=== PATIENT | female | born 1960 | race Caucasian/White ===

== ENCOUNTER 2023-05-04 10:09 | Outpatient (CLI) | payer OTHER, SELFPAY | END 2023-05-04 10:10 | disposition home or self-care (01) | LOC: NFLDREF 10:15 | PROVIDERS: PCP Internal Medicine; Visit Provider Internal Medicine | DX: I10 Essential (primary) hypertension (principal) | CPT/HCPCS: 80048 ==

== ENCOUNTER 2023-05-19 15:44 | Outpatient (CLI) | payer OTHER, SELFPAY ==
--- NOTE | 2023-05-19 16:00 | US_ITS ---
Patient: SHREE MAYORGA Facility:?[facility] R[facility] Patient ID:?[id number] Site Patient ID:?[id number]. Site :?[id number] Study:?US-Abdomen AORTA-05/19/2023 4:36:42 PM Ordering Physician:RUBI ORDAZ Final Report: CLINICAL HISTORY: Abdominal aortic aneurysm. COMPARISON: 02/07/2020, 04/13/2018, 09/10/2016. TECHNIQUE: The abdominal aorta and iliac arteries were examined with basilio-scale ultrasound, color flow and Doppler spectral analysis. Bypass grafts and stents may be evaluated per exam specific protocol. Vessel size, peak systolic velocity (PSV) and velocity ratios if applicable, were obtained and documented at sites per exam specific protocol. FINDINGS: An infrarenal abdominal aortic aneurysm is present measuring 3.5 x 3 cm in transverse and AP dimensions, increased in size from 2.7 x 2.7 cm on prior examination. AP cm Width Cm Proximal AO 2.1 cm. 2.4 cm. Mid AO 1.9 cm. 2.1 cm. Distal AO 3.0 cm. 3.5 cm. Right LUCAS 0.7 cm. 0.9 cm, Left LUCAS 0.7 cm. 1.1 cm. IMPRESSION: Infrarenal abdominal aortic aneurysm measuring up to 3.5 cm, increased in size from 2.7 cm on prior examination. Marcos Oneill M.D. [email or web address] VANESSA/radha / DW/Dictated by: Marcos Oneill MD @ 05/21/2023 12:10:00 PM Signed by:Josefina Oneill MD @05/21/2023 1:04:22 PM (Electronic Signature)
== END 2023-05-19 15:45 | disposition home or self-care (01) ==
LOC: US 15:45
PROVIDERS: PCP Internal Medicine; Visit Provider Internal Medicine
DX: I71.40 Abdominal aortic aneurysm, without rupture, unspecified (principal)
CPT/HCPCS: 76775

== ENCOUNTER 2023-06-26 08:15 | Outpatient (CLI) | payer OTHER, SELFPAY ==
--- OUTSIDE RECORDS SUMMARY | 2023-06-29 11:37 | XMS_ITS | Referral Summary ---
Author Name Unknown Organization [facility] Address [address] [place] [address] Care Team Providers Care First Beater Name Role Phone Elsewhere, Pcp Primary Care Provider Unavailabl e Source Comments Patient records contain information from all sites at [facility]. For routine questions regarding patient records, call [phone] during business hours, M-F 8:00 AM - 5:00 PM Central Time. Record requests for emergency care only can be directed to [phone] at any time.[facility] Encounters Date Type Department Care Team Description 06/19/2023 11:30 AM CDT Virtual Visit Department of Nicotine Dependence, [facility], in [place], [place] [address] [place] [address] Dino Castillo M.A. Nicotine Dependence Cigarettes With Withdrawal (Primary Dx) 06/09/2023 Clinical Communication Department of Vascular Medicine in [place], [place] [address] [place] [address] Isaiah Manrique M.D. Appt Request 06/01/2023 Clinical Communication Division of Pulmonary Medicine in [place], [place] [address] [place] [phone] Trav Brice M.D. 05/31/2023 Clinical Communication Division of Pulmonary Medicine in [place], [place] [address] [place] [phone] Anum Jacobson APRN, C.N.P., D.N.P. Forms (Oxygen concentrator forms) 05/26/2023 Orders Only Department of Vascular Medicine in [place], [place] [address] [place] [phone] Dilcia Ingram D.O. Abdominal Aortic Aneurysm Without Rupture Unspecified (HCC) (Primary Dx) 05/24/2023 8:15 AM CDT Comprehensive Visit Department of Cardiovascular Medicine in [place], [place] [address] [place] [phone] Chuck Townsend M.D., Ph.D. Angina Pectoris Tobacco User 05/23/[address] [address] Rupali Tate M.D. Abdominal Aortic Aneurysm Without Rupture Unspecified (HCC) (Primary Dx) 05/23/2023 2:53 PM CDT - 05/23/2023 11:59 PM CDT Hospital Encounter Department of Cardiovascular Diseases in [address] [phone] Krupa Bates M.D. Angina Pectoris Tobacco User Discharge Disposition: Home or Self Care 05/23/2023 8:30 AM CDT Diagnostic Division of Pulmonary Medicine in [address] [phone] Krupa Bates M.D. Chronic Obstructive Pulmonary Disease (HCC) 05/23/2023 1:30 PM CDT Comprehensive Visit Division of Pulmonary Medicine in [address] [phone] Anum Jacobson APRN, C.NJustinP., D.N.P. Chronic Obstructive Pulmonary Disease (HCC) (Primary Dx); Shortness Of Breath; Snoring 05/22/2023 2:00 PM CDT Diagnostic Division of Pulmonary Medicine in [address] [phone] Krupa Bates M.D. Chronic Obstructive Pulmonary Disease (HCC) 05/22/2023 2:45 PM CDT - 05/22/2023 11:59 PM CDT Hospital Encounter Department of Radiology, [facility], in [place], [place] [address] [place] [address] Perla Lorenz M.D. Shortness Of Breath Discharge Disposition: Home or Self Care 05/09/2023 8:30 AM STUDENT SUCCESS COACH Virtual Visit Department of Nicotine Dependence, [facility] in [place], [place] [address] [place] [phone] Dino Castillo M.A. Nicotine Dependence Cigarettes With Withdrawal (Primary Dx) 05/04/2023 Clinical Communication [facility], Third Floor [address] [place] [phone] Radha Davidson R.R.T., L.R.T. Cardiomyopathy (Hospital COPD RT ten day post discharge call) 04/28/2023 Clinical Communication [facility], Third Floor [address] [place] [phone] Radha Davidson R.R.T., L.R.T. Post Hospital Follow-up (Hospital Copd RT 24-48Hr post discharge call) 04/26/2023 Clinical Communication Division of Community Internal Medicine, [facility] in [place], [place] [address] [place] [phone] Krupa Bates M.D. 04/26/2023 Clinical Communication Department of Pulmonary Rehabilitation in [place], [place] [address] [place] [phone] Krupa Bates M.D. 04/24/2023 1:49 AM STUDENT SUCCESS COACH - 04/26/2023 1:30 PM STUDENT SUCCESS COACH Emergency [facility], Third Floor [address] [place] [phone] Silvia Harris M.D., M.S. Zach Erickson M.D. Dulohery Scrodin, Rola M, M.D. Pneumonia (Primary Dx); Shortness Of Breath; Chronic Obstructive Pulmonary Disease Exacerbation (HCC); Nicotine Dependence Cigarettes With Withdrawal; Chronic Obstructive Pulmonary Disease (HCC); Stroke (HCC) Discharge Disposition: Home or Self Care 04/25/2023 Clinical Communication Department of Cardiovascular Medicine in [place], [place] [address] [place] [address] Non Destructive Evaluation SpecialistZachary M.D. Triage (Rafael Lopez, # [id number]) 04/25/2023 Clinical Communication [facility] [address] [place] [phone] Sanford Villatoro M.D. Post Hospital Follow-up 04/24/2023 Orders Only Division of Pulmonary Medicine in [place], [place] [address] [place] [phone] Dawn Rios M.D. 04/24/2023 Clinical Communication [facility] [address] [place] [phone] Perla Lorenz M.D. Post Hospital Follow-up 04/24/2023 Clinical Communication Department of Nicotine Dependence, [facility] in [place], [place] [address] [place] [address] Dino Castillo M.A. Follow-up Orders; New Med Request from Last 3 Months Allergies Active Allergy Reactions Criticality Noted Date Comments Penicillins Edema (Reselect Reaction) 06/12/2010 Penicillin injectables ONLY Sulfa (Sulfonamide Antibiotics) Hives (Reselect Reaction) 06/12/2010 Medications Medication Sig Dispensed Refills Start Date End Date Status aspirin, buffered, 325 mg tablet Take 1 tablet (325 mg total) by mouth daily. 360 tablet 04/06/2019 Active acetaminophen (TYLENOL) 500 mg tablet Take 1,000 mg by mouth as needed for pain. Active ibuprofen (ADVIL,MOTRIN) 200 mg tablet Take 400 mg by mouth as needed for pain. Active tiotropium-olodate roL (Stiolto Respimat) 2.5-2.5 mcg/actuation inhaler Inhale 2 puffs daily. 4 g 11 04/25/2023 Active amLODIPine (NORVASC) 5 mg tablet Take 1 tablet (5 mg total) by mouth daily. 90 tablet 3 04/25/2023 Active valsartan (DIOVAN) 80 mg tablet Take 1 tablet (80 mg total) by mouth at bedtime. 30 tablet 11 04/25/2023 Active atorvastatin (LIPITOR) 80 mg tabletIndications: Stroke (HCC) Take 1 tablet (80 mg total) by mouth at bedtime. 90 tablet 3 04/26/2023 Active nitroglycerin (NITROSTAT) 0.[address] 1 tablet (0.4 mg total) under the tongue every 5 (five) minutes as needed for chest pain. 30 tablet 04/26/2023 Active formoterol (PERFOROMIST) 20 mcg/2 mL nebulizer solutionIndication s:Shortness Of Breath,Chronic Obstructive Pulmonary Disease (HCC) Inhale 2 mL (20 mcg total) by nebulization 2 (two) times a day. 120 mL 11 05/23/2023 05/22/2024 Active revefenacin (YUPELRI) 175 mcg/3 mL solution for nebulization nebulizer solutionIndication s:Shortness Of Breath,Chronic Obstructive Pulmonary Disease (HCC) Inhale 3 mL (0.175 mg total) by nebulization daily. 90 mL 11 05/23/2023 05/22/2024 Active albuterol 90 mcg/actuation inhalerIndications :Shortness Of Breath,Chronic Obstructive Pulmonary Disease (HCC) Inhale 2 puffs every 4 (four) hours as needed for wheezing or shortness of breath. 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 Resolved Problems Problem Noted Date Diagnosed Date Resolved Date Pain Chest 04/26/2023 04/26/2023 Hypertensive Urgency 04/26/2023 024 Immunizations Name Administration Dates Next Due H1N1 All Forms 12/31/2008 Influenza, Unspecified 12/09/2009 Social History Tobacco Use Types Packs/Day Years Used Date Smoking Tobacco: Former Cigarettes 1 49.1 0 03/14/1974 - 04/24/2023 Smokeless Tobacco: Never Tobacco Cessation:Counseling Given: Not Answered Alcohol Use Standard Drinks/Week Comments Yes 0 (1 standard drink = 0.6 oz pur e alcohol) Very very rarely [facility] Utilities Answer Date Recorded In the past 12 months has e [employer], gas, oil, or water [employer] threatened to shut off services in your home? No 05/17/2023 Humiliation, Afraid, Rape, and Kick questionnair e Answer Date Recorded Within the last year, have y ou been afraid of your partner or ex-partner? No 04/24/2023 Within the last year, have y ou been humiliated or emotionally abused in other ways by your partner or ex-partner? No Within the last year, have y ou been kicked, hit, slapped, or otherwise physically hurt by your partner or ex-partner? No 04/24/2023 Within the last year, have y ou been raped or forced to have any kind of sexual activity by your partner or ex-partner? No 04/24/2023 Social Connection and Isolation Panel [NHANES] A nswer Date Recorded Frequency of Communication with Friends and Fami ly Not on file 07/20/2019 How often do you get together with friends or re latives? Never 07/20/2019 How often do you attend denominational or cheondoism serv ices? Never 07/20/2019 Active Member of Clubs or Organizations Not on f ile 07/20/2019 How often do you attend meet ings of the clubs or organizations you belong to? Never 07/20/2019 Marital Status Not on file 07/20/2019 AUDIT-C Answer Date Recorded Frequency of Alcohol Consumption Monthly or less 02/12/2019 Average Number of Drinks 1 or 2 019 Frequency of Binge Drinking Never 02/03 Overall Financial Resource Strain (CARDIA) Answe r Date Recorded How hard is it for you to pa y for the very basics like food, housing, medical care, and heating? Somewhat hard 07/20/2019 PHQ-2 Answer Date Recorded PHQ-2 Score 2 04/29/2019 [facility] [place] of Occupat ional Health - Occupational Stress Questionnaire Answer Date Recorded Feeling of Stress Only a little 02/12/2019 Exercise Vital Sign Answer Date Recorde d On average, how many days pe r week do you engage in moderate to strenuous exercise (like a brisk walk)? 3 days 05/07/2023 On average, how many minutes do you engage in exercise at this level? 30 min 05/07/2023 Hunger Vital Sign Answer Date Recorded Within the past 12 months, y ou worried that your food would run out before you got the money to buy more. Never true 05/17/19 Within the past 12 months, t he food you bought just didn't last and you didn't have money to get more. Never true 05/17/2023 PRAPARE - Transportation Answer Date Re corded In the past 12 months, has l ack of transportation kept you from medical appointments or from getting medications? No 05/04 In the past 12 months, has l ack of transportation kept you from meetings, work, or from getting things needed for daily living? No 05/17/2023 Depression Answer Date Recor ded PHQ-9 Total Score (max 27) 6 04/29 Nutrition Answer Date Recorded Nutrition: EVOO Fat Source Unknown 05/06 On average, how many serving s of fruits and vegetables do you eat per day (serving size is equal to 1 cup or approximately the size of a tennis ball)? 3-5 05/07/2023 Dental Answer Date Recorded Dental: Regular Dentist Yes 05/07/19 Employment Answer Date Recorded Employment status Employed and actively working without restrictions 05/07/2023 Housing Stability Answer Date Recorded What is your living situation today? I have a [facility] place to live 05/17/2023 Education Answer Date Recorded What is the highest level of school you have completed or the highest degree you have received? Associate degree: academic program 02/12/2019 Sex and Gender Information Value Date Recorded Sex Assigned at Female 05/07/2023 12:13 PM STUDENT SUCCESS COACH Gender Identity Female 07/20/2019 7:51 PM CDT Sexual Orientation Straight 07/20/2019 7: 51 PM CDT Last Filed Vital Signs Vital Sign Reading Time Taken Comments Blood Pressure 172/79 04/26/2023 12:20 PM STUDENT SUCCESS COACH Pulse 83 04/26/2023 12:20 PM STUDENT SUCCESS COACH Temperature 36.6 ??C (97.9 ??F) 04/26/2023 12:[address] Respiratory Rate 16 04/26/2023 12:20 PM STUDENT SUCCESS COACH Oxygen Saturation 93% 05/23/2023 1:21 PM CDT Inhaled Oxygen Concentration - - Weight 78 kg (171 lb 15.3 oz) 04/24/2023 9:30 AM STUDENT SUCCESS COACH Height 153.4 cm (5' 0.39) 04/24/2023 4:35 AM CS T Body Mass Index 33.15 04/24/2023 4:35 AM STUDENT SUCCESS COACH Plan of Treatment Upcoming Encounters Date Type Department Care Team (Late st Contact Info) Description 07/05/2023 9:30 AM CDT Appointment Department of Laboratory Medicine and Pathology, [facility] in [place], [place] [address] [place] [phone] Dilcia Ingram D.O. [address] [place] [phone] 07/05/2023 10:30 AM CDT Hospital Encounter Department of Radiology, [facility] in [place], [place] [address] [place] [address] Dilcia Ingram D.O. [address] [place] [phone] 07/05/2023 1:00 PM CDT Comprehensive Visit Department of Vascular Medicine in [place], [place] [address] [place] [phone] Isaiah Manrique M.D. [address] [place] [phone] Procedures Procedure Name Priority Date/Time Associated Diagnosis Comments ECHO STRESS 2D WITH COLOR AND LIMITED DOPPLER Routine 05/23/2023 4:15 PM CDT Angina Pectoris Tobacco User PULMONARY FUNCTION TESTS Routine 05/23/2023 8:40 AM CDT Shortness Of Breath OXYGEN TITRATION Routine 05/23/2023 8:36 AM CDT Chronic Obstructive Pulmonary Disease (HCC) CT CHEST WITHOUT IV CONTRAST RAD - Routine (most inpatients and all outpatients) 05/22/2023 3:02 PM CDT Shortness Of Breath PUL HOME OVERNIGHT OXIMETRY Routine 05/22/2023 Chronic Obstructive Pulmonary Disease (HCC) OUTSIDE US BODY Routine 05/19/2023 3:55 PM CDT BASIC METABOLIC PANEL, S/P Routine 04/26/2023 10:43 AM STUDENT SUCCESS COACH CBC WITH DIFFERENTIAL, B Routine 04/26/2023 10:43 AM STUDENT SUCCESS COACH NOCTURNAL OXYGEN STUDY - RT Routine 04/25/2023 4:18 PM STUDENT SUCCESS COACH LIPID PANEL, S STAT 04/25/2023 2:27 PM STUDENT SUCCESS COACH TROPONIN T, 5TH GEN, P STAT 04/25/2023 2:27 PM STUDENT SUCCESS COACH ECG Routine 04/25/2023 9:57 AM STUDENT SUCCESS COACH TROPONIN T, 2H/6H, 5TH GEN, P Timed 04/25/2023 9:50 AM STUDENT SUCCESS COACH MRSA/STAPHYLOCOCCU S AUREUS, NASAL, BY PCR Routine 04/25/2023 8:32 AM STUDENT SUCCESS COACH REMOTE OXIMETRY MONITORING CONT. Routine 04/25/2023 8:02 AM STUDENT SUCCESS COACH TROPONIN T, BASELINE, 5TH GEN, P STAT 04/25/2023 7:11 AM STUDENT SUCCESS COACH BASIC METABOLIC PANEL, S/P Routine 04/25/2023 7:11 AM STUDENT SUCCESS COACH CBC WITH DIFFERENTIAL, B Routine 04/25/2023 7:11 AM STUDENT SUCCESS COACH ECG STAT 04/25/2023 6:44 AM STUDENT SUCCESS COACH REMOTE OXIMETRY MONITORING CONT. Routine 04/24/2023 8:00 PM STUDENT SUCCESS COACH REMOTE OXIMETRY MONITORING CONT. Routine 04/24/2023 8:02 AM STUDENT SUCCESS COACH BACTERIA / HALI CULTURE, BLOOD Routine 04/24/2023 7:50 AM STUDENT SUCCESS COACH BACTERIA / HALI CULTURE, BLOOD Routine 04/24/2023 7:36 AM STUDENT SUCCESS COACH REMOTE OXIMETRY MONITORING CONT. Routine 04/24/2023 6:16 AM STUDENT SUCCESS COACH REMOTE OXIMETRY MONITORING CONT. Routine 04/24/2023 6:16 AM STUDENT SUCCESS COACH REMOTE OXIMETRY MONITORING CONT. Routine 04/24/2023 6:16 AM STUDENT SUCCESS COACH TROPONIN T, 2H/6H, 5TH GEN, P Timed 04/24/2023 4:12 AM STUDENT SUCCESS COACH IFLU A, B, SARS COV-2, PCR, RAPID,V STAT 04/24/2023 2:36 AM STUDENT SUCCESS COACH DX CHEST AP OR PA AND LATERAL 2 VIEWS RAD - Semiurgent (Fast; most ED patients; some inpatients) 04/24/2023 2:19 AM STUDENT SUCCESS COACH D-DIMER, P STAT 04/24/2023 2:10 AM STUDENT SUCCESS COACH NT-PRO B-TYPE NATRIURETIC PEPTIDE (BNP), S STAT 04/24/2023 2:09 AM STUDENT SUCCESS COACH TROPONIN T, BASELINE, 5TH GEN, P STAT 04/24/2023 2:09 AM STUDENT SUCCESS COACH BASIC METABOLIC PANEL, S/P STAT 04/24/2023 2:09 AM STUDENT SUCCESS COACH CBC WITH DIFFERENTIAL, B STAT 04/24/2023 2:09 AM STUDENT SUCCESS COACH ECG STAT 04/24/2023 1:59 AM STUDENT SUCCESS COACH from Last 3 Months Results * ECHO STRESS 2D WITH COLOR AND LIMITED DOPPLER (05/23/2023 4:15 PM CDT) Ejection Fraction 64 MC CV EIMS Mid-Ascending Aorta 35 MC CV EIMS LV Mass Index 93 MC CV EIMS LV End-Diastolic Diameter 49 MC CV EIMS LV End-Systolic Diameter 31 MC CV EIMS MV E Velocity 0.8 MC CV EIMS MV e' Velocity Medial 0.06 MC CV EIMS MV E/e' Medial 13.3 MC CV EIMS LV Interventricular Septal Wall Thickness 10 MC CV EIMS LV Posterior Wall Thickness 9 MC CV EIMS LV Relative Wall Thickness 37 MC CV EIMS RA Pressure 5 MC CV EIMS LA Volume Index 26 MC CV EIMS WMSI At Rest 1 MC CV EIMS WMSI At Peak Stress 1 MC CV EIMS Anatomical Region Laterality Modality Echocardiography 05/23/2023 3:03 PM CDT Impressions 05/23/2023 5:22 PM CDT STRESS TEST:Dobutamine was infused from 5 mcg/kg/min to 40.0 mcg/kg/min. A dose of 0.25 mg of atropine was administered. A peak heart rate of 137 BPM was achieved (87% age-predicted maximal HR). The test was terminated due to target heart rate achievement. The patient developed chest discomfort with left arm pain, dyspnea, nausea, and palpitations. The baseline ECG demonstrated sinus rhythm. At baseline there was T-wave inversion in leads aVL, V1, and V2. With stress, there were no S-T changes. APC's and VPC's present at stress including some ventricular quadrigeminy. The stress ECG was negative for ischemia. Please see Nursing Notes for additional information. REST IMAGES: LEFT VENTRICLE:Normal left ventricular chamber size. Normal left ventricular geometry. Calculated 2-D linear left ventricular ejection fraction 64%. No regional wall motion abnormalities. Grade 1/3 left ventricular diastolic dysfunction, consistent with low to normal left ventricular filling pressure at rest. RIGHT VENTRICLE:Normal right ventricular chamber size by visual estimate. Normal right ventricular systolic function. Unable to detect peak tricuspid regurgitation velocity for pulmonary artery systolic pressure calculation. ATRIA:Normal left atrial size. Left atrial volume index 26 ml/m2. Strain imaging examination performed to assess left atrial function. Global averaged left atrial four chamber longitudinal peak systolic strain is normal at 36.5% (normal is greater than 35%). Normal right atrial size by visual estimate. CARDIAC VALVES:Trileaflet aortic valve. Sclerotic aortic valve. No aortic valve regurgitation. Normal mitral valve. Trivial mitral valve regurgitation. Normal pulmonary valve. Trivial pulmonary valve regurgitation. Normal tricuspid valve. Trivial tricuspid valve regurgitation. OTHER ECHO FINDINGS:Normal inferior vena cava size with normal inspiratory collapse (>50%). Normal mid ascending aorta diameter of 35 mm. No intracardiac mass or thrombus identified. No ??pericardial effusion. STRESS IMAGES:Dobutamine stress echocardiogram negative for myocardial ischemia. Ejection fraction response from 64% at rest to 70% at peak stress. Left ventricular end-systolic volume decreased with stress. No regional wall motion abnormalities with stress. For the complete report, see the Order-Level Documents. Narrative 05/23/2023 5:22 PM CDT For the complete report, see the Order-Level Documents. Hemodynamics Heart Rate: 78 BPM Blood Pressure: 117 / 55 mmHg ECG: Normal sinus rhythm, T-wave inversion Final Impressions 1. Dobutamine stress echocardiogram negative for myocardial ischemia. Note somewhat difficult lateral wall endocardial definition (no contrast), which made the assessment for ischemia in that territory more challenging. 2. A peak heart rate of 137 BPM was achieved (87% age-predicted maximal HR). 3. Ejection fraction response from 64% at rest to 70% at peak stress, left ventricular end-systolic volume decreased with stress. 4. No regional wall motion abnormalities with stress. 5. The stress ECG was negative for ischemia. Procedure Note Jerome Gallo M.D. - 05/23/2023 For the complete report, see the Order-Level Documents. Hemodynamics Heart Rate: 78 BPM Blood Pressure: 117 / 55 mmHg ECG: Normal sinus rhythm, T-wave inversion Final Impressions 1. Dobutamine stress echocardiogram negative for myocardial ischemia. Notesomewhat difficult lateral wall endocardial definition (no contrast),which made the assessment for ischemia in that territory morechallenging. 2. A peak heart rate of 137 BPM was achieved (87% age-predicted maximalHR). 3. Ejection fraction response from 64% at rest to 70% at peak stress, leftventricular end-systolic volume decreased with stress. 4. No regional wall motion abnormalities with stress. 5. The stress ECG was negative for ischemia. Findings STRESS TEST:Dobutamine was infused from 5 mcg/kg/min to 40.0 mcg/kg/min. Adose of 0.25 mg of atropine was administered. A peak heart rate of 137 BPMwas achieved (87% age-predicted maximal HR). The test was terminated dueto target heart rate achievement. The patient developed chest discomfortwith left arm pain, dyspnea, nausea, and palpitations. The baseline ECGdemonstrated sinus rhythm. At baseline there was T-wave inversion in leadsaVL, V1, and V2. With stress, there were no S-T changes. APC's and VPC'spresent at stress including some ventricular quadrigeminy. The stress ECGwas negative for ischemia. Please see Nursing Notes for additionalinformation. REST IMAGES: LEFT VENTRICLE:Normal left ventricular chamber size. Normal leftventricular geometry. Calculated 2-D linear left ventricular ejectionfraction 64%. No regional wall motion abnormalities. Grade 1/3 leftventricular diastolic dysfunction, consistent with low to normal leftventricular filling pressure at rest. RIGHT VENTRICLE:Normal right ventricular chamber size by visual estimate.Normal right ventricular systolic function. Unable to detect peaktricuspid regurgitation velocity for pulmonary artery systolic pressurecalculation. ATRIA:Normal left atrial size. Left atrial volume index 26 ml/m2. Strainimaging examination performed to assess left atrial function. Globalaveraged left atrial four chamber longitudinal peak systolic strain isnormal at 36.5% (normal is greater than 35%). Normal right atrial size byvisual estimate. CARDIAC VALVES:Trileaflet aortic valve. Sclerotic aortic valve. No aorticvalve regurgitation. Normal mitral valve. Trivial mitral valveregurgitation. Normal pulmonary valve. Trivial pulmonary valveregurgitation. Normal tricuspid valve. Trivial tricuspid valveregurgitation. OTHER ECHO FINDINGS:Normal inferior vena cava size with normal inspiratorycollapse (>50%). Normal mid ascending aorta diameter of 35 mm. Nointracardiac mass or thrombus identified. No pericardial effusion. STRESS IMAGES:Dobutamine stress echocardiogram negative for myocardialischemia. Ejection fraction response from 64% at rest to 70% at peakstress. Left ventricular end-systolic volume decreased with stress. Noregional wall motion abnormalities with stress. For the complete report, see the Order-Level Documents. Krupa Bates M.D. CV ECHO PROCEDU RES * Pulmonary Function Tests (05/23/2023 8:40 AM CDT) PostFVC 2.40 L 05/23/2023 6:13 PM CDT [facility] PostFEV1 1.09 L 05/23/2023 6:13 PM CDT [facility] SUITE FEV1/FVC POST 45.39 % 05/23/2023 6:13 PM CDT [facility] FEF 25-75 % POST 0.29 L/s 05/23/2023 6:13 PM CDT [facility] PEF POST 3.26 L/s 05/23/2023 6:13 PM CDT [facility] PIF POST 3.04 L/s 05/23/2023 6:13 PM CDT [facility] SUITE FEF 50 % FIF 50 POST 11.51 % 05/23/2023 6:13 PM CDT [facility] FET POST 14.52 sec 05/23/2023 6:13 PM CDT [facility] SUITE DLCO 10.05 ml/(min*mm Hg) 05/23/2023 6:13 PM CDT [facility] SUITE DLCOc 9.96 ml/(min*mm Hg) 05/23/2023 6:13 PM CDT [facility] HB 13.70 g(Hb)/dL 05/23/2023 6:13 PM CDT [facility] VA 4.24 L 05/23/2023 6:13 PM CDT [facility] SUITE TLC 5.06 L 05/23/2023 6:13 PM CDT [facility] FRCPLETH PROVBASE 3.39 L 05/23/2023 6:13 PM CDT [facility] RV 2.58 L 05/23/2023 6:13 PM CDT [facility] RV % TLC PRE 50.88 % 05/23/2023 6:13 PM CDT [facility] SU[facility] FVC 1.95 L 05/23/2023 6:13 PM CDT [facility] SUITE FEV1 0.89 L 05/23/2023 6:13 PM CDT [facility] FEV1/FVC 45.73 % 05/23/2023 6:13 PM CDT [facility] SU[facility] MKY20-60% 0.24 L/s 05/23/2023 6:13 PM CDT [facility] PEF PRE 3.13 L/s 05/23/2023 6:13 PM CDT [facility] PIF PRE 2.36 L/s 05/23/2023 6:13 PM CDT [facility] FEF 50 % FIF 50 PRE 13.31 % 05/23/2023 6:13 PM CDT [facility] FET PRE 12.10 sec 05/23/2023 6:13 PM CDT [facility] SUBSTANCE POST Albuterol 05/23/2023 6:13 PM CDT [facility] 05/23/2023 8:40 AM CDT Impressions [facility] - 05/23/2023 6:13 PM CDT Abnormal. Moderate obstruction with air trapping and a large improvement in flows after bronchodilator administration using FVC criteria. Diffusing capacity (adjusted for hemoglobin) is moderately reduced, consistent with a pulmonary parenchymal or vascular process. Narrative Procedure Note Paddy London M.D. - 05/23/2023 IMPRESSION: Abnormal. Moderate obstruction with air trapping and a large improvementin flows after bronchodilator administration using FVC criteria. Diffusingcapacity (adjusted for hemoglobin) is moderately reduced, consistent witha pulmonary parenchymal or vascular process. Perla Lorenz M.D. PFT ORDERABLES [facility] NA * Oxygen Titration (05/23/2023 8:36 AM CDT) [1] Inspired Gas (L/min) Room air MMODAL [1] Interface NA MMODAL [1] Speed (mph) Rest MMODAL [1] Grade (%) NA MMODAL [1] Time (min) 5.0 MMODAL [1] SpO2 (%) 96 MMODAL [1] Heart Rate 85 MMODAL [1] Ratings of Perceived Exertion (6-20) 6 MMODAL [2] Inspired Gas (L/min) Room air MMODAL [2] Interface NA MMODAL [2] Speed (mph) 1.2 MMODAL [2] Grade (%) 0 MMODAL [2] Time (min) 2.0 MMODAL [2] SpO2 (%) 92 MMODAL [2] Heart Rate 99 MMODAL [2] Ratings of Perceived Exertion (6-20) 8 MMODAL [3] Inspired Gas (L/min) Room air MMODAL [3] Interface NA MMODAL [3] Speed (mph) 1.5 MMODAL [3] Grade (%) 3 MMODAL [3] Time (min) 2.0 MMODAL [3] SpO2 (%) 93 MMODAL [3] Heart Rate 104 MMODAL [3] Ratings of Perceived Exertion (6-20) 11 MMODAL Comment Total exercise time 4.0 minutes. MMODAL Krupa Bates M.D. PFT ORDERABLES [facility]AL NA * CT Chest without IV Contrast (05/22/2023 3:02 PM CDT) Anatomical Region Laterality Modality Chest, Thoracic RST LOS, Tho racic ARZ LOS, Thoracic FLA LOS N/A Computed Tomography, Compute d Tomography Impressions 05/22/2023 5:44 PM CDT 1. ??Severe upper lung predominant centrilobular seen in the. 2. ??Severe coronary artery calcification. Narrative 05/22/2023 5:44 PM CDT EXAM: CT CHEST WITHOUT IV CONTRAST COMPARISON: 11/25/[address] FINDINGS: Airways, lungs, pleura: Severe upper lung predominant centrilobular emphysema. Mild diffuse bronchial wall thickening with scattered endobronchial plugging. Mild atelectasis or scarring is present in both lower lungs. There are no indeterminant lung nodules. Calcified lung nodules are compatible with sequelae of prior granulomatous disease. Cardiovascular: ??Severe coronary artery calcifications and moderate aorta and proximal arch vessel calcifications. Stable mild dilation of the distal descending thoracic aorta. Lymph nodes: No lymphadenopathy. Bones: Bones are diffusely demineralized. There is mild vertebral body compression deformity at several levels in the middle thoracic spine. Procedure Note Flo Amezquita M.D. - 05/22/2023 EXAM: CT CHEST WITHOUT IV CONTRAST COMPARISON: 11/25/[address] FINDINGS: Airways, lungs, pleura: Severe upper lung predominant centrilobularemphysema. Mild diffuse bronchial wall thickening with scatteredendobronchial plugging. Mild atelectasis or scarring is present in bothlower lungs. There are no indeterminant lung nodules. Calcified lung nodules are compatible with sequelae of priorgranulomatous disease. Cardiovascular: Severe coronary artery calcifications and moderate aortaand proximal arch vessel calcifications. Stable mild dilation of thedistal descending thoracic aorta. Lymph nodes: No lymphadenopathy. Bones: Bones are diffusely demineralized. There is mild vertebral bodycompression deformity at several levels in the middle thoracic spine. IMPRESSION: 1. Severe upper lung predominant centrilobular seen in the. 2. Severe coronary artery calcification. Perla Lorenz M.D. [place] CT PROCEDURES * Home Overnight Oximetry (05/22/2023) 05/22/2023 Impressions [facility] - 05/24/2023 7:14 AM CDT Overnight oximetry test was performed on room air. ??The patient denied any alcohol or sedative medication on the night of the study and indicated sleep quality was same as usual. ??Kent Sleepiness Scale was 5. ??Baseline oxygen saturation of 94% with mean overnight saturation ranging between 88 and 94%. ??Variation in mean oxygen saturation may suggest a positional gas exchange abnormality. ??Superimposed oscillatory desaturations have an appearance most suggestive of artifact. ??Please note that oxygen saturation was less than 89% for 177.1 minutes overnight. Impression: ??Abnormal. ??Mild positional gas exchange abnormality. Dictated by: Srini Martins M.B., Ch.B., M.P.H. Physician: Paddy London M.D. [id number] Narrative Procedure Note Paddy London M.D. - 05/24/2023 IMPRESSION: Overnight oximetry test was performed on room air. The patient denied anyalcohol or sedative medication on the night of the study and indicatedsleep quality was same as usual. [place] Sleepiness Scale was 5.Baseline oxygen saturation of 94% with mean overnight saturation ranging between 88 and 94%. Variation in meanoxygen saturation may suggest a positional gas exchange abnormality.Superimposed oscillatory desaturations have an appearance most suggestiveof artifact. Please note that oxygen saturation was less than 89% for 177.1 minutes overnight. Impression: Abnormal. Mild positional gas exchange abnormality. Dictated by: Srini Martins M.B., ChRadha, M.P.H. Physician: Paddy London M.D. [id number] Krupa Bates M.D. PFT ORDERABLES [place] [facility] * US AORTA-Outside US Body (05/19/2023 3:55 PM CDT) Narrative IIUT - 05/23/2023 4:17 PM CDT This order has been created and auto-finalized to support the import of outside images. If available, original interpretation can be found on the Media Tab in Chart Review, in Document Viewer, or as an image in QREADS. If a re-interpretation or overread is required please follow defined workflow. ?? Provider Not In System IMG US PROCEDURES Performing Organization Address [facility] Co de Phone Number [facility] NA * (ABNORMAL) CBC with Differential, Blood (04/26/2023 10:43 AM STUDENT SUCCESS COACH) Only the most recent of3 resultswithin the time period is included. Hemoglobin 13.7 11.6 - 15.0 g/dL 04/26/2023 11:33 AM STUDENT SUCCESS COACH DTL Hematocrit 42.1 35.5 - 44.9 % 04/26/2023 11:33 AM STUDENT SUCCESS COACH DTL Erythrocytes 4.38 3.92 - 5.13 x10(12)/L 04/26/2023 11:33 AM STUDENT SUCCESS COACH DTL MCV 96.1 78.2 - 97.9 fL 04/26/2023 11:33 AM STUDENT SUCCESS COACH DTL RBC Distrib Width 13.4 12.2 - 16.1 % 04/26/2023 11:33 AM STUDENT SUCCESS COACH DTL Platelet Count 327 157 - 371 x10(9)/L 04/26/2023 11:33 AM STUDENT SUCCESS COACH DTL Leukocytes 13.4(H) 3.4 - 9.6 x10(9)/L 04/26/2023 11:33 AM STUDENT SUCCESS COACH DTL Neutrophils 10.36(H) 1.56 - 6.45 x10(9)/L 04/26/2023 11:33 AM STUDENT SUCCESS COACH PM Lymphocytes 2.08 0.95 - 3.07 x10(9)/L 04/26/2023 11:33 AM STUDENT SUCCESS COACH DTL Monocytes 0.77 0.26 - 0.81 x10(9)/L 04/26/2023 11:33 AM STUDENT SUCCESS COACH DTL Eosinophils 0.15 0.03 - 0.48 x10(9)/L 04/26/2023 11:33 AM STUDENT SUCCESS COACH DTL Basophils 0.06 0.01 - 0.08 x10(9)/L 04/26/2023 11:33 AM STUDENT SUCCESS COACH DTL Blood (Blood, Venous) 04/26/2023 10:43 AM STUDENT SUCCESS COACH 04/26/2023 11:15 AM STUDENT SUCCESS COACH Krupa Bates M.D. LAB BLOOD ADD-O N [facility] [address] [place] [address], [facility] [address] [place] [address] * Basic Metabolic Panel (04/26/2023 10:43 AM STUDENT SUCCESS COACH) Only the most recent of3 resultswithin the time period is included. [facility] Potassium, S 4.9 3.6 - 5.2 mmol/L 04/26/2023 12:05 PM STUDENT SUCCESS COACH DTL Sodium, S 137 135 - 145 mmol/L 04/26/2023 12:05 PM STUDENT SUCCESS COACH DTL Chloride, S 99 98 - 107 mmol/L 04/26/2023 12:05 PM STUDENT SUCCESS COACH DTL Bicarbonate, S 28 22 - 29 mmol/L 04/26/2023 12:05 PM STUDENT SUCCESS COACH DTL Anion Gap 10 7 - 15 04/26/2023 12:05 PM STUDENT SUCCESS COACH DTL BUN (Blood Urea Nitrogen), S 19 6 - 21 mg/dL 04/26/2023 12:05 PM STUDENT SUCCESS COACH DTL Creatinine 0.63 0.59 - 1.04 mg/dL 04/26/2023 12:05 PM STUDENT SUCCESS COACH DTL Estimated GFR (eGFR) >90 >=60 mL/min/BSA 04/26/2023 12:05 PM STUDENT SUCCESS COACH DTL Comment: Estimated GFR calculated using the 2020 CKD_EPI creatinine equation. Calcium, Total, S 9.3 8.8 - 10.2 mg/dL 04/26/2023 12:05 PM STUDENT SUCCESS COACH DTL Glucose, S 95 70 - 140 mg/dL 04/26/2023 12:05 PM STUDENT SUCCESS COACH DTL Blood (Blood, Venous) 04/26/2023 10:43 AM STUDENT SUCCESS COACH 04/26/2023 11:31 AM STUDENT SUCCESS COACH Krupa Bates M.D. LAB BLOOD ADD-O N [facility] [address] [place] [address], [facility] [address] [place] [address] * Lipid Panel (04/25/2023 2:27 PM STUDENT SUCCESS COACH) Triglycerides 81 mg/dL 04/25/2023 3:29 PM STUDENT SUCCESS COACH DTL Comment: ----REFERENCE VALUE---- Normal: <150 mg/dL Borderline High: 150-199 mg/dL High: 200-499 mg/dL Very High: > or =500 mg/dL Cholesterol, Total 153 mg/dL 2023 3:29 PM STUDENT SUCCESS COACH DTL Comment: ----REFERENCE VALUE---- Desirable: < 200 mg/dL Borderline High: 200 - 239 mg/dL High: > or = 240 mg/dL Cholesterol, LDL, Calculated 70 mg/dL 04/25/2023 3:29 PM STUDENT SUCCESS COACH DTL Comment: ----REFERENCE VALUE---- Desirable: <100 mg/dL Above Desirable: 100-129 mg/dL Borderline High: 130-159 mg/dL High: 160-189 mg/dL Very High: >=190 mg/dL ----ADDITIONAL INFORMATION---- LDL cholesterol calculated using the Cee/NIH equation. Cholesterol, HDL, S 68 >=50 mg/dL 04/25/2023 3:29 PM STUDENT SUCCESS COACH DTL Cholesterol, Non-HDL, Calculated 85 mg/dL 04/25/2023 3:29 PM STUDENT SUCCESS COACH DTL Comment: ----REFERENCE VALUE---- Desirable: <130 mg/dL Above Desirable: 130-159 mg/dL Borderline High: 160-189 mg/dL High: 190-219 mg/dL Very High: > or =220 mg/dL Fasting (8 HR or more) No 04/25/2023 3:08 PM STUDENT SUCCESS COACH DTL Blood (Blood, Venous) 04/25/2023 2:27 PM STUDENT SUCCESS COACH 04/25/2023 3:08 PM STUDENT SUCCESS COACH Krupa Bates M.D. LAB BLOOD ADD-O N Performing Organization Address [facility]/ZIP Co de Phone Number [address] [place] [address] * Troponin T, 5th Generation (04/25/2023 2:27 PM STUDENT SUCCESS COACH) Pathologist [facility] Troponin T, 5th gen 7 <=10 ng/L 04/25/2023 2:50 PM STUDENT SUCCESS COACH [facility] Blood (Blood, Venous) 04/25/2023 2:27 PM STUDENT SUCCESS COACH 04/25/2023 2:34 PM STUDENT SUCCESS COACH Krupa Bates M.D. LAB BLOOD ADD-O N Performing Organization Address [facility] [place] [address] * ECG 12 Lead (04/25/2023 9:57 AM STUDENT SUCCESS COACH) Only the most recent of3 resultswithin the time period is included. Ventricular Rate ECG/Min 90 BPM MUSE MS Interval 136 ms MUSE QRSD Interval 84 ms MUSE QT Interval 346 ms MUSE QTC Interval 423 ms MUSE P [place] 69 degrees MUSE R [place] 70 degrees MUSE T Wave [place] 58 degrees MUSE 04/25/2023 9:57 AM STUDENT SUCCESS COACH 04/25/2023 10:00 AM STUDENT SUCCESS COACH Impressions MUSE - 04/25/2023 10:00 AM STUDENT SUCCESS COACH Sinus rhythm Premature ventricular complexes Otherwise normal ECG When compared with ECG of 25-APR-2023 06:44, Premature ventricular complexes are now present Reviewed by GAVIN Chatterjee Narrative Procedure Note Ranjeet Gasca Jr., M.D. - 04/25/2023 IMPRESSION: Sinus rhythm Premature ventricular complexes Otherwise normal ECG When compared with ECG of 25-APR-2023 06:44, Premature ventricular complexes are now present Reviewed by GAVIN Chatterjee Krupa Bates M.D. ECG ORDERABLES MUSE NA * Troponin T, 2h/6h, 5th Gen (04/25/2023 9:50 AM STUDENT SUCCESS COACH) Only the most recent of2 resultswithin the time period is included. Troponin T, 2 hr, 5th gen 8 <=10 ng/L 04/25/2023 11:03 AM STUDENT SUCCESS COACH DTL 2H Delta 1 ng/L 04/25/2023 11:03 AM STUDENT SUCCESS COACH DTL 2H Delta Interp Not Changing 04/25/2023 11:03 AM STUDENT SUCCESS COACH DTL Troponin T, 6 hr, 5th gen CANCELED ng/L 04/25/2023 11:03 AM STUDENT SUCCESS COACH DTL Comment:Result canceled by t he ancillary. 6H Delta CANCELED ng/L 04/25/2023 11:03 AM STUDENT SUCCESS COACH [facility] Comment:Result canceled by t he ancillary. Blood (Blood, Venous) 04/25/2023 9:50 AM STUDENT SUCCESS COACH 04/25/2023 10:09 AM STUDENT SUCCESS COACH Narrative [facility] - 04/25/2023 11:03 AM STUDENT SUCCESS COACH Specimen Information: Specimen ID: [id number] Specimen Type: Blood Specimen Collection Start Date: 04/25/2023 ??9:50 AM Specimen Received Date: 04/25/2023 10:09 AM Specimen ID: [id number] Specimen Type: Blood Elgin Sherwood M.D., Ph.D. LAB BLO OD TROPONIN Performing Organization Address City/[facility] Co de Phone Number [facility] [address] [place] [address] STMA [facility] [address] [place] [address] * Staph aureus / MRSA, Nasal, PCR (04/25/2023 8:32 AM STUDENT SUCCESS COACH) Staphylococcus aureus, PCR Negative Negative 04/25/2023 11:59 AM STUDENT SUCCESS COACH DTL MRSA, PCR Negative Negative 04/25/2023 11:59 AM STUDENT SUCCESS COACH DTL Swab (Nares) 04/25/2023 8:32 AM STUDENT SUCCESS COACH 04/25/2023 10:33 AM STUDENT SUCCESS COACH Krupa Bates M.D. LAB MICROBIOLOG Y - GENERAL ORDERABLES Performing Organization Address [facility] de Phone Number [facility] [address] [place] [address] * Troponin T, Baseline, 5th gen (04/25/2023 7:11 AM STUDENT SUCCESS COACH) Only the most recent of2 resultswithin the time period is included. Troponin T, Baseline, 5th gen 7 <=10 ng/L 04/25/2023 7:37 AM STUDENT SUCCESS COACH [facility] Blood (Blood, Venous) 04/25/2023 7:11 AM STUDENT SUCCESS COACH 04/25/2023 7:19 AM STUDENT SUCCESS COACH Elgin Sherwood M.D., Ph.D. LAB BLO OD TROPONIN Performing Organization Address City/[facility] Co de Phone Number [facility] [address] [facility] [address] [place] [address] * Bacteria / Hali Culture, Blood #2 (04/24/2023 7:50 AM STUDENT SUCCESS COACH) Only the most recent of2 resultswithin the time period is included. Bacteria/Deborah da Culture, Blood No growth after 5 days of incubation. 04/29/2023 10:02 AM STUDENT SUCCESS COACH DTL Blood (Blood, Peripheral Draw) 04/24/2023 7:50 AM STUDENT SUCCESS COACH 04/24/2023 9:13 AM STUDENT SUCCESS COACH Comment:Specimen Source Site : Blood Aurea García M.D. LAB ALEJANDRO ROBIOLOGY - GENERAL ORDERABLES [address] [place] [address] * Influenza A/B, SARS CoV-2, PCR, Rapid Symptomatic (04/24/2023 2:36 AM STUDENT SUCCESS COACH) Pathologist [facility] Influenza A, PCR, Rapid, V Negative Negative 04/24/2023 3:06 AM STUDENT SUCCESS COACH [facility] Influenza B, PCR, Rapid, V Negative Negative 04/24/2023 3:06 AM STUDENT SUCCESS COACH [facility] SARS CoV-2, PCR, Rapid, V Undetected Undetected 04/24/2023 3:06 AM STUDENT SUCCESS COACH [facility] Comment: ----ADDITIONAL INFORMATION---- This RT-PCR test was performed using the [employer] SARS-CoV-2 and Influenza A/B Reagent assay from [employer], which has received Emergency Use Authorization(EUA) by the U.S. Food and Drug Administration. Fact sheets for this Emergency Use Authorization (EUA) assay can be found at the following links: For Healthcare Providers: https://www.fda.gov/media/703546/download For Patients: https://www.fda.gov/media/087258/download Infl A/B, SARS CoV-2, PCR, Source Swab, Nasopharynx 04/24/2023 2:41 AM STUDENT SUCCESS COACH [facility] Swab (Nasopharynx) 04/24/2023 2:36 AM STUDENT SUCCESS COACH 04/24/2023 2:41 AM STUDENT SUCCESS COACH Silvia Harris M.D., MJustinS. LAB MICROBIO LOGY - GENERAL ORDERABLES [facility] [address] [place] [address], [facility] [address] [place] [address] * DX Chest AP or PA and Lateral 2 Views (04/24/2023 2:19 AM STUDENT SUCCESS COACH) Anatomical Region Laterality Modality Chest, Thoracic RST LOS, Tho racic ARZ LOS, Thoracic FLA LOS N/A Digital Radiography Impressions 04/24/2023 2:39 AM STUDENT SUCCESS COACH Since 12/24/2018, new hazy ill-defined opacities throughout the bilateral lung bases which could be seen in the setting of developing infectious/inflammatory process. Remainder is not significantly changed. Vascular calcifications. Chest is otherwise negative. Narrative 04/24/2023 2:39 AM STUDENT SUCCESS COACH EXAM: ??DX CHEST AP OR PA AND LATERAL 2 VIEWS Procedure Note Suzi Anderson M.D. - 04/24/2023 EXAM: DX CHEST AP OR PA AND LATERAL 2 VIEWS IMPRESSION: Since 12/24/2018, new hazy ill-defined opacities throughout the bilaterallung bases which could be seen in the setting of developinginfectious/inflammatory process. Remainder is not significantly changed.Vascular calcifications. Chest is otherwise negative. Silvia Harris M.D., M.S. IMG DIAGNOST IC IMAGING PROCEDURES * D-Dimer (04/24/2023 2:10 AM STUDENT SUCCESS COACH) D-Dimer, P 323 <=500 ng/mL FEU 04/24/2023 2:22 AM STUDENT SUCCESS COACH [facility] Comment: ----ADDITIONAL INFORMATION---- D-dimer values less than or equal to 500 ng/mL fibrinogen equivalent units (FEU) may be used in conjunction with clinical pre-test probability to exclude deep vein thrombosis (DVT) and/or pulmonary embolism (PE). Blood (Blood, Venous) 04/24/2023 2:10 AM STUDENT SUCCESS COACH 04/24/2023 2:14 AM STUDENT SUCCESS COACH Silvia Harris M.D., M.S. LAB BLOOD AD D-ON Performing Organization Address City/[facility]/ZIP Co de Phone Number [facility] [address] [place] [address], [facility] [address] [place] [address] * NT-Pro B-Type Natriuretic Peptide (BNP) (04/24/2023 2:09 AM STUDENT SUCCESS COACH) NT-Pro BNP 94 <=226 pg/mL 04/24/2023 2:50 AM STUDENT SUCCESS COACH [facility] Comment: NT-proBNP values less than 300 pg/mL have a 99% negative predictive value for excluding acute congestive heart failure. A cutoff of 1200 pg/mL for patients with an eGFR<60 yields a diagnostic sensitivity and specificity of 89% and 72% for acute congestive heart failure. A diagnostic NT-proBNP cutoff of 900 pg/mL has been suggested in adults 50-75 years of age in the absence of renal failure. Blood (Blood, Venous) 04/24/2023 2:09 AM STUDENT SUCCESS COACH 04/24/2023 2:14 AM STUDENT SUCCESS COACH Silvia Harris M.D., M.S. LAB BLOOD AD D-ON [facility] [address] [place] [address], [facility] [address] [place] [address] from Last 3 Months Advance Directives For more information, please contact: [phone] * Full Code (Latest Code Status on File) Date Activated Date Inactivated Comments 04/24/2023 5:03 AM 04/26/2023 3:35 PM Question Answer Comments Full Code: Discussed * Full Code Date Activated Date Inactivated Comments 01/04/2019 11:20 PM 01/05/2019 7:41 PM Question Answer Comments Full Code: Discussed Care Teams First [employer] Relationship Specialty Start Date End Date Elsewhere, Pcp PCP - General Internal Medicine 04/24/23
--- OUTSIDE RECORDS SUMMARY | 2023-06-29 11:37 | XMS_ITS | Encounter Summary ---
Author Name Unknown Organization [facility] Address [address] [place] [address] Care Team Providers Care Shade Matcher Name Role Phone Elsewhere, Pcp Primary Care Provider Unavailabl e Reason for Visit * Outpatient (Routine) - Closed Specialty Diagnoses / Procedures Referred By Carey escobar Referred To Contact Nicotine Dependence Dino Castillo M.A. [facility] Referral ID Status Reason Start Date Expiration Date Visits Re quested Visits Authorized [id number] Closed 05/12/2023 11/10/2024 1 1 Encounter Details Date Type Department Care Team (Late st Contact Info) Description 06/19/2023 11:30 AM CDT Virtual Visit Department of Nicotine Dependence, [facility], in [place], [place] [address] [place] [phone] Dino Castillo M.A. Nicotine Dependence Cigarettes With Withdrawal (Primary Dx) Social History Tobacco Use Types Packs/Day Years Used Date Smoking Tobacco: Former Cigarettes 1 49.1 0 03/14/1974 - 04/24/2023 Smokeless Tobacco: Never Alcohol Use Standard Drinks/Week Comments Yes 0 (1 standard drink = 0.6 oz pur e alcohol) Very very rarely [facility] Utilities Answer Date Recorded In the past 12 months has [employer] electric, gas, oil, or water company threatened to shut off services in your [...] Never 07/20/2019 How often do you attend orthodoxy or mosque serv ices? Never 07/20/2019 Active Member of [...] Answer Date Recorded PHQ-2 Score 2 04/29/2019 [facility] - Occupational Stress [...] money to buy more. Never true 05/17/19 24 Within the past 12 months, t he [...] your living situation today? I have a [facility] to live 05/17/2023 Education Answer Date Recorded What is the highest level of school you have completed or the highest degree you have received? Associate degree: academic program 02/12/2019 Sex and Gender Information Value Date Recorded Sex Assigned at Female 05/07/2023 12:13 PM DIRECTOR OF MAINTENANCE Gender Identity Female 07/20/2019 7:51 PM CDT Sexual Orientation Straight 07/20/2019 7: 51 PM CDT documented as of this encounter Consult Notes * Dino Castillo M.A. - 06/19/2023 11:30 AM CDT OBJECTIVE Genevieve Allison attended a phone follow-up appointment regarding her tobacco use. Medications Patient reports that she is currently using Nicotine patch: 14 mg. ASSESSMENT Patient reports she has been tobacco free for the past two months and has been tapering down using the patch. She expressed frustration regarding gaining 20 lbs and feels that she doesn't eat any more than she previously used to. When asked about what continues to motivated her to be tobacco free she stated the weight gain itself is making me thinking about going back to smoking because the weight is also bad for health. I quit because I was having difficulties with my health. Counselor provided patient with affirmations to confirm progress and encouraged patient to discuss her weight gain with her primary care provider to create a plan for success. Patient has an upcomingappointment to meet with her PCP and will discuss this during that time. PLAN Patient will continue on the 14 mg patch the next few weeks before tapering down to 7 mg nicotine patch. The patient was encouraged to contact the nicotine dependence center for questions or concerns. #1 Tobacco Use Disorder 10 minutes was spent on tobacco counseling. documented in this encounter Plan of Treatment Upcoming Encounters Date Type Department Care Team (Late st Contact Info) Description 07/05/2023 9:30 AM CDT Appointment Department of Laboratory Medicine and Pathology, [facility] in [place], [place] [address] [place] [phone] Dilcia Ingram D.O. [address] [place] [phone] 07/05/2023 10:30 AM CDT Hospital Encounter Department of Radiology, [place], [place] [address] [place] [phone] Dilcia Ingram D.O. [address] [place] [phone] 07/05/2023 1:00 PM CDT Comprehensive Visit Department of Vascular Medicine in [place], [place] [address] [place] [phone] Isaiah Manrique M.D. [address] [place] [phone] documented as of this encounter Visit Diagnoses Diagnosis Nicotine Dependence Cigarettes With Withdrawal- Primary documented in this encounter Additional Health Concerns Assessment Noted Time PHQ-9 Depression Total Score: 6 04/29/19 20 12:40 PM DIRECTOR OF MAINTENANCE documented as of this encounter Care Teams Shade Matcher Relationship Specialty Start Date End Date Elsewhere, Pcp PCP - General Internal Medicine 04/24/23 documented as of this encounter
--- OUTSIDE RECORDS SUMMARY | 2023-06-29 11:37 | XMS_ITS ---
Author Name Unknown Organization [facility] Address [address] [place] [address] Care Team Providers Care Diamond Wheel Edger Name Role Phone Unavailable Unavailable Unavailable Surgery Details Not on file Complications Check Surgery Details section. Procedure Estimated Blood Loss Check Surgery Details section. Procedure Findings Check Surgery Details section. Procedure Specimens Taken Check Surgery Details section.
--- OUTSIDE RECORDS SUMMARY | 2023-06-29 11:37 | XMS_ITS | Clinical Summary ---
Author Name Unknown Organization [facility] Address [address] [place] [address] Care Team Providers Care Maintenance And Engineering Manager Name Role Phone Elsewhere, Pcp Primary Care Provider Unavailabl e Source Comments Patient records contain information from all sites at [facility]. For routine questions regarding patient records, call [phone] during business hours, M-F 8:00 AM - 5:00 PM Central Time. 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 Nicotine Dependence Cigarettes With Withdrawal (Primary Dx) 06/09/2023 Clinical Communication Department of Vascular Medicine in [address] [phone] Isaiah Manrique M.D. Appt Request 06/01/2023 Clinical Communication Division of Pulmonary Medicine in [place], [place] [address] [place] [phone] Trav Brice M.D. 05/31/2023 Clinical Communication Division of Pulmonary Medicine in [place], [place] [address] [place] [phone] Anum Jacobson, AMEENA, C.N.P., D.N.P. Forms (Oxygen concentrator forms) 05/26/2023 Orders Only Department of Vascular Medicine in [address] [phone] Dilcia Ingram D.O. Abdominal Aortic Aneurysm Without Rupture Unspecified (HCC) (Primary Dx) 05/24/2023 8:15 AM CDT Comprehensive Visit Department of Cardiovascular Medicine in [address] [phone] Chuck Townsend M.D., Ph.D. Angina Pectoris Tobacco User 05/23/2023 2:53 PM CDT - 05/23/2023 11:59 PM CDT Hospital Encounter Department of Cardiovascular Diseases in [place], [place] [address] [place] [phone] Krupa Bates M.D. Angina Pectoris Tobacco User Discharge Disposition: Home or Self Care 05/23/2023 1:30 PM CDT Comprehensive Visit Division of Pulmonary Medicine in [address] [phone] Anum Jacobson, AMEENA, C.N.P., D.N.P. Chronic Obstructive Pulmonary Disease (HCC) (Primary Dx); Shortness Of Breath; Snoring 05/23/2023 8:30 AM CDT Diagnostic Division of Pulmonary Medicine in [place], [place] [address] [place] [phone] Krupa Bates M.D. Chronic Obstructive Pulmonary Disease (HCC) 05/23/2023 [facility] [address] [place] [address] Rupali Tate M.D. Abdominal Aortic Aneurysm Without Rupture Unspecified (HCC) (Primary Dx) 05/22/2023 2:45 PM CDT - 05/22/2023 11:59 PM CDT Hospital Encounter Department of Radiology, [facility], in [place], [place] [address] [place] [phone] Perla Lorenz M.D. Shortness Of Breath Discharge Disposition: Home or Self Care 05/22/2023 2:00 PM CDT Diagnostic Division of Pulmonary Medicine in [place], [place] [address] [place] [phone] Krupa Bates M.D. Chronic Obstructive Pulmonary Disease (HCC) 05/09/2023 8:30 AM HAND DRY CLEANER Virtual Visit Department of Nicotine Dependence, [facility], in [place], [place] [address] [place] [phone] Dino Castillo M.A. Nicotine Dependence Cigarettes With Withdrawal (Primary Dx) 05/04/2023 Clinical Communication [facility], Third Floor [address] [place] [phone] Radha Davidson, R.R.T., L.R.T. Cardiomyopathy (Hospital COPD RT ten day post discharge call) 04/28/2023 Clinical Communication [facility], [facility], Third Floor [address] [place] [phone] Radha Davidson, R.R.T., L.R.T. Post Hospital Follow-up (Hospital Copd RT 24-48Hr post discharge call) 04/26/2023 Clinical Communication Division of Community Internal Medicine, [facility] in [place], [place] [address] [place] [phone] Krupa Bates M.D. 04/26/2023 Clinical Communication Department of Pulmonary Rehabilitation in [place], [place] [address] [place] [phone] Krupa Bates M.D. 04/25/2023 Clinical Communication Department of Cardiovascular Medicine in [place], [place] [address] [place] [phone] Medical Technologist GeneralistZachary M.D. Triage (Rafael Lopez, # [phone]) 04/25/2023 Clinical Communication [facility] [address] [phone] Sanford Villatoro M.D. Post Hospital Follow-up 04/24/2023 1:49 AM HAND DRY CLEANER - 04/26/2023 1:30 PM HAND DRY CLEANER Emergency [facility], [facility], Third Floor [address] [place] [phone] Silvia Harris M.D., M.S. Zach Erickson M.D. Rola Cartwright M.D. Pneumonia (Primary Dx); Shortness Of Breath; Chronic Obstructive Pulmonary Disease Exacerbation (HCC); Nicotine Dependence Cigarettes With Withdrawal; Chronic Obstructive Pulmonary Disease (HCC); Stroke (HCC) Discharge Disposition: Home or Self Care 04/24/2023 Orders Only Division of Pulmonary Medicine in [address] [phone] Dawn Rios M.D. 04/24/2023 Clinical Communication [facility] [address] [place] [phone] Perla Lorenz M.D. Post Hospital Follow-up 04/24/2023 Clinical Communication Department of Nicotine Dependence, [facility] in [place], [place] [address] [place] [phone] Dino Castillo M.A. Follow-up Orders; New Med Request from Last 3 Months Immunizations Name Administration Dates Next Due H1N1 All Forms 12/31/2008 Influenza, Unspecified 12/09/2009 Family History Medical History Relation Name Comments Dementia Brother Mckinley Carrillo Early onset Alzheimer? s Alcohol abuse Father Francisco Lazoakira Suicide Attempts Father Francisco Macariorae Coronary artery disease Maternal Grandfather Gallo Dodd dwin Hyperlipidemia Maternal Grandfather Gallo Banks Skin cancer Maternal Grandfather Gallo Banks Arthritis Mother Tiffanie Cordon Dementia Mother Tiffanie Cordon Diabetes Mother Tiffanie Cordon Hyperlipidemia Mother Tiffanie Cordon Alcohol abuse Paternal Grandfather Francisco macarioroyal Sr Alcohol abuse Paternal Grandmother Marge Carrillo ADD Son 1 Tyrell Keegan Drug abuse Son 1 Tyrell Keegan Psychiatric Son 1 Tyrell Keegan ADD Son 2 Raymundo Keegan Relation Name Status Comments Brother Mckinley Carrillo Father Francisco Carrillo Jr Maternal Grandfather Gallo Banks Mother Tiffanie Cordon Paternal Grandfather Francisco macariomattiakira Sr Paternal Grandmother Marge Carrillo Son 1 Tyrell Keegan Son 2 Raymundo Allison Social History Tobacco Use Types Packs/Day Years Used Date Smoking Tobacco: Former Cigarettes 1 49.1 0 03/14/1974 - 04/24/2023 Smokeless Tobacco: Never Tobacco Cessation:Counseling Given: Not Answered Alcohol Use Standard Drinks/Week Comments Yes 0 (1 standard drink = 0.6 oz pur e alcohol) Very very rarely [facility] Utilities Answer Date Recorded In the past 12 months has e Hand[employer], gas, oil, or water [employer] threatened to shut off services in your [...] Never 07/20/2019 How often do you attend mosque or gnosticism serv ices? Never 07/20/2019 Active Member of [...] Answer Date Recorded PHQ-2 Score 2 04/29/2019 [facility] of Occupat ional [facility] - Occupational Stress Questionnaire Answer Date Recorded [...] your living situation today? I have a [place] place to live 05/17/2023 Education Answer Date Recorded What is the highest level of school you have completed or the highest degree you have received? Associate degree: academic program 02/12/2019 Sex and Gender Information Value Date Recorded Sex Assigned at Female 05/07/2023 12:13 PM HAND DRY CLEANER Gender Identity Female 07/20/2019 7:51 PM CDT Sexual Orientation Straight 07/20/2019 7: 51 PM CDT Last Filed Vital Signs Vital Sign Reading Time Taken Comments Blood Pressure 172/79 04/26/2023 12:20 PM HAND DRY CLEANER Pulse 83 04/26/2023 12:20 PM HAND DRY CLEANER Temperature 36.6 ??C (97.9 ??F) 04/26/2023 12:[address] Respiratory Rate 16 04/26/2023 12:20 PM HAND DRY CLEANER Oxygen Saturation 93% 05/23/2023 1:21 PM CDT Inhaled Oxygen Concentration - - Weight 78 kg (171 lb 15.3 oz) 04/24/2023 9:30 AM HAND DRY CLEANER Height 153.4 cm (5' 0.39) 04/24/2023 4:35 AM CS T Body Mass Index 33.15 04/24/2023 4:35 AM HAND DRY CLEANER Plan of Treatment Upcoming Encounters Date Type Department Care Team (Late st Contact Info) Description 07/05/2023 9:30 AM CDT Appointment Department of Laboratory Medicine and Pathology, [place], [place] [address] [place] [address] Dilcia Ingram D.O. [address] [place] [phone] 07/05/2023 10:30 AM CDT Hospital Encounter Department of Radiology, [facility] in [place], [place] [address] [place] [phone] Dilcia Ingram D.O. [address] [place] [phone] 07/05/2023 1:00 PM CDT Comprehensive Visit Department of Vascular Medicine in [place], [place] [address] [place] [phone] Isaiah Manrique M.D. [address] [place] [phone] Health Maintenance Due Date Last Done Comments CT Colonography 1960 Cologuard 1960 Colonoscopy 1960 Colorectal Cancer Surveillance 1960 HIV Screening 1960 Hepatitis C Screening 1960 Mammogram 1960 Office Visit for Blood Press ure Check / Re-check 1960 Cervical Cancer Screening 06/21/2019 06/20/2016 Zoster Vaccines (2 of 2) 03/31/2020 02/04/2020 COVID-19 Vaccine (4 - 2022-2 4 season) 2022 04/27/2021, 03/24/2020, 02/26/2020 Depression Screening (Annual PHQ-2) 03/06/2023 Creatinine Level (Kidney Fun ction Test) 04/26/2024 04/26/2023, 04/25/2023, 04/24/2023, Additional history exists Potassium Level 04/26/2024 04/26/2023, 04/07, 04/24/2023, Additional history exists Sodium Level 04/26/2024 04/26/2023, 04/07, 04/24/2023, Additional history exists Lung Cancer Screening 05/21/2024 05/22/2023 Fasting Glucose for Diabetes Screening 04/26/2026 04/26/2023, 04/25/2023, 04/24/2023, Additional history exists Lipid (Cholesterol) Screening 04/25/2028, 02/12/2019, 01/05/2019 DTaP,Tdap,and Td Vaccines (3 - Td or Tdap) 02/03/2030 02/04/2020, 09/01/2009 Pneumococcal vaccine (0-64 years) Completed 023 Influenza Vaccine Completed 12/22/2022, , 12/12/2020, Additional history exists Procedures Procedure Name Priority Date/Time Associated Diagnosis [...] METABOLIC PANEL, S/P Routine 04/26/2023 10:43 AM HAND DRY CLEANER CBC WITH DIFFERENTIAL, B Routine 04/26/2023 10:43 AM HAND DRY CLEANER NOCTURNAL OXYGEN STUDY - RT Routine 04/25/2023 4:18 PM HAND DRY CLEANER LIPID PANEL, S STAT 04/25/2023 2:27 PM HAND DRY CLEANER TROPONIN T, 5TH GEN, P STAT 04/25/2023 2:27 PM HAND DRY CLEANER ECG Routine 04/25/2023 9:57 AM HAND DRY CLEANER TROPONIN T, 2H/6H, 5TH GEN, P Timed 04/25/2023 9:50 AM HAND DRY CLEANER MRSA/STAPHYLOCOCCU S AUREUS, NASAL, BY PCR Routine 04/25/2023 8:32 AM HAND DRY CLEANER REMOTE OXIMETRY MONITORING CONT. Routine 04/25/2023 8:02 AM HAND DRY CLEANER TROPONIN T, BASELINE, 5TH GEN, P STAT 04/25/2023 7:11 AM HAND DRY CLEANER BASIC METABOLIC PANEL, S/P Routine 04/25/2023 7:11 AM HAND DRY CLEANER CBC WITH DIFFERENTIAL, B Routine 04/25/2023 7:11 AM HAND DRY CLEANER ECG STAT 04/25/2023 6:44 AM HAND DRY CLEANER REMOTE OXIMETRY MONITORING CONT. Routine 04/24/2023 8:00 PM HAND DRY CLEANER REMOTE OXIMETRY MONITORING CONT. Routine 04/24/2023 8:02 AM HAND DRY CLEANER BACTERIA / HALI CULTURE, BLOOD Routine 04/24/2023 7:50 AM HAND DRY CLEANER BACTERIA / HALI CULTURE, BLOOD Routine 04/24/2023 7:36 AM HAND DRY CLEANER REMOTE OXIMETRY MONITORING CONT. Routine 04/24/2023 6:16 AM HAND DRY CLEANER REMOTE OXIMETRY MONITORING CONT. Routine 04/24/2023 6:16 AM HAND DRY CLEANER REMOTE OXIMETRY MONITORING CONT. Routine 04/24/2023 6:16 AM HAND DRY CLEANER TROPONIN T, 2H/6H, 5TH GEN, P Timed 04/24/2023 4:12 AM HAND DRY CLEANER IFLU A, B, SARS COV-2, PCR, RAPID,V STAT 04/24/2023 2:36 AM HAND DRY CLEANER DX CHEST AP OR PA AND LATERAL 2 VIEWS RAD - Semiurgent (Fast; most ED patients; some inpatients) 04/24/2023 2:19 AM HAND DRY CLEANER D-DIMER, P STAT 04/24/2023 2:10 AM HAND DRY CLEANER NT-PRO B-TYPE NATRIURETIC PEPTIDE (BNP), S STAT 04/24/2023 2:09 AM HAND DRY CLEANER TROPONIN T, BASELINE, 5TH GEN, P STAT 04/24/2023 2:09 AM HAND DRY CLEANER BASIC METABOLIC PANEL, S/P STAT 04/24/2023 2:09 AM HAND DRY CLEANER CBC WITH DIFFERENTIAL, B STAT 04/24/2023 2:09 AM HAND DRY CLEANER ECG STAT 04/24/2023 1:59 AM HAND DRY CLEANER from Last 3 Months Results * ECHO STRESS 2D WITH COLOR AND LIMITED DOPPLER (05/23/2023 4:15 PM CDT) [facility] Ejection Fraction 64 MC CV EIMS Mid-Ascending [...] PostFVC 2.40 L 05/23/2023 6:13 PM CDT [facility] PostFEV1 1.09 L 05/23/2023 6:13 PM CDT [facility] FEV1/FVC POST 45.39 % 05/23/2023 6:13 PM CDT [facility] FEF 25-75 % POST 0.29 L/s 05/23/2023 6:13 PM CDT [facility] PEF POST 3.26 L/s 05/23/2023 6:13 PM CDT [facility] PIF POST 3.04 L/s 05/23/2023 6:13 PM CDT [facility] FEF 50 % FIF 50 POST 11.51 % 05/23/2023 6:13 PM CDT [facility] FET POST 14.52 sec 05/23/2023 6:13 PM CDT [facility] DLCO 10.05 ml/(min*mm Hg) 05/23/2023 6:13 PM CDT [facility] DLCOc 9.96 ml/(min*mm Hg) 05/23/2023 6:13 PM CDT [facility] HB 13.70 g(Hb)/dL 05/23/2023 6:13 PM CDT [facility] VA 4.24 L 05/23/2023 6:13 PM CDT [facility] TLC 5.06 L 05/23/2023 6:13 PM CDT [facility] FRCPLETH PROVBASE 3.39 L 05/23/2023 6:13 PM CDT [facility] RV 2.58 L 05/23/2023 6:13 PM CDT [facility] RV % TLC PRE 50.88 % 05/23/2023 6:13 PM CDT [facility] FVC 1.95 L 05/23/2023 6:13 PM CDT [facility] FEV1 0.89 L 05/23/2023 6:13 PM CDT [facility] FEV1/FVC 45.73 % 05/23/2023 6:13 PM CDT [facility] LLA28-93% 0.24 L/s 05/23/2023 6:13 PM CDT [facility] PEF PRE 3.13 L/s 05/23/2023 6:13 PM CDT [facility] PIF PRE 2.36 L/s 05/23/2023 6:13 PM CDT [facility] FEF 50 % FIF 50 PRE 13.31 % 05/23/2023 6:13 PM CDT [facility] FET PRE 12.10 sec 05/23/2023 6:13 PM CDT [facility] SUBSTANCE POST Albuterol 05/23/2023 6:13 PM CDT [facility] 05/23/2023 8:40 AM CDT Impressions [facility] - 05/23/2023 6:13 PM CDT Abnormal. Moderate [...] vascular process. Perla Lorenz M.D. PFT ORDERABLES [facility] NA * Oxygen Titration (05/23/2023 8:36 AM [...] * Home Overnight Oximetry (05/22/2023) 05/22/2023 Impressions [facility] - 05/24/2023 7:14 AM CDT Overnight oximetry test was performed on room air. ??The patient denied any alcohol or sedative medication on the night of the study and indicated sleep quality was same as usual. ??[place] Sleepiness Scale was 5. ??Baseline oxygen saturation [...] exchange abnormality. Dictated by: Srini Martins M.B., Shen, M.P.H. Physician: Paddy London M.D. [id number] Narrative Procedure Note Paddy London M.D. - 05/24/2023 IMPRESSION: Overnight oximetry test was performed on room air. The patient denied anyalcohol or sedative medication on the night of the study and indicatedsleep quality was same as usual. [place] Sleepiness Scale was 5.Baseline oxygen saturation of [...] M.B., ChRadha, M.P.H. Physician: Paddy London M.D. [id number] Krupa Bates M.D. PFT ORDERABLES [facility] EAP * US AORTA-Outside US Body (05/19/2023 3:55 PM CDT) Narrative [facility] - 05/23/2023 4:17 PM CDT This order has been created and auto-finalized to support the import of outside images. If available, original interpretation can be found on the Media Tab in Chart Review, in Document Viewer, or as an image in QREADS. If a re-interpretation or overread is required please follow defined workflow. ?? Provider Not In System IMG US PROCEDURES [facility] NA * (ABNORMAL) CBC with Differential, Blood (04/26/2023 10:43 AM HAND DRY CLEANER) Only the most recent of3 resultswithin the time period is included. Hemoglobin 13.7 11.6 - 15.0 g/dL 04/26/2023 11:33 AM HAND DRY CLEANER DTL Hematocrit 42.1 35.5 - 44.9 % 04/26/2023 11:33 AM HAND DRY CLEANER DTL Erythrocytes 4.38 3.92 - 5.13 x10(12)/L 04/26/2023 11:33 AM HAND DRY CLEANER DTL MCV 96.1 78.2 - 97.9 fL 04/26/2023 11:33 AM HAND DRY CLEANER DTL RBC Distrib Width 13.4 12.2 - 16.1 % 04/26/2023 11:33 AM HAND DRY CLEANER DTL Platelet Count 327 157 - 371 x10(9)/L 04/26/2023 11:33 AM HAND DRY CLEANER DTL Leukocytes 13.4(H) 3.4 - 9.6 x10(9)/L 04/26/2023 11:33 AM HAND DRY CLEANER DTL Neutrophils 10.36(H) 1.56 - 6.45 x10(9)/L 04/26/2023 11:33 AM HAND DRY CLEANER DHPM Lymphocytes 2.08 0.95 - 3.07 x10(9)/L 04/26/2023 11:33 AM HAND DRY CLEANER DTL Monocytes 0.77 0.26 - 0.81 x10(9)/L 04/26/2023 11:33 AM HAND DRY CLEANER DTL Eosinophils 0.15 0.03 - 0.48 x10(9)/L 04/26/2023 11:33 AM HAND DRY CLEANER DTL Basophils 0.06 0.01 - 0.08 x10(9)/L 04/26/2023 11:33 AM HAND DRY CLEANER DTL Blood (Blood, Venous) 04/26/2023 10:43 AM HAND DRY CLEANER 04/26/2023 11:15 AM HAND DRY CLEANER Krupa Bates M.D. LAB BLOOD ADD-O N [facility] [address] [place] [address], [facility] DTL [facility] [address] [place] [address] [facility] [address] [place] [address] * Basic Metabolic Panel (04/26/2023 10:43 AM HAND DRY CLEANER) Only the most recent of3 resultswithin the time period is included. Pathologist [facility] Potassium, S 4.9 3.6 - 5.2 mmol/L 04/26/2023 12:05 PM HAND DRY CLEANER DTL Sodium, S 137 135 - 145 mmol/L 04/26/2023 12:05 PM HAND DRY CLEANER DTL Chloride, S 99 98 - 107 mmol/L 04/26/2023 12:05 PM HAND DRY CLEANER DTL Bicarbonate, S 28 22 - 29 mmol/L 04/26/2023 12:05 PM HAND DRY CLEANER DTL Anion Gap 10 7 - 15 04/26/2023 12:05 PM HAND DRY CLEANER DTL BUN (Blood Urea Nitrogen), S 19 6 - 21 mg/dL 04/26/2023 12:05 PM HAND DRY CLEANER DTL Creatinine 0.63 0.59 - 1.04 mg/dL 04/26/2023 12:05 PM HAND DRY CLEANER DTL Estimated GFR (eGFR) >90 >=60 mL/min/BSA 04/26/2023 12:05 PM HAND DRY CLEANER DTL Comment: Estimated GFR calculated using the 2020 CKD_EPI creatinine equation. Calcium, Total, S 9.3 8.8 - 10.2 mg/dL 04/26/2023 12:05 PM HAND DRY CLEANER DTL Glucose, S 95 70 - 140 mg/dL 04/26/2023 12:05 PM HAND DRY CLEANER DTL Blood (Blood, Venous) 04/26/2023 10:43 AM HAND DRY CLEANER 04/26/2023 11:31 AM HAND DRY CLEANER Krupa Bates M.D. LAB BLOOD ADD-O N [facility] [address] [place] [address], [facility] [address] [place] [address] * Lipid Panel (04/25/2023 2:27 PM HAND DRY CLEANER) Pathologist [facility] Triglycerides 81 mg/dL 04/25/2023 3:29 PM HAND DRY CLEANER DTL Comment: ----REFERENCE VALUE---- Normal: <150 mg/dL Borderline High: 150-199 mg/dL High: 200-499 mg/dL Very High: > or =500 mg/dL Cholesterol, Total 153 mg/dL 2023 3:29 PM HAND DRY CLEANER DTL Comment: ----REFERENCE VALUE---- Desirable: < 200 mg/dL Borderline High: 200 - 239 mg/dL High: > or = 240 mg/dL Cholesterol, LDL, Calculated 70 mg/dL 04/25/2023 3:29 PM HAND DRY CLEANER DTL Comment: ----REFERENCE VALUE---- Desirable: <100 mg/dL Above Desirable: 100-129 mg/dL Borderline High: 130-159 mg/dL High: 160-189 mg/dL Very High: >=190 mg/dL ----ADDITIONAL INFORMATION---- LDL cholesterol calculated using the Cee/NIH equation. Cholesterol, HDL, S 68 >=50 mg/dL 04/25/2023 3:29 PM HAND DRY CLEANER DTL Cholesterol, Non-HDL, Calculated 85 mg/dL 04/25/2023 3:29 PM HAND DRY CLEANER DTL Comment: ----REFERENCE VALUE---- Desirable: <130 mg/dL Above Desirable: 130-159 mg/dL Borderline High: 160-189 mg/dL High: 190-219 mg/dL Very High: > or =220 mg/dL Fasting (8 HR or more) No 04/25/2023 3:08 PM HAND DRY CLEANER DTL Blood (Blood, Venous) 04/25/2023 2:27 PM HAND DRY CLEANER 04/25/2023 3:08 PM HAND DRY CLEANER Krupa Bates M.D. LAB BLOOD ADD-O N Performing Organization Address [facility] Co de Phone Number [facility] [address] [place] [address], [facility] [address] [place] [address] * Troponin T, 5th Generation (04/25/2023 2:27 PM HAND DRY CLEANER) Troponin T, 5th gen 7 <=10 ng/L 04/25/2023 2:50 PM HAND DRY CLEANER STMA Blood (Blood, Venous) 04/25/2023 2:27 PM HAND DRY CLEANER 04/25/2023 2:34 PM HAND DRY CLEANER Krupa Bates M.D. LAB BLOOD ADD-O N Performing Organization Address City/[facility] de Phone Number [facility] [address] [place] [address], [facility] STMA [facility] [address] [place] [address] * ECG 12 Lead (04/25/2023 9:57 AM HAND DRY CLEANER) Only the most recent of3 resultswithin the time period is included. Ventricular Rate ECG/Min 90 BPM MUSE [place] Interval 136 ms MUSE QRSD Interval 84 ms MUSE QT Interval 346 ms MUSE QTC Interval 423 ms MUSE P [place] 69 degrees MUSE R [place] 70 degrees MUSE T Wave [place] 58 degrees MUSE 04/25/2023 9:57 AM HAND DRY CLEANER 04/25/2023 10:00 AM HAND DRY CLEANER Impressions MUSE - 04/25/2023 10:00 AM HAND DRY CLEANER Sinus rhythm Premature ventricular complexes Otherwise normal [...] GAVIN Chatterjee Krupa Bates M.D. ECG ORDERABLES Performing Organization Address [facility] Co de Phone Number MUSE NA * Troponin T, 2h/6h, 5th Gen (04/25/2023 9:50 AM HAND DRY CLEANER) Only the most recent of2 resultswithin the time period is included. Troponin T, 2 hr, 5th gen 8 <=10 ng/L 04/25/2023 11:03 AM HAND DRY CLEANER DTL 2H Delta 1 ng/L 04/25/2023 11:03 AM HAND DRY CLEANER DTL 2H Delta Interp Not Changing 04/25/2023 11:03 AM HAND DRY CLEANER DTL Troponin T, 6 hr, 5th gen CANCELED ng/L 04/25/2023 11:03 AM HAND DRY CLEANER DTL Comment:Result canceled by t he ancillary. 6H Delta CANCELED ng/L 04/25/2023 11:03 AM HAND DRY CLEANER STMA Comment:Result canceled by t angie ancillary. Blood (Blood, Venous) 04/25/2023 9:50 AM HAND DRY CLEANER 04/25/2023 10:09 AM HAND DRY CLEANER Narrative [facility] - 04/25/2023 11:03 AM HAND DRY CLEANER Specimen Information: Specimen ID: [id number] Specimen Type: Blood Specimen Collection Start Date: 04/25/2023 ??9:50 AM Specimen Received Date: 04/25/2023 10:09 AM Specimen ID: [id number] Specimen Type: Blood Elgin Sherwood M.D., Ph.D. LAB BLO OD TROPONIN Performing Organization Address City/[facility] Co de Phone Number [facility] [address] [place] [address] STMA [facility] [address] [place] [address] * Staph aureus / MRSA, Nasal, PCR (04/25/2023 8:32 AM HAND DRY CLEANER) Pathologist [facility] Staphylococcus aureus, PCR Negative Negative 04/25/2023 11:59 AM HAND DRY CLEANER DTL MRSA, PCR Negative Negative 04/25/2023 11:59 AM HAND DRY CLEANER DTL Swab (Nares) 04/25/2023 8:32 AM HAND DRY CLEANER 04/25/2023 10:33 AM HAND DRY CLEANER Krupa Bates M.D. LAB MICROBIOLOG Y - GENERAL ORDERABLES Performing Organization Address [facility]/ZIP Co [place] [address] * Troponin T, Baseline, 5th gen (04/25/2023 7:11 AM HAND DRY CLEANER) Only the most recent of2 resultswithin the time period is included. Pathologist [facility] Troponin T, Baseline, 5th gen 7 <=10 ng/L 04/25/2023 7:37 AM HAND DRY CLEANER STMA Blood (Blood, Venous) 04/25/2023 7:11 AM HAND DRY CLEANER 04/25/2023 7:19 AM HAND DRY CLEANER Elgin Sherwood M.D., Ph.D. LAB BLO OD TROPONIN Performing Organization Address City/[facility]/ZIP Co de Phone Number [facility] [address] [place] [address] * Bacteria / Hali Culture, Blood #2 (04/24/2023 7:50 AM HAND DRY CLEANER) Only the most recent of2 resultswithin the time period is included. [facility] Bacteria/Deborah da Culture, Blood No growth after 5 days of incubation. 04/29/2023 10:02 AM HAND DRY CLEANER DTL Blood (Blood, Peripheral Draw) 04/24/2023 7:50 AM HAND DRY CLEANER 04/24/2023 9:13 AM HAND DRY CLEANER Comment:Specimen Source Site : Blood Aurea García M.D. LAB ALEJANDRO ROBIOLOGY - GENERAL ORDERABLES Performing Organization Address City/[facility] Co de Phone Number [facility] [address] [place] [address], [facility] DTL [facility] [address] [place] [address] * Influenza A/B, SARS CoV-2, PCR, Rapid Symptomatic (04/24/2023 2:36 AM HAND DRY CLEANER) [facility] Influenza A, PCR, Rapid, V Negative Negative 04/24/2023 3:06 AM HAND DRY CLEANER [facility] Influenza B, PCR, Rapid, V Negative Negative 04/24/2023 3:06 AM HAND DRY CLEANER [facility] SARS CoV-2, PCR, Rapid, V Undetected Undetected 04/24/2023 3:06 AM HAND DRY CLEANER [facility] Comment: ----ADDITIONAL INFORMATION---- This RT-PCR test was performed using the [employer] SARS-CoV-2 and Influenza A/B Reagent assay from [employer], which has received Emergency Use Authorization(EUA) by the U.S. Food and Drug Administration. Fact sheets for this Emergency Use Authorization (EUA) assay can be found at the following links: For Healthcare Providers: https://www.Mplife.com.gov/media/104471/download For Patients: https://www.fda.gov/media/307382/download Infl A/B, SARS CoV-2, PCR, Source Swab, Nasopharynx 04/24/2023 2:41 AM HAND DRY CLEANER [facility] Swab (Nasopharynx) 04/24/2023 2:36 AM HAND DRY CLEANER 04/24/2023 2:41 AM HAND DRY CLEANER Silvia Harris M.D., M.S. LAB MICROBIO LOGY - GENERAL ORDERABLES [facility] [address] [place] [address], [facility] [address] [place] [address] * DX Chest AP or PA and Lateral 2 Views (04/24/2023 2:19 AM HAND DRY CLEANER) Anatomical Region Laterality Modality Chest, Thoracic RST LOS, Tho racic ARZ LOS, Thoracic FLA LOS N/A Digital Radiography Impressions 04/24/2023 2:39 AM HAND DRY CLEANER Since 12/24/2018, new hazy ill-defined opacities throughout the bilateral lung bases which could be seen in the setting of developing infectious/inflammatory process. Remainder is not significantly changed. Vascular calcifications. Chest is otherwise negative. Narrative 04/24/2023 2:39 AM HAND DRY CLEANER EXAM: ??DX CHEST AP OR PA AND LATERAL 2 VIEWS Procedure Note Suzi Anderson M.D. - 04/24/2023 EXAM: DX CHEST AP OR PA AND LATERAL 2 VIEWS IMPRESSION: Since 12/24/2018, new hazy ill-defined opacities throughout the bilaterallung bases which could be seen in the setting of developinginfectious/inflammatory process. Remainder is not significantly changed.Vascular calcifications. Chest is otherwise negative. Silvia Harris M.D. MJustinS. IMG DIAGNOST IC IMAGING PROCEDURES * D-Dimer (04/24/2023 2:10 AM HAND DRY CLEANER) D-Dimer, P 323 <=500 ng/mL FEU 04/24/2023 2:22 AM HAND DRY CLEANER [facility] Comment: ----ADDITIONAL INFORMATION---- D-dimer values less than or equal to 500 ng/mL fibrinogen equivalent units (FEU) may be used in conjunction with clinical pre-test probability to exclude deep vein thrombosis (DVT) and/or pulmonary embolism (PE). Blood (Blood, Venous) 04/24/2023 2:10 AM HAND DRY CLEANER 04/24/2023 2:14 AM HAND DRY CLEANER Silvia Harris M.D., MJustinSJustin LAB BLOOD AD D-ON Performing Organization Address [facility] [place] [address] * NT-Pro B-Type Natriuretic Peptide (BNP) (04/24/2023 2:09 AM HAND DRY CLEANER) Pathologist [facility] NT-Pro BNP 94 <=226 pg/mL 04/24/2023 2:50 AM HAND DRY CLEANER [facility] Comment: NT-proBNP values less than 300 [...] failure. Blood (Blood, Venous) 04/24/2023 2:09 AM HAND DRY CLEANER 04/24/2023 2:14 AM HAND DRY CLEANER Silvia Harris M.D. MJustinSJustin LAB BLOOD AD D-ON Performing Organization Address City/[facility] Co de Phone Number [facility] [address] [place] [address], [place] STMA [facility] [address] [place] [address] from Last 3 Months Advance Directives For more information, please contact: [phone] * Full Code (Latest Code Status on File) Date Activated Date Inactivated Comments 04/24/2023 5:03 AM 04/26/2023 3:35 PM Question Answer Comments Full Code: Discussed * Full Code Date Activated Date Inactivated Comments 01/04/2019 11:20 PM 01/05/2019 7:41 PM Question Answer Comments Full Code: Discussed Care Teams Maintenance And Engineering Manager Relationship Specialty Start Date End Date Elsewhere, Pcp PCP - General Internal Medicine 04/24/23
--- OUTSIDE RECORDS SUMMARY | 2023-06-29 11:38 | XMS_ITS | Encounter Summary ---
Author Name Unknown Organization [facility] Address [address] [place] [address] Care Team Providers Care Cigarette Catcher Name Role Phone Elsewhere, Pcp Primary Care Provider Unavailabl e Reason for Visit * Reason Onset Date Comments Appt Request 06/09/2023 Encounter Details Date Type Department Care Team (Late st Contact Info) Description 06/09/2023 Clinical Communication Department of Vascular Medicine in [place], [place] [address] [place] [address] Isaiah Manrique M.D. [address] [place] [phone] Appt Request Social History Tobacco Use Types Packs/Day Years Used Date Smoking Tobacco: Former Cigarettes 1 49.1 0 03/14/1974 - 04/24/2023 Smokeless Tobacco: Never Alcohol Use Standard Drinks/Week Comments Yes 0 (1 standard drink = 0.6 oz pur e alcohol) Very very rarely [facility] Utilities Answer Date Recorded In the past 12 months has e electric, gas, oil, or water company threatened [...] How often do you attend denominational or taoism serv ices? Never 07/20/2019 Active Member of [...] Answer Date Recorded PHQ-2 Score 2 04/29/2019 [facility] of Occupat ional Health - [...] your living situation today? I have a [facility] place to live 05/17/2023 Education Answer Date Recorded What is the highest level of school you have completed or the highest degree you have received? Associate degree: academic program 02/12/2019 Sex and Gender Information Value Date Recorded Sex Assigned at Female 05/07/2023 12:13 PM TRANSMISSION SUPERVISOR Gender Identity Female 07/20/2019 7:51 PM CDT Sexual Orientation Straight 07/20/2019 7: 51 PM CDT documented as of this encounter Plan of Treatment Upcoming Encounters Date Type Department Care Team (Late st Contact Info) Description 07/05/2023 9:30 AM CDT Appointment Department of Laboratory Medicine and Pathology, [facility] in [place], [place] [address] [place] [address] Dilcia Ingram D.O. [address] [place] [phone] 07/05/2023 10:30 AM CDT Hospital Encounter Department of Radiology, [facility], in [place], [place] [address] [place] [address] Dilcia Ingram D.O. [address] [place] [phone] 07/05/2023 1:00 PM CDT Comprehensive Visit Department of Vascular Medicine in [place], [place] [address] [place] [address] Isaiah Manrique M.D. [address] [place] [address] documented as of this encounter Visit Diagnoses Not on filedocumented in this encounter Additional Health Concerns Assessment Noted Time PHQ-9 Depression Total Score: 6 04/29/19 20 12:40 PM TRANSMISSION SUPERVISOR documented as of this encounter Care Teams Cigarette Catcher Relationship Specialty Start Date End Date Elsewhere, Pcp PCP - General Internal Medicine 04/24/23 documented as of this encounter
--- OUTSIDE RECORDS SUMMARY | 2023-06-29 11:38 | XMS_ITS | Encounter Summary ---
Author Name Unknown Organization [facility] Address [address] [place] [address] Care Team Providers Care Library Media Technician Name Role Phone Elsewhere, Pcp Primary Care Provider Unavailabl e Reason for Referral * Outpatient (Routine) - Closed Specialty Diagnoses / Procedures Referred By Carey escobar Referred To Contact Nicotine Dependence Dino Castillo M.A. [facility] Referral ID Status Reason Start Date Expiration Date Visits Re quested Visits Authorized [id number] Closed 05/12/2023 11/10/2024 1 1 Scheduling Instructions Any date and time for one month follow up please. Thank you! NG OVEN TENDER Reason for Visit * Reason Comments Nicotine Dependence * Outpatient (Routine) - Closed Specialty Diagnoses / Procedures Referred By Carey escobar Referred To Contact Nicotine Dependence Dino Castillo M.A. [facility] Referral ID Status Reason Start Date Expiration Date Visits Re quested Visits Authorized [id number] Closed 04/24/2023 10/23/2024 1 1 Encounter Details Date Type Department Care Team (Late st Contact Info) Description 05/09/2023 8:30 AM CURING OVEN TENDER Virtual Visit Department of Nicotine Dependence, [facility], in [place], [place] [address] [place] [address] Dino Castillo M.A. Nicotine Dependence Cigarettes With Withdrawal (Primary Dx) Social History Tobacco Use Types Packs/Day Years Used Date Smoking Tobacco: Every Day Cigarettes 1 55 Started: 03/06/1975 Smokeless Tobacco: Never Alcohol Use Standard Drinks/Week Comments Yes 0 (1 standard drink = 0.6 oz pur e alcohol) [facility] Utilities Answer Date Recorded In the [...] Never 07/20/2019 How often do you attend christianity or restorationism serv ices? Never 07/20/2019 Active Member of [...] Answer Date Recorded PHQ-2 Score 2 04/29/2019 [facility] of Occupat ional Health - Occupational Stress [...] your living situation today? I have a [facility] to live 05/17/2023 Education Answer Date Recorded What is the highest level of school you have completed or the highest degree you have received? Associate degree: academic program 02/12/2019 Sex and Gender Information Value Date Recorded Sex Assigned at Female 05/07/2023 12:13 PM CURING OVEN TENDER Gender Identity Female 07/20/2019 7:51 PM CDT Sexual Orientation Straight 07/20/2019 7: 51 PM CDT documented as of this encounter Progress Notes * Dino Castillo M.A. - 05/09/2023 8:30 AM CST OBJECTIVE Genevieve Allison attended a phone follow-up appointment regarding her tobacco use. Medications Patient reports that she is currently using Nicotine patch: 21 mg no tobacco cessation medications at this time. ASSESSMENT Patient has been tobacco free since being admitted to the hospital on 04/24. She continues to be motivated to be tobacco free. We dicussed cognitive and behavioral strategies to cope with cravings andwithdrawal symptoms.to help reduce tobacco use and to cope with cravings and withdrawal symptoms. Counselor provided patient with affirmations to confirm progress. PLAN Follow up in a month The patient was encouraged to contact the nicotine dependence center for questions or concerns. #1 Tobacco Use Disorder 8 minutes was spent on tobacco counseling. documented in this encounter Plan of Treatment Upcoming Encounters Date Type Department Care Team (Late st Contact Info) Description 07/05/2023 9:30 AM CDT Appointment Department of Laboratory Medicine and Pathology, [facility] in [place], [place] [address] [place] [phone] Dilcia Ingram D.O. [address] [place] [phone] 07/05/2023 10:30 AM CDT Hospital Encounter Department of Radiology, [place], [place] [address] [place] [address] Dilcia Ingram D.O. [address] [place] [phone] 07/05/2023 1:00 PM CDT Comprehensive Visit Department of Vascular Medicine in [place], [place] [address] [place] [phone] Isaiah Manrique M.D. [address] [place] [phone] Scheduled Referrals Name Type Priority Associated Diagnoses Order Schedule Nicotine Dependence office visit (clinic) Outpatient Referral Routine Expected: 06/12/2023 (Approximate), Expires: 08/11/2024 documented as of this encounter Visit Diagnoses Diagnosis Nicotine Dependence Cigarettes With Withdrawal- Primary documented in this encounter Additional Health Concerns Assessment Noted Time PHQ-9 Depression Total Score: 6 04/29/19 20 12:40 PM CURING OVEN TENDER documented as of this encounter Care Teams Library Media Technician Relationship Specialty Start Date End Date Elsewhere, Pcp PCP - General Internal Medicine 04/24/23 documented as of this encounter
--- OUTSIDE RECORDS SUMMARY | 2023-06-29 11:38 | XMS_ITS | Encounter Summary ---
Author Name Unknown Organization [facility] Address [address] [place] [address] Care Team Providers Care Picking Tech Name Role Phone Elsewhere, Pcp Primary Care Provider Unavailabl e Reason for Visit * Outpatient (Routine) - Closed Specialty Diagnoses / Procedures Referred By Contact Referred To Contact Cardiovascular Diseases / Cardiovascular Disease Diagnoses Angina Pectoris Tobacco User Krupa Btaes M.D. [address] [place] [phone] [facility] Referral ID Status Reason Start Date Expiration Date Visits Re quested Visits Authorized [id number] Closed 04/25/2023 10/24/2024 1 1 Encounter Details Date Type Department Care Team (Latest Contact Info) Description 05/24/2023 8:15 AM CDT Comprehensive Visit Department of Cardiovascular Medicine in [place], [place] [address] [place] [phone] Chuck Townsend M.D., Ph.D. [address] [place] [phone] Angina Pectoris Tobacco User Social History Tobacco Use Types Packs/Day Years Used Date Smoking Tobacco: Former Cigarettes 1 49.1 0 03/14/1974 - 04/24/2023 Smokeless Tobacco: Never Tobacco Cessation:Counseling Given: Not Answered Alcohol Use Standard Drinks/Week Comments Yes 0 (1 standard drink = 0.6 oz pur e alcohol) Very very rarely [facility] Utilities Answer Date Recorded In the past 12 months has th e electric, gas, oil, or water company [...] Never 07/20/2019 How often do you attend yarsanism or temple serv ices? Never 07/20/2019 Active Member of [...] Answer Date Recorded PHQ-2 Score 2 04/29/2019 [facility] of Occupat ional Health - Occupational Stress [...] your living situation today? I have a [facility] place to live 05/17/2023 Education Answer Date Recorded What is the highest level of school you have completed or the highest degree you have received? Associate degree: academic program 02/12/2019 Sex and Gender Information Value Date Recorded Sex Assigned at Female 05/07/2023 12:13 PM PASSENGER TRAIN BRAKER Gender Identity Female 07/20/2019 7:51 PM CDT Sexual Orientation Straight 07/20/2019 7: 51 PM CDT documented as of this encounter H&P Notes * Chuck Townsend M.D., Ph.D. - 05/24/2023 8:15 AM CDT CARDIOLOGY CLINIC NOTE HISTORY OF PRESENT ILLNESS Ms. Allison is a 62 y.o. female who presents to outpatient Cardiology Clinic today for evaluation and management of chest pain concerning for angina. Relevant comorbid medical conditions include COPD, dense coronary calcifications on imaging, possible hypertension, and roughly 50 pack year smokinghistory with smoking cessation about one month ago. The patient has been referred by Dr. Krupa Bates. Symptom onset initially occurred several years ago, when she had an episode of chest pain while at work. She had a subsequent abnormal stress test but was never able to complete a coronary CTA due toCOVID logistical complications; see cardiovascular history for more details. She was then mostly symptom-free until she had an episode while hospitalized in April 2023, although she does report maybe 2 episodes over the past 2 years of mild chest pain that responded to nitroglycerin. While hospitalized last month with a COPD exacerbation, she developed sudden onset left chest heaviness with radiation to the left arm after eating breakfast. She had not just used any inhalers or nebulizers. She reports she had similar symptoms yesterday during her dobutamine stress echo. In terms of exercise/physical activity, she does not have a formal exercise routine. 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 She gets short of breath when ascending 1-2 flights of stairs (but can withoutstopping); she does not have any chest pain with this level of exertion. She quit smoking about a month ago; she has gained 15 pounds since she quit but otherwise reports quitting has gone well. She is using patches for nicotine replacement. BP has been labile, but was 117/55 at rest before her stress echo yesterday. Workup prior to appointment today has been notable for a negative dobutamine echocardiogram stress test and significant coronary calcification on CT imaging. A full summary of pre-visit testing is available below. CARDIOVASCULAR HISTORY Chest pain concerning for angina Abnormal stress test in 2021; the report and images are not available to me but a note from that time does note A small area of mild reversibility in the mid and apical inferior wall with a normal ejection fraction; the note states that patient elected to pursue coronary CTA after this but I cannot see those results. OTHER PAST MEDICAL HISTORY COPD Tobacco use, roughly 50 pack year history, quit one month ago REVIEW OF SYSTEMS Otherwise negative except as per HPI. OUTPATIENT MEDICATIONS Current Outpatient Medications Medication Instructions acetaminophen (TYLENOL) 1,000 mg, oral, As needed albuterol 90 mcg/actuation inhaler 2 puffs, inhalation, Every 4 hours PRN amLODIPine (NORVASC) 5 mg, oral, Daily aspirin, buffered, 325 mg tablet 325 mg, oral, Daily atorvastatin (LIPITOR) 80 mg, oral, Daily at bedtime formoterol (PERFOROMIST) 20 mcg, nebulization, 2 times daily ibuprofen (ADVIL,MOTRIN) 400 mg, oral, As needed nitroglycerin (NITROSTAT) 0.4 mg, sublingual, Every 5 min PRN revefenacin (YUPELRI) 0.175 mg, nebulization, Daily tiotropium-olodateroL (Stiolto Respimat) 2.5-2.5 mcg/actuation inhaler 2 puffs, inhalation, Daily valsartan (DIOVAN) 80 mg, oral, Daily at bedtime SOCIAL HISTORY Roughly 50 pack-year smoker, quit 1 month ago FAMILY HISTORY Negative for premature coronary disease in parents and siblings. Maternal grandfather had CABG x4 and had recurrent Vtach Multiple first-degree relatives on cholesterol-lowering medications ALLERGIES Allergies Allergen Reactions Penicillins Edema (Reselect Reaction) Penicillin injectables ONLY Sulfa (Sulfonamide Antibiotics) Hives (Reselect Reaction) PHYSICAL EXAMINATION There were no vitals taken for this visit. Wt Readings from Last 1 Encounters: 04/24/23 78 kg There is no height or weight on file to calculate BMI. Gen: In no acute distress. HEENT: Pupils equal and round. No conjunctival injection or icterus. No corneal arcus or xanthelasma. Vision grossly intact. Good oral hygiene without visible lesions. Neck supple, non-tender withoutlymphadenopathy, no masses or thyromegaly. Heart: Regular rate, regular rhythm. No murmur. No rub or gallop. Nondisplaced apical impulse. No carotid bruits. JVP normal without significant elevation. Lungs: breathing on room air. Breath sounds clear and symmetric with good air entry over all lung martinez. No crackles, no wheezing, no rhonchi. Abdomen: Soft and nontender. Extremities: No significant pitting edema of bilateral lower extremities. Peripheral pulses symmetric and readily palpable. Extremities are warm and well perfused. No noted varicosities. Neurological: Alert and fully oriented. No obvious focal deficits. Skin: Skin normal color, texture and turgor with no lesions or eruptions. DIAGNOSTICS 12-lead ECG Last performed: 04/25/23 Results: Sinus rhythm with PVCs but otherwise normal; notably I do not see any observable T-wave inversions Cardiac Stress Test Last performed: 05/23/23 Modality: Dobutamine stress echocardiogram Results: Negative for ischemia on both ECG and echo although lateral wall endocardial definition onechocardiogram was somewhat limited. Report does note T-wave inversions in aVL, V1, and V2 at rest. CT Chest Last performed: 05/22/2023 Contrast: no Result: Lungs show severe emphysema, and severe coronary artery calcification is also apparent Lab Results Component Value Date CHOL 153 04/25/2023 TRIG 81 04/25/2023 HDL 68 04/25/2023 LDLCALC 70 04/25/2023 ASSESSMENT / PLAN ASSESSMENT / PLAN Ms. Allison is a 62 y.o. female with a PMH of COPD, hypertension, and coronary artery disease without history of ischemic event who presented for follow-up of chest pain episode concerning for angina. #1 Angina Pectoris Tobacco User At this time, despite negative stress test, I do think her chest pain may represent angina given association with stress/exertion and typical character, as well as her dense coronary calcifications on CT imaging. For additional testing, the primary thing I would consider is an anatomic survey of her coronary arteries to rule out a flow-limiting blockage. Given negative stress test, however, my suspicion for a hemodynamically significant lesion is low enough that I think this would be low-yield,and even if notable stenosis is seen it is not clear this would merit intervention. This could potentially change in the future, however, if she develops increased symptoms concerningfor angina. She is planning to undertake pulmonary rehabilitation in the setting of significant COPD/emphysema; if this is successful and she has improvement in her exertional dyspnea that is presumed secondary to her lung disease, she may reach a point where her exertion is limited primarily by angina, in which case we would have to consider angiography and possible intervention. As far as management, the primary thing is complete smoking cessation, which she has reportedly achieved. In terms of risk factor management, LDL was at 70 during recent hospitalization before increase in statin dose; I would continue this with a target of less than 70. BP also appears well managedafter initiation of antihypertensive therapy during her recent hospitalization. Finally, her stress echo report notes resting T-wave inversions that were not present on her ECGs in the hospital last month. I do not believe she had a anderson ischemic event between now and then, butI would like to obtain a formal 12 lead ECG to confirm if these are present. This would not change my thinking at this time, but if they are present now I would like to record them so their chronicity is known if they are seen at a future evaluation. 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 Phoenix, who agrees with the assessment and plan as detailed above. I spent a total of 50 minutes reviewing the patient's medical records and diagnostic tests, seeing the patient, speaking with the nursing team, placing the orders noted above, coordinating care, and/or documenting in the record. documented in this encounter Consult Notes * Yamilka Phoenix M.D. - 05/24/2023 8:15 AM CDT CHIEF COMPLAINT / REASON FOR VISIT Coronary artery disease HISTORY OF PRESENT ILLNESS I visited with the patient and have discussed management plans with Dr. Townsend. Please refer to their note for complete details on the HPI, PMH, ROS, social history, family history and current medications. I concur with the objective and subjective findings as documented in their note except as noted below. In addition, we discussed the impression/report/plan as is documented in both of our notes. Briefly, Ms. Genevieve Allison is a 62 y.o. woman with known coronary artery disease, a heavy smoking history and prior stroke and positive stress test. Her symptoms are certainly consistent with angina but there are no high-risk features in terms of either her symptoms or her recent stress test. She is planning on initiating a pulmonary rehabilitation program. DIAGNOSTIC REVIEW: I have reviewed the patient's current laboratory, imaging, and other diagnostic studies. ASSESSMENT / PLAN #1 Stable coronary artery disease with angina At this point, would aggressively manage risks (she has stopped smoking) and manage her symptoms medically. Should she develop limiting angina during her pulmonary rehabilitation, it would be quite reasonable to proceed with coronary angiography to define anatomy and consider intervention. For now we will continue medical therapy as outlined by Dr. Townsend. Yamilka Phoenix M.D. 05/24/2023 documented in this encounter Plan of Treatment Upcoming Encounters Date Type Department Care Team (Late st Contact Info) Description 07/05/2023 9:30 AM CDT Appointment Department of Laboratory Medicine and Pathology, [facility] in [place], [place] [address] [place] [phone] Dilcia Ingram D.O. [address] [place] [phone] 07/05/2023 10:30 AM CDT Hospital Encounter Department of Radiology, [facility] in [place], [place] [address] [place] [phone] Dilcia Ingram D.O. [address] [place] [phone] 07/05/2023 1:00 PM CDT Comprehensive Visit Department of Vascular Medicine in [place], [place] [address] [place] [phone] Isaiah Manrique M.D. [address] [place] [phone] documented as of this encounter Visit Diagnoses Diagnosis Angina Pectoris Tobacco User documented in this encounter Additional Health Concerns Assessment Noted Time PHQ-9 Depression Total Score: 6 04/29/19 20 12:40 PM PASSENGER TRAIN BRAKER documented as of this encounter Care Teams Picking Tech Relationship Specialty Start Date End Date Elsewhere, Pcp PCP - General Internal Medicine 04/24/23 documented as of this encounter
--- OUTSIDE RECORDS SUMMARY | 2023-06-29 11:38 | XMS_ITS | Encounter Summary ---
Author Name Unknown Organization [facility] Address [address] [place] [address] Care Team Providers Care Transportation Inspector Name Role Phone Elsewhere, Pcp Primary Care Provider Unavailabl e Encounter Details Date Type Department Care Team (Late st Contact Info) Description 05/22/2023 2:00 PM CDT Diagnostic Division of Pulmonary Medicine in [place], [place] [address] [place] [phone] Krupa Bates M.D. [address] [place] [phone] Chronic Obstructive Pulmonary Disease (HCC) Social History Tobacco Use Types Packs/Day Years Used Date Smoking Tobacco: Every Day Cigarettes 1 55 Started: [birth year]1975 Smokeless Tobacco: Never Alcohol Use Standard Drinks/Week Comments Yes 0 (1 standard drink = 0.6 oz pur e alcohol) [facility] Utilities Answer Date Recorded In the past [...] Never 07/20/2019 How often do you attend tenriism or anabaptist serv ices? Never 07/20/2019 Active Member of [...] Answer Date Recorded PHQ-2 Score 2 04/29/2019 [facility] of Occupat ional Health - Occupational Stress [...] your living situation today? I have a [facility] place to live 05/17/2023 Education Answer Date Recorded What is the highest level of school you have completed or the highest degree you have received? 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 [address] [place] [phone] 07/05/2023 10:30 AM CDT Hospital Encounter Department of Radiology, [facility], in [place], [place] [address] [place] [phone] Dilcia Ingram D.O. [address] [place] [phone] 07/05/2023 1:00 PM CDT Comprehensive Visit Department of Vascular Medicine in [place], [place] [address] [place] [phone] Isaiah Manrique M.D. [address] [place] [phone] documented as of this encounter Procedures Procedure Name Priority Date/Time Associated Diagnosis Comments PUL HOME OVERNIGHT OXIMETRY Routine 05/22/2023 Chronic Obstructive Pulmonary Disease (HCC) documented in this encounter Results * Home Overnight Oximetry (05/22/2023) 05/22/2023 [facility]ressions [facility] - 05/24/2023 7:14 AM CDT Overnight oximetry test was performed on room air. ??The patient denied any alcohol or sedative medication on the night of the study and indicated sleep quality was same as usual. ??[place] Sleepiness Scale was 5. ??Baseline oxygen saturation [...] M.B., Ch.B., M.P.H. Physician: Paddy London M.D. [id number] Narrative Procedure Note Paddy London M.D. - 05/24/2023 IMPRESSION: Overnight oximetry test was performed on room air. The patient denied anyalcohol or sedative medication on the night of the study and indicatedsleep quality was same as usual. [place] Sleepiness Scale was 5.Baseline oxygen saturation of [...] M.B., Ch.B., M.P.H. Physician: Paddy London M.D. [id number] Krupa Bates M.D. PFT ORDERABLES NAOMI DOUGLAS EAP documented in this encounter Visit Diagnoses Diagnosis Chronic Obstructive Pulmonary Disease (HCC) documented in this encounter Additional Health Concerns Assessment Noted Time PHQ-9 Depression Total Score: 6 04/29/19 20 12:40 PM MANUFACTURING PROJECT ENGINEER documented as of this encounter Care Teams Transportation Inspector Relationship Specialty Start Date End Date Elsewhere, Pcp PCP - General Internal Medicine 04/24/23 documented as of this encounter
--- OUTSIDE RECORDS SUMMARY | 2023-06-29 11:38 | XMS_ITS | Encounter Summary ---
Author Name Unknown Organization [facility] Address [address] [place] [address] Care Team Providers Care Marine Resource Economist Name Role Phone Elsewhere, Pcp Primary Care Provider Unavailabl e Reason for Referral * Outpatient (Routine) - Authorized Specialty Diagnoses / Procedures Referred By Contac t Referred To Contact Pulmonary Medicine Anum Jacobson APRN, C.N.P., D.N.P. [address] [place] [address] [facility] Referral ID Status Reason Start Date Expiration Date V isits Requested Visits Authorized [id number] Authorized 05/23/2023 11/21/2024 1 1 * Outpatient (Routine) - Authorized Specialty Diagnoses / Procedures Referred By Contac t Referred To Contact Sleep Medicine Diagnoses Chronic Obstructive Pulmonary Disease (HCC) Snoring Anum Jacobson APRN, C.N.P., D.N.P. [address] [place] [phone] [facility] Referral ID Status Reason Start Date Expiration Date Visits Requested Visits Authorized [id number] Authorized Specialty Services Required 05/23/2023 11/21/2024 1 1 Reason for Visit * Outpatient (Routine) - Closed Specialty Diagnoses / Procedures Referred By Carey escobar Referred To Contact Pulmonary Medicine Diagnoses Shortness Of Breath Perla Lorenz M.D. [address] [place] [address] [facility] Referral ID Status Reason Start Date Expiration Date Visits Re quested Visits Authorized [id number] Closed 04/24/2023 10/23/2024 1 1 Encounter Details Date Type Department Care Team (Latest Contact Info) Description 05/23/2023 1:30 PM CDT Comprehensive Visit Division of Pulmonary Medicine in [place], [place] [address] [place] [phone] Anum Jacobson, Deejay LINDQUIST, D.N.P. [address] [place] [phone] Chronic Obstructive Pulmonary Disease (HCC) (Primary Dx); Shortness Of Breath; Snoring Social History Tobacco Use Types Packs/Day Years Used Date Smoking Tobacco: Every Day Cigarettes 1 55 Started: 03/06/1975 Smokeless Tobacco: Never Alcohol Use Standard Drinks/Week Comments Yes 0 (1 standard drink = 0.6 oz pur e alcohol) [facility] Utilities Answer Date Recorded In the past [address] [facility] [employer], gas, oil, or water [employer] threatened to shut off services in your [...] Never 07/20/2019 How often do you attend temple or restoration serv ices? Never 07/20/2019 Active Member of [...] Answer Date Recorded PHQ-2 Score 2 04/29/2019 [facility] Occupat ional Health - Occupational Stress [...] your living situation today? I have a [facility] place to live 05/17/2023 Education Answer Date Recorded What is the highest level of school you have completed or the highest degree you have received? 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 - 05/23/2023 1:30 PM CDT SUBJECTIVE REASON FOR CONSULT Chronic Obstructive Pulmonary Disease Referred by: Perla Lorenz M.D. [address] [place] [phone] HISTORY OF PRESENT ILLNESS Genevieve Allison is a 62 y.o. female who presents for evaluation and treatment of COPD. Mrs. Allison recently quit smoking 1 month ago, she has a 47 pack year smoking history. 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 She has had a diagnosis of COPD for many years due to her smoking history and was provided an albuterol inhaler to be used as needed. She has never had pulmonary function tests completed. Mrs. Allison was hospitalized from 04/24/2023 to 04/26/2023 for acute hypoxemic respiratory failure in the setting of a presumed COPD exacerbation (no prior PFTs documented) and community-acquired pneumonia. She was treated with antibiotics and steroids. Prior to her hospitalization, the patient states she was in her usual health. She was discharged on 1 L nasal cannula with activity and 2 L nasalcannula while sleeping. While she was hospitalized, she did experience chest pressure that radiateddown her left arm. Her troponins and ECG were unremarkable. She has a history of a mildly positive nuclear medicine stress test in 2021. She also experienced persistent hypertension while hospitalized and discharged on amlodipine and valsartan. She is going to follow up with cardiology outpatient. She states her blood pressures at home have still been elevated despite her blood pressure medications. She was seen by nicotine dependence while in the hospital and continues to follow with them as an outpatient. She denies any exacerbations requiring antibiotics or steroids prior to her hospitalization. She did test positive for COVID-19 the beginning of March 2023 with symptoms including fever and body aches, she denies any respiratory symptoms at that time. Since being discharged from the hospital, she feels like her breathing is at her baseline. 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 She has not been using her oxygen at home, she states she was checking her oxygen saturations at home and they were in the mid 90s on roomair. She has not started on the Stiolto Respimat that was ordered at discharge due to the cost. Shedenies use of her albuterol inhaler since discharge. Since she quit smoking, she has noticed a 15 pound weight gain. She denies any fatigue, increasing shortness of breath, and swelling in her legs. S he denies any change in her diet and activity level. 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 She denies having a routine exercise program. She is up-to-date on age appropriate vaccinations. She has not been enrolled in pulmonary rehab or lung cancer screening. She denies fever, chills, post-nasal drip, and GERD-like symptoms. Current dyspnea level: mMRC 2 The following portions of the patient's history were reviewed and updated as appropriate: allergies, current medications, family history, medical history, social history, surgical history, and problem list. REVIEW OF SYSTEMS Pertinent items are noted in HPI; all other review of systems was negative. OBJECTIVE SpO2 93% PHYSICAL EXAM General appearance: Alert, cooperative, no acute distress, and unaccompanied. Lungs: Clear to auscultation bilaterally. Oxygenating on room air at 93% Heart: Regular rate and rhythm, S1, S2 normal. No murmur Abdomen: Obese; abdomen soft, nontender. Bowel sounds active. Extremities: Nonpitting lower extremity edema DIAGNOSTIC REVIEW I have reviewed the patient's current laboratory, imaging, and other diagnostic studies. Clinicallysignificant abnormal findings are as follows: CT Chest without IV Contrast 05/22/2023 IMPRESSION: 1. Severe upper lung predominant centrilobular seen in the. 2. Severe coronary artery calcification. Oxygen Titration 05/23/2023 Room air at rest and with activity. Oxygen saturation was 96% at rest and after 4 minutes of exercise, oxygen saturation was 93%. Pulmonary Function Tests 05/23/2023 TLC 112%; RV 162%; FEV1/FVC 45.4; FEV1 post-bronchodilator 50% predicted; DLCOcSB 55% Home Overnight Oximetry Adjusted Index SpO2 4.6; Time spent with oxygen saturation less than 89% is 177.1 minutes ASSESSMENT / PLAN ASSESSMENT #1 Chronic Obstructive Pulmonary Disease, Gold 2 Stage E #2 Snoring #3 Prior cigarette use, quit 1 month ago #4 Hypertension PLAN Start Yupelri nebulizer daily and Perforomist nebulizer twice a day for COPD management. The challenge with treatment for Mrs. Allison is finding a treatment regimen that is cost effective. She initially tried Stiolto Respimat, however did not warp picker from the pharmacy as the cost was over $500. GoodRx was used to look at the cost of the other inhalers within the LABA/LAMA class and unfortunately they all were over $500. Continue to use the albuterol inhaler as needed for wheezing or shortnessof breath. An updated prescription was sent to the pharmacy. I congratulated the patient on smoking cessation. She verbalizes that she will continue with the smoking cessation. She is interested in participating in pulmonary rehab. Due to her work schedule and living out of town, she would be interested in participating in the home going pulmonary rehab program. I have reached out to our home going pulmonary rehab colleagues and they will call the patient with details. She does qualify for lung cancer screening and is interested in participating in this in [place].She would be due for a CT chest in May 2024. With her recent home overnight oximetry and stating she does snore, a referral to sleep medicine was made. They will contact patient for an appointment Patient is agreeable with the plan outlined above, all questions were answered. She will follow up in clinic in 6 months with repeat PFTs. I encouraged the patient to reach out sooner if needs arise. This case was discussed with and staffed by my physician colleague, Dr. Brice. I spent 60 minutes face to face and non-face to face caring for the patient today. Anum Jacobson APRN, C.N.P., D.N.P. Associated attestation - Trav Brice M.D. - 05/23/2023 3:46 PM CDT I was the supervising physician in the delivery of the service. Ms Allison suffers from radiographic emphysema and moderate obstruction with reduction in DLCO in PFTs. Never tested before; however, recent hospitalization with exacerbation triggered this visit. Unfortunately could not start inhaler therapy given excessive cost. Not an uncommon problem. Today, she seems stable. Back to previous functionality but symptomatic. Fortunately she quit smoking and has not return to smoking since her hospital admission. Agree with LABA/LAMA combination is ideal for her right now. NO indication for inhaled corticosteroid. Normal eosinophil level. I have recommended pulmonary rehabilitation and general measures to decrease potential for exacerbations. Sleep medicine consultation. Return to clinic in six months from now. Trav Brice M.D. documented in this encounter Plan of Treatment Upcoming Encounters Date Type Department Care Team (Late st Contact Info) Description 07/05/2023 9:30 AM CDT Appointment Department of Laboratory Medicine and Pathology, [facility], in [place], [place] [address] [place] [phone] Dilcia Ingram D.O. [address] [place] [address] 07/05/2023 10:30 AM CDT Hospital Encounter Department of Radiology, [facility], in [place], [place] [address] [place] [address] Dilcia Ingram D.O. [address] [place] [address] 07/05/2023 1:00 PM CDT Comprehensive Visit Department of Vascular Medicine in [place], [place] [address] [place] [address] Isaiah Manrique M.D. [address] [place] [address] Scheduled Orders Name Type Priority Associated Diagnoses Orde r Schedule Pulmonary Function Tests PFT Routine Shortness Of Breath Chronic Obstructive Pulmonary Disease (HCC) Expected: 11/23/2023, Expires: 08/22/2024 Scheduled Referrals Name Type Priority Associated Diagnoses Orde r Schedule Sleep Medicine - General consult (clinic) Outpatient Referral Routine Chronic Obstructive Pulmonary Disease (HCC) Snoring Expected: 05/23/2023 (Approximate), Expires: 08/22/2024 Pulmonary Medicine office visit (clinic) Outpatient Referral Routine Expected: 11/23/2023 (Approximate), Expires: 08/22/2024 documented as of this encounter Visit Diagnoses Diagnosis Chronic Obstructive Pulmonary Disease (HCC)- Primary Shortness Of Breath Snoring documented in this encounter Additional Health Concerns Assessment Noted Time PHQ-9 Depression Total Score: 6 04/29/19 20 12:40 PM CISTERN ROOM WORKING SUPERVISOR documented as of this encounter Care Teams Marine Resource Economist Relationship Specialty Start Date End Date Elsewhere, Pcp PCP - General Internal Medicine 04/24/23 documented as of this encounter
--- OUTSIDE RECORDS SUMMARY | 2023-06-29 11:38 | XMS_ITS | Encounter Summary ---
Author Name Unknown Organization [facility] Address [address] [place] [address] Care Team Providers Care Acting Teacher Name Role Phone Elsewhere, Pcp Primary Care Provider Unavailabl e Reason for Referral * Outpatient (Routine) - Closed Specialty Diagnoses / Procedures Referred By Carey escobar Referred To Contact Diagnoses Angina Pectoris Tobacco User Procedures Echo Stress Krupa Bates M.D. [address] [place] [address] [facility] Referral ID Status Reason Start Date Expiration Date Visits Re quested Visits Authorized [id number] Closed 04/25/2023 04/24/2024 1 1 Reason for Visit * Outpatient (Routine) - Closed Specialty Diagnoses / Procedures Referred By Carey escobar Referred To Contact Diagnoses Angina Pectoris Tobacco User Procedures Echo Stress Krupa Bates M.D. [address] [place] [phone] [facility] Referral ID Status Reason Start Date Expiration Date Visits Re quested Visits Authorized [id number] Closed 04/25/2023 04/24/2024 1 1 Encounter Details Date Type Department Care Team (Latest Contact Info) Description 05/23/2023 2:53 PM CDT - 05/23/2023 11:59 PM CDT Hospital Encounter Department of Cardiovascular Diseases in [place], [place] [address] [place] [address] Krupa Bates M.D. [address] [place] [address] Angina Pectoris Tobacco User Discharge Disposition: Home or Self Care Social History Tobacco Use Types Packs/Day Years Used Date Smoking Tobacco: Every Day Cigarettes 1 55 Started: 03/06/1975 Smokeless Tobacco: Never Alcohol Use Standard Drinks/Week Comments Yes 0 (1 standard drink = 0.6 oz pur e alcohol) [facility] Utilities Answer Date Recorded In the [...] Never 07/20/2019 How often do you attend sabianism or mandaeism serv ices? Never 07/20/2019 Active Member of [...] Answer Date Recorded PHQ-2 Score 2 04/29/2019 [facility] of Occupat ional Health - Occupational Stress [...] your living situation today? I have a [facility] place to live 05/17/2023 Education Answer Date Recorded What is the highest level of school you have completed or the highest degree you have received? Associate degree: academic program 02/12/2019 Sex and Gender Information Value Date Recorded Sex Assigned at Female 05/07/2023 12:13 PM SYSTEMS ENG Gender Identity Female 07/20/2019 7:51 PM CDT Sexual Orientation Straight 07/20/2019 7: 51 PM CDT documented as of this encounter Medications at Time of Discharge Medication Sig Dispensed Refills Start Date End Date acetaminophen (TYLENOL) 500 mg tablet Take 1,000 mg by mouth as needed for pain. albuterol 90 mcg/actuation inhalerIndications:Sh ortness Of Breath,Chronic Obstructive Pulmonary Disease (HCC) Inhale 2 puffs every 4 (four) hours as needed for wheezing or shortness of breath. 1 g 05/23/2023 amLODIPine (NORVASC) 5 mg tablet Take 1 tablet (5 mg total) by mouth daily. 90 tablet 3 04/25/2023 aspirin, buffered, 325 mg tablet Take 1 tablet (325 mg total) by mouth daily. 360 tablet 04/06/2019 atorvastatin (LIPITOR) 80 mg tabletIndications:Str amanda (HCC) Take 1 tablet (80 mg total) by mouth at bedtime. 90 tablet 04/26/2023 formoterol (PERFOROMIST) 20 mcg/2 mL nebulizer solutionIndications:S hortness Of Breath,Chronic Obstructive Pulmonary Disease (HCC) Inhale 2 mL (20 mcg total) by nebulization 2 (two) times a day. 120 mL 05/23/2023 05/22/2024 ibuprofen (ADVIL,MOTRIN) 200 mg tablet Take 400 mg by mouth as needed for pain. nitroglycerin (NITROSTAT) 0.[address] 1 tablet (0.4 mg total) under the tongue every 5 (five) minutes as needed for chest pain. 30 tablet 04/26/2023 revefenacin (YUPELRI) 175 mcg/3 mL solution for nebulization nebulizer solutionIndications:S hortness Of Breath,Chronic Obstructive Pulmonary Disease (HCC) Inhale 3 mL (0.175 mg total) by nebulization daily. 90 mL 05/23/2023 05/22/2024 tiotropium-olodateroL (Stiolto Respimat) 2.5-2.5 mcg/actuation inhaler Inhale 2 puffs daily. 4 g 04/25/2023 valsartan (DIOVAN) 80 mg tablet Take 1 tablet (80 mg total) by mouth at bedtime. 30 tablet 04/25/2023 documented as of this encounter Plan of Treatment Upcoming Encounters Date Type Department Care Team (Late st Contact Info) Description 07/05/2023 9:30 AM CDT Appointment Department of Laboratory Medicine and Pathology, [facility] in [place], [place] [address] [place] [address] Dilcia Ingram D.O. [address] [place] [phone] 07/05/2023 10:30 AM CDT Hospital Encounter Department of Radiology, [facility] in [place], [place] [address] [place] [address] Dilcia Ingram D.O. [address] [place] [phone] 07/05/2023 1:00 PM CDT Comprehensive Visit Department of Vascular Medicine in [place], [place] [address] [place] [address] Isaiah Manrique M.D. [address] [place] [address] documented as of this encounter Procedures Procedure Name Priority Date/Time Associated Diagnosis Comments ECHO STRESS 2D WITH COLOR AND LIMITED DOPPLER Routine 05/23/2023 4:15 PM CDT Angina Pectoris Tobacco User documented in this encounter Results * ECHO STRESS 2D WITH COLOR [...] [facility] CV EIMS [facility] At Rest 1 [facility] E[facility]S [facility] At Peak Stress 1 [facility] EIMS Anatomical Region Laterality Modality Echocardiography 05/23/2023 [...] Krupa Bates M.D. CV ECHO PROCEDU RES documented in this encounter Visit Diagnoses Diagnosis Angina Pectoris Tobacco User documented in this encounter Administered Medications Inactive Administered Medications - up to 3 most recent administrations Medication Order MAR Action Action Date Dose Rate Site atropine injection 0.25 mg 0.25 mg, intravenous, Once, On Mon05/23/23 at 1700, For 1 dose, Intraprocedure - Diagnostic Given 05/23/2023 3:51 PM CDT 0.25 mg DOBUTamine 1,000 mcg/mL in D5W 250 mL infusion 18.1 mg (DOBUTREX) 18.1 mg, intravenous, Once, On Mon05/23/23 at 1700, For 1 dose, Intraprocedure - Diagnostic, Infusion rate: 5-40 mcg/kg/min - see protocol. 250 mg in 250 mL New Bag 05/23/2023 3:40 PM CDT 18.1 mg metoprolol injection 2.5 mg (LOPRESSOR) 2.5 mg, intravenous, Once, On Mon05/23/23 at 1700, For 1 dose, Intraprocedure - Diagnostic Given 05/23/2023 3:57 PM CDT 2.5 mg sodium chloride 0.9 % injection 10 mL 10 mL, intravenous, As needed, line care, Starting on Mon05/23/23 at 1638, Prior to and following infusion and between multiple consecutive infusions: sodium chloride 0.9 % injection Given 05/23/2023 3:00 PM CDT 10 mL documented in this encounter Additional Health Concerns Assessment Noted Time PHQ-9 Depression Total Score: 6 04/29/19 20 12:40 PM SYSTEMS ENG documented as of this encounter Care Teams Acting Teacher Relationship Specialty Start Date End Date Elsewhere, Pcp PCP - General Internal Medicine 04/24/23 documented as of this encounter
--- OUTSIDE RECORDS SUMMARY | 2023-06-29 11:38 | XMS_ITS | Encounter Summary ---
Author Name Unknown Organization [facility] Address [address] [place] [address] Care Team Providers Care Transportation Logistics Internship Name Role Phone Elsewhere, Pcp Primary Care Provider Unavailabl e Encounter Details Date Type Department Care Team (Late st Contact Info) Description 05/23/2023 8:30 AM CDT Diagnostic Division of Pulmonary Medicine in [place], [place] [address] [place] [address] Krupa Baets M.D. [address] [place] [phone] Chronic Obstructive Pulmonary Disease (HCC) Social History Tobacco Use Types Packs/Day Years Used Date Smoking Tobacco: Every Day Cigarettes 1 55 Started: [birth year]/06/1975 Smokeless Tobacco: Never Alcohol Use Standard Drinks/Week Comments Yes 0 (1 standard drink = 0.6 oz pur e alcohol) [facility] Utilities Answer Date Recorded In the [...] Never 07/20/2019 How often do you attend nondenominational or mu-ism serv ices? Never 07/20/2019 Active Member of [...] Answer Date Recorded PHQ-2 Score 2 04/29/2019 [facility] of Occupat ional Health - Occupational [...] your living situation today? I have a [facility] place to live 05/17/2023 Education Answer Date Recorded What is the highest level of school you have completed or the highest degree you have received? Associate degree: academic program 02/12/2019 Sex and Gender Information Value Date Recorded Sex Assigned at Female 05/07/2023 12:13 PM TICKET WRITER Gender Identity Female 07/20/2019 7:51 PM CDT Sexual Orientation Straight 07/20/2019 7: 51 PM CDT documented as of this encounter Plan of Treatment Upcoming Encounters Date Type Department Care Team (Late st Contact Info) Description 07/05/2023 9:30 AM CDT Appointment Department of Laboratory Medicine and Pathology, [facility] in [place], [place] [address] [place] [address] Dilcia Ingram D.O. [address] [place] [phone] 07/05/2023 10:30 AM CDT Hospital Encounter Department of Radiology, [facility], in [place], [place] [address] [place] [address] Dilcia Ingram D.O. [address] [place] [phone] 07/05/2023 1:00 PM CDT Comprehensive Visit Department of Vascular Medicine in [place], [place] [address] [place] [address] Isaiah Manrique M.D. [address] [place] [address] documented as of this encounter Procedures Procedure Name Priority Date/Time Associated Diagnosis Comments OXYGEN TITRATION Routine 05/23/2023 8:36 AM CDT Chronic Obstructive Pulmonary Disease (HCC) documented in this encounter Results * Oxygen Titration (05/23/2023 8:36 AM CDT) [...] Krupa Bates M.D. PFT ORDERABLES MMODAL NA documented in this encounter Visit Diagnoses Diagnosis Chronic Obstructive Pulmonary Disease (HCC) documented in this encounter Additional Health Concerns Assessment Noted Time PHQ-9 Depression Total Score: 6 04/29/19 20 12:40 PM TICKET WRITER documented as of this encounter Care Teams Transportation Logistics Internship Relationship Specialty Start Date End Date Elsewhere, Pcp PCP - General Internal Medicine 04/24/23 documented as of this encounter
--- OUTSIDE RECORDS SUMMARY | 2023-06-29 11:38 | XMS_ITS | Encounter Summary ---
Author Name Unknown Organization [facility] Address [address] [place] [address] Care Team Providers Care Campus Ambassador Name Role Phone Elsewhere, Pcp Primary Care Provider Unavailabl e Reason for Visit * Reason Onset Date Comments Forms 05/31/2023 Oxygen concentra tor forms Encounter Details Date Type Department Care Team (Latest Contact Info) Description 05/31/2023 Clinical Communication Division of Pulmonary Medicine in [place], [place] [address] [place] [address] Anum Jacobson, AMEENA, C.N.P., D.N.P. [address] [place] [address] Forms (Oxygen concentrator forms) Social History Tobacco Use Types Packs/Day Years Used Date Smoking Tobacco: Former Cigarettes 1 49.1 0 03/14/1974 - 04/24/2023 Smokeless Tobacco: Never Alcohol Use Standard Drinks/Week Comments Yes 0 (1 standard drink = 0.6 oz pur e alcohol) Very very rarely [facility] Utilities Answer Date Recorded In the [...] Never 07/20/2019 How often do you attend buddhist or jehovah's witness serv ices? Never 07/20/2019 Active Member of [...] Date Recorded PHQ-2 Score 2 04/29/2019 [facility] - Occupational Stress Questionnaire Answer [...] your living situation today? I have a [facility] place to live 05/17/2023 Education Answer Date Recorded What is the highest level of school you have completed or the highest degree you have received? Associate degree: academic program 02/12/2019 Sex and Gender Information Value Date Recorded Sex Assigned at Female 05/07/2023 12:13 PM VICE PRESIDENT OF BUSINESS DEVELOPMENT Gender Identity Female 07/20/2019 7:51 PM CDT Sexual Orientation Straight 07/20/2019 7: 51 PM CDT documented as of this encounter Miscellaneous Notes * Telephone Encounter - Lyudmila Diallo R.RVazquez - 06/01/2023 1:11 PM CDT We are unable to sign the requested Letter of Medical Necessity from [facility]. Mrs. Allison did not require oxygen at rest or exercise in her recent oxygen assessment done 05/23/2023. Mrs. Allison did, however, show desaturation with sleep in her 05/22/2023 overnight oximetry. An order for 2 L/min Oxygen with sleep was proxied for Dr. Brice to sign. [facility] to [facility]. [facility] to let [facility] know this. Negrita Diallo, END LATHE OPERATOR documented in this encounter Plan of Treatment Upcoming Encounters Date Type Department Care Team (Late st Contact Info) Description 07/05/2023 9:30 AM CDT Appointment Department of Laboratory Medicine and Pathology, [facility], in [place], [place] [address] [place] [address] Dilcia Ingram D.O. [address] [place] [phone] 07/05/2023 10:30 AM CDT Hospital Encounter Department of Radiology, [facility] in [place], [place] [address] [place] [address] Dilcia Ingram D.O. [address] [place] [phone] 07/05/2023 1:00 PM CDT Comprehensive Visit Department of Vascular Medicine in [place], [place] [address] [place] [address] Isaiah Manrique M.D. [address] [place] [phone] documented as of this encounter Visit Diagnoses Not on filedocumented in this encounter Additional Health Concerns Assessment Noted Time PHQ-9 Depression Total Score: 6 04/29/19 20 12:40 PM VICE PRESIDENT OF BUSINESS DEVELOPMENT documented as of this encounter Care Teams Campus Ambassador Relationship Specialty Start Date End Date Elsewhere, Pcp PCP - General Internal Medicine 04/24/23 documented as of this encounter
--- OUTSIDE RECORDS SUMMARY | 2023-06-29 11:38 | XMS_ITS | Encounter Summary ---
Author Name Unknown Organization [facility] Address [address] [place] [address] Care Team Providers Care Cash Register Mechanic Name Role Phone Elsewhere, Pcp Primary Care Provider Unavailabl e Reason for Visit * Reason Onset Date Comments Cardiomyopathy 05/04/2023 Hospital COPD RT ten day post discharge call Encounter Details Date Type Department Care Team (Latest Contact Info) Description 05/04/2023 Clinical Communication [facility], Third Floor [address] [place] [address] Radha Davidson, R.R.T., L.R.T. Cardiomyopathy (Hospital COPD RT ten day post discharge call) Social History Tobacco Use Types Packs/Day Years Used Date Smoking Tobacco: Every Day Cigarettes 1 55 Started: 03/06/1975 Smokeless Tobacco: Never Alcohol Use Standard Drinks/Week Comments Yes 0 (1 standard drink = 0.6 oz pur e alcohol) [facility] Utilities Answer Date Recorded In the past 12 months has e electric, gas, oil, or water company threatened to shut off services in your home? No 04/24/2023 Humiliation, Afraid, Rape, and Kick questionnair e [...] How often do you attend sabianism or adventism serv ices? Never 07/20/2019 Active Member of [...] Answer Date Recorded PHQ-2 Score 2 04/29/2019 [facility] - Occupational Stress Questionnaire Answer Date Recorded Feeling of Stress Only a little 02/12/2019 Exercise Vital Sign Answer Date Recorde d Days of Exercise per Week Not on file 2019 On average, how many minutes do you engage in exercise at this level? 0 min 07/20/2019 Hunger Vital Sign Answer Date Recorded Within the past 12 months, y ou worried that your food would run out before you got the money to buy more. Never true 04/24/19 24 Within the past 12 months, t he food you bought just didn't last and you didn't have money to get more. Never true 04/24/2023 PRAPARE - Transportation Answer Date Re corded In the past 12 months, has l ack of transportation kept you from medical appointments or from getting medications? No 04/06 In the past 12 months, has l ack of transportation kept you from meetings, work, or from getting things needed for daily living? No 04/24/2023 Depression Answer Date Recor ded PHQ-9 Total Score (max 27) 6 04/29 Nutrition Answer Date Recorded Nutrition: EVOO Fat Source Unknown 07/23 Nutrition: Servings of Fruits/Vegetables per Day Not on file 07/23/2022 Dental Answer Date Recorded Dental: Regular Dentist Unknown 07/24/19 23 Housing Stability Answer Date Recorded What is your living situation today? I have a [employer] place to live 04/24/2023 Education Answer Date Recorded What is the highest level of school you have completed or the highest degree you have received? Associate degree: academic program 02/12/2019 Sex and Gender Information Value Date Recorded Sex Assigned at Female 05/07/2023 12:13 PM STENCIL CUTTER Gender Identity Female 07/20/2019 7:51 PM CDT Sexual Orientation Straight 07/20/2019 7: 51 PM CDT documented as of this encounter Miscellaneous Notes * Telephone Encounter - Radha Davidson R.R.T., L.R.T. - 05/04/2023 3:02 PM STENCIL CUTTER Hospital COPD Respiratory Therapist Phone Call Follow-up: 10-14 days Other Call Current COPD Inhaled Medications: Not taken as prescribed. Albuterol: HFA as needed LAMA/LABA: Stiolto Respimat prescribed 2 puffs once a day not obtained yet from pharmacy.Waiting oninsurance coverage Bronchial Hygiene: minimally productive cough Oxygen: worn with activity Noninvasive Positive Airway Pressure:none COPD Exacerbation Symptom Identification Reviewed: Change in Dyspnea Appointment Reminders: PFTS , Oxygen titration study , Pulmonary COPD Clinic - May 21 and CIL CUTTER documented in this encounter Plan of Treatment Upcoming Encounters Date Type Department Care Team (Late st Contact Info) Description 07/05/2023 9:30 AM CDT Appointment Department of Laboratory Medicine and Pathology, [facility] in [place], [place] [address] [place] [address] Dilcia Ingram D.O. [address] [place] [address] 07/05/2023 10:30 AM CDT Hospital Encounter Department of Radiology, [facility], in [place], [place] [address] [place] [address] Dilcia Ingram D.O. [address] [place] [phone] 07/05/2023 1:00 PM CDT Comprehensive Visit Department of Vascular Medicine in [place], [place] [address] [place] [address] Isaiah Manrique M.D. [address] [place] [phone] documented as of this encounter Visit Diagnoses Not on filedocumented in this encounter Additional Health Concerns Assessment Noted Time PHQ-9 Depression Total Score: 6 04/29/19 20 12:40 PM STENCIL CUTTER documented as of this encounter Care Teams Cash Register Mechanic Relationship Specialty Start Date End Date Elsewhere, Pcp PCP - General Internal Medicine 04/24/23 documented as of this encounter
--- OUTSIDE RECORDS SUMMARY | 2023-06-29 11:38 | XMS_ITS | Encounter Summary ---
Author Name Unknown Organization [facility] Address [address] [place] [address] Care Team Providers Care Supervisor Slitting And Shipping Name Role Phone Elsewhere, Pcp Primary Care Provider Unavailabl e Encounter Details Date Type Department Care Team (Late st Contact Info) Description 04/26/2023 Clinical Communication Division of Community Internal Medicine, [facility] in [place], [place] [address] [place] [phone] Krupa Bates M.D. [address] [place] [phone] Social History Tobacco Use Types Packs/Day Years Used Date Smoking Tobacco: Every Day Cigarettes 1 55 Started: 03/06/1975 Smokeless Tobacco: Never Alcohol Use Standard Drinks/Week Comments Yes 0 (1 standard drink = 0.6 oz pur e alcohol) [facility] Utilities Answer Date Recorded In the [...] Never 07/20/2019 How often do you attend adventism or bahai serv ices? Never 07/20/2019 Active Member of [...] Answer Date Recorded PHQ-2 Score 2 04/29/2019 [facility] of Occupat ional Health - Occupational Stress [...] your living situation today? I have a [facility] place to live 04/24/2023 Education Answer Date Recorded What is the highest level of school you have completed or the highest degree you have received? Associate degree: academic program 02/12/2019 Sex and Gender Information Value Date Recorded Sex Assigned at Female 05/07/2023 12:13 PM WHITEWATER RAFTING GUIDE Gender Identity Female 07/20/2019 7:51 PM CDT Sexual Orientation Straight 07/20/2019 7: 51 PM CDT documented as of this encounter Plan of Treatment Upcoming Encounters Date Type Department Care Team (Late st Contact Info) Description 07/05/2023 9:30 AM CDT Appointment Department of Laboratory Medicine and Pathology, [facility] in [place], [place] [address] [place] [address] Dilcia Ingram D.OJustin [address] [place] [phone] 07/05/2023 10:30 AM CDT Hospital Encounter Department of Radiology, [facility] in [place], [place] [address] [place] [address] Dilcia Ingram D.OJustin [address] [place] [phone] 07/05/2023 1:00 PM CDT Comprehensive Visit Department of Vascular Medicine in [place], [place] [address] [place] [address] Isaiah Manrique M.D. [address] [place] [phone] documented as of this encounter Visit Diagnoses Not on filedocumented in this encounter Additional Health Concerns Assessment Noted Time PHQ-9 Depression Total Score: 6 04/29/19 20 12:40 PM WHITEWATER RAFTING GUIDE documented as of this encounter Care Teams Supervisor Slitting And Shipping Relationship Specialty Start Date End Date Elsewhere, Pcp PCP - General Internal Medicine 04/24/23 documented as of this encounter
--- OUTSIDE RECORDS SUMMARY | 2023-06-29 11:38 | XMS_ITS | Encounter Summary ---
Author Name Unknown Organization [facility] Address [address] [place] [address] Care Team Providers Care Materials Management Clerk Name Role Phone Elsewhere, Pcp Primary Care Provider Unavailabl e Reason for Referral * Outpatient (Routine) - Authorized Specialty Diagnoses / Procedures Referred By Carey escobar Referred To Contact Vascular Medicine Diagnoses Aneurysm Abdominal Aortic Personal History Rupali Tate M.D. [address] [place] [address] [facility] Referral ID Status Reason Start Date Expiration Date V isits Requested Visits Authorized [id number] Authorized 05/23/2023 11/21/2024 1 1 Encounter Details Date Type Department Care Team (Late st Contact Info) Description 05/23/2023 [facility] [address] [place] [address] Rupali Tate M.D. [address] [place] [address] Abdominal Aortic Aneurysm Without Rupture Unspecified (HCC) (Primary Dx) Social History Tobacco Use Types Packs/Day Years Used Date Smoking Tobacco: Every Day Cigarettes 1 55 Started: 03/06/1975 Smokeless Tobacco: Never Alcohol Use Standard Drinks/Week Comments Yes 0 (1 standard drink = 0.6 oz pur e alcohol) [facility] Utilities Answer Date Recorded In the [...] Never 07/20/2019 How often do you attend roman catholic or anglican serv ices? Never 07/20/2019 Active Member of [...] Answer Date Recorded PHQ-2 Score 2 04/29/2019 [facility] of Occupat ional Health - Occupational Stress [...] your living situation today? I have a [facility] place to live 05/17/2023 Education Answer Date Recorded What is the highest level of school you have completed or the highest degree you have received? Associate degree: academic program 02/12/2019 Sex and Gender Information Value Date Recorded Sex Assigned at Female 05/07/2023 12:13 PM SHEET CUTTING OPERATOR Gender Identity Female 07/20/2019 7:51 PM CDT Sexual Orientation Straight 07/20/2019 7: 51 PM CDT documented as of this encounter Plan of Treatment Upcoming Encounters Date Type Department Care Team (Late st Contact Info) Description 07/05/2023 9:30 AM CDT Appointment Department of Laboratory Medicine and Pathology, [facility], in [place], [place] [address] [place] [address] Dilcia Ingram D.O. [address] [place] [address] 07/05/2023 10:30 AM CDT Hospital Encounter Department of Radiology, [facility], in [place], [place] [address] [place] [address] Dilcia Ingram D.O. [address] [place] [phone] 07/05/2023 1:00 PM CDT Comprehensive Visit Department of Vascular Medicine in [place], [place] [address] [place] [address] Isaiah Manrique M.D. [address] [place] [address] Scheduled Referrals Name Type Priority Associated Diagnoses Orde r Schedule Vascular Surgery Referral Outpatient Referral Routine Abdominal Aortic Aneurysm Without Rupture Unspecified (HCC) Expected: 05/23/2023 (Approximate), Expires: 08/22/2024 documented as of this encounter Visit Diagnoses Diagnosis Abdominal Aortic Aneurysm Without Rupture Unspecified (HCC)- Primary documented in this encounter Additional Health Concerns Assessment Noted Time PHQ-9 Depression Total Score: 6 04/29/19 20 12:40 PM SHEET CUTTING OPERATOR documented as of this encounter Care Teams Materials Management Clerk Relationship Specialty Start Date End Date Elsewhere, Pcp PCP - General Internal Medicine 04/24/23 documented as of this encounter
--- OUTSIDE RECORDS SUMMARY | 2023-06-29 11:38 | XMS_ITS | Encounter Summary ---
Author Name Unknown Organization [facility] Address [address] [place] [address] Care Team Providers Care Window Caser Name Role Phone Elsewhere, Pcp Primary Care Provider Unavailabl e Reason for Referral * MRI/CAT/PET Scan (Routine) - Closed Specialty Diagnoses / Procedures Referred By Carey escobar Referred To Contact Radiology Diagnoses Shortness Of Breath Procedures CT Chest without IV Contrast Perla Lorenz M.D. [address] [place] [address] [facility] Referral ID Status Reason Start Date Expiration Date Visits Re quested Visits Authorized [id number] Closed 04/24/2023 04/23/2024 1 1 Reason for Visit * MRI/CAT/PET Scan (Routine) - Closed Specialty Diagnoses / Procedures Referred By Carey escobar Referred To Contact Radiology Diagnoses Shortness Of Breath Procedures CT Chest without IV Contrast Perla Lorenz M.D. [address] [place] [address] [facility] Referral ID Status Reason Start Date Expiration Date Visits Re quested Visits Authorized [id number] Closed 04/24/2023 04/23/2024 1 1 Encounter Details Date Type Department Care Team (Latest Contact Info) Description 05/22/2023 2:45 PM CDT - 05/22/2023 11:59 PM CDT Hospital Encounter Department of Radiology, [facility], in [place], [place] [address] [place] [address] Perla Lorenz M.D. [address] [place] [address] Shortness Of Breath Discharge Disposition: Home or Self Care Social History Tobacco Use Types Packs/Day Years Used Date Smoking Tobacco: Every Day Cigarettes 1 55 Started: 03/06/1975 Smokeless Tobacco: Never Alcohol Use Standard Drinks/Week Comments Yes 0 (1 standard drink = 0.6 oz pur e alcohol) [facility] Utilities Answer Date Recorded In the [...] Never 07/20/2019 How often do you attend bahai or latter-day serv ices? Never 07/20/2019 Active Member of [...] Answer Date Recorded PHQ-2 Score 2 04/29/2019 [facility] of Occupat ional Health - Occupational Stress [...] your living situation today? I have a [facility] place to live 05/17/2023 Education Answer Date Recorded What is the highest level of school you have completed or the highest degree you have received? Associate degree: academic program 02/12/2019 Sex and Gender Information Value Date Recorded Sex Assigned at Female 05/07/2023 12:13 PM VISUAL SUPERVISOR Gender Identity Female 07/20/2019 7:51 PM CDT Sexual Orientation Straight 07/20/2019 7: 51 PM CDT documented as of this encounter Medications at Time of Discharge Medication Sig Dispensed Refills Start Date End Date acetaminophen (TYLENOL) 500 mg tablet Take 1,000 mg by mouth as needed for pain. amLODIPine (NORVASC) 5 mg tablet Take 1 tablet (5 mg total) by mouth daily. 90 tablet 3 04/25/2023 aspirin, buffered, 325 mg tablet Take 1 tablet (325 mg total) by mouth daily. 360 tablet 04/06/2019 atorvastatin (LIPITOR) 80 mg tabletIndications:Str amanda (HCC) Take 1 tablet (80 mg total) by mouth at bedtime. 90 tablet 3 04/26/2023 ibuprofen (ADVIL,MOTRIN) 200 mg tablet Take 400 mg by mouth as needed for pain. nitroglycerin (NITROSTAT) 0.[address] 1 tablet (0.4 mg total) under the tongue every 5 (five) minutes as needed for chest pain. 30 tablet 04/26/2023 tiotropium-olodateroL (Stiolto Respimat) 2.5-2.5 mcg/actuation inhaler Inhale 2 puffs daily. 4 g 11 04/25/2023 valsartan (DIOVAN) 80 mg tablet Take 1 tablet (80 mg total) by mouth at bedtime. 30 tablet 11 04/25/2023 albuterol (PROVENTIL HFA,VENTOLIN HFA) 90 mcg/actuation inhaler Inhale 2 puffs every 4 (four) hours as needed for wheezing or shortness of breath. 05/23/2023 nicotine (NICOTROL NS) 10 mg/mL nasal spray 1-2 sprays every 1-2 hrs. as needed for cravings 40 mL 3 04/24/2023 05/23/2023 nicotine (NICOTROL NS) 10 mg/mL nasal spray Use 1 spray in each nostril every 1 to 2 hours or as needed for tobacco withdrawal symptoms. Not to exceed 40 doses (80 sprays) per day 10 mL 3 04/25/2023 05/23/2023 documented as of this encounter Plan of Treatment Upcoming Encounters Date Type Department Care Team (Late st Contact Info) Description 07/05/2023 9:30 AM CDT Appointment Department of Laboratory Medicine and Pathology, [facility], in [place], [place] [address] [place] [address] Dilcia Ingram D.O. [address] [place] [phone] 07/05/2023 10:30 AM CDT Hospital Encounter Department of Radiology, [facility] in [place], [place] [address] [place] [address] Dilcia Ingram D.O. [address] [place] [phone] 07/05/2023 1:00 PM CDT Comprehensive Visit Department of Vascular Medicine in [place], [place] [address] [place] [address] Isaiah Manrique M.D. [address] [place] [phone] documented as of this encounter Procedures Procedure Name Priority Date/Time Associated Diagnosis Comments CT CHEST WITHOUT IV CONTRAST RAD - Routine (most inpatients and all outpatients) 05/22/2023 3:02 PM CDT Shortness Of Breath documented in this encounter Results * CT Chest without IV Contrast (05/22/2023 [...] the. 2. Severe coronary artery calcification. Perla HUNTER CT PROCEDURES documented in this encounter Visit Diagnoses Diagnosis Shortness Of Breath documented in this encounter Additional Health Concerns Assessment Noted Time PHQ-9 Depression Total Score: 6 04/29/19 20 12:40 PM VISUAL SUPERVISOR documented as of this encounter Care Teams Window Caser Relationship Specialty Start Date End Date Elsewhere, Pcp PCP - General Internal Medicine 04/24/23 documented as of this encounter
--- OUTSIDE RECORDS SUMMARY | 2023-06-29 11:38 | XMS_ITS | Encounter Summary ---
Author Name Unknown Organization [facility] Address [address] [place] [address] Care Team Providers Care Manager Risk Name Role Phone Elsewhere, Pcp Primary Care Provider Unavailabl e Encounter Details Date Type Department Care Team (Late st Contact Info) Description 06/01/2023 Clinical Communication Division of Pulmonary Medicine in [place], [place] [address] [place] [address] Trav Brice M.D. [address] [place] [phone] Social History Tobacco Use Types Packs/Day Years Used Date Smoking Tobacco: Former Cigarettes 1 49.1 0 03/14/1974 - 04/24/2023 Smokeless Tobacco: Never Alcohol Use Standard Drinks/Week Comments Yes 0 (1 standard drink = 0.6 oz pur e alcohol) Very very rarely [facility] Utilities Answer Date Recorded In the [...] Never 07/20/2019 How often do you attend sabianist or uatsdin serv ices? Never 07/20/2019 Active Member of [...] Answer Date Recorded PHQ-2 Score 2 04/29/2019 [facility] of Occupat ional Health [...] medical appointments or from getting medications? No 03/1 05/2023 In the past 12 months, has l [...] your living situation today? I have a [facility] place to live 05/17/2023 Education Answer Date Recorded What is the highest level of school you have completed or the highest degree you have received? Associate degree: academic program 02/12/2019 Sex and Gender Information Value Date Recorded Sex Assigned at Female 05/07/2023 12:13 PM MIDDLEWARE DEVELOPER Gender Identity Female 07/20/2019 7:51 PM CDT Sexual Orientation Straight 07/20/2019 7: 51 PM CDT documented as of this encounter Plan of Treatment Upcoming Encounters Date Type Department Care Team (Late st Contact Info) Description 07/05/2023 9:30 AM CDT Appointment Department of Laboratory Medicine and Pathology, [facility] in [place], [place] [address] [place] [address] Dilcia Ingram D.O. [address] [place] [phone] 07/05/2023 10:30 AM CDT Hospital Encounter Department of Radiology, [facility], in [place], [place] [address] [place] [address] Dilcia Ingram D.O. [address] [place] [phone] 07/05/2023 1:00 PM CDT Comprehensive Visit Department of Vascular Medicine in [place], [place] [address] [place] [address] Isaiah Manrique M.D. [address] [place] [address] documented as of this encounter Visit Diagnoses Diagnosis Chronic Obstructive Pulmonary Disease (HCC)- Primary documented in this encounter Additional Health Concerns Assessment Noted Time PHQ-9 Depression Total Score: 6 04/29/19 20 12:40 PM MIDDLEWARE DEVELOPER documented as of this encounter Care Teams Manager Risk Relationship Specialty Start Date End Date Elsewhere, Pcp PCP - General Internal Medicine 04/24/23 documented as of this encounter
--- OUTSIDE RECORDS SUMMARY | 2023-06-29 11:38 | XMS_ITS | Encounter Summary ---
Author Name Unknown Organization [facility] Address [address] [place] [address] Care Team Providers Care Systems Operator Name Role Phone Elsewhere, Pcp Primary Care Provider Unavailabl e Reason for Referral * Outpatient (Routine) - Authorized Specialty Diagnoses / Procedures Referred By Carey escobar Referred To Contact Diagnoses Abdominal Aortic Aneurysm Without Rupture Unspecified (HCC) Procedures US Aorta US Aorta Iliac Arteries Bilateral with Doppler Dilcia Ingram D.O. [address] [place] [address] [facility] Referral ID Status Reason Start Date Expiration Date V isits Requested Visits Authorized [id number] Authorized 05/26/2023 05/25/2024 1 1 Encounter Details Date Type Department Care Team (Late st Contact Info) Description 05/26/2023 Orders Only Department of Vascular Medicine in [place], [place] [address] [place] [phone] Dilcia Ingram D.O. [address] [place] [phone] Abdominal Aortic Aneurysm Without Rupture Unspecified (HCC) (Primary Dx) Social History Tobacco Use Types Packs/Day Years Used Date Smoking Tobacco: Former Cigarettes 1 49.1 0 03/14/1974 - 04/24/2023 Smokeless Tobacco: Never Alcohol Use Standard Drinks/Week Comments Yes 0 (1 standard drink = 0.6 oz pur e alcohol) Very very rarely [facility] Utilities Answer Date Recorded In the past [...] Never 07/20/2019 How often do you attend gnosticist or gnosticist serv ices? Never 07/20/2019 Active Member of [...] Answer Date Recorded PHQ-2 Score 2 04/29/2019 [facility] of Occupat ional Health - Occupational Stress [...] your living situation today? I have a [facility] place to live 05/17/2023 Education Answer Date Recorded What is the highest level of school you have completed or the highest degree you have received? Associate degree: academic program 02/12/2019 Sex and Gender Information Value Date Recorded Sex Assigned at Female 05/07/2023 12:13 PM POWER ELECTRONICS ENGINEER Gender Identity Female 07/20/2019 7:51 PM CDT Sexual Orientation Straight 07/20/2019 7: 51 PM CDT documented as of this encounter Plan of Treatment Upcoming Encounters Date Type Department Care Team (Late st Contact Info) Description 07/05/2023 9:30 AM CDT Appointment Department of Laboratory Medicine and Pathology, [facility], in [place], [place] [address] [place] [address] Dilcia Ingram D.O. [address] [place] [phone] 07/05/2023 10:30 AM CDT Hospital Encounter Department of Radiology, [facility], in [place], [place] [address] [place] [address] Dilcia Ingram D.O. [address] [place] [address] 07/05/2023 1:00 PM CDT Comprehensive Visit Department of Vascular Medicine in [place], [place] [address] [place] [address] Isaiah Manrique M.D. [address] [place] [address] Scheduled Orders Name Type Priority Associated Diagnoses Orde r Schedule Lipid Panel Lab Routine Abdominal Aortic Aneurysm Without Rupture Unspecified (HCC) 1 Occurrences starting 05/26/2023 until 08/25/2024 US Aorta Imaging RAD - Routine (m ost inpatients and all outpatients) Abdominal Aortic Aneurysm Without Rupture Unspecified (HCC) 1 Occurrences starting 05/26/2023 until 08/25/2024 documented as of this encounter Visit Diagnoses Diagnosis Abdominal Aortic Aneurysm Without Rupture Unspecified (HCC)- Primary documented in this encounter Additional Health Concerns Assessment Noted Time PHQ-9 Depression Total Score: 6 04/29/19 20 12:40 PM POWER ELECTRONICS ENGINEER documented as of this encounter Care Teams Systems Operator Relationship Specialty Start Date End Date Elsewhere, Pcp PCP - General Internal Medicine 04/24/23 documented as of this encounter
--- OUTSIDE RECORDS SUMMARY | 2023-06-29 11:38 | XMS_ITS | Encounter Summary ---
Author Name Unknown Organization [facility] Address [address] [place] [address] Care Team Providers Care Senior Product Marketing Manager Name Role Phone Elsewhere, Pcp Primary Care Provider Unavailabl e Reason for Visit * Reason Onset Date Comments Post Hospital Follow-up 04/28/2023 Hospital Copd RT 24-48Hr post discharge call Encounter Details Date Type Department Care Team (Latest Contact Info) Description 04/28/2023 Clinical Communication [facility], [facility], [facility], Third Floor [address] [place] [phone] Radha Davidson, R.R.T., L.R.T. Post Hospital Follow-up (Hospital Copd RT 24-48Hr post discharge call) Social History Tobacco Use Types Packs/Day Years Used Date Smoking Tobacco: Every Day Cigarettes 1 55 Started: 03/06/1975 Smokeless Tobacco: Never Alcohol Use Standard Drinks/Week Comments Yes 0 (1 standard drink = 0.6 oz pur e alcohol) [facility] Utilities Answer Date Recorded In [...] Never 07/20/2019 How often do you attend presybeterian or orthodox serv ices? Never 07/20/2019 Active Member of [...] Answer Date Recorded PHQ-2 Score 2 04/29/2019 [facility] of Occupat ional Health - Occupational [...] Date Recorded Dental: Regular Dentist Unknown 07/24/19 Housing Stability Answer Date Recorded What is your living situation today? I have a [facility] place to live 04/24/2023 Education Answer Date Recorded What is the highest level of school you have completed or the highest degree you have received? Associate degree: academic program 02/12/2019 Sex and Gender Information Value Date Recorded Sex Assigned at Female 05/07/2023 12:13 PM TEST OPERATOR Gender Identity Female 07/20/2019 7:51 PM CDT Sexual Orientation Straight 07/20/2019 7: 51 PM CDT documented as of this encounter Miscellaneous Notes * Telephone Encounter - Radha Davidson R.R.T., L.R.T. - 04/28/2023 1:00 PM TEST OPERATOR Hospital COPD Respiratory Therapist Phone Call Follow-up: 24-72 hours Prednisone/Antibiotics for Exacerbation Management: Obtained and taken as prescribed. Current COPD Inhaled Medications: Taken as prescribed. Albuterol: HFA as needed LAMA/LABA: Stiolto Respimat prescribed 2 puffs once a day not obtained yet from pharmacy. May be ready sometime today Bronchial Hygiene: minimally productive cough Oxygen: worn with activity Noninvasive Positive Airway Pressure:none Smoking Cessation: per patient no cigarette smoked since being discharged COPD Exacerbation Symptom Identification Reviewed: Change in Dyspnea Change in Cough Change in Secretions Self-Care Plan (Trifold) Appointment Reminders: Primary Care Provider - next week. PFTS, and Oxygen titration study with follow-up COPD Clinic- May 22 OPERATOR documented in this encounter Plan of Treatment Upcoming Encounters Date Type Department Care Team (Late st Contact Info) Description 07/05/2023 9:30 AM CDT Appointment Department of Laboratory Medicine and Pathology, [facility], in [place], [place] [address] [place] [address] Dilcia Ingram D.O. [address] [place] [phone] 07/05/2023 10:30 AM CDT Hospital Encounter Department of Radiology, [facility], in [place], [place] [address] [place] [address] Dilcia Ingram D.O. [address] [place] [phone] 07/05/2023 1:00 PM CDT Comprehensive Visit Department of Vascular Medicine in [place], [place] [address] [place] [address] Isaiah Manrique M.D. [address] [place] [phone] documented as of this encounter Visit Diagnoses Not on filedocumented in this encounter Additional Health Concerns Assessment Noted Time PHQ-9 Depression Total Score: 6 04/29/19 20 12:40 PM TEST OPERATOR documented as of this encounter Care Teams Senior Product Marketing Manager Relationship Specialty Start Date End Date Elsewhere, Pcp PCP - General Internal Medicine 04/24/23 documented as of this encounter
--- OUTSIDE RECORDS SUMMARY | 2023-06-29 11:39 | XMS_ITS | Encounter Summary ---
Author Name Unknown Organization [facility] Address [address] [place] [address] Care Team Providers Care Barge Loader Name Role Phone Elsewhere, Pcp Primary Care Provider Unavailabl e Reason for Referral * Outpatient (Routine) - Closed Specialty Diagnoses / Procedures Referred By Carey escobar Referred To Contact Nicotine Dependence Dino Castillo M.A. [facility] Referral ID Status Reason Start Date Expiration Date Visits Re quested Visits Authorized [id number] Closed 04/24/2023 10/23/2024 1 1 Scheduling Instructions Would like a phone follow up first week of may any day and preferable food mobile driver appointments. Thank you! F TOXICOLOGIST Reason for Visit * Reason Onset Date Comments Follow-up Orders 04/24/2023 New Med Request 04/24/2023 Encounter Details Date Type Department Care Team (Latest Contact Info) Description 04/24/2023 Clinical Communication Department of Nicotine Dependence, [facility], in [place], [place] [address] [place] [address] Dino Castillo M.A. Follow-up Orders; New Med Request Social History Tobacco Use Types Packs/Day Years Used Date Smoking Tobacco: Every Day Cigarettes 1 55 Started: 03/06/1975 Smokeless Tobacco: Never Alcohol Use Standard Drinks/Week Comments Yes 0 (1 standard drink = 0.6 oz pur e alcohol) [facility] Utilities Answer Date Recorded In the [...] Never 07/20/2019 How often do you attend druze or synagogue serv ices? Never 07/20/2019 Active Member of [...] Answer Date Recorded PHQ-2 Score 2 04/29/2019 [facility] of Occupat ional Health - Occupational Stress [...] a [facility] place to live 04/24/2023 Education Answer Date Recorded What is the highest level of school you have completed or the highest degree you have received? Associate degree: academic program 02/12/2019 Sex and Gender Information Value Date Recorded Sex Assigned at Female 05/07/2023 12:13 PM STAFF TOXICOLOGIST Gender Identity Female 07/20/2019 7:51 PM CDT Sexual Orientation Straight 07/20/2019 7: 51 PM CDT documented as of this encounter Miscellaneous Notes * Telephone Encounter - Dino Castillo M.A. - 04/24/2023 11:15 AM STAFF TOXICOLOGIST Nicotrol nasal spray with refills [place], [place] F TOXICOLOGIST documented in this encounter Plan of Treatment Upcoming Encounters Date Type Department Care Team (Late st Contact Info) Description 07/05/2023 9:30 AM CDT Appointment Department of Laboratory Medicine and Pathology, [facility], in [place], [place] [address] [place] [address] Dilcia Ingram D.O. [address] [place] [address] 07/05/2023 10:30 AM CDT Hospital Encounter Department of Radiology, [facility], in [place], [place] [address] [place] [address] Dilcia Ingram D.O. [address] [place] [phone] 07/05/2023 1:00 PM CDT Comprehensive Visit Department of Vascular Medicine in [place], [place] [address] [place] [address] Isaiah Manrique M.D. [address] [place] [phone] Scheduled Referrals Name Type Priority Associated Diagnoses Order Schedule Nicotine Dependence office visit (clinic) Outpatient Referral Routine Expected: 05/15/2023 (Approximate), Expires: 07/22/2024 documented as of this encounter Visit Diagnoses Not on filedocumented in this encounter Additional Health Concerns Infection Onset Date Last Indicated Resolved Time COVID19 Pending 04/24/2023 04/24/2023 04/24/2023 3 :06 AM STAFF TOXICOLOGIST Assessment Noted Time PHQ-9 Depression Total Score: 6 04/29/19 20 12:40 PM STAFF TOXICOLOGIST documented as of this encounter Care Teams Barge Loader Relationship Specialty Start Date End Date Elsewhere, Pcp PCP - General Internal Medicine 04/24/23 documented as of this encounter
--- OUTSIDE RECORDS SUMMARY | 2023-06-29 11:39 | XMS_ITS | Encounter Summary ---
Author Name Unknown Organization [facility] Address [address] [place] [address] Care Team Providers Care Sheet Rock Installer Name Role Phone Elsewhere, Pcp Primary Care Provider Unavailabl e Encounter Details Date Type Department Care Team (Latest Contact Info) Description 04/26/2023 Clinical Communication Department of Pulmonary Rehabilitation in [place], [place] [address] [place] [address] Krupa Bates M.D. [address] [place] [phone] Social History Tobacco Use Types Packs/Day Years Used Date Smoking Tobacco: Every Day Cigarettes 1 55 Started: 03/06/1975 Smokeless Tobacco: Never Alcohol Use Standard Drinks/Week Comments Yes 0 (1 standard drink = 0.6 oz pur e alcohol) [facility] Utilities Answer Date Recorded In the past 12 months has [facility] [employer], gas, oil, or water [employer] threatened to shut off services in your [...] Never 07/20/2019 How often do you attend voodoo or pentecostalism serv ices? Never 07/20/2019 Active Member of [...] Answer Date Recorded PHQ-2 Score 2 04/29/2019 [facility] [place] of Occupat ional Health - Occupational Stress [...] your [facility] situation today? [facility] 04/24/2023 Education Answer Date Recorded What is the highest level of school you have completed or the highest degree you have received? Associate degree: academic program 02/12/2019 Sex and Gender Information Value Date Recorded Sex Assigned at Female 05/07/2023 12:13 PM ONLINE MERCHANDISING MANAGER Gender Identity Female 07/20/2019 7:51 PM CDT Sexual Orientation Straight 07/20/2019 7: 51 PM CDT documented as of this encounter Plan of Treatment Upcoming Encounters Date Type Department Care Team (Late st Contact Info) Description 07/05/2023 9:30 AM CDT Appointment Department of Laboratory Medicine and Pathology, [facility] in [place], [place] [address] [place] [address] Dilcia Ingram D.OJustin [address] [place] [phone] 07/05/2023 10:30 AM CDT Hospital Encounter Department of Radiology, [facility] in [place], [place] [address] [place] [address] Dilcia Ingram D.OJustin [address] [place] [phone] 07/05/2023 1:00 PM CDT Comprehensive Visit Department of Vascular Medicine in [place], [place] [address] [place] [address] Isaiah Manrique M.D. [address] [place] [phone] documented as of this encounter Visit Diagnoses Not on filedocumented in this encounter Additional Health Concerns Assessment Noted Time PHQ-9 Depression Total Score: 6 04/29/19 20 12:40 PM ONLINE MERCHANDISING MANAGER documented as of this encounter Care Teams Sheet Rock Installer Relationship Specialty Start Date End Date Elsewhere, Pcp PCP - General Internal Medicine 04/24/23 documented as of this encounter
--- OUTSIDE RECORDS SUMMARY | 2023-06-29 11:39 | XMS_ITS | Encounter Summary ---
Author Name Unknown Organization [facility] Address [address] [place] [address] Care Team Providers Care Subcontract Administrator Name Role Phone Elsewhere, Pcp Primary Care Provider Unavailabl e Reason for Visit * Reason Onset Date Comments Triage 04/25/2023 Rafael Lopez, # [phone] Encounter Details Date Type Department Care Team (Latest Contact Info) Description 04/25/2023 Clinical Communication Department of Cardiovascular Medicine in [place], [place] [address] [place] [address] River GuideZachary M.D. Triage (Rafael Lopez, # [phone]) Social History Tobacco Use Types Packs/Day Years Used Date Smoking Tobacco: Every Day Cigarettes 1 55 Started: 03/06/1975 Smokeless Tobacco: Never Alcohol Use Standard Drinks/Week Comments Yes 0 (1 standard drink = 0.6 oz pur e alcohol) [facility] Utilities Answer Date Recorded In the past 12 months has [employer], gas, oil, or water [employer] threatened to shut off services in your [...] Never 07/20/2019 How often do you attend confucianism or cheondoism serv ices? Never 07/20/2019 Active [...] Answer Date Recorded PHQ-2 Score 2 04/29/2019 [facility] of Occupat ional Health - Occupational [...] your living situation today? I have a [facility] place to live 05/17/2023 Education Answer Date Recorded What is the highest level of school you have completed or the highest degree you have received? Associate degree: academic program 02/12/2019 Sex and Gender Information Value Date Recorded Sex Assigned at Female 05/07/2023 12:13 PM COMPOSITE BOAT BUILDER Gender Identity Female 07/20/2019 7:51 PM CDT Sexual Orientation Straight 07/20/2019 7: 51 PM CDT documented as of this encounter Progress Notes * Lorri Chavarria R.N. - 04/27/2023 8:02 AM CST Cardiology Triage Record Review The following information has been collected from the medical record. It is not a comprehensive summary, and has not been verified with the patient. The Appointment Triage Team does not establish a relationship with the patient, nor manage the patient's care outside of an initial review for the purposes of an appointment triage. For any questions, please contact the patient's primary provider. Referring Department: Pulm Clinical Question: Order: Previous [place] stress test positive for ischemia in mid and apical inferior wall (2021), never followed up. Now having symptoms of angina. Inpatient Cardiology consult service recommended outpatient follow-up. Cardiac History: Pertinent Medical/Surgical History: HTN HLD CVA Tobacco Testing/Consultations: Overnight ox CT Chest Pulm O2 titration PFTs Pulm Cons Stress echo Dismissal Summary: 04/26/23 ...On 04/25, Ms. Allison developed chest pressure radiating down left arm. There were no associated EKG changes, and 0-hr, 2-hr, and 6-hr troponins remained within normal limits. Ms. Allison had a mildly positive nuclear medicine stress test in 2021 which showed mid- and apical inferior wall ische sheron. Unfortunately, there was no further follow up after this nuclear medicine stress test. We discussed her symptoms and prior positive stress test with Cardiology Consult Service. They recommended outpatient dobutamine stress test and Cardiology follow-up within one month. We will arrange for these appointments to occur at [facility]. EC04/25/23 Sinus rhythm Premature ventricular complexes Otherwise normal ECG When compared with ECG of 25-APR-2023 06:44, Premature ventricular complexes are now present CXR: 04/24/23 Since 12/24/2018, new hazy ill-defined opacities throughout the bilateral lung bases which could beseen in the setting of developing infectious/inflammatory process. Remainder is not significantly changed. Vascular calcifications. Chest is otherwise negative. Labs: Lab Results Component Value Date WBC 13.4 (H) 04/26/2023 HGB 13.7 04/26/2023 HCT 42.1 04/26/2023 MCV 96.1 04/26/2023 PLT 327 04/26/2023 Lab Results Component Value Date NA 137 04/26/2023 KSERUM 4.9 04/26/2023 KPLASMA 3.9 04/24/2023 CL 99 04/26/2023 BICARB 28 04/26/2023 CREATININE 0.63 04/26/2023 EGFRBLKAA >90 02/12/2019 EGFRNONBLKAA >90 02/12/2019 EGFR >90 04/26/2023 BUN 19 04/26/2023 ANIONGAP 10 04/26/2023 GLUCOSE 95 04/26/2023 CALCIUM 9.3 04/26/2023 Lab Results Component Value Date CHOL 153 04/25/2023 Lab Results Component Value Date HDL 68 04/25/2023 Lab Results Component Value Date LDLCALC 70 04/25/2023 Lab Results Component Value Date TRIG 81 04/25/2023 OSMR: Care Everywhere OSITE BOAT BUILDER documented in this encounter Plan of Treatment Upcoming Encounters Date Type Department Care Team (Late st Contact Info) Description 07/05/2023 9:30 AM CDT Appointment Department of Laboratory Medicine and Pathology, [facility], in [place], [place] [address] [place] [address] Dilcia Ingram D.O. [address] [place] [phone] 07/05/2023 10:30 AM CDT Hospital Encounter Department of Radiology, [facility], in [place], [place] [address] [place] [address] Dilcia Ingram D.O. [address] [place] [phone] 07/05/2023 1:00 PM CDT Comprehensive Visit Department of Vascular Medicine in [place], [place] [address] [place] [address] Isaiah Manrique M.D. [address] [place] [phone] documented as of this encounter Visit Diagnoses Not on filedocumented in this encounter Additional Health Concerns Assessment Noted Time PHQ-9 Depression Total Score: 6 04/29/19 20 12:40 PM COMPOSITE BOAT BUILDER documented as of this encounter Care Teams Subcontract Administrator Relationship Specialty Start Date End Date Elsewhere, Pcp PCP - General Internal Medicine 04/24/23 documented as of this encounter
--- OUTSIDE RECORDS SUMMARY | 2023-06-29 11:39 | XMS_ITS | Encounter Summary ---
Author Name Unknown Organization [facility] Address [address] [place] [id number] Care Team Providers Care Chemical Blender Name Role Phone Elsewhere, Pcp Primary Care Provider Unavailabl e Encounter Details Date Type Department Care Team (Late st Contact Info) Description 04/24/2023 Orders Only Division of Pulmonary Medicine in [place], [place] [address] [place] [phone] Dawn Rios M.D. [address] [place] [phone] Social History Tobacco Use Types Packs/Day Years Used Date Smoking Tobacco: Every Day Cigarettes 1 55 Started: 03/06/1975 Smokeless Tobacco: Never Alcohol Use Standard Drinks/Week Comments Yes 0 (1 standard drink = 0.6 oz pur e alcohol) [facility] Utilities Answer Date Recorded In the past 12 months has [facility] [employer], gas, oil, or water [employer] threatened to shut off services in your home? No 05/07/2023 Humiliation, Afraid, Rape, and Kick questionnair e [...] Never 07/20/2019 How often do you attend caodaism or pentecostal serv ices? Never 07/20/2019 Active Member of [...] Answer Date Recorded PHQ-2 Score 2 04/29/2019 [facility] [place] [facility] Occupat ional Health - Occupational Stress [...] the money to buy more. Never true 05/07/19 24 Within the past 12 months, t he food you bought just didn't last and you didn't have money to get more. Never true 05/07/2023 PRAPARE - Transportation Answer Date Re corded In the past 12 months, has l ack of transportation kept you from medical appointments or from getting medications? No 05/2023 In the past 12 months, has l ack of transportation kept you from meetings, work, or from getting things needed for daily living? No 05/07/2023 Depression Answer Date Recor ded PHQ-9 Total [...] your living situation today? I have a [facility] place to live 05/07/2023 Education Answer Date Recorded What is the highest level of school you have completed or the highest degree you have received? 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 [address] [place] [phone] 07/05/2023 10:30 AM CDT Hospital Encounter Department of Radiology, [facility] in [place], [place] [address] [place] [phone] Dilcia Ingram D.O. [address] [place] [phone] 07/05/2023 1:00 PM CDT Comprehensive Visit Department of Vascular Medicine in [place], [place] [address] [place] [phone] Isaiah Manrique M.D. 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
--- OUTSIDE RECORDS SUMMARY | 2023-06-29 11:39 | XMS_ITS | Encounter Summary ---
Author Name Unknown Organization [facility] Address [address] [place] [address] Care Team Providers Care Merchandising Manager Name Role Phone Elsewhere, Pcp Primary Care Provider Unavailabl e Reason for Visit * Reason Comments Shortness of Breath * Auth/Cert (Routine) Specialty Diagnoses / Procedures Referred By Carey t Referred To Contact Diagnoses Pneumonia Chronic Obstructive Pulmonary Disease Exacerbation (HCC) Shortness Of Breath Procedures ADMIT TO INPATIENT Referral ID Status Reason Start Date Expiration Date Visits Re quested Visits Authorized [id number] 1 1 Encounter Details Date Type Department Care Team (Late st Contact Info) Description 04/24/2023 1:49 AM ESCALATOR INSTALLER - 04/26/2023 1:30 PM ESCALATOR INSTALLER Emergency [facility], [facility], Third Floor [address] [place] [phone] Silvia Harris M.D., M.S. [address] [place] [address] [phone] Zach Erickson M.D. [address] [place] [address] [phone] Rola Cartwright M.D. [address] [place] [address] [phone] Pneumonia (Primary Dx); Shortness Of Breath; Chronic Obstructive Pulmonary Disease Exacerbation (HCC); Nicotine Dependence Cigarettes With Withdrawal; Chronic Obstructive Pulmonary Disease (HCC); Stroke (HCC) Discharge Disposition: Home or Self Care Social History Tobacco Use Types Packs/Day Years Used Date Smoking Tobacco: Every Day Cigarettes 1 55 Started: 03/06/1975 Smokeless Tobacco: Never Tobacco Cessation:Ready to Q uit: Not Asked; Counseling Given: Not Answered Alcohol Use Standard Drinks/Week Comments Yes 0 (1 standard drink = 0.6 oz pur e alcohol) [facility] Utilities Answer Date Recorded In the past 12 months has e [email or web address], gas, oil, or water [employer] threatened to shut off services in your [...] Never 07/20/2019 How often do you attend protestant or moravian serv ices? Never 07/20/2019 Active Member of [...] Answer Date Recorded PHQ-2 Score 2 04/29/2019 [facility] [place] of Occupat ional Health - Occupational Stress [...] your living situation today? I have a [facility] place to live 04/24/2023 Education Answer Date Recorded What is the highest level of school you have completed or the highest degree you have received? Associate degree: academic program 02/12/2019 Sex and Gender Information Value Date Recorded Sex Assigned at Female 05/07/2023 12:13 PM ESCALATOR INSTALLER Gender Identity Female 07/20/2019 7:51 PM CDT Sexual Orientation Straight 07/20/2019 7: 51 PM CDT documented as of this encounter Last Filed Vital Signs Vital Sign Reading Time Taken Comments Blood Pressure 172/79 04/26/2023 12:20 PM ESCALATOR INSTALLER Pulse 83 04/26/2023 12:20 PM ESCALATOR INSTALLER Temperature 36.6 ??C (97.9 ??F) 04/26/2023 12:[address] Respiratory Rate 16 04/26/2023 12:20 PM ESCALATOR INSTALLER Oxygen Saturation 91% 04/26/2023 12:20 PM ESCALATOR INSTALLER Inhaled Oxygen Concentration - - Weight 78 kg (171 lb 15.3 oz) 04/24/2023 9:30 AM ESCALATOR INSTALLER Height 153.4 cm (5' 0.39) 04/24/2023 4:35 AM CS T Body Mass Index 33.15 04/24/2023 4:35 AM ESCALATOR INSTALLER documented in this encounter Discharge Summaries * Krupa Bates M.D. - 04/26/2023 12:11 PM CST DISCHARGE SUMMARY BRIEF OVERVIEW Hospital: [facility] Discharge Provider: Rola Cartwright M.D. Primary Team: [facility] Pulmonary Medicine Hospital Primary Care Provider: Rupali Tate M.D. ([facility]) Primary Care Provider Primary Care Provider Admission Date: 04/24/2023 Discharge Date: 04/26/2023 PRINCIPAL DIAGNOSIS Pneumonia SECONDARY DIAGNOSES Principal Problem: Pneumonia Active Problems: Hypoxia Abuse Tobacco Smoking Counseling Smoking Cessation Atherosclerotic Heart Disease [place] Coronary Artery With Other Forms Angina Pectoris (Stable Angina/Angina Of Exertion) (HCC) Hypertension Essential Primary Resolved Problems: Pain Chest Hypertensive Urgency DISCHARGE DISPOSITION Home ACTIVE ISSUES REQUIRING FOLLOW UP Recommendations for Outpatient Provider: - We suspect patient has underlying essential hypertension as she was consistently hypertensive while hospitalized. We started amlodipine 5 mg daily and valsartan 80 mg daily. Please continue to up-titrate anti-hypertensives in the outpatient setting. Please obtain BMP at follow-up appointment to ensure stability of renal function and electrolytes. - Ensure patient is scheduled for follow-up with [facility]. She had a positive Inpatient teamhas ordered an outpatient Cardiology office visit with dobutamine stress test. (These appointments were in triage at the time of dismissal.) - Patient was prescribed 1 L oxygen with activity and 1 L oxygen with sleep. Anticipate that this will be a short-term oxygen need. We will repeat testing at her Pulmonology follow up in May to determine if she still needs supplemental oxygen. - Please repeat lipid panel in 1-3 months. We would favor targeting LDL goal < 55 given her high-risk for atherosclerotic cardiovascular disease. Outpatient Follow-Up: - Primary Care Provider: Dr. Tate (May 02 at 2:30 PM, [facility]) - [facility] Counselor for smoking cessation. - [facility] for diagnostic clarification as to whether patient has underlying COPD (May 22). Will have PFT's, oxygen titration, and overnight oximetry performed at this visit. - [facility] for further work-up of positive stress test, symptoms suggestive of stable angina. This appointment was in triage at time of dismissal; patient will be contacted to schedule. OUTPATIENT FOLLOW UP Scheduled Appointments 05/09/2023 8:00 AM BETZY COUNSELOR 02 [facility] 18 Nicotine Dependence 05/22/2023 2:00 PM OXIMETRY LAB 01 [facility] 18E PUL Pulmonary Medicine 05/22/2023 3:[address] [facility] 846 Radiology 05/23/2023 8:30 AM O2 LAB 01 [facility] 18[address] PUL Pulmonary Medicine 05/23/2023 10:30 AM PFT LAB 01 [facility] 18[address] PUL Pulmonary Medicine 05/23/2023 1:30 PM Anum Jacobson, AMEENA, C.N.P., D.N.P. Pulmonary Medicine For appointment details refer to your Patient Appointment Guide. 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 The patient reported acute onset of dyspnea with worsening on exertion, prompting call to EMS. On arrival to the [facility] ED, the patient was afebrile, mildly hypertensive and oxygenating in the 80s, requiring supplemental oxygen via nasal cannula. The patient was noted to have a leukocytosis of 17.2 and new hazy ill-defined opacities throughout the bilateral lung bases. Given concern for COPD exacerbation and pneumonia, the patient was admitted to the pulmonology service on 04/24. On arrival to the floor, the patient was hemodynamically stable. She was continued on pulmonary hygiene, steroids and IV antibiotics. With time, her oxygen needs decreased since she was saturating adequately on room air while at rest. She did desaturate to the mid- to upper-80s with activity and with sleep, so she was prescribed 1 L oxygen to use with activity and 1 L for sleep. She was transitioned to oral cefdinir and doxycycline for treatment of her community acquired pneumonia. She was dismissed on a Stiolto LAMA/LABA inhaler for management of presumed COPD. She will follow-up with Pulmonology in the outpatient setting for PFTs and further evaluation. Through hospital stay, patient met with a COPD educator in addition to nicotine dependence counseling. She has trialed Chantix and Wellbutrin in the past without improvement in her symptoms. She was not interested in being prescribed either Chantix or Wellbutrin on dismissal but did request nicotine nasal spray, which was provided. On 04/25, Ms. Allison developed chest pressure radiating down left arm. There were no associated EKG changes, and 0-hr, 2-hr, and 6-hr troponins remained within normal limits. Ms. Allison had a mildly positive nuclear medicine stress test in 2021 which showed mid- and apical inferior wall ischemia. Unfortunately, there was no further follow up after this nuclear medicine stress test. We discussed her symptoms and prior positive stress test with Cardiology Consult Service. They recommended outpatient dobutamine stress test and Cardiology follow-up within one month. We will arrange for these appointments to occur at [facility]. The appointment request was in triage at time of discharge,and patient will be contacted to schedule these appointments. The patient also experienced persistent hypertension in the 180s throughout her hospitalization and was started on valsartan 80 mg daily and amlodipine 5 daily. We repeated lipid panel while inpatient, and LDL was not at goal < 55. Her atorvastatin was increased to 80 mg daily. Ms. Allison was discharged to home in stable condition on 04/26. She will take oral cefdinir and doxycycline twice daily for 5-day course (end date: 04/28). CONSULTS ORDERED DURING THIS ADMISSION IP CONSULT TO INTERNAL MEDICINE NICOTINE DEPENDENCE IP CONSULT TO CARE MANAGEMENT CONDITION AT DISCHARGE stable Discharge instructions were provided to the patient and caregiver(s). Total time spent in discharge services today: 30 minutes. Krupa Bates M.D. PGY-2, Internal Medicine Personal Pager: [phone] LATOR INSTALLER Associated attestation - Rola Cartwright M.D. - 04/26/2023 12:18 PM ESCALATOR INSTALLER I saw the patient on the day of discharge and agree with the discharge plans and disposition. documented in this encounter Discharge Instructions * Discharge Instructions* Krupa Bates M.D. - 04/25/2023 12:47 PM ESCALATOR INSTALLER You were discharged from the [facility] Pulmonary Medicine Hospital Service. Please identify this service name if you call with questions after hospitalization. Patient Instructions: - use Stiolto inhaler daily - please continue to work on tobacco cessation - please take valsartan 80 mg and amlodipine 5 mg daily - take oral prednisone 40 mg, cefdinir 300 mg, doxycycline 100 mg twice daily until 04/28/2023 - if you have chest pain please call 911 and take your nitroglycerin LATOR INSTALLER * Attachments The following attachments cannot be sent through Care Everywhere. * Amlodipine (By mouth) ([place]ese) * Cefdinir (By mouth) ([place]) * Doxycycline (By mouth) ([place]) * Nicotine (Into the nose) ([place]) * Nitroglycerin (By mouth) ([place]) * Prednisone (By mouth) ([place]) * Tiotropium/Olodaterol (By breathing) ([place]) * Valsartan (By mouth) ([place]) documented in this encounter Medications at Time of Discharge [...] mouth at bedtime. 30 tablet 11 04/25/2023 cefdinir (OMNICEF) 300 mg capsuleIndications:Re spiratory tract infection, community acquired Take 1 capsule (300 mg total) by mouth 2 (two) times a day before breakfast and dinner for 3 days Indications: Respiratory tract infection, community acquired. 6 capsule 04/26/2023 04/29/2023 doxycycline monohydrate (MONODOX) 100 mg capsuleIndications:Re spiratory tract infection, healthcare associated Take 1 capsule (100 mg total) by mouth 2 (two) times a day before breakfast and dinner for 3 days Indications: Respiratory tract infection, healthcare associated. 6 capsule 04/26/2023 04/29/2023 predniSONE (DELTASONE) 20 mg tablet Take 2 tablets (40 mg total) by mouth daily for 3 doses. 6 tablet 04/26/2023 04/29/2023 albuterol (PROVENTIL HFA,VENTOLIN HFA) 90 mcg/actuation inhaler Inhale 2 puffs every 4 (four) hours as needed for wheezing or shortness of breath. 05/23/2023 nicotine (NICOTROL NS) 10 mg/mL nasal spray 1-2 sprays every 1-2 hrs. as needed for cravings 40 mL 04/24/2023 05/23/2023 nicotine (NICOTROL NS) 10 mg/mL nasal spray Use 1 spray in each nostril every 1 to 2 hours or as needed for tobacco withdrawal symptoms. Not to exceed 40 doses (80 sprays) per day 10 mL 3 04/25/2023 05/23/2023 documented as of this encounter Progress Notes * Lyric Mendoza R.R.T., MarceloRNorma. - 04/26/2023 7:13 AM CST 04/26/23 0712 Nocturnal Oxygen Assessment Asleep Room Air SpO2 87 Percent Oxygen Flow Rate 1 L/min (via Nasal Cannula) Nocturnal oxygen assessment completed. Patient's SpO2 was at or below 88% for 5 minutes or greater.Any desaturations on trend lower than patient SpO2 is considered artifact. Electronically signed by: Lyric Mendoza R.R.T., L.R.T. 04/26/23 7:13 AM ESCALATOR INSTALLER LATOR INSTALLER * Chuck Dickson - 04/25/2023 11:11 AM CST CHEST PROGRESS NOTE SUBJECTIVE Ms. Allison is a 62-year-old woman admitted with presumed COPD exacerbation (no PFTs for formal diagnosis) and possible community-acquired pneumonia. 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 Interval Events: This morning after getting her DuoNeb she experienced acute onset left chest heaviness and pain in her left shoulder and arm rated a 6/10 pain. Not affected by breathing, coughing, shoulder movement,or position. She had a tension type headache (bilateral frontal and left , constant pressure). No nausea, vomiting, diaphoresis, lightheadedness, vision changes. 2 ECGs and troponins were negative and unchanging at 2 hours. Chest pain decreased from 6 to 4 to 2 with 2 x nitrates and was resolved by morning rounds. Of note she had some left sided chest pressure in 2021 with negative troponins and she subsequentlyunderwent a nuclear stress test, which reported a small area of mild reversibility within the mid and apical inferior wall compatible with ischemia with a normal ejection fraction of 70% per Dr Sampson Shankar's note on 04/02/2021. This was not followed up despite recommendations due to COVID and supply chain issues. OBJECTIVE VITAL SIGNS Temperature: [36.3 ??C-36.8 ??C] 36.8 ??C Resp Rate: [18-20] 18 Blood Pressure: (118-186)/(56-84) 138/69 SpO2: [89 %-97 %] 95 % Flow Rate (L/min): [0 L/min] 0 L/min Pulse Rate: [86-107] 86 PHYSICAL EXAM General: Woman, sitting up in bed, no acute distress HEENT: Head normocephalic and atraumatic. Pupils equal. Cardiovascular: S1 and S2, no murmurs or rubs, trace bilateral ankle edema. Skin warm and well perfused to touch. Pulmonary: Normal work of breathing on room air. No wheezes appreciated. Neuro: Alert and oriented. Answers questions appropriately. Moves extremities spontaneously. DIAGNOSTICS Tn baseline= 7 Tn 2 hour= 8 2 ECGs during and with resolution of chest pain showed no signs of ST changes or T inversions Hb= 12.8 WBC= 15 (down from 17.2) Plt= 319 Normal BNP Cr= 0.53 ASSESSMENT / PLAN Ms. Allison is a 62-year-old woman admitted with presumed COPD exacerbation (no PFTs for formal diagnosis) and possible community-acquired pneumonia. 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 Patient presented with acute hypoxemic respiratory failure thought to be in the setting of possibleCOPD (no formal PFT diagnosis). Patient does have a history of about 50 pack years of tobacco use and has previously been given a diagnosis of COPD. CXR showed hazy opacities in the bilateral lung bases. She is being treated for both COPD exacerbation and CAP. Respiratory status quickly improved and she was weaned to room air at rest. RT showed that she saturated 87% with exercise. We discussed that this would qualify her for home going oxygen with activity in this acute phase. We will plan to dismiss patient on a Stiolto inhaler until she can have pulmonology follow-up with formal PFT testing, Chest CT, overnight oximetry, and oxygen titration. Concerning her chest pain, clinically, we have a high suspicion for cardiac etiology especially in the context of her previous stress test suspicious for ischemia in 2021. We are reassured by her normal troponins and ECGs. Plan to follow up outpatient with cardiology. # Acute hypoxic respiratory failure - resolved # Possible Community-acquired pneumonia # Possible COPD Exacerbation # Tobacco use disorder, current - Oxygen therapy as needed for goal oxygenation 88-92% - DuoNebs 4 x daily - Prednisone 40 mg PO daily (end date 04/28) - Blood cultures - Sputum cultures - Antibiotics - oral cefdinir 300 mg twice daily (end date 04/28, 5 day course) - doxycycline 100 mg b.i.d. 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 Rola Patrick. [place] [phone] with any questions or concerns. LATOR INSTALLER Associated attestation - Rola Cartwright M.D. - 04/25/2023 5:00 PM ESCALATOR INSTALLER I saw the patient with the medical student. I was present for or re-performed the History of Present Illness. I saw and evaluated the patient, participating in the cooley portions of the service and didmedical decision making. I have reviewed the above documentation and agree or amended. The patient is improving from pneumonia and COPD exacerbation. We will plan for home oxygen and initiation of Stiolto. She will still need confirmation of her COPD diagnosis with PFTs in the clinic. The patient did have chest pain that is concerning for angina in the setting of active tobacco use and prior positive stress test. ECG shows no acute change. Troponin is normal. We will review with cardiology with a likely plan to be evaluated in the outpatient setting. We are unable to arrange or home oxygen today so will plan for dismissal tomorrow. * Radha Davidson R.R.T., L.R.T. - 04/25/2023 9:49 AM CST COPD RT subsequent visit. Education and demonstration provided on putting together Respimat inhaler, priming. positioning andadministering each puff from the inhaler. Patient able to teach and demonstrate back. Electronically signed by: Radha Davidson R.R.T., L.R.T. 04/25/23 9:51 AM ESCALATOR INSTALLER LATOR INSTALLER * Perla Lorenz M.D. - 04/24/2023 4:41 PM CST [facility] Pulmonary Medicine Hospital PROGRESS NOTE SUBJECTIVE Ms. Allison is a 62-year-old woman admitted with presumed COPD exacerbation (no PFTs for formal diagnosis) and possible community-acquired pneumonia. 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 Interval Events: - on room air this morning - met with tobacco cessation counselor Patient was feeling well this morning. She is currently on room air. In the past, patient has trialed Chantix and Wellbutrin for tobacco cessation. She did not like either of these medications. Patient requested nicotine nasal spray on dismissal. We will dismiss to home tomorrow if stable. I have reviewed the current medication list. OBJECTIVE VITAL SIGNS Temperature: [36.3 ??C-37.1 ??C] 36.6 ??C Heart Rate: [85-88] 88 Resp Rate: [14-22] 18 Blood Pressure: (131-173)/(44-79) 143/66 SpO2: [92 %-100 %] 93 % Flow Rate (L/min): [0 L/min-2 L/min] 0 L/min Height: [153.4 cm] 153.4 cm Weight: [78 kg] 78 kg BMI (Calculated): [33.1 kg/m??] 33.1 kg/m?? Pulse Rate: [82-101] 98 PHYSICAL EXAM General: Woman, sitting up in bed, no acute distress HEENT: Head normocephalic and atraumatic. Pupils equal. Cardiovascular: S1 and S2, no murmurs or rubs, trace bilateral ankle edema. Skin warm and well perfused to touch. Pulmonary: Normal work of breathing on room air. No wheezes appreciated. Neuro: Alert and oriented. Answers questions appropriately. Moves extremities spontaneously. DIAGNOSTICS I have personally reviewed the laboratory data and imaging since admission, and in/outs for past 72hours. ASSESSMENT / PLAN Ms. Allison is a 62-year-old woman admitted with presumed COPD exacerbation (no PFTs for formal diagnosis) and possible community-acquired pneumonia. 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 Patient presented with acute hypoxemic respiratory failure thought to be in the setting of possibleCOPD (no formal PFT diagnosis). Patient does have a history of about 50 pack years of tobacco use and has previously been given a diagnosis of COPD. With duo nebs and steroids, patient's respiratory status quickly improved and she was now saturating on room air. We will plan to dismiss patient on aLABA/LAMA inhaler until she can have pulmonology follow-up with formal PFT testing. In the meantime, we are also treating patient for possible community- acquired pneumonia given bibasilar opacities on CXR and leukocytosis. Transitioning to oral cefdinir and doxycycline this evening. # Acute hypoxic respiratory failure # Query COPD Exacerbation # Tobacco use disorder, current # Community-acquired pneumonia - Oxygen therapy as needed for goal oxygenation 88-92% - Duonebs 4x daily - RT oxygen assessment prior to dismissal to ensure no desaturation with walking - Systemic corticosteroids - S/p dexamethasone 10 mg in ED 04/24 - Prednisone 40 mg PO daily (end date 04/28) - Blood cultures - Sputum cultures - Antibiotics - s/p Ceftriaxone 2 g daily(04/24) --> oral cefdinir 300 mg twice daily (end date 04/28, 5 day course) - doxycycline 100 mg b.i.d. 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 Rola Patrick. [place] [phone] with any questions or concerns. Marleen Lorenz MD PGY-2, Internal Medicine LATOR INSTALLER * Queenie Arceo R.R.T., MarceloR.T. - 04/24/2023 4:11 PM CST 04/24/23 1610 Home Oxygen Assessment Rest/Awake Room Air SpO2 92 Percent Exercise/Activity Room Air SpO2 87 Percent Exercise/Activity with Oxygen SpO2 90 Percent (with 1L O2) Home DME O2 assessment performed (as pt is planned for d/c tmr). Patient did not require O2 at restbut needed 1L O2 via nasal cannula during activity. Contact RT if further assistance is required. Electronically signed by: Boris Arceo R.R.T., MarceloR.TJustin 04/24/23 4:12 PM ESCALATOR INSTALLER LATOR INSTALLER * Radha Davidson R.R.T., L.R.T. - 04/24/2023 2:23 PM CST [facility] Chronic Pulmonary Disease Clinical Specialist (RT) Initial Visit: COPD Admission for Acute hypoxic respiratory failure and COPD Exacerbation mMRC:2 ED/Hospitalization:0 Outpatient Exacerbation Frequency:0 PFT:none COPD Assessment Tool (CAT): 10 Current Home Inhaled Medications Prescribed: Albuterol: HFA used as needed Other: patient hasher granddaughter's nebulizer machine but no medication to use with it. Takes as Prescribed: yes Appropriate for COPD GOLD Classification: no Appropriate Technique(s): yes, fair. 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 Recommendations to Hospital Treatment Team:Nicotine Dependence Consult Hospital Inhaled Medications: DuoNebs four times a day . Albuterol nebulizer q 4 hrs as needed. Recommendations for Discharge: Pulmonary Function Test In 4-6 weeks after exacerbation resolution. Pulmonary COPD Clinic Inhaled Medications: Per Chest service's recommendations: Stiolto Respimat 2 puffs once a day .Albuterol HFA 2 puffs every 4 hrs as needed. Patient requesting prn albuterol or DuoNebs medication script for use with her nebulizers during future exacerbations. LATOR INSTALLER * Tammie Dewitt, Pharm.D., R.Ph. - 04/24/2023 8:24 AM CST Pharmacist Progress Note Reason for admission: COPD exacerbation and suspected pneumonia PMH: Stroke 2019, HLD, AAA, atherosclerotic aortic disease OBJECTIVE Renal Status: Serum creatinine: 0.54 mg/dL Estimated creatinine clearance: unable to calculate (no current weight) VTE Prophylaxis: enoxaparin Medication Reconciliation: Med history per RN - New: ceftriaxone, doxycycline, Duoneb - Changed: varenicline increased ASSESSMENT / PLAN COPD exacerbation, PNA- Day 1 ceftriaxone/doxycycline and steroids. Stop date 04/28. Duoneb QID. Smoking cessation - Nicotine replacement prn and home varenicline. History of stroke, HLD - Continues aspirin (high dose per Neuro 08/29/19) and statin. Marleen Dewitt, PharmManny., R.Ph. [phone] LATOR INSTALLER documented in this encounter H&P Notes * Aurea García M.D. - 04/24/2023 6:11 AM CST RST Pulmonary Medicine Hospital Admission Note SUBJECTIVE CHIEF COMPLAINT Dyspnea HISTORY OF PRESENT ILLNESS Ms. Genevieve Allison is a 62 y.o. female who presents with acute hypoxic respiratory failure inthe setting of presumed COPD exacerbation (no documented PFT) and suspected hospital-acquired pneumonia. Past Medical History: 1. 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 Hyperlipidemia 3. Abdominal aortic aneurysm (less than 3 cm) 3. Atherosclerotic aortic disease ED Course: Vitals: Afebrile, hypertensive (142/67), heart rate 80s, oxygenating 90s on 2L O2 via nasal cannula Labs: Leukocytosis 17.2 (neutrophil predominant), hemoglobin 13.6, platelet 267. Cr 0.54 and glucose 141. Troponin nL. NT proBNP 94. D-dimer 323. COVID/influenza neg. Imaging: ECG normal sinus rhythm. CXR: New hazy ill-defined opacities throughout the bilateral lungbases which could be seen in the setting of developing infectious/inflammatory process. Interventions: Given concern for COPD exacerbation, duo nebs x2 and Dexamethasone 10 mg was given. Given concern for community-acquired pneumonia, ceftriaxone and doxycycline were given. The patient was titrated off oxygen at rest however when ambulating, patient desaturated to mid-80s and was placed back on oxygen via nasal cannula. The patient reports being in her usual state of health until approximately 9:00PM on 04/23/2022 when she developed acute onset of dyspnea while laying in bed. She reports attempting to ambulate around her room to the restroom and experiencing worsening dyspnea. She attempted to take her rescue albuterol inhaler however this did not provide relief of her symptoms. Due to worsening dyspnea, she called EMS. EN route to the ED, the patient received 1 DuoNeb with mild improvement. The patient was also noted to have a blood pressure of 200/100 in EMS and received 1 dose of nitroglycerin which patient reports also improved her symptoms. Of note, patient denied any chest pain, worsening cough or inc reased sputum production. She denied any paroxysmal nocturnal dyspnea, orthopnea or lower extremityedema. She denies any recent fevers, chills or night sweats. She denies any recent weight loss. Shedenies being around any sick contacts and reports feeling overall well until symptom onset at approximately 9:00 p.m. 04/23. The patient reports receiving a diagnosis of COPD approximately 4 years ago however has never completed pulmonary function testing. She states she uses a rescue albuterol inhaler at home for symptomswheezing and dyspnea. She reports using her inhaler approximately 2-3 weeks ago when she felt she was wheezing. Her inhaler typically relieves her symptoms. She reports this is the first hospitalization for symptoms of dyspnea. She reports a chronic cough and clear sputum production at baseline without worsening of either symptoms have this time. The patient reports a 50+ pack/year history of smoking and current tobacco use with approximately 10 cigarettes per week. She reports she started smoking at the age of [age] years old and has smoked cigarettes on and off since then. 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 She denies any alcohol use. 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 Active Home Medications Medication Sig Taking acetaminophen (TYLENOL) 500 mg tablet Take 1,000 mg by mouth as needed for pain. Yes albuterol (PROVENTIL HFA,VENTOLIN HFA) 90 mcg/actuation inhaler Inhale 2 puffs every 4 (four) hoursas needed for wheezing or shortness of breath. Yes aspirin, buffered, 325 mg tablet Take 1 tablet (325 mg total) by mouth daily. Yes atorvastatin (LIPITOR) 40 mg tablet Take 1 tablet (40 mg total) by mouth at bedtime. Yes ibuprofen (ADVIL,MOTRIN) 200 mg tablet Take 400 mg by mouth as needed for pain. OBJECTIVE VITAL SIGNS Temperature: [37.1 ??C] 37.1 ??C Heart Rate: [85-88] 88 Resp Rate: [14-22] 16 Blood Pressure: (131-158)/(44-67) 158/59 SpO2: [92 %-100 %] 99 % Flow Rate (L/min): [2 L/min] 2 L/min Height: [153.4 cm] 153.4 cm Pulse Rate: [82-91] 83 PHYSICAL EXAM Vitals: BP 158/59 (BP Location: Right arm;Upper, Patient Position: Sitting) Pulse 83 Temp 37.1 ??C (Oral) Resp 16 Ht 153.4 cm SpO2 99% BMI 31.02 kg/m?? Gen: Well appearing female. In no acute distress. HEENT: Without icterus or injection. Moist mucus membranes. Nasal cannula in nostrils. Pulm: Bibasilar crackles at lung bases bilaterally. Good chest wall excursion. No accessory muscle usage. CV: Regular rate and rhythm. Abd: Non-tender, non-distended. No palpable masses. Integ: No visible rashes. No bruises or skin lesions on exposed skin. MSK: No joint contractures or deformities. Normal flexion and extension of neck. PV: Warm, well-perfused. Without edema. Neuro: A&Ox3, No weakness of extremities. Moves all extremities spontaneously. Psych: Mood and affect congruent. Well-groomed. Appropriate and cooperative. DIAGNOSTICS I have reviewed the diagnostics from admission. ECG 04/24/2023: IMPRESSION: Poor data quality. Normal sinus rhythm. Normal ECG When compared with ECG of 12-FEB-2019 08:53, No significant change was found. Chest x-ray 04/24/2023: IMPRESSION: Since 12/24/2018, new hazy ill-defined opacities throughout the bilateral lung bases which could beseen in the setting of developing infectious/inflammatory process. Remainder is not significantly changed. Vascular calcifications. Chest is otherwise negative. 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 The patient presents with acute onset dyspnea and hypoxia with new oxygen requirement of 2 L oxygenvia nasal cannula. She reports chronic cough and clear sputum production however denies any recent worsening of either. She has not completed pulmonary function testing prior however endorses a 50+ pack/year history with current tobacco use. She states she previously was given a diagnosis of COPD and uses a rescue albuterol inhaler at home for wheezing and dyspnea. Given patient's acute change inbaseline dyspnea with new oxygen requirement, I suspect she has an presumed COPD exacerbation. She received dexamethasone and duo nebs in the ED with mild improvement. We will continue pulmonary hygiene, duoneb treatments and steroids. Given new hazy ill-defined opacities throughout bibasilar lung bases and leukocytosis of 17.2, there is concern for possible pneumonia. At this time, we will continue antibiotic treatment. # Acute hypoxic respiratory failure # COPD Exacerbation # Tobacco use disorder, current # Community-acquired pneumonia - Oxygen therapy as needed for goal oxygenation 88-92% - Duonebs 4x daily - Aerobika - Systemic corticosteroids - S/p dexamethasone 10 mg in ED 04/24 - Prednisone 40 mg PO daily (end date 04/28) - Blood cultures - Sputum cultures - Antibiotics - Ceftriaxone 2 g daily(end date 04/28 for 5-day therapy) - S/p doxycycline 100 mg in ED, will continue for 3-day therapy - Home Chantix 1 mg daily - Nicotine patch, gum, lozenges prn - Recommend smoking cessation - Recommend PFTs in outpatient setting - Covid/Influenza neg # 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 Please direct any questions to pulmonology service pager. LATOR INSTALLER Associated attestation - Rola Cartwright M.D. - 04/24/2023 4:54 PM ESCALATOR INSTALLER I saw and evaluated the patient, participating in the cooley portions of the service. I reviewed the resident/fellow???s note. I agree with the resident/fellow???s findings and plan. The patient is admitted with acute dyspnea in the setting of probable COPD. She has a significant leukocytosis which raises concern for COPD exacerbation with pneumonia. She is clinically improved this morning after starting antibiotics and steroids. We anticipate possible dismissal tomorrow. We will plan for outpatient pulmonary evaluation to confirm her COPD diagnosis. We will start LABA/LAMA inhaler to decrease the risk of exacerbation after she completes her prednisone and antibiotics. documented in this encounter Consult Notes * Casper Ramirez R.N. - 04/25/2023 10:32 AM CSTAssociated Order(s): IP CONSULT TO CARE MANAGEMENT Discharge Planning Assessment SUBJECTIVE Assessment Information Referral Source: vp clinical research Referral Name: Krupa Bates M.D. 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 Services Used: No Person(s) present during interview: Person(s) Present During Interview: patient History of Present Illness #1 Pneumonia Genevieve Allison is hospitalized in [id number] Finance/Insurance Primary insurance: [facility] [employer] Secondary insurance: N/A benefits: No Advance Directives Legal Decision Maker: Self Advance Directives: Power of It Security Administrator for finance, On file Advance Directives Status: Not Activated OBJECTIVE Baseline Functional Status Baseline Activities of Daily Living Mobility: Independent Dressing: Independent Feeding: Independent Bathing: Independent Grooming: Independent Toileting: Independent Behavior: Appropriate, Pleasant, Calm, Cooperative, Oriented Communication: Can write, Talks, Understands speaking, Understands [place]ese Shopping: Independent Medication Management: Independent Housekeeping: Independent Meal Prep: Independent Assistive Devices: Cellphone, Eyeglasses, Dentures Services/Resources: Snow removal Transportation: Independent to drive Managing Finances: Independent Baseline Services/Resources Primary care clinic and provider: Rupali Tate MD [address], [place] Services/Resources: Snow removal Additional Resources: none at this time Anticipated Needs Functional Status: None Assistive Devices: None Services/Resources: Snow removal Anticipated Modifications to the Patient's Home: None Transportation Needs: Independent to drive Does the patient need discharge transport arranged?: No Anticipated Discharge Destination[place] [facility] [place]AN Assessment: The vp clinical research met with Genevieve Allison to discuss her current hospitalization and home going needs. The patient was unaccompanied. The patient was a reliable historian. The role of RN CaseManager was reviewed. The patient, patient's , and patient's children reviewed her prior level of care and support system. The patient receives support from her and children. The patient described her living environment as a single level home with level entry. Housekeeping,grocery shopping, meal prep, and other household responsibilities have previously been completed bypatient. vp clinical research discussed the patient's potential needs at dismissal based on their home se tting, previous needs and responsibilities, homebound status, and relevant assessments with the patient and patient's . The patient will be safe and supported to return home with spouse when medically ready. Support will be provided by family. The patient demonstrated understanding when discussing her home going plans and anticipated needs. Nurse case liner met the patient to discuss dismissal planning. Genevieve was alert, oriented, and sitting up in bed. RN CM explained their role and purpose for their visit. The patient was agreeable todiscussion and actively participated in discharge planning. 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 At this time, the care team anticipates the patient will potentially require the following new service(s) to be set up: oxygen. After reviewing the patient's chart and meeting with the patient, the vp clinical research deemed the LACE+/readmission questions were not necessary. The patient reports understanding that she will dismiss from the hospital when medically stable. Pending hospital course and medical readiness, no barriers to dismissal have been identified at this time. Plan: The patient agrees with the following plan. Patient's anticipated discharge disposition is: Home to Self Care with DME Accepted and selected: Home oxygen will be provided by: Durable Medical Equipment - Admitted Since 04/24/2023 Service Provider elected Services Address Phone Fax Patient Preferred [facility] Services Durable Medical Equipment [phone] [phone] -- Contact: intake Portable tanks is not needed for transport to be delivered to the patient???s room prior to dismissal. Concentrator to be delivered and set up at patient???s home. NURSING: - Fax prescription to oxygen provider. - Fax any necessary clinical documentation supporting oxygen need including After Visit Summary andDME justification. - Arrange initial oxygen delivery to home. PRIMARY SERVICE: - Review and sign oxygen prescription and supporting documentation including After Visit Summary and DME justification prior to patient???s dismissal. CASE MANAGEMENT: - Will continue to follow. Transportation upon dismissal will be provided by family-- . vp clinical research recommended reaching out to family, friends, and neighbors for assistance. vp clinical research provided information regarding the dismissal process. vp clinical research placed or requested the following hospital-based consult orders and/or referrals: None. vp clinical research will continue to assess for homegoing needs with the interdisciplinary team. vp clinical research encouraged the patient to reach out with any questions/concerns. Signed by: Casper Ramirez R.N. 04/25/2023 LATOR INSTALLER * Dino Castillo M.A. - 04/24/2023 11:08 AM CSTAssociated Order(s): Nicotine Dependence consult (hospital) SUBJECTIVE Nicotine Dependence consult (hospital) Referring Provider: Aurea Gacría M.D. REASON FOR CONSULT Admitting Service: Pulmonary Medicine Reason for Consult: Tobacco Use Disorder HISTORY OF PRESENT ILLNESS Genevieve Allison is a 62 y.o. female who was seen at [place] and is being evaluated for tobacco use disorder. Patient has been a lifetime smoker with a pack history of 55 years. She used to smoke on average a pack a day and has in recent months cut down to 10 cigarettes weekly. 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 We discussed cognitive and behavioral strategies to cope with cravings and withdrawals and as well as replacement behaviors. Tobacco use history: Patient averages 1-2 cigarettes per day, and usually smokes within 60 minutes of waking. Genevieve started using tobacco at the age of 15. She has made several quit attempts with her longest period of abstinence being couple of years. Genevieve has tried stopping using various methods such as cold turkey , nicotine patches, nicotine gum, Buproprion, and Chantix . Patient did not find Chantix or Wellbutrin to be helpful in quitting smoking in the past. She reported the adverse side effect of nightmares on Chantix. The patient has experienced the following withdrawal symptoms: craving and desire to smoke. Motivation: Genevieve shares that she is somewhat motivated to stop using tobacco at this time. Her reasons to quit are to be able to live longer, to be around for family, to breathe better, to improve health, to avoid the bad smell of cigarettes, diagnosis of COPD, and no longer enjoys smoking. Perceived Barriers to quitting: Implementation of behavioral changes to sustain cessation. OBJECTIVE Patient states no contraindications to nicotine replacement. ASSESSMENT / PLAN 1. Tobacco use disorder Ms. Allison is not yet ready to make a plan for stopping. The patient is currently using no NRT which should be continued as per the patients request. Medication Plan: Discharge medications will be [facility] by a [facility] hospital medications to be provided by the primary service team The following discharge medications are recommended for the patient: Patient has used Chantix in the past and reported the adverse side effects of night cesar and vividdreams. She reported she stopped taking it and did not find it helpful. She also reported trying Wellbutrin in the past but reported continuing to smoke and did not find it very helpful. Patient currently uses nicotine patches intermittently and is not open to discussing a treatment plan of wearing nicotine patch continuously and tapering down . Nicotine nasal spray: 1-2 times per hour (up to 5 times per hour or 40 times per day) as needed to control cravings and withdrawal symptoms. Adverse effects may inlcude sneezing, cough, throat irritation, watery eyes, running nose (which tend to lessen afer several days of use). I advised the patient that if she experiences any adverse effects from the medication, that she should stop taking and contact their health care provider. This medication plan is within approved guidelines and patient was screened for contraindications, provided education on medications and reviewed side effects. All questions were answered to the bestof my ability. Behavioral Plan: Cognitive and behavorial techniques for coping with urges to smoke were reviewed as well as planning for triggers, changing routines and getting support. Strategies such as avoid places, people or activities that seem to trigger urges to use tobacco, change routines, distraction , use NRT, take up a hobby, self- talk, and alternative substitutes were discussed to help manage urges and cravings. The patient did accept the booklet entitled My Smoke-Free Future. Follow-Up: I encouraged Genevieve Allison to contact me with any questions or concerns. The patient was provided with the following education materials: My Smoke Free Future (QN0076) and Medications to Help You Stop Using Tobacco (ZE9464) as well as the [facility] contact information. We have scheduled a follow-up appointment for the first week of may.. Patient is ready to learn, no apparant barriers to learning were identified. Patient understands and agrees with plan. 40 minutes of our visit was spent on tobacco use disorder counseling. Dino Castillo M.A. 04/24/2023 11:08 AM ESCALATOR INSTALLER LATOR INSTALLER documented in this encounter Nursing Notes * Praveen Gasca R.N. - 04/26/2023 1:30 PM CST Patient discharged from [facility] via escort. PIV removed and AVS reviewed with patient. LATOR INSTALLER * Elli Banda R.N. - 04/26/2023 5:39 AM CST Problem: PAIN - ADULT Goal: PT VERBALIZES/DEMONSTRATES ADEQUATE COMFORT LEVEL OR BASELINE Outcome: Progressing Problem: KNOWLEDGE DEFICIT Goal: Patient/family/caregiver demonstrates understanding of disease process, treatment plan, medications, and discharge instructions Outcome: Progressing Problem: INFECTION - ADULT Goal: Absence of infection during hospitalization Outcome: Progressing Problem: SKIN/TISSUE INTEGRITY Goal: Skin/Tissue integrity maintained or improved Outcome: Progressing Goal: Oral and Nasal mucous membranes remain intact Outcome: Progressing Problem: SAFETY ADULT Goal: Maintain a safe environment Outcome: Progressing Problem: DISCHARGE PLANNING Goal: Patient discharge needs identified Outcome: Progressing Shift Goals: End of Shift Summary: Patient up independently in room. She had nocturnal study done overnight, didqualify to be put on 1L around 3 AM. Blood pressures continue to fluctuate, SBP anywhere from 140's-180's. She denies any headache or chest pain. Plan is to discharge home today with home O2 set-up. LATOR INSTALLER * Elli Banda R.N. - 04/25/2023 4:59 AM CST Problem: PAIN - ADULT Goal: PT VERBALIZES/DEMONSTRATES ADEQUATE COMFORT LEVEL OR BASELINE Outcome: Progressing Problem: KNOWLEDGE DEFICIT Goal: Patient/family/caregiver demonstrates understanding of disease process, treatment plan, medications, and discharge instructions Outcome: Progressing Problem: INFECTION - ADULT Goal: Absence of infection during hospitalization Outcome: Progressing Problem: SKIN/TISSUE INTEGRITY Goal: Skin/Tissue integrity maintained or improved Outcome: Progressing Goal: Oral and Nasal mucous membranes remain intact Outcome: Progressing Problem: SAFETY ADULT Goal: Maintain a safe environment Outcome: Progressing Problem: DISCHARGE PLANNING Goal: Patient discharge needs identified Outcome: Progressing Shift Goals: End of Shift Summary: Patient slept well throughout the night. Remained on room air overnight. Planis for discharge to home on oral antibiotics today. LATOR INSTALLER documented in this encounter ED Notes * Silvia Harris M.D., M.S. - 04/24/2023 3:00 AM CST I have personally seen and examined this patient. I have fully participated in the care of this patient. I have reviewed all clinical information including history, physical exam, orders, and plan. Iagree with the note of the resident. 62 year old female with history of hyperlipidemia, CAD, COPD presents to the ED for evaluation of difficulty breathing. Patient shares she went to bed this evening and felt ???restless. She states over the next few hours, she developed shortness of breath that progressively worsened. She attemptedusing her home albuterol inhaler, but shares symptoms persisted. She contacted 911 was subsequentlybrought to the ED for evaluation. Patient noted to be hypoxic on EMS arrival.En route, she was noted to be hypertensive. She was given a nebulized breathing treatment as well as one sublingual nitro.She feels like her breathing has improved some with that treatment. She denies any chest pain associated with the shortness of breath. No recent fevers, chills. No lower extremity swelling, pain. Shestates she felt otherwise well today. On exam, patient appears well. Hemodynamically stable, afebrile. RRR. Mildly tachypneic. Poor air movement throughout. No wheezing. Abdomen soft, nontender. No guarding or rebound. Full range of motion of extremities without difficulty. Trace edema bilateral lower extremities. Nocalf tenderness. Nonfocal neuro exam. IRP: Dyspnea 62 year old female with history of hyperlipidemia, COPD presents to the ED for evaluation of difficulty breathing. On exam, she was hemodynamically stable, afebrile, but is mildly tachypneic and hypoxic on room air. Poor air movement on auscultation, but I am unable to appreciate any wheezing, rhonchi, or rales. No significant lower extremity edema. No calf tenderness. Broad differential for symptoms. This certainly could be a COPD exacerbation; pneumonia on the differential as well, although no fevers or cough. ACS is on the differential. Less likely PE. No signs or symptoms suggest heart failure as the cause. Will start with basic labs, including cardiac enzymes, chest x-ray, and try additional duo nebs to help with her respiratory status. Reassess for disposition. ED Course as of 04/24/231643 Mon Apr 24, 2023 0332 Patient feels better after nebs, however, on room air her sats are 91% and she does share thather breathing feels labored. Will place in hospital observation for further monitoring. Final Diagnoses: as of 04/24/231643 Shortness Of Breath Chronic Obstructive Pulmonary Disease Exacerbation (HCC) Pneumonia Silvia Harris M.D., M.S. 04/24/231643 LATOR INSTALLER * Jackelin Sahu M.D. - 04/24/2023 2:04 AM CST SUBJECTIVE CHIEF COMPLAINT/REASON FOR VISIT Shortness of Breath HISTORY OF PRESENT ILLNESS Genevieve Allison is a 62 y.o. female with a history of COPD, AAA, stroke on aspirin, who presents to the ED today via EMS for shortness of breath that began around 9:00 p.m. last night. She states she initially felt restless, and then was unable to lie down to sleep without feeling short of breath. Her dyspnea was improved with standing and tripoding. She tried her home rescue inhaler without reliefand called for an ambulance. En route to the ED, patient received 1 DuoNeb with some relief. Blood pressure en route was 200/100, and so patient received 1 dose of nitro, which she states also helped. While patient has a history of COPD, she has never experienced an exacerbation before. She denies recent illnesses, fever, URI symptoms, denies sick contacts, denies orthopnea, paroxysmal nocturnal dyspnea, lower extremity edema. She denies cardiac history, however, chart lists coronary artery disease as part of her history. Patient had MARIA G in January of 2019. Ejection fraction was 65%. Other than moderate to severe atherosclerosis of the aortic arch and descending thoracic aorta, echo was grossly normal. REVIEW OF SYSTEMS Review of systems as noted in HPI. OBJECTIVE Initial Vitals Temp Pulse Heart Rate Resp BP SpO2 Pain Score PHYSICAL EXAMINATION Constitutional: Nursing note and vitals reviewed. She appears distressed (mildly). HENT: Head: Normocephalic and atraumatic. Eyes: Conjunctivae and EOM are normal. Cardiovascular: Normal rate, regular rhythm and normal heart sounds. Pulses are palpable. No murmur heard.Capillary refill: takes less than 3 secondsEdema: no edema noted Pulmonary/Chest: Breath sounds normal. No stridor. Tachypnea noted. She is in respiratory distress (mild). Decreased air movement is present. She has no wheezes. She has no rhonchi. She has no rales.She exhibits no retraction. Abdominal: Soft. Bowel sounds are normal. exhibits no distension. There is no abdominal tenderness. Musculoskeletal: General: No tenderness or edema. Normal range of motion. Cervical back: Normal range of motion. Neurological: Alert and oriented to person, place, and time. Skin: Skin is warm and dry. Psychiatric: She has a normal mood and affect. Behavior is normal. ASSESSMENT/PLAN Genevieve Allison is a 62-year-old female with a history of COPD, AAA, stroke on aspirin, who presents to the ED today via EMS for dyspnea since 9:00 p.m. last night that did not respond to her home rescue inhaler. Upon arrival, patient is well-appearing on 3 liters/minute of supplemental oxygenvia nasal cannula. Blood pressure upon arrival 142/67. In the short amount of time it took to switch patient from EMS nasal cannula to ours, patient began to appear more dyspneic, and began speaking in shorter sentences. Physical exam is notable for mildly decreased air movement throughout but no adventitious sounds, no wheezing, rales, rhonchi, stridor. No lower extremity edema. Differential for this patient includes COPD exacerbation, viral illness, pneumonia, pulmonary embolism, cardiac etiology such as atypical presentation of ACS versus new onset heart failure. We will swab this patient for COVID, flu, and RSV, and acquire basic labs including D-dimer, BNP, serial troponins. We will obtain a chest x- ray and EKG. We will administer two further duo nebs stacked for this patient's ongoing dyspnea and re-evaluate. Disposition is ultimately pending workup. ED Course as of 04/24/23 07MonApr 24, 2023 0210 ECG 12 Lead EKG shows normal sinus at 87 with normal axis and without signs of ischemia. 0220 Leukocytes(!): 17.2 Leukocytosis with neutrophilia suggestive of infection 0220 DX Chest AP or PA and Lateral 2 Views Per my own interpretation, normal sized cardiac silhouette, increased hilar opacities, possible left lower lobe consolidation vs atelectasis. No comparison X-ray in chart. In setting of patient's leukocytosis with neutrophilia, concerning for pneumonia. 0224 D-Dimer, P: 323 D-dimer negative, reassuring for no PE. 0225 DX Chest AP or PA and Lateral 2 Views IMPRESSION: Since 12/24/2018, new hazy ill-defined opacities throughout the bilateral lung bases which could beseen in the setting of developing infectious/inflammatory process. Remainder is not significantly changed. Vascular calcifications. Chest is otherwise negative. Suggestive of bilateral lower lobe pneumonia. 0251 Patient is feeling somewhat improved following two duonebs. We will trial the patient off oxygen. If she maintains her oxygen saturation and does not increase her work of breathing significantly, we will discharge the patient to home with antibiotics. Otherwise, we will admit her with new oxygen requirement. 0317 Patient doing well at rest off oxygen. We will do a trial of ambulation while monitoring her oxygen saturation, as well, and reassess for disposition 0401 On ambulatory test, patient experienced desaturation to 88% and felt increasingly dyspneic. Wewill admit her for her bilateral pneumonia with new oxygen requirement. Final Diagnoses: as of 04/24/23 07 Shortness Of Breath Chronic Obstructive Pulmonary Disease Exacerbation (HCC) Pneumonia Plan for admission discussed with patient, who agrees with plan. All patient questions answered to the best of my ability. Jackelin Sahu M.D. Resident 04/24/23721 LATOR INSTALLER * Netta Fortune R.N. - 04/24/2023 1:57 AM CST Pt presents to the ED via EMS for SOB. Per EMS report pt has COPD history but has never had an exacerbation. Pt utilized home neb without much relief. EMS also reports pt was 200s systolic BP, 1 nitro and 1 neb given in route. Pt currently on 2L NC, baseline RA. Netta Fortune R.N. 04/24/23 0159 LATOR INSTALLER documented in this encounter Miscellaneous Notes * Hospital Course - Krupa Bates M.D. 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 The patient reported acute onset of dyspnea with worsening on exertion, prompting call to EMS. On arrival to the [facility] ED, the patient was afebrile, mildly hypertensive and oxygenating in the 80s, requiring supplemental oxygen via nasal cannula. The patient was noted to have a leukocytosis of 17.2 and new hazy ill-defined opacities throughout the bilateral lung bases. Given concern for COPD exacerbation and pneumonia, the patient was admitted to the pulmonology service on 04/24. On arrival to the floor, the patient was hemodynamically stable. She was continued on pulmonary hygiene, steroids and IV antibiotics. With time, her oxygen needs decreased since she was saturating adequately on room air while at rest. She did desaturate to the mid- to upper-80s with activity and with sleep, so she was prescribed 1 L oxygen to use with activity and 1 L for sleep. She was transitioned to oral cefdinir and doxycycline for treatment of her community aquired pneumonia. She was dismissed on a Stiolto LAMA/LABA inhaler for management of presumed COPD. She will follow-up with Pulmonology in the outpatient setting for PFTs and further evaluation. Through hospital stay, patient met with a COPD educator in addition to nicotine dependence counseling. She has trialed Chantix and Wellbutrin in the past without improvement in her symptoms. She was not interested in being prescribed either Chantix or Wellbutrin on dismissal but did request nicotine nasal spray, which was provided. On 04/25, Ms. Allison developed chest pressure radiating down left arm. There were no associated EKG changes, and 0-hr, 2-hr, and 6-hr troponins remained within normal limits. Ms. Allison had a mildly positive nuclear medicine stress test in 2021 which showed mid- and apical inferior wall ischemia. Unfortunately, there was no further follow up after this nuclear medicine stress test. We discussed her symptoms and prior positive stress test with Cardiology Consult Service. They recommended outpatient dobutamine stress test and Cardiology follow-up within one month. We will arrange for these appointments to occur at [facility]. The appointment request was in triage at time of discharge,and patient will be contacted to schedule these appointments. The patient also experienced persistent hypertension in the 180s throughout her hospitalization and was started on valsartan 80 mg daily and amlodipine 5 daily. We repeated lipid panel while inpatient, and LDL was not at goal < 55. Her atorvastatin was increased to 80 mg daily. Ms. Allison was discharged to home in stable condition on 04/26. She will take oral cefdinir and doxycycline twice daily for 5-day course (end date: 04/28). Patient Recommendations: - please follow up with your primary care provider - use Stiolto inhaler daily - please continue to work on tobacco cessation - take oral prednisone 40 mg, cefdinir 300 mg, doxycycline 100 mg twice daily until 04/28/2023 - please take valsartan 80 mg and amlodipine 5 mg daily - please follow up with Anum Jacobson in pulmonology with lung function testing, chest CT, and assessment of oxygen need on 05/23/2023 - please follow up with cardiology for stress echocardiogram for chest pain within 1 month of discharge (to be triaged and scheduled after discharge) Outpatient PCP Recommendations: - patient was treated for presumed COPD exacerbation dismissed on a Stiolto (LABA/LAMA) inhaler - she will follow-up with pulmonology with PFT testing on 05/23/2023 - patient was dismissed on oral cefdinir 300 mg b.i.d. and doxycycline 100 mg b.i.d. until 04/28/2023 for treatment of community acquired pneumonia - patient had angina on 04/25 with normal ECG and troponins, will follow up with cardiology - follow up on hypertension LATOR INSTALLER documented in this encounter Plan of Treatment Upcoming Encounters Date Type Department Care Team (Late st Contact Info) Description 07/05/2023 9:30 AM CDT Appointment Department of Laboratory Medicine and Pathology, [facility] in [place], [place] [address] [place] [phone] Dilcia Ingram D.O. [address] [place] [id number] 07/05/2023 10:30 AM CDT Hospital Encounter Department of Radiology, [place], [place] [address] [place] [phone] Dilcia Ingram D.O. [address] [place] [phone] 07/05/2023 1:00 PM CDT Comprehensive Visit Department of Vascular Medicine in [place], [place] [address] [place] [phone] Isaiah Manrique M.D. [address] [place] [phone] documented as of this encounter Procedures Procedure Name Priority Date/Time Associated Diagnosis Comments CBC WITH DIFFERENTIAL, B Routine 04/26/2023 10:43 AM ESCALATOR INSTALLER BASIC METABOLIC PANEL, S/P Routine 04/26/2023 10:43 AM ESCALATOR INSTALLER NOCTURNAL OXYGEN STUDY - RT Routine 04/25/2023 4:18 PM ESCALATOR INSTALLER LIPID PANEL, S STAT 04/25/2023 2:27 PM ESCALATOR INSTALLER TROPONIN T, 5TH GEN, P STAT 04/25/2023 2:27 PM ESCALATOR INSTALLER ECG Routine 04/25/2023 9:57 AM ESCALATOR INSTALLER TROPONIN T, 2H/6H, 5TH GEN, P Timed 04/25/2023 9:50 AM ESCALATOR INSTALLER MRSA/STAPHYLOCOCCU S AUREUS, NASAL, BY PCR Routine 04/25/2023 8:32 AM ESCALATOR INSTALLER REMOTE OXIMETRY MONITORING CONT. Routine 04/25/2023 8:02 AM ESCALATOR INSTALLER TROPONIN T, BASELINE, 5TH GEN, P STAT 04/25/2023 7:11 AM ESCALATOR INSTALLER CBC WITH DIFFERENTIAL, B Routine 04/25/2023 7:11 AM ESCALATOR INSTALLER BASIC METABOLIC PANEL, S/P Routine 04/25/2023 7:11 AM ESCALATOR INSTALLER ECG STAT 04/25/2023 6:44 AM ESCALATOR INSTALLER REMOTE OXIMETRY MONITORING CONT. Routine 04/24/2023 8:00 PM ESCALATOR INSTALLER REMOTE OXIMETRY MONITORING CONT. Routine 04/24/2023 8:02 AM ESCALATOR INSTALLER BACTERIA / HALI CULTURE, BLOOD Routine 04/24/2023 7:50 AM ESCALATOR INSTALLER BACTERIA / HALI CULTURE, BLOOD Routine 04/24/2023 7:36 AM ESCALATOR INSTALLER REMOTE OXIMETRY MONITORING CONT. Routine 04/24/2023 6:16 AM ESCALATOR INSTALLER REMOTE OXIMETRY MONITORING CONT. Routine 04/24/2023 6:16 AM ESCALATOR INSTALLER REMOTE OXIMETRY MONITORING CONT. Routine 04/24/2023 6:16 AM ESCALATOR INSTALLER TROPONIN T, 2H/6H, 5TH GEN, P Timed 04/24/2023 4:12 AM ESCALATOR INSTALLER IFLU A, B, SARS COV-2, PCR, RAPID,V STAT 04/24/2023 2:36 AM ESCALATOR INSTALLER DX CHEST AP OR PA AND LATERAL 2 VIEWS RAD - Semiurgent (Fast; most ED patients; some inpatients) 04/24/2023 2:19 AM ESCALATOR INSTALLER D-DIMER, P STAT 04/24/2023 2:10 AM ESCALATOR INSTALLER TROPONIN T, BASELINE, 5TH GEN, P STAT 04/24/2023 2:09 AM ESCALATOR INSTALLER NT-PRO B-TYPE NATRIURETIC PEPTIDE (BNP), S STAT 04/24/2023 2:09 AM ESCALATOR INSTALLER CBC WITH DIFFERENTIAL, B STAT 04/24/2023 2:09 AM ESCALATOR INSTALLER BASIC METABOLIC PANEL, S/P STAT 04/24/2023 2:09 AM ESCALATOR INSTALLER ECG STAT 04/24/2023 1:59 AM ESCALATOR INSTALLER documented in this encounter Results * Basic Metabolic Panel (04/26/2023 10:43 AM ESCALATOR INSTALLER) Potassium, S 4.9 3.6 - 5.2 mmol/L 04/26/2023 12:05 PM ESCALATOR INSTALLER DTL Sodium, S 137 135 - 145 mmol/L 04/26/2023 12:05 PM ESCALATOR INSTALLER DTL Chloride, S 99 98 - 107 mmol/L 04/26/2023 12:05 PM ESCALATOR INSTALLER DTL Bicarbonate, S 28 22 - 29 mmol/L 04/26/2023 12:05 PM ESCALATOR INSTALLER DTL Anion Gap 10 7 - 15 04/26/2023 12:05 PM ESCALATOR INSTALLER DTL BUN (Blood Urea Nitrogen), S 19 6 - 21 mg/dL 04/26/2023 12:05 PM ESCALATOR INSTALLER DTL Creatinine 0.63 0.59 - 1.04 mg/dL 04/26/2023 12:05 PM ESCALATOR INSTALLER DTL Estimated GFR (eGFR) >90 >=60 mL/min/BSA 04/26/2023 12:05 PM ESCALATOR INSTALLER DTL Comment: Estimated GFR calculated using the 2020 CKD_EPI creatinine equation. Calcium, Total, S 9.3 8.8 - 10.2 mg/dL 04/26/2023 12:05 PM ESCALATOR INSTALLER DTL Glucose, S 95 70 - 140 mg/dL 04/26/2023 12:05 PM ESCALATOR INSTALLER DTL Blood (Blood, Venous) 04/26/2023 10:43 AM ESCALATOR INSTALLER 04/26/2023 11:31 AM ESCALATOR INSTALLER Krupa Bates M.D. LAB BLOOD ADD-O N [facility] [address] [place] [address], [facility] DTL [facility] [address] [place] [address] * (ABNORMAL) CBC with Differential, Blood (04/26/2023 10:43 AM ESCALATOR INSTALLER) Hemoglobin 13.7 11.6 - 15.0 g/dL 04/26/2023 11:33 AM ESCALATOR INSTALLER DTL Hematocrit 42.1 35.5 - 44.9 % 04/26/2023 11:33 AM ESCALATOR INSTALLER DTL Erythrocytes 4.38 3.92 - 5.13 x10(12)/L 04/26/2023 11:33 AM ESCALATOR INSTALLER DTL MCV 96.1 78.2 - 97.9 fL 04/26/2023 11:33 AM ESCALATOR INSTALLER DTL RBC Distrib Width 13.4 12.2 - 16.1 % 04/26/2023 11:33 AM ESCALATOR INSTALLER DTL Platelet Count 327 157 - 371 x10(9)/L 04/26/2023 11:33 AM ESCALATOR INSTALLER DTL Leukocytes 13.4(H) 3.4 - 9.6 x10(9)/L 04/26/2023 11:33 AM ESCALATOR INSTALLER DTL Neutrophils 10.36(H) 1.56 - 6.45 x10(9)/L 04/26/2023 11:33 AM ESCALATOR INSTALLER DHPM Lymphocytes 2.08 0.95 - 3.07 x10(9)/L 04/26/2023 11:33 AM ESCALATOR INSTALLER DTL Monocytes 0.77 0.26 - 0.81 x10(9)/L 04/26/2023 11:33 AM ESCALATOR INSTALLER DTL Eosinophils 0.15 0.03 - 0.48 x10(9)/L 04/26/2023 11:33 AM ESCALATOR INSTALLER DTL Basophils 0.06 0.01 - 0.08 x10(9)/L 04/26/2023 11:33 AM ESCALATOR INSTALLER DTL Blood (Blood, Venous) 04/26/2023 10:43 AM ESCALATOR INSTALLER 04/26/2023 11:15 AM ESCALATOR INSTALLER Krupa Bates M.D. LAB BLOOD ADD-O N [facility] [address] [place] [address], [facility] DTL [facility] [address] [place] [address] [facility] [address] [place] [address] * Lipid Panel (04/25/2023 2:27 PM ESCALATOR INSTALLER) Triglycerides 81 mg/dL 04/25/2023 3:29 PM ESCALATOR INSTALLER DTL Comment: ----REFERENCE VALUE---- Normal: <150 mg/dL Borderline High: 150-199 mg/dL High: 200-499 mg/dL Very High: > or =500 mg/dL Cholesterol, Total 153 mg/dL 2023 3:29 PM ESCALATOR INSTALLER DTL Comment: ----REFERENCE VALUE---- Desirable: < 200 mg/dL Borderline High: 200 - 239 mg/dL High: > or = 240 mg/dL Cholesterol, LDL, Calculated 70 mg/dL 04/25/2023 3:29 PM ESCALATOR INSTALLER DTL Comment: ----REFERENCE VALUE---- Desirable: <100 mg/dL Above Desirable: 100-129 mg/dL Borderline High: 130-159 mg/dL High: 160-189 mg/dL Very High: >=190 mg/dL ----ADDITIONAL INFORMATION---- LDL cholesterol calculated using the Cee/NIH equation. Cholesterol, HDL, S 68 >=50 mg/dL 04/25/2023 3:29 PM ESCALATOR INSTALLER DTL Cholesterol, Non-HDL, Calculated 85 mg/dL 04/25/2023 3:29 PM ESCALATOR INSTALLER DTL Comment: ----REFERENCE VALUE---- Desirable: <130 mg/dL Above Desirable: 130-159 mg/dL Borderline High: 160-189 mg/dL High: 190-219 mg/dL Very High: > or =220 mg/dL Fasting (8 HR or more) No 04/25/2023 3:08 PM ESCALATOR INSTALLER DTL Blood (Blood, Venous) 04/25/2023 2:27 PM ESCALATOR INSTALLER 04/25/2023 3:08 PM ESCALATOR INSTALLER Krupa Bates M.D. LAB BLOOD ADD-O N Performing Organization Address [facility] Co de Phone Number [facility] [address] [place] [address], [facility] DTL [facility] [address] [place] [address] * Troponin T, 5th Generation (04/25/2023 2:27 PM ESCALATOR INSTALLER) Troponin T, 5th gen 7 <=10 ng/L 04/25/2023 2:50 PM ESCALATOR INSTALLER [facility] Blood (Blood, Venous) 04/25/2023 2:27 PM ESCALATOR INSTALLER 04/25/2023 2:34 PM ESCALATOR INSTALLER Krupa Bates M.D. LAB BLOOD ADD-O N Performing Organization Address [facility] Co de Phone Number [facility] [address] [place] [address], [facility] [address] [place] [address] * ECG 12 Lead (04/25/2023 9:57 AM ESCALATOR INSTALLER) Ventricular Rate ECG/Min 90 BPM MUSE OR Interval 136 ms MUSE QRSD Interval 84 ms MUSE QT Interval 346 ms MUSE QTC Interval 423 ms MUSE P [place] 69 degrees MUSE R [place] 70 degrees MUSE T Wave [place] 58 degrees MUSE 04/25/2023 9:57 AM ESCALATOR INSTALLER 04/25/2023 10:00 AM ESCALATOR INSTALLER Impressions MUSE - 04/25/2023 10:00 AM ESCALATOR INSTALLER Sinus rhythm Premature ventricular complexes Otherwise normal [...] Bates M.D. ECG ORDERABLES Performing Organization Address City/[facility]/ZIP Co de Phone Number MUSE NA * Troponin T, 2h/6h, 5th Gen (04/25/2023 9:50 AM ESCALATOR INSTALLER) Troponin T, 2 hr, 5th gen 8 <=10 ng/L 04/25/2023 11:03 AM ESCALATOR INSTALLER DTL 2H Delta 1 ng/L 04/25/2023 11:03 AM ESCALATOR INSTALLER DTL 2H Delta Interp Not Changing 04/25/2023 11:03 AM ESCALATOR INSTALLER DTL Troponin T, 6 hr, 5th gen CANCELED ng/L 04/25/2023 11:03 AM ESCALATOR INSTALLER DTL Comment:Result canceled by t he ancillary. 6H Delta CANCELED ng/L 04/25/2023 11:03 AM ESCALATOR INSTALLER STMA Comment:Result canceled by t he ancillary. Blood (Blood, Venous) 04/25/2023 9:50 AM ESCALATOR INSTALLER 04/25/2023 10:09 AM ESCALATOR INSTALLER Narrative [facility] - 04/25/2023 11:03 AM ESCALATOR INSTALLER Specimen Information: Specimen ID: [id number] Specimen Type: Blood Specimen Collection Start Date: 04/25/2023 ??9:50 AM Specimen Received Date: 04/25/2023 10:09 AM Specimen ID: [id number] Specimen Type: Blood Elgin Sherwood M.D., Ph.D. LAB BLO OD TROPONIN Performing Organization Address City/[facility]/ZIP Co de Phone Number [facility] [address] [place] [address], [place] DTL [facility] [address] [place] [address] [facility] [address] [place] [address] * Staph aureus / MRSA, Nasal, PCR (04/25/2023 8:32 AM ESCALATOR INSTALLER) Pathologist [facility] Staphylococcus aureus, PCR Negative Negative 04/25/2023 11:59 AM ESCALATOR INSTALLER DTL MRSA, PCR Negative Negative 04/25/2023 11:59 AM ESCALATOR INSTALLER DTL Swab (Nares) 04/25/2023 8:32 AM ESCALATOR INSTALLER 04/25/2023 10:33 AM ESCALATOR INSTALLER Krupa Bates M.D. LAB MICROBIOLOG Y - GENERAL ORDERABLES [facility] [address] [facility] [address] [place] [address] * Troponin T, Baseline, 5th gen (04/25/2023 7:11 AM ESCALATOR INSTALLER) Pathologist [facility] Troponin T, Baseline, 5th gen 7 <=10 ng/L 04/25/2023 7:37 AM ESCALATOR INSTALLER STMA Blood (Blood, Venous) 04/25/2023 7:11 AM ESCALATOR INSTALLER 04/25/2023 7:19 AM ESCALATOR INSTALLER Elgin Sherwood M.D., Ph.D. LAB BLO OD TROPONIN Performing Organization Address City/[facility] Co de Phone Number [facility] [address] [place] [address], [facility] STMA [facility] [address] [place] [address] * (ABNORMAL) Basic Metabolic Panel (04/25/2023 7:11 AM ESCALATOR INSTALLER) Pathologist [facility] Potassium, S 4.4 3.6 - 5.2 mmol/L 04/25/2023 8:18 AM ESCALATOR INSTALLER DTL Sodium, S 140 135 - 145 mmol/L 04/25/2023 8:18 AM ESCALATOR INSTALLER DTL Chloride, S 103 98 - 107 mmol/L 04/25/2023 8:18 AM ESCALATOR INSTALLER DTL Bicarbonate, S 26 22 - 29 mmol/L 04/25/2023 8:18 AM ESCALATOR INSTALLER DTL Anion Gap 11 7 - 15 04/25/2023 8:18 AM ESCALATOR INSTALLER DTL BUN (Blood Urea Nitrogen), S 16 6 - 21 mg/dL 04/25/2023 8:18 AM ESCALATOR INSTALLER DTL Creatinine 0.53(L) 0.59 - 1.04 mg/dL 04/25/2023 8:18 AM ESCALATOR INSTALLER DTL Estimated GFR (eGFR) >90 >=60 mL/min/BSA 04/25/2023 8:18 AM ESCALATOR INSTALLER DTL Comment: Estimated GFR calculated using the 2020 CKD_EPI creatinine equation. Calcium, Total, S 9.7 8.8 - 10.2 mg/dL 04/25/2023 8:18 AM ESCALATOR INSTALLER DTL Glucose, S 149(H) 70 - 140 mg/dL 04/25/2023 8:18 AM ESCALATOR INSTALLER DTL Blood (Blood, Venous) 04/25/2023 7:11 AM ESCALATOR INSTALLER 04/25/2023 7:53 AM ESCALATOR INSTALLER Perla Lorenz M.D. LAB BLOOD ADD-ON [facility] [address] [address], [facility] [place] [address] * (ABNORMAL) CBC with Differential, Blood (04/25/2023 7:11 AM ESCALATOR INSTALLER) Hemoglobin 12.8 11.6 - 15.0 g/dL 04/25/2023 7:46 AM ESCALATOR INSTALLER DTL Hematocrit 38.9 35.5 - 44.9 % 04/25/2023 7:46 AM ESCALATOR INSTALLER DTL Erythrocytes 4.06 3.92 - 5.13 x10(12)/L 04/25/2023 7:46 AM ESCALATOR INSTALLER DTL MCV 95.8 78.2 - 97.9 fL 04/25/2023 7:46 AM ESCALATOR INSTALLER DTL RBC Distrib Width 13.0 12.2 - 16.1 % 04/25/2023 7:46 AM ESCALATOR INSTALLER DTL Platelet Count 319 157 - 371 x10(9)/L 04/25/2023 7:46 AM ESCALATOR INSTALLER DTL Leukocytes 15.0(H) 3.4 - 9.6 x10(9)/L 04/25/2023 7:46 AM ESCALATOR INSTALLER DTL Neutrophils 12.14(H) 1.56 - 6.45 x10(9)/L 04/25/2023 7:46 AM ESCALATOR INSTALLER DHPM Lymphocytes 1.89 0.95 - 3.07 x10(9)/L 04/25/2023 7:46 AM ESCALATOR INSTALLER DTL Monocytes 0.97(H) 0.26 - 0.81 x10(9)/L 04/25/2023 7:46 AM ESCALATOR INSTALLER DTL Eosinophils <0.03 0.03 - 0.48 x10(9)/L 04/25/2023 7:46 AM ESCALATOR INSTALLER DTL Basophils 0.03 0.01 - 0.08 x10(9)/L 04/25/2023 7:46 AM ESCALATOR INSTALLER DTL Blood (Blood, Venous) 04/25/2023 7:11 AM ESCALATOR INSTALLER 04/25/2023 7:34 AM ESCALATOR INSTALLER Aurea García M.D. LAB BLO OD ADD-ON [facility] [address] [place] [address], [facility] DTL [facility] [address] [place] [address] [facility] [address] [place] [address] * ECG 12 Lead (04/25/2023 6:44 AM ESCALATOR INSTALLER) Ventricular Rate ECG/Min 96 BPM MUSE OR Interval 148 ms MUSE QRSD Interval 88 ms MUSE QT Interval 342 ms MUSE QTC Interval 432 ms MUSE P [place] 69 degrees MUSE R [place] 72 degrees MUSE T Wave [place] 60 degrees MUSE 04/25/2023 6:44 AM ESCALATOR INSTALLER 04/25/2023 6:53 AM ESCALATOR INSTALLER Impressions MUSE - 04/25/2023 6:53 AM ESCALATOR INSTALLER Normal sinus rhythm Normal ECG When compared with ECG of 24-APR-2023 01:59, No significant change was found Reviewed by GAVIN Chatterjee Narrative Procedure Note Narinder Duncan M.D. - 04/25/2023 IMPRESSION: Normal sinus rhythm Normal ECG When compared with ECG of 24-APR-2023 01:59, No significant change was found Reviewed by GAVIN Chatterjee Elgin Sherwood M.D., Ph.D. ECG ORD ERABLES Performing Organization Address [facility] Co de Phone Number MUSE NA * Bacteria / Hali Culture, Blood #2 (04/24/2023 7:50 AM ESCALATOR INSTALLER) Bacteria/Deborah da Culture, Blood No growth after 5 days of incubation. 04/29/2023 10:02 AM ESCALATOR INSTALLER DTL Blood (Blood, Peripheral Draw) 04/24/2023 7:50 AM ESCALATOR INSTALLER 04/24/2023 9:13 AM ESCALATOR INSTALLER Comment:Specimen Source Site : Blood Aurea García M.D. LAB [facility] ROBIOLOGY - GENERAL ORDERABLES Performing Organization Address [facility] de Phone Number [facility] [address] [place] [address] * Bacteria / Hali Culture, Blood #1 (04/24/2023 7:36 AM ESCALATOR INSTALLER) Bacteria/Deborah da Culture, Blood No growth after 5 days of incubation. 04/29/2023 10:02 AM ESCALATOR INSTALLER DTL Blood (Blood, Peripheral Draw) 04/24/2023 7:36 AM ESCALATOR INSTALLER 04/24/2023 9:12 AM ESCALATOR INSTALLER Comment:Specimen Source Site : Blood Aurea García M.D. LAB [facility] ROBIOLOGY - GENERAL ORDERABLES Performing Organization Address [facility] Co de Phone Number [facility] [address] [place] [address], [facility] [address] [place] [address] * Troponin T, 2h/6h, 5th Gen (04/24/2023 4:12 AM ESCALATOR INSTALLER) Pathologist [facility] Troponin T, 2 hr, 5th gen <6 <=10 ng/L 04/24/2023 4:36 AM ESCALATOR INSTALLER [facility] 2H Delta 0 ng/L 04/24/2023 4:36 AM ESCALATOR INSTALLER ST[facility] 2H Delta Interp Not Changing 04/24/2023 4:36 AM ESCALATOR INSTALLER [facility] Troponin T, 6 hr, 5th gen CANCELED ng/L 04/24/2023 4:36 AM ESCALATOR INSTALLER ST[facility] Comment:Result canceled by t he ancillary. 6H Delta CANCELED ng/L 04/24/2023 4:32 AM ESCALATOR INSTALLER STMA Comment:Result canceled by t he ancillary. 6H Delta % CANCELED % 04/24/2023 4:32 AM ESCALATOR INSTALLER STMA Comment:Result canceled by t he ancillary. Blood (Blood, Venous) 04/24/2023 4:12 AM ESCALATOR INSTALLER 04/24/2023 4:16 AM ESCALATOR INSTALLER Narrative [facility] - 04/24/2023 4:36 AM ESCALATOR INSTALLER Specimen Information: Specimen ID: [id number] Specimen Type: Blood Specimen Collection Start Date: 04/24/2023 ??4:12 AM Specimen Received Date: 04/24/2023 ??4:16 AM Specimen ID: [id number] Specimen Type: Blood Specimen Collection Start Date: 04/24/2023 ??4:36 AM Specimen Received Date: 04/24/2023 ??4:36 AM Silvia Harris M.D., M.S. LAB BLOOD TR OPONIN [facility] [address] [place] [address], [facility] [address] [place] [address] * Influenza A/B, SARS CoV-2, PCR, Rapid Symptomatic (04/24/2023 2:36 AM ESCALATOR INSTALLER) [facility] Influenza A, PCR, Rapid, V Negative Negative 04/24/2023 3:06 AM ESCALATOR INSTALLER ST[facility] Influenza B, PCR, Rapid, V Negative Negative 04/24/2023 3:06 AM ESCALATOR INSTALLER ST[facility] SARS CoV-2, PCR, Rapid, V Undetected Undetected 04/24/2023 3:06 AM ESCALATOR INSTALLER ST[facility] Comment: ----ADDITIONAL INFORMATION---- This RT-PCR test was performed using the [employer] SARS-CoV-2 and Influenza A/B Reagent assay from [employer], which has received Emergency Use Authorization(EUA) by the U.S. Food and Drug Administration. Fact sheets for this Emergency Use Authorization (EUA) assay can be found at the following links: For Healthcare Providers: https://www.[employer].gov/media/746587/download For Patients: https://www.fda.gov/media/177466/download Infl A/B, SARS CoV-2, PCR, Source Swab, Nasopharynx 04/24/2023 2:41 AM ESCALATOR INSTALLER [facility] Swab (Nasopharynx) 04/24/2023 2:36 AM ESCALATOR INSTALLER 04/24/2023 2:41 AM ESCALATOR INSTALLER Silvia Harris M.D., M.S. LAB MICROBIO LOGY - GENERAL ORDERABLES [facility] [address] [place] [address], [facility] [address] [place] [address] * DX Chest AP or PA and Lateral 2 Views (04/24/2023 2:19 AM ESCALATOR INSTALLER) Anatomical Region Laterality Modality Chest, Thoracic RST LOS, Tho racic ARZ LOS, Thoracic FLA LOS N/A Digital Radiography Impressions 04/24/2023 2:39 AM ESCALATOR INSTALLER Since 12/24/2018, new hazy ill-defined opacities throughout the bilateral lung bases which could be seen in the setting of developing infectious/inflammatory process. Remainder is not significantly changed. Vascular calcifications. Chest is otherwise negative. Narrative 04/24/2023 2:39 AM ESCALATOR INSTALLER EXAM: ??DX CHEST AP OR PA AND [...] IMAGING PROCEDURES * D-Dimer (04/24/2023 2:10 AM ESCALATOR INSTALLER) Pathologist [facility] D-Dimer, P 323 <=500 ng/mL FEU 04/24/2023 2:22 AM ESCALATOR INSTALLER [facility] Comment: ----ADDITIONAL INFORMATION---- D-dimer values less than or equal to 500 ng/mL fibrinogen equivalent units (FEU) may be used in conjunction with clinical pre-test probability to exclude deep vein thrombosis (DVT) and/or pulmonary embolism (PE). Blood (Blood, Venous) 04/24/2023 2:10 AM ESCALATOR INSTALLER 04/24/2023 2:14 AM ESCALATOR INSTALLER Silvia Harris M.D., M.S. LAB BLOOD AD D-ON [place] [address] [place] [address], [facility] [address] [place] [address] * NT-Pro B-Type Natriuretic Peptide (BNP) (04/24/2023 2:09 AM ESCALATOR INSTALLER) Pathologist [facility] NT-Pro BNP 94 <=226 pg/mL 04/24/2023 2:50 AM ESCALATOR INSTALLER [facility] Comment: NT-proBNP values less than [...] failure. Blood (Blood, Venous) 04/24/2023 2:09 AM ESCALATOR INSTALLER 04/24/2023 2:14 AM ESCALATOR INSTALLER Silvia Harris M.D., MJustinSJustin LAB BLOOD AD D-ON Performing Organization Address [facility] Co de Phone Number [facility] [address] [place] [address], [facility] STMA [facility] [address] [place] [address] * Troponin T, Baseline, 5th gen (04/24/2023 2:09 AM ESCALATOR INSTALLER) Troponin T, Baseline, 5th gen <6 <=10 ng/L 04/24/2023 2:42 AM ESCALATOR INSTALLER [facility] Blood (Blood, Venous) 04/24/2023 2:09 AM ESCALATOR INSTALLER 04/24/2023 2:14 AM ESCALATOR INSTALLER Silvia Harris M.D., MJustinSJustin LAB BLOOD TR OPONIN Performing Organization Address [facility] Co de Phone Number [facility] [address] [place] [address], [facility] [address] [place] [address] * (ABNORMAL) Basic Metabolic Panel (04/24/2023 2:09 AM ESCALATOR INSTALLER) Potassium, P 3.9 3.6 - 5.2 mmol/L 04/24/2023 2:30 AM ESCALATOR INSTALLER ST[facility] Sodium, P 140 135 - 145 mmol/L 04/24/2023 2:30 AM ESCALATOR INSTALLER [facility] Chloride, P 102 98 - 107 mmol/L 04/24/2023 2:30 AM ESCALATOR INSTALLER [facility] Bicarbonate, P 26 22 - 29 mmol/L 04/24/2023 2:30 AM ESCALATOR INSTALLER [facility] Anion Gap, P 12 7 - 15 04/24/2023 2:30 AM ESCALATOR INSTALLER [facility] BUN (Blood Urea Nitrogen), P 17 6 - 21 mg/dL 04/24/2023 2:30 AM ESCALATOR INSTALLER [facility] Creatinine 0.54(L) 0.59 - 1.04 mg/dL 04/24/2023 2:30 AM ESCALATOR INSTALLER [facility] Estimated GFR (eGFR) >90 >=60 mL/min/BSA 04/24/2023 2:30 AM ESCALATOR INSTALLER [facility] Comment: Estimated GFR calculated using the 2020 CKD_EPI creatinine equation. Calcium, Total, P 9.3 8.8 - 10.2 mg/dL 04/24/2023 2:30 AM ESCALATOR INSTALLER STMA Glucose, P 141(H) 70 - 140 mg/dL 04/24/2023 2:30 AM ESCALATOR INSTALLER [facility] Blood (Blood, Venous) 04/24/2023 2:09 AM ESCALATOR INSTALLER 04/24/2023 2:14 AM ESCALATOR INSTALLER Silvia Harris M.D., M.S. LAB BLOOD AD D-ON [facility] [address] [place] [address], [facility] [address] [address] * (ABNORMAL) CBC with Differential, Blood (04/24/2023 2:09 AM ESCALATOR INSTALLER) Hemoglobin 13.6 11.6 - 15.0 g/dL 04/24/2023 2:16 AM ESCALATOR INSTALLER STMA Hematocrit 41.1 35.5 - 44.9 % 04/24/2023 2:16 AM ESCALATOR INSTALLER [facility] Erythrocytes 4.31 3.92 - 5.13 x10(12)/L 04/24/2023 2:16 AM ESCALATOR INSTALLER [facility] MCV 95.4 78.2 - 97.9 fL 04/24/2023 2:16 AM ESCALATOR INSTALLER [facility] RBC Distrib Width 13.0 12.2 - 16.1 % 04/24/2023 2:16 AM ESCALATOR INSTALLER ST[facility] Platelet Count 267 157 - 371 x10(9)/L 04/24/2023 2:16 AM ESCALATOR INSTALLER [facility] Leukocytes 17.2(H) 3.4 - 9.6 x10(9)/L 04/24/2023 2:16 AM ESCALATOR INSTALLER ST[facility] Neutrophils 14.10(H) 1.56 - 6.45 x10(9)/L 04/24/2023 2:16 AM ESCALATOR INSTALLER DHPM Lymphocytes 1.97 0.95 - 3.07 x10(9)/L 04/24/2023 2:16 AM ESCALATOR INSTALLER ST[facility] Monocytes 0.89(H) 0.26 - 0.81 x10(9)/L 04/24/2023 2:16 AM ESCALATOR INSTALLER ST[facility] Eosinophils 0.14 0.03 - 0.48 x10(9)/L 04/24/2023 2:16 AM ESCALATOR INSTALLER [facility] Basophils 0.12(H) 0.01 - 0.08 x10(9)/L 04/24/2023 2:16 AM ESCALATOR INSTALLER ST[facility] Blood (Blood, Venous) 04/24/2023 2:09 AM ESCALATOR INSTALLER 04/24/2023 2:14 AM ESCALATOR INSTALLER Silvia Harris M.D., M.S. LAB BLOOD AD D-ON [facility] [address] [place] [address], [facility] STMA [facility] [address] [place] [address] [facility] [address] [place] [address] * ECG 12 Lead (04/24/2023 1:59 AM ESCALATOR INSTALLER) Ventricular Rate ECG/Min 87 BPM MUSE OR Interval 140 ms MUSE QRSD Interval 80 ms MUSE QT Interval 370 ms MUSE QTC Interval 445 ms MUSE P [place] 71 degrees MUSE R [place] 80 degrees MUSE T Wave [place] 79 degrees MUSE 04/24/2023 1:59 AM ESCALATOR INSTALLER 04/24/2023 2:10 AM ESCALATOR INSTALLER Impressions MUSE - 04/24/2023 2:10 AM ESCALATOR INSTALLER Poor data quality Normal sinus rhythm Normal ECG When compared with ECG of 12-FEB-2019 08:53, No significant change was found Reviewed by GAVIN Martines Narrative Procedure Note Ranjeet Gasca Jr., M.D. - 04/24/2023 IMPRESSION: Poor data quality Normal sinus rhythm Normal ECG When compared with ECG of 12-FEB-2019 08:53, No significant change was found Reviewed by GAVIN Martines Silvia Harris M.D., M.S. ECG ORDERABL ES MUSE NA documented in this encounter Visit Diagnoses Diagnosis Pneumonia- Primary Shortness Of Breath Chronic Obstructive Pulmonary Disease Exacerbation (HCC) Pneumonia Nicotine Dependence Cigarettes With Withdrawal Chronic Obstructive Pulmonary Disease (HCC) Stroke (HCC) Hypoxia Abuse Tobacco Smoking Counseling Smoking Cessation Pain Chest Atherosclerotic Heart Disease [place] Coronary Artery With Other Forms Angina Pectoris (Stable Angina/Angina Of Exertion) (HCC) Hypertensive Urgency Hypertension Essential Primary documented in this encounter Admitting Diagnoses Diagnosis Pneumonia documented in this encounter Administered Medications Inactive Administered Medications - up to 3 most recent administrations Medication Order MAR Action Action Date Dose Rate Site acetaminophen tablet 1,000 mg (TYLENOL) 1,000 mg, oral, Every 6 hours PRN, mild pain or score 1-3 of 10, moderate pain or score 4-6 of 10, severe pain or score 7-10 of 10, headaches, Starting on Mon04/25/23 at 1815 acetaminophen tablet 650 mg (TYLENOL) 650 mg, oral, Every 6 hours PRN, mild pain or score 1-3 of 10, Starting on Mon04/24/23 at 0616 Given 04/25/2023 12:14 PM ESCALATOR INSTALLER 650 mg Given 04/25/2023 5:48 AM ESCALATOR INSTALLER 650 mg Given 04/24/2023 9:48 PM ESCALATOR INSTALLER 650 mg amLODIPine tablet 5 mg (NORVASC) 5 mg, oral, Daily, First dose on Mon04/26/23 at 0900 Given 04/26/2023 8:08 AM ESCALATOR INSTALLER 5 mg aspirin (buffered) tablet 325 mg 325 mg, oral, Daily, First dose on Mon04/24/23 at 0900 Given 04/26/2023 8:08 AM ESCALATOR INSTALLER 325 mg Given 04/25/2023 8:36 AM ESCALATOR INSTALLER 325 mg Given 04/24/2023 9:13 AM ESCALATOR INSTALLER 325 mg atorvastatin tablet 40 mg (LIPITOR) 40 mg, oral, Daily at bedtime, First dose on Mon04/24/23 at 2100 Given 04/25/2023 9:13 PM ESCALATOR INSTALLER 40 mg Given 04/24/2023 9:42 PM ESCALATOR INSTALLER 40 mg atorvastatin tablet 80 mg (LIPITOR) 80 mg, oral, Daily at bedtime, First dose (after last modification) on Mon04/26/23 at 2100 cefdinir capsule 300 mg (OMNICEF) 300 mg, oral, 2 times daily before breakfast and dinner, First dose on Mon04/24/23 at 1600, Administer 2 hours before or 6 hours after taking magnesium, aluminum (antacids, laxatives) or calcium and iron supplements (multivitamins); may be taken with calcium or iron if given with food., Drug Monitoring Program: Pharmacist to adjust medication dosing based on indication and drug clearance factors., Indications: Respiratory tract infection, community acquired Given 04/26/2023 5:09 AM ESCALATOR INSTALLER 300 mg Given 04/25/2023 5:28 PM ESCALATOR INSTALLER 300 mg Given 04/25/2023 5:43 AM ESCALATOR INSTALLER 300 mg cefTRIAXone injection 2 g (ROCEPHIN) 2 g, intravenous, Once, On Mon04/24/23 at 0337, For 1 dose, Adminster IV push over 3 minutes., Drug Monitoring Program: Pharmacist to adjust medication dosing based on indication and drug clearance factors., Indications: Respiratory tract infection, community acquired Given 04/24/2023 3:48 AM ESCALATOR INSTALLER 2 g dexAMETHasone tablet 10 mg (DECADRON) 10 mg, oral, Once, On Mon04/24/23 at 0307, For 1 dose Given 04/24/2023 3:48 AM ESCALATOR INSTALLER 10 mg doxycycline monohydrate capsule 100 mg (MONODOX) 100 mg, oral, Once, On Mon04/24/23 at 0337, For 1 dose, Administer 2 hours before or 6 hours after taking magnesium, aluminum (antacids, laxatives) or calcium and iron supplements (multivitamins). Ensure patient remains upright for 30 minutes post-dose., Indications: Respiratory tract infection, community acquired Given 04/24/2023 3:48 AM ESCALATOR INSTALLER 100 mg doxycycline monohydrate capsule 100 mg (MONODOX) 100 mg, oral, 2 times daily before breakfast and dinner, First dose on Mon04/24/23 at 1400, Administer 2 hours before or 6 hours after taking magnesium, aluminum (antacids, laxatives) or calcium and iron supplements (multivitamins). Ensure patient remains upright for 30 minutes post-dose., Indications: Respiratory tract infection, healthcare associated Given 04/26/2023 5:09 AM ESCALATOR INSTALLER 100 mg Given 04/25/2023 5:28 PM ESCALATOR INSTALLER 100 mg Given 04/25/2023 5:43 AM ESCALATOR INSTALLER 100 mg ibuprofen tablet 400 mg (MOTRIN) 400 mg, oral, Every 6 hours PRN, moderate pain or score 4-6 of 10, Starting on Mon04/25/23 at 1221, Take with food or milk if GI disturbances occur with use. Given 04/25/2023 9:23 PM ESCALATOR INSTALLER 400 mg ipratropium-albuteroL 0.5-2.5 mg/3 mL nebulizer solution 3 mL (DUONEB) 3 mL, nebulization, Once, On Mon04/24/23 at 0205, For 1 dose Given 04/24/2023 2:21 AM ESCALATOR INSTALLER 3 mL ipratropium-albuteroL 0.5-2.5 mg/3 mL nebulizer solution 3 mL (DUONEB) 3 mL, nebulization, Once, On Mon04/24/23 at 0205, For 1 dose Given 04/24/2023 2:21 AM ESCALATOR INSTALLER 3 mL ipratropium-albuteroL 0.5-2.5 mg/3 mL nebulizer solution 3 mL (DUONEB) 3 mL, nebulization, 4 times daily (RT), First dose on Mon04/24/23 at 0700 Given 04/25/2023 9:13 PM ESCALATOR INSTALLER 3 mL Given 04/25/2023 12:09 PM ESCALATOR INSTALLER 3 mL Given 04/25/2023 5:43 AM ESCALATOR INSTALLER 3 mL nicotine 21 mg/24 hr 1 patch (NICODERM CQ) 1 patch, transdermal, Administer over 24 Hours, Daily PRN, For tobacco cravings, Starting on Mon04/24/23 at 0530 Medication Applied 04/26/2023 8:13 AM ESCALATOR INSTALLER 1 patch Right Shoulder Medication Applied 04/25/2023 8:40 AM ESCALATOR INSTALLER 1 patch Left Shoulder nicotine polacrilex gum 2 mg (NICORETTE) 2 mg, buccal, Every 2 hour PRN, smoking cessation, Starting on Mon04/24/23 at 0530, Chew gum slowly until it tingles, then park it between your cheek and gum; when tingle disappears, Repeat process until most of the tingle is gone (about 30 min). nicotine polacrilex lozenge 2 mg (NICORETTE) 2 mg, buccal, Every 2 hour PRN, smoking cessation, Starting on Mon04/24/23 at 0530, Dissolve slowly in mouth over 20 to 30 min; occasionally move lozenge from one side of the mouth to the other until completely dissolved. nitroglycerin SL tablet 0.4 mg (NITROSTAT) 0.4 mg, sublingual, Every 5 min PRN, chest pain, Starting on Mon04/25/23 at 0649, For 2 doses, nitroglycerin 0.4 mg sublingual was interchanged for nitroglycerin Dissolve under the tongue. Do NOT crush, chew, split or swallow tablet. Given 04/25/2023 7:02 AM ESCALATOR INSTALLER 0.4 mg Given 04/25/2023 6:51 AM ESCALATOR INSTALLER 0.4 mg predniSONE tablet 40 mg (DELTASONE) 40 mg, oral, Daily, First dose on Mon04/25/23 at 0900, For 4 days Given 04/26/2023 8:08 AM ESCALATOR INSTALLER 40 mg Given 04/25/2023 8:37 AM ESCALATOR INSTALLER 40 mg valsartan tablet 80 mg (DIOVAN) 80 mg, oral, Daily at bedtime, First dose on Mon04/25/23 at 1645 Given 04/25/2023 5:28 PM ESCALATOR INSTALLER 80 mg varenicline tablet 1 mg (CHANTIX) 1 mg, oral, Daily, First dose on Mon04/24/23 at 0900, Drug Monitoring Program: Pharmacist to adjust medication dosing based on indication and drug clearance factors. Given 04/26/2023 8:08 AM ESCALATOR INSTALLER 1 mg Given 04/25/2023 8:37 AM ESCALATOR INSTALLER 1 mg documented in this encounter Active and Recently Administered Medications Times are shown in ESCALATOR INSTALLER. Scheduled Medication Order 04/24/2023 04/25/2023 04/26/2023 amLODIPine tablet 5 mg (NORVASC) 5 mg, oral, Daily, First dose on Mon04/26/23 at 0900 0808 (Given - Provider: Doug Goins) aspirin (buffered) tablet 325 mg 325 mg, oral, Daily, First dose on Mon04/24/23 at 0900 0436 (Held by provider - Provider: Aurea García M.D. - Comment: Full dose aspirin. Awaiting pharmacy check.)0524 (Unheld by provider - Provider: Aurea García M.D.)0913 (Given - Provider: Geovanny F Gowlland, R.N.) 0836 (Given - Provider: Praveen Gasca R.N.) 0808 (Given - Provider: Doug Goins) atorvastatin tablet 40 mg (LIPITOR) (CANCELED) 40 mg, oral, Daily at bedtime, First dose on Mon04/24/23 at 2100 2142 (Given - Provider: Sharon Condon R.N.) 2113 (Given - Provider: Sharon Condon R.N.) atorvastatin tablet 80 mg (LIPITOR) 80 mg, oral, Daily at bedtime, First dose (after last modification) on Mon04/26/23 at 2100 cefdinir capsule 300 mg (OMNICEF) 300 mg, oral, 2 times daily before breakfast and dinner, First dose on Mon04/24/23 at 1600, Administer 2 hours before or 6 hours after taking magnesium, aluminum (antacids, laxatives) or calcium and iron supplements (multivitamins); may be taken with calcium or iron if given with food., Drug Monitoring Program: Pharmacist to adjust medication dosing based on indication and drug clearance factors., Indications: Respiratory tract infection, community acquired 1632 (Given - Provider: Sharon Condon R.N.) 0543 (Given - Provider: Elli Banda R.N.)1728 (Given - Provider: Sharon Condon R.N.) 0509 (Given - Provider: Elli Banda R.N.) cefTRIAXone injection 2 g (ROCEPHIN) (COMPLETED) 2 g, intravenous, Once, On Mon04/24/23 at 0337, For 1 dose, [place] IV push over 3 minutes., Drug Monitoring Program: Pharmacist to adjust medication dosing based on indication and drug clearance factors., Indications: Respiratory tract infection, community acquired 0348 (Given - Provider: Rosina Kumar RJustinNJustin) dexAMETHasone tablet 10 mg (DECADRON) (COMPLETED) 10 mg, oral, Once, On Mon04/24/23 at 0307, For 1 dose 0348 (Given - Provider: Rosina Kumar RJustinN.) doxycycline monohydrate capsule 100 mg (MONODOX) (COMPLETED) 100 mg, oral, Once, On Mon04/24/23 at 0337, For 1 dose, Administer 2 hours before or 6 hours after taking magnesium, aluminum (antacids, laxatives) or calcium and iron supplements (multivitamins). Ensure patient remains upright for 30 minutes post-dose., Indications: Respiratory tract infection, community acquired 0348 (Given - Provider: Rosina Kumar R.N.) doxycycline monohydrate capsule 100 mg (MONODOX) 100 mg, oral, 2 times daily before breakfast and dinner, First dose on Mon04/24/23 at 1400, Administer 2 hours before or 6 hours after taking magnesium, aluminum (antacids, laxatives) or calcium and iron supplements (multivitamins). Ensure patient remains upright for 30 minutes post-dose., Indications: Respiratory tract infection, healthcare associated 1423 (Given - Provider: Geovanny Womack R.N.) 0543 (Given - Provider: Elli Banda R.N.)1728 (Given - Provider: Sharon Condon R.N.) 0509 (Given - Provider: Elli Banda R.N.) enoxaparin injection 40 mg (LOVENOX) 40 mg, subcutaneous, Every 24 hours scheduled, First dose on Mon04/24/23 at 0500 0521 (Not Given - Provider: Tika Hart R.N. - Reason: Patient/family refused) 0837 (Not Given - Provider: Praveen Gasca R.N. - Reason: Patient/family refused) 0810 (Not Given - Provider: Doug Goins - Reason: Patient/family refused) ipratropium-albuteroL 0.5-2.5 mg/3 mL nebulizer solution 3 mL (DUONEB) (COMPLETED) 3 mL, nebulization, Once, On Mon04/24/23 at 0205, For 1 dose 0221 (Given - Provider: Hanna Farah, R.R.T., L.R.T.) ipratropium-albuteroL 0.5-2.5 mg/3 mL nebulizer solution 3 mL (DUONEB) (COMPLETED) 3 mL, nebulization, Once, On Mon04/24/23 at 0205, For 1 dose 0221 (Given - Provider: Hanna Farah, R.R.T., L.R.T.) ipratropium-albuteroL 0.5-2.5 mg/3 mL nebulizer solution 3 mL (DUONEB) 3 mL, nebulization, 4 times daily (RT), First dose on Mon04/24/23 at 0700 0913 (Given - Provider: Geovanny Womack R.N.)1142 (Given - Provider: Geovanny Womack R.N.)1423 (Not Given - Provider: Geovanny Womack R.N. - Reason: Patient/family refused)214 (Given - Provider: Sharon Condon R.N.) 0543 (Given - Provider: Elli Banda R.N.)1209 (Given - Provider: Praveen Gasca R.N.)1545 (Not Given - Provider: Sharon Condon R.N. - Reason: Patient/family refused)2113 (Given - Provider: Sharon Condon R.N.) 0509 (Not Given - Provider: Elli Banda R.N. - Reason: Patient/family refused)1108 (Not Given - Provider: Doug Goins - Reason: Patient/family refused) predniSONE tablet 40 mg (DELTASONE) 40 mg, oral, Daily, First dose on Mon04/25/23 at 0900, For 4 days 0837 (Given - Provider: Praveen Gasca R.N.) 0808 (Given - Provider: Doug Goins) sennosides-docusate sodium 8.6-50 mg per tablet 1 tablet (SENOKOT-S) 1 tablet, oral, 2 times daily, First dose on Mon04/24/23 at 0900, Do not give if patient has diarrhea. 0912 (Not Given - Provider: Geovanny Womack R.N. - Reason: Patient/family refused)2141 (Not Given - Provider: Sharon Condon R.N. - Reason: Patient/family refused) 0837 (Not Given - Provider: Praveen Gasca R.N. - Reason: Patient/family refused)2123 (Not Given - Provider: Sharon Condon R.N. - Reason: Patient/family refused) 0810 (Not Given - Provider: Doug Goins - Reason: Patient/family refused) valsartan tablet 80 mg (DIOVAN) 80 mg, oral, Daily at bedtime, First dose on Mon04/25/23 at 1645 1728 (Given - Provider: Sharon Condon R.N.) varenicline tablet 1 mg (CHANTIX) 1 mg, oral, Daily, First dose on Mon04/24/23 at 0900, Drug Monitoring Program: Pharmacist to adjust medication dosing based on indication and drug clearance factors. 0912 (Not Given - Provider: Geovanny Womack R.N. - Reason: Patient/family refused) 0837 (Given - Provider: Praveen Gasca R.N.) 0808 (Given - Provider: Doug Goins) PRN Medication Order 04/24/2023 04/25/2023 04/26/2023 acetaminophen tablet 1,000 mg (TYLENOL) 1,000 mg, oral, Every 6 hours PRN, mild pain or score 1-3 of 10, moderate pain or score 4-6 of 10, severe pain or score 7-10 of 10, headaches, Starting on Mon04/25/23 at 1815 acetaminophen tablet 650 mg (TYLENOL) (CANCELED) 650 mg, oral, Every 6 hours PRN, mild pain or score 1-3 of 10, Starting on Mon04/24/23 at 0616 1347 (Given - Provider: Geovanny Womack R.N.)2148 (Given - Provider: Sharon Condon R.N.) 0548 (Given - Provider: Elli Banda R.N.)1214 (Given - Provider: Praveen Gasca R.N.) ibuprofen tablet 400 mg (MOTRIN) 400 mg, oral, Every 6 hours PRN, moderate pain or score 4-6 of 10, Starting on Mon04/25/23 at 1221, Take with food or milk if GI disturbances occur with use. 3 (Given - Provider: Sharon Condon R.N.) nicotine 21 mg/24 hr 1 patch (NICODERM CQ) 1 patch, transdermal, Administer over 24 Hours, Daily PRN, For tobacco cravings, Starting on Mon04/24/23 at 0530 0840 (Medication Applied - Provider: Praveen Gasca R.N.) 0811 (Medication Removed - Provider: Doug Goins)0813 (Medication Applied - Provider: Doug Goins)1330 (Due: Medication Removed - Provider: Discharge Provider, Automatic - Comment: Time automatically adjusted from order being discontinued) nicotine polacrilex gum 2 mg (NICORETTE) 2 mg, buccal, Every 2 hour PRN, smoking cessation, Starting on Mon04/24/23 at 0530, Chew gum slowly until it tingles, then park it between your cheek and gum; when tingle disappears, Repeat process until most of the tingle is gone (about 30 min). nicotine polacrilex lozenge 2 mg (NICORETTE) 2 mg, buccal, Every 2 hour PRN, smoking cessation, Starting on Mon04/24/23 at 0530, Dissolve slowly in mouth over 20 to 30 min; occasionally move lozenge from one side of the mouth to the other until completely dissolved. nitroglycerin SL tablet 0.4 mg (NITROSTAT) (COMPLETED) 0.4 mg, sublingual, Every 5 min PRN, chest pain, Starting on Mon04/25/23 at 0649, For 2 doses, nitroglycerin 0.4 mg sublingual was interchanged for nitroglycerin Dissolve under the tongue. Do NOT crush, chew, split or swallow tablet. 0651 (Given - Provider: Elli Banda R.N.)0702 (Given - Provider: Elli Banda R.N.) polyethylene glycol powder packet 17 g (MIRALAX) 17 g, oral, Daily PRN, constipation, Starting on Mon04/24/23 at 0435, Ordered sequence of administration: polyethylene glycol, then bisacodyl until BM achieved. Avoid mixing with starch-based thickened liquids. documented in this encounter Additional Health Concerns Infection Onset Date Last Indicated Resolved Time COVID19 Pending 04/24/2023 04/24/2023 04/24/2023 3 :06 AM ESCALATOR INSTALLER Assessment Noted Time PHQ-9 Depression Total Score: 6 04/29/19 20 12:40 PM ESCALATOR INSTALLER documented as of this encounter Care Teams Merchandising Manager Relationship Specialty Start Date End Date Elsewhere, Pcp PCP - General Internal Medicine 04/24/23 documented as of this encounter
--- OUTSIDE RECORDS SUMMARY | 2023-06-29 11:39 | XMS_ITS | Encounter Summary ---
Author Name Unknown Organization [facility] Address [address] [place] [address] Care Team Providers Care General Operator Name Role Phone Elsewhere, Pcp Primary Care Provider Unavailabl e Reason for Referral * MRI/CAT/PET Scan (Routine) - Closed Specialty Diagnoses / Procedures Referred By Carey escobar Referred To Contact Radiology Diagnoses Shortness Of Breath Procedures CT Chest without IV Contrast Perla Lorenz M.D. [address] [place] [address] [facility] Referral ID Status Reason Start Date Expiration Date Visits Re quested Visits Authorized [id number] Closed 04/24/2023 04/23/2024 1 1 TING CARD EDITOR * Outpatient (Routine) - Closed Specialty Diagnoses / Procedures Referred By Carey escobar Referred To Contact Pulmonary Medicine Diagnoses Shortness Of Breath Perla Lorenz M.D. [address] [place] [address] [facility] Referral ID Status Reason Start Date Expiration Date Visits Re quested Visits Authorized [id number] Closed 04/24/2023 10/23/2024 1 1 TING CARD EDITOR Reason for Visit * Reason Onset Date Comments Post Hospital Follow-up 04/24/2023 Encounter Details Date Type Department Care Team (Latest Contact Info) Description 04/24/2023 Clinical Communication [facility] [address] [place] [address] Perla Lorenz M.D. [address] [place] [address] Post Hospital Follow-up Social History Tobacco Use Types Packs/Day Years Used Date Smoking Tobacco: Every Day Cigarettes 1 55 Started: 03/06/1975 Smokeless Tobacco: Never Alcohol Use Standard Drinks/Week Comments Yes 0 (1 standard drink = 0.6 oz pur e alcohol) [facility] Utilities Answer Date Recorded In the [...] Never 07/20/2019 How often do you attend judaism or congregational serv ices? Never 07/20/2019 Active Member of [...] Answer Date Recorded PHQ-2 Score 2 04/29/2019 [facility] - [...] your living situation today? I have a [facility] place to live 04/24/2023 Education Answer Date Recorded What is the highest level of school you have completed or the highest degree you have received? Associate degree: academic program 02/12/2019 Sex and Gender Information Value Date Recorded Sex Assigned at Female 05/07/2023 12:13 PM GREETING CARD EDITOR Gender Identity Female 07/20/2019 7:51 PM CDT Sexual Orientation Straight 07/20/2019 7: 51 PM CDT documented as of this encounter Plan of Treatment Upcoming Encounters Date Type Department Care Team (Late st Contact Info) Description 07/05/2023 9:30 AM CDT Appointment Department of Laboratory Medicine and Pathology, [facility], in [place], [place] [address] [place] [address] Dilcia Ingram D.O. [address] [place] [phone] 07/05/2023 10:30 AM CDT Hospital Encounter Department of Radiology, [facility], in [place], [place] [address] [place] [address] Dilcia Ingram D.O. [address] [place] [phone] 07/05/2023 1:00 PM CDT Comprehensive Visit Department of Vascular Medicine in [place], [place] [address] [place] [address] Isaiah Manrique M.D. [address] [place] [phone] Scheduled Referrals Name Type Priority Associated Diagnoses Order Schedule Pulmonary Medicine - Chronic obstructive pulmonary disease (COPD) consult (clinic) Outpatient Referral Routine Shortness Of Breath Expected: 05/23/2023 (Approximate), Expires: 07/22/2024 documented as of this encounter Results * Pulmonary Function Tests (05/23/2023 8:40 AM CDT) PostFVC 2.40 L 05/23/2023 6:13 PM CDT [facility] PostFEV1 1.09 L 05/23/2023 6:13 PM CDT [facility] FEV1/FVC POST 45.39 % 05/23/2023 6:13 PM CDT [facility] FEF 25-75 % POST 0.29 L/s 05/23/2023 6:13 PM CDT [facility] PEF POST 3.26 L/s 05/23/2023 6:13 PM CDT [facility] PIF POST 3.04 L/s 05/23/2023 6:13 PM CDT [facility] FEF 50 % FIF 50 POST 11.51 % 05/23/2023 6:13 PM CDT [facility] FET POST 14.52 sec 05/23/2023 6:13 PM CDT [facility] DLCO 10.05 ml/(min*mm Hg) 05/23/2023 6:13 PM CDT [facility] DLCOc 9.96 ml/(min*mm Hg) 05/23/2023 6:13 PM CDT [facility] HB 13.70 g(Hb)/dL 05/23/2023 6:13 PM CDT [facility] VA 4.24 L 05/23/2023 6:13 PM CDT [facility] TLC 5.06 L 05/23/2023 6:13 PM CDT [facility] FRCPLETH PROVBASE 3.39 L 05/23/2023 6:13 PM CDT [facility] RV 2.58 L 05/23/2023 6:13 PM CDT [facility] RV % TLC PRE 50.88 % 05/23/2023 6:13 PM CDT [facility] FVC 1.95 L 05/23/2023 6:13 PM CDT [facility] FEV1 0.89 L 05/23/2023 6:13 PM CDT [facility] FEV1/FVC 45.73 % 05/23/2023 6:13 PM CDT [facility] LSS15-49% 0.24 L/s 05/23/2023 6:13 PM CDT [facility] PEF PRE 3.13 L/s 05/23/2023 6:13 PM CDT [facility] PIF PRE 2.36 L/s 05/23/2023 6:13 PM CDT [facility] FEF 50 % FIF 50 PRE 13.31 % 05/23/2023 6:13 PM CDT [facility] FET PRE 12.10 sec 05/23/2023 6:13 PM CDT [facility] SUBSTANCE POST Albuterol 05/23/2023 6:13 PM CDT [facility] 05/23/2023 8:40 AM CDT Impressions [facility] - 05/23/2023 6:13 PM CDT Abnormal. Moderate [...] vascular process. Perla Lorenz M.D. PFT ORDERABLES [facility] [address] * CT Chest without IV Contrast [...] this encounter Visit Diagnoses Diagnosis Shortness Of Breath- Primary Shortness Of Breath documented in this encounter Additional Health Concerns Infection Onset Date Last Indicated Resolved Time COVID19 Pending 04/24/2023 04/24/2023 04/24/2023 3 :06 AM GREETING CARD EDITOR Assessment Noted Time PHQ-9 Depression Total Score: 6 04/29/19 20 12:40 PM GREETING CARD EDITOR documented as of this encounter Care Teams General Operator Relationship Specialty Start Date End Date Elsewhere, Pcp PCP - General Internal Medicine 04/24/23 documented as of this encounter
--- OUTSIDE RECORDS SUMMARY | 2023-06-29 11:39 | XMS_ITS | Encounter Summary ---
Author Name Unknown Organization [facility] Address [address] [place] [address] Care Team Providers Care Hotel Houseman Name Role Phone Elsewhere, Pcp Primary Care Provider Unavailabl e Reason for Referral * Outpatient (Routine) - Closed Specialty Diagnoses / Procedures Referred By Contac t Referred To Contact Diagnoses Angina Pectoris Tobacco User Procedures Echo Stress Krupa Bates M.D. [address] [place] [address] [facility] Referral ID Status Reason Start Date Expiration Date Visits Re quested Visits Authorized [id number] Closed 04/25/2023 04/24/2024 1 1 . MEDIA MANAGER * Outpatient (Routine) - Closed Specialty Diagnoses / Procedures Referred By Contact Referred To Contact Cardiovascular Diseases / Cardiovascular Disease Diagnoses Angina Pectoris Tobacco User Krupa Bates M.D. [address] [place] [address] [facility] Referral ID Status Reason Start Date Expiration Date Visits Re quested Visits Authorized [id number] Closed 04/25/2023 10/24/2024 1 1 . MEDIA MANAGER Reason for Visit * Reason Onset Date Comments Post Hospital Follow-up 04/25/2023 Encounter Details Date Type Department Care Team (Latest Contact Info) Description 04/25/2023 Clinical Communication [facility] [address] [place] [address] Sanford Villatoro M.D. [address] [place] [address] Post Hospital Follow-up Social History Tobacco Use Types Packs/Day Years Used Date Smoking Tobacco: Every Day Cigarettes 1 55 Started: 03/06/1975 Smokeless Tobacco: Never Alcohol Use Standard Drinks/Week Comments Yes 0 (1 standard drink = 0.6 oz pur e alcohol) [facility] Utilities Answer Date Recorded In the past [...] Never 07/20/2019 How often do you attend scientology or latter-day serv ices? Never 07/20/2019 Active [...] Answer Date Recorded PHQ-2 Score 2 04/29/2019 [facility] - Occupational [...] your living situation today? I have a [facility] place to live 04/24/2023 Education Answer Date Recorded What is the highest level of school you have completed or the highest degree you have received? Associate degree: academic program 02/12/2019 Sex and Gender Information Value Date Recorded Sex Assigned at Female 05/07/2023 12:13 PM SR. MEDIA MANAGER Gender Identity Female 07/20/2019 7:51 PM CDT Sexual Orientation Straight 07/20/2019 7: 51 PM CDT documented as of this encounter Plan of Treatment Upcoming Encounters Date Type Department Care Team (Late st Contact Info) Description 07/05/2023 9:30 AM CDT Appointment Department of Laboratory Medicine and Pathology, [facility] in [place], [place] [address] [place] [address] Dilcia Ingram D.O. [address] [place] [phone] 07/05/2023 10:30 AM CDT Hospital Encounter Department of Radiology, [facility], in [place], [place] [address] [place] [address] Dilcia Ingram D.O. [address] [place] [phone] 07/05/2023 1:00 PM CDT Comprehensive Visit Department of Vascular Medicine in [place], [place] [address] [place] [address] Isaiah Manrique M.D. [address] [place] [phone] Scheduled Referrals Name Type Priority Associated Diagnoses Order Schedule Cardiovascular Disease - General cardiology consult (clinic) Outpatient Referral Routine Angina Pectoris Tobacco User Expected: 04/25/2023 (Approximate), Expires: 07/23/2024 documented as of this encounter Results * ECHO STRESS 2D [...] Bates M.D. CV ECHO PROCEDU RES * Oxygen Titration (05/23/2023 8:36 AM CDT) [...] Bates M.D. PFT ORDERABLES MMODAL NA * Home Overnight Oximetry (05/22/2023) 05/22/2023 Impressions [facility] - 05/24/2023 7:14 AM CDT Overnight oximetry test was performed on room air. ??The patient denied any alcohol or sedative medication on the night of the study and indicated sleep quality was same as usual. ??[place] Sleepiness Scale was 5. ??Baseline oxygen saturation [...] M.B., Ch.B., M.P.H. Physician: Paddy London M.D. [id number] Narrative Procedure Note Paddy London M.D. - 05/24/2023 IMPRESSION: Overnight oximetry test was performed on room air. The patient denied anyalcohol or sedative medication on the night of the study and indicatedsleep quality was same as usual. [place]ight[place] Sleepiness Scale was 5.Baseline oxygen saturation of [...] M.B., ChRadha, M.P.H. Physician: Paddy London M.D. [id number] Krupa Bates M.D. PFT ORDERABLES [facility] documented in this encounter Visit Diagnoses Diagnosis Chronic Obstructive Pulmonary Disease Exacerbation (HCC)- Primary Chronic Obstructive Pulmonary Disease (HCC) Angina Pectoris Tobacco User Chronic Obstructive Pulmonary Disease (HCC) Angina Pectoris Tobacco User documented in this encounter Additional Health Concerns Assessment Noted Time PHQ-9 Depression Total Score: 6 04/29/19 20 12:40 PM SR. MEDIA MANAGER documented as of this encounter Care Teams Hotel Houseman Relationship Specialty Start Date End Date Elsewhere, Pcp PCP - General Internal Medicine 04/24/23 documented as of this encounter
== END 2023-06-26 08:16 | disposition home or self-care (01) ==
LOC: NFLDREF 06-29 11:34
PROVIDERS: PCP Internal Medicine; Referring Provider Internal Medicine; Visit Provider Internal Medicine
DX: E78.5 Hyperlipidemia, unspecified (principal)
CPT/HCPCS: 80061

== ENCOUNTER 2023-09-19 14:58 | Outpatient (CLI) | payer OTHER, SELFPAY ==
--- NOTE | 2023-09-19 15:00 | CRLHL7_ITS ---
For Patients: As a result of the Century Cures Act, medical imaging exams and procedure reports are released immediately into your electronic medical record. You may view this report before your referring provider. If you have questions, please contact your health care provider. BILATERAL SCREENING MAMMOGRAM WITH COMPUTER-AIDED DETECTION AND TOMOSYNTHESIS TECHNIQUE: CC and MLO views were obtained. These mammographic images have been obtained using full-field digital technique. These mammographic images were interpreted with the benefit of computer-aided detection. Breast Tomosynthesis was used in this interpretation. COMPARISON FILM: 02/07/20, 04/13/18, 07/01/16. FINDINGS: There are scattered areas of fibroglandular density. IMPRESSION: There is no radiographic evidence for malignancy. ASSESSMENT: BI-RADS Category 1: Negative RECOMMENDATION: Routine screening mammogram in 1 year. A lay language report of this examination will be provided to the patient. Brad Lal M.D. Diagnostic Radiologist [email or web address] SP/Dictated by: Brad Lal MD @ 09/20/2023 9:34:00 AM (Electronically Signed)
--- OUTSIDE RECORDS SUMMARY | 2023-09-19 15:00 | XMS_ITS ---
Author Organization [facility] Address [address] [place] [address] Care Team Providers Care Adoption Worker Name Role Phone Unavailable Unavailable Unavailable Surgery Details Not on file Complications Check Surgery Details section. Procedure Estimated Blood Loss Check Surgery Details section. Procedure Findings Check Surgery Details section. Procedure Specimens Taken Check Surgery Details section.
--- OUTSIDE RECORDS SUMMARY | 2023-09-19 15:00 | XMS_ITS | Referral Summary ---
Author Organization [facility] Address [address] [place] [address] Care Team Providers Care Tractor Crane Engineer Name Role Phone Elsewhere, Pcp Primary Care Provider Unavailabl e Source Comments Patient records contain information from all sites at [facility]. For routine questions regarding patient records, call [phone] during business hours, M-F 8:00 AM - 5:00 PM Central Time. Record requests for emergency care only can be directed to [phone] at any time.[facility] Encounters Date Type Department Care Team Description 07/05/2023 Orders Only Division of Pulmonary Medicine in [place], [place] [address] [place] [address] Anum Jacobson, AMEENA, C.N.P., D.N.P. Chronic Obstructive Pulmonary Disease (HCC) (Primary Dx) 07/05/2023 9:30 AM CDT - 07/05/2023 10:06 AM CDT Hospital Encounter Department of Laboratory Medicine and Pathology, [facility], in [place], [place] [address] [place] [address] Dilcia Ingram D.O. Abdominal Aortic Aneurysm Without Rupture Unspecified (HCC) Discharge Disposition: Home or Self Care 07/05/2023 1:00 PM CDT Comprehensive Visit Department of Vascular Medicine in [place], [place] [address] [place] [address] Isaiah Manrique M.D. Abdominal Aortic Aneurysm Without Rupture Unspecified (HCC) 07/05/2023 10:07 AM CDT - 07/05/2023 11:59 PM CDT Hospital Encounter Department of Radiology, [facility], in [place], [place] [address] [place] [address] Dilcia Ingram D.O. Abdominal Aortic Aneurysm Without Rupture Unspecified (HCC) Discharge Disposition: Home or Self Care from Last 3 Months Allergies Active Allergy [...] by mouth as needed for pain. Active amLODIPine (NORVASC) 5 mg tablet Take 1 tablet (5 mg total) by mouth daily. 90 tablet 3 04/25/2023 Active valsartan (DIOVAN) 80 mg tablet Take 1 tablet (80 mg total) by mouth at bedtime. 30 tablet 04/25/2023 Active atorvastatin (LIPITOR) 80 mg tabletIndications:St roke (HCC) Take 1 tablet (80 mg total) by mouth at bedtime. 90 tablet 3 04/26/2023 Active nitroglycerin (NITROSTAT) 0.[address] 1 tablet (0.4 mg total) under the tongue every 5 (five) minutes as needed for chest pain. 30 tablet 04/26/2023 Active albuterol 90 mcg/actuation inhalerIndications:S hortness Of Breath,Chronic Obstructive Pulmonary Disease ([facility]) Inhale 2 puffs every 4 (four) hours as needed for wheezing or shortness of breath. 1 g 11 05/23/2023 Active umeclidinium-vilante roL (ANORO ELLIPTA) 62.5-25 mcg/actuation inhalerIndications:C hronic Obstructive Pulmonary Disease ([facility]) Inhale 1 puff daily. 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 Utilities Answer Date Recorded In the past 12 months has e [employer], gas, oil, or water [email or web address] threatened to shut off services in your [...] How often do you attend denominational or buddhist serv ices? Never 07/20/2019 Active Member of [...] Answer Date Recorded PHQ-2 Score 2 04/29/2019 [facility] of Occupat ional Health - Occupational Stress [...] Sex Assigned at Female 05/07/2023 12:13 PM HEEL ATTACHER WOOD Gender Identity Female 07/20/2019 7:51 PM CDT Sexual Orientation Straight 07/20/2019 7: 51 PM CDT Last Filed Vital Signs Vital Sign [place] Time Taken Comments Blood Pressure 142/70 07/05/2023 12:38 PM CDT Pulse 85 07/05/2023 12:38 PM CDT Temperature 36.6 ??C (97.9 ??F) 04/26/2023 12:[address] Respiratory Rate 16 04/26/2023 12:20 PM HEEL ATTACHER WOOD Oxygen Saturation 93% 05/23/2023 1:21 PM CDT Inhaled Oxygen Concentration - - Weight 86.8 kg (191 lb 5.8 oz) 07/05/2023 12:38 PM CDT Height 155.7 cm (5' 1.3) 07/05/2023 12:36 PM CD T Body Mass Index 35.81 07/05/2023 12:36 PM CDT Plan of Treatment Upcoming Encounters Date Type Department Care Team (Late st Contact Info) Description 10/17/2023 2:30 PM CDT Comprehensive Visit [facility] in [place], [place] [address] [place] [phone] Netta Valdez P.A.-C. [address] [place] [phone] 11/24/2023 1:30 PM CDT Clinical Communication Virtual Review in [place], [place] [address] [place] [address] 11/27/2023 9:00 AM CDT Diagnostic Division of Pulmonary Medicine in [place], [place] [address] [place] [phone] Anum Jacobson APRN, C.N.P., D.N.P. [address] [place] [address] 11/27/2023 10:00 AM CDT Office Visit Division of Pulmonary Medicine in [place], [place] [address] [place] [address] Anum Jacobson APRN, C.N.P., D.N.P. [address] [place] [address] Procedures Procedure Name Priority Date/Time Associated Diagnosis Comments US AORTA RAD - Routine (most inpatients and all outpatients) 07/05/2023 11:09 AM CDT Abdominal Aortic Aneurysm Without Rupture Unspecified (HCC) LIPID PANEL, S Routine 07/05/2023 9:54 AM CDT Abdominal Aortic Aneurysm Without Rupture Unspecified (HCC) CT CHEST WITHOUT IV CONTRAST RAD - Routine (most inpatients and all outpatients) 05/22/2023 3:02 PM CDT Shortness Of Breath BASIC METABOLIC PANEL, S/P Routine 04/26/2023 10:43 AM HEEL ATTACHER WOOD from Last 3 Months or Most Recently Relevant to Health Maintenance Results * US Aorta (07/05/2023 11:09 AM CDT) Anatomical Region Laterality Modality Abdomen, Pelvis, Ultrasound RST LOS, Ultrasound ARZ LOS, Ultrasound FLA LOS, Procedural, Vascular Interventional NWWI LOS N/A Ultrasound Impressions 07/05/2023 11:16 AM CDT 1. Small 3.0 x 3.0 cm distal abdominal aortic aneurysm. 2. Normal caliber bilateral common iliac arteries. Narrative 07/05/2023 11:16 AM CDT EXAM: US AORTA COMPARISON: Outside ultrasound dated 05/19/2023; outside CT dated 11/25/2018. FINDINGS: Ultrasound examination of the abdominal aorta and bilateral common iliac arteries. Small 3.0 x 3.0 cm distal abdominal aortic aneurysm, which contains mild atheromatous plaque and/or mural thrombus. The bilateral common iliac arteries are normal in caliber. Aorta: AP - 3.0 cm Aorta: Trans - 3.0 cm Right LUCAS: AP - 0.7 cm Right LUCAS: Trans - 0.7 cm Left LUCAS: AP - 0.8 cm Left LUCAS: Trans - 0.8 cm Procedure Note Mikayla Jimenez M.D. - 07/05/2023 EXAM: US AORTA COMPARISON: Outside ultrasound dated 05/19/2023; outside CT dated11/25/2018. FINDINGS: Ultrasound examination of the abdominal aorta and bilateral common iliacarteries. Small 3.0 x 3.0 cm distal abdominal aortic aneurysm, whichcontains mild atheromatous plaque and/or mural thrombus. The bilateralcommon iliac arteries are normal in caliber. Aorta: AP - 3.0 cm Aorta: Trans - 3.0 cm Right LUCAS: AP - 0.7 cm Right LUCAS: Trans - 0.7 cm Left LUCAS: AP - 0.8 cm Left LUCAS: Trans - 0.8 cm IMPRESSION: 1. Small 3.0 x 3.0 cm distal abdominal aortic aneurysm. 2. Normal caliber bilateral common iliac arteries. Dilcia HUNTER US PROCEDURES * Lipid Panel (07/05/2023 9:54 AM CDT) [facility] Triglycerides 68 mg/dL 07/05/2023 10:52 AM CDT DTL Comment: ----REFERENCE VALUE---- Normal: <150 mg/dL Borderline High: 150-199 mg/dL High: 200-499 mg/dL Very High: > or =500 mg/dL Cholesterol, Total 146 mg/dL 2023 10:52 AM CDT DTL Comment: ----REFERENCE VALUE---- Desirable: < 200 mg/dL Borderline High: 200 - 239 mg/dL High: > or = 240 mg/dL Cholesterol, LDL, Calculated 62 mg/dL 07/05/2023 10:52 AM CDT DTL Comment: ----REFERENCE VALUE---- Desirable: <100 mg/dL Above Desirable: 100-129 mg/dL Borderline High: 130-159 mg/dL High: 160-189 mg/dL Very High: >=190 mg/dL ----ADDITIONAL INFORMATION---- LDL cholesterol calculated using the Cee/NIH equation. Cholesterol, HDL, S 70 >=50 mg/dL 07/05/2023 10:52 AM CDT DTL Cholesterol, Non-HDL, Calculated 76 mg/dL 07/05/2023 10:52 AM CDT DTL Comment: ----REFERENCE VALUE---- Desirable: <130 mg/dL Above Desirable: 130-159 mg/dL Borderline High: 160-189 mg/dL High: 190-219 mg/dL Very High: > or =220 mg/dL Fasting (8 HR or more) No 07/05/2023 10:35 AM CDT DTL Blood (Blood, Venous) 07/05/2023 9:54 AM CDT 07/05/2023 10:35 AM CDT Dilcia Ingram D.O. LAB BLOOD ADD-ON [facility] 200 [place] [address], [facility] 200 [place] [address] * CT Chest without IV Contrast (05/22/2023 [...] Severe coronary artery calcification. Perla Lorenz M.D. aSvana CT PROCEDURES * Basic Metabolic Panel (04/26/2023 10:43 AM HEEL ATTACHER WOOD) Potassium, S 4.9 3.6 - 5.2 mmol/L 04/26/2023 12:05 PM HEEL ATTACHER WOOD DTL Sodium, S 137 135 - 145 mmol/L 04/26/2023 12:05 PM HEEL ATTACHER WOOD DTL Chloride, S 99 98 - 107 mmol/L 04/26/2023 12:05 PM HEEL ATTACHER WOOD DTL Bicarbonate, S 28 22 - 29 mmol/L 04/26/2023 12:05 PM HEEL ATTACHER WOOD DTL Anion Gap 10 7 - 15 04/26/2023 12:05 PM HEEL ATTACHER WOOD DTL BUN (Blood Urea Nitrogen), S 19 6 - 21 mg/dL 04/26/2023 12:05 PM HEEL ATTACHER WOOD DTL Creatinine 0.63 0.59 - 1.04 mg/dL 04/26/2023 12:05 PM HEEL ATTACHER WOOD DTL Estimated GFR (eGFR) >90 >=60 mL/min/BSA 04/26/2023 12:05 PM HEEL ATTACHER WOOD DTL Comment: Estimated GFR calculated using the 2020 CKD_EPI creatinine equation. Calcium, Total, S 9.3 8.8 - 10.2 mg/dL 04/26/2023 12:05 PM HEEL ATTACHER WOOD DTL Glucose, S 95 70 - 140 mg/dL 04/26/2023 12:05 PM HEEL ATTACHER WOOD DTL Blood (Blood, Venous) 04/26/2023 10:43 AM HEEL ATTACHER WOOD 04/26/2023 11:31 AM HEEL ATTACHER WOOD Krupa Bates M.D. LAB BLOOD ADD-O N [facility] [address] [place] [address], [facility] [address] [place] [address] from Last 3 Months or Most Recently Relevant to Health Maintenance Advance Directives For more information, please contact: [phone] * Full Code (Latest Code Status on File) Date Activated Date Inactivated Comments 04/24/2023 5:03 AM 04/26/2023 3:35 PM Question Answer Comments Full Code: Discussed * Full Code Date Activated Date Inactivated Comments 01/04/2019 11:20 PM 01/05/2019 7:41 PM Question Answer Comments Full Code: Discussed Care Teams Tractor Crane Engineer Relationship Specialty Start Date End Date Elsewhere, Pcp PCP - General Internal Medicine 04/24/23
--- OUTSIDE RECORDS SUMMARY | 2023-09-19 15:00 | XMS_ITS | Clinical Summary ---
Author Organization [facility] Address [address] [place] [address] Care Team Providers Care Offset Proof Press Operator Name Role Phone Elsewhere, Pcp Primary Care Provider Unavailabl e Source Comments Patient records contain information from all sites at [facility]. For routine questions regarding patient records, call [phone] during business hours, M-F 8:00 AM - 5:00 PM Central Time. Record requests for emergency care only can be directed to [phone] at any time.[facility] Allergies Active Allergy Reactions Criticality Noted Date [...] 11 04/25/2023 Active atorvastatin (LIPITOR) 80 mg tabletIndications:St roke (HCC) Take 1 tablet (80 mg total) by mouth at bedtime. 90 tablet 3 04/26/2023 Active nitroglycerin (NITROSTAT) 0.[address] 1 tablet (0.4 mg total) under the tongue every 5 (five) minutes as needed for chest pain. 30 tablet 04/26/2023 Active albuterol 90 mcg/actuation inhalerIndications:S hortness Of Breath,Chronic Obstructive Pulmonary Disease (HCC) Inhale 2 puffs every 4 (four) hours as needed for wheezing or shortness of breath. 1 g 11 05/23/2023 Active umeclidinium-vilante roL (ANORO ELLIPTA) 62.5-25 mcg/actuation inhalerIndications:C hronic Obstructive Pulmonary Disease (HCC) Inhale 1 puff daily. 60 each 11 07/05/2023 Active Active Problems Problem Noted Date Diagnosed Date Hypoxia 04/26/2023 Abuse Tobacco Smoking 04/26/2023 Counseling Smoking Cessation 04/26/2023 Atherosclerotic Heart Diseas e [place] Coronary Artery With Other Forms Angina Pectoris [...] Date Type Department Care Team Description 07/05/2023 1:00 PM CDT Comprehensive Visit Department of Vascular Medicine in [place], [place] [address] [place] [address] Isaiah Manrique M.D. Abdominal Aortic Aneurysm Without Rupture Unspecified (HCC) 07/05/2023 10:07 AM CDT - 07/05/2023 11:59 PM CDT Hospital Encounter Department of Radiology, [facility], in [place], [place] [address] [place] [address] Brunton, Dilcia E, D.O. Abdominal Aortic Aneurysm Without Rupture Unspecified (HCC) Discharge Disposition: Home or Self Care 07/05/2023 9:30 AM CDT - 07/05/2023 10:06 AM CDT Hospital Encounter Department of Laboratory Medicine and Pathology, [facility], in [place], [place] [address] [place] [address] Dilcia Ingram D.O. Abdominal Aortic Aneurysm Without Rupture Unspecified (HCC) Discharge Disposition: Home or Self Care 07/05/2023 Orders Only Division of Pulmonary Medicine in [place], [place] [address] [place] [address] Anum Jacobson, AMEENA, C.N.P., D.N.P. Chronic Obstructive Pulmonary Disease (HCC) (Primary Dx) from Last 3 Months Immunizations Name Administration Dates Next Due H1N1 All Forms 12/31/2008 Influenza, Unspecified 12/09/2009 Family History Medical History Relation Name Comments Dementia Brother Mckinley Lorena Early onset Alzheimer? s Alcohol abuse Father Francisco Carrillo Jr Suicide Attempts Father Francisco Carrillo Jr Coronary artery disease Maternal Grandfather Gallo Go dwin Hyperlipidemia Maternal Grandfather Gallo Banks Skin cancer Maternal Grandfather Gallo Banks Arthritis Mother Tiffanie Bravo Dementia Mother Tiffanie Bravo Diabetes Mother Tiffanie Bravo Hyperlipidemia Mother Tiffanie Bravo Alcohol abuse Paternal Grandfather Francisco alvarado Sr Alcohol abuse Paternal Grandmother Marge [place] ADD Son 1 Tyrell Allison Drug abuse Son 1 Tyrell Keegan Psychiatric Son 1 Tyrell Keegan ADD Son 2 Raymundo Keegan Relation Name Status Comments Brother Mckinley Corrigancaroline Father Francisco Carrillo Jr Maternal Grandfather Gallo Newcomb Mother Tiffanie Bravo Paternal Grandfather Francisco alvarado Sr Paternal Grandmother Marge [place] Son 1 Tyrell Keegan Son 2 Raymundo Allison Social History Tobacco Use Types Packs/Day Years Used Date Smoking Tobacco: Former Cigarettes 1 49.1 0 03/14/1974 - 04/24/2023 Smokeless Tobacco: Never Tobacco Cessation:Counseling Given: Not Answered Alcohol Use Standard Drinks/Week Comments Yes 0 (1 standard drink = 0.6 oz pur e alcohol) Very very rarely [facility] Utilities Answer Date Recorded In the past 12 months has [employer], gas, oil, or water [employer] threatened to shut off services in your [...] Never 07/20/2019 How often do you attend adventist or baptism serv ices? Never 07/20/2019 Active Member of [...] Answer Date Recorded PHQ-2 Score 2 04/29/2019 [facility] [place] of Occupat ional Health - Occupational Stress [...] your living situation today? [facility] 05/17/2023 Education Answer Date Recorded What is the highest level of school you have completed or the highest degree you have received? Associate degree: academic program 02/12/2019 Sex and Gender Information Value Date Recorded Sex Assigned at Female 05/07/2023 12:13 PM REVENUE STAMP CLERK Gender Identity Female 07/20/2019 7:51 PM CDT Sexual Orientation Straight 07/20/2019 7: 51 PM CDT Last Filed Vital Signs Vital Sign [place] Time Taken Comments Blood Pressure 142/70 07/05/2023 12:38 PM CDT Pulse 85 07/05/2023 12:38 PM CDT Temperature 36.6 ??C (97.9 ??F) 04/26/2023 12:[address] Respiratory Rate 16 04/26/2023 12:20 PM REVENUE STAMP CLERK Oxygen Saturation 93% 05/23/2023 1:21 PM CDT [...] Comprehensive Visit [facility] in [place], [place] [address] [place] [phone] Netta Valdez P.A.-C. [address] [place] [phone] 11/24/2023 1:30 PM CDT Clinical Communication Virtual Review in [address] [phone] 11/27/2023 9:00 AM CDT Diagnostic Division of Pulmonary Medicine in [address] [phone] Anum Jacobson, AMEENA, C.N.P., D.N.P. [address] [place] [phone] 11/27/2023 10:00 AM CDT Office Visit Division of Pulmonary Medicine in [address] [phone] Anum Jacobson APRN, C.N.P., D.N.P. [address] [place] [phone] Health Maintenance Due Date Last Done Comments CT Colonography 1960 Cologuard 1960 Colonoscopy 1960 Colorectal Cancer Surveillance 1960 HIV Screening 1960 Hepatitis C Screening 1960 Mammogram 1960 Cervical Cancer Screening 06/21/2019 06/20/2016 Zoster Vaccines (2 of 2) 03/31/2020 02/04/2020 COVID-19 Vaccine (2022-2 4 season) 2022 04/27/2021, 03/24/2020, 02/26/2020 Depression Screening (Annual PHQ-2) 03/06/2023 Office Visit for Blood Press ure Check / Re-check 10/05/2023 07/05/2023 Influenza Vaccine (#1) 2023 3, 01/07/2022, 12/12/2020, Additional history exists Creatinine Level (Kidney Fun ction Test) 04/26/2024 04/26/2023, 04/25/2023, 04/24/2023, Additional history exists Potassium Level 04/26/2024 04/26/2023, 04/07, 04/24/2023, Additional history exists Sodium Level 04/26/2024 04/26/2023, 04/07, 04/24/2023, Additional history exists Lung Cancer Screening 05/21/2024 05/22/2023 Fasting Glucose for Diabetes Screening 04/26/2026 04/26/2023, 04/25/2023, 04/24/2023, Additional history exists Lipid (Cholesterol) Screening 07/04/2028, 04/25/2023, 02/12/2019, Additional history exists DTaP,Tdap,and Td Vaccines (3 - Td or Tdap) 02/03/2030 02/04/2020, 09/01/2009 Pneumococcal vaccine (0-64 years) Completed 023 Procedures Procedure Name Priority Date/Time Associated Diagnosis [...] METABOLIC PANEL, S/P Routine 04/26/2023 10:43 AM REVENUE STAMP CLERK from Last 3 Months or Most Recently [...] * Lipid Panel (07/05/2023 9:54 AM CDT) Triglycerides 68 mg/dL 07/05/2023 10:52 AM CDT [...] CDT Dilcia Ingram D.O. LAB BLOOD ADD-ON [facility] [address] [place] [address], [facility] [address] [place] [address] * CT Chest without IV Contrast (05/22/2023 [...] coronary artery calcification. Perla HUNTER CT PROCEDURES * Basic Metabolic Panel (04/26/2023 10:43 AM REVENUE STAMP CLERK) Potassium, S 4.9 3.6 - 5.2 mmol/L 04/26/2023 12:05 PM REVENUE STAMP CLERK DTL Sodium, S 137 135 - 145 mmol/L 04/26/2023 12:05 PM REVENUE STAMP CLERK DTL Chloride, S 99 98 - 107 mmol/L 04/26/2023 12:05 PM REVENUE STAMP CLERK DTL Bicarbonate, S 28 22 - 29 mmol/L 04/26/2023 12:05 PM REVENUE STAMP CLERK DTL Anion Gap 10 7 - 15 04/26/2023 12:05 PM REVENUE STAMP CLERK DTL BUN (Blood Urea Nitrogen), S 19 6 - 21 mg/dL 04/26/2023 12:05 PM REVENUE STAMP CLERK DTL Creatinine 0.63 0.59 - 1.04 mg/dL 04/26/2023 12:05 PM REVENUE STAMP CLERK DTL Estimated GFR (eGFR) >90 >=60 mL/min/BSA 04/26/2023 12:05 PM REVENUE STAMP CLERK DTL Comment: Estimated GFR calculated using the 2020 CKD_EPI creatinine equation. Calcium, Total, S 9.3 8.8 - 10.2 mg/dL 04/26/2023 12:05 PM REVENUE STAMP CLERK DTL Glucose, S 95 70 - 140 mg/dL 04/26/2023 12:05 PM REVENUE STAMP CLERK DTL Blood (Blood, Venous) 04/26/2023 10:43 AM REVENUE STAMP CLERK 04/26/2023 11:31 AM REVENUE STAMP CLERK Krupa Bates M.D. LAB BLOOD ADD-O N [facility] [address] [place] [address], [facility] [address] [place] [address] from Last 3 Months or Most Recently Relevant to Health Maintenance Advance Directives For more information, please contact: [phone] * Full Code (Latest Code Status on File) Date Activated Date Inactivated Comments 04/24/2023 5:03 AM 04/26/2023 3:35 PM Question Answer Comments Full Code: Discussed * Full Code Date Activated Date Inactivated Comments 01/04/2019 11:20 PM 01/05/2019 7:41 PM Question Answer Comments Full Code: Discussed Care Teams Offset Proof Press Operator Relationship Specialty Start Date End Date Elsewhere, Pcp PCP - General Internal Medicine 04/24/23
--- OUTSIDE RECORDS SUMMARY | 2023-09-19 15:01 | XMS_ITS | Encounter Summary ---
Author Organization [facility] Address [address] [place] [address] Care Team Providers Care Sales Account Director Name Role Phone Elsewhere, Pcp Primary Care Provider Unavailabl e Encounter Details Date Type Department Care Team (Late st Contact Info) Description 06/01/2023 Clinical Communication Division of Pulmonary Medicine in [place], [place] [address] [place] [address] Trav Brice M.D. [address] [place] [phone] Social History Tobacco Use Types Packs/Day Years [...] Never 07/20/2019 How often do you attend methodist or voodoo serv ices? Never 07/20/2019 Active Member of [...] Answer Date Recorded PHQ-2 Score 2 04/29/2019 [facility] [place] of Occupat ional Health - Occupational Stress [...] your living situation today? [facility] 05/17/2023 Education Answer Date Recorded What is the highest level of school you have completed or the highest degree you have received? Associate degree: academic program 02/12/2019 Sex and Gender Information Value Date Recorded Sex Assigned at Female 05/07/2023 12:13 PM COMPUTER OPERATIONS TECHNICIAN Gender Identity Female 07/20/2019 7:51 PM CDT Sexual Orientation Straight 07/20/2019 7: 51 PM CDT documented as of this encounter Miscellaneous Notes * Telephone Encounter - Gabriel Bates - 09/11/2023 3:28 PM CDT This was signed and faxed on 09/11/23 Sent to Luis fax: [phone] documented in this encounter Plan of Treatment Upcoming Encounters Date Type Department Care Team (Late st Contact Info) Description 10/17/2023 2:30 PM CDT Comprehensive Visit [facility] in [place], [place] [address] [place] [phone] Netta Valdez P.A.-C. [address] [place] [phone] 11/24/2023 1:30 PM CDT Clinical Communication Virtual Review in [place], [place] [address] [place] [phone] 11/27/2023 9:00 AM CDT Diagnostic Division of Pulmonary Medicine in [place], [place] [address] [place] [phone] Anum Jacobson APRN, C.N.P., D.N.P. [address] [place] [phone] 11/27/2023 10:00 AM CDT Office Visit Division of Pulmonary Medicine in [place], [place] [address] [place] [phone] Anum Jacobson APRN, C.N.P., D.N.P. [address] [place] [phone] documented as of this encounter Visit Diagnoses Diagnosis Chronic Obstructive Pulmonary Disease (HCC)- Primary documented in this encounter Additional Health Concerns Assessment Noted Time PHQ-9 Depression Total Score: 6 04/29/19 20 12:40 PM COMPUTER OPERATIONS TECHNICIAN documented as of this encounter Care Teams Sales Account Director Relationship Specialty Start Date End Date Elsewhere, Pcp PCP - General Internal Medicine 04/24/23 documented as of this encounter
--- OUTSIDE RECORDS SUMMARY | 2023-09-19 15:01 | XMS_ITS | Encounter Summary ---
Author Organization [facility] Address [address] [place] [address] Care Team Providers Care Validation Specialist Name Role Phone Elsewhere, Pcp Primary Care Provider Unavailabl e Reason for Visit * Outpatient (Routine) - Closed Specialty Diagnoses / Procedures Referred By Carey escobar Referred To Contact Vascular Medicine Diagnoses Aneurysm Abdominal Aortic Personal History Rupali Tate M.D. [address] [place] [address] [facility] Referral ID Status Reason Start Date Expiration Date Visits Re quested Visits Authorized [id number] Closed 05/23/2023 11/21/2024 1 1 Encounter Details Date Type Department Care Team (Latest Contact Info) Description 07/05/2023 1:00 PM CDT Comprehensive Visit Department of Vascular Medicine in [place], [place] [address] [place] [phone] Isaiah Manrique M.D. [address] [place] [phone] Abdominal Aortic Aneurysm Without Rupture Unspecified (HCC) Social History Tobacco Use Types Packs/Day Years Used Date Smoking Tobacco: Former Cigarettes 1 49.1 0 03/14/1974 - 04/24/2023 Smokeless Tobacco: Never Alcohol Use Standard Drinks/Week Comments Yes 0 (1 standard drink = 0.6 oz pur e alcohol) Very very rarely [facility] Utilities Answer Date Recorded In the past [...] Never 07/20/2019 How often do you attend worship or confucianism serv ices? Never 07/20/2019 Active Member of [...] Date Recorded PHQ-2 Score 2 04/29/2019 [facility] of Occupat ional Health - Occupational Stress [...] your living situation today? I have a [facility] place to live 05/17/2023 Education Answer Date Recorded What is the highest level of school you have completed or the highest degree you have received? Associate degree: academic program 02/12/2019 Sex and Gender Information Value Date Recorded Sex Assigned at Female 05/07/2023 12:13 PM WHIRLEY OPERATOR Gender Identity Female 07/20/2019 7:51 PM CDT Sexual Orientation Straight 07/20/2019 7: 51 PM CDT documented as of this encounter Last Filed Vital Signs Vital Sign Reading Time Taken Comments Blood Pressure 142/70 07/05/2023 12:38 PM CDT Pulse 85 07/05/2023 12:38 PM CDT Temperature - - Respiratory Rate - - Oxygen Saturation - - Inhaled Oxygen Concentration - - Weight 86.8 kg (191 lb 5.8 oz) 07/05/2023 12:38 PM CDT Height 155.7 cm (5' 1.3) 07/05/2023 12:36 PM CD T Body Mass Index 35.81 07/05/2023 12:36 PM CDT documented in this encounter Consult Notes * Isaiah Manrique M.D. - 07/05/2023 1:00 PM CDT REFERRAL SOURCE Rupali Tate M.D. [address] [place] [phone] SUBJECTIVE CHIEF COMPLAINT / REASON FOR VISIT Abdominal aortic aneurysm HISTORY OF PRESENT ILLNESS Ms. Allison is a 62 y.o. female that I am seeing today for a longstanding asymptomatic abdominal aortic aneurysm. She says this was an incidental finding on an imaging study for reasons she can not recall. Family history is negative. Her primary risk factor is a greater than 40 year history of smoking. She quit 3 months ago. She has coronary disease (heavy calcification seen on CT but negative recent dobutamine stress echocardiogram with normal EF) and COPD. She is not diabetic. Hypertension was diagnosed in April of this year when she was ill with a COPD exacerbation/pneumonia. Her bloodpressure is under active management. She is on high-intensity statin therapy. No clear history of cl audication. She says walking is limited by dyspnea. Current ultrasound shows her abdominal aorta at3.0 x 3.0 cm. Common iliac arteries are normal in size. Ultrasound of 2019 describes the abdominal aorta as having a greatest diameter of 2.7 cm. OBJECTIVE VITALS BP 142/70 (BP Location: Left arm, Patient Position: Sitting) Pulse 85 Ht 155.7 cm Wt 86.8 kg BMI 35.81 kg/m?? PHYSICAL EXAMINATION Body mass index is 35.81 kg/m??. General: Alert oriented x3. No acute distress. Psychiatric: Normal mood and affect. Pleasant and cooperative. Gait: Stable Lungs: Clear with good air entry bilaterally. Heart: Regular rate and rhythm. Normal S1 and S2. No gallops murmurs or rubs. No jugular venous distention. Normal carotid upstroke. Abdomen: Soft and nontender without appreciable masses organomegaly or bruits. Region of her abdominal aortic aneurysm is nontender. Extremities: No cyanosis, clubbing, or edema. The feet are pink and warm and appear adequately perfused. ASSESSMENT / PLAN #1 Abdominal Aortic Aneurysm Without Rupture Unspecified (HCC) She has a small asymptomatic abdominal aortic aneurysm with a maximum diameter of 3 cm. The aneurysm is quite stable, having grown only 3 mm over the last 5 years. This is less than the expected rateof growth which may be on the order of a couple of mm a year. The aneurysm is very low risk, with an annual rupture risk less than 1%. Most importantly, she recently stopped smoking. I congratulated her in this regard. Smoking increases the rate of growth and the risk of rupture. Blood pressure is under active management. I cautioned her against heavy lifting or straining but she should otherwisekeep active. Suggest that her aneurysm could be reimaged in another year or two. Criteria for electi ve repair of asymptomatic abdominal aortic aneurysms in women include a maximum diameter of 5 cm orgreater or rapid growth such as 1 cm in 1 year. We discussed screening of first-degree relatives. Her brother is in his 60s but has dementia and she does not think screening would be appropriate. Suggested that her children be screened in their 60s. I have not scheduled any follow-up with me but I would be happy to see her back in the future should the need arise. Questions answered. No apparent barriers to learning identified. She is in agreement with the above approach. Isaiah Manrique M.D. documented in this encounter Plan of Treatment Upcoming Encounters Date Type Department Care Team (Late st Contact Info) Description 10/17/2023 2:30 PM CDT Comprehensive Visit [facility] in [place], [place] [address] [place] [phone] Netta Valdez P.A.-C. [address] [place] [phone] 11/24/2023 1:30 PM CDT Clinical Communication Virtual Review in [place], [place] 200 [place] [phone] 11/27/2023 9:00 AM CDT Diagnostic Division of Pulmonary Medicine in [place], [place] [address] [place] [phone] Anum Jacobson, AMEENA, C.N.P., D.N.P. [address] [place] [phone] 11/27/2023 10:00 AM CDT Office Visit Division of Pulmonary Medicine in [place], [place] [address] [place] [phone] Anum Jacobson, AMEENA, C.N.P., D.N.P. [address] [place] [phone] documented as of this encounter Visit Diagnoses Diagnosis Abdominal Aortic Aneurysm Without Rupture Unspecified (HCC) documented in this encounter Additional Health Concerns Assessment Noted Time PHQ-9 Depression Total Score: 6 04/29/19 20 12:40 PM WHIRLEY OPERATOR documented as of this encounter Care Teams Validation Specialist Relationship Specialty Start Date End Date Elsewhere, Pcp PCP - General Internal Medicine 04/24/23 documented as of this encounter
--- OUTSIDE RECORDS SUMMARY | 2023-09-19 15:01 | XMS_ITS | Encounter Summary ---
Author Organization [facility] Address [address] [place] [address] Care Team Providers Care Finish Inspector Name Role Phone Elsewhere, Pcp Primary Care Provider Unavailabl e Reason for Visit * Outpatient (Routine) - Closed Specialty Diagnoses / Procedures Referred By Carey escobar Referred To Contact Nicotine Dependence Dnio Castillo M.A. [facility] Referral ID Status Reason Start Date Expiration Date Visits Re quested Visits Authorized [id number] Closed 05/12/2023 11/10/2024 1 1 Encounter Details Date Type Department Care Team (Late st Contact Info) Description 06/19/2023 11:30 AM CDT Virtual Visit Department of Nicotine Dependence, [facility], in [place], [place] [address] [place] [phone] Dino Castillo M.A. Nicotine Dependence Cigarettes With Withdrawal (Primary Dx) Social History Tobacco Use Types Packs/Day Years Used Date Smoking Tobacco: Former Cigarettes 1 49.1 0 03/14/1974 - 04/24/2023 Smokeless Tobacco: Never Alcohol Use Standard Drinks/Week Comments Yes 0 (1 standard drink = 0.6 oz pur e alcohol) Very very rarely [facility] Utilities Answer Date Recorded In the past 12 months has [employer] electric, gas, oil, or water company threatened [...] Never 07/20/2019 How often do you attend hindu or cheondoism serv ices? Never 07/20/2019 Active [...] Answer Date Recorded PHQ-2 Score 2 04/29/2019 [facility] of Occupat ional Health - Occupational Stress [...] your living situation today? I have a [facility] place to live 05/17/2023 Education Answer Date Recorded What is the highest level of school you have completed or the highest degree you have received? Associate degree: academic program 02/12/2019 Sex and Gender Information Value Date Recorded Sex Assigned at Female 05/07/2023 12:13 PM TUBE PULLER Gender Identity Female 07/20/2019 7:51 PM CDT [...] Comprehensive Visit [facility] in [address] [phone] Netta Valdez P.A.-C. [address] [place] [phone] 11/24/2023 1:30 PM CDT Clinical Communication Virtual Review in [address] [phone] 11/27/2023 9:00 AM CDT Diagnostic Division of Pulmonary Medicine in [address] [phone] Anum Jacobson APRN, C.N.P., D.N.P. [address] [place] [phone] 11/27/2023 10:00 AM CDT Office Visit Division of Pulmonary Medicine in [address] [phone] Anum Jacobson APRN, C.N.P., D.N.P. [address] [place] [phone] documented as of this encounter Visit Diagnoses Diagnosis Nicotine Dependence Cigarettes With Withdrawal- Primary documented in this encounter Additional Health Concerns Assessment Noted Time PHQ-9 Depression Total Score: 6 04/29/19 20 12:40 PM TUBE PULLER documented as of this encounter Care Teams Finish Inspector Relationship Specialty Start Date End Date Elsewhere, Pcp PCP - General Internal Medicine 04/24/23 documented as of this encounter
--- OUTSIDE RECORDS SUMMARY | 2023-09-19 15:01 | XMS_ITS | Clinical Summary ---
Author Organization [facility] [facility] Address [place], [place] [address] Care Team Providers Care Forensic Medical Examiner Name Role Phone Rupali Tate MD Primary Care Provider [phone] Allergies Active Allergy Reactions Criticality Noted Date Comments Penicillins Edema 02/18/2016 Penicillin injectables ONLY Sulfa (Sulfonamide Antibiotics) Hives 02/18/2016 Medications Medication Sig Dispensed Refills Start Date End Date Status VENTOLIN HFA 90 mcg/actuation inhaler 3 11/20/2018 Act harriet predniSONE (DELTASONE) 20 mg tablet Take 20 mg by mouth once daily. 0 12/20/2018 Active venlafaxine (EFFEXOR XR) 150 mg Extended-Release capsule Take 150 mg by mouth once daily in the afternoon. 3 03/12/2018 Active methylPREDNISolone (MEDROL DOSEPAK) 4 mg tablet Take 4 mg by mouth once daily with evening meal. 0 09/14/2018 Active atorvastatin (LIPITOR) 20 mg tabletIndications:Athe rosclerosis of coronary artery, angina presence unspecified, unspecified vessel or lesion type, unspecified whether yuhaaviatam or transplanted heart Take 1 tablet by mouth once daily. 90 tablet 3 01/02/2019 Active Active Problems No known active problems Social History Tobacco Use Types Packs/Day Years Used Date Smoking Tobacco: Every Day Cigarettes 0.5 47.7 Started: 01/03/1976 Smokeless Tobacco: Never Tobacco Cessation:Ready to Q uit: No; Counseling Given: Yes Comments:some current tobacco use Alcohol Use Standard Drinks/Week Comments Yes 0 (1 standard drink = 0.6 oz pur e alcohol) Seldom Social Connections Answer Date Recorded Frequency of Communication with Friends and Fami ly Not on file 05/04/2021 Financial Resource Strain Answer Date R ecorded Difficulty of Paying Living Expenses Not on file 05/04/2021 Difficulty of Paying Living Expenses Not on file 05/04/2021 Sex and Gender Information Value Date Recorded Sex Assigned at Not on file Gender Identity Not on file Sexual Orientation Not on file Obstetrics History Last Filed Vital Signs Vital Sign Reading Time Taken Comments Blood Pressure 126/68 01/02/2019 12:51 PM CDT Pulse 102 01/02/2019 12:51 PM CDT Temperature 36.8 ??C (98.3 ??F) 02/18/2016 10:[address] Respiratory Rate - - Oxygen Saturation 95% 01/02/2019 12:51 PM CDT Inhaled Oxygen Concentration - - Weight 78.3 kg (172 lb 9.6 oz) 01/02/2019 12:51 PM CDT Height 154.9 cm (5' 1) 01/02/2019 12:51 PM CDT Body Mass Index 32.61 01/02/2019 12:51 PM CDT Plan of Treatment Health Maintenance Due Date Last Done Comments Tdap 12/06/1971 Depression screening for age 12+ 1972 HIV for age 15-65 12/06/1975 Hepatitis C screening for ag e 18-79 1978 Tetanus booster 1980 Colonoscopy through age 75 2005 Lipids for age 45-75 2005 Mammogram for age 45-75 2005 Zoster (shingles) series for age 50+ (1 of 2) 2010 Pap test for age 21-65 06/21/2019 7, 06/20/2016 BMI (ht and wt on same day) for age 18+ 01/03/2020 01/02/2019, 02/18/2016 COVID-19 vaccine series (2022-24 season) 2022 Influenza for age 50-64 11/05/2023 Pneumococcal series for age 6-64 Aged Out No longer eligible b ased on patient's age to complete this topic Procedures Procedure Name Priority Date/Time Associated Diagnosis Comments CLINICAL INFORMATICS PHYSICIAN THIN PREP PAP SCREEN IMAGED Routine 06/20/2016 5:30 PM CDT from Last 3 Months or Most Recently Relevant to Health Maintenance Results * CLINICAL INFORMATICS PHYSICIAN THIN PREP PAP SCREEN IMAGED (06/20/2016 5:30 PM CDT) Case Report Gynecologic Cytology Report ? Case: [id number] ? Authorizing Provider: ??Unknown, Doctor ?Collected: ? 06/20/2016 1730 ? First Screen: ?Perlita Mann ?Received: ?06/22/2016 1226 ? Specimen: ?CLINICAL INFORMATICS PHYSICIAN ThinPrep Vial Screening, Cervical/Vaginal ? 06/30/2016 11:31 AM CDT [facility] INTERPRETATION/ RESULT NEGATIVE FOR INTRAEPITHELIAL LESION OR MALIGNANCY (NIL) (none) 06/30/2016 11:31 AM CDT [facility] [employer] [facility] ENTRAL LABORATORY IMEN ADEQUACY Satisfactory for evaluation Endocervical component present 06/30/2016 11:31 AM CDT [facility] [employer] LABORATORY ENTRAL LABORATORY HPV REQUEST HPV and PAP 06/30/2016 11:31 AM CDT [facility] LABORATORY-C ENTRAL LABORATORY Last Pap Date 02/20/2012 06/30/2016 11:31 AM CDT [facility] [employer] LABORATORY-C ENTRAL LABORATORY Last Pap Result NIL 7 11:31 AM CDT [facility] [employer] LABORATORY-C ENTRAL LABORATORY Menstrual Status 06/30/2016 11:31 AM CDT [facility] [employer] [facility] ENTRAL LABORATORY Comment:N/A Automated Review Successful 06/30/2016 11:31 AM CDT [facility] LABORATORY-C ENTRAL LABORATORY Comment:Specimen processed s uccessfully by automated conformal pad former device, ThinPrep Imaging System, [employer] ANCILLARY TESTING CLINICAL INFORMATICS PHYSICIAN HPV Ordered, Please see separate report 06/30/2016 11:31 AM CDT [facility] LABORATORY-C [facility] LABORATORY Note The pap test is a screening technique, not a diagnostic procedure. ??It is used primarily to screen for squamous cancers and precursor lesions. ??Published studies have shown that it is subject to both false negative and false positive results. ??The pap test should not be used as the sole means to diagnose or exclude pre-malignant and malignant lesions. Interpreted at [facility] (Central Lab, [facility], [facility], [facility], [facility], [facility], [facility]) 06/30/2016 11:31 AM CDT [facility]- ENTRDE LABORATORY Other (Cervical/Vagina l) 06/20/2016 5:30 PM CDT 06/22/2016 12:26 PM CDT Doctor Unknown PATHOLOGY/CYTOLOGY [facility]-CENTRAL LABORATORY [address] [place] [address], [place] from Last 3 Months or Most Recently Relevant to Health Maintenance Care Teams Forensic Medical Examiner Relationship Specialty Start Date End Date Rupali Tate MD [address] [place] [address] PCP - General Internal Medicine 02/22/10
--- OUTSIDE RECORDS SUMMARY | 2023-09-19 15:01 | XMS_ITS | Encounter Summary ---
Author Organization [facility] Address [address] [place] [address] Care Team Providers Care Pancake Professional Name Role Phone Elsewhere, Pcp Primary Care Provider Unavailabl e Encounter Details Date Type Department Care Team (Late st Contact Info) Description 07/05/2023 Orders Only Division of Pulmonary Medicine in [place], [place] [address] [place] [phone] Anum Jacobson, AMEENA, C.N.P., D.N.P. [address] [place] [phone] Chronic Obstructive Pulmonary Disease (HCC) (Primary Dx) Social History Tobacco Use Types Packs/Day Years Used Date Smoking Tobacco: Former Cigarettes 1 49.1 0 03/14/1974 - 04/24/2023 Smokeless Tobacco: Never Alcohol Use Standard Drinks/Week Comments Yes 0 (1 standard drink = 0.6 oz pur e alcohol) Very very rarely [facility] Utilities Answer Date [...] How often do you attend methodist or methodist serv ices? Never 07/20/2019 Active Member of [...] Answer Date Recorded PHQ-2 Score 2 04/29/2019 [facility] of Occupat ional Health - Occupational [...] your living situation today? I have a [facility] place to live 05/17/2023 Education Answer Date Recorded What is the highest level of school you have completed or the highest degree you have received? Associate degree: academic program 02/12/2019 Sex and Gender Information Value Date Recorded Sex Assigned at Female 05/07/2023 12:13 PM FISH FLIPPER Gender Identity Female 07/20/2019 7:51 PM CDT Sexual Orientation Straight 07/20/2019 7: 51 PM CDT documented as of this encounter Plan of Treatment Upcoming Encounters Date Type Department Care Team (Late st Contact Info) Description 10/17/2023 2:30 PM CDT Comprehensive Visit [facility] in [place], [place] [address] [place] [phone] Netta Valdez, PJustinA.-C. [address] [place] [phone] 11/24/2023 1:30 PM CDT Clinical Communication Virtual Review in [place], [place] [address] [place] [phone] 11/27/2023 9:00 AM CDT Diagnostic Division of Pulmonary Medicine in [place], [place] [address] [place] [phone] Anum Jacobson, AMEENA, C.N.P., D.N.P. [address] [place] [phone] 11/27/2023 10:00 AM CDT Office Visit Division of Pulmonary Medicine in [place], [place] [address] [place] [address] Anum Jacobson, AMEENA, C.N.P., D.N.P. [address] [place] [phone] documented as of this encounter Visit Diagnoses Diagnosis Chronic Obstructive Pulmonary Disease (HCC)- Primary documented in this encounter Additional Health Concerns Assessment Noted Time PHQ-9 Depression Total Score: 6 04/29/19 20 12:40 PM FISH FLIPPER documented as of this encounter Care Teams Pancake Professional Relationship Specialty Start Date End Date Elsewhere, Pcp PCP - General Internal Medicine 04/24/23 documented as of this encounter
--- OUTSIDE RECORDS SUMMARY | 2023-09-19 15:01 | XMS_ITS | Encounter Summary ---
Author Organization [facility] Address [address] [place] [address] Care Team Providers Care Social Services Technician Name Role Phone Elsewhere, Pcp Primary Care Provider Unavailabl e Reason for Referral * Outpatient (Routine) - Closed Specialty Diagnoses / Procedures Referred By Carey escobar Referred To Contact Nicotine Dependence Dino Castillo M.A. [facility] Referral ID Status Reason Start Date Expiration Date Visits Re quested Visits Authorized [id number] Closed 05/12/2023 11/10/2024 1 1 Scheduling Instructions Any date and time for one month follow up please. Thank you! ZING ROOM WORKER Reason for Visit * Reason Comments Nicotine Dependence * Outpatient (Routine) - Closed Specialty Diagnoses / Procedures Referred By Carey escobar Referred To Contact Nicotine Dependence Dino Castillo M.A. [facility] Referral ID Status Reason Start Date Expiration Date Visits Re quested Visits Authorized [id number] Closed 04/24/2023 10/23/2024 1 1 Encounter Details Date Type Department Care Team (Late st Contact Info) Description 05/09/2023 8:30 AM FREEZING ROOM WORKER Virtual Visit Department of Nicotine Dependence, [facility], in [place], [place] [address] [place] [phone] Dino Castillo M.A. Nicotine Dependence Cigarettes With Withdrawal (Primary Dx) Social History Tobacco Use Types Packs/Day Years Used Date Smoking Tobacco: Every Day Cigarettes 1 55 Started: 03/06/1975 Smokeless Tobacco: Never Alcohol Use Standard Drinks/Week Comments Yes 0 (1 standard drink = 0.6 oz pur e alcohol) [facility] Utilities Answer Date Recorded In the past 12 months has e [employer], gas, oil, or water company threatened to [...] How often do you attend scientology or sabianism serv ices? Never 07/20/2019 Active Member of [...] Answer Date Recorded PHQ-2 Score 2 04/29/2019 [facility] of Occupat ional Health - Occupational Stress [...] living situation today? I have a [facility] place to live 05/17/2023 Education Answer Date Recorded What is the highest level of school you have completed or the highest degree you have received? Associate degree: academic program 02/12/2019 Sex and Gender Information Value Date Recorded Sex Assigned at Female 05/07/2023 12:13 PM FREEZING ROOM WORKER Gender Identity Female 07/20/2019 7:51 PM CDT [...] Comprehensive Visit [facility] in [address] [phone] Netta Valdez P.A.-C. [address] [place] [phone] 11/24/2023 1:30 PM CDT Clinical Communication Virtual Review in [address] [phone] 11/27/2023 9:00 AM CDT Diagnostic Division of Pulmonary Medicine in [address] [phone] Anum Jacobson APRN, C.N.P., D.N.P. [address] [place] [phone] 11/27/2023 10:00 AM CDT Office Visit Division of Pulmonary Medicine in [address] [phone] Anum Jacobson APRN, C.N.P., D.N.P. [address] [place] [phone] Scheduled Referrals Name Type Priority Associated Diagnoses Order Schedule Nicotine Dependence office visit (clinic) Outpatient Referral Routine Expected: 06/12/2023 (Approximate), Expires: 08/11/2024 documented as of this encounter Visit Diagnoses Diagnosis Nicotine Dependence Cigarettes With Withdrawal- Primary documented in this encounter Additional Health Concerns Assessment Noted Time PHQ-9 Depression Total Score: 6 04/29/19 20 12:40 PM FREEZING ROOM WORKER documented as of this encounter Care Teams Social Services Technician Relationship Specialty Start Date End Date Elsewhere, Pcp PCP - General Internal Medicine 04/24/23 documented as of this encounter
--- OUTSIDE RECORDS SUMMARY | 2023-09-19 15:01 | XMS_ITS | Encounter Summary ---
Author Organization [facility] Address [address] [place] [address] Care Team Providers Care Shoe Polisher Name Role Phone Elsewhere, Pcp Primary Care Provider Unavailabl e Reason for Referral * Outpatient (Routine) - Closed Specialty Diagnoses / Procedures Referred By Contac t Referred To Contact Diagnoses Abdominal Aortic Aneurysm Without Rupture Unspecified (HCC) Procedures US Aorta US Aorta Iliac Arteries Bilateral with Doppler Dilcia Ingram D.O. [address] [place] [address] [employer] Referral ID Status Reason Start Date Expiration Date Visits Re quested Visits Authorized [id number] Closed 05/26/2023 05/25/2024 1 1 Reason for Visit * Outpatient (Routine) - Closed Specialty Diagnoses / Procedures Referred By Contac t Referred To Contact Diagnoses Abdominal Aortic Aneurysm Without Rupture Unspecified (HCC) Procedures US Aorta US Aorta Iliac Arteries Bilateral with Doppler Dilcia Ingram D.O. [address] [place] [address] [employer] Referral ID Status Reason Start Date Expiration Date Visits Re quested Visits Authorized [id number] Closed 05/26/2023 05/25/2024 1 1 Encounter Details Date Type Department Care Team (Latest Contact Info) Description 07/05/2023 10:07 AM CDT - 07/05/2023 11:59 PM CDT Hospital Encounter Department of Radiology, [facility], in [place], [place] [address] [place] [address] Dilcia Ingram D.O. [address] [place] [address] Abdominal Aortic Aneurysm Without Rupture Unspecified (HCC) Discharge Disposition: Home or Self Care Social History Tobacco Use Types Packs/Day Years Used Date Smoking Tobacco: Former Cigarettes 1 49.1 0 03/14/1974 - 04/24/2023 Smokeless Tobacco: Never Alcohol Use Standard Drinks/Week Comments Yes 0 (1 standard drink = 0.6 oz pur e alcohol) Very very rarely [facility] Utilities Answer Date Recorded In [...] Never 07/20/2019 How often do you attend mu-ism or spiritism serv ices? Never 07/20/2019 Active Member of [...] Answer Date Recorded PHQ-2 Score 2 04/29/2019 [facility] - Occupational Stress Questionnaire Answer Date [...] Sex Assigned at Female 05/07/2023 12:13 PM ASSISTANT KITCHEN MANAGER Gender Identity Female 07/20/2019 7:51 PM CDT Sexual Orientation Straight 07/20/2019 7: 51 PM CDT documented as of this encounter Medications at Time of Discharge Medication Sig Dispensed Refills Start Date End Date acetaminophen (TYLENOL) 500 mg tablet Take 1,000 mg by mouth as needed for pain. albuterol 90 mcg/actuation inhalerIndications:Shor tness Of Breath,Chronic Obstructive Pulmonary Disease (HCC) Inhale 2 puffs every 4 (four) hours as needed for wheezing or shortness of breath. 1 g 11 05/23/2023 amLODIPine (NORVASC) 5 mg tablet Take 1 tablet (5 mg total) by mouth daily. 90 tablet 3 04/25/2023 aspirin, buffered, 325 mg tablet Take 1 tablet (325 mg total) by mouth daily. 360 tablet 04/06/2019 atorvastatin (LIPITOR) 80 mg tabletIndications:Strok e (HCC) Take 1 tablet (80 mg total) by mouth at bedtime. 90 tablet 3 04/26/2023 ibuprofen (ADVIL,MOTRIN) 200 mg tablet Take 400 mg by mouth as needed for pain. nitroglycerin (NITROSTAT) 0.[address] 1 tablet (0.4 mg total) under the tongue every 5 (five) minutes as needed for chest pain. 30 tablet 04/26/2023 umeclidinium-vilanteroL (ANORO ELLIPTA) 62.5-25 mcg/actuation inhalerIndications:Straight Knife Cutter Machine dillon Obstructive Pulmonary Disease (HCC) Inhale 1 puff daily. 60 each 11 07/05/2023 valsartan (DIOVAN) 80 mg tablet Take 1 tablet (80 mg total) by mouth at bedtime. 30 tablet 11 04/25/2023 documented as of this encounter Plan of Treatment Upcoming Encounters Date Type Department Care Team (Late st Contact Info) Description 10/17/2023 2:30 PM CDT Comprehensive Visit [facility] in [place], [place] [address] [place] [address] Netta Valdez P.A.-C. [address] [place] [address] 11/24/2023 1:30 PM CDT Clinical Communication Virtual Review in [place], [place] 200 [place] [address] 11/27/2023 9:00 AM CDT Diagnostic Division of Pulmonary Medicine in [place], [place] [address] [place] [phone] Anum Jacobson APRN, C.N.P., D.N.P. [address] [place] [phone] 11/27/2023 10:00 AM CDT Office Visit Division of Pulmonary Medicine in [place], [place] [address] [place] [phone] Anum Jacobson APRN, C.N.P., D.N.P. [address] [place] [phone] documented as of this encounter Procedures Procedure Name Priority Date/Time Associated Diagnosis Comments US AORTA RAD - Routine (most inpatients and all outpatients) 07/05/2023 11:09 AM CDT Abdominal Aortic Aneurysm Without Rupture Unspecified (HCC) documented in this encounter Results * US Aorta (07/05/2023 11:09 AM [...] common iliac arteries. Dilcia HUNTER US PROCEDURES documented in this encounter Visit Diagnoses Diagnosis Abdominal Aortic Aneurysm Without Rupture Unspecified (HCC) documented in this encounter Additional Health Concerns Assessment Noted Time PHQ-9 Depression Total Score: 6 04/29/19 20 12:40 PM ASSISTANT KITCHEN MANAGER documented as of this encounter Care Teams Shoe Polisher Relationship Specialty Start Date End Date Elsewhere, Pcp PCP - General Internal Medicine 04/24/23 documented as of this encounter
--- OUTSIDE RECORDS SUMMARY | 2023-09-19 15:01 | XMS_ITS | Encounter Summary ---
Author Organization [facility] Address [address] [place] [address] Care Team Providers Care Drilling Machine Runner Name Role Phone Elsewhere, Pcp Primary Care Provider Unavailabl e Encounter Details Date Type Department Care Team (Latest Contact Info) Description 07/05/2023 9:30 AM CDT - 07/05/2023 10:06 AM CDT Hospital Encounter Department of Laboratory Medicine and Pathology, [facility], in [place], [place] [address] [place] [address] Dilcia Ingram D.O. [address] [place] [address] Abdominal Aortic Aneurysm Without Rupture Unspecified (HCC) Discharge Disposition: Home or Self Care Social History Tobacco Use Types Packs/Day Years Used Date Smoking Tobacco: Former Cigarettes 1 49.1 0 03/14/1974 - 04/24/2023 Smokeless Tobacco: Never Alcohol Use Standard Drinks/Week Comments Yes 0 (1 standard drink = 0.6 oz pur e alcohol) Very very rarely [facility] Utilities Answer Date Recorded In the [...] Never 07/20/2019 How often do you attend latter-day or yazdanism serv ices? Never 07/20/2019 Active Member of [...] Answer Date Recorded PHQ-2 Score 2 04/29/2019 [facility] - Occupational Stress Questionnaire [...] your living situation today? I have a [facility] place to live 05/17/2023 Education Answer Date Recorded What is the highest level of school you have completed or the highest degree you have received? Associate degree: academic program 02/12/2019 Sex and Gender Information Value Date Recorded Sex Assigned at Female 05/07/2023 12:13 PM BEHAVIORAL THERAPY COORDINATOR Gender Identity Female 07/20/2019 7:51 PM CDT [...] needed for chest pain. 30 tablet 04/26/2023 valsartan (DIOVAN) 80 mg tablet Take 1 tablet (80 mg total) by mouth at bedtime. 30 tablet 11 04/25/2023 documented as of this encounter Plan of Treatment Upcoming Encounters Date Type Department Care Team (Late st Contact Info) Description 10/17/2023 2:30 PM CDT Comprehensive Visit [facility] in [place], [place] [address] [place] [phone] Netta Valdez P.A.-C. [address] [place] [phone] 11/24/2023 1:30 PM CDT Clinical Communication Virtual Review in [place], [place] [address] [place] [address] 11/27/2023 9:00 AM CDT Diagnostic Division of Pulmonary Medicine in [address] [phone] Anum Jacobson APRN, C.N.P., D.N.P. [address] [place] [phone] 11/27/2023 10:00 AM CDT Office Visit Division of Pulmonary Medicine in [address] [phone] Anum Jacobson APRN, C.N.P., D.N.P. [address] [place] [phone] documented as of this encounter Procedures Procedure Name Priority Date/Time Associated Diagnosis Comments LIPID PANEL, S Routine 07/05/2023 9:54 AM CDT Abdominal Aortic Aneurysm Without Rupture Unspecified (HCC) documented in this encounter Results * Lipid Panel (07/05/2023 9:54 AM CDT) [...] CDT Dilcia Ingram D.O. LAB BLOOD ADD-ON [facility] [address] [place] [address], [facility] [address] [place] [address] documented in this encounter Visit Diagnoses Diagnosis Abdominal Aortic Aneurysm Without Rupture Unspecified (HCC) documented in this encounter Additional Health Concerns Assessment Noted Time PHQ-9 Depression Total Score: 6 04/29/19 20 12:40 PM BEHAVIORAL THERAPY COORDINATOR documented as of this encounter Care Teams Drilling Machine Runner Relationship Specialty Start Date End Date Elsewhere, Pcp PCP - General Internal Medicine 04/24/23 documented as of this encounter
== END 2023-09-19 14:59 | disposition home or self-care (01) ==
LOC: MAMMO 14:58
PROVIDERS: PCP Internal Medicine; Visit Provider Internal Medicine
DX: Z12.31 Encounter for screening mammogram for malignant neoplasm of breast (principal)
CPT/HCPCS: 77063; 77067

== ENCOUNTER 2023-10-24 10:01 | Outpatient (CLI) | payer OTHER, SELFPAY ==
--- OUTSIDE RECORDS SUMMARY | 2023-10-24 10:03 | XMS_ITS | Encounter Summary ---
Author Organization [facility] Address [address] [place] [address] Care Team Providers Care Trailhead Construction Worker Name Role Phone Elsewhere, Pcp Primary Care Provider Unavailabl e Encounter Details Date Type Department Care Team (Late st Contact Info) Description 09/27/2023 Orders Only Division of Pulmonary Medicine in [place], [place] [address] [place] [phone] Anum Jacobson, AMEENA, C.N.P., D.N.P. [address] [place] [phone] Chronic Obstructive Pulmonary Disease Exacerbation (HCC) (Primary Dx) Social History Tobacco Use Types Packs/Day Years Used Date Smoking Tobacco: Former Cigarettes 1 49.1 0 03/14/1974 - 04/24/2023 Smokeless Tobacco: Never Alcohol Use Standard Drinks/Week Comments Yes 0 (1 standard drink = 0.6 oz pur e alcohol) Very very rarely [facility] Utilities Answer Date Recorded In the [...] How often do you attend buddhist or congregation serv ices? Never 07/20/2019 Active Member of [...] Answer Date Recorded PHQ-2 Score 2 04/29/2019 [facility] - Occupational [...] your living situation today? I have a [facility] place to live 05/17/2023 Education Answer Date Recorded What is the highest level of school you have completed or the highest degree you have received? Associate degree: academic program 02/12/2019 Sex and Gender Information Value Date Recorded Sex Assigned at Female 05/07/2023 12:13 PM DOCUMENT PREPARER MICROFILMING Gender Identity Female 07/20/2019 7:51 PM CDT Sexual Orientation Straight 07/20/2019 7: 51 PM CDT documented as of this encounter Plan of Treatment Upcoming Encounters Date Type Department Care Team (Late st Contact Info) Description 10/24/2023 1:30 PM CDT Telemedicine [facility] in [place], [place] [address] [place] [phone] Edward Valladares, AMEENA, C.N.P., M.S.N. [address] [place] [phone] 11/24/2023 1:30 PM CDT Clinical Communication Virtual Review in [place], [place] 200 [place] [address] 11/27/2023 8:00 AM CDT Diagnostic Division of Pulmonary Medicine in [place], [place] [address] [place] [phone] Anum Jacobson, AMEENA, C.N.P., D.N.P. [address] [place] [phone] 11/27/2023 9:00 AM CDT Diagnostic Division of Pulmonary Medicine in [place], [place] [address] [place] [address] Anum Jacobson APRN C.N.P., D.N.P. [address] [place] [phone] 11/27/2023 10:00 AM CDT Office Visit Division of Pulmonary Medicine in [place], [place] [address] [place] [address] Anum Jacobson APRN, C.N.P., D.N.P. [address] [place] [phone] Scheduled Orders Name Type Priority Associated Diagnoses Orde r Schedule PUL Exhaled Nitric Oxide PFT Routine Chronic Obstructive Pulmonary Disease Exacerbation (HCC) Expected: 11/27/2023, Expires: 12/27/2024 documented as of this encounter Visit Diagnoses Diagnosis Chronic Obstructive Pulmonary Disease Exacerbation (HCC)- Primary documented in this encounter Additional Health Concerns Assessment Noted Time PHQ-9 Depression Total Score: 6 04/29/19 20 12:40 PM DOCUMENT PREPARER MICROFILMING documented as of this encounter Care Teams Trailhead Construction Worker Relationship Specialty Start Date End Date Elsewhere, Pcp PCP - General Internal Medicine 04/24/23 documented as of this encounter
--- OUTSIDE RECORDS SUMMARY | 2023-10-24 10:03 | XMS_ITS | Clinical Summary ---
Author Organization [facility] Address [address] [place] [address] Care Team Providers Care Typing Element Machine Operator Name Role Phone Elsewhere, Pcp Primary Care Provider Unavailabl e Source Comments Patient records contain information from all sites at [facility]. For routine questions regarding patient records, call [phone] during business hours, M-F 8:00 AM - 5:00 PM Central Time. Record requests for emergency care only can be directed to [phone] at any time.[facility] Allergies Active Allergy Reactions Criticality Noted Date [...] 11 04/25/2023 Active atorvastatin (LIPITOR) 80 mg tabletIndications:S troke (HCC) Take 1 tablet (80 mg total) by mouth at bedtime. 90 tablet 3 04/26/2023 Active nitroglycerin (NITROSTAT) 0.[address] 1 tablet (0.4 mg total) under the tongue every 5 (five) minutes as needed for chest pain. 30 tablet 04/26/2023 Active albuterol 90 mcg/actuation inhalerIndications: Shortness Of Breath,Chronic Obstructive Pulmonary Disease (HCC) Inhale 2 puffs every 4 (four) hours as needed for wheezing or shortness of breath. 1 g 11 05/23/2023 Active umeclidinium-vilant Abram (ANORO ELLIPTA) 62.5-25 mcg/actuation inhalerIndications: Chronic Obstructive Pulmonary Disease (HCC) Inhale 1 puff daily. 60 each 11 07/05/2023 Active predniSONE (Deltasone) 20 mg tabletIndications:C hronic Obstructive Pulmonary Disease Exacerbation (HCC) Take 2 tablets (40 mg total) by mouth daily. 10 tablet 09/27/2023 Active ipratropium-albuter oL (DuoNeb) 0.5-2.5 mg/3 mL nebulizer solutionIndications :Chronic Obstructive Pulmonary Disease (HCC) Inhale 3 mL by nebulization 4 (four) times a day as needed for wheezing or shortness of breath. 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 Chronic Obstructive Pulmonary Disease (HCC) (Primary Dx) 09/27/2023 Documentation Division of Pulmonary Medicine in [place], [place] [address] [place] [address] Anum Jacobson APRN, C.N.PJustin, D.N.P. 09/27/2023 Orders Only Division of Pulmonary Medicine in [place], [place] [address] [place] [address] Anum Jacobson APRN C.N.P., D.N.P. Chronic Obstructive Pulmonary Disease Exacerbation (HCC) (Primary Dx) from Last 3 Months [...] 1 Tyrell Keegan ADD Son 2 Raymundo Allison Relation Name Status Comments Brother Mckinley Corrigancaroline Father Francisco Carrillo Jr Maternal Grandfather Gallo Pettywin Mother Tiffanie Bravo Paternal Grandfather Francisco alvarado [...] oz pur e alcohol) Very very rarely [facility] Utilities Answer Date Recorded In the past 12 months has [place], gas, oil, or water [place] threatened to shut off services in your [...] Never 07/20/2019 How often do you attend congregation or buddhist serv ices? Never 07/20/2019 Active [...] Answer Date Recorded PHQ-2 Score 2 04/29/2019 [employer] [facility] - Occupational Stress [...] your living situation today? I have a [facility] place to live 05/17/2023 Education Answer Date Recorded What is the highest level of school you have completed or the highest degree you have received? Associate degree: academic program 02/12/2019 Sex and Gender Information Value Date Recorded Sex Assigned at Female 05/07/2023 12:13 PM TOOL MACHINE SET UP OPERATOR Gender Identity Female 07/20/2019 7:51 PM CDT Sexual Orientation Straight 07/20/2019 7: 51 PM CDT Last Filed Vital Signs Vital Sign Reading Time Taken Comments Blood Pressure 142/70 07/05/2023 12:38 PM CDT Pulse 85 07/05/2023 12:38 PM CDT Temperature 36.6 ??C (97.9 ??F) 04/26/2023 12:[address] Respiratory Rate 16 04/26/2023 12:20 PM TOOL MACHINE SET UP OPERATOR Oxygen Saturation 93% 05/23/2023 1:21 PM CDT [...] CDT Telemedicine [facility] in [place], [place] [address] [place] [phone] Edward Valladares APRN, C.N.P., M.S.N. [address] [place] [phone] 11/24/2023 1:30 PM CDT Clinical Communication Virtual Review in [place], [place] 200 [place] [address] 11/27/2023 8:00 AM CDT Diagnostic Division of Pulmonary Medicine in [place], [place] [address] [place] [phone] Anum Jacobson APRN, C.N.P., D.N.P. [address] [place] [phone] 11/27/2023 9:00 AM CDT Diagnostic Division of Pulmonary Medicine in [place], [place] [address] [place] [phone] Anum Jacobson APRN, C.N.P., D.N.P. [address] [place] [phone] 11/27/2023 10:00 AM CDT Office Visit Division of Pulmonary Medicine in [place], [place] [address] [place] [phone] Anum Jacobson APRN, C.N.P., D.N.P. [address] [place] [phone] Health Maintenance Due Date Last Done Comments [...] Re-check 10/05/2023 07/05/2023 Influenza Vaccine (#1) 2023 , 01/07/2022, 12/12/2020, Additional history exists Creatinine Level [...] METABOLIC PANEL, S/P Routine 04/26/2023 10:43 AM TOOL MACHINE SET UP OPERATOR from Last 3 Months or Most Recently Relevant to Health Maintenance Results * Lipid Panel (07/05/2023 9:54 AM [...] CDT Dilcia Ingram D.O. LAB BLOOD ADD-ON [facility] [address] [place] [address], [place] DTL [facility] [address] [place] [address] * CT Chest without IV Contrast (05/22/2023 [...] Severe coronary artery calcification. Perla Lorenz M.D. IMG CT PROCEDURES * Basic Metabolic Panel (04/26/2023 10:43 AM TOOL MACHINE SET UP OPERATOR) Potassium, S 4.9 3.6 - 5.2 mmol/L 04/26/2023 12:05 PM TOOL MACHINE SET UP OPERATOR DTL Sodium, S 137 135 - 145 mmol/L 04/26/2023 12:05 PM TOOL MACHINE SET UP OPERATOR DTL Chloride, S 99 98 - 107 mmol/L 04/26/2023 12:05 PM TOOL MACHINE SET UP OPERATOR DTL Bicarbonate, S 28 22 - 29 mmol/L 04/26/2023 12:05 PM TOOL MACHINE SET UP OPERATOR DTL Anion Gap 10 7 - 15 04/26/2023 12:05 PM TOOL MACHINE SET UP OPERATOR DTL BUN (Blood Urea Nitrogen), S 19 6 - 21 mg/dL 04/26/2023 12:05 PM TOOL MACHINE SET UP OPERATOR DTL Creatinine 0.63 0.59 - 1.04 mg/dL 04/26/2023 12:05 PM TOOL MACHINE SET UP OPERATOR DTL Estimated GFR (eGFR) >90 >=60 mL/min/BSA 04/26/2023 12:05 PM TOOL MACHINE SET UP OPERATOR DTL Comment: Estimated GFR calculated using the 2020 CKD_EPI creatinine equation. Calcium, Total, S 9.3 8.8 - 10.2 mg/dL 04/26/2023 12:05 PM TOOL MACHINE SET UP OPERATOR DTL Glucose, S 95 70 - 140 mg/dL 04/26/2023 12:05 PM TOOL MACHINE SET UP OPERATOR DTL Blood (Blood, Venous) 04/26/2023 10:43 AM TOOL MACHINE SET UP OPERATOR 04/26/2023 11:31 AM TOOL MACHINE SET UP OPERATOR Krupa Bates M.D. LAB BLOOD ADD-O N [facility] [address] [place] [address], [facility] DTL [facility] [address] [place] [address] from Last 3 Months or Most Recently Relevant to Health Maintenance Advance Directives For more information, please contact: [phone] * Full Code (Latest Code Status on File) Date Activated Date Inactivated Comments 04/24/2023 5:03 AM 04/26/2023 3:35 PM Question Answer Comments Full Code: Discussed * Full Code Date Activated Date Inactivated Comments 01/04/2019 11:20 PM 01/05/2019 7:41 PM Question Answer Comments Full Code: Discussed Care Teams Typing Element Machine Operator Relationship Specialty Start Date End Date Elsewhere, Pcp PCP - General Internal Medicine 04/24/23
--- OUTSIDE RECORDS SUMMARY | 2023-10-24 10:03 | XMS_ITS | Encounter Summary ---
Author Organization [facility] Address [address] [place] [address] Care Team Providers Care Protection Officer Name Role Phone Elsewhere, Pcp Primary Care Provider Unavailabl e Encounter Details Date Type Department Care Team (Late st Contact Info) Description 10/10/2023 Orders Only Division of Pulmonary Medicine in [place], [place] [address] [place] [phone] Anum Jacobson, AMEENA, C.N.P., D.N.P. [address] [place] [phone] Chronic Obstructive Pulmonary Disease (HCC) (Primary Dx) Social History Tobacco Use Types Packs/Day Years Used Date Smoking Tobacco: Former Cigarettes 1 49.1 0 03/14/1974 - 04/24/2023 Smokeless Tobacco: Never Alcohol Use Standard Drinks/Week Comments Yes 0 (1 standard drink = 0.6 oz pur e alcohol) Very very rarely [facility] Utilities Answer Date Recorded In the past [...] Never 07/20/2019 How often do you attend hinduism or orthodox serv ices? Never 07/20/2019 Active [...] Answer Date Recorded PHQ-2 Score 2 04/29/2019 [facility] - [...] your living situation today? I have a [facility] place to live 05/17/2023 Education Answer Date Recorded What is the highest level of school you have completed or the highest degree you have received? Associate degree: academic program 02/12/2019 Sex and Gender Information Value Date Recorded Sex Assigned at Female 05/07/2023 12:13 PM MUTUAL FUND ANALYST Gender Identity Female 07/20/2019 7:51 PM CDT Sexual Orientation Straight 07/20/2019 7: 51 PM CDT documented as of this encounter Plan of Treatment Upcoming Encounters Date Type Department Care Team (Late st Contact Info) Description 10/24/2023 1:30 PM CDT Telemedicine [facility] in [place], [place] [address] [place] [phone] Edward Valladares, AMEENA, C.N.P., M.S.N. [address] [place] [phone] 11/24/2023 1:30 PM CDT Clinical Communication Virtual Review in [place], [place] 200 [place] [address] 11/27/2023 8:00 AM CDT Diagnostic Division of Pulmonary Medicine in [place], [place] [address] [place] [phone] Anum Jacobson, AMEENA, C.N.P., D.N.P. [address] [place] [phone] 11/27/2023 9:00 AM CDT Diagnostic Division of Pulmonary Medicine in [place], [place] [address] [place] [phone] Anum Jacobson APRN, C.N.P., D.N.P. [address] [place] [phone] 11/27/2023 10:00 AM CDT Office Visit Division of Pulmonary Medicine in [place], [place] [address] [place] [address] Anum Jacobson APRN C.N.P., D.N.P. [address] [place] [phone] documented as of this encounter Visit Diagnoses Diagnosis Chronic Obstructive Pulmonary Disease (HCC)- Primary documented in this encounter Additional Health Concerns Assessment Noted Time PHQ-9 Depression Total Score: 6 04/29/19 20 12:40 PM MUTUAL FUND ANALYST documented as of this encounter Care Teams Protection Officer Relationship Specialty Start Date End Date Elsewhere, Pcp PCP - General Internal Medicine 04/24/23 documented as of this encounter
--- OUTSIDE RECORDS SUMMARY | 2023-10-24 10:03 | XMS_ITS ---
Author Organization [facility] Address [address] [place] [address] Care Team Providers Care Telehealth Nurse Educator Name Role Phone Unavailable Unavailable Unavailable Surgery Details Not on file Complications Check Surgery Details section. Procedure Estimated Blood Loss Check Surgery Details section. Procedure Findings Check Surgery Details section. Procedure Specimens Taken Check Surgery Details section.
--- OUTSIDE RECORDS SUMMARY | 2023-10-24 10:03 | XMS_ITS | Encounter Summary ---
Author Organization [facility] Address [address] [place] [phone] Care Team Providers Care Business Machine Mechanic Name Role Phone Elsewhere, Pcp Primary Care Provider Unavailabl e Encounter Details Date Type Department Care Team (Late st Contact Info) Description 06/01/2023 Clinical Communication Division of Pulmonary Medicine in [place], [place] [address] [place] [address] Trav Brice M.D. [address] [place] [phone] Social History Tobacco Use Types Packs/Day Years Used Date Smoking Tobacco: Former Cigarettes 1 49.1 0 03/14/1974 - 04/24/2023 Smokeless Tobacco: Never Alcohol Use Standard Drinks/Week Comments Yes 0 (1 standard drink = 0.6 oz pur e alcohol) Very very rarely [facility] Utilities Answer Date Recorded In the [...] How often do you attend bahai or church serv ices? Never 07/20/2019 Active Member of [...] at Female 05/07/2023 12:13 PM DIRECTOR OF DANCE Gender Identity Female 07/20/2019 7:51 PM CDT Sexual Orientation Straight 07/20/2019 7: 51 PM CDT documented as of this encounter Miscellaneous Notes * Telephone Encounter - Gabriel Bates - 09/11/2023 3:28 PM CDT This was signed and faxed on 09/11/23 Sent to Luis fax: [phone] documented in this encounter Plan of Treatment Upcoming Encounters Date Type Department Care Team (Late st Contact Info) Description 10/24/2023 1:30 PM CDT Telemedicine Center for Sleep Medicine in [place], [place] [address] [place] [phone] Edward Valladares, AMEENA, C.N.P., M.S.N. [address] [place] [phone] 11/24/2023 1:30 PM CDT Clinical Communication Virtual Review in [place], [place] [address] [place] [address] 11/27/2023 8:00 AM CDT Diagnostic Division of Pulmonary Medicine in [place], [place] [address] [place] [phone] Anum Jacobson APRN C.N.P., D.N.P. [address] [place] [phone] 11/27/2023 9:00 AM CDT Diagnostic Division of Pulmonary Medicine in [place], [place] [address] [place] [phone] Anum Jacobson APRN C.N.P., D.N.P. [address] [place] [phone] 11/27/2023 10:00 AM CDT Office Visit Division of Pulmonary Medicine in [place], [place] [address] [place] [phone] Anum Jacobson APRN C.N.P., D.N.P. [address] [place] [phone] documented as of this encounter Visit Diagnoses Diagnosis Chronic Obstructive Pulmonary Disease (HCC)- Primary documented in this encounter Additional Health Concerns Assessment Noted Time PHQ-9 Depression Total Score: 6 04/29/19 20 12:40 PM DIRECTOR OF DANCE documented as of this encounter Care Teams Business Machine Mechanic Relationship Specialty Start Date End Date Elsewhere, Pcp PCP - General Internal Medicine 04/24/23 documented as of this encounter
--- OUTSIDE RECORDS SUMMARY | 2023-10-24 10:03 | XMS_ITS | Encounter Summary ---
Author Organization [facility] Address [address] [place] [phone] Care Team Providers Care Dyer Assistant Name Role Phone Elsewhere, Pcp Primary Care Provider Unavailabl e Encounter Details Date Type Department Care Team (Late st Contact Info) Description 09/27/2023 Documentation Division of Pulmonary Medicine in [place], [place] [address] [place] [phone] Anum Jacobson, AMEENA, C.N.P., D.N.P. [address] [place] [phone] Social History Tobacco Use Types Packs/Day Years Used Date Smoking Tobacco: Former Cigarettes 1 49.1 0 03/14/1974 - 04/24/2023 Smokeless Tobacco: Never Alcohol Use Standard Drinks/Week Comments Yes 0 (1 standard drink = 0.6 oz pur e alcohol) Very very rarely [facility] Utilities Answer Date Recorded In the [...] Never 07/20/2019 How often do you attend jehovah's witness or sikhism serv ices? Never 07/20/2019 Active Member of [...] Answer Date Recorded PHQ-2 Score 2 04/29/2019 [facility] - Occupational [...] your living situation today? I have a [facility] to live 05/17/2023 Education Answer Date Recorded What is the highest level of school you have completed or the highest degree you have received? Associate degree: academic program 02/12/2019 Sex and Gender Information Value Date Recorded Sex Assigned at Female 05/07/2023 12:13 PM WOODS MANAGER Gender Identity Female 07/20/2019 7:51 PM CDT Sexual Orientation Straight 07/20/2019 7: 51 PM CDT documented as of this encounter Progress Notes * Anum Jacobson, AMEENA, C.N.P., D.N.P. - 09/27/2023 12:29 PM CDT Chart Update I received a portal message from Mrs. Allison stating she has been experiencing an increase in shortness of breathing and tightness in her chest with activity for the last couple of weeks. She denies a productive cough, fever, chills, and night sweats. Her oxygen saturations have remained above 90%. She had left over prednisone available at home that she took for 5 to 7 days. She reports she was taking 5 mg daily. She noted some improvement in her symptoms. She has been using Anoro Ellipta daily as well as her albuterol. Since her symptoms started, she has been using her albuterol more frequently, about 2 to 3 times a day. Prior to this, she was using her albuterol inhaler 1 to 2 times a week. At this time she does not have any complaints of infectious like symptoms, I think it would be reasonable to hold off on antibiotic therapy, however for the chest tightness and shortness of breath, I think it would be reasonable for her to take prednisone 40 mg for 5 days. When reviewing her previous PFT, she did have a large improvement in FVC following bronchodilator administration. I have added an exhaled nitric oxide test to be completed prior to our follow up in November. I have askedthat the patient call or portal message me following the use of the prednisone providing me with anupdate on her symptoms. Patient is agreeable with the plan outlined above. Anum Jacobson APRN, C.NTraci., Suzanne.N.P. documented in this encounter Plan of Treatment Upcoming Encounters Date Type Department Care Team (Late st Contact Info) Description 10/24/2023 1:30 PM CDT Telemedicine Center for Sleep Medicine in [address] [phone] Edward Valladares APRN, C.N.P., M.S.N. [address] [place] [phone] 11/24/2023 1:30 PM CDT Clinical Communication Virtual Review in [address] [phone] 11/27/2023 8:00 AM CDT Diagnostic Division of Pulmonary Medicine in [address] [phone] Anum Jacobson APRN, C.N.P., D.N.P. [address] [place] [phone] 11/27/2023 9:00 AM CDT Diagnostic Division of Pulmonary Medicine in [address] [phone] Anum Jacobson APRN, C.N.P., D.N.P. [address] [place] [phone] 11/27/2023 10:00 AM CDT Office Visit Division of Pulmonary Medicine in [place], [place] [address] [place] [phone] Anum Jacobson, Martha LINDQUISTNTraci., D.N.P. [address] [place] [phone] documented as of this encounter Visit Diagnoses Not on filedocumented in this encounter Additional Health Concerns Assessment Noted Time PHQ-9 Depression Total Score: 6 04/29/19 20 12:40 PM WOODS MANAGER documented as of this encounter Care Teams Dyer Assistant Relationship Specialty Start Date End Date Elsewhere, Pcp PCP - General Internal Medicine 04/24/23 documented as of this encounter
--- OUTSIDE RECORDS SUMMARY | 2023-10-24 10:03 | XMS_ITS | Referral Summary ---
Author Organization [facility] Address [address] [place] [address] Care Team Providers Care Search Marketing Coordinator Name Role Phone Elsewhere, Pcp Primary Care Provider Unavailabl e Source Comments Patient records contain information from all sites at [facility]. For routine questions regarding patient records, call [phone] during business hours, M-F 8:00 AM - 5:00 PM Central Time. Record requests for emergency care only can be directed to [phone] at any time.[facility] Encounters Date Type Department Care Team Description 10/10/2023 Orders Only Division of Pulmonary Medicine in [place], [place] [address] [place] [phone] Anum Jacobson APRN, C.N.P., D.N.P. Chronic Obstructive Pulmonary Disease (HCC) (Primary Dx) 09/27/2023 Documentation Division of Pulmonary Medicine in [place], [place] [address] [place] [phone] Anum Jacobson APRN, C.N.P., D.N.P. 09/27/2023 Orders Only Division of Pulmonary Medicine in [place], [place] [address] [place] [phone] Anum Jacobson APRN C.N.P., D.N.P. Chronic Obstructive Pulmonary Disease Exacerbation (HCC) (Primary Dx) from Last 3 Months Allergies Active Allergy [...] Smoking Cessation 04/26/2023 Atherosclerotic Heart Diseas e Jena Coronary Artery With Other Forms Angina Pectoris [...] oz pur e alcohol) Very very rarely [facility] Utilities Answer Date Recorded In the past 12 months has e [employer], gas, oil, or water [employer] threatened to shut off services in your [...] Never 07/20/2019 How often do you attend moravian or scientology serv ices? Never 07/20/2019 Active Member of [...] Answer Date Recorded PHQ-2 Score 2 04/29/2019 [facility] Occupat ional Health - Occupational Stress [...] Sex Assigned at Female 05/07/2023 12:13 PM DRY MILL OPERATOR Gender Identity Female 07/20/2019 7:51 PM CDT Sexual Orientation Straight 07/20/2019 7: 51 PM CDT Last Filed Vital Signs Vital Sign Reading Time Taken Comments Blood Pressure 142/70 07/05/2023 12:38 PM CDT Pulse 85 07/05/2023 12:38 PM CDT Temperature 36.6 ??C (97.9 ??F) 04/26/2023 12:[address] Respiratory Rate 16 04/26/2023 12:20 PM DRY MILL OPERATOR Oxygen Saturation 93% 05/23/2023 1:21 PM [...] CDT Telemedicine Center for Sleep Medicine in [place], [place] [address] [place] [phone] Edward Valladares, AMEENA, C.N.P., M.S.N. [address] [place] [phone] 11/24/2023 1:30 PM CDT Clinical Communication Virtual Review in [place], [place] [address] [place] [phone] 11/27/2023 8:00 AM CDT Diagnostic Division of Pulmonary Medicine in [place], [place] [address] [place] [address] Anum Jacobson APRN, C.N.P., D.N.P. [address] [place] [phone] 11/27/2023 9:00 AM CDT Diagnostic Division of Pulmonary Medicine in [place], [place] [address] [place] [phone] Anum Jacobson APRN, C.N.P., D.N.P. [address] [place] [phone] 11/27/2023 10:00 AM CDT Office Visit Division of Pulmonary Medicine in [place], [place] [address] [place] [address] Anum Jacobson APRN, C.N.P., D.N.P. [address] [place] [phone] Procedures Procedure Name Priority Date/Time Associated Diagnosis Comments LIPID PANEL, S Routine 07/05/2023 9:54 AM CDT Abdominal Aortic Aneurysm Without Rupture Unspecified (HCC) CT CHEST WITHOUT IV CONTRAST RAD - Routine (most inpatients and all outpatients) 05/22/2023 3:02 PM CDT Shortness Of Breath BASIC METABOLIC PANEL, S/P Routine 04/26/2023 10:43 AM DRY MILL OPERATOR from Last 3 Months or Most Recently Relevant to Health Maintenance Results * Lipid Panel (07/05/2023 9:54 AM CDT) Pathologist [facility] Triglycerides 68 mg/dL 07/05/2023 10:52 AM CDT [...] CDT Dilcia Ingram D.O. LAB BLOOD ADD-ON [facility] [address] [place] [address], [facility] [address] [place] [address] * CT Chest without IV Contrast (05/22/2023 [...] Severe coronary artery calcification. Perla Lorenz M.D. [facility] CT PROCEDURES * Basic Metabolic Panel (04/26/2023 10:43 AM DRY MILL OPERATOR) Potassium, S 4.9 3.6 - 5.2 mmol/L 04/26/2023 12:05 PM DRY MILL OPERATOR DTL Sodium, S 137 135 - 145 mmol/L 04/26/2023 12:05 PM DRY MILL OPERATOR DTL Chloride, S 99 98 - 107 mmol/L 04/26/2023 12:05 PM DRY MILL OPERATOR DTL Bicarbonate, S 28 22 - 29 mmol/L 04/26/2023 12:05 PM DRY MILL OPERATOR DTL Anion Gap 10 7 - 15 04/26/2023 12:05 PM DRY MILL OPERATOR DTL BUN (Blood Urea Nitrogen), S 19 6 - 21 mg/dL 04/26/2023 12:05 PM DRY MILL OPERATOR DTL Creatinine 0.63 0.59 - 1.04 mg/dL 04/26/2023 12:05 PM DRY MILL OPERATOR DTL Estimated GFR (eGFR) >90 >=60 mL/min/BSA 04/26/2023 12:05 PM DRY MILL OPERATOR DTL Comment: Estimated GFR calculated using the 2020 CKD_EPI creatinine equation. Calcium, Total, S 9.3 8.8 - 10.2 mg/dL 04/26/2023 12:05 PM DRY MILL OPERATOR DTL Glucose, S 95 70 - 140 mg/dL 04/26/2023 12:05 PM DRY MILL OPERATOR DTL Blood (Blood, Venous) 04/26/2023 10:43 AM DRY MILL OPERATOR 04/26/2023 11:31 AM DRY MILL OPERATOR Krupa Bates M.D. LAB BLOOD ADD-O N [facility] [address] [place] [address], [facility] [address] [place] [address] from Last 3 Months or Most Recently Relevant to Health Maintenance Advance Directives For more information, please contact: [phone] * Full Code (Latest Code Status on File) Date Activated Date Inactivated Comments 04/24/2023 5:03 AM 04/26/2023 3:35 PM Question Answer Comments Full Code: Discussed * Full Code Date Activated Date Inactivated Comments 01/04/2019 11:20 PM 01/05/2019 7:41 PM Question Answer Comments Full Code: Discussed Care Teams Search Marketing Coordinator Relationship Specialty Start Date End Date Elsewhere, Pcp PCP - General Internal Medicine 04/24/23
--- OUTSIDE RECORDS SUMMARY | 2023-10-24 10:04 | XMS_ITS | Clinical Summary ---
Author Organization [facility] Address [place], [place] [address] Care Team Providers Care Ordinary Seaman Name Role Phone Rupali Tate MD Primary Care Provider [phone] Allergies Active Allergy Reactions Criticality Noted Date [...] unspecified vessel or lesion type, unspecified whether [place] or transplanted heart Take 1 tablet by mouth once daily. 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 Case: [id number] ? Authorizing Provider: ??Unknown, Doctor ?Collected: ? 06/20/2016 1730 ? First Screen: ?Perlita Mann ?Received: ?06/22/2016 1226 ? Specimen: ?CARTRIDGE ASSEMBLING MACHINE ADJUSTER ThinPrep Vial Screening, Cervical/Vaginal ? 06/30/2016 11:31 AM CDT [facility] INTERPRETATION/ RESULT NEGATIVE FOR INTRAEPITHELIAL LESION OR MALIGNANCY (NIL) (none) 06/30/2016 11:31 AM CDT [facility] ENTRAL LAB[facility] IMEN ADEQUACY Satisfactory for evaluation Endocervical component present 06/30/2016 11:31 AM CDT [facility] ENTRAL LABORATORY HPV REQUEST HPV and PAP 06/30/2016 11:31 AM CDT [facility] ENTRAL LABORATORY Last Pap Date 02/20/2012 06/30/2016 11:31 AM CDT [facility]-C ENTRAL LABORATORY Last Pap Result NIL 7 11:31 AM CDT [facility] EN[facility]AL LAB[facility]ATORY Menstrual Status 06/30/2016 11:31 AM CDT [facility] ENTRAL LAB[facility] Comment:N/A Automated Review Successful 06/30/2016 11:31 AM CDT [facility] ENTRAL LABORATORY Comment:Specimen processed s uccessfully by automated cable television technician device, ThinPrep Imaging System, [employer] ANCILLARY TESTING CARTRIDGE ASSEMBLING MACHINE ADJUSTER HPV Ordered, Please see separate report 06/30/2016 11:31 AM CDT [facility] Note The pap test is a screening technique, not a diagnostic procedure. ??It is used primarily to screen for squamous cancers and precursor lesions. ??Published studies have shown that it is subject to both false negative and false positive results. ??The pap test should not be used as the sole means to diagnose or exclude pre-malignant and malignant lesions. Interpreted at [facility] ([facility], [facility], [facility], [facility], [facility], [facility], [facility]) 06/30/2016 11:31 AM CDT [facility] Other (Cervical/Vagina l) 06/20/2016 5:30 PM CDT 06/22/2016 12:26 PM CDT Doctor Unknown PATHOLOGY/CYTOLOGY [facility] [address] [place] [address], [place] from Last 3 Months or Most Recently Relevant to Health Maintenance Care Teams Ordinary Seaman Relationship Specialty Start Date End Date Rupali Tate MD [address] [place] [address] PCP - General Internal Medicine 02/22/10
== END 2023-10-24 10:02 | disposition home or self-care (01) ==
PROVIDERS: PCP Internal Medicine; Visit Provider Family Medicine
DX: R06.02 Shortness of breath (principal); R60.9 Edema, unspecified; R25.2 Cramp and spasm
CPT/HCPCS: 80048; 83735; 83880

== ENCOUNTER 2024-01-30 09:28 | Inpatient (IN) | payer OTHER, SELFPAY ==
[2024-01-30] VITALS (37 sets, daily range): BP systolic 166–212; BP diastolic 76–103; PULSE 75–96; RESP 20–30; TEMP 35.9–37.8; O2SAT 89–100; BMI 40.6
--- NOTE | 2024-01-30 09:55 | ED.GENADULT ---
HPI - General Adult General Date Seen: 01/30/24 Chief complaint: Shortness of Breath/Dyspnea Stated complaint: Shortness of breath, high bp Time Seen by Provider: 01/30/24 09:55 History of Present Illness HPI narrative: 63 yo F referred to ER from clinic for evaluation of shortness of breath, thought to be due to his COPD exacerbation. Also elevated blood pressure with a blood pressure of 220/100. She has a past medical history notable for COPD. She apparently had COPD and bilateral pneumonia last winter requiring hospitalization at [facility]. She was fairly sick and sent home with home oxygen. She was set up with pulmonology through [facility]. She has had a checkup with them. She has inhalers that she uses p.r.n.. She did get 1 course of steroids over the summer for what was thought to be a COPD flare. She is not on chronic oxygen and does not routinely use her nebulizer. She also reports that she has had trouble with chronic bilateral lower extremity edema in her legs and ankles for the past several months. She has tried Karsten hose and compression wraps without any improvement. Her primary care provider, Dr. Ray again, put her on a short course of Lasix about 2 weeks ago which did not make any substantial difference. She says maybe her legs were ?hard? than normal but she did notice any change in her urination and no overall decrease in her D via. She says she has been checked a couple of times for CHF and apparently has had a normal BNP level at a recheck. She has been checked for coronary disease in apparently had a normal stress test last spring. She does have nitro that she can use p.r.n. if she gets symptoms that she thinks are angina. She really needs to use it. She has had a couple of episodes of chest pain over the past couple of days but has not used her nitro. She is having some chest discomfort that started after she was in the clinic this morning. She has had trouble with chronic hypertension. She typically runs in the 150 systolic range. Her doctors have been adjusting her medicines since last spring. She is currently on valsartan 160 mg daily. She takes aspirin 325 every day. She has been sick lately. It is difficult for her determine exactly how long she has been sick at least 5 days, perhaps a bit longer. She has just been having a little bit more shortness of breath and a bit of a cough since last Monday, 5 days ago. Symptoms may have been going on longer than that. She has not noticed any increasing edema over that time. No fever. She has had a cough that is nonproductive. No sore throat. No sinus drainage. No known sick exposures. She has a home oximeter. She typically runs in the mid 90s. For the past couple of days she has noted oxygen sats in the high 80s with exertion but in the 90s at rest. She just was not feeling very well. So she came to the primary care clinic this morning. Her records from Dr. Moore from today she had presented with edema in her legs and feet, ongoing for the past 3 days. Also shortness of breath for 3 days. Chest pain off and on. Oxygen levels 88-89% for the past 2 days. Acute on chronic shortness of breath. Likely COPD exacerbation. Cannot rule out pneumonia although nothing is suggested on exam. Chest x-ray ordered. Will treat with prednisone 40 mg daily for 5 days and consider antibiotics if the chest x-ray is suggestive of pneumonia. Chest x-ray: Hyperinflation but no acute changes. No focal opacities. Discussed with patient. Discussed pros and cons of antibiotics and we decided to do the azithromycin. Prescription sent in. Also decided to check for influenza, COVID, RSV as it may change treatment strategy. As we discuss this she tells me she has developed headaches 09/12 which is unusual for her. We recheck blood pressure which was really no better making this fit the definition of a hypertensive emergency. Recommend that she be evaluated in the emergency department and she is agreeable to this. Chest x-ray done in clinic this morning. By my review the x-ray looks normal. No infiltrates. Per Radiology... FINDINGS: Lung volumes are similar. Stable mediastinal contours. Mild scarring in the lingula. No infiltrate or edema. No fracture. IMPRESSION: No acute findings. Here in the ER she still feeling short of breath. Mild chest discomfort. She has a mild headache that started this morning in clinic. No blurry vision. No focal numbness or weakness. She does have some chronic bilateral lower extremity a med that is not worse than normal. No fever. No nasal congestion. Related Data Home Medications ?Medication ?Instructions ?Recorded ?Confirmed aspirin 325 mg tablet,delayed 325 mg PO DAILY 02/10/22 01/30/24 release atorvastatin 80 mg tablet 80 mg PO HS 05/04/23 01/30/24 nitroglycerin 0.4 mg sublingual 0.4 mg sublingual Q5M PRN angina 09/18/23 01/30/24 tablet ipratropium 0.5 mg-albuterol 3 mg 3 ml inhalation Q6H PRN 10/24/23 01/30/24 (2.5 mg base)/3 mL nebulization soln valsartan 160 mg tablet 160 mg PO DAILY 01/30/24 01/30/24 Previous Rx's ?Medication ?Instructions ?Recorded albuterol sulfate 90 mcg/actuation 2 puff inhalation Q6H PRN 09/12/23 aerosol inhaler shortness of breath or wheezing #8.5 grams Allergies Allergy/AdvReac Type Severity Reaction Status Date / Time Penicillins Allergy Severe swollen Verified 01/30/24 08:10 legs Sulfa (Sulfonamide Allergy Severe Hives Verified 01/30/24 08:10 Antibiotics) [facility] Medical History (Updated 01/30/24 @ 13:41 by Theodore Madden MD) History of syncope ?Z87.898 - Personal history of other specified conditions (ICD-10) Surgical History (Updated 04/19/22 @ 11:48 by Rupali Tate MD) History of laparoscopy ?Z98.890 - Other specified postprocedural states (ICD-10) History of tubal ligation ?Z98.51 - Tubal ligation status (ICD-10) Family History (Updated 07/03/23 @ 11:15 by Isabela Goodrich) Maternal Grandfather Coronary artery disease Hx of CABG Other High cholesterol Social History (Updated 06/29/23 @ 09:37 by Maria Dolores Figueroa ~ [facility]) What is your current living situation?: I presently have a place to live Problems where you live: no known problems In the past 12 months, utilities in danger of being shut off: no In the past 12 mos, have been you worried that your food would run out before you had money to buy more?: never true In the past 12 mos, the food you bought just didn't last and you didn't have money to buy more?: never true Smoking Status: Current some day smoker How often does anyone, including family, friends and others, physically hurt you: never How often does anyone, including family, friends and others, insult or talk down to you: never How often does anyone, including family, friends and others, threaten you with harm: never How often does anyone, including family, friends and others, scream or curse at you: never Exam Narrative: Exam Narrative: Constitutional: Appears well-developed and well-nourished. Respirations are mildly labored but she is able to speak full sentences. Alert. Conversant. Non toxic. HENT: Head: Atraumatic. Nose: Nose normal. Mouth/Throat: Oral mucosa is clear and moist. no trismus. Pharynx normal. Tonsils symmetric. No tonsillar enlargement, erythema, or exudate. Eyes: Conjunctivae normal. EOM normal. Pupils equal, round, and reactive to light. No scleral icterus. Neck: Normal range of motion. Neck supple. No tracheal deviation present. Cardiovascular: Normal rate, regular rhythm. No gallop. No friction rub. No murmur heard. Symmetric radial artery pulses Pulmonary/Chest: Mildly increased work of breathing but no tripoding or accessory muscle use. Lung sounds are generally clear. No stridor. No respiratory distress. No wheezes. No focal rales. No rhonchi . No tenderness. Abdominal: Soft. No distension. No mass. No tenderness. No rebound. No guarding. Musculoskeletal: RUE: Normal range of motion. No tenderness. No deformity LUE: Normal range of motion. No tenderness. No deformity RLE: Normal range of motion. 2+ nonpitting edema. No tenderness. No deformity LLE: Normal range of motion. 2+ nonpitting edema. No tenderness. No deformity Neurological: Alert and oriented to person, place, and time. Normal strength. CN II-VII intact. No sensory deficit. GCS eye subscore is 4. GCS verbal subscore is 5. GCS motor subscore is 6. Normal coordination Skin: Skin is warm and dry. No rash noted. No pallor. Normal capillary refill. Psychiatric: Normal mood. Normal affect. Very polite. Const: Vital Signs, click to edit/add: Vital Signs - 24 hr 01/30/24 09:45 01/30/24 11:02 01/30/24 11:15 Temperature 100.1 F H Pulse Rate 86 87 Pulse Rate [Pulse Oximeter] 96 Respiratory Rate 26 H Blood Pressure Blood Pressure [Le ft Upper Arm] 212/103 H Pulse Oximetry 95 96 95 Oxygen Delivery Me thod Room Air Oxygen Flow Rate Fraction of Inspir ed Oxygen 01/30/24 11:19 01/30/24 11:20 01/30/24 11:30 Temperature Pulse Rate 82 85 84 Pulse Rate [Pulse Oximeter] Respiratory Rate Blood Pressure 182/85 H Blood Pressure [Le ft Upper Arm] Pulse Oximetry 95 95 100 Oxygen Delivery Me thod Oxygen Flow Rate Fraction of Inspir ed Oxygen 01/30/24 11:39 01/30/24 11:45 01/30/24 11:47 Temperature 99.7 F H Pulse Rate 87 Pulse Rate [Pulse Oximeter] Respiratory Rate Blood Pressure Blood Pressure [Le ft Upper Arm] Pulse Oximetry 98 100 Oxygen Delivery Me thod Nasal Cannula Oxygen Flow Rate 2 Fraction of Inspir ed Oxygen 01/30/24 12:00 01/30/24 12:15 01/30/24 12:44 Temperature Pulse Rate 94 89 Pulse Rate [Pulse Oximeter] Respiratory Rate 30 H Blood Pressure 186/90 H Blood Pressure [Le ft Upper Arm] Pulse Oximetry 99 100 Oxygen Delivery Me thod Oxygen Flow Rate Fraction of Inspir ed Oxygen 01/30/24 13:06 01/30/24 13:15 01/30/24 13:30 Temperature Pulse Rate 91 87 88 Pulse Rate [Pulse Oximeter] Respiratory Rate 26 H Blood Pressure Blood Pressure [Le ft Upper Arm] Pulse Oximetry 98 98 97 Oxygen Delivery Me thod Oxygen Flow Rate Fraction of Inspir ed Oxygen 01/30/24 13:45 01/30/24 14:00 01/30/24 14:15 Temperature Pulse Rate 84 78 86 Pulse Rate [Pulse Oximeter] Respiratory Rate Blood Pressure Blood Pressure [Le ft Upper Arm] Pulse Oximetry 97 89 94 Oxygen Delivery Me thod Oxygen Flow Rate Fraction of Inspir ed Oxygen 01/30/24 14:30 01/30/24 14:45 01/30/24 14:47 Temperature Pulse Rate 84 77 Pulse Rate [Pulse Oximeter] Respiratory Rate Blood Pressure Blood Pressure [Le ft Upper Arm] Pulse Oximetry 95 92 Oxygen Delivery Me thod Oxygen Flow Rate 20 Fraction of Inspir ed Oxygen 30 01/30/24 15:02 Temperature Pulse Rate Pulse Rate [Pulse Oximeter] Respiratory Rate Blood Pressure Blood Pressure [Le ft Upper Arm] 172/76 H Pulse Oximetry Oxygen Delivery Me thod Oxygen Flow Rate Fraction of Inspir ed Oxygen Course Vital Signs Vital signs: Initial Vital Signs Temperature 100.1 F H 01/30/24 09:45 Temperature Source Temporal Artery Scan 01/30/24 09:45 Pulse Rate 96 01/30/24 09:45 Respiratory Rate 26 H 01/30/24 09:45 Blood Pressure 212/103 H 01/30/24 09:45 Blood Pressure Mean 139 H 01/30/24 09:45 Pulse Oximetry 95 01/30/24 09:45 Oxygen Delivery Method Room Air 01/30/24 09:45 Vital Signs Temperature 100.1 F H 01/30/24 09:45 Pulse Rate 96 01/30/24 09:45 Respiratory Rate 26 H 01/30/24 09:45 Blood Pressure 212/103 H 01/30/24 09:45 Pulse Oximetry 95 01/30/24 09:45 Oxygen Delivery Method Room Air 01/30/24 09:45 Temperature 99.7 F H 01/30/24 11:39 Pulse Rate 77 01/30/24 14:45 Respiratory Rate 26 H 01/30/24 13:06 Blood Pressure 172/76 H 01/30/24 15:02 Pulse Oximetry 92 01/30/24 14:45 Oxygen Delivery Method Nasal Cannula 01/30/24 11:47 Oxygen Flow Rate 20 01/30/24 14:47 Fraction of Inspired Oxygen 30 01/30/24 14:47 Medications Administered Medications: Generic Name Dose Route Start Last Admin Trade Name Freq PRN Reason Stop Dose Admin Hydromorphone HCl 0.5 mg 01/30/24 14:49 01/30/24 15:01 Hydromorphone 0.5 Mg/0.5 Ml Inj IVP 0.5 mg Q1H PRN Administration Pain Discontinued Medications Generic Name Dose Route Start Last Admin Trade Name Freq PRN Reason Stop Dose Admin Acetaminophen 1,000 mg 01/30/24 12:27 01/30/24 12:39 Acetaminophen 500 Mg Tablet PO 01/30/24 12:28 1,000 mg ONCE ONE Administration Albuterol/Ipratropium 1 neb 01/30/24 10:39 01/30/24 11:11 Iprat-Albut 0.5-2.5 Mg/3 Ml Neb IH 01/30/24 10:40 1 neb ONCE ONE Administration Aspirin 162 mg 01/30/24 10:39 01/30/24 11:11 Aspirin 81 Mg Tab.Chew PO 01/30/24 10:40 162 mg ONCE ONE Administration Ketorolac Tromethamine 15 mg 01/30/24 11:04 01/30/24 11:10 Ketorolac 15 Mg/Ml Inj IVP 01/30/24 11:05 15 mg ONCE ONE Administration Methylprednisolone Sodium Succinate 125 mg 01/30/24 10:39 01/30/24 11:11 Methylprednisolone Sod Succ 62.5 Mg/Ml (125) IVP 01/30/24 10:40 125 mg ONCE ONE Administration Ondansetron HCl 4 mg 01/30/24 14:49 01/30/24 14:57 Ondansetron 2 Mg/Ml Inj IVP 01/30/24 14:50 4 mg ONCE ONE Administration Medical Decision Making MDM Narrative Medical decision making narrative: Very pleasant 63-year-old female with a complex presentation. 1. Respiratory. She presents with shortness of breath and a bit of a cough. She has a history of COPD. Her primary care provider suspect she may be having a COPD exacerbation. She had used a nebulizer this morning without any significant improvement. On my exam lung sounds are generally clear without any definite wheezing but overall poor aeration. Solu-Medrol administered. After DuoNeb no definite change. Still some labored breathing but still no wheezing. Is moving air bilaterally.. VBG shows normal pH and pCO2 of 45. Chest x-ray done in clinic this morning shows no evidence for any focal pneumonia. No evidence for pulmonary edema to suggest CHF. Her nasal swab is positive for coronavirus by PCR. This would be her 4th confirmed episode of COVID. She has had 3 vaccines but did not get the booster this fall. She does not know where she contracted it. In terms of COVID treatment, she is not sure how long she has been sick but she has been short of breath for at least 5 days. Therefore she would be outside the window for Paxlovid. In terms of disposition, consider hospitalization with COVID, increased work of breathing. she is currently norm ox sick but reports borderline hypoxia with exertion at home. She does have some increased work of breathing at presentation here to the ER. With clear lungs and shortness of breath consider possible PE. D-dimer is normal at 0.45. However, with her marked elevated work of breathing without an obvious infiltrate on her chest x-ray, will obtain chest CT. Shows findings consistent with viral pneumonia but no PE and no other focal consolidation. No evidence for pulmonary edema, pleural effusion, pneumothorax. 2. cardiac. Has no previous history of CHF. No previous history of confirm coronary disease or stents. Does have elevated blood pressure readings today. She reports heard baseline home blood pressures typically in the 150s systolic. With her shortness of breath and headache, consider hypertensive emergency, however in this case I suspect that shortness of breath and headache are likely related to coronavirus rather than hypertension. EKG, creatinine, troponin, BNP show no evidence for end-organ damage. With her associated chest discomfort, consider possible ACS. Aspirin it is heard. 3. Patient also has a headache this morning. Suspect headache related to COVID. Head CT shows no acute findings. Discussed with our hospitalist, Dr. Gutierres. At this point we agreed the patient requires admission because of her shortness of breath and work of breathing although she is not actively hypoxic. She will require monitoring for potential pulmonary deterioration in the setting of coronavirus. At this point she is not a candidate for Paxlovid since we believe she has been sick for at least 5 days or longer. She received steroids here in the ER (as empiric therapy for COPD which also may give some benefit for COVID). Hospitalist will consider remdesivir or other COVID specific treatments. Lab Data Labs: Lab Results 01/30/24 01/30/24 01/30/24 Range/Units 10:41 10:55 13:38 WBC 7.13 (4.50-11.00) K/uL RBC 3.82 L (4.00-5.20) m/uL Hgb 11.8 L (12.0-16.0) gm/dL Hct 36.5 (33.0-51.0) % MCV 96 (80-100) fL MCH 31 (26-34) pg MCHC 32 (32-36) gm/dL RDW Coeff of Amelia 12.3 (11.5-15.5) % Plt Count 276 (140-440) K/uL Neut % (Auto) 79.6 H (42.0-72.0) % Lymph % (Auto) 5.3 L (20-44) % [place] % (Auto) 11.4 H (0.0-11.0) % Eos % (Auto) 2.5 (0.0-7.0) % Baso % (Auto) 0.6 (0.0-3.0) % Neut # (Auto) 5.70 (1.7-7.0) K/uL Lymph # (Auto) 0.40 L (0.90-2.90) K/uL [place] # (Auto) 0.80 (0.00-0.90) K/UL Eos # (Auto) 0.18 (0.00-0.50) K/uL Baso # (Auto) 0.04 (0.00-0.30) K/uL Abs Immat Gran (auto) 0.04 (0.00-0.30) K/uL Imm/Tot Granulo (auto) 0.6 % INR 0.92 (0.91-1.10) D-Dimer Quant (PE/DVT) 0.45 (0.00-0.50) ug/ml VBG pH 7.394 (7.32-7.43) VBG pCO2 45 (40-50) mmHG VBG pO2 31.9 (25-47) mmHG VBG HCO3 27 (21-28) mmol/L Sodium 135 (135-149) mmol/L Potassium 4.1 (3.6-5.1) mmol/L Chloride 102 (96-114) mmol/L Carbon Dioxide 27 (20-32) mmol/L Anion Gap 6 L (7-15) mEq/L BUN 9 (7-30) mg/dL Creatinine 0.4 L (0.5-1.5) mg/dL Estimated Creat Clear 41.36 Estimated GFR 111 ml/min Glucose 96 (60-115) mg/dL Lactate 0.9 (0.5-1.9) mmol/L Calcium 9.1 (8.4-10.6) mg/dL NT-Pro-B Natriuret Pep 166 pg/mL POC Troponin I 0.00 L 0.00 L (0.01-0.04) ng/ml Imaging Data CT scan - chest: Attestation: I have reviewed the pertinent imaging results. Radiologist's impression: IMPRESSION: No pulmonary embolism. Peribronchial thickening consistent with viral pneumonia. No focal consolidations. Pulmonary emphysema. CT scan - head: Attestation: I have reviewed the pertinent imaging results. Radiologist's impression: IMPRESSION: Chronic right occipital lobe infarct. No acute infarct, intracranial hemorrhage, mass, mass effect or hydrocephalus. ECG Data Attestation: I personally reviewed and interpreted this ECG as follows: Interpretation: Normal sinus rhythm Rate: 83 MA: 150 QRS axis: Normal axis. No pathologic Q-waves. ST segment/T wave: No ST segment elevation or depression. QTc: 404 Discharge Plan Discharge Clinical Impression: COVID-19, Acute dyspnea, Headache, Hypertension Patient Disposition: Admitted As Observation
--- OUTSIDE RECORDS SUMMARY | 2024-01-30 10:52 | XMS_ITS | Encounter Summary ---
Author Organization [facility] Address [address] [place] [address] Care Team Providers Care Color Printer Operator Name Role Phone Elsewhere, Pcp Primary Care Provider Unavailabl e Reason for Referral * Outpatient (Routine) - Closed Specialty Diagnoses / Procedures Referred By Carey escobar Referred To Contact Diagnoses Sleep Disorder Sleep Related Hypoxemia Procedures Polysomnography (PSG): Split Night; CPAP, Bilevel S Mode, Bilevel S-T Mode Baylee Pike M.D. [address] [place] [address] Phone: tel: fax: [facility] [place] Referral ID Status Reason Start Date Expiration Date Visits Re quested Visits Authorized [id number] Closed 10/31/2023 10/30/2024 1 1 R SUPPLY TECHNICIAN Reason for Visit * Outpatient (Routine) - Closed Specialty Diagnoses / Procedures Referred By Carey escobar Referred To Contact Diagnoses Sleep Disorder Sleep Related Hypoxemia Procedures Polysomnography (PSG): Split Night; CPAP, Bilevel S Mode, Bilevel S-T Mode Baylee Pike M.D. [address] [place] [address] Phone: tel: fax: [facility] [place] Referral ID Status Reason Start Date Expiration Date Visits Re quested Visits Authorized [id number] Closed 10/31/2023 10/30/2024 1 1 Encounter Details Date Type Department Care Team (Latest Contact Info) Description 01/16/2024 6:06 PM WATER SUPPLY TECHNICIAN - 01/19/2024 11:59 PM WATER SUPPLY TECHNICIAN [facility] [place], [place] [address] [place] [address] Baylee Pike M.D. [address] [place] [address] Sleep Disorder; Sleep Related Hypoxemia Discharge Disposition: Home or Self Care Social History Tobacco Use Types Packs/Day Years Used Date Smoking Tobacco: Former Cigarettes 1 49.1 0 03/14/1974 - 04/24/2023 Smokeless Tobacco: Never Alcohol Use Standard Drinks/Week Comments Yes 0 (1 standard drink = 0.6 oz pur e alcohol) Very very rarely [facility] Utilities Answer Date Recorded In the past 12 months has [employer], gas, oil, or water [employer] threatened to shut off services in your [...] How often do you attend hindu or lutheran serv ices? Never 07/20/2019 Active Member of [...] 27) 6 04/29 Nutrition Answer Date Recorded On average, how many serving s of [...] living situation today? I have a [facility] to live 05/17/2023 Education Answer Date Recorded What is the highest level of school you have completed or the highest degree you have received? Associate degree: academic program 02/12/2019 Comments No Sex and Gender Information Value Date Recorded Sex Assigned at Female 05/07/2023 12:13 PM WATER SUPPLY TECHNICIAN Legal Sex Female 3:09 AM WATER SUPPLY TECHNICIAN Gender Identity Female 07/20/2019 7:51 PM CDT Sexual Orientation Straight 07/20/2019 7: 51 PM CDT documented as of this encounter Medications at Time of Discharge acetaminophen (TYLENOL) 500 mg tablet Take 1,000 mg by mouth as needed for pain. albuterol 90 mcg/actuation inhalerIndication s:Shortness Of Breath,Chronic Obstructive Pulmonary Disease (HCC) Inhale 2 puffs every 4 (four) hours as needed for wheezing or shortness of breath. 1 g 11 05/23/2023 aspirin, buffered, 325 mg tablet Take 1 tablet (325 mg total) by mouth daily. 360 tablet 04/06/2019 atorvastatin (LIPITOR) 80 mg tabletIndications :Stroke (HCC) Take 1 tablet (80 mg total) by mouth at bedtime. 90 tablet 3 04/26/2023 benzonatate (Tessalon Perles) 100 mg capsule Take 100 mg by mouth every 4 (four) hours as needed. 02/24/2022 glycopyrrolate-fo rmoteroL (Bevespi Aerosphere) 9-4.8 mcg HFA aerosol inhaler inhalerIndication s:Chronic Obstructive Pulmonary Disease (HCC) Inhale 2 puffs 2 (two) times a day. 10.7 g 11 11/27/2023 ibuprofen (ADVIL,MOTRIN) 200 mg tablet Take 400 mg by mouth as needed for pain. ipratropium-albut Abram (DuoNeb) 0.5-2.5 mg/3 mL nebulizer solutionIndicatio ns:Chronic Obstructive Pulmonary Disease (HCC) Inhale 3 mL by nebulization 4 (four) times a day as needed for wheezing or shortness of breath. 90 mL 11 10/10/2023 nitroglycerin (NITROSTAT) 0.[address] 1 tablet (0.4 mg total) under the tongue every 5 (five) minutes as needed for chest pain. 30 tablet 04/26/2023 valsartan (Diovan) 160 mg tablet Take 1 tablet by mouth daily. 09/18/2023 documented as of this encounter Plan of Treatment Upcoming Encounters Date Type Department Care Team (Late st Contact Info) Description 02/19/2024 2:30 PM WATER SUPPLY TECHNICIAN Clinical Communication Virtual Review in [place], [place] [address] [place] [address] 02/20/2024 9:00 AM WATER SUPPLY TECHNICIAN Comprehensive Visit Division of Endocrinology in [place], [place] [address] [place] [phone] Robin Valenzuela M.D., M.P.H. [address] [place] [phone] 02/20/2024 10:00 AM WATER SUPPLY TECHNICIAN Clinical Support Department of Nutrition and Diabetes Education in [address] [phone] Anum Jacobson, AMEENA, C.N.P., D.N.P. [address] [place] [phone] Flo Joyner M.SJustin, RDN, LD [address] [place] [phone] 02/29/2024 11:30 AM WATER SUPPLY TECHNICIAN [facility] [place], [place] [address] [place] [phone] Baylee Pike M.D. [address] [place] [phone] Pending Results Name Type Priority Associated Diagnoses Date /Time Polysomnography (PSG): Split Night; CPAP, Bilevel S Mode, Bilevel S-T Mode Sleep Center Routine Sleep Disorder Sleep Related Hypoxemia 01/17/2024 3:31 AM WATER SUPPLY TECHNICIAN Scheduled Orders Name Type Priority Associated Diagnoses Order Schedule Polysomnography (PSG): Split Night; CPAP, Bilevel S Mode, Bilevel S-T Mode Sleep Center Routine Sleep Disorder Sleep Related Hypoxemia Once for 1 Occurrences starting 01/16/2024 until 01/16/2024 documented as of this encounter Visit Diagnoses Diagnosis Sleep Disorder Sleep Related Hypoxemia documented in this encounter Additional Health Concerns Assessment Noted Time PHQ-9 Depression Total Score: 6 04/29/19 20 12:40 PM WATER SUPPLY TECHNICIAN documented as of this encounter Care Teams Color Printer Operator Relationship Specialty Start Date End Date Elsewhere, Pcp PCP - General Internal Medicine 04/24/23 documented as of this encounter
--- OUTSIDE RECORDS SUMMARY | 2024-01-30 10:52 | XMS_ITS | Clinical Summary ---
[facility] Organization [facility] Address [address] [place] [address] Care Team Providers Care Tours Captain Name Role Phone Elsewhere, Pcp Primary Care Provider Unavailabl e Source Comments Patient records contain information from all sites at [facility]. For routine questions regarding patient records, call [phone] during business hours, M-F 8:00 AM - 5:00 PM Central Time. Record requests for emergency care only can be directed to [phone] at any time.[facility] Allergies Active Allergy Reactions Criticality Noted Date Comments Penicillins Edema (Reselect Reaction),Other (see comments) High 06/12/2010 Penicillin injectables ONLY Sulfa (Sulfonamide Antibiotics) Hives (Reselect Reaction),Hives only, no other systemic symptoms High 06/12/2010 Medications * This document contains information received from the source organization and may not represent a complete record from that organization. aspirin, buffered, 325 mg tablet Take 1 tablet (325 mg total) by mouth daily. 360 tablet 04/06/19 20 Active acetaminophen (TYLENOL) 500 mg tablet Take 1,000 mg by mouth as needed for pain. Active ibuprofen (ADVIL,MOTRIN) 200 mg tablet Take 400 mg by mouth as needed for pain. Active atorvastatin (LIPITOR) 80 mg tabletIndication s:Stroke (HCC) Take 1 tablet (80 mg total) by mouth at bedtime. 90 tablet 3 04/26/19 24 Active nitroglycerin (NITROSTAT) 0.[address] 1 tablet (0.4 mg total) under the tongue every 5 (five) minutes as needed for chest pain. 30 tablet 04/26/19 24 Active albuterol 90 mcg/actuation inhalerIndicatio ns:Shortness Of Breath,Chronic Obstructive Pulmonary Disease (HCC) Inhale 2 puffs every 4 (four) hours as needed for wheezing or shortness of breath. 1 g 11 05/23/19 24 Active ipratropium-albu teroL (DuoNeb) 0.5-2.5 mg/3 mL nebulizer solutionIndicati ons:Chronic Obstructive Pulmonary Disease (HCC) Inhale 3 mL by nebulization 4 (four) times a day as needed for wheezing or shortness of breath. 90 mL 11 10/10/19 24 Active valsartan (Diovan) 160 mg tablet Take 1 tablet by mouth daily. 09/18/19 24 Active benzonatate (Tessalon Perles) 100 mg capsule Take 100 mg by mouth every 4 (four) hours as needed. 02/25/20 22 Active glycopyrrolate-f ormoteroL (Bevespi Aerosphere) 9-4.8 mcg HFA aerosol inhaler inhalerIndicatio ns:Chronic Obstructive Pulmonary Disease (HCC) Inhale 2 puffs 2 (two) times a day. 10.7 g 11 11/27/19 24 025 Active predniSONE (Deltasone) 20 mg tabletIndication s:Chronic Obstructive Pulmonary Disease Exacerbation (HCC) Take 2 tablets (40 mg total) by mouth daily for 5 days. 10 tablet 12/26/19 24 024 doxycycline hyclate (LymePak) 100 mg tabletIndication s:Chronic Obstructive Pulmonary Disease Exacerbation (HCC) Take 1 tablet (100 mg total) by mouth 2 (two) times a day for 5 days. 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 Sleep Disorder; Sleep Related Hypoxemia Discharge Disposition: Home or Self Care 12/26/2023 Orders Only Division of Pulmonary Medicine in [place], [place] [address] [place] [phone] Anum Jacobson APRN, C.N.P., D.N.P. Chronic Obstructive Pulmonary Disease Exacerbation (HCC) (Primary Dx) 11/27/2023 11:02 AM CDT - 11/27/2023 11:59 PM CDT Hospital Encounter Department of Laboratory Medicine and Pathology, [facility] in [place], [place] [address] [place] [phone] Anum Jacobson APRN, C.N.P., D.N.P. Shortness Of Breath; Edema Lower Extremity; Obesity Body Mass Index 30-39.9 Adult; Fatigue Discharge Disposition: Home or Self Care 11/27/2023 10:00 AM CDT Office Visit Division of Pulmonary Medicine in [place], [place] [address] [place] [phone] Anum Jacobson APRN, C.N.P., D.N.P. Chronic Obstructive Pulmonary Disease (HCC) (Primary Dx); Obesity Body Mass Index 30-39.9 Adult; Smoking Tobacco Use Personal History; Shortness Of Breath; Edema Lower Extremity; Fatigue 11/27/2023 8:00 AM CDT Diagnostic Division of Pulmonary Medicine in [place], [place] [address] [place] [phone] Anum Jacobson, AMEENA, C.N.P., D.N.P. Chronic Obstructive Pulmonary Disease Exacerbation (HCC) 11/24/2023 1:30 PM CDT Clinical Communication Virtual Review in [place], [place] 200 [place] [phone] Pre-visit Intake 11/02/2023 Clinical Communication Department of Nicotine Dependence, [facility], in [place], [place] [address] [place] [phone] Dino Castillo M.A. Nicotine Dependence 10/31/2023 2:30 PM CDT Comprehensive Visit [facility] [place], [place] [address] [place] [phone] Baylee Pike M.D. Sleep Disorder (Primary Dx); Chronic Obstructive Pulmonary Disease (HCC); Snoring; Sleep Related Hypoxemia from Last 3 Months Immunizations Name Administration Dates Next Due H1N1 All Forms 12/31/2008 Influenza, Unspecified 12/09/2009 Family History Medical History Relation Name Comments Dementia Brother Mckinley Carrillo Early onset Al zheimer s Alcohol abuse Father Francisco Carrillo Jr Suicide Attempts Father Francisco Carrillo Jr Coronary artery disease Maternal Grandfather Gallo Go dwin Hyperlipidemia Maternal Grandfather Gallo Banks Skin cancer Maternal Grandfather Gallo Banks Arthritis Mother Tiffanie Bravo Dementia Mother Tiffanie Bravo Diabetes Mother Tiffanie Bravo Hyperlipidemia Mother Tiffanie Bravo Alcohol abuse Paternal Grandfather Francisco alvarado Sr Alcohol abuse Paternal Grandmother Marge Carrillo ADD Son 1 Tyrell Keegan Drug abuse Son 1 Tyrell Keegan Psychiatric Son 1 Tyrell Keegan ADD Son 2 Raymundo Allison Relation Name Status Comments Brother Mckinley Lorena Father Francisco Carrillo Jr Maternal Grandfather Gallo Darren Mother Tiffanie Bravo Paternal Grandfather Francisco alvarado Sr Paternal Grandmother Marge Carrillo Son 1 Tyrell Keegan Son 2 Raymundo Allison Social History Tobacco Use Types Packs/Day Years Used Date Smoking Tobacco: Former Cigarettes 1 49.1 0 03/14/1974 - 04/24/2023 Smokeless Tobacco: Never Tobacco Cessation:Counseling Given: Not Answered Alcohol Use Standard Drinks/Week Comments Yes 0 (1 standard drink = 0.6 oz pur e alcohol) Very very rarely [facility] Utilities Answer Date Recorded In the past [...] Never 07/20/2019 How often do you attend restorationism or yarsani serv ices? Never 07/20/2019 Active Member of [...] Answer Date Recorded PHQ-2 Score 2 04/29/2019 [facility] [place] of Occupat ional Health - Occupational Stress [...] your living situation today? I have a [facility] place to live 05/17/2023 Education Answer Date Recorded What is the highest level of school you have completed or the highest degree you have received? Associate degree: academic program 02/12/2019 Comments No Sex and Gender Information Value Date Recorded Sex Assigned at Female 05/07/2023 12:13 PM CHARGE POSTER Legal Sex Female 3:09 AM CHARGE POSTER Gender Identity Female 07/20/2019 7:51 PM CDT Sexual Orientation Straight 07/20/2019 7: 51 PM CDT Last Filed Vital Signs Vital Sign Reading Time Taken Comments Blood Pressure 137/75 10/31/2023 2:20 PM CDT Pulse 98 10/31/2023 2:20 PM CDT Temperature 36.6 C (97.9 F) 04/26/2023 12:20 PM CHARGE POSTER Respiratory Rate 16 04/26/2023 12:20 PM CHARGE POSTER Oxygen Saturation 93% 11/27/2023 9:49 AM CDT Inhaled Oxygen Concentration - - Weight 91 kg (200 lb 9.9 oz) 10/31/2023 2:20 PM CDT Height 155 cm (5' 1.02) 10/31/2023 2:20 PM CDT Body Mass Index 37.88 10/31/2023 2:20 PM CDT Plan of Treatment Upcoming Encounters Date Type Department Care Team (Late st Contact Info) Description 02/19/2024 2:30 PM CHARGE POSTER Clinical Communication Virtual Review in [place], [place] [address] [place] [phone] 02/20/2024 9:00 AM CHARGE POSTER Comprehensive Visit Division of Endocrinology in [place], [place] [address] [place] [phone] Robin Valenzuela M.D., M.P.H. [address] [place] [phone] 02/20/2024 10:00 AM CHARGE POSTER Clinical Support Department of Nutrition and Diabetes Education in [place], [place] [address] [place] [phone] Anum Jacobson, STUDENT AMBASSADOR, C.N.P., D.N.P. [address] [place] [phone] Flo Joyner M.SJustin, RDN, LD [address] [place] [phone] 02/29/2024 11:30 AM CHARGE POSTER [facility] [place], [place] [address] [place] [phone] Baylee Pike M.D. [address] [place] [phone] Health Maintenance Due Date Last Done Comments CT Colonography 1960 Cologuard 1960 Colonoscopy 1960 Colorectal Cancer Surveillance 1960 HIV Screening 1960 Hepatitis C Screening 1960 Mammogram 1960 Cervical/Vaginal Cancer Screening 06/21/2019 06/20/2016 Zoster Vaccines (2 of 2) 03/31/2020 02/04/2020 RSV vaccine - (32-36 weeks) or 60+ years (1 - Risk 60-74 years 1-dose series) 2020 Depression Screening (Annual PHQ-2) 03/06/2023 COVID-19 Vaccine ( season) 2023 04/27/2021, 03/24/2020, 02/26/2020 Influenza Vaccine (#1) 2023 , 01/07/2022, 12/12/2020, Additional history exists Creatinine Level (Kidney Function Test) 04/26/2024 04/26/2023, 04/25/2023, 04/24/2023, Additional history exists Potassium Level 04/26/2024 04/26/2023, 02/2 , 04/24/2023, Additional history exists Sodium Level 04/26/2024 04/26/2023, 02/2 , 04/24/2023, Additional history exists Lung Cancer Screening 05/21/2024 05/22/2023 Office Visit for Blood Pressure Check / Re-check 10/30/2024 10/31/2023 Fasting Glucose for Diabetes Screening 04/26/2026 04/26/2023, 04/25/2023, 04/24/2023, Additional history exists Lipid (Cholesterol) Screening 07/04/2028 07/05/2023, 04/25/2023, 02/12/2019, Additional history exists DTaP,Tdap,and Td Vaccines (3 - Td or Tdap) 02/03/2030 02/04/2020, 09/01/2009 Pneumococcal vaccine (0-64 years) Completed 07/21/2022 IPV Vaccines Aged Out No longer eligi ble based on patient's age to complete this topic Procedures Procedure Name Priority Date/Time Associated Diagnosis Comments THYROID FUNCTION CASCADE, S Routine 11/27/2023 11:12 AM CDT Shortness Of Breath Obesity Body Mass Index 30-39.9 Adult Fatigue D-DIMER, P Routine 11/27/2023 11:11 AM CDT Shortness Of Breath Edema Lower Extremity PULMONARY FUNCTION TESTS Routine 11/27/2023 7:56 AM CDT Shortness Of Breath Chronic Obstructive Pulmonary Disease (HCC) EXHALED NITRIC OXIDE Routine 11/27/2023 7:43 AM CDT Chronic Obstructive Pulmonary Disease Exacerbation (HCC) LIPID PANEL, S Routine 07/05/2023 9:54 AM CDT Abdominal Aortic Aneurysm Without Rupture Unspecified (HCC) CT CHEST WITHOUT IV CONTRAST RAD - Routine (most inpatients and all outpatients) 05/22/2023 3:02 PM CDT Shortness Of Breath BASIC METABOLIC PANEL, S/P Routine 04/26/2023 10:43 AM CHARGE POSTER from Last 3 Months or Most Recently Relevant to Health Maintenance Results * Thyroid Function Mineral (11/27/2023 11:12 AM CDT) TSH, Sensitive 1.8 0.3 - 4.2 mIU/L 11/27/2023 12:14 PM CDT DTL Blood (Blood, Venous) 11/27/2023 11:12 AM CDT 11/27/2023 11:49 AM CDT Anum Jacobson APRN, C.N.P., D.N.P. LAB BLOOD ADD-ON Final Result [facility] [address] [place] [address], [facility] DTL [facility] [address] [place] [address] * D-Dimer (11/27/2023 11:11 AM CDT) D-Dimer, P 383 <=500 ng/mL FEU 11/27/2023 11:52 AM CDT DTL Comment: ----ADDITIONAL INFORMATION---- D-dimer values less than or equal to 500 ng/mL fibrinogen equivalent units (FEU) may be used in conjunction with clinical pre-test probability to exclude deep vein thrombosis (DVT) and/or pulmonary embolism (PE). Blood (Blood, Venous) 11/27/2023 11:11 AM CDT 11/27/2023 11:33 AM CDT Anum Jacobson APRN, C.N.P., D.N.P. LAB BLOOD ADD-ON Final Result [facility] [address] [place] [address], [facility] [address] [place] [address] * Pulmonary Function Tests (11/27/2023 7:56 AM CDT) FVC 2.30 L 11/27/2023 9:07 AM CDT [facility] FEV1 0.93 L 11/27/2023 9:07 AM CDT [facility] FEV1/FVC 40.41 % 11/27/2023 9:07 AM CDT [facility] STV77-95% 0.24 L/s 11/27/2023 9:07 AM CDT [facility] PEF PRE 3.25 L/s 11/27/2023 9:07 AM CDT [facility] PIF PRE 3.41 L/s 11/27/2023 9:07 AM CDT [facility] FEF 50 % FIF 50 PRE 9.41 % 11/27/2023 9:07 AM CDT [facility] FET PRE 15.28 sec 11/27/2023 9:07 AM CDT [facility] DLCO 8.51 ml/(min*mm Hg) 11/27/2023 9:07 AM CDT [facility] VA 3.49 L 11/27/2023 9:07 AM CDT [facility] PulseRest 77.00 1/min 11/27/2023 9:07 AM CDT [facility] Y1WpeNmdu 94.00 % 11/27/2023 9:07 AM CDT [facility] PulseExer 104.00 1/min 11/27/2023 9:07 AM CDT [facility] EXER TIME 1.00 min 11/27/2023 9:07 AM CDT [facility] STEP HEIGHT PRE 9.00 Inch 11/27/2023 9:07 AM CDT [facility] TLC 4.98 L 11/27/2023 9:07 AM CDT [facility] FRCPLETH PROVBASE 3.41 L 11/27/2023 9:07 AM CDT [facility] RV 2.53 L 11/27/2023 9:07 AM CDT [facility] RV % TLC PRE 50.74 % 11/27/2023 9:07 AM CDT [facility] 11/27/2023 7:56 AM CDT Impressions [facility] - 11/27/2023 9:07 AM CDT Abnormal. Moderate obstruction with air trapping. DLCO, not adjusted for hemoglobin, is also severely reduced consistent with a pulmonary parenchymal or vascular process. Oximetry is normal at rest. bronchodilator not given as per protocol as patient had taken her own just prior to testing. Compared to 05/23/2023, FVC has increased, and DLCO appears to have mildly declined. Narrative Procedure Note Penelope Schroeder M.D. - 11/27/2023 IMPRESSION: Abnormal. Moderate obstruction with air trapping. DLCO, not adjusted forhemoglobin, is also severely reduced consistent with a pulmonaryparenchymal or vascular process. Oximetry is normal at rest.bronchodilator not given as per protocol as patient had taken her own just prior to testing. Compared to 05/23/2023, FVC hasincreased, and DLCO appears to have mildly declined. Anum Jacobson APRN, C.N.P., D.N.P. PFT ORDER KEYLA Final Result [facility] NA * PUL Exhaled Nitric Oxide (11/27/2023 7:43 AM CDT) Exhaled NO Oral 9 ONBASE Parts per billion (ULN) 39 ONBASE ENOComment Patient uses Albuterol ONBASE Anum B Indira LINDQUIST C.N.P., D.N.P. PFT ORDER KEYLA Final Result ONBASE NA * Lipid Panel (07/05/2023 9:54 AM CDT) [...] 9:54 AM CDT 07/05/2023 10:35 AM CDT us Dilcia Ingram D.O. LAB BLOOD ADD-ON Final Re sult [facility] [address] [place] [address], [place] DTL [facility] [address] [place] [address] * CT Chest without IV Contrast (05/22/2023 3:02 PM CDT) Anatomical Region Laterality Modality Chest, Thoracic RST LOS, Tho racic ARZ LOS, Thoracic FLA LOS N/A Computed Tomography, Compute d Tomography Impressions 05/22/2023 5:44 PM CDT 1. Severe upper lung predominant centrilobular seen in the. 2. Severe coronary artery calcification. Narrative 05/22/2023 5:44 PM [...] with sequelae of prior granulomatous disease. Cardiovascular: Severe coronary artery calcifications and moderate aorta and [...] in the. 2. Severe coronary artery calcification. us Perla Lorenz M.D. IMG CT PROCEDURES Final Re sult * Basic Metabolic Panel (04/26/2023 10:43 AM CHARGE POSTER) Pathologist [facility] Potassium, S 4.9 3.6 - 5.2 mmol/L 04/26/2023 12:05 PM CHARGE POSTER DTL Sodium, S 137 135 - 145 mmol/L 04/26/2023 12:05 PM CHARGE POSTER DTL Chloride, S 99 98 - 107 mmol/L 04/26/2023 12:05 PM CHARGE POSTER DTL Bicarbonate, S 28 22 - 29 mmol/L 04/26/2023 12:05 PM CHARGE POSTER DTL Anion Gap 10 7 - 15 04/26/2023 12:05 PM CHARGE POSTER DTL BUN (Blood Urea Nitrogen), S 19 6 - 21 mg/dL 04/26/2023 12:05 PM CHARGE POSTER DTL Creatinine 0.63 0.59 - 1.04 mg/dL 04/26/2023 12:05 PM CHARGE POSTER DTL Estimated GFR (eGFR) >90 >=60 mL/min/BSA 04/26/2023 12:05 PM CHARGE POSTER DTL Comment: Estimated GFR calculated using the 2020 CKD_EPI creatinine equation. Calcium, Total, S 9.3 8.8 - 10.2 mg/dL 04/26/2023 12:05 PM CHARGE POSTER DTL Glucose, S 95 70 - 140 mg/dL 04/26/2023 12:05 PM CHARGE POSTER DTL Blood (Blood, Venous) 04/26/2023 10:43 AM CHARGE POSTER 04/26/2023 11:31 AM CHARGE POSTER us Krupa Bates M.D. LAB BLOOD ADD-ON Final Result [facility] [address] [place] [address], [place] DTL [facility] [address] [place] [address] from Last 3 Months or Most Recently Relevant to Health Maintenance Insurance [facility] [place] [address] Advance Directives For more information, please contact: [phone] * Full Code (Latest Code Status on File) Date Activated Date Inactivated Comments 04/24/2023 5:03 AM 04/26/2023 3:35 PM Question Answer Comments Full Code: Discussed * Full Code Date Activated Date Inactivated Comments 01/04/2019 11:20 PM 01/05/2019 7:41 PM Question Answer Comments Full Code: Discussed Care Teams Tours Captain Relationship Specialty Start Date End Date Elsewhere, Pcp PCP - General Internal Medicine 04/24/23
--- OUTSIDE RECORDS SUMMARY | 2024-01-30 10:52 | XMS_ITS | Referral Summary ---
Author Organization [facility] Address [address] [place] [address] Care Team Providers Care Instrumentation Technician Name Role Phone Elsewhere, Pcp Primary Care Provider Unavailabl e Source Comments Patient records contain information from all sites at [facility]. For routine questions regarding patient records, call [phone] during business hours, M-F 8:00 AM - 5:00 PM Central Time. Record requests for emergency care only can be directed to [phone] at any time.[facility] Encounters Date Type Department Care Team Description 01/16/2024 6:06 PM CUSTOM DRESSMAKER - 01/19/2024 11:59 PM CUSTOM DRESSMAKER Hospital Encounter [facility] in [place], [place] [address] [place] [phone] Baylee Pike M.D. Sleep Disorder; Sleep Related Hypoxemia Discharge Disposition: Home or Self Care 12/26/2023 Orders Only Division of Pulmonary Medicine in [place], [place] [address] [place] [phone] Anum Jacobson, AMEENA, C.N.P., D.N.P. Chronic Obstructive Pulmonary Disease Exacerbation (HCC) (Primary Dx) 11/27/2023 11:02 AM CDT - 11/27/2023 11:59 PM CDT Hospital Encounter Department of Laboratory Medicine and Pathology, [facility], in [place], [place] [address] [place] [address] Anum Jacobson APRN C.N.PJustin, D.N.P. Shortness Of Breath; Edema Lower Extremity; Obesity Body Mass Index 30-39.9 Adult; Fatigue Discharge Disposition: Home or Self Care 11/27/2023 8:00 AM CDT Diagnostic Division of Pulmonary Medicine in [address] [phone] Anum Jacobson APRN, C.N.PJustin, D.N.P. Chronic Obstructive Pulmonary Disease Exacerbation (HCC) 11/27/2023 10:00 AM CDT Office Visit Division of Pulmonary Medicine in [address] [phone] Anum Jacobson APRN C.N.P., D.N.P. Chronic Obstructive Pulmonary Disease (HCC) (Primary Dx); Obesity Body Mass Index 30-39.9 Adult; Smoking Tobacco Use Personal History; Shortness Of Breath; Edema Lower Extremity; Fatigue 11/24/2023 1:30 PM CDT Clinical Communication Virtual Review in [address] [phone] Pre-visit Intake 11/02/2023 Clinical Communication Department of Nicotine Dependence, [facility], in [address] [phone] Dino Castillo M.A. Nicotine Dependence 10/31/2023 2:30 PM CDT Comprehensive Visit [facility] in [address] [phone] Baylee Pike M.D. Sleep Disorder (Primary Dx); Chronic Obstructive Pulmonary Disease (HCC); Snoring; Sleep Related Hypoxemia from Last 3 Months Allergies Active Allergy [...] Smoking Cessation 04/26/2023 Atherosclerotic Heart Diseas e [place] Coronary Artery With Other Forms Angina Pectoris [...] oz pur e alcohol) Very very rarely [facility] Utilities Answer Date Recorded In the past 12 months has [facility] [employer], gas, oil, or water [employer] threatened to shut off services in your [...] Never 07/20/2019 How often do you attend yazdanism or faith serv ices? Never 07/20/2019 Active Member of [...] Answer Date Recorded PHQ-2 Score 2 04/29/2019 [facility] Occupat ional Health - Occupational [...] your living situation today? I have a [facility] place to live 05/17/2023 Education Answer Date Recorded What is the highest level of school you have completed or the highest degree you have received? Associate degree: academic program 02/12/2019 Comments No Sex and Gender Information Value Date Recorded Sex Assigned at Female 05/07/2023 12:13 PM CUSTOM DRESSMAKER Legal Sex Female 3:09 AM CUSTOM DRESSMAKER Gender Identity Female 07/20/2019 7:51 PM CDT Sexual Orientation Straight 07/20/2019 7: 51 PM CDT Last Filed Vital Signs Vital Sign Reading Time Taken Comments Blood Pressure 137/75 10/31/2023 2:20 PM CDT Pulse 98 10/31/2023 2:20 PM CDT Temperature 36.6 C (97.9 F) 04/26/2023 12:20 PM CUSTOM DRESSMAKER Respiratory Rate 16 04/26/2023 12:20 PM CUSTOM DRESSMAKER Oxygen Saturation 93% 11/27/2023 9:49 AM CDT Inhaled Oxygen Concentration - - Weight 91 kg (200 lb 9.9 oz) 10/31/2023 2:20 PM CDT Height 155 cm (5' 1.02) 10/31/2023 2:20 PM CDT Body Mass Index 37.88 10/31/2023 2:20 PM CDT Plan of Treatment Upcoming Encounters Date Type Department Care Team (Late st Contact Info) Description 02/19/2024 2:30 PM CUSTOM DRESSMAKER Clinical Communication Virtual Review in [place], [place] [address] [place] [address] 02/20/2024 9:00 AM CUSTOM DRESSMAKER Comprehensive Visit Division of Endocrinology in [place], [place] [address] [place] [phone] Robin Valenzuela M.D., M.P.H. [address] [place] [phone] 02/20/2024 10:00 AM CUSTOM DRESSMAKER Clinical Support Department of Nutrition and Diabetes Education in [place], [place] [address] [place] [phone] Anum Jacobson, AMEENA, C.N.P., D.N.P. [address] [place] [phone] Flo Joyner M.S., RDN, LD [address] [place] [phone] 02/29/2024 11:30 AM CUSTOM DRESSMAKER Office Visit [facility] in [place], [place] [address] [place] [phone] Baylee Pike M.D. [address] [place] [phone] Procedures Procedure Name Priority Date/Time Associated Diagnosis [...] METABOLIC PANEL, S/P Routine 04/26/2023 10:43 AM CUSTOM DRESSMAKER from Last 3 Months or Most Recently Relevant to Health Maintenance Results * Thyroid Function [place] (11/27/2023 11:12 AM CDT) TSH, Sensitive 1.8 0.3 - 4.2 mIU/L 11/27/2023 12:14 PM CDT DTL Blood (Blood, Venous) 11/27/2023 11:12 AM CDT 11/27/2023 11:49 AM CDT Anum Jacobson APRN, Kannan.N.P., D.N.P. LAB BLOOD ADD-ON Final Result Performing Organization Address [facility] de Phone Number [address] [place] [address] * D-Dimer (11/27/2023 11:11 AM CDT) Pathologist [facility] D-Dimer, P 383 <=500 ng/mL FEU 11/27/2023 [...] C.N.P., D.N.P. LAB BLOOD ADD-ON Final Result Performing Organization Address [facility] Co de Phone Number [facility] [address] [place] [address] * Pulmonary Function Tests (11/27/2023 7:56 AM CDT) FVC 2.30 L 11/27/2023 9:07 AM CDT [facility] FEV1 0.93 L 11/27/2023 9:07 AM CDT [facility] FEV1/FVC 40.41 % 11/27/2023 9:07 AM CDT [facility] KAS67-45% 0.24 L/s 11/27/2023 9:07 AM CDT [facility] PEF PRE 3.25 L/s 11/27/2023 9:07 AM CDT [facility] PIF PRE 3.41 L/s 11/27/2023 9:07 AM CDT [facility] FEF 50 % FIF 50 PRE 9.41 % 11/27/2023 9:07 AM CDT [facility] FET PRE 15.28 sec 11/27/2023 9:07 AM CDT [facility] DLCO 8.51 ml/(min*mm Hg) 11/27/2023 9:07 AM CDT [facility] VA 3.49 L 11/27/2023 9:07 AM CDT [facility] PulseRest 77.00 1/min 11/27/2023 9:07 AM CDT [facility] C8KhfZdqp 94.00 % 11/27/2023 9:07 AM CDT [facility] PulseExer 104.00 1/min 11/27/2023 9:07 AM CDT [facility] EXER TIME 1.00 min 11/27/2023 9:07 AM CDT [facility] STEP HEIGHT PRE 9.00 Inch 11/27/2023 9:07 AM CDT [facility] TLC 4.98 L 11/27/2023 9:07 AM CDT [facility] FRCPLETH PROVBASE 3.41 L 11/27/2023 9:07 AM CDT [facility] RV 2.53 L 11/27/2023 9:07 AM CDT [facility] RV % TLC PRE 50.74 % 11/27/2023 9:07 AM CDT [facility] 11/27/2023 7:56 AM CDT Impressions [facility] - 11/27/2023 9:07 AM CDT Abnormal. Moderate [...] PFT ORDER KEYLA Final Result [facility] NA * PUL Exhaled Nitric Oxide (11/27/2023 7:43 AM CDT) Exhaled NO Oral 9 ONBASE Parts per billion (ULN) 39 ONBASE ENOComment Patient uses Albuterol ONBASE Anum Jacobson APRN, C.N.P., D.N.P. PFT ORDER [...] CDT Dilcia Ingram D.O. LAB BLOOD ADD-ON Final Re sult [facility] [address] [place] [address], [facility] DTL [facility] [address] [place] [address] * CT Chest without IV Contrast (05/22/2023 [...] calcification. Perla Lorenz M.D. [place] [facility] PROCEDURES Final Re sult * Basic Metabolic Panel (04/26/2023 10:43 AM CUSTOM DRESSMAKER) Potassium, S 4.9 3.6 - 5.2 mmol/L 04/26/2023 12:05 PM CUSTOM DRESSMAKER DTL Sodium, S 137 135 - 145 mmol/L 04/26/2023 12:05 PM CUSTOM DRESSMAKER DTL Chloride, S 99 98 - 107 mmol/L 04/26/2023 12:05 PM CUSTOM DRESSMAKER DTL Bicarbonate, S 28 22 - 29 mmol/L 04/26/2023 12:05 PM CUSTOM DRESSMAKER DTL Anion Gap 10 7 - 15 04/26/2023 12:05 PM CUSTOM DRESSMAKER DTL BUN (Blood Urea Nitrogen), S 19 6 - 21 mg/dL 04/26/2023 12:05 PM CUSTOM DRESSMAKER DTL Creatinine 0.63 0.59 - 1.04 mg/dL 04/26/2023 12:05 PM CUSTOM DRESSMAKER DTL Estimated GFR (eGFR) >90 >=60 mL/min/BSA 04/26/2023 12:05 PM CUSTOM DRESSMAKER DTL Comment: Estimated GFR calculated using the 2020 CKD_EPI creatinine equation. Calcium, Total, S 9.3 8.8 - 10.2 mg/dL 04/26/2023 12:05 PM CUSTOM DRESSMAKER DTL Glucose, S 95 70 - 140 mg/dL 04/26/2023 12:05 PM CUSTOM DRESSMAKER DTL Blood (Blood, Venous) 04/26/2023 10:43 AM CUSTOM DRESSMAKER 04/26/2023 11:31 AM CUSTOM DRESSMAKER Krupa Bates M.D. LAB BLOOD ADD-ON Final Result [facility] [address] [place] [address], [place] [facility] [address] [place] [address] from Last 3 Months or Most Recently Relevant to Health Maintenance Insurance [employer] Advance Directives For more information, please contact: [phone] * Full Code (Latest Code Status on File) Date Activated Date Inactivated Comments 04/24/2023 5:03 AM 04/26/2023 3:35 PM Question Answer Comments Full Code: Discussed * Full Code Date Activated Date Inactivated Comments 01/04/2019 11:20 PM 01/05/2019 7:41 PM Question Answer Comments Full Code: Discussed Care Teams Instrumentation Technician Relationship Specialty Start Date End Date Elsewhere, Pcp PCP - General Internal Medicine 04/24/23
--- OUTSIDE RECORDS SUMMARY | 2024-01-30 10:52 | XMS_ITS | Encounter Summary ---
Author Organization [facility] Address [address] [place] [address] Care Team Providers Care Medical Representative Name Role Phone Elsewhere, Pcp Primary Care Provider Unavailabl e Encounter Details Date Type Department Care Team (Latest Contact Info) Description 11/27/2023 11:02 AM CDT - 11/27/2023 11:59 PM CDT Hospital Encounter Department of Laboratory Medicine and Pathology, [facility], in [place], [place] [address] [place] [address] Anum Jacobson, AMEENA, C.N.P., D.N.P. [address] [place] [phone] Shortness Of Breath; Edema Lower Extremity; Obesity Body Mass Index 30-39.9 Adult; Fatigue Discharge Disposition: Home or Self Care Social History Tobacco Use Types Packs/Day Years Used Date Smoking Tobacco: Former Cigarettes 1 49.1 0 03/14/1974 - 04/24/2023 Smokeless Tobacco: Never Alcohol Use Standard Drinks/Week Comments Yes 0 (1 standard drink = 0.6 oz pur e alcohol) Very very rarely [facility] Utilities Answer Date Recorded In [...] How often do you attend buddhist or anabaptist serv ices? Never 07/20/2019 Active [...] Recorded PHQ-2 Score 2 04/29/2019 [facility] of Occupat ional Health - Occupational Stress [...] your living situation today? I have a [facility] place to live 05/17/2023 Education Answer Date Recorded What is the highest level of school you have completed or the highest degree you have received? Associate degree: academic program 02/12/2019 Comments No Sex and Gender Information Value Date Recorded Sex Assigned at Female 05/07/2023 12:13 PM FLOOR WORKER TRANSFER BAY Legal Sex Female 3:09 AM FLOOR WORKER TRANSFER BAY Gender Identity Female 07/20/2019 7:51 PM CDT [...] st Contact Info) Description 02/19/2024 2:30 PM FLOOR WORKER TRANSFER BAY Clinical Communication Virtual Review in [place], [place] [address] [place] [address] 02/20/2024 9:00 AM FLOOR WORKER TRANSFER BAY Comprehensive Visit Division of Endocrinology in [place], [place] [address] [place] [phone] Robin Valenzuela M.D., M.P.H. [address] [place] [phone] 02/20/2024 10:00 AM FLOOR WORKER TRANSFER BAY Clinical Support Department of Nutrition and Diabetes Education in [place], [place] [address] [place] [phone] Anum Jacobson, AMEENA, C.N.P., D.N.P. [address] [place] [phone] Flo Joyner M.S., RDN, LD [address] [place] [phone] 02/29/2024 11:30 AM FLOOR WORKER TRANSFER BAY Office Visit [facility] in [place], [place] [address] [place] [phone] Baylee Pike M.D. [address] [place] [phone] documented as of this encounter Procedures Procedure Name Priority Date/Time Associated Diagnosis Comments THYROID FUNCTION CASCADE, S Routine 11/27/2023 11:12 AM CDT Shortness Of Breath Obesity Body Mass Index 30-39.9 Adult Fatigue D-DIMER, P Routine 11/27/2023 11:11 AM CDT Shortness Of Breath Edema Lower Extremity documented in this encounter Results * Thyroid Function [place] (11/27/2023 11:12 AM CDT) TSH, Sensitive 1.8 0.3 - 4.2 mIU/L 11/27/2023 12:14 PM CDT DTL Blood (Blood, Venous) 11/27/2023 11:12 AM CDT 11/27/2023 11:49 AM CDT Anum Jacobson APRN, C.N.P., D.N.P. LAB BLOOD ADD-ON Final Result [facility] [address] [place] [address], [facility] [address] [place] [address] * D-Dimer (11/27/2023 11:11 AM CDT) D-Dimer, [...] C.N.P., D.N.P. LAB BLOOD ADD-ON Final Result [facility] [address] [place] [address], [facility] [address] [place] [address] documented in this encounter Visit Diagnoses Diagnosis Shortness Of Breath Edema Lower Extremity Obesity Body Mass Index 30-39.9 Adult Fatigue documented in this encounter Additional Health Concerns Assessment Noted Time PHQ-9 Depression Total Score: 6 04/29/19 20 12:40 PM FLOOR WORKER TRANSFER BAY documented as of this encounter Care Teams Medical Representative Relationship Specialty Start Date End Date Elsewhere, Pcp PCP - General Internal Medicine 04/24/23 documented as of this encounter
--- OUTSIDE RECORDS SUMMARY | 2024-01-30 10:52 | XMS_ITS | Encounter Summary ---
Author Organization [facility] Address [address] [place] [address] Care Team Providers Care Director Of Communications Name Role Phone Elsewhere, Pcp Primary Care Provider Unavailabl e Encounter Details Date Type Department Care Team (Late st Contact Info) Description 12/26/2023 Orders Only Division of Pulmonary Medicine in [place], [place] [address] [place] [phone] Anum Jacobson, BULK TANK DRIVER, C.N.P., D.N.P. [address] [place] [phone] Chronic Obstructive Pulmonary Disease Exacerbation (HCC) (Primary Dx) Social History Tobacco Use Types Packs/Day Years Used Date Smoking Tobacco: Former Cigarettes 1 49.1 0 03/14/1974 - 04/24/2023 Smokeless Tobacco: Never Alcohol Use Standard Drinks/Week Comments Yes 0 (1 standard drink = 0.6 oz pur e alcohol) Very very rarely [facility] Utilities Answer Date Recorded In the [...] Never 07/20/2019 How often do you attend oriental orthodox or hoahaoism serv ices? Never 07/20/2019 Active Member of [...] Answer Date Recorded PHQ-2 Score 2 04/29/2019 [facility] of Occupat ional Health - Occupational [...] your living situation today? I have a [facility] place to live 05/17/2023 Education Answer Date Recorded What is the highest level of school you have completed or the highest degree you have received? Associate degree: academic program 02/12/2019 Comments No Sex and Gender Information Value Date Recorded Sex Assigned at Female 05/07/2023 12:13 PM CONFIGURATION MANAGEMENT ANALYST Legal Sex Female 3:09 AM CONFIGURATION MANAGEMENT ANALYST Gender Identity Female 07/20/2019 7:51 PM CDT Sexual Orientation Straight 07/20/2019 7: 51 PM CDT documented as of this encounter Plan of Treatment Upcoming Encounters Date Type Department Care Team (Late st Contact Info) Description 02/19/2024 2:30 PM CONFIGURATION MANAGEMENT ANALYST Clinical Communication Virtual Review in [place], [place] [address] [place] [phone] 02/20/2024 9:00 AM CONFIGURATION MANAGEMENT ANALYST Comprehensive Visit Division of Endocrinology in [place], [place] [address] [place] [phone] Robin Valenzuela M.D., M.P.H. [address] [place] [phone] 02/20/2024 10:00 AM CONFIGURATION MANAGEMENT ANALYST Clinical Support Department of Nutrition and Diabetes Education in [place], [place] [address] [place] [phone] Anum Jacobson, AMEENA, C.N.P., D.N.P. [address] [place] [phone] Flo Joyner M.S., RDN, LD [address] [place] [phone] 02/29/2024 11:30 AM CONFIGURATION MANAGEMENT ANALYST Office Visit [facility] in [place], [place] [address] [place] [phone] Baylee Pike M.D. [address] [place] [phone] documented as of this encounter Visit Diagnoses Diagnosis Chronic Obstructive Pulmonary Disease Exacerbation (HCC)- Primary documented in this encounter Additional Health Concerns Assessment Noted Time PHQ-9 Depression Total Score: 6 04/29/19 20 12:40 PM CONFIGURATION MANAGEMENT ANALYST documented as of this encounter Care Teams Director Of Communications Relationship Specialty Start Date End Date Elsewhere, Pcp PCP - General Internal Medicine 04/24/23 documented as of this encounter
--- OUTSIDE RECORDS SUMMARY | 2024-01-30 10:52 | XMS_ITS ---
Author Organization [facility] Address [address] [place] [address] Care Team Providers Care Doughnut Fryer Name Role Phone Unavailable Unavailable Unavailable Surgery Details Not on file Complications Check Surgery Details section. Procedure Estimated Blood Loss Check Surgery Details section. Procedure Findings Check Surgery Details section. Procedure Specimens Taken Check Surgery Details section.
--- OUTSIDE RECORDS SUMMARY | 2024-01-30 10:53 | XMS_ITS | Clinical Summary ---
Author Organization [employer] [facility] Address [place], [place] [address] Care Team Providers Care Firer Electric Locomotive Name Role Phone Rupali Tate MD Primary Care Provider [phone] Allergies Active Allergy Reactions Criticality Noted Date [...] unspecified vessel or lesion type, unspecified whether chefornak or transplanted heart Take 1 tablet by mouth once daily. 90 tablet 3 01/02/2019 Active Active Problems No known active problems Social History Tobacco Use Types Packs/Day Years Used Date Smoking Tobacco: Every Day Cigarettes 0.5 48.1 Started: 01/03/1976 Smokeless Tobacco: Never Tobacco Cessation:Ready [...] 102 01/02/2019 12:51 PM CDT Temperature 36.8 C (98.3 F) 02/18/2016 10:05 AM CELL TECHNICIAN Respiratory Rate - - Oxygen Saturation 95% [...] 18+ 01/03/2020 01/02/2019, 02/18/2016 COVID-19 vaccine series (2023- season) 2023 Influenza for age 50-64 11/05/2023 Pneumococcal series for age 6-64 Aged Out No longer eligible b ased on patient's age to complete this topic Procedures Procedure Name Priority Date/Time Associated Diagnosis Comments FOREIGN BROADCAST SPECIALIST THIN PREP PAP SCREEN IMAGED Routine 06/20/2016 5:30 PM CDT from Last 3 Months or Most Recently Relevant to Health Maintenance Results * FOREIGN BROADCAST SPECIALIST THIN PREP PAP SCREEN IMAGED (06/20/2016 5:30 PM CDT) Case Report Gynecologic Cytology Report Case: [id number] Authorizing Provider: José Luis, Doctor Collected: 06/20/2016 1730 First Screen: Perlita Mann Received: 06/22/2016 1226 Specimen: FOREIGN BROADCAST SPECIALIST ThinPrep Vial Screening, Cervical/Vaginal 06/30/2016 11:31 AM CDT [facility] INTERPRETATION/ RESULT NEGATIVE FOR INTRAEPITHELIAL LESION OR MALIGNANCY (NIL) (none) 06/30/2016 11:31 AM CDT [facility] IMEN ADEQUACY Satisfactory for evaluation Endocervical component present 06/30/2016 11:31 AM CDT [facility] HPV REQUEST HPV and PAP 06/30/2016 11:31 AM CDT [facility] Last Pap Date 02/20/2012 06/30/2016 11:31 AM CDT [facility] Last Pap Result NIL 7 11:31 AM CDT [facility] Menstrual Status 06/30/2016 11:31 AM CDT [facility] Comment:N/A Automated Review Successful 06/30/2016 11:31 AM CDT [facility] Comment:Specimen processed s uccessfully by automated station installer and repairer device, ThinPrep Imaging System, [employer] ANCILLARY TESTING FOREIGN BROADCAST SPECIALIST HPV Ordered, Please see separate report 06/30/2016 11:31 AM T [facility] Note The pap test is a screening technique, not a diagnostic procedure. It is used primarily to screen for squamous cancers and precursor lesions. Published studies have shown that it is subject to both false negative and false positive results. The pap test should not be used as the sole means to diagnose or exclude pre-malignant and malignant lesions. Interpreted at [facility] ([facility], [facility], [facility], [facility], [facility], [facility], [facility]) 06/30/2016 11:31 AM CDT [facility] Other (Cervical/Vagina l) 06/20/2016 5:30 PM CDT 06/22/2016 12:26 PM CDT Doctor Unknown PATHOLOGY/CYTOLOGY [facility] [address] [place] [address], from Last 3 Months or Most Recently Relevant to Health Maintenance Care Teams Firer Electric Locomotive Relationship Specialty Start Date End Date Rupali Tate MD [address] [place] [phone] PCP - General Internal Medicine 02/22/10
--- OUTSIDE RECORDS SUMMARY | 2024-01-30 10:53 | XMS_ITS | Encounter Summary ---
Author Organization [facility] Address [address] [place] [address] Care Team Providers Care Florist'S Decorator Name Role Phone Elsewhere, Pcp Primary Care Provider Unavailabl e Reason for Visit * Reason Onset Date Comments Nicotine Dependence 11/02/2023 Encounter Details Date Type Department Care Team (Latest Contact Info) Description 11/02/2023 Clinical Communication Department of Nicotine Dependence, [facility], in [place], [place] [address] [place] [address] Dino Castillo M.A. Nicotine Dependence Social History Tobacco Use Types Packs/Day Years Used Date Smoking Tobacco: Former Cigarettes 1 49.1 0 03/14/1974 - 04/24/2023 Smokeless Tobacco: Never Alcohol Use Standard Drinks/Week Comments Yes 0 (1 standard drink = 0.6 oz pur e alcohol) Very very rarely [facility] Utilities Answer Date Recorded [...] Never 07/20/2019 How often do you attend sikh or mosque serv ices? Never 07/20/2019 Active [...] Answer Date Recorded PHQ-2 Score 2 04/29/2019 [facility] of Occupat ional Health - Occupational [...] your living situation today? I have a [facility] place to live 05/17/2023 Education Answer Date Recorded What is the highest level of school you have completed or the highest degree you have received? Associate degree: academic program 02/12/2019 Comments No Sex and Gender Information Value Date Recorded Sex Assigned at Female 05/07/2023 12:13 PM MANAGEMENT SERVICES TECHNICIAN Legal Sex Female 3:09 AM MANAGEMENT SERVICES TECHNICIAN Gender Identity Female 07/20/2019 7:51 PM CDT Sexual Orientation Straight 07/20/2019 7: 51 PM CDT documented as of this encounter Plan of Treatment Upcoming Encounters Date Type Department Care Team (Late st Contact Info) Description 02/19/2024 2:30 PM MANAGEMENT SERVICES TECHNICIAN Clinical Communication Virtual Review in [place], [place] [address] [place] [address] 02/20/2024 9:00 AM MANAGEMENT SERVICES TECHNICIAN Comprehensive Visit Division of Endocrinology in [place], [place] [address] [place] [phone] Robin Valenzuela M.D., M.P.H. [address] [place] [phone] 02/20/2024 10:00 AM MANAGEMENT SERVICES TECHNICIAN Clinical Support Department of Nutrition and Diabetes Education in [place], [place] [address] [place] [phone] Anum Jacobson APRN, C.N.P., D.N.P. [address] [place] [phone] Flo Joyner M.S., RDN, LD [address] [place] [phone] 02/29/2024 11:30 AM MANAGEMENT SERVICES TECHNICIAN Office Visit [facility] in [place], [place] [address] [place] [phone] Baylee Pike M.D. [address] [place] [address] documented as of this encounter Visit Diagnoses Not on filedocumented in this encounter Additional Health Concerns Assessment Noted Time PHQ-9 Depression Total Score: 6 04/29/19 20 12:40 PM MANAGEMENT SERVICES TECHNICIAN documented as of this encounter Care Teams Florist'S Decorator Relationship Specialty Start Date End Date Elsewhere, Pcp PCP - General Internal Medicine 04/24/23 documented as of this encounter
--- OUTSIDE RECORDS SUMMARY | 2024-01-30 10:53 | XMS_ITS | Encounter Summary ---
Author Organization [facility] Address [address] [place] [address] Care Team Providers Care Occupational Health And Safety Officer Name Role Phone Elsewhere, Pcp Primary Care Provider Unavailabl e Reason for Referral * Outpatient (Routine) - Authorized Specialty Diagnoses / Procedures Referred By Carey escobar Referred To Contact Sleep Medicine Baylee Pike M.D. 200 [place] [address] Phone: tel: fax: [facility] Referral ID Status Reason Start Date Expiration Date V isits Requested Visits Authorized [id number] Authorized 10/31/2023 05/01/2025 1 1 Scheduling Instructions Psg results * Outpatient (Routine) - Closed Specialty Diagnoses / Procedures Referred By Carey escobar Referred To Contact Diagnoses Sleep Disorder Sleep Related Hypoxemia Procedures Polysomnography (PSG): Split Night; CPAP, Bilevel S Mode, Bilevel S-T Mode Baylee Pike M.D. 200 [place] [address] Phone: tel: fax: [facility] Referral ID Status Reason Start Date Expiration Date Visits Re quested Visits Authorized [id number] Closed 10/31/2023 10/30/2024 1 1 Reason for Visit * Outpatient (Routine) - Closed Specialty Diagnoses / Procedures Referred By Carey escobar Referred To Contact Sleep Medicine Diagnoses Chronic Obstructive Pulmonary Disease (HCC) Snoring Anum Jacobson, AMEENA C.N.P., D.N.P. [address] [place] [phone] Phone: tel: fax: [facility] Referral ID Status Reason Start Date Expiration Date V isits Requested Visits Authorized [id number] Closed Specialty Services Required 05/23/2023 11/21/2024 1 1 Encounter Details Date Type Department Care Team (Latest Contact Info) Description 10/31/2023 2:30 PM CDT Comprehensive Visit [facility] in [place], [place] [address] [place] [phone] Baylee Pike M.D. [address] [place] [address] Sleep Disorder (Primary Dx); Chronic Obstructive Pulmonary Disease (HCC); Snoring; Sleep Related Hypoxemia Social History Tobacco Use Types Packs/Day Years Used Date Smoking Tobacco: Former Cigarettes 1 49.1 0 03/14/1974 - 04/24/2023 Smokeless Tobacco: Never Alcohol Use Standard Drinks/Week Comments Yes 0 (1 standard drink = 0.6 oz pur e alcohol) Very very rarely [facility] Utilities Answer Date Recorded In the past 12 months has [employer], gas, oil, or water [employer] threatened to shut off services in your [...] Never 07/20/2019 How often do you attend pentecostal or christian serv ices? Never 07/20/2019 Active Member of [...] Answer Date Recorded PHQ-2 Score 2 04/29/2019 [facility] of Occupat ional Health - Occupational Stress [...] your living situation today? I have a [facility] place to live 05/17/2023 Education Answer Date Recorded What is the highest level of school you have completed or the highest degree you have received? Associate degree: academic program 02/12/2019 Comments No Sex and Gender Information Value Date Recorded Sex Assigned at Female 05/07/2023 12:13 PM FORESTRY FIRE AID Legal Sex Female 3:09 AM FORESTRY FIRE AID Gender Identity Female 07/20/2019 7:51 PM CDT Sexual Orientation Straight 07/20/2019 7: 51 PM CDT documented as of this encounter Last Filed Vital Signs Vital Sign Reading Time Taken Comments Blood Pressure 137/75 10/31/2023 2:20 PM CDT Pulse 98 10/31/2023 2:20 PM CDT Temperature - - Respiratory Rate - - Oxygen Saturation - - Inhaled Oxygen Concentration - - Weight 91 kg (200 lb 9.9 oz) 10/31/2023 2:20 PM CDT Height 155 cm (5' 1.02) 10/31/2023 2:20 PM CDT Body Mass Index 37.88 10/31/2023 2:20 PM CDT documented in this encounter Consult Notes * Baylee Pike M.D. - 10/31/2023 2:30 PM CDT SUBJECTIVE REASON FOR CONSULT Abnormal overnight oximetry, COPD, snoring HISTORY OF PRESENT ILLNESS Ms. Allison is a pleasant 62 y.o. female with a past medical history significant for COPD gold to stage E, hypertension, coronary artery disease, right CHECK TOTALER stroke in 2019, and prior tobacco use (quit earlier this year) who is seen by request of Anum B Banzon, ADVERTISING AGENT, C.N.P., D.N.P. for abnormal o vernight oximetry in the setting of snoring and COPD. The history was obtained from the patient. 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 She works 3 days per week. Her primary problem is excessive daytime sleepiness, which has been going on for 5 years but she isn't sure if this is because of her schedule or if there is something else going on. Overall the sleepiness is rather mild and it isn't significantly impacting her well-being She goes to bed at 10 or 11 a.m. and wakes up at 4:00 p.m.. On non workdays she goes to bed at 10:00 p.m. and wakes up at 8:00 a.m.. She typically doesn't have any difficulty falling asleep but it's sometimes hard to stay asleep. Sheflips back to days when she is off because she takes care of her mom with dementia who lives with her. She is sometimes drowsy while driving particularly at the end of a stretch of shifts. She is notsure about witnessed apneas but her significant other has told her that she snores. She denies morning headache, restless legs symptoms, and parasomnia. The insomnia severity index is 9 with mild problems falling asleep staying asleep and waking up too early. The Amalia Sleepiness scale score is 5. I personally reviewed her overnight oximetry tracing dated May 22, 2023. It shows a mildly reduced baseline oxygen saturation of 89% with mild superimposed oscillatory waveform variability potentially suggesting the additional presence of mild sleep disordered breathing. The overnight oximetry was performed approximately 2 weeks after she was hospitalized for pneumonia. She was discharged on supplemental oxygen but she did have an oxygen titration the day after the overnight oximetry that suggested supplemental oxygen was not necessary so it is unknown whether she was fully recovered by that time or not. Caffeine: 2 16 oz bottles of pepsi throughout the day Smokin pack year history, quit earlier this year Alcohol: Rare Drugs: None Family history of sleep disorders: Mom has sleep apnea OBJECTIVE PHYSICAL EXAMINATION Blood Pressure: 137/75 (10/31/2023 2:20 PM) Pulse Rate: 98 (10/31/2023 2:20 PM) BMI (Calculated): 37.9 kg/m?? (10/31/2023 2:20 PM) Height: 155 cm (10/31/2023 2:20 PM) Weight: 91 kg (10/31/2023 2:20 PM) General Multi-System Examination (GME) Constitutional: General appearance no acute distress. Eyes: Conjunctivae and lids normal. Pupils and irises normal. Ears, Nose Mouth and Throat: Oropharynx demonstrates general AP and lateral crowding. Jaw position is Montez 3. External inspection of ears and nose normal. Lips, teeth, and gums normal. Heart: Auscultation of heart normal. No ankle edema. No carotid artery bruits. Lungs: Respiratory effort normal. Auscultation of lungs normal. Musculoskeletal: Gait normal. Digits and nails normal. Mental: Judgement and insight normal. Orientation normal. Memory normal. Mood normal. ASSESSMENT / PLAN #1 Sleep related hypoxemia vs hypoventilation #2 Possible mild RACH I recommended doing an in-lab polysomnogram due to her history of COPD and stroke. I discussed thisprocedure with her in detail. We will plan on doing a split night study with transcutaneous CO2 monitoring with the option to switch to BiPAP S for hypoxemia or hypercapnia and BiPAP ST for centrals.I will meet with her after the sleep study to discuss results. Baylee Pike MD [facility] Pulmonary/Sleep Medicine #[id number] 45 minutes were spent in the care and coordination of this patient visit. documented in this encounter Plan of Treatment Upcoming Encounters Date Type Department Care Team (Late st Contact Info) Description 02/19/2024 2:30 PM FORESTRY FIRE AID Clinical Communication Virtual Review in [place], [place] 200 [place] [address] 02/20/2024 9:00 AM FORESTRY FIRE AID Comprehensive Visit Division of Endocrinology in [address] [phone] Robin Valenzuela M.D., M.P.H. [address] [place] [phone] 02/20/2024 10:00 AM FORESTRY FIRE AID Clinical Support Department of Nutrition and Diabetes Education in [place], [place] [address] [place] [address] Anum Jacobson, AMEENA, C.N.P., D.N.P. [address] [place] [phone] Flo Joyner M.S., RDN, LD [address] [place] [phone] 02/29/2024 11:30 AM FORESTRY FIRE AID Office Visit [facility] in [place], [place] [address] [place] [phone] Baylee Pike M.D. [address] [place] [phone] Pending Results Name Type Priority Associated Diagnoses Date /Time Polysomnography (PSG): Split Night; CPAP, Bilevel S Mode, Bilevel S-T Mode Sleep Center Routine Sleep Disorder Sleep Related Hypoxemia 01/17/2024 3:31 AM FORESTRY FIRE AID Scheduled Orders Name Type Priority Associated Diagnoses Orde r Schedule Polysomnography (PSG): Split Night; CPAP, Bilevel S Mode, Bilevel S-T Mode Sleep Center Routine Sleep Disorder Sleep Related Hypoxemia Expected: 10/31/2023, Expires: 01/30/2025 Scheduled Referrals Name Type Priority Associated Diagnoses Orde r Schedule Sleep Medicine office visit (clinic) Outpatient Referral Routine Expected: 10/31/2023, Expires: 01/30/2025 documented as of this encounter Visit Diagnoses Diagnosis Sleep Disorder- Primary Chronic Obstructive Pulmonary Disease (HCC) Snoring Sleep Related Hypoxemia documented in this encounter Additional Health Concerns Assessment Noted Time PHQ-9 Depression Total Score: 6 04/29/19 20 12:40 PM FORESTRY FIRE AID documented as of this encounter Care Teams Occupational Health And Safety Officer Relationship Specialty Start Date End Date Elsewhere, Pcp PCP - General Internal Medicine 04/24/23 documented as of this encounter
--- OUTSIDE RECORDS SUMMARY | 2024-01-30 10:53 | XMS_ITS | Encounter Summary ---
Author Organization [facility] Address [address] [place] [phone] Care Team Providers Care Chucking And Sawing Machine Operator Name Role Phone Elsewhere, Pcp Primary Care Provider Unavailabl e Reason for Visit * Reason Onset Date Comments Pre-visit Intake 11/24/2023 * Appointment Request (Routine) - Authorized Specialty Diagnoses / Procedures Referred By Carey t Referred To Contact Pulmonary Medicine Anum Jacobson, AMEENA, C.N.P., D.N.P. [address] [place] [phone] Phone: tel: fax: Referral ID Status Reason Start Date Expiration Date V isits Requested Visits Authorized [id number] Authorized 08/31/2023 08/30/2024 1 1 Encounter Details Date Type Department Care Team (Latest Contact Info) Description 11/24/2023 1:30 PM CDT Clinical Communication Virtual Review in [place], [place] 200 [place] [address] Pre-visit Intake Social History Tobacco Use Types Packs/Day Years Used Date Smoking Tobacco: Former Cigarettes 1 49.1 0 03/14/1974 - 04/24/2023 Smokeless Tobacco: Never Tobacco Cessation:Counseling Given: Not Answered Alcohol Use Standard Drinks/Week Comments Yes 0 (1 standard drink = 0.6 oz pur e alcohol) Very very rarely [facility] Utilities Answer Date Recorded In the past 12 months has th e electric, gas, oil, or water [employer] threatened to shut off services in your [...] Never 07/20/2019 How often do you attend jewish or adventism serv ices? Never 07/20/2019 Active [...] Answer Date Recorded PHQ-2 Score 2 04/29/2019 [facility] of Occupat ional Health - Occupational Stress [...] Sex Assigned at Female 05/07/2023 12:13 PM FARM LOAN INSPECTOR Legal Sex Female 3:09 AM FARM LOAN INSPECTOR Gender Identity Female 07/20/2019 7:51 PM CDT Sexual Orientation Straight 07/20/2019 7: 51 PM CDT documented as of this encounter Plan of Treatment Upcoming Encounters Date Type Department Care Team (Late st Contact Info) Description 02/19/2024 2:30 PM FARM LOAN INSPECTOR Clinical Communication Virtual Review in [place], [place] [address] [place] [address] 02/20/2024 9:00 AM FARM LOAN INSPECTOR Comprehensive Visit Division of Endocrinology in [place], [place] [address] [place] [phone] Robin Valenzuela M.D., M.P.H. [address] [place] [phone] 02/20/2024 10:00 AM FARM LOAN INSPECTOR Clinical Support Department of Nutrition and Diabetes Education in [place], [place] [address] [place] [phone] Anum Jacobson APRN, C.N.P., D.N.P. [address] [place] [phone] Flo Joyner M.S., RDN, LD [address] [place] [phone] 02/29/2024 11:30 AM FARM LOAN INSPECTOR Office Visit [facility] in [place], [place] [address] [place] [address] Baylee Pike M.D. [address] [place] [phone] documented as of this encounter Visit Diagnoses Not on filedocumented in this encounter Additional Health Concerns Assessment Noted Time PHQ-9 Depression Total Score: 6 04/29/19 20 12:40 PM FARM LOAN INSPECTOR documented as of this encounter Care Teams Chucking And Sawing Machine Operator Relationship Specialty Start Date End Date Elsewhere, Pcp PCP - General Internal Medicine 04/24/23 documented as of this encounter
--- OUTSIDE RECORDS SUMMARY | 2024-01-30 10:53 | XMS_ITS | Encounter Summary ---
Author Organization [facility] Address [address] [place] [address] Care Team Providers Care Press Operator Name Role Phone Elsewhere, Pcp Primary Care Provider Unavailabl e Reason for Referral * Outpatient (Routine) - Authorized Specialty Diagnoses / Procedures Referred By Contac t Referred To Contact Pulmonary Medicine Diagnoses Chronic Obstructive Pulmonary Disease (HCC) Anum Jacobson APRN, C.N.P., D.N.P. [address] [place] [address] Phone: tel: fax: [facility] Referral ID Status Reason Start Date Expiration Date V isits Requested Visits Authorized [id number] Authorized 11/27/2023 05/28/2025 1 1 * Outpatient (Routine) - Authorized Specialty Diagnoses / Procedures Referred By Contac t Referred To Contact Pulmonary Medicine Diagnoses Smoking Tobacco Use Personal History Anum Jacobson APRN, C.N.P., D.N.P. [address] [place] [address] Phone: tel: fax: [facility] Referral ID Status Reason Start Date Expiration Date V isits Requested Visits Authorized [id number] Authorized 11/27/2023 05/28/2025 1 1 * Outpatient (Routine) - Authorized Specialty Diagnoses / Procedures Referred By Contac t Referred To Contact Endocrinology Diagnoses Obesity Body Mass Index 30-39.9 Adult Anum Jacobson APRN C.N.P., D.N.P. [address] [place] [phone] Phone: tel: fax: [facility] Referral ID Status Reason Start Date Expiration Date V isits Requested Visits Authorized [id number] Authorized 11/27/2023 05/28/2025 1 1 * Outpatient (Routine) - Authorized Specialty Diagnoses / Procedures Referred By Contac t Referred To Contact Nutrition Diagnoses Obesity Body Mass Index 30-39.9 Adult Anum Jacobson APRN C.N.P., D.N.P. [address] [place] [phone] Phone: tel: fax: [facility] Referral ID Status Reason Start Date Expiration Date V isits Requested Visits Authorized [id number] Authorized 11/27/2023 05/28/2025 1 1 Reason for Visit * Outpatient (Routine) - Closed Specialty Diagnoses / Procedures Referred By Contac t Referred To Contact Pulmonary Medicine Anum Jacobson APRN, C.N.P., D.N.P. [address] [place] [phone] Phone: tel: fax: [facility] Referral ID Status Reason Start Date Expiration Date Visits Re quested Visits Authorized [id number] Closed 05/23/2023 11/21/2024 1 1 Encounter Details Date Type Department Care Team (Late st Contact Info) Description 11/27/2023 10:00 AM CDT Office Visit Division of Pulmonary Medicine in [place], [place] [address] [place] [address] Anum Jacobson APRN, C.N.P., D.N.P. [address] [place] [address] Chronic Obstructive Pulmonary Disease (HCC) (Primary Dx); Obesity Body Mass Index 30-39.9 Adult; Smoking Tobacco Use Personal History; Shortness Of Breath; Edema Lower Extremity; Fatigue Social History Tobacco Use Types Packs/Day Years Used Date Smoking Tobacco: Former Cigarettes 1 49.1 0 03/14/1974 - 04/24/2023 Smokeless Tobacco: Never Alcohol Use Standard Drinks/Week Comments Yes 0 (1 standard drink = 0.6 oz pur e alcohol) Very very rarely [facility] Utilities Answer Date Recorded In the past 12 months has e electric, gas, oil, or water [employer] threatened to shut off services in your [...] Never 07/20/2019 How often do you attend scientologist or yazidism serv ices? Never 07/20/2019 Active Member of [...] Date Recorded PHQ-2 Score 2 04/29/2019 [facility] of Occupat ional Health - Occupational Stress [...] Sex Assigned at Female 05/07/2023 12:13 PM TWISTING MACHINE OPERATOR Legal Sex Female 3:09 AM TWISTING MACHINE OPERATOR Gender Identity Female 07/20/2019 7:51 PM CDT Sexual Orientation Straight 07/20/2019 7: 51 PM CDT documented as of this encounter Last Filed Vital Signs Vital Sign Reading Time Taken Comments Blood Pressure - - Pulse - - Temperature - - Respiratory Rate - - Oxygen Saturation 93% 11/27/2023 9:49 AM CDT Inhaled Oxygen Concentration - - Weight - - Height - - Body Mass Index - - documented in this encounter Patient Instructions * Patient Instructions* Anum Jacobson APRN C.N.P., D.N.P. - 11/27/2023 10:00 AM CDT - Continue to use your albuterol inhaler as needed. I will send a prescription for Bevespi 2 puffs twice a day. If this medication is too expensive check to see if you would be a candidate for [place] Patient Assistance Program ([email or web address]). - Lets check your thyroid and d-dimer lab values. - Referral to the weight management clinic. - Low dose CT chest yearly as part of the lung cancer screening program - Follow up in 6 months documented in this encounter Progress Notes * Anum Jacobson APRN, C.N.P., HeNTraci. - 11/27/2023 10:00 AM CDT SUBJECTIVE CHIEF COMPLAINT / REASON FOR VISIT COPD REFERRAL SOURCE: Anum Jacobson APRN, C.N.P., Leila HISTORY OF PRESENT ILLNESS Genevieve Allison is a 62 y.o. female who presents for follow up of COPD. She is a former smokerwho quit earlier this year. She has a 47 pack-year smoking history. 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 She was last seen in the Pulmonary Department in May of 2023 following a hospitalization for acute hypoxemic respiratory failure in the setting of a presumed COPD exacerbation and community-acquired pneumonia. She was treated with antibiotics and steroids and discharged home on 1 L of oxygen withactivity and 2 L with sleep. She was discharged on Stiolto Respimat, unfortunately due to the cost of the inhaler, she was unable to pickle cutter the medication. She underwent pulmonary function testing prior to our visit that showed moderate obstruction with air trapping and a large improvement in flows after bronchodilator administration using the FVC criteria. Her diffusing capacity was moderately reduced. Due to the cost of the inhaler, we provided her with a prescription for formoterol and you Pulmonary, unfortunately those medications were too expensive. She was also provided a prescription for Anoro Ellipta, in which she reports she was able to afford 1 month, however when she went to renew the medication the yoo had increased. She was treated for a presumed COPD exacerbation with a 5day course of prednisone as an outpatient. At that time, she reported worsening shortness of breathand chest tightness. She denied a productive cough and fever, chills, night sweats. She would checkher oxygen saturation and it would remain above 90%. She had also met with our colleagues in sleep Medicine for further evaluation of sleep disordered breathing, she is undergoing testing in December with a sleep study. Today, she denies any shortness of breath at rest. 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 She reports using her albuterol inhaler twice while working, otherwise denies regular use. She does report the albuterol helps with chest tightness. She denies a cough. She does intermittently experience some chest pain/tightness in which she has had to use nitro. She reports she has not used this in over 6 weeks. She does note some wheezing with activity. She denies any fever, chills, night sweats, GERD like symptoms, seasonal allergies, and postnasal drip. She has noticedan increase in swelling in her lower extremities. She was seen by her primary care provider and shehad stopped taking her amlodipine as she felt this could be contributing to it. During her evaluation by her primary care provider, a BNP was ordered and was within normal. She does experience some pain in her thighs and calves when walking, otherwise denies any warmth. Denies any recent travel. She has noticed since she quit smoking in increase in her weight. She reports a 45 to 50 lb weight gain. She tries to stay active at work, denies a regular exercise program. She currently is using DuoNebs intermittently, with little improvement in her symptoms. CURRENT DYSPNEA LEVEL: mMRC Breathlessness Scale: Grade 3: stopping for breath after walking about 100 meters or after a few minutes on level ground The following portions of the patient's history were reviewed and updated as appropriate: current medications, medical history, social history, and problem list. OBJECTIVE PHYSICAL EXAMINATION General appearance: alert, cooperative, no distress, and unaccompanied Mouth: lips, mucosa, and tongue normal; teeth and gums normal Lungs: clear to auscultation bilaterally and oxygenating on room air at 93% Heart: regular rate and rhythm, S1, S2 normal, no murmur Abdomen: soft, non-tender; rounded, bowel sounds normal; no masses, Extremities: bilateral lower extremity +1 pitting edema. DIAGNOSTICS Test results are as follows: Pulmonary Function Test 11/27/2023 TLC 4.98 L (111%); RV 2.53 L (159%); FEV1/FVC 40.4; FEV1 46%; DLCO 48% Resting oxygen saturation 96%; exercise oxygen saturation 94% Moderate obstruction with air trapping. DLCO is severely reduced. Bronchodilator not given as per protocol as patient had taken her own just prior to testing. Exhaled Nitric Oxide 11/27/2023 9 TSH 11/27/2023 1.8 D-dimer 11/27/2023 383 ASSESSMENT / PLAN Mrs. Allison is a pleasant 62-year-old female presents for follow up of COPD. She was last seen inthe Pulmonary Department in 05/24/2023 following hospitalization for acute hypoxemic respiratory failure in the setting of presumed COPD exacerbation and community-acquired pneumonia. Unfortunately, due to the cost of inhalers, we have not been able to find 1 that is affordable for the patient. The daily nebulizers were not covered by insurance and she was able to receive a 1 month supply of the Anoro Ellipta, however once she went to refill the medication the yoo had increased. She currently is using albuterol as needed and her DuoNebs as needed. She does not know much improvement in her symptoms. She continues to experience shortness of breath with activity and wheezing with activity. She will intermittently experience chest pain/tightness. I do think her shortness of breath is multifactorial in the setting of weight gain as well as not being on daily inhaler therapy for her COPD. She underwent an exhaled nitric oxide prior to our visit that was within normal at 9. She also underwent pulmonary function testing that showed moderate obstruction with air trapping and a severely reduced DLCO. I do think she would benefit from daily inhaler therapy. I have placed a prescription forBevespi 2 puffs twice a day, if this is not covered by insurance, she will notify me. I have also provided her with a resource for a cost saving program to see if she would be eligible for this. She has noticed since she quit smoking, she is up 45 to 50 lb. She reports that she is active with her job, denies any regular exercise program. She has been monitoring her diet. She is interested in meeting with our weight management clinic to further discuss weight loss. I did check a TSH to ensure her thyroid is not causing her fatigue and weight gain, which was within normal. She has also noticed an increase in her lower extremity swelling. She has been evaluated by her primary care provider. Labs are not available for review, however per the patient her pro BNP was within normal. She has since stopped taking her amlodipine to see if this would help with the swelling. I would like to check aD-dimer with her history of a stroke. This returned within normal. I also placed an order for referral to our lung cancer screening program with a CT chest in May of 2024. She can follow up in the clinic in 6 months. She should continue to follow with the sleep medicine for further evaluation of sleep disordered breathing. ASSESSMENT #1 Chronic Obstructive Pulmonary Disease (HCC) #2 Obesity Body Mass Index 30-39.9 Adult #3 Smoking Tobacco Use Personal History #4 Shortness Of Breath #5 Edema Lower Extremity #6 Fatigue Ms. Genevieve Allison does have COPD Gold 2: Moderate Group E. PLAN - Start Bevespi 2 puffs twice a day. Continue to use your albuterol inhaler as needed. - Check your thyroid and d-dimer lab values. - Referral to the weight management clinic. - Low dose CT chest yearly as part of the lung cancer screening program - Work towards increasing your physical activity. - Stay up to date on age appropriate immunizations. - Follow up in 6 months Patient is agreeable with the plan outlined above, all questions were answered. I spent 50 minutes face to face and non-face to face caring for the patient today. Anum Jacobson APRN, C.N.P., D.N.P. documented in this encounter Plan of Treatment Upcoming Encounters Date Type Department Care Team (Late st Contact Info) Description 02/19/2024 2:30 PM TWISTING MACHINE OPERATOR Clinical Communication Virtual Review in [address] [phone] 02/20/2024 9:00 AM TWISTING MACHINE OPERATOR Comprehensive Visit Division of Endocrinology in [address] [phone] Robin Valenzuela M.D., M.P.H. [address] [place] [phone] 02/20/2024 10:00 AM TWISTING MACHINE OPERATOR Clinical Support Department of Nutrition and Diabetes Education in [address] [phone] Anum Jacobson APRN, C.N.P., D.N.P. [address] [place] [phone] Flo Joyner M.S., RDN, LD [address] [place] [phone] 02/29/2024 11:30 AM TWISTING MACHINE OPERATOR Office Visit [facility] in [place], [place] [address] [place] [phone] Baylee Pike M.D. [address] [place] [phone] Scheduled Referrals Name Type Priority Associated Diagnoses Order Schedule Nutrition - Weight management medical nutrition therapy overweight/obesity consult (clinic) Outpatient Referral Routine Obesity Body Mass Index 30-39.9 Adult Expected: 11/27/2023, Expires: 02/25/2025 Endocrinology - Weight management consult (clinic) Outpatient Referral Routine Obesity Body Mass Index 30-39.9 Adult Expected: 11/27/2023, Expires: 02/25/2025 PUL Lung Cancer screening program referral - initial and annual Outpatient Referral Routine Smoking Tobacco Use Personal History Expected: 05/06/2024 (Approximate), Expires: 02/25/2025 Pulmonary Medicine office visit (clinic) Outpatient Referral Routine Chronic Obstructive Pulmonary Disease (HCC) Expected: 05/26/2024, Expires: 02/25/2025 documented as of this encounter Results * Thyroid Function [place] (11/27/2023 11:12 AM CDT) TSH, Sensitive 1.8 0.3 - 4.2 mIU/L 11/27/2023 12:14 PM CDT DTL Blood (Blood, Venous) 11/27/2023 11:12 AM CDT 11/27/2023 11:49 AM CDT us Anum Jacobson APRN, C.N.P., D.N.P. LAB BLOOD ADD-ON Final Result Performing Organization Address City/[facility] Co de Phone Number [facility] [place] [address] [place] [address], [facility] [address] [address] * D-Dimer (11/27/2023 11:11 AM CDT) D-Dimer, P 383 <=500 ng/mL FEU 11/27/2023 11:52 AM CDT DT Comment: ----ADDITIONAL INFORMATION---- D-dimer values less than or equal to 500 ng/mL fibrinogen equivalent units (FEU) may be used in conjunction with clinical pre-test probability to exclude deep vein thrombosis (DVT) and/or pulmonary embolism (PE). Blood (Blood, Venous) 11/27/2023 11:11 AM CDT 11/27/2023 11:33 AM CDT Anum Jacobson APRN, C.N.P., D.N.P. LAB BLOOD ADD-ON Final Result Performing Organization Address City/[facility] Co de Phone Number [facility] [place] [address] [place] [address], [facility] [address] [address] documented in this encounter Visit Diagnoses Diagnosis Chronic Obstructive Pulmonary Disease (HCC)- Primary Obesity Body Mass Index 30-39.9 Adult Smoking Tobacco Use Personal History Shortness Of Breath Edema Lower Extremity Fatigue documented in this encounter Additional Health Concerns Assessment Noted Time PHQ-9 Depression Total Score: 6 04/29/19 20 12:40 PM TWISTING MACHINE OPERATOR documented as of this encounter Care Teams Press Operator Relationship Specialty Start Date End Date Elsewhere, Pcp PCP - General Internal Medicine 04/24/23 documented as of this encounter
--- OUTSIDE RECORDS SUMMARY | 2024-01-30 10:53 | XMS_ITS | Encounter Summary ---
Author Organization [facility] Address [address] [place] [address] Care Team Providers Care Service Order Clerk Name Role Phone Elsewhere, Pcp Primary Care Provider Unavailabl e Encounter Details Date Type Department Care Team (Late st Contact Info) Description 11/27/2023 8:00 AM CDT Diagnostic Division of Pulmonary Medicine in [place], [place] [address] [place] [address] Anum Jacobson, AMEENA, C.N.P., D.N.P. [address] [place] [address] Chronic Obstructive Pulmonary Disease Exacerbation (HCC) Social History Tobacco Use Types Packs/Day Years Used Date Smoking Tobacco: Former Cigarettes 1 49.1 0 03/14/1974 - 04/24/2023 Smokeless Tobacco: Never Alcohol Use Standard Drinks/Week Comments Yes 0 (1 standard drink = 0.6 oz pur e alcohol) Very very rarely [facility] Utilities Answer Date Recorded In the [...] Never 07/20/2019 How often do you attend lutheran or protestant serv ices? Never 07/20/2019 Active Member of [...] Answer Date Recorded PHQ-2 Score 2 04/29/2019 [facility] of Occupat ional Health - Occupational [...] your living situation today? [facility] 05/17/2023 Education Answer Date Recorded What is the highest level of school you have completed or the highest degree you have received? Associate degree: academic program 02/12/2019 Comments No Sex and Gender Information Value Date Recorded Sex Assigned at Female 05/07/2023 12:13 PM LINUX UNIX SYSTEM ADMINISTRATOR Legal Sex Female 3:09 AM LINUX UNIX SYSTEM ADMINISTRATOR Gender Identity Female 07/20/2019 7:51 PM CDT Sexual Orientation Straight 07/20/2019 7: 51 PM CDT documented as of this encounter Plan of Treatment Upcoming Encounters Date Type Department Care Team (Late st Contact Info) Description 02/19/2024 2:30 PM LINUX UNIX SYSTEM ADMINISTRATOR Clinical Communication Virtual Review in [place], [place] [address] [place] [phone] 02/20/2024 9:00 AM LINUX UNIX SYSTEM ADMINISTRATOR Comprehensive Visit Division of Endocrinology in [place], [place] [address] [place] [phone] Robin Valenzuela M.D., M.P.H. [address] [place] [phone] 02/20/2024 10:00 AM LINUX UNIX SYSTEM ADMINISTRATOR Clinical Support Department of Nutrition and Diabetes Education in [place], [place] [address] [place] [phone] Anum Jacobson, AMEENA, C.N.P., D.N.P. [address] [place] [phone] Flo Joyner M.S., RDN, LD [address] [place] [phone] 02/29/2024 11:30 AM LINUX UNIX SYSTEM ADMINISTRATOR Office Visit [facility] in [place], [place] [address] [place] [phone] Baylee Pike M.D. [address] [place] [phone] documented as of this encounter Procedures Procedure Name Priority Date/Time Associated Diagnosis Comments EXHALED NITRIC OXIDE Routine 11/27/2023 7:43 AM CDT Chronic Obstructive Pulmonary Disease Exacerbation (HCC) documented in this encounter Results * PUL Exhaled Nitric Oxide (11/27/2023 7:43 AM CDT) Exhaled NO Oral 9 ONBASE Parts per billion (ULN) 39 ONBASE ENOComment Patient uses Albuterol ONBASE us Anum Jacobson APRN C.N.P., D.N.P. PFT ORDER KEYLA Final Result ONBASE NA documented in this encounter Visit Diagnoses Diagnosis Chronic Obstructive Pulmonary Disease Exacerbation (HCC) documented in this encounter Additional Health Concerns Assessment Noted Time PHQ-9 Depression Total Score: 6 04/29/19 20 12:40 PM LINUX UNIX SYSTEM ADMINISTRATOR documented as of this encounter Care Teams Service Order Clerk Relationship Specialty Start Date End Date Elsewhere, Pcp PCP - General Internal Medicine 04/24/23 documented as of this encounter
[2024-01-30 11:06] LABS: HCO3 VBG 27 mmol/L (21-28); PCO2 VBG 45 mmHG (40-50); PO2 VBG 31.9 mmHG (25-47); pH VBG 7.394 (7.32-7.43)
[2024-01-30 11:07] LABS: Basophils Absolute Auto 0.04 K/uL (0.00-0.30); Basophils Percent Auto 0.6 % (0.0-3.0); Eosinophils Absolute Auto 0.18 K/uL (0.00-0.50); Eosinophils Percent Auto 2.5 % (0.0-7.0); Hematocrit 36.5 % (33.0-51.0); Hemoglobin* 11.8 gm/dL (12.0-16.0); Immature Granulocytes Abs Auto 0.04 K/uL (0.00-0.30); Immature Granulocytes Pct Auto 0.6 %; Lactate* 0.9 mmol/L (0.5-1.9); Lymphocytes Percent Auto 5.3 % (20-44); Mean Corpuscular HGB Conc 32 gm/dL (32-36); Mean Corpuscular Hemoglobin 31 pg (26-34); Mean Corpuscular Volume 96 fL (80-100); Monocytes Percent Auto 11.4 % (0.0-11.0); Neutrophils Percent Auto 79.6 % (42.0-72.0); Platelet Count* 276 K/uL (140-440); RDW Coefficient of Variation % 12.3 % (11.5-15.5); Red Blood Count 3.82 m/uL (4.00-5.20); White Blood Count* 7.13 K/uL (4.50-11.00)
[2024-01-30] MEDS: KETOROLAC 15 MG/ML inj IVP (11:10)
[2024-01-30] MEDS: IPRAT-ALBUT 0.5-2.5 MG/3 ML NEB 1 NEB IH ×2 (11:11→22:30)
[2024-01-30] MEDS: METHYLPREDNISOLONE SOD SUCC 62.5 MG/ML (125) 125 MG IVP (11:11)
[2024-01-30] MEDS: ASPIRIN 81 MG TAB.CHEW 162 MG PO (11:11)
[2024-01-30 11:13] LABS: Slide Review Reflex No
[2024-01-30 11:19] LABS: Chloride* 102 mmol/L (96-114)
[2024-01-30 11:20] LABS: Potassium* 4.1 mmol/L (3.6-5.1); Sodium* 135 mmol/L (135-149)
[2024-01-30 11:22] LABS: Creatinine* 0.4 mg/dL (0.5-1.5); Est. Creatinine Clearance* 41.36; Estimated Glomerular Filt Rate 111 ml/min; INR 0.92 (0.91-1.10); Prothrombin Time 12.9 Seconds
[2024-01-30 11:23] LABS: Anion Gap 6 mEq/L (7-15); Blood Urea Nitrogen* 9 mg/dL (7-30); Calcium* 9.1 mg/dL (8.4-10.6); Carbon Dioxide* 27 mmol/L (20-32); Glucose* 96 mg/dL (60-115)
[2024-01-30 11:25] LABS: D Dimer Quantitative* 0.45 ug/ml (0.00-0.50)
[2024-01-30 11:33] LABS: NT Pro B Type NatriureticPept* 166 pg/mL
--- NOTE | 2024-01-30 12:27 | CRLHL7_ITS ---
For Patients: As a result of the Century Cures Act, medical imaging exams and procedure reports are released immediately into your electronic medical record. You may view this report before your referring provider. If you have questions, please contact your health care provider. INDICATION: Headache. Hypertension. Positive COVID test. COMPARISON: 12/24/2018 TECHNIQUE: CT of the head without intravenous contrast. Please note that all CT scans at this facility use dose modulation, iterative reconstruction, and/or weight-based dosing when appropriate to reduce radiation dose to as low as reasonably achievable. FINDINGS: Chronic encephalomalacia involving the right occipital lobe, centered on the calcarine sulcus involving both the cuneus and lingual gyrus. Mild associated ex vacuo dilatation of the occipital horn of the right lateral ventricle. No acute infarct. No intracranial mass or mass effect. No intracranial hemorrhage. No hydrocephalus. Intact skull base and cranial vault. Visualized orbits are without significant incidental findings. Visualized paranasal sinuses and mastoid air cells are clear. Unremarkable soft tissues. IMPRESSION: Chronic right occipital lobe infarct. No acute infarct, intracranial hemorrhage, mass, mass effect or hydrocephalus. Please note that all CT scans at this facility use dose modulation, iterative reconstruction, and/or weight-based dosing when appropriate to reduce radiation dose to as low as reasonably achievable. Dictated by Luiz Lorenzana MD @ 01/30/2024 1:12:29 PM (Electronically Signed)
--- NOTE | 2024-01-30 12:38 | CRLHL7_ITS ---
For Patients: As a result of the Century Cures Act, medical imaging exams and procedure reports are released immediately into your electronic medical record. You may view this report before your referring provider. If you have questions, please contact your health care provider. INDICATION: Dyspnea, positive COVID. TECHNIQUE: CT chest PE was acquired with 95 cc Isovue 370 IV contrast. COMPARISON: None. FINDINGS: Heart and vasculature: Contrast opacification of the pulmonary arterial tree is adequate. No sign of pulmonary embolism. Heart size is normal. Coronary artery calcifications. Thoracic aorta and pulmonary artery are normal in caliber. Lungs and pleura: Pulmonary emphysema. Peribronchial thickening. No suspicious nodules or infiltrates. Scattered atelectasis. No pleural effusions, pleural thickening, or pneumothorax. Lymph nodes/mediastinum: No mediastinal, hilar, or axillary adenopathy. Chest wall: No masses. Upper abdomen: No acute or significant findings. Bones: Unremarkable for age. IMPRESSION: No pulmonary embolism. Peribronchial thickening consistent with viral pneumonia. No focal consolidations. Pulmonary emphysema. Please note that all CT scans at this facility use dose modulation, iterative reconstruction, and/or weight-based dosing when appropriate to reduce radiation dose to as low as reasonably achievable. Dictated by Francisco Bronson MD @ 01/30/2024 1:15:15 PM (Electronically Signed)
[2024-01-30] MEDS: ACETAMINOPHEN 500 MG TABLET 1000 MG PO (12:39)
[2024-01-30] MEDS: ONDANSETRON 2 MG/ML inj 4 MG IVP (14:57)
[2024-01-30] MEDS: HYDROmorphone 0.5 mg/0.5 ml inj IVP (15:01)
--- NOTE | 2024-01-30 16:00 | P.IMHP_ITS ---
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 She has had a long history of shortness of breath for which she has been following with a applications systems analyst at [facility] and has had PFTs twice in the past year. She has COPD and had a hospital stay at [facility] for pneumonia in April of this year. She has no history of congestive heart failure. She has had stable mild lower extremity edema for the past 2-4 months. She had been on hydrochlorothiazide and possibly also a short course of furosemide without improvement. She is no longer taking either of these medications. In the last 3-5 days she has developed worsening shortness of breath and cough. She was worried that she might be coming down with pneumonia again. She saw clinic provider this morning and was prescribed prednisone and azithromycin. Her blood pressure was markedly elevated at the appointment and she had a headache, for which she was sent to the ER for concern of hypertensive emergency. Once in the emergency department she continued to feel more short of breath and felt like she was getting worse. She was placed on high-flow oxygen with some improvement in dyspnea. Review of Systems Status of ROS: Reports: 10 or more systems reviewed and unremarkable except as noted in History and below [facility] Medical History (Updated 01/31/24 @ 00:50 by Vianney Gutierres MD) Abdominal aortic aneurysm ?I71.40 - Abdominal aortic aneurysm, without rupture, unspecified (ICD-10) Major depressive disorder ?F32.9 - Major depressive disorder, single episode, unspecified (ICD-10) Carotid stenosis ?I65.29 - Occlusion and stenosis of unspecified carotid artery (ICD-10) History of arterial ischemic stroke ?Z86.73 - Personal history of transient ischemic attack (TIA), and cerebral infarction without residual deficits (ICD-10) Hyperlipidemia ?E78.5 - Hyperlipidemia, unspecified (ICD-10) Irritable bowel syndrome ?K58.9 - Irritable bowel syndrome without diarrhea (ICD-10) Essential hypertension ?I10 - Essential (primary) hypertension (ICD-10) Postmenopause atrophic vaginitis ?N95.2 - Postmenopausal atrophic vaginitis (ICD-10) COVID-19 vaccination declined ?Z28.21 - Immunization not carried out because of patient refusal (ICD-10) Coronary artery disease ?I25.10 - Atherosclerotic heart disease of [place] coronary artery without angina pectoris (ICD-10) COPD (chronic obstructive pulmonary disease) ?J44.9 - Chronic obstructive pulmonary disease, unspecified (ICD-10) Pneumonia, bacterial (04/24/23) ?J15.9 - Unspecified bacterial pneumonia (ICD-10) Visual field defect (01/05/19) ?H53.40 - Unspecified visual field defects (ICD-10) Tobacco abuse (01/05/19) ?Z72.0 - Tobacco use (ICD-10) History of syncope ?Z87.898 - Personal history of other specified conditions (ICD-10) Surgical History History of laparoscopy ?Z98.890 - Other specified postprocedural states (ICD-10) History of tubal ligation ?Z98.51 - Tubal ligation status (ICD-10) Family History Maternal Grandfather Coronary artery disease Hx of CABG Other High cholesterol Social History (Updated 01/30/24 @ 21:41 by Vianney Gutierres MD) Narrative: 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 Former smoker, quit 04/2023. Denies EtOH or recreational drug use. DNR/DNI. What is your current living situation?: I presently have a place to live Problems where you live: no known problems Problems where you live details: n/a In the past 12 months, utilities in danger of being shut off: no In the past 12 mos, have been you worried that your food would run out before you had money to buy more?: never true In the past 12 mos, the food you bought just didn't last and you didn't have money to buy more?: never true Highest level of school completed/degree received: Associate degree: academic program Smoking Status: Former smoker Do you use any of these nicotine containing products: None Second hand tobacco smoke exposure: No How often do you have a drink containing alcohol: monthly or less How many standard drinks containing alcohol do you have on a typical day: 1 or 2 How often do you have six or more drinks on one occasion: Never AUDIT-C Alcohol total score: 1 Non-prescribed substance use: denies use Caffeine: Yes (diet pepsi daily) How often does anyone, including family, friends and others, physically hurt you : never How often does anyone, including family, friends and others, insult or talk down to you: never How often does anyone, including family, friends and others, threaten you with harm: never How often does anyone, including family, friends and others, scream or curse at you: never service: No Meds Home Medications and Allergies Home Medications ?Medication ?Instructions ?Recorded ?Confirmed ?Type aspirin 325 mg tablet,delayed 325 mg PO HS 02/10/22 01/30/24 History release atorvastatin 80 mg tablet 80 mg PO HS 05/04/23 01/30/24 History nitroglycerin 0.4 mg sublingual 0.4 mg sublingual Q5M PRN angina 09/18/23 01/30/24 History tablet ipratropium 0.5 mg-albuterol 3 mg 3 ml inhalation Q6H PRN 10/24/23 01/30/24 History (2.5 mg base)/3 mL nebulization soln valsartan 160 mg tablet 160 mg PO HS 01/30/24 01/30/24 History Allergies Allergy/AdvReac Type Severity Reaction Status Date / Time Penicillins Allergy Severe swollen Verified 01/30/24 08:10 legs Sulfa (Sulfonamide Allergy Severe Hives Verified 01/30/24 08:10 Antibiotics) Exam Narrative: Exam Narrative: General: Mild respiratory distress. Able to talk in complete sentences. Awake alert oriented x3. She was on a continuous pulse oximeter that red 94% while she was on high-flow nasal cannula. She took off the oxygen and within 3-5 minutes her sats trended down to 86% and were still dropping when I asked her to put the high-flow back on, which she did, and her oxygen came back up to 93 %. HEENT: Normocephalic atraumatic, pupils equally round and reactive to light and accommodation. Oropharynx clear. Mucous membranes are moist. No cervical lymphadenopathy, thyromegaly or carotid bruits. No JVD. Cardiovascular: Regular rate and rhythm. No murmurs, gallops, or rubs. Chest: Mildly increased work of breathing. She laying back in the bed with the head of bed at a 45 degree angle. No tripoding or use of accessory muscles. A little tight, but there is air movement and there is no wheezing. Clear to auscultation bilaterally. No crackles. Abdomen: Bowel sounds present. Soft, nondistended, nontender. No hepatosplenomegaly or masses. Extremities: Trace bilateral pretibial edema, no cyanosis or clubbing. Skin: No jaundice, no pallor, no rashes on visible skin. Const: Vital Signs, click to edit/add: Vital Signs - 24 hr 01/30/24 09:45 01/30/24 11:02 01/30/24 11:15 Temperature 100.1 F H Pulse Rate 86 87 Pulse Rate [Pulse Oximeter] 96 Respiratory Rate 26 H Blood Pressure Blood Pressure [Le ft Upper Arm] 212/103 H Pulse Oximetry 95 96 95 Oxygen Delivery Me thod Room Air Oxygen Flow Rate Fraction of Inspir ed Oxygen 01/30/24 11:19 01/30/24 11:20 01/30/24 11:30 Temperature Pulse Rate 82 85 84 Pulse Rate [Pulse Oximeter] Respiratory Rate Blood Pressure 182/85 H Blood Pressure [Le ft Upper Arm] Pulse Oximetry 95 95 100 Oxygen Delivery Me thod Oxygen Flow Rate Fraction of Inspir ed Oxygen 01/30/24 11:39 01/30/24 11:45 01/30/24 11:47 Temperature 99.7 F H Pulse Rate 87 Pulse Rate [Pulse Oximeter] Respiratory Rate Blood Pressure Blood Pressure [Le ft Upper Arm] Pulse Oximetry 98 100 Oxygen Delivery Me thod Nasal Cannula Oxygen Flow Rate 2 Fraction of Inspir ed Oxygen 01/30/24 12:00 01/30/24 12:15 01/30/24 12:44 Temperature Pulse Rate 94 89 Pulse Rate [Pulse Oximeter] Respiratory Rate 30 H Blood Pressure 186/90 H Blood Pressure [Le ft Upper Arm] Pulse Oximetry 99 100 Oxygen Delivery Me thod Oxygen Flow Rate Fraction of Inspir ed Oxygen 01/30/24 13:06 01/30/24 13:15 01/30/24 13:30 Temperature Pulse Rate 91 87 88 Pulse Rate [Pulse Oximeter] Respiratory Rate 26 H Blood Pressure Blood Pressure [Le ft Upper Arm] Pulse Oximetry 98 98 97 Oxygen Delivery Me thod Oxygen Flow Rate Fraction of Inspir ed Oxygen 01/30/24 13:45 01/30/24 14:00 01/30/24 14:15 Temperature Pulse Rate 84 78 86 Pulse Rate [Pulse Oximeter] Respiratory Rate Blood Pressure Blood Pressure [Le ft Upper Arm] Pulse Oximetry 97 89 94 Oxygen Delivery Me thod Oxygen Flow Rate Fraction of Inspir ed Oxygen 01/30/24 14:30 01/30/24 14:45 01/30/24 14:47 Temperature Pulse Rate 84 77 Pulse Rate [Pulse Oximeter] Respiratory Rate Blood Pressure Blood Pressure [Le ft Upper Arm] Pulse Oximetry 95 92 Oxygen Delivery Me thod Oxygen Flow Rate 20 Fraction of Inspir ed Oxygen 30 01/30/24 15:00 01/30/24 15:02 Temperature 97.6 F Pulse Rate Pulse Rate [Pulse Oximeter] Respiratory Rate Blood Pressure Blood Pressure [Le ft Upper Arm] 172/76 H Pulse Oximetry Oxygen Delivery Me thod Oxygen Flow Rate Fraction of Inspir ed Oxygen Hospitalist - H&P: Result Labs Labs: Short CBC 01/30/24 Range/Units 10:55 WBC 7.13 (4.50-11.00) K/uL Hgb 11.8 L (12.0-16.0) gm/dL Hct 36.5 (33.0-51.0) % Plt Count 276 (140-440) K/uL BMP 01/30/24 10:55 Sodium 135 Potassium 4.1 Chloride 102 Carbon Dioxide 27 BUN 9 Creatinine 0.4 L Glucose 96 Calcium 9.1 01/30/2024 EKG: Normal sinus rhythm, 83 beats per minute, normal EKG. Ordering Physician: Maksim Menard M.D. Date of Service: 01/30/24 Procedure(s): XR chest 2V Accession Number(s): [id number] cc: Maksim Menard M.D.; Rupali Tate M.D.~ For Patients: As a result of the Cures Act, medical imaging exams and procedure reports are released immediately into your electronic medical record. You may view this report before your referring provider. If you have questions, please contact your health care provider. INDICATION: Cough, shortness of breath TECHNIQUE: Chest 2 views COMPARISON: 10/24/2023 FINDINGS: Lung volumes are similar. Stable mediastinal contours. Mild scarring in the lingula. No infiltrate or edema. No fracture. IMPRESSION: No acute findings. Dictated by Brad Lal MD @ 01/30/2024 10:17:38 AM (Electronically Signed) Ordering Physician: Theodore Madden M.D. Date of Service: 01/30/24 Procedure(s): CT head/brain wo con Accession Number(s): [id number] cc: Rupali Tate M.D.; Theodore Madden M.D.~ For Patients: As a result of the Century Cures Act, medical imaging exams and procedure reports are released immediately into your electronic medical record. You may view this report before your referring provider. If you have questions, please contact your health care provider. INDICATION: Headache. Hypertension. Positive COVID test. COMPARISON: 12/24/2018 TECHNIQUE: CT of the head without intravenous contrast. Please note that all CT scans at this facility use dose modulation, iterative reconstruction, and/or weight-based dosing when appropriate to reduce radiation dose to as low as reasonably achievable. FINDINGS: Chronic encephalomalacia involving the right occipital lobe, centered on the calcarine sulcus involving both the cuneus and lingual gyrus. Mild associated ex vacuo dilatation of the occipital horn of the right lateral ventricle. No acute infarct. No intracranial mass or mass effect. No intracranial hemorrhage. No hydrocephalus. Intact skull base and cranial vault. Visualized orbits are without significant incidental findings. Visualized paranasal sinuses and mastoid air cells are clear. Unremarkable soft tissues. IMPRESSION: Chronic right occipital lobe infarct. No acute infarct, intracranial hemorrhage, mass, mass effect or hydrocephalus. Please note that all CT scans at this facility use dose modulation, iterative reconstruction, and/or weight-based dosing when appropriate to reduce radiation dose to as low as reasonably achievable. Dictated by Luiz Lorenzana MD @ 01/30/2024 1:12:29 PM (Electronically Signed) Ordering Physician: Theodore Madden M.D. Date of Service: 01/30/24 Procedure(s): CT angio chest PE protocol Accession Number(s): [id number] cc: Rupali Tate M.D.; Theodore Madden M.D.~ For Patients: As a result of the Century Cures Act, medical imaging exams and procedure reports are released immediately into your electronic medical record. You may view this report before your referring provider. If you have questions, please contact your health care provider. INDICATION: Dyspnea, positive COVID. TECHNIQUE: CT chest PE was acquired with 95 cc Isovue 370 IV contrast. COMPARISON: None. FINDINGS: Heart and vasculature: Contrast opacification of the pulmonary arterial tree is adequate. No sign of pulmonary embolism. Heart size is normal. Coronary artery calcifications. Thoracic aorta and pulmonary artery are normal in caliber. Lungs and pleura: Pulmonary emphysema. Peribronchial thickening. No suspicious nodules or infiltrates. Scattered atelectasis. No pleural effusions, pleural thickening, or pneumothorax. Lymph nodes/mediastinum: No mediastinal, hilar, or axillary adenopathy. Chest wall: No masses. Upper abdomen: No acute or significant findings. Bones: Unremarkable for age. IMPRESSION: No pulmonary embolism. Peribronchial thickening consistent with viral pneumonia. No focal consolidations. Pulmonary emphysema. Please note that all CT scans at this facility use dose modulation, iterative reconstruction, and/or weight-based dosing when appropriate to reduce radiation dose to as low as reasonably achievable. Dictated by Francisco Bronson MD @ 01/30/2024 1:15:15 PM (Electronically Signed) Assessment and Plan Assessment and plan (1) Acute hypoxemic respiratory failure due to COVID-19: Problem comment: - continue high-flow nasal cannula - monitor for somnolence which may be an indicator of hypercapnia with history of COPD. - due to hypoxia with COVID-19, start dexamethasone. Patient had been given Solu-Medrol earlier in the emergency department, but it has been 6 hours since that was given. - since her COVID symptoms have been going on for 3-5 days, she is not a candidate for Paxil of it or Remdesivir. I do not think they would be helpful at this time. - dyspnea and respiratory status is improving with high-flow nasal cannula, so I will not order baricitinib at this time, but this should be considered if her respiratory status worsens further. Status: Acute (2) Pneumonia due to COVID-19 virus: Problem comment: - as above Status: Acute (3) COVID-19: Problem comment: - as above Status: Acute (4) Headache: Problem comment: - possibly secondary to hypertension or COVID - was given Dilaudid in the emergency department with good improvement. I have ordered p.r.n. oxycodone. Status: Acute (5) Essential hypertension: Problem comment: - Diagnosed 10/24, medication (valsartan-HCTZ) started 10/24, stopped 11/24 due to hypotension/nausea, [facility] started amlodipine and valsartan 04/29 when hospitalized for pneumonia, valsartan changed to valsartan-HCTZ 06/27, but brought back to valsartan alone (due to leg cramps) 09/26 - markedly elevated blood pressure today. This is now improving without intervention. Continue valsartan. Monitor. Status: Chronic (6) Hyperlipidemia: Problem comment: - LDL 180 05/2008, simvastatin started 08/20, she stopped it herself 02/19, statin restarted 03/24, [facility] changed her simvastatin to atorvastatin 01/22 for occipital ischemic stroke, [facility] upped atorvastatin for LDL 77 04/29 - continue atorvastatin Status: Chronic (7) COPD (chronic obstructive pulmonary disease): Problem comment: - I do not think she has an active COPD exacerbation. I have ordered de xamethasone for hypoxemia in the setting of COVID. Monitor for symptoms of COPD exacerbation. Status: Chronic (8) Chest discomfort: Problem comment: - Patient has a history of coronary artery disease with angina and is now COVID positive. Chest CTA was negative for PE. EKG is reviewed. Serial troponin x2 is negative so far. Will check another 1 this evening. Monitor on telemetry. Status: Acute (9) Coronary artery disease: Problem comment: Her [facility], Dr. [place], 05/24/2023, she has known CAD, presumably on the basis of dense coronary artery calcifications on CT chest, advised to manage stable coronary artery disease with angina with medication, and recommended by Cardiology to consider coronary angiography if symptoms of angina worsen/continue Status: Chronic Plan - VTE prophylaxis: Low-dose nightly enoxaparin and SCDs.
[2024-01-30] MEDS: ACETAMINOPHEN 325 MG TABLET 975 MG PO (17:27)
[2024-01-30] MEDS: dexAMETHasone 2 MG TABLET 6 MG PO (17:28)
[2024-01-30] MEDS: ASPIRIN EC 325 MG TABLET PO (22:29)
[2024-01-30] MEDS: ATORVASTATIN CALCIUM 40 MG TABLET 80 MG PO (22:29)
[2024-01-30] MEDS: VALSARTAN 80 MG TABLET 160 MG PO (22:30)
[2024-01-30] MEDS: SODIUM CHLORIDE 0.9 % (FLUSH) 10 ML SYRINGE 5 ML IVF (22:30)
[2024-01-30 23:09] LABS: Troponin I* < 0.01 ng/mL (0.01-0.04)
[2024-01-31] VITALS (25 sets, daily range): BP systolic 126–203; BP diastolic 59–98; PULSE 68–94; RESP 20–190; TEMP 36.4–37.1; O2SAT 91–98
[2024-01-31] MEDS: IPRAT-ALBUT 0.5-2.5 MG/3 ML NEB 1 NEB IH ×3 (04:54→23:05)
[2024-01-31] MEDS: ACETAMINOPHEN 325 MG TABLET 975 MG PO ×2 (05:05→20:47)
--- NOTE | 2024-01-31 06:09 | PC.NURSE ---
[id number]: Patient pleasant and cooperative. Tylenol administered for 4/10 headache. HFNC with settings 10/40 to 20/40 depending on patient needs. SOB w/activity. PRN nebs administered x2. Intermittent dry cough. Denies chest pain/N/V. Independent in room. Eating and voiding. BP remains elevated, MD aware. Afebrile.
[2024-01-31 06:32] LABS: Basophils Absolute Auto 0.01 K/uL (0.00-0.30); Basophils Percent Auto 0.1 % (0.0-3.0); Eosinophils Absolute Auto 0.01 K/uL (0.00-0.50); Eosinophils Percent Auto 0.1 % (0.0-7.0); Hematocrit 35.2 % (33.0-51.0); Hemoglobin* 11.4 gm/dL (12.0-16.0); Immature Granulocytes Pct Auto 1.3 %; Lymphocytes Percent Auto 9.6 % (20-44); Mean Corpuscular HGB Conc 32 gm/dL (32-36); Mean Corpuscular Hemoglobin 31 pg (26-34); Mean Corpuscular Volume 96 fL (80-100); Neutrophils Percent Auto 83.9 % (42.0-72.0); Platelet Count* 303 K/uL (140-440); RDW Coefficient of Variation % 12.3 % (11.5-15.5); Red Blood Count 3.68 m/uL (4.00-5.20)
[2024-01-31 06:33] LABS: Slide Review Reflex No
[2024-01-31 06:41] LABS: Chloride* 102 mmol/L (96-114); Potassium* 3.9 mmol/L (3.6-5.1); Sodium* 136 mmol/L (135-149)
[2024-01-31 06:43] LABS: Creatinine* 0.5 mg/dL (0.5-1.5); Est. Creatinine Clearance* 41.36; Estimated Glomerular Filt Rate 105 ml/min
[2024-01-31 06:44] LABS: Anion Gap 7 mEq/L (7-15); Blood Urea Nitrogen* 17 mg/dL (7-30); Calcium* 9.1 mg/dL (8.4-10.6); Carbon Dioxide* 27 mmol/L (20-32); Glucose* 176 mg/dL (60-115)
[2024-01-31] MEDS: ONDANSETRON 2 MG/ML inj 4 MG IVP ×2 (08:11→17:11)
--- NOTE | 2024-01-31 08:44 | P.IMPN_ITS ---
Progress Note: A&P Assessment and plan (1) Acute hypoxemic respiratory failure due to COVID-19: Problem details: - continue high-flow nasal cannula, RT following - started on Dexamethasone as COVID-specific therapy; will transition to Prednisone on 01/30 as she felt better relief with Solu-medrol for symptoms - not a candidate Paxlovid/Remdesivir on admission, as COVID symptoms present for 4-5 days - consider Baricitinib if respiratory status worsens Status: Acute (2) Headache: Problem details: - possibly secondary to hypertension or COVID (BP in ER 220/100s) - no acute findings on head CT in ER - prn pain management, BP improved 01/30 Status: Acute (3) Essential hypertension: Problem details: - Diagnosed 10/24, medication (valsartan-HCTZ) started 10/24, stopped 11/24 due to hypotension/nausea, [facility] started amlodipine and valsartan 04/29 when hospitalized for pneumonia, valsartan changed to valsartan-HCTZ 06/27, but brought back to valsartan alone (due to leg cramps) 09/26 - markedly elevated BP on admission 01/29, improved 01/30, continue home Valsartan Status: Chronic (4) Hyperlipidemia: Problem details: - LDL 180 05/2008, simvastatin started 08/20, she stopped it herself 02/19, [facility] restarted 03/24, [facility] changed her simvastatin to atorvastatin 01/22 for occipital ischemic stroke, [facility] increased atorvastatin for LDL 77 04/29 Status: Chronic (5) COPD (chronic obstructive pulmonary disease): Problem details: - does not appear to have an active COPD exacerbation at this time; transition Dexamethasone to Prednisone 01/30 given better symptom control Status: Chronic (6) Chest discomfort: Problem details: - noted on admission 01/29, h/o CAD with stable angina - negative chest CT for PE - reassuring EKG, troponin negative x3, continue to monitor on telemetry Status: Acute (7) Coronary artery disease: Problem details: - per [facility], Dr. Phoenix, 05/24/2023, she has known CAD, presumably on the basis of dense coronary artery calcifications on CT chest, advised to manage stable coronary artery disease with angina with medication, and recommended by Cardiology to consider coronary angiography if symptoms of angina worsen/continue - continue home medications, including ASA Status: Chronic Plan - per above - Lovenox and ASA for ppx - home when stable on RA, likely will need 1-2 more days inpatient Subjective Date Seen: 01/31/24 Interval history: Genevieve was admitted to the hospital yesterday for acute hypoxic respiratory failure in the setting of COVID infection with known h/o COPD. This morning, she feels better. Able to speak in full sentences at rest, still having hypoxia (into the 85% range) after ambulation. She felt like the Solu-Medrol in ED was more helpful for symptoms than Dexamethasone. RT following, on high flow supplemental oxygen. No chest pain this morning (notes history of chest pain with exertion, diagnosis of stable angina and sees Cardiology at [facility] as an outpatient). Troponin negative x3, telemetry reassuring. No other concerns for hospitalist team. Exam Narrative: Exam Narrative: GEN: Alert and oriented, speaking in full sentences HEENT: EOMIs bilaterally, no scleral icterus CV: RRR, No concerning murmurs R: Mildly decreased bibasilar breath sounds, no wheezing, no rales Skin: No concerning skin lesions or rashes on exposed skin Neuro: Nonfocal Psych: Appropriate Const: Vital Signs, click to edit/add: Vital Signs - 24 hr 01/30/24 09:45 01/30/24 11:02 01/30/24 11:15 Temperature 100.1 F H Pulse Rate 86 87 Pulse Rate [Pulse Oximeter] 96 Respiratory Rate 26 H Blood Pressure Blood Pressure [Le ft Upper Arm] 212/103 H Blood Pressure [Ri ght Arm] Pulse Oximetry 95 96 95 Oxygen Delivery Me thod Room Air Oxygen Flow Rate Fraction of Inspir ed Oxygen 01/30/24 11:19 01/30/24 11:20 01/30/24 11:30 Temperature Pulse Rate 82 85 84 Pulse Rate [Pulse Oximeter] Respiratory Rate Blood Pressure 182/85 H Blood Pressure [Le ft Upper Arm] Blood Pressure [Ri ght Arm] Pulse Oximetry 95 95 100 Oxygen Delivery Me thod Oxygen Flow Rate Fraction of Inspir ed Oxygen 01/30/24 11:39 01/30/24 11:45 01/30/24 11:47 Temperature 99.7 F H Pulse Rate 87 Pulse Rate [Pulse Oximeter] Respiratory Rate Blood Pressure Blood Pressure [Le ft Upper Arm] Blood Pressure [Ri ght Arm] Pulse Oximetry 98 100 Oxygen Delivery Me thod Nasal Cannula Oxygen Flow Rate 2 Fraction of Inspir ed Oxygen 01/30/24 12:00 01/30/24 12:15 01/30/24 12:44 Temperature Pulse Rate 94 89 Pulse Rate [Pulse Oximeter] Respiratory Rate 30 H Blood Pressure 186/90 H Blood Pressure [Le ft Upper Arm] Blood Pressure [Ri ght Arm] Pulse Oximetry 99 100 Oxygen Delivery Me thod Oxygen Flow Rate Fraction of Inspir ed Oxygen 01/30/24 13:06 01/30/24 13:15 01/30/24 13:30 Temperature Pulse Rate 91 87 88 Pulse Rate [Pulse Oximeter] Respiratory Rate 26 H Blood Pressure Blood Pressure [Le ft Upper Arm] Blood Pressure [Ri ght Arm] Pulse Oximetry 98 98 97 Oxygen Delivery Me thod Oxygen Flow Rate Fraction of Inspir ed Oxygen 01/30/24 13:45 01/30/24 14:00 01/30/24 14:15 Temperature Pulse Rate 84 78 86 Pulse Rate [Pulse Oximeter] Respiratory Rate Blood Pressure Blood Pressure [Le ft Upper Arm] Blood Pressure [Ri ght Arm] Pulse Oximetry 97 89 94 Oxygen Delivery Me thod Oxygen Flow Rate Fraction of Inspir ed Oxygen 01/30/24 14:30 01/30/24 14:45 01/30/24 14:47 Temperature Pulse Rate 84 77 Pulse Rate [Pulse Oximeter] Respiratory Rate Blood Pressure Blood Pressure [Le ft Upper Arm] Blood Pressure [Ri ght Arm] Pulse Oximetry 95 92 Oxygen Delivery Me thod Oxygen Flow Rate 20 Fraction of Inspir ed Oxygen 30 01/30/24 15:00 01/30/24 15:02 01/30/24 15:51 Temperature 97.6 F 96.9 F L Pulse Rate Pulse Rate [Pulse Oximeter] 86 Respiratory Rate 20 Blood Pressure Blood Pressure [Le ft Upper Arm] 172/76 H Blood Pressure [Ri ght Arm] 167/89 H Pulse Oximetry 91 Oxygen Delivery Me thod Room Air Oxygen Flow Rate Fraction of Inspir ed Oxygen 01/30/24 15:51 01/30/24 16:30 01/30/24 16:49 Temperature Pulse Rate Pulse Rate [Pulse Oximeter] Respiratory Rate 20 Blood Pressure Blood Pressure [Le ft Upper Arm] Blood Pressure [Ri ght Arm] Pulse Oximetry 98 91 91 Oxygen Delivery Me thod High Flow Nasal Ca nnula Oxygen Flow Rate 20 Fraction of Inspir ed Oxygen 40 01/30/24 18:00 01/30/24 18:30 01/30/24 19:00 Temperature 96.7 F L Pulse Rate Pulse Rate [Pulse Oximeter] 81 Respiratory Rate 20 Blood Pressure Blood Pressure [Le ft Upper Arm] Blood Pressure [Ri ght Arm] 180/92 H Pulse Oximetry 95 Oxygen Delivery Me thod High Flow Nasal Ca nnula Oxygen Flow Rate Fraction of Inspir ed Oxygen 40 40 01/30/24 19:26 01/30/24 20:38 01/30/24 20:41 Temperature Pulse Rate 85 Pulse Rate [Pulse Oximeter] Respiratory Rate Blood Pressure Blood Pressure [Le ft Upper Arm] Blood Pressure [Ri ght Arm] Pulse Oximetry 96 Oxygen Delivery Me thod Oxygen Flow Rate Fraction of Inspir ed Oxygen 40 01/30/24 21:00 01/30/24 21:58 01/30/24 22:38 Temperature 97.9 F 97.6 F Pulse Rate Pulse Rate [Pulse Oximeter] 83 75 Respiratory Rate 22 20 Blood Pressure Blood Pressure [Le ft Upper Arm] Blood Pressure [Ri ght Arm] 167/91 H 166/85 H Pulse Oximetry 96 98 Oxygen Delivery Me thod High Flow Nasal Ca nnula High Flow Nasal Ca nnula Oxygen Flow Rate 10 Fraction of Inspir ed Oxygen 40 40 01/30/24 22:43 01/30/24 23:24 01/31/24 00:35 Temperature Pulse Rate 90 Pulse Rate [Pulse Oximeter] Respiratory Rate 20 Blood Pressure Blood Pressure [Le ft Upper Arm] Blood Pressure [Ri ght Arm] Pulse Oximetry 95 Oxygen Delivery Me thod High Flow Nasal Ca nnula Oxygen Flow Rate 10 Fraction of Inspir ed Oxygen 40 40 01/31/24 00:35 01/31/24 00:36 01/31/24 02:21 Temperature 98.0 F Pulse Rate Pulse Rate [Pulse Oximeter] 75 Respiratory Rate 22 Blood Pressure Blood Pressure [Le ft Upper Arm] Blood Pressure [Ri ght Arm] 136/75 Pulse Oximetry 96 95 Oxygen Delivery Me thod High Flow Nasal Ca nnula Oxygen Flow Rate Fraction of Inspir ed Oxygen 40 01/31/24 03:11 01/31/24 03:19 01/31/24 04:49 Temperature 98.0 F Pulse Rate 78 Pulse Rate [Pulse Oximeter] 78 Respiratory Rate 22 Blood Pressure Blood Pressure [Le ft Upper Arm] Blood Pressure [Ri ght Arm] 126/59 L Pulse Oximetry 94 94 Oxygen Delivery Me thod High Flow Nasal Ca nnula Oxygen Flow Rate 15 Fraction of Inspir ed Oxygen 40 01/31/24 04:49 01/31/24 04:51 01/31/24 05:46 Temperature 98.2 F Pulse Rate Pulse Rate [Pulse Oximeter] 90 Respiratory Rate 20 Blood Pressure Blood Pressure [Le ft Upper Arm] Blood Pressure [Ri ght Arm] 191/87 H Pulse Oximetry 94 Oxygen Delivery Me thod High Flow Nasal Ca nnula Oxygen Flow Rate 15 Fraction of Inspir ed Oxygen 40 40 40 01/31/24 07:00 01/31/24 07:46 01/31/24 08:00 Temperature 98.4 F Pulse Rate 68 Pulse Rate [Pulse Oximeter] 87 Respiratory Rate 22 22 Blood Pressure Blood Pressure [Le ft Upper Arm] Blood Pressure [Ri ght Arm] 141/78 H Pulse Oximetry 96 Oxygen Delivery Me thod High Flow Nasal Ca nnula Oxygen Flow Rate 15 Fraction of Inspir ed Oxygen 40 01/31/24 08:00 01/31/24 08:00 01/31/24 08:11 Temperature Pulse Rate Pulse Rate [Pulse Oximeter] Respiratory Rate Blood Pressure Blood Pressure [Le ft Upper Arm] Blood Pressure [Ri ght Arm] Pulse Oximetry 95 96 Oxygen Delivery Me thod High Flow Nasal Ca nnula Oxygen Flow Rate Fraction of Inspir ed Oxygen 32 Labs Labs: Laboratory Results - last 24 hr 01/30/24 01/30/24 01/30/24 10:41 10:55 13:38 WBC 7.13 RBC 3.82 L Hgb 11.8 L Hct 36.5 MCV 96 MCH 31 MCHC 32 RDW Coeff of Amelia 12.3 Plt Count 276 Neut % (Auto) 79.6 H Lymph % (Auto) 5.3 L [place] % (Auto) 11.4 H Eos % (Auto) 2.5 Baso % (Auto) 0.6 Neut # (Auto) 5.70 Lymph # (Auto) 0.40 L [place] # (Auto) 0.80 Eos # (Auto) 0.18 Baso # (Auto) 0.04 Abs Immat Gran (auto) 0.04 Imm/Tot Granulo (auto) 0.6 INR 0.92 D-Dimer Quant (PE/DVT) 0.45 VBG pH 7.394 VBG pCO2 45 VBG pO2 31.9 VBG HCO3 27 Sodium 135 Potassium 4.1 Chloride 102 Carbon Dioxide 27 Anion Gap 6 L BUN 9 Creatinine 0.4 L Estimated Creat Clear 41.36 Estimated GFR 111 Glucose 96 Lactate 0.9 Calcium 9.1 Troponin I NT-Pro-B Natriuret Pep 166 POC Troponin I 0.00 L 0.00 L 01/30/24 01/31/24 22:35 06:10 WBC 7.80 RBC 3.68 L Hgb 11.4 L Hct 35.2 MCV 96 MCH 31 MCHC 32 RDW Coeff of Amelia 12.3 Plt Count 303 Neut % (Auto) 83.9 H Lymph % (Auto) 9.6 L [place] % (Auto) 5.0 Eos % (Auto) 0.1 Baso % (Auto) 0.1 Neut # (Auto) 6.50 Lymph # (Auto) 0.70 L [place] # (Auto) 0.40 Eos # (Auto) 0.01 Baso # (Auto) 0.01 Abs Immat Gran (auto) 0.10 Imm/Tot Granulo (auto) 1.3 INR D-Dimer Quant (PE/DVT) VBG pH VBG pCO2 VBG pO2 VBG HCO3 Sodium 136 Potassium 3.9 Chloride 102 Carbon Dioxide 27 Anion Gap 7 BUN 17 Creatinine 0.5 Estimated Creat Clear 41.36 Estimated GFR 105 Glucose 176 H Lactate Calcium 9.1 Troponin I < 0.01 L NT-Pro-B Natriuret Pep POC Troponin I
--- NOTE | 2024-01-31 09:25 | RESP.RT ---
Patient sitting up in bed, alert, orientated. On HFNC FiO2 40%, SaO2 98%, weaned to 32%, SaO2 95%. Breathing regular, slightly labored, some accessary muscle use. BBS diminished all martinez, no wheezing or rhonchi noted. Patient Started on PEP therapy, Aerobika used with good exhalation, with good chest shake. Patient has good congested, wet cough, productive cough, swallowed secretions, able to clear secretions when present. Continues on HFNC FiO2 32%, Flow 15 Lpm, Temperature 35 degrees (C). Goal is to wean HFNC as patient tolerates.
[2024-01-31] MEDS: SODIUM CHLORIDE 0.9 % (FLUSH) 10 ML SYRINGE 5 ML IVF ×3 (10:02→22:33)
[2024-01-31] MEDS: predniSONE 20 MG TABLET 40 MG PO (10:03)
[2024-01-31] MEDS: OMEPRAZOLE 20 MG CAPSULE DR PO (10:26)
[2024-01-31] MEDS: PROCHLORPERAZINE 5 MG/ML VIAL IV (10:26)
--- NOTE | 2024-01-31 16:07 | RESP.RT ---
GOAL: Patient has maintain SaO2 >90% during day on FiO2 30% HFNC. Patient had 2 1/2 hour nap maintaining SaO2 94% on HFNC, FiO2 decreased to 28%. Goal is to maintain SaO2 >90%, adjusting FiO2 as patient needs, please try to limit FiO2 increase to 40%, if possible. Please maintain Flow at 15 Lpm, unless nessasary to increase for patient maintain SaO2 greater than 90%.
--- NOTE | 2024-01-31 18:46 | PC.NURSE ---
End of shift-- Very pleasant and cooperative, alert and oriented patient. VSS and pt is afebrile. SPO2 maintained >90% on high flow nasal cannula at 15L with 28% FiO2. LS clear but diminished and pt continues to have a frequent non-productive cough. She c/o some mild nausea and was given Zofran once this shift. She is tolerating a regular diet and up to the BR independently. She does become SOB with exertion, but is able to recover quickly. Report to oncoming shift.
[2024-01-31] MEDS: ASPIRIN EC 325 MG TABLET PO (22:31)
[2024-01-31] MEDS: VALSARTAN 80 MG TABLET 160 MG PO (22:32)
[2024-01-31] MEDS: ATORVASTATIN CALCIUM 40 MG TABLET 80 MG PO (22:32)
[2024-01-31] MEDS: OXYCODONE 5 MG TABLET PO (22:37)
[2024-02-01] VITALS (17 sets, daily range): BP systolic 125–207; BP diastolic 66–106; PULSE 72–100; RESP 18–24; TEMP 36.4–36.7; O2SAT 93–100
--- NOTE | 2024-02-01 06:14 | PC.NURSE ---
END OF SHIFT NOTE: PT PLEASANT AND PER REPORT FEELING MUCH BETTER TODAY. PT DENIES PAIN. DENIES CP AND N/V. VSS ON SUPPLEMENTAL O2 AND HIGH FLOW. A&O. AMBULATES WITHIN ROOM INDEPENDENTLY. PT ADVISED TO WEAR OXYGEN WHEN AMBULATING TO BATHROOM TO DECREASE WORK OF BREATHING. LS DIMINISHED WITH CRACKLES TO LEFT SIDE. PRODUCTIVE COUGH WITH THICK PHLEGM. PT SLEPT WELL DURING HS.
--- NOTE | 2024-02-01 07:28 | P.IMPN_ITS ---
Progress Note: A&P Assessment and plan (1) Acute hypoxemic respiratory failure due to COVID-19: Problem details: - with COPD as comorbidity, on high-flow nasal cannula, RT following - started on Dexamethasone as COVID-specific therapy; transitioned to Prednisone on 01/30 as she felt better relief with Solu-Medrol for symptoms - not a candidate Paxlovid/Remdesivir on admission, as COVID symptoms present for 4-5 days - will repeat CXR 01/31 given increase in WBC (infectious vs demargination from steroids) + R sided rhonchi Status: Acute (2) Headache: Problem details: - possibly secondary to hypertension or COVID (BP in ER 220/100s) - no acute findings on head CT in ER - prn pain management, BP improved 01/30 Status: Acute (3) Essential hypertension: Problem details: - Diagnosed 10/24, medication (valsartan-HCTZ) started 10/24, stopped 11/24 due to hypotension/nausea, [facility] started amlodipine and valsartan 04/29 when hospitalized for pneumonia, valsartan changed to valsartan-HCTZ 06/27, but brought back to valsartan alone (due to leg cramps) 09/26 - markedly elevated BP on admission 01/29, improved, continue home Valsartan Status: Chronic (4) Hyperlipidemia: Problem details: - LDL 180 05/2008, simvastatin started 08/20, she stopped it herself 02/19, statin restarted 03/24, [facility] changed her simvastatin to atorvastatin 01/22 for occipital ischemic stroke, [place] increased atorvastatin for LDL 77 04/29 Status: Chronic (5) COPD (chronic obstructive pulmonary disease): Problem details: - does not appear to have an active COPD exacerbation at this time; transition Dexamethasone to Prednisone 01/30 given better symptom control Status: Chronic (6) Chest discomfort: Problem details: - noted on admission 01/29, h/o CAD with stable angina - negative chest CT for PE - reassuring EKG, troponin negative x3, continue to monitor on telemetry Status: Acute (7) Coronary artery disease: Problem details: - per [facility], Dr. Phoenix, 05/24/2023, she has known CAD, presumably on the basis of dense coronary artery calcifications on CT chest, advised to manage stable coronary artery disease with angina with medication, and recommended by Cardiology to consider coronary angiography if symptoms of angina worsen/continue - continue home medications, including ASA Status: Chronic Plan - per above - Lovenox, ASA for ppx Subjective Date Seen: 02/01/24 Interval history: Genevieve was admitted to the hospital on 01/29 for acute hypoxic respiratory failure in the setting of COVID infection, known COPD history. Remains on high flow oxygen, no hypoxia at rest, + dyspnea and hypoxia with activity. Feels a little worse today. Having mild nausea, no vomiting. No chest pain. WBC 12 this morning (was 7 yesterday). Co2 51. Exam Narrative: Exam Narrative: GEN: Alert and sitting comfortably in bed, able speak in full sentences, wearing supplemental oxygen HEENT: Normal external ears, EOMIs bilaterally, no scleral icterus CV: RRR, No concerning murmurs R: Decreased bibasilar air movement, no wheezing, + rhonchi right base Skin: No concerning skin lesions or rashes on exposed skin Neuro: Nonfocal Psych: Appropriate Const: Vital Signs, click to edit/add: Vital Signs - 24 hr 01/31/24 07:46 01/31/24 08:00 01/31/24 08:00 Temperature 98.4 F Pulse Rate Pulse Rate [Pulse Oximeter] 87 Respiratory Rate 22 22 Blood Pressure [Ri t Arm] 141/78 H Pulse Oximetry 96 95 Oxygen Delivery Me thod High Flow Nasal Ca nnula High Flow Nasal Ca nnula Oxygen Flow Rate 15 Fraction of Inspir ed Oxygen 40 01/31/24 08:00 01/31/24 08:11 01/31/24 09:21 Temperature Pulse Rate Pulse Rate [Pulse Oximeter] Respiratory Rate Blood Pressure [Ri ght Arm] Pulse Oximetry 96 Oxygen Delivery Me thod Oxygen Flow Rate 15 Fraction of Inspir ed Oxygen 32 32 01/31/24 09:23 01/31/24 11:00 01/31/24 12:00 Temperature 97.6 F Pulse Rate Pulse Rate [Pulse Oximeter] 94 Respiratory Rate 22 Blood Pressure [Ri ght Arm] 166/78 H Pulse Oximetry 96 94 Oxygen Delivery Me thod High Flow Nasal Ca nnula High Flow Nasal Ca nnula Oxygen Flow Rate 15 15 Fraction of Inspir ed Oxygen 32 30 30 01/31/24 12:00 01/31/24 14:00 01/31/24 15:00 Temperature Pulse Rate Pulse Rate [Pulse Oximeter] Respiratory Rate Blood Pressure [Ri ght Arm] Pulse Oximetry 95 97 Oxygen Delivery Me thod High Flow Nasal Ca nnula Oxygen Flow Rate 15 Fraction of Inspir ed Oxygen 30 28 01/31/24 15:00 01/31/24 15:00 01/31/24 16:00 Temperature Pulse Rate 83 Pulse Rate [Pulse Oximeter] 83 Respiratory Rate 20 Blood Pressure [Ri ght Arm] Pulse Oximetry 97 Oxygen Delivery Me thod Oxygen Flow Rate Fraction of Inspir ed Oxygen 01/31/24 16:00 01/31/24 16:11 01/31/24 18:00 Temperature 98.5 F Pulse Rate Pulse Rate [Pulse Oximeter] 83 Respiratory Rate 190 H Blood Pressure [Ri ght Arm] 190/97 H Pulse Oximetry 97 Oxygen Delivery Me thod Room Air Oxygen Flow Rate Fraction of Inspir ed Oxygen 28 01/31/24 20:00 01/31/24 20:00 01/31/24 20:19 Temperature 98.1 F Pulse Rate Pulse Rate [Pulse Oximeter] 84 Respiratory Rate 22 Blood Pressure [Ri ght Arm] 203/98 H Pulse Oximetry 94 98 Oxygen Delivery Me thod High Flow Nasal Ca nnula Oxygen Flow Rate 15 Fraction of Inspir ed Oxygen 28 01/31/24 22:00 01/31/24 22:42 01/31/24 23:00 Temperature 98.8 F Pulse Rate 73 Pulse Rate [Pulse Oximeter] 75 Respiratory Rate 20 Blood Pressure [Ri ght Arm] 179/93 H Pulse Oximetry 96 Oxygen Delivery Me thod High Flow Nasal Ca nnula Oxygen Flow Rate 15 Fraction of Inspir ed Oxygen 28 01/31/24 23:00 01/31/24 23:00 02/01/24 00:00 Temperature Pulse Rate Pulse Rate [Pulse Oximeter] 75 Respiratory Rate 20 20 Blood Pressure [Ri ght Arm] Pulse Oximetry 96 97 Oxygen Delivery Me thod High Flow Nasal Ca nnula Oxygen Flow Rate 15 Fraction of Inspir ed Oxygen 28 02/01/24 00:00 02/01/24 02:45 02/01/24 02:45 Temperature 98.1 F Pulse Rate Pulse Rate [Pulse Oximeter] 72 Respiratory Rate 18 Blood Pressure [Ri ght Arm] 125/66 Pulse Oximetry 93 Oxygen Delivery Me thod High Flow Nasal Ca nnula Oxygen Flow Rate 15 Fraction of Inspir ed Oxygen 02/01/24 04:00 02/01/24 04:00 02/01/24 06:00 Temperature Pulse Rate Pulse Rate [Pulse Oximeter] Respiratory Rate Blood Pressure [Ri ght Arm] Pulse Oximetry 95 Oxygen Delivery Me thod Oxygen Flow Rate Fraction of Inspir ed Oxygen
[2024-02-01 07:56] LABS: HCO3 VBG 30 mmol/L (21-28); PCO2 VBG 51 mmHG (40-50); PO2 VBG 33.8 mmHG (25-47); pH VBG 7.376 (7.32-7.43)
[2024-02-01 07:59] LABS: Eosinophils Percent Auto 0.1 % (0.0-7.0); Hematocrit 36.2 % (33.0-51.0); Hemoglobin* 11.4 gm/dL (12.0-16.0); Immature Granulocytes Pct Auto 1.3 %; Lymphocytes Percent Auto 16.5 % (20-44); Mean Corpuscular HGB Conc 32 gm/dL (32-36); Mean Corpuscular Hemoglobin 31 pg (26-34); Mean Corpuscular Volume 98 fL (80-100); Monocytes Percent Auto 8.7 % (0.0-11.0); Neutrophils Percent Auto 73.4 % (42.0-72.0); Platelet Count* 343 K/uL (140-440); RDW Coefficient of Variation % 12.7 % (11.5-15.5); Red Blood Count 3.69 m/uL (4.00-5.20); White Blood Count* 12.74 K/uL (4.50-11.00)
[2024-02-01 08:01] LABS: Slide Review Reflex No
[2024-02-01 08:12] LABS: Chloride* 104 mmol/L (96-114); Potassium* 4.2 mmol/L (3.6-5.1); Sodium* 138 mmol/L (135-149)
[2024-02-01 08:15] LABS: Anion Gap 6 mEq/L (7-15); Carbon Dioxide* 28 mmol/L (20-32); Creatinine* 0.5 mg/dL (0.5-1.5); Est. Creatinine Clearance* 41.36; Estimated Glomerular Filt Rate 105 ml/min
[2024-02-01] MEDS: IPRAT-ALBUT 0.5-2.5 MG/3 ML NEB 1 NEB IH ×3 (08:15→19:56)
[2024-02-01 08:16] LABS: Blood Urea Nitrogen* 21 mg/dL (7-30); Glucose* 105 mg/dL (60-115)
[2024-02-01] MEDS: ONDANSETRON 2 MG/ML inj 4 MG IVP (08:16)
[2024-02-01] MEDS: predniSONE 20 MG TABLET 40 MG PO (08:16)
[2024-02-01] MEDS: SODIUM CHLORIDE 0.9 % (FLUSH) 10 ML SYRINGE 5 ML IVF ×2 (08:16→21:54)
--- NOTE | 2024-02-01 08:47 | CRLHL7_ITS ---
For Patients: As a result of the Century Cures Act, medical imaging exams and procedure reports are released immediately into your electronic medical record. You may view this report before your referring provider. If you have questions, please contact your health care provider. INDICATION: Follow-up of COVID, hypoxia TECHNIQUE: Chest 1 views. COMPARISON: X-ray chest January 30, 2024 FINDINGS/IMPRESSION: Mild right basilar atelectasis, unchanged. No focal consolidation, effusion or pneumothorax. Cardiac size is within normal limit without pulmonary edema. Dictated by Usman Gregorio MD @ 02/01/2024 9:47:53 AM (Electronically Signed)
[2024-02-01 12:38] LABS: Troponin I* < 0.01 ng/mL (0.01-0.04)
[2024-02-01] MEDS: ACETAMINOPHEN 325 MG TABLET 975 MG PO (17:26)
[2024-02-01] MEDS: OXYCODONE 5 MG TABLET PO ×2 (17:40→21:54)
--- NOTE | 2024-02-01 17:41 | P.CCN_ITS ---
Subjective Subjective Time Seen by Provider: 17:30 Date Seen: 02/01/24 Interval history: Admitted 01/30/2024 for acute hypoxic respiratory failure in the setting of acute COVID infection, with known COPD history. She got out of bed to go to the bathroom and noted acute awareness of heart beat with pounding sensation in back, chest, neck, head. SBP measured at 200 mmHg, much greater than usual. Symptoms resolved after 10-15 minutes of rest and calming. Denies dyspnea, near syncope, nausea. Baseline level of LE edema. She declines use of enoxaparin for VTE prophylaxis. Is agreeable to use NICOLE stockings. Acknowledges history of anxiety episodes. As recently as yesterday she had an episode of hyperventilation with bilateral hand and forearm tingling, which resolved with calming. Objective Objective Data Details: I examine her in her hospital room. She is sitting in her hospital bed with legs crossed. On HF O2. Appears comfortable. No acute distress. Cooperative. Acknowledges anxiety. Lungs are clear to auscultation. Heart tones with regular rhythm, normal S1S2. No murmur, gallop, or rub. PMI not laterally displaced. Abdomen benign. Lower extremities with only trace edema, which she indicates is at baseline. No focal motor deficits. Assessment and Plan Assessment and plan (1) Acute hypoxemic respiratory failure due to COVID-19: Problem comment: - with COPD as comorbidity, on high-flow nasal cannula, RT following - started on Dexamethasone as COVID-specific therapy; transitioned to Prednisone on 01/30 as she felt better relief with Solu-Medrol for symptoms - not a candidate Paxlovid/Remdesivir on admission, as COVID symptoms present for 4-5 days - will repeat CXR 01/31 given increase in WBC (infectious vs demargination from steroids) + R sided rhonchi Status: Acute (2) Headache: Problem comment: - possibly secondary to hypertension or COVID (BP in ER 220/100s) - no acute findings on head CT in ER - prn pain management, BP improved 01/30 Status: Acute (3) Essential hypertension: Problem comment: - Diagnosed 10/24, medication (valsartan-HCTZ) started 10/24, stopped 11/24 due to hypotension/nausea, [facility] started amlodipine and valsartan 04/29 when hospitalized for pneumonia, valsartan changed to valsartan-HCTZ 06/27, but brought back to valsartan alone (due to leg cramps) 09/26 - markedly elevated BP on admission 01/29, improved, continue home Valsartan - Historically tried amlodipine and had bilateral feet and leg cramps - 02/01/2024: SBP 206 mmHg with anxiety episode. Will give single dose of chlorthalidone 12.5 mg now, then start 12.5 mg po every morning Status: Chronic (4) Hyperlipidemia: Problem comment: - LDL 180 05/2008, simvastatin started 08/20, she stopped it herself 02/19, statin restarted 03/24, [facility] changed her simvastatin to atorvastatin 01/22 for occipital ischemic stroke, [facility] increased atorvastatin for LDL 77 04/29 Status: Chronic (5) COPD (chronic obstructive pulmonary disease): Problem comment: - does not appear to have an active COPD exacerbation at this time; transition Dexamethasone to Prednisone 01/30 given better symptom control Status: Chronic (6) Chest discomfort: Problem comment: - noted on admission 01/29, h/o CAD with stable angina - negative chest CT for PE - reassuring EKG, troponin negative x3, continue to monitor on telemetry Status: Acute (7) Coronary artery disease: Problem comment: - per [facility], Dr. Phoenix, 05/24/2023, she has known CAD, presumably on the basis of dense coronary artery calcifications on CT chest, advised to manage stable coronary artery disease with angina with medication, and recommended by Cardiology to consider coronary angiography if symptoms of angina worsen/continue - continue home medications, including ASA Status: Chronic (8) Adjustment disorder with anxious mood: Problem comment: - 02/01/2024: While in hospital, lorazepam 0.5 mg po q 6 hours as needed for anxiety; and, start on melatonin 3 mg q HS (melatonin and midazolam have been shown to have equivalent pre-procedural anti-anxiety effects, so will use with intent to achieve greater anxiety management) Status: Acute Plan - I reviewed my impressions, plans and recokmmendations with Genevieve. Answered her questions to her satisfaction. She is agreeable with above stated impressions, plans and recommendations. Total Time Spent Total Time Spent: 25 minutes
[2024-02-01] MEDS: LORazepam 0.5 MG TABLET PO (18:07)
[2024-02-01] MEDS: CHLORTHALIDONE 25 MG TABLET 12.5 MG PO (18:07)
--- NOTE | 2024-02-01 19:20 | PC.NURSE ---
Shift Note: Pt pleasant and cooperative, able to verbalize her needs. BP's continue to be hypertensive, as high as 207 systolic. Pt also verbalizing a pounding headache and feeling her heartbeat in her head with exertion. Dr. Savana hopkins, chlorthalidone, melatonin, and ativan orded. SpO2 has been 97-100% throughout the day however pt c/o increased dyspnea and work of breathing. Increased HFNC to 20L/28% FIo2. Tele= NSR with occasional PVC's. Denies pain other than intermittent headaches that worsen with movement. She also c/o nausea this morning and received one dose of zofran. Nausea has since resolved and she denies it at this time. Appetite has been adequate, she is eating 25-75% of her meal trays. Pt has been diligent with aerobika use independently.
[2024-02-01] MEDS: ATORVASTATIN CALCIUM 40 MG TABLET 80 MG PO (21:52)
[2024-02-01] MEDS: ASPIRIN EC 325 MG TABLET PO (21:52)
[2024-02-01] MEDS: MELATONIN 3 MG TABLET PO (21:53)
[2024-02-01] MEDS: VALSARTAN 80 MG TABLET 160 MG PO (21:53)
[2024-02-02] VITALS (20 sets, daily range): BP systolic 125–169; BP diastolic 62–94; PULSE 62–84; RESP 14–24; TEMP 36.5–36.9; O2SAT 92–99
[2024-02-02] MEDS: IPRAT-ALBUT 0.5-2.5 MG/3 ML NEB 1 NEB IH ×3 (03:12→21:50)
[2024-02-02] MEDS: ONDANSETRON 2 MG/ML inj 4 MG IVP ×2 (04:16→09:05)
[2024-02-02] MEDS: PROCHLORPERAZINE 5 MG/ML VIAL IV (06:18)
--- NOTE | 2024-02-02 06:30 | PC.NURSE ---
took pt over at 0200. VSS w/ sats >90% on high flow. using NC when up to the bathroom. SOB w/ exertion. denies pain. pt repots consistent nausea. PRN zofran given without relief and now PRN Compazine given. reports intermittent sleep overnight. up at phuc in room.
[2024-02-02 06:48] LABS: HCO3 VBG 29 mmol/L (21-28); PCO2 VBG 45 mmHG (40-50); pH VBG 7.422 (7.32-7.43)
[2024-02-02 06:53] LABS: Eosinophils Percent Auto 0.2 % (0.0-7.0); Hematocrit 34.3 % (33.0-51.0); Hemoglobin* 10.8 gm/dL (12.0-16.0); Immature Granulocytes Pct Auto 2.1 %; Lymphocytes Percent Auto 22.7 % (20-44); Mean Corpuscular HGB Conc 32 gm/dL (32-36); Mean Corpuscular Hemoglobin 31 pg (26-34); Mean Corpuscular Volume 98 fL (80-100); Monocytes Percent Auto 8.3 % (0.0-11.0); Neutrophils Percent Auto 66.7 % (42.0-72.0); Platelet Count* 315 K/uL (140-440); RDW Coefficient of Variation % 12.8 % (11.5-15.5); Red Blood Count 3.49 m/uL (4.00-5.20)
[2024-02-02 07:11] LABS: Slide Review Reflex No
[2024-02-02 07:24] LABS: Potassium* 4.3 mmol/L (3.6-5.1)
[2024-02-02 07:27] LABS: Magnesium* 2.4 mg/dL (1.5-2.6)
[2024-02-02] MEDS: predniSONE 20 MG TABLET 40 MG PO (09:04)
[2024-02-02] MEDS: SODIUM CHLORIDE 0.9 % (FLUSH) 10 ML SYRINGE 5 ML IVF ×2 (09:08→21:50)
--- NOTE | 2024-02-02 09:17 | P.IMPN_ITS ---
Progress Note: A&P Assessment and plan (1) Acute hypoxemic respiratory failure due to COVID-19: Problem details: - with COPD as comorbidity, on high-flow nasal cannula, RT following - started on Dexamethasone as COVID-specific therapy; transitioned to Prednisone on 01/30 as she felt better relief with Solu-Medrol for symptoms - not a candidate Paxlovid/Remdesivir on admission as symptoms present for 4-5 days - repeat CXR 01/31 given increase in WBC (infectious vs demargination from ster oids) + R sided rhonchi: stable, R sided atelectasis Status: Acute (2) Headache: Problem details: - possibly secondary to hypertension or COVID (BP in ER 220/100s) - no acute findings on head CT in ER - prn pain management, added Metoprolol to regimen 02/01 Status: Acute (3) Essential hypertension: Problem details: - Diagnosed 10/24, medication (valsartan-HCTZ) started 10/24, stopped 11/24 due to hypotension/nausea, [facility] started amlodipine and valsartan 04/29 when hospitalized for pneumonia, valsartan changed to valsartan-HCTZ 06/27, but brought back to valsartan alone (due to leg cramps) 09/26 - markedly elevated BP on admission 01/29, improved, we've continued home Valsartan during stay - Historically tried amlodipine and had bilateral feet and leg cramps - 02/01/2024: SBP 206 mmHg with anxiety episode; given single dose of chlorthalidone 12.5 mg - 02/01: added Metoprolol to regimen Status: Chronic (4) Hyperlipidemia: Problem details: - LDL 180 05/2008, simvastatin started 08/20, she stopped it herself 02/19, statin restarted 03/24, [facility] changed her simvastatin to atorvastatin 01/22 for occipital ischemic stroke, [facility] increased atorvastatin for LDL 77 04/29 Status: Chronic (5) COPD (chronic obstructive pulmonary disease): Problem details: - does not appear to have an active COPD exacerbation at this time; transition Dexamethasone to Prednisone 01/30 given better symptom control Status: Chronic (6) Chest discomfort: Problem details: - noted on admission 01/29, h/o CAD with stable angina - negative chest CT for PE - reassuring EKG, troponin negative throughout stay, reassuring telemetry Status: Acute (7) Coronary artery disease: Problem details: - per [facility], Dr. Phoenix, 05/24/2023, she has known CAD, presumably on the basis of dense coronary artery calcifications on CT chest, advised to manage stable coronary artery disease with angina with medication, and recommended by Cardiology to consider coronary angiography if symptoms of angina worsen/continue - continue home medications, including ASA - added Metoprolol to regimen 02/02/24 Status: Chronic (8) Adjustment disorder with anxious mood: Problem details: - 02/01/2024: While in hospital, lorazepam 0.5 mg po q 6 hours as needed for anxiety; and, start on melatonin 3 mg q HS (melatonin and midazolam have been shown to have equivalent pre-procedural anti-anxiety effects, so will use with intent to achieve greater anxiety management) - 02/01: amenable to adding Metoprolol to anti-hypertensive regimen Status: Acute Plan - per above, continue to taper oxygen as tolerated - Karsten hose for ppx (declining Lovenox), Omeprazole, po intake Subjective Date Seen: 02/02/24 Interval history: Genevieve was admitted to the hospital on 01/29 for acute hypoxic respiratory failure in the setting of COVID infection, known COPD history. Remains on high flow oxygen, no hypoxia at rest. RT following. Continues to have dyspnea with exertion, in addition to anxiety. + morning nausea, no vomiting. No other concerns for hospitalist team today. Exam Narrative: Exam Narrative: GEN: Alert and oriented, sitting comfortably in bed and speaking in full sentences HEENT: EOMIs bilaterally, no scleral icterus CV: RRR, No concerning murmurs R: LCTA bilaterally without concerning wheezing, continues to have mild rhonchi right base Ext: + edema, wearing Karsten hose Skin: No concerning skin lesions or rashes on exposed skin Neuro: Nonfocal Psych: Appropriate Const: Vital Signs, click to edit/add: Vital Signs - 24 hr 02/01/24 10:00 02/01/24 11:02/01/24 12:00 Temperature 98 F Pulse Rate Pulse Rate [Pulse Oximeter] 95 Respiratory Rate 22 Blood Pressure [Ri ght Arm] 169/74 H Pulse Oximetry 95 95 Oxygen Delivery Me thod High Flow Nasal Ca nnula Oxygen Flow Rate 20 Fraction of Inspir ed Oxygen 02/01/24 12:00 02/01/24 14:00 02/01/24 15:00 Temperature Pulse Rate Pulse Rate [Pulse Oximeter] Respiratory Rate 22 Blood Pressure [Ri ght Arm] Pulse Oximetry 97 Oxygen Delivery Me thod High Flow Nasal Ca nnula Oxygen Flow Rate 20 Fraction of Inspir ed Oxygen 28 28 28 02/01/24 15:00 02/01/24 15:00 02/01/24 16:00 Temperature Pulse Rate 89 Pulse Rate [Pulse Oximeter] 87 Respiratory Rate 22 Blood Pressure [Ri ght Arm] Pulse Oximetry 97 Oxygen Delivery Me thod Oxygen Flow Rate Fraction of Inspir ed Oxygen 02/01/24 17:14 02/01/24 17:15 02/01/24 19:37 Temperature Pulse Rate 86 Pulse Rate [Pulse Oximeter] 100 Respiratory Rate 24 Blood Pressure [Ri ght Arm] 207/106 H Pulse Oximetry 96 Oxygen Delivery Me thod High Flow Nasal Ca nnula Oxygen Flow Rate 20 15 Fraction of Inspir ed Oxygen 02/01/24 19:53 02/01/24 19:53 02/01/24 20:00 Temperature 97.6 F Pulse Rate Pulse Rate [Pulse Oximeter] 76 Respiratory Rate 24 Blood Pressure [Ri ght Arm] 192/89 H Pulse Oximetry 95 95 Oxygen Delivery Me thod High Flow Nasal Ca nnula Oxygen Flow Rate 20 Fraction of Inspir ed Oxygen 02/01/24 21:00 02/02/24 00:20 02/02/24 00:55 Temperature Pulse Rate 65 Pulse Rate [Pulse Oximeter] Respiratory Rate Blood Pressure [Ri ght Arm] Pulse Oximetry Oxygen Delivery Me thod Oxygen Flow Rate Fraction of Inspir ed Oxygen 02/02/24 00:55 02/02/24 00:55 02/02/24 00:55 Temperature 98.4 F Pulse Rate Pulse Rate [Pulse Oximeter] 68 68 Respiratory Rate 20 20 20 Blood Pressure [Ri ght Arm] 130/68 Pulse Oximetry 95 95 Oxygen Delivery Me thod High Flow Nasal Ca nnula High Flow Nasal Ca nnula Oxygen Flow Rate 20 20 Fraction of Inspir ed Oxygen 28 02/02/24 00:55 02/02/24 03:04 02/02/24 03:09 Temperature 98.1 F Pulse Rate Pulse Rate [Pulse Oximeter] 71 Respiratory Rate 24 Blood Pressure [Ri ght Arm] 130/89 Pulse Oximetry 95 92 Oxygen Delivery Me thod Oxygen Flow Rate Fraction of Inspir ed Oxygen 02/02/24 03:58 02/02/24 05:00 02/02/24 07:00 Temperature Pulse Rate 65 Pulse Rate [Pulse Oximeter] Respiratory Rate Blood Pressure [Ri ght Arm] Pulse Oximetry 94 Oxygen Delivery Me thod Oxygen Flow Rate Fraction of Inspir ed Oxygen 02/02/24 07:00 02/02/24 07:00 02/02/24 07:00 Temperature 98.1 F Pulse Rate Pulse Rate [Pulse Oximeter] 80 Respiratory Rate 24 24 Blood Pressure [Ri ght Arm] 140/94 H Pulse Oximetry 94 94 Oxygen Delivery Me thod High Flow Nasal Ca nnula High Flow Nasal Ca nnula Oxygen Flow Rate 20 20 Fraction of Inspir ed Oxygen 02/02/24 08:00 02/02/24 08:00 Temperature Pulse Rate Pulse Rate [Pulse Oximeter] 84 Respiratory Rate 24 Blood Pressure [Ri ght Arm] Pulse Oximetry 94 Oxygen Delivery Me thod Oxygen Flow Rate Fraction of Inspir ed Oxygen Labs Labs: Laboratory Results - last 24 hr 02/01/24 02/01/24 02/02/24 07:50 12:12 06:14 WBC 12.10 H RBC 3.49 L Hgb 10.8 L Hct 34.3 MCV 98 MCH 31 MCHC 32 RDW Coeff of Amelia 12.8 Plt Count 315 Neut % (Auto) 66.7 Lymph % (Auto) 22.7 [place] % (Auto) 8.3 Eos % (Auto) 0.2 Baso % (Auto) 0.0 Neut # (Auto) 8.10 H Lymph # (Auto) 2.70 [place] # (Auto) 1.00 H Eos # (Auto) 0.00 Baso # (Auto) 0.00 Abs Immat Gran (auto) 0.30 Imm/Tot Granulo (auto) 2.1 VBG pH 7.422 VBG pCO2 45 VBG pO2 158.0 H VBG HCO3 29 H Potassium 4.3 Magnesium 2.4 Troponin I < 0.01 L Lab Acknowledgement Test Added
--- NOTE | 2024-02-02 09:37 | RESP.RT ---
Patient stated that she prefers to have the higher flow as she struggles without the flow. The HFNC will provide more support at 30Lpm and we can be more aggressive in weaning her FiO2 down. She is currently on 25% FiO2 and SATing 94%.
[2024-02-02] MEDS: METOPROLOL TARTRATE 25 MG TABLET PO ×2 (11:42→21:49)
[2024-02-02] MEDS: OMEPRAZOLE 20 MG CAPSULE DR PO (11:42)
[2024-02-02] MEDS: LORazepam 0.5 MG TABLET PO ×2 (14:08→21:52)
[2024-02-02] MEDS: OXYCODONE 5 MG TABLET PO ×2 (14:08→21:52)
--- NOTE | 2024-02-02 16:42 | PC.NURSE ---
Nursing Care Hours: [id number] Pt this shift calm and cooperative, fatigued and oriented. Tolerating high flow. Fine crackles to bilat post lower lobes. Nausea being treated per eMAR. HTN noted without symptoms in the morning. After working with PT, pt became tachypneic, BP around 170's systolic and c/o headache. Treated per eMAR, treatments effective. Independent in room.
[2024-02-02] MEDS: LACTOBACILLUS ACIDOPHILUS 1 TABLET 1 TAB PO (18:02)
[2024-02-02] MEDS: ASPIRIN EC 325 MG TABLET PO (21:49)
[2024-02-02] MEDS: ATORVASTATIN CALCIUM 40 MG TABLET 80 MG PO (21:49)
[2024-02-02] MEDS: MELATONIN 3 MG TABLET PO (21:49)
[2024-02-02] MEDS: VALSARTAN 80 MG TABLET 160 MG PO (21:50)
--- NOTE | 2024-02-02 23:50 | PC.NURSE ---
Pt alert, oriented and vitally stable, though slightly hypertensive. Pt lung sound crackled in upper lobes and diminished in posterior bases. Pt pain rated 5/10, prn oxy and lorazepam given. Pt also had prn duo neb, stated improvement. Pt up independently, tolerates well. Pt call light within reach.
[2024-02-03] VITALS (20 sets, daily range): BP systolic 151–214; BP diastolic 84–102; PULSE 74–90; RESP 18–22; TEMP 36.4–36.8; O2SAT 90–97
[2024-02-03] MEDS: ONDANSETRON ODT 4 MG TAB PO (02:51)
[2024-02-03 06:39] LABS: Hemoglobin* 11.5 gm/dL (12.0-16.0)
[2024-02-03] MEDS: OMEPRAZOLE 20 MG CAPSULE DR PO ×2 (06:44→21:02)
[2024-02-03] MEDS: PROCHLORPERAZINE 5 MG/ML VIAL IV ×2 (06:51→21:01)
--- NOTE | 2024-02-03 07:23 | PC.NURSE ---
Pt alert and oriented x3. Afebrile. Pt denies pain. Pt reports nausea w/o emesis, managed with PRN Zofran. Pt is on 0.5L O2 when up to bathroom and when needed a break from high flow nasal cannula. Pt?s O2 stats have been ranging between 90-100% throughout night. Pt is up ad phuc, voiding and tolerating a regular diet.?
[2024-02-03] MEDS: METOPROLOL TARTRATE 25 MG TABLET PO ×2 (09:36→21:02)
[2024-02-03] MEDS: LACTOBACILLUS ACIDOPHILUS 1 TABLET 1 TAB PO ×3 (09:36→17:49)
[2024-02-03] MEDS: predniSONE 20 MG TABLET 40 MG PO (09:36)
[2024-02-03] MEDS: ONDANSETRON 2 MG/ML inj 4 MG IVP ×2 (09:37→17:56)
[2024-02-03] MEDS: SODIUM CHLORIDE 0.9 % (FLUSH) 10 ML SYRINGE 5 ML IVF ×3 (09:37→21:01)
[2024-02-03] MEDS: LORazepam 0.5 MG TABLET PO ×2 (09:40→16:35)
--- NOTE | 2024-02-03 10:23 | PM.IMPN1 ---
Progress Note: A&P Assessment and plan (1) Acute hypoxemic respiratory failure due to COVID-19: Problem details: - with COPD as comorbidity, on high-flow nasal cannula, RT following - started on Dexamethasone as COVID-specific therapy; transitioned to Prednisone on 01/30 as she felt better relief with Solu-Medrol for symptoms - not a candidate Paxlovid/Remdesivir on admission as symptoms present for 4-5 days - repeat CXR 01/31 given increase in WBC (infectious vs demargination from steroids) + R sided rhonchi: stable, R sided atelectasis Status: Acute (2) Headache: Problem details: - possibly secondary to hypertension or COVID (BP in ER 220/100s) - no acute findings on head CT in ER - prn pain management, added Metoprolol to regimen 02/01 - resolved during stay Status: Acute (3) Essential hypertension: Problem details: - Diagnosed 10/24, medication (valsartan-HCTZ) started 10/24, stopped 11/24 due to hypotension/nausea, [facility] started amlodipine and valsartan 04/29 when hospitalized for pneumonia, valsartan changed to valsartan-HCTZ 06/27, but brought back to valsartan alone (due to leg cramps) 09/26 - markedly elevated BP on admission 01/29, improved, we've continued home Valsartan during stay - Historically tried amlodipine and had bilateral feet and leg cramps - 02/01/2024: SBP 206 mmHg with anxiety episode; given single dose of chlorthalidone 12.5 mg - 02/01: added Metoprolol to regimen Status: Chronic (4) Hyperlipidemia: Problem details: - LDL 180 05/2008, simvastatin started 08/20, she stopped it herself 02/19, statin restarted 03/24, [facility] changed her simvastatin to atorvastatin 01/22 for occipital ischemic stroke, [facility] increased atorvastatin for LDL 77 04/29 Status: Chronic (5) COPD (chronic obstructive pulmonary disease): Problem details: - does not appear to have an active COPD exacerbation at this time; transition Dexamethasone to Prednisone 01/30 given better symptom control Status: Chronic (6) Chest discomfort: Problem details: - noted on admission 01/29, h/o CAD with stable angina - negative chest CT for PE - reassuring EKG, troponin negative throughout stay, reassuring telemetry Status: Acute (7) Coronary artery disease: Problem details: - per [facility], Dr. Phoenix, 05/24/2023, she has known CAD, presumably on the basis of dense coronary artery calcifications on CT chest, advised to manage stable coronary artery disease with angina with medication, and recommended by Cardiology to consider coronary angiography if symptoms of angina worsen/continue - continue home medications, including ASA - added Metoprolol to regimen 02/02/24 Status: Chronic (8) Adjustment disorder with anxious mood: Problem details: - 02/01/2024: While in hospital, lorazepam 0.5 mg po q 6 hours as needed for anxiety; and, start on melatonin 3 mg q HS (melatonin and midazolam have been shown to have equivalent pre-procedural anti-anxiety effects, so will use with intent to achieve greater anxiety management) - 02/01: amenable to adding Metoprolol to anti-hypertensive regimen Status: Acute (9) Nausea: Problem details: - morning, no postprandial symptoms, no chest pain, reassuring troponin and telemetry - continue PPI, probiotics, anti-emetics Status: Acute Plan - per above - Teds, ASA, Lovenox for ppx - potentially home 1-2 days if continues to taper off of O2 well Subjective Date Seen: 02/03/24 Interval history: Genevieve was admitted to the hospital on 01/29 for acute hypoxic respiratory failure in the setting of COVID infection, known history of COPD. Has been able to slowly taper oxygen, continues to have hypoxia with activity. RT following. On Prednisone 40mg (day 4/5). Primary concerning symptom at this time is morning nausea. No vomiting, no postprandial symptoms. No chest pain. On PPI, probiotics. Exam Narrative: Exam Narrative: GEN: Alert and oriented, nontoxic. Speaking in full sentences HEENT: EOMIs bilaterally, no scleral icterus CV: RRR R: Air movement adequate, no wheezing or rhonchi, R base cleared Ext: + Karsten hose Skin: No concerning skin lesions or rashes on exposed skin Neuro: Nonfocal Psych: Appropriate Const: Vital Signs, click to edit/add: Vital Signs - 24 hr 02/02/24 11:00 02/02/24 11:00 02/02/24 12:00 Temperature 97.9 F Pulse Rate Pulse Rate [Pulse Oximeter] 68 Respiratory Rate 14 Blood Pressure [Ri ght Arm] 153/89 H Pulse Oximetry 92 92 Oxygen Delivery Me thod High Flow Nasal Ca nnula Oxygen Flow Rate Fraction of Inspir ed Oxygen 25 02/02/24 13:00 02/02/24 15:00 02/02/24 15:00 Temperature Pulse Rate Pulse Rate [Pulse Oximeter] Respiratory Rate 18 Blood Pressure [Ri ght Arm] Pulse Oximetry 94 Oxygen Delivery Me thod High Flow Nasal Ca nnula Oxygen Flow Rate 30 Fraction of Inspir ed Oxygen 25 25 25 02/02/24 15:57 02/02/24 16:00 02/02/24 16:00 Temperature 97.7 F Pulse Rate Pulse Rate [Pulse Oximeter] 82 82 Respiratory Rate 18 18 Blood Pressure [Ri ght Arm] 152/78 H Pulse Oximetry 94 94 Oxygen Delivery Me thod High Flow Nasal Ca nnula Oxygen Flow Rate 30 Fraction of Inspir ed Oxygen 25 02/02/24 16:23 02/02/24 17:00 02/02/24 19:00 Temperature Pulse Rate 67 Pulse Rate [Pulse Oximeter] Respiratory Rate Blood Pressure [Ri ght Arm] Pulse Oximetry Oxygen Delivery Me thod Oxygen Flow Rate Fraction of Inspir ed Oxygen 25 25 02/02/24 19:00 02/02/24 20:00 02/02/24 21:00 Temperature 97.7 F Pulse Rate Pulse Rate [Pulse Oximeter] 76 Respiratory Rate 18 Blood Pressure [Ri ght Arm] 169/87 H Pulse Oximetry 97 94 Oxygen Delivery Me thod High Flow Nasal Ca nnula Oxygen Flow Rate 30 Fraction of Inspir ed Oxygen 25 25 02/02/24 23:34 02/02/24 23:34 02/02/24 23:34 Temperature 97.7 F Pulse Rate 62 Pulse Rate [Pulse Oximeter] 63 Respiratory Rate 18 18 Blood Pressure [Ri ght Arm] 125/62 Pulse Oximetry 99 99 Oxygen Delivery Me thod Nasal Cannula High Flow Nasal Cannul a Nasal Cannula Oxygen Flow Rate 2 2 Fraction of Inspir ed Oxygen 02/02/24 23:34 02/02/24 23:34 02/03/24 02:13 Temperature Pulse Rate Pulse Rate [Pulse Oximeter] Respiratory Rate 18 Blood Pressure [Ri ght Arm] Pulse Oximetry 99 Oxygen Delivery Me thod Oxygen Flow Rate Fraction of Inspir ed Oxygen 25 02/03/24 02:13 02/03/24 03:56 02/03/24 05:00 Temperature 97.9 F Pulse Rate Pulse Rate [Pulse Oximeter] 74 Respiratory Rate 18 Blood Pressure [Ri ght Arm] 175/86 H Pulse Oximetry 93 97 Oxygen Delivery Me thod Nasal Cannula Oxygen Flow Rate 0.5 Fraction of Inspir ed Oxygen 25 02/03/24 07:14 02/03/24 07:45 02/03/24 09:29 Temperature 97.8 F Pulse Rate 77 Pulse Rate [Pulse Oximeter] 78 Respiratory Rate 18 Blood Pressure [Ri ght Arm] 166/102 H Pulse Oximetry 97 Oxygen Delivery Me thod High Flow Nasal Ca nnula Oxygen Flow Rate 0.5 Fraction of Inspir ed Oxygen 25 21 02/03/24 09:30 02/03/24 09:48 02/03/24 09:48 Temperature Pulse Rate Pulse Rate [Pulse Oximeter] Respiratory Rate 18 Blood Pressure [Ri ght Arm] Pulse Oximetry 97 96 Oxygen Delivery Me thod High Flow Nasal Ca nnula Oxygen Flow Rate 30 Fraction of Inspir ed Oxygen 21 21 Labs Labs: Laboratory Results - last 24 hr 02/03/24 06:03 Hgb 11.5 L
[2024-02-03] MEDS: IPRAT-ALBUT 0.5-2.5 MG/3 ML NEB 1 NEB IH ×2 (16:38→21:01)
--- NOTE | 2024-02-03 18:14 | PC.NURSE ---
Pt alert and oriented. Pt had no complaints of pain. Pt pleasant and cooperative. Pt slept on and off throughout shift. Pt on high flow at 30,21,36 for pressure support; Pt on nasal cannula intermittently with ambulation at two liters. Pt ambulated in hallway on room air oxygen saturations dropped to low to mid 80?s per RT Pt placed on 2 Liters. Pt has SOB and chest tightness with ambulation. Per RT oxygen saturations 88% and higher are acceptable. Pt?s blood pressure midafternoon was 214/91; Hospitalist notified no further intervention at this point. Pt went for a second walk this early evening. Pt was on 1 Liter via nasal cannula and tolerated well with saturations 90-95%; Pt did feel SOB. Nebulizer treatment given prior to second walk. Per RT Pt to be on one Liter via nasal cannula when walking and either be on RA or on High flow with settings 30,21,36 for pressure support.?
[2024-02-03] MEDS: ATORVASTATIN CALCIUM 40 MG TABLET 80 MG PO (21:02)
[2024-02-03] MEDS: ASPIRIN EC 325 MG TABLET PO (21:02)
[2024-02-03] MEDS: MELATONIN 3 MG TABLET PO (21:02)
[2024-02-03] MEDS: VALSARTAN 80 MG TABLET 160 MG PO (21:06)
[2024-02-04] VITALS (10 sets, daily range): BP systolic 139–208; BP diastolic 74–101; PULSE 69–93; RESP 16–20; TEMP 36.4–36.7; O2SAT 90–96
--- NOTE | 2024-02-04 07:34 | PC.NURSE ---
Pt alert and oriented x3. Afebrile. Pt denies pain. Pt reports nausea w/o emesis, managed with PRN medications. Pt on and off High flow nasal cannula throughout night. Pt?s O2 stats have been ranging between 88-94% throughout night. Pt is up ad phuc, voiding and tolerating a regular diet.?
[2024-02-04] MEDS: LACTOBACILLUS ACIDOPHILUS 1 TABLET 1 TAB PO ×2 (09:09→11:44)
[2024-02-04] MEDS: LORazepam 0.5 MG TABLET PO (09:09)
[2024-02-04] MEDS: METOPROLOL TARTRATE 25 MG TABLET PO (09:09)
[2024-02-04] MEDS: OMEPRAZOLE 20 MG CAPSULE DR PO (09:09)
[2024-02-04] MEDS: predniSONE 20 MG TABLET 40 MG PO (09:09)
[2024-02-04] MEDS: IPRAT-ALBUT 0.5-2.5 MG/3 ML NEB 1 NEB IH ×2 (09:10→12:35)
[2024-02-04] MEDS: SODIUM CHLORIDE 0.9 % (FLUSH) 10 ML SYRINGE 5 ML IVF (09:10)
--- NOTE | 2024-02-04 10:46 | P.DS_ITS ---
DS: Providers Provider Date Seen: 02/04/24 Date of admission: 01/30/24 16:30 Primary care physician: Rupali Tate MD Admitting Clinician: Deniz Yi MD Consults: RT, PT Attending Physician on discharge: Luda Sullivan MD Date of Discharge: 02/04/24 DS: Diagnosis Discharge Diagnosis (1) Nausea: Status: Acute Problem details: - primarily in the morning, no postprandial symptoms, no chest pain, reassuring troponin and telemetry - treated with PPI, probiotics, anti-emetics (2) Acute hypoxemic respiratory failure due to COVID-19: Status: Acute Problem details: - with COPD as comorbidity, required high-flow nasal cannula, RT followed during stay - started on Dexamethasone as COVID-specific therapy; transitioned to Prednisone on 01/30 as she felt better relief with Solu-Medrol for symptoms - sick for 3-5 days prior to admission, did not meet criteria for Remdesivir/Paxlovid (3) Headache: Status: Acute Problem details: - possibly secondary to hypertension or COVID (BP in ER 220/100s) - no acute findings on head CT in ER - prn pain management, added Metoprolol to regimen 02/01 - resolved during stay (4) COPD (chronic obstructive pulmonary disease): Status: Chronic Problem details: - does not appear to have an active COPD exacerbation at this time; transition Dexamethasone to Prednisone 01/30 given better symptom control - discharge home on long taper (5) Essential hypertension: Status: Chronic Problem details: - Diagnosed 10/24, medication (valsartan-HCTZ) started 10/24, stopped 11/24 due to hypotension/nausea, Sharma started amlodipine and valsartan 04/29 when hospitalized for pneumonia, valsartan changed to valsartan-HCTZ 06/27, but brought back to valsartan alone (due to leg cramps) 09/26 - markedly elevated BP on admission 01/29, improved, we've continued home Valsartan during stay - Historically tried amlodipine and had bilateral feet and leg cramps - 02/01/2024: SBP 206 mmHg with anxiety episode; given single dose of chlorthalidone 12.5 mg - 02/01: added Metoprolol to regimen (6) Chest discomfort: Status: Acute Problem details: - noted on admission 01/29, h/o CAD with stable angina - negative chest CT for PE - reassuring EKG, troponin negative throughout stay, reassuring telemetry, symptoms resolved DS: Summary Hospital Course Hospital Course: Genevieve was admitted to the hospital on 01/29 for acute hypoxic respiratory failure in the setting of COVID infection, known history of COPD. Initially required high-flow oxygen, was able to taper throughout stay, stable on room air on day of discharge. Followed by RT. Treated with prednisone, long taper upon discharge. Other notable findings during stay, above. Morning nausea had improved and patient medically appropriate for d/c home on 02/04/24. Status at Discharge Functional status at discharge: independent ambulation Overall status at discharge: patient is progressing back to baseline Time Spent with Patient Time attestation: Total time spent providing and/or coordinating discharge services: Time spent: Greater than 30 minutes Specific discharge activities: Medication reconciliation Exam Narrative: Exam Narrative: GEN: Alert and oriented, nontoxic HEENT: EOMIs bilaterally, no scleral icterus CV: RRR, No concerning murmurs R: No wheezing, air movement improved, no rhonchi Ext: +LE edema, wearing Karsten hose Skin: No concerning skin lesions or rashes on exposed skin Neuro: Nonfocal Psych: Appropriate Const: Vital Signs, click to edit/add: Vital Signs - 24 hr 02/03/24 12:57 02/03/24 12:57 02/03/24 13:00 Temperature 98.3 F Pulse Rate Pulse Rate [Pulse Oximeter] 82 Respiratory Rate 18 Blood Pressure [Ri t Arm] 151/85 H Pulse Oximetry 95 95 Oxygen Delivery Me thod High Flow Nasal Ca nnula Oxygen Flow Rate 30 Fraction of Inspir ed Oxygen 21 21 02/03/24 14:15 02/03/24 14:36 02/03/24 15:43 Temperature Pulse Rate 86 Pulse Rate [Pulse Oximeter] Respiratory Rate Blood Pressure [Ri ght Arm] Pulse Oximetry Oxygen Delivery Me thod Oxygen Flow Rate 30 Fraction of Inspir ed Oxygen 21 0.21 02/03/24 16:23 02/03/24 16:26 02/03/24 16:26 Temperature 97.9 F Pulse Rate Pulse Rate [Pulse Oximeter] 82 Respiratory Rate 18 18 Blood Pressure [Ri ght Arm] 214/91 H Pulse Oximetry 96 96 95 Oxygen Delivery Me thod Nasal Cannula Nasal Cannula Oxygen Flow Rate 2 2 Fraction of Inspir ed Oxygen 02/03/24 17:50 02/03/24 17:50 02/03/24 20:12 Temperature 98.1 F Pulse Rate Pulse Rate [Pulse Oximeter] 84 Respiratory Rate 18 Blood Pressure [Ri ght Arm] 186/102 H 156/85 H Pulse Oximetry 90 Oxygen Delivery Me thod Oxygen Flow Rate Fraction of Inspir ed Oxygen 0.21 02/03/24 21:00 02/03/24 21:32 02/03/24 22:02 Temperature 97.6 F Pulse Rate 77 Pulse Rate [Pulse Oximeter] 90 Respiratory Rate 22 Blood Pressure [Ri ght Arm] 191/84 H Pulse Oximetry 90 93 Oxygen Delivery Me thod Nasal Cannula Oxygen Flow Rate Fraction of Inspir ed Oxygen 02/03/24 22:02 02/04/24 00:00 02/04/24 01:00 Temperature Pulse Rate Pulse Rate [Pulse Oximeter] Respiratory Rate Blood Pressure [Ri ght Arm] Pulse Oximetry 90 90 Oxygen Delivery Me thod Room Air Oxygen Flow Rate Fraction of Inspir ed Oxygen 21 02/04/24 02:00 02/04/24 03:17 02/04/24 05:00 Temperature 98.0 F Pulse Rate Pulse Rate [Pulse Oximeter] 93 Respiratory Rate 16 Blood Pressure [Ri ght Arm] 143/74 H Pulse Oximetry 90 92 Oxygen Delivery Me thod Room Air Oxygen Flow Rate Fraction of Inspir ed Oxygen 21 02/04/24 07:00 02/04/24 09:00 02/04/24 09:00 Temperature Pulse Rate 69 Pulse Rate [Pulse Oximeter] Respiratory Rate Blood Pressure [Ri ght Arm] Pulse Oximetry 94 95 Oxygen Delivery Me thod Room Air Oxygen Flow Rate 0 Fraction of Inspir ed Oxygen 02/04/24 09:05 Temperature 97.9 F Pulse Rate Pulse Rate [Pulse Oximeter] 71 Respiratory Rate 20 Blood Pressure [Ri ght Arm] 208/101 H Pulse Oximetry 94 Oxygen Delivery Me thod Room Air Oxygen Flow Rate Fraction of Inspir ed Oxygen Discharge Plan Discharge Disposition: Home, Self-Care Date of Admission: 01/30/24 16:30 Attending Provider on Discharge: Luda Sullivan Primary Care Provider: Rupali Tate Condition: Improved Anticipated Discharge Date/Time: 02/04/24 10:33 Discharge Medications: New ipratropium-albuterol 0.5 mg-3 mg(2.5 mg base)/3 mL Solution For Nebulization 3 ml inhalation Q4H PRNQty: 180 0RF lorazepam 0.5 mg Tablet 0.5 mg PO Q6H PRNQty: 14 0RF ondansetron 4 mg Tablet,Disintegrating 4 mg PO Q6H PRNQty: 20 0RF metoprolol tartrate 25 mg Tablet 25 mg PO BID Qty: 180 0RF fluticasone furoate-vilanterol [Breo Ellipta] 100-25 mcg/dose blister with device 1 inh inhalation DAILY Qty: 60 0RF prednisone 10 mg tablet 10 mg PO DIRECTED 12 Days Qty: 17 0RF Rx Instructions: 2 tabs daily x5d, then 1 tab daily x7d Continued aspirin 325 mg tablet,delayed release (DR/EC) 325 mg PO HS atorvastatin 80 mg tablet 80 mg PO HS nitroglycerin 0.4 mg tablet, sublingual 0.4 mg sublingual Q5M PRN (Reason: angina) ipratropium-albuterol 0.5 mg-3 mg(2.5 mg base)/3 mL solution for nebulization 3 ml inhalation Q6H PRN valsartan 160 mg tablet 160 mg PO HS albuterol sulfate 90 mcg/actuation HFA aerosol inhaler 2 puff inhalation Q6H PRN (Reason: shortness of breath or wheezing) Qty: 8.5 3RF Discharge Orders: Discharge Order (Routine); Ordered 02/04/24 Ordered By: Luda Sullivan Patient Education: Lorazepam (By mouth), Ipratropium (By breathing), Ondansetron (By mouth), Fluticasone (By breathing), Prednisolone (By mouth), COVID-19 (Coronavirus Disease 2019) (DC) Additional Instructions: Prednisone taper and nebs at pharmacy. New Breo Rx there as well (per [employer] website, should only be $35) Continue new Rx of Metoprolol BID, check BP once/day and bring numbers to f/u appt with Dr. Tate (may need to bump up Metoprolol dosing). Off of work for at least one more week. Activity Level: No strenuous activity Discharge Diet: Regular Follow Up Appointments: Rupali Tate MD [Primary Care Provider] - 02/08/24 11:00 am ([facility] for hospital follow-up.) Forms: [facility] Info Instructions
[2024-02-04] MEDS: ONDANSETRON ODT 4 MG TAB PO (11:44)
--- NOTE | 2024-02-04 13:01 | PC.NURSE ---
Pt alert and oriented. Pt had no complaints of pain. Pt up for walk in hallways and maintained oxygen saturations 92-95% on RA. Pt's IV removed; catheter intact. Pt discharged home.
== END 2024-02-04 12:57 | disposition home or self-care (01) | DRG 177 ==
LOC: ED 13:41 → MEDSURG 15:29
PROVIDERS: Family Medicine; Internal Medicine; Admitting Provider Family Medicine; Emergency Provider Emergency Medicine; PCP Internal Medicine; Visit Provider Family Medicine
DX: U07.1 COVID-19 (principal); J12.82 Pneumonia due to coronavirus disease 2019; J96.01 Acute respiratory failure with hypoxia; J44.0 Chronic obstructive pulmonary disease with (acute) lower respiratory infection; Z87.01 Personal history of pneumonia (recurrent); R07.9 Chest pain, unspecified; I65.29 Occlusion and stenosis of unspecified carotid artery; I25.10 Atherosclerotic heart disease of native coronary artery without angina pectoris; I10 Essential (primary) hypertension; I71.40 Abdominal aortic aneurysm, without rupture, unspecified; Z86.73 Personal history of transient ischemic attack (TIA), and cerebral infarction without residual deficits; F43.22 Adjustment disorder with anxiety; R51.9 Headache, unspecified; R11.0 Nausea; F32.9 Major depressive disorder, single episode, unspecified; Z87.891 Personal history of nicotine dependence; E78.5 Hyperlipidemia, unspecified
CPT/HCPCS: 36415; 70450; 71045; 71275; 80048; 82803; 83605; 83735; 83880; 84132; 84484; 85018; 85025; 85379; 85610; 93005; 94664; 94761; 97110; 97116; 97162; 99284; 99285; A9270; J0780; J1171; J1885; J2405; J2919; J7512; Q9967

== ENCOUNTER 2024-02-20 19:37 | Emergency (ER) | payer OTHER, SELFPAY ==
[2024-02-20 19:46] VITALS: BP 181/87; PULSE 93; RESP 20; TEMP 37.1; O2SAT 94; BMI 39.3
--- NOTE | 2024-02-20 20:05 | CRLHL7_ITS ---
For Patients: As a result of the Century Cures Act, medical imaging exams and procedure reports are released immediately into your electronic medical record. You may view this report before your referring provider. If you have questions, please contact your health care provider. INDICATION: Shortness of breath. TECHNIQUE: Chest 2 views. COMPARISON: 02/01/2024. FINDINGS: Cardiovascular and mediastinum: Stable cardiomediastinal silhouette. Aortic knob calcifications. Lungs and pleural spaces: Right basilar atelectasis. No new consolidation. No pleural effusions or pneumothorax. Bones and soft tissues: No significant findings. IMPRESSION: Right basilar atelectasis. No new consolidation. Dictated by Javon Stuart MD @ 02/20/2024 9:18:51 PM (Electronically Signed)
--- NOTE | 2024-02-20 20:06 | ED.SOB ---
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 She came to work today and was rather short of breath when ambulating in. Her oximetry with that exertion was at 88% on room air. She came then to the emergency department for further evaluation. Oximetry here is 94% on room air and other vital signs are normal. The patient was hospitalized about 3 weeks ago for COVID pneumonia. At that time she had blood work and CT imaging done. She finished a steroid 4 days ago. She does not report any fevers or chest pain. She feels normal at rest but does state that she has been coughing more recently. Related Data Home Medications ?Medication ?Instructions ?Recorded ?Confirmed aspirin 325 mg tablet,delayed 325 mg PO HS 02/10/22 02/20/24 release atorvastatin 80 mg tablet 80 mg PO HS 05/04/23 02/20/24 nitroglycerin 0.4 mg sublingual 0.4 mg sublingual Q5M PRN angina 09/18/23 02/08/24 tablet ipratropium 0.5 mg-albuterol 3 mg 3 ml inhalation Q6H PRN 10/24/23 02/08/24 (2.5 mg base)/3 mL nebulization soln valsartan 160 mg tablet 160 mg PO HS 01/30/24 02/20/24 Previous Rx's ?Medication ?Instructions ?Recorded fluticasone furoate 100 1 inh inhalation DAILY #60 ea 02/04/24 mcg-vilanterol 25 mcg/dose inhalation powder (Breo Ellipta) ipratropium 0.5 mg-albuterol 3 mg 3 ml inhalation Q4H PRN #180 mL 02/04/24 (2.5 mg base)/3 mL nebulization soln lorazepam 0.5 mg tablet 0.5 mg PO Q6H PRN #14 tabs 02/04/24 metoprolol tartrate 25 mg tablet 25 mg PO BID #180 tabs 02/04/24 ondansetron 4 mg disintegrating 4 mg PO Q6H PRN #20 tabs 02/04/24 tablet albuterol sulfate 90 mcg/actuation 2 puff inhalation Q6H PRN 02/06/24 aerosol inhaler shortness of breath or wheezing #8.5 grams methylprednisolone 4 mg tablets in See Rx Instructions PO .COMPLEX 02/20/24 a dose pack (Medrol (Héctor)) #21 ea Allergies Allergy/AdvReac Type Severity Reaction Status Date / Time Penicillins Allergy Severe swollen Verified 02/20/24 19:50 legs Sulfa (Sulfonamide Allergy Severe Hives Verified 02/20/24 19:50 Antibiotics) Review of Systems Status of ROS: Reports: 10 or more systems reviewed and unremarkable except as noted in History and below Narrative: Constitutional: No fevers, no weight gain or loss. Eyes: No discharge. No vision changes. HENT: No congestion, no sore throat, no ear pain. Cardiovascular: No chest pain, no palpitations. Respiratory: Cough and shortness of breath with exertion. Gastrointestinal: No abdominal pain, no vomiting, no diarrhea. Genitourinary: No dysuria, no hematuria. Musculoskeletal: Normal range of motion. Skin: No rashes, no pruritis. Neurological: No dizziness, weakness, sensory change, speech change. Endo/Heme/Allergies: No bruising or bleeding. No polydipsia. Pysch: no suicidality, no anxiety, no insomnia. All other systems reviewed and are negative. 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 Former smoker, quit 04/2023. Denies EtOH or recreational drug use. DNR/DNI. What is your current living situation?: I presently have a place to live Problems where you live: no known problems Problems where you live details: n/a In the past 12 months, utilities in danger of being shut off: no In the past 12 mos, have been you worried that your food would run out before you had money to buy more?: never true In the past 12 mos, the food you bought just didn't last and you didn't have money to buy more?: never true Highest level of school completed/degree received: Associate degree: academic program Smoking Status: Former smoker Do you use any of these nicotine containing products: None Second hand tobacco smoke exposure: No How often do you have a drink containing alcohol: monthly or less How many standard drinks containing alcohol do you have on a typical day: 1 or 2 How often do you have six or more drinks on one occasion: Never AUDIT-C Alcohol total score: 1 Non-prescribed substance use: denies use Caffeine: Yes (diet pepsi daily) How often does anyone, including family, friends and others, physically hurt you: never How often does anyone, including family, friends and others, insult or talk down to you: never How often does anyone, including family, friends and others, threaten you with harm: never How often does anyone, including family, friends and others, scream or curse at you: never service: No Exam Narrative: Exam Narrative: Constitutional: Well-developed, well-nourished, no acute distress. HEENT: Normocephalic, atraumatic. Neck: Normal range of motion. Nontender. Supple. Heart: Regular. No murmurs. Normal rate. Intact distal pulses. Lungs: Clear to auscultation. No chest discomfort. No wheezes, rhonchi, or rales. Abdomen: Normal bowel sounds. Nontender. No rebound tenderness. Genitalia: Deferred. Back: No midline tenderness. Normal range of motion. Extremities: Normal range of motion. No injury. Skin: Intact. No rash. Warm. No erythema or pallor. Neurologic: No altered sensation. No weakness. Alert and oriented. Psychiatric: No suicidality. No anxiety or depression. No insomnia. Nursing notes and vitals signs are reviewed. Const: Vital Signs, click to edit/add: Vital Signs - 24 hr 02/20/24 19:46 02/20/24 20:31 Temperature 98.7 F Pulse Rate [Pulse Oximeter] 93 Respiratory Rate 20 Blood Pressure [Ri ght Upper Arm] 181/87 H 143/72 H Pulse Oximetry 94 Oxygen Delivery Me thod Room Air Course Vital Signs Vital signs: Initial Vital Signs Temperature 98.7 F 02/20/24 19:46 Temperature Source Temporal Artery Scan 02/20/24 19:46 Pulse Rate 93 02/20/24 19:46 Respiratory Rate 20 02/20/24 19:46 Blood Pressure 181/87 H 02/20/24 19:46 Blood Pressure Mean 118 H 02/20/24 19:46 Blood Pressure Position Sitting 02/20/24 19:46 Pulse Oximetry 94 02/20/24 19:46 Oxygen Delivery Method Room Air 02/20/24 19:46 Vital Signs Temperature 98.7 F 02/20/24 19:46 Pulse Rate 93 02/20/24 19:46 Respiratory Rate 20 02/20/24 19:46 Blood Pressure 181/87 H 02/20/24 19:46 Pulse Oximetry 94 02/20/24 19:46 Oxygen Delivery Method Room Air 02/20/24 19:46 Temperature 98.7 F 02/20/24 19:46 Pulse Rate 93 02/20/24 19:46 Respiratory Rate 20 02/20/24 19:46 Blood Pressure 143/72 H 02/20/24 20:31 Pulse Oximetry 94 02/20/24 19:46 Oxygen Delivery Method Room Air 02/20/24 19:46 Medications Administered Medications: Generic Name Dose Route Start Last Admin Trade Name Oscarq PRN Reason Stop Dose Admin Dexamethasone 10 mg 02/20/24 21:31 02/20/24 21:48 Dexamethasone 4 Mg/Ml Vial IV 02/20/24 21:32 10 mg ONCE ONE Administration MDM - SOB/Dyspnea MDM Narrative Medical decision making narrative: This patient was diagnosed with COVID about 3 weeks ago and was doing much better until today. She noted significant shortness of breath when ambulating into work. She has been coughing some. She does not report any fevers. On arrival here to the emergency department her oximetry on room air is at 94%. She has not having any symptoms while at rest. Chest x-ray is obtained which shows no acute findings. There is some atelectasis present in the right lung base. Lab results also returned with reassuring findings. The patient finished her steroid course about 4 days ago and this may be contributing to some of her symptoms however there is yet some suspicion of a secondary infection with worsening symptoms after feeling significantly better. She is okay to be discharged home. I did provide prescriptions for Medrol Dosepak and Zithromax. Zithromax came from the [employer] machine and the steroid from her preferred pharmacy. She also received an IV dose of dexamethasone 10 mg here. Lab Data Labs: Lab Results 02/20/24 Range/Units 21:42 WBC 7.79 (4.50-11.00) K/uL RBC 3.58 L (4.00-5.20) m/uL Hgb 11.1 L (12.0-16.0) gm/dL Hct 35.1 (33.0-51.0) % MCV 98 (80-100) fL MCH 31 (26-34) pg MCHC 32 (32-36) gm/dL RDW Coeff of Amelia 13.2 (11.5-15.5) % Plt Count 266 (140-440) K/uL Neut % (Auto) 66.4 (42.0-72.0) % Lymph % (Auto) 20.4 (20-44) % [place] % (Auto) 9.5 (0.0-11.0) % Eos % (Auto) 2.8 (0.0-7.0) % Baso % (Auto) 0.6 (0.0-3.0) % Neut # (Auto) 5.17 (1.7-7.0) K/uL Lymph # (Auto) 1.59 (0.90-2.90) K/uL [place] # (Auto) 0.70 (0.00-0.90) K/UL Eos # (Auto) 0.22 (0.00-0.50) K/uL Baso # (Auto) 0.05 (0.00-0.30) K/uL Abs Immat Gran (auto) 0.02 (0.00-0.30) K/uL Imm/Tot Granulo (auto) 0.3 % VBG pH 7.369 (7.32-7.43) VBG pCO2 48 (40-50) mmHG VBG pO2 39.0 (25-47) mmHG VBG HCO3 28 (21-28) mmol/L Imaging Data Chest x-ray: Radiologist's impression: Right basilar atelectasis. No new consolidation. ECG Data Attestation: I personally reviewed and interpreted this ECG as follows: Interpretation: Normal sinus rhythm. Rate is 82 beats per minute. There are no ST or T-wave abnormalities. Discharge Plan Discharge Clinical Impression: Lower resp. tract infection Patient Disposition: Home, Self-Care Condition: Stable Additional Instructions: Take medications as prescribed. Activity as tolerated. Follow up with MD return if worsening. Prescriptions: New methylprednisolone [Medrol (Héctor)] 4 mg tablets,dose pack See Rx Instructions .ROUTE .COMPLEX Qty: 21 0RF Rx Instructions: orally per package directions No Action aspirin 325 mg tablet,delayed release (DR/EC) 325 mg PO HS atorvastatin 80 mg tablet 80 mg PO HS nitroglycerin 0.4 mg tablet, sublingual 0.4 mg sublingual Q5M PRN (Reason: angina) ipratropium-albuterol 0.5 mg-3 mg(2.5 mg base)/3 mL solution for nebulization 3 ml inhalation Q6H PRN valsartan 160 mg tablet 160 mg PO HS ipratropium-albuterol 0.5 mg-3 mg(2.5 mg base)/3 mL Solution For Nebulization 3 ml inhalation Q4H PRNQty: 180 0RF lorazepam 0.5 mg Tablet 0.5 mg PO Q6H PRNQty: 14 0RF ondansetron 4 mg Tablet,Disintegrating 4 mg PO Q6H PRNQty: 20 0RF metoprolol tartrate 25 mg Tablet 25 mg PO BID Qty: 180 0RF fluticasone furoate-vilanterol [Breo Ellipta] 100-25 mcg/dose blister with device 1 inh inhalation DAILY Qty: 60 0RF albuterol sulfate 90 mcg/actuation HFA aerosol inhaler 2 puff inhalation Q6H PRN (Reason: shortness of breath or wheezing) Qty: 8.5 3RF Follow Up/Referrals: Rupali Tate MD [Primary Care Provider] - Stand Alone Forms: [employer] Info Instructions
--- NOTE | 2024-02-20 20:26 | PC.NURSE ---
2020 pt to radiology via w/c
[2024-02-20 20:31] VITALS: BP 143/72
[2024-02-20] MEDS: dexAMETHasone 4 MG/ML VIAL 10 MG IV (21:48)
[2024-02-20 21:49] LABS: HCO3 VBG 28 mmol/L (21-28); PCO2 VBG 48 mmHG (40-50); pH VBG 7.369 (7.32-7.43)
[2024-02-20 21:50] LABS: Basophils Absolute Auto 0.05 K/uL (0.00-0.30); Basophils Percent Auto 0.6 % (0.0-3.0); Eosinophils Absolute Auto 0.22 K/uL (0.00-0.50); Eosinophils Percent Auto 2.8 % (0.0-7.0); Hematocrit 35.1 % (33.0-51.0); Hemoglobin* 11.1 gm/dL (12.0-16.0); Immature Granulocytes Abs Auto 0.02 K/uL (0.00-0.30); Immature Granulocytes Pct Auto 0.3 %; Lymphocytes Absolute Auto 1.59 K/uL (0.90-2.90); Lymphocytes Percent Auto 20.4 % (20-44); Mean Corpuscular HGB Conc 32 gm/dL (32-36); Mean Corpuscular Hemoglobin 31 pg (26-34); Mean Corpuscular Volume 98 fL (80-100); Monocytes Percent Auto 9.5 % (0.0-11.0); Neutrophils Absolute Auto 5.17 K/uL (1.7-7.0); Neutrophils Percent Auto 66.4 % (42.0-72.0); Platelet Count* 266 K/uL (140-440); RDW Coefficient of Variation % 13.2 % (11.5-15.5); Red Blood Count 3.58 m/uL (4.00-5.20); White Blood Count* 7.79 K/uL (4.50-11.00)
[2024-02-20 22:12] LABS: Slide Review Reflex No
== END 2024-02-20 22:45 | disposition home or self-care (01) ==
PROVIDERS: Emergency Provider Emergency Medicine Emergency Medical Services; PCP Internal Medicine
DX: J22 Unspecified acute lower respiratory infection (principal)
CPT/HCPCS: 36415; 71046; 82803; 85025; 93005; 96374; 99284; 99285; J1100

== ENCOUNTER 2024-04-15 09:05 | Outpatient (CLI) | payer OTHER, SELFPAY | END 2024-04-15 09:06 | disposition home or self-care (01) | LOC: NFLDREF 09:09 | PROVIDERS: PCP Internal Medicine; Visit Provider Internal Medicine | DX: R06.09 Other forms of dyspnea (principal); I10 Essential (primary) hypertension | CPT/HCPCS: 80053 ==

== ENCOUNTER 2024-04-29 07:57 | Outpatient (CLI) | payer OTHER, SELFPAY | END 2024-04-29 07:58 | disposition home or self-care (01) | LOC: RAD 07:58 | PROVIDERS: PCP Internal Medicine; Visit Provider Internal Medicine | DX: R06.09 Other forms of dyspnea (principal) | CPT/HCPCS: 93306 ==

== ENCOUNTER 2024-06-28 07:54 | Emergency (ER) | payer OTHER, SELFPAY ==
--- OUTSIDE RECORDS SUMMARY | 2024-06-28 07:57 | XMS_ITS | Encounter Summary ---
Author Organization [facility] Address [address] [place] [address] Care Team Providers Care Fire Assistant Name Role Phone Elsewhere, Pcp Primary Care Provider Unavailabl e Reason for Visit * Auth/Cert (Routine) Specialty Diagnoses / Procedures Referred By Carey t Referred To Contact Diagnoses Atherosclerotic Heart Disease [place] Coronary Artery With Other Forms Angina Pectoris (Stable Angina/Angina Of Exertion) Hypertension Essential Primary Edema Pitting Dyspnea On Exertion Atherosclerotic Heart Disease [place] Coronary Artery With Other Forms Angina Pectoris (Stable Angina/Angina Of Exertion) [I25.118] Hypertension Essential Primary [I10] Edema Pitting [R60.9] Dyspnea On Exertion [R06.09] Procedures LA CATH PLC COR ARTY/ANG W RT HRT LA EXERCISE STUDY W HEMODYN [place] CORONARY ANGIOGRAPHY WITH POSSIBLE INTERVENTION HEART CATHETERIZATION - RIGHT EXERCISE Chuck Townsend M.D., Ph.D. [address] [place] [address] Phone: tel: fax: Referral ID Status Reason Start Date Expiration Date Visits Re quested Visits Authorized [id number] 1 1 Encounter Details Date Type Department Care Team (Latest Contact Info) Description 06/04/2024 10:52 AM CDT - 06/04/2024 4:53 PM CDT Hospital Encounter Division of Cardiovascular Diseases in [place], [place] [address] [place] [address] Fuentes Stuart M.D. [address] [place] [address] Atherosclerotic Heart Disease [place] Coronary Artery With Other Forms Angina Pectoris (Stable Angina/Angina Of Exertion); Hypertension Essential Primary; Edema Pitting; Dyspnea On Exertion Discharge Disposition: Home or Self Care Social History Tobacco Use Types Packs/Day Years Used Date Smoking Tobacco: Former Cigarettes 1 49.1 0 03/14/1974 - 04/24/2023 Smokeless Tobacco: Never Alcohol Use Standard Drinks/Week Comments Yes 0 (1 standard drink = 0.6 oz pur e alcohol) Very very rarely [facility] Utilities Answer Date Recorded In the past 12 months has e [employer], gas, oil, or water [employer] threatened to shut off services in your home? No 05/23/2024 Humiliation, Afraid, Rape, and Kick questionnair e [...] Never 07/20/2019 How often do you attend cheondoism or anglican serv ices? Never 07/20/2019 Active [...] Answer Date Recorded PHQ-2 Score 2 04/29/2019 [facility] - Occupational Stress Questionnaire Answer Date Recorded Feeling of Stress Only a little 02/12/2019 Exercise Vital Sign Answer Date Recorde d On average, how many days pe r week do you engage in moderate to strenuous exercise (like a brisk walk)? 0 days 05/23/2024 On average, how many minutes do you engage in exercise at this level? 0 min 05/23/2024 Hunger Vital Sign Answer Date Recorded Within the past 12 months, y ou worried that your food would run out before you got the money to buy more. Never true 05/24/19 Within the past 12 months, t he food you bought just didn't last and you didn't have money to get more. Never true 05/23/2024 PRAPARE - Transportation Answer Date Re corded In the past 12 months, has l ack of transportation kept you from medical appointments or from getting medications? No 05/05 In the past 12 months, has l ack of transportation kept you from meetings, work, or from getting things needed for daily living? No 05/23/2024 Depression Answer Date Recor ded PHQ-9 Total Score (max 27) 6 04/29 Nutrition Answer Date Recorded On average, how many serving s of fruits and vegetables do you eat per day (serving size is equal to 1 cup or approximately the size of a tennis ball)? 3-5 05/23/2024 Dental Answer Date Recorded Dental: Regular Dentist Yes 05/07/19 Employment Answer Date Recorded Employment status Employed and actively working without restrictions 05/23/2024 Housing Stability Answer Date Recorded What is your living situation today? I have a [place] place to live 05/23/2024 Education Answer Date Recorded What is the highest level of school you have completed or the highest degree you have received? Associate degree: academic program 02/12/2019 Comments No Sex and Gender Information Value Date Recorded Sex Assigned at Female 05/07/2023 12:13 PM PERMIT AGENT Legal Sex Female 3:09 AM PERMIT AGENT Gender Identity Female 07/20/2019 7:51 PM CDT Sexual Orientation Straight 07/20/2019 7: 51 PM CDT documented as of this encounter Last Filed Vital Signs Vital Sign Reading Time Taken Comments Blood Pressure 120/77 06/04/2024 4:30 PM CDT Pulse 82 06/04/2024 4:00 PM CDT Temperature 36.6 C (97.9 F) 06/04/2024 11:55 AM CDT Respiratory Rate 0 06/04/2024 2:10 PM CDT Oxygen Saturation 88% 06/04/2024 4:00 PM CDT Inhaled Oxygen Concentration - - Weight 99.8 kg (220 lb 0.3 oz) 06/04/2024 11:44 AM CDT Height 156.5 cm (5' 1.61) 06/04/2024 11:44 AM C DT Body Mass Index 40.75 06/04/2024 11:44 AM CDT documented in this encounter Discharge Instructions * Attachments The following attachments cannot be sent through Care Everywhere. * Care Following Your Catheter Procedure documented in this encounter Medications at Time of Discharge acetaminophen (TYLENOL) 500 mg tablet Take 1,000 mg by mouth as needed for pain. albuterol 90 mcg/actuation inhalerIndication s:Shortness Of Breath,Chronic Obstructive Pulmonary Disease (HCC) Inhale 2 puffs every 4 (four) hours as needed for wheezing or shortness of breath. 1 g 11 05/23/2023 aspirin 81 mg chewable tablet Chew 4 tablets (324 mg total) once for 1 dose. Take morning of procedure. 06/03/2024 aspirin, buffered, 325 mg tablet Take 1 tablet (325 mg total) by mouth daily. 360 tablet 04/06/2019 atorvastatin (LIPITOR) 80 mg tabletIndications :Stroke (HCC) Take 1 tablet (80 mg total) by mouth at bedtime. 90 tablet 3 04/26/2023 clopidogreL (Plavix) 75 mg tablet Take 300 mg (4 tablets) the day before the procedure and 75 mg (1 tablet) the morning of the procedure. 5 tablet 06/03/2024 DME CPAPIndications:O bstructive Sleep Apnea Adult DME Order 1 each 02/29/2024 fluticasone furoate-vilantero L (Breo Ellipta) 100-25 mcg/actuation inhalerIndication s:Chronic Obstructive Pulmonary Disease (HCC) Inhale 1 puff daily. 180 each 3 03/01/2024 ibuprofen (ADVIL,MOTRIN) 200 mg tablet Take 400 mg by mouth as needed for pain. valsartan (Diovan) 160 mg tablet Take 1 tablet by mouth daily. 09/18/2023 benzonatate (Tessalon Perles) 100 mg capsule Take 100 mg by mouth every 4 (four) hours as needed. 02/24/2022 ipratropium-albut Abram (DuoNeb) 0.5-2.5 mg/3 mL nebulizer solutionIndicatio ns:Chronic Obstructive Pulmonary Disease (HCC) Inhale 3 mL by nebulization 4 (four) times a day as needed for wheezing or shortness of breath. 90 mL 11 10/10/2023 nitroglycerin (NITROSTAT) 0.[address] 1 tablet (0.4 mg total) under the tongue every 5 (five) minutes as needed for chest pain. 30 tablet 04/26/2023 Spiriva Respimat 2.5 mcg/actuation inhalerIndication s:Chronic Obstructive Pulmonary Disease (HCC) INHALE 2 PUFFS BY MOUTH ONCE DAILY 4 g 11 03/18/2024 documented as of this encounter Plan of Treatment Upcoming Encounters Date Type Department Care Team (Late st Contact Info) Description 06/28/2024 3:00 PM CDT Virtual Visit Division of Pulmonary Medicine in [place], [place] [address] [place] [phone] Anum Jacobson, AMEENA, C.N.P., D.N.P. [address] [place] [phone] 07/03/2024 2:00 PM CDT [facility] in [place], [place] [address] [place] [phone] Baylee Pike M.D. [address] [place] [phone] documented as of this encounter Procedures Procedure Name Priority Date/Time Associated Diagnosis Comments CARDIAC CATHETERIZATION Routine 06/05/19 2:23 PM CDT Atherosclerotic Heart Disease [place] Coronary Artery With Other Forms Angina Pectoris (Stable Angina/Angina Of Exertion) Hypertension Essential Primary Edema Pitting Dyspnea On Exertion CARDIAC CATHETERIZATION Routine 06/05/19 2:23 PM CDT Atherosclerotic Heart Disease [place] Coronary Artery With Other Forms Angina Pectoris (Stable Angina/Angina Of Exertion) Hypertension Essential Primary Edema Pitting Dyspnea On Exertion CBC WITHOUT DIFFERENTIAL, B STAT 06/04/2024 12:27 PM CDT documented in this encounter Results * RIGHT HEART CATHETERIZATION, CORONARY ANGIOGRAPHY (06/04/2024 2:23 PM CDT) Anatomical Region Laterality Modality X-Ray Angiograph y 06/04/2024 1:28 PM CDT Narrative 06/04/2024 4:23 PM CDT For the complete report, see the Order-Level Documents. PROCEDURE TYPES 1. HEART CATHETERIZATION - RIGHT 2. CORONARY ANGIOGRAPHY FINAL DIAGNOSIS 1. Mild pulmonary hypertension 2. Severe coronary artery atherosclerosis PRE-PROCEDURE DIAGNOSIS 1. Atherosclerotic Heart Disease [place] Coronary Artery With Other Forms Angina Pectoris (Stable Angina/Angina Of Exertion) 2. Hypertension Essential Primary 3. Edema Pitting 4. Dyspnea On Exertion HEMODYNAMICS SUMMARY Baseline hemodynamics: mRA 3, PA 44/13/27, mPCWP 6, CO/CI 4.9/2.9, PVR 4.2 The findings are consistent with mild precapillary pulmonary hypertension. Normal bilateral filling pressures at rest. CORONARY DIAGNOSTIC SUMMARY Coronary artery dominance is right. Normal left main coronary. The middle left anterior descending artery is 50% obstructed by diffuse disease and 70% obstructed by a discrete lesion. The distal segment is small size. The distal circumflex artery is 30% obstructed by a discrete lesion. The first obtuse marginal is 60% obstructed by a discrete lesion and 70% obstructed by a discrete lesion. The distal segment is normal size. The second obtuse marginal is 30% obstructed by a discrete lesion. The distal segment is large size. The proximal right coronary artery is 100% obstructed by a discrete lesion. The right posterior descending artery distal segment is large size. Receives collaterals from the second obtuse marginal. The right posterolateral segment distal segment is normal size. Receives collaterals from the distal circumflex artery. There were robust collaterals to the distal RCA territory from the distal circumflex artery and the second obtuse marginal artery. The occluded right PDA is a large caliber vessel that supplies the apex. The LAD is small caliber and does not extend to the apex. The 1st obtuse marginal has a high origin and has an ostial lesion of approximately 60% and then bifurcates with the larger branch having a 70% lesion. This vessel supplies the anterolateral wall adjacent the LAD. RADIATION DOSE DATA Procedure cumulative skin dose (mGy): 225.64 Procedure cumulative dose area product (Gy-cm2): 16.63 Fluoro Time (Min): 2.25 CONTRAST DOSE DATA iohexoL 350 mg iodine/mL solution (Omnipaque): 60mL For the complete report, see the Order-Level Documents. Procedure Note Ignacio Vail M.D., Ph.D. - 06/04/2024 For the complete report, see the Order-Level Documents. PROCEDURE TYPES 1. HEART CATHETERIZATION - RIGHT 2. CORONARY ANGIOGRAPHY FINAL DIAGNOSIS 1. Mild pulmonary hypertension 2. Severe coronary artery atherosclerosis PRE-PROCEDURE DIAGNOSIS 1. Atherosclerotic Heart Disease [place] Coronary Artery With Other FormsAngina Pectoris (Stable Angina/Angina Of Exertion) 2. Hypertension Essential Primary 3. Edema Pitting 4. Dyspnea On Exertion HEMODYNAMICS SUMMARY Baseline hemodynamics: mRA 3, PA 44/13/27, mPCWP 6, CO/CI 4.9/2.9, PVR 4.2 The findings are consistent with mild precapillary pulmonary hypertension.Normal bilateral filling pressures at rest. CORONARY DIAGNOSTIC SUMMARY Coronary artery dominance is right. Normal left main coronary. The middle left anterior descending artery is 50% obstructed by diffusedisease and 70% obstructed by a discrete lesion. The distal segment issmall size. The distal circumflex artery is 30% obstructed by a discrete lesion. The first obtuse marginal is 60% obstructed by a discrete lesion and 70%obstructed by a discrete lesion. The distal segment is normal size. The second obtuse marginal is 30% obstructed by a discrete lesion. Thedistal segment is large size. The proximal right coronary artery is 100% obstructed by a discretelesion. The right posterior descending artery distal segment is large size.Receives collaterals from the second obtuse marginal. The right posterolateral segment distal segment is normal size. Receivescollaterals from the distal circumflex artery. There were robust collaterals to the distal RCA territory from the distalcircumflex artery and the second obtuse marginal artery. The occludedright PDA is a large caliber vessel that supplies the apex. The LAD issmall caliber and does not extend to the apex. The 1st obtuse marginal hasa high origin and has an ostial lesion of approximately 60% and thenbifurcates with the larger branch having a 70% lesion. This vesselsupplies the anterolateral wall adjacent the LAD. RADIATION DOSE DATA Procedure cumulative skin dose (mGy): 225.64 Procedure cumulative dose area product (Gy-cm2): 16.63 Fluoro Time (Min): 2.25 CONTRAST DOSE DATA iohexoL 350 mg iodine/mL solution (Omnipaque): 60mL For the complete report, see the Order-Level Documents. us Chuck Townsend M.D., Ph.D. CV CARDIAC CATH PRO CEDURES Final Result * CBC without Differential (06/04/2024 12:27 PM CDT) Hemoglobin 12.1 11.6 - 15.0 g/dL 06/04/2024 12:41 PM CDT [facility] Hematocrit 38.2 35.5 - 44.9 % 06/04/2024 12:41 PM CDT [facility] Erythrocytes 4.00 3.92 - 5.13 x10(12)/L 06/04/2024 12:41 PM CDT [facility] MCV 95.5 78.2 - 97.9 fL 06/04/2024 12:41 PM CDT [facility] RBC Distrib Width 13.3 12.2 - 16.1 % 06/04/2024 12:41 PM CDT [facility] Platelet Count 286 157 - 371 x10(9)/L 06/04/2024 12:41 PM CDT [facility] Leukocytes 7.6 3.4 - 9.6 x10(9)/L 06/04/2024 12:41 PM CDT [facility] Blood (Blood, Venous) 06/04/2024 12:27 PM CDT 06/04/2024 12:38 PM CDT us Ignacio Vail M.D., Ph.D. LAB BLOOD ADD-ON F inal Result [facility] [address] [place] [address], [facility] STMA [facility] [address] [place] [address] documented in this encounter Visit Diagnoses Diagnosis Atherosclerotic Heart Disease [place] Coronary Artery With Other Forms Angina Pectoris (Stable Angina/Angina Of Exertion) Hypertension Essential Primary Edema Pitting Dyspnea On Exertion Atherosclerotic Heart Disease [place] Coronary Artery With Other Forms Angina Pectoris (Stable Angina/Angina Of Exertion) Hypertension Essential Primary Edema Pitting Dyspnea On Exertion documented in this encounter Admitting Diagnoses Diagnosis Atherosclerotic Heart Disease [place] Coronary Artery With Other Forms Angina Pectoris (Stable Angina/Angina Of Exertion) Hypertension Essential Primary Edema Pitting Dyspnea On Exertion documented in this encounter Administered Medications Inactive Administered Medications - up to 3 most recent administrations Medication Order MAR Action Action Date Dose Rate Site acetaminophen suppository 650 mg (TylenoL) 650 mg, rectal, Every 6 hours PRN, mild pain or score 1-3 of 10, Starting on Mon06/04/24 at 1545, Postprocedure (CV), If unable to give orally acetaminophen tablet 1,000 mg (TylenoL) 1,000 mg, oral, Every 6 hours PRN, mild pain or score 1-3 of 10, Starting on Mon06/04/24 at 1545, Postprocedure (CV) fentaNYL injection 25 mcg (Sublimaze) 25 mcg, intravenous, Every 2 min PRN, sedation, Administer over 1 minute immediately prior to the procedure. May repeat every 2 minutes to a maximum of 200 mcg, until pain score of 3 or less, or until the patient meets the pain comfort goal. or RASS 0 to -2. Do not give if respiratory rate is less than 8 breaths/minute, Starting on Mon06/04/24 at 1249, Intraprocedure (CV), Subsequent doses Given 06/04/2024 2:14 PM CDT 25 mcg Given 06/04/2024 1:42 PM CDT 25 mcg Given 06/04/2024 1:23 PM CDT 25 mcg fentaNYL injection 25 mcg (Sublimaze) 25 mcg, intravenous, Once as needed, sedation, Starting on Mon06/04/24 at 1249, For 1 dose, Intraprocedure (CV), Initial dose flumazeniL injection 0.2 mg (Romazicon) 0.2 mg, intravenous, Once as needed, reversal, Starting on Mon06/04/24 at 1249, For 1 dose, Intraprocedure (CV), Administer once if patient has a RASS score of -4, -5 and has a respiratory rate less than 8 breaths/minute. midazolam (PF) injection 0.25 mg (Versed) 0.25 mg, intravenous, Every 2 min PRN, sedation, RASS -2, Starting on Mon06/04/24 at 1249, Intraprocedure (CV), May repeat every 2 minutes to a maximum of 5 mg. Do not give if respiratory rate is less than 8 breaths/minute. Given 06/04/2024 2:14 PM CDT 1 mg midazolam (PF) injection 0.5 mg (Versed) 0.5 mg, intravenous, Once as needed, sedation, Starting on Mon06/04/24 at 1249, For 1 dose, Intraprocedure (CV) midazolam (PF) injection 0.5 mg (Versed) 0.5 mg, intravenous, Every 2 min PRN, sedation, RASS -1, Starting on Mon06/04/24 at 1249, Intraprocedure (CV), May repeat every 2 minutes for a maximum of 5 mg. Do not give if respiratory rate is less than 8 breaths/minute. Given 06/04/2024 1:42 PM CDT 0.5 mg Given 06/04/2024 1:00 PM CDT 0.5 mg midazolam (PF) injection 1 mg (Versed) 1 mg, intravenous, Every 2 min PRN, sedation, RASS 0, Starting on Mon06/04/24 at 1249, Intraprocedure (CV), May repeat every 2 minutes for a maximum of 5 mg. Do not give if respiratory rate is less than 8 breaths/minute. NaCl 0.9% infusion 20 mL/hr, intravenous, Once as needed, to keep vein open, Starting on Mon06/04/24 at 1249, For 1 dose, Intraprocedure (CV) naloxone injection 0.2 mg (Narcan) 0.2 mg, intravenous, Once as needed, respiratory depression, Starting on Mon06/04/24 at 1249, For 1 dose, Intraprocedure (CV), Administer once if patient has a RASS score of -4, -5 and has a respiratory rate less than 8 breaths/minute. ondansetron (PF) injection 4 mg (Zofran) 4 mg, intravenous, Once as needed, nausea, Starting on Mon06/04/24 at 1545, For 1 dose, Postprocedure (CV), First line option Given 06/04/2024 3:49 PM CDT 4 mg prochlorperazine injection 10 mg (Compazine) 10 mg, intravenous, Once, On Mon06/04/24 at 1700, For 1 dose Given 06/04/2024 4:38 PM CDT 10 mg sodium chloride 0.9 % injection 10 mL 10 mL, intravenous, As needed, line care, Starting on Mon06/04/24 at 1147, Preprocedure (CV), Peripheral Intravenous Catheter and Rapid Infusion Catheter, prior to blood sampling, post blood transfusion or post blood sampling sodium chloride 0.9 % injection 10 mL 10 mL, intravenous, As needed, line care, Starting on Mon06/04/24 at 1249, Intraprocedure (CV), Peripheral Intravenous Catheter and Rapid Infusion Catheter, prior to blood sampling, post blood transfusion or post blood sampling sodium chloride 0.9 % injection 3 mL 3 mL, intravenous, As needed, line care, Starting on Mon06/04/24 at 1147, Preprocedure (CV), Prior to and following infusion and between multiple consecutive infusions: sodium chloride 0.9 % injection sodium chloride 0.9 % injection 3 mL 3 mL, intravenous, Every 12 hours scheduled, First dose on Mon06/04/24 at 2100, Preprocedure (CV), Peripheral Intravenous Catheter and Rapid Infusion Catheter, when no infusion to maintain patency sodium chloride 0.9 % injection 3 mL 3 mL, intravenous, As needed, line care, Starting on Mon06/04/24 at 1249, Intraprocedure (CV), Prior to and following infusion and between multiple consecutive infusions: sodium chloride 0.9 % injection sodium chloride 0.9 % injection 3 mL 3 mL, intravenous, Every 12 hours scheduled, First dose on Mon06/04/24 at 2100, Intraprocedure (CV), Peripheral Intravenous Catheter and Rapid Infusion Catheter, when no infusion to maintain patency documented in this encounter Active and Recently Administered Medications Times are shown in CDT. Scheduled Medication Order 06/02/2024 06/03/2024 06/04/2024 prochlorperazine injection 10 mg (Compazine) (COMPLETED) 10 mg, intravenous, Once, On Mon06/04/24 at 1700, For 1 dose 1638 (Given - Provid er: Sabine Alvarado R.N.) sodium chloride 0.9 % injection 3 mL 3 mL, intravenous, Every 12 hours scheduled, First dose on Mon06/04/24 at 2100, Preprocedure (CV), Peripheral Intravenous Catheter and Rapid Infusion Catheter, when no infusion to maintain patency sodium chloride 0.9 % injection 3 mL 3 mL, intravenous, Every 12 hours scheduled, First dose on Mon06/04/24 at 2100, Intraprocedure (CV), Peripheral Intravenous Catheter and Rapid Infusion Catheter, when no infusion to maintain patency PRN Medication Order 06/02/2024 06/03/2024 06/04/2024 acetaminophen suppository 650 mg (TylenoL)(Linked Group 1) 650 mg, rectal, Every 6 hours PRN, mild pain or score 1-3 of 10, Starting on Mon06/04/24 at 1545, Postprocedure (CV), If unable to give orally acetaminophen tablet 1,000 mg (TylenoL)(Linked Group 1) 1,000 mg, oral, Every 6 hours PRN, mild pain or score 1-3 of 10, Starting on Mon06/04/24 at 1545, Postprocedure (CV) fentaNYL injection 25 mcg (Sublimaze) 25 mcg, intravenous, Every 2 min PRN, sedation, Administer over 1 minute immediately prior to the procedure. May repeat every 2 minutes to a maximum of 200 mcg, until pain score of 3 or less, or until the patient meets the pain comfort goal. or RASS 0 to -2. Do not give if respiratory rate is less than 8 breaths/minute, Starting on Mon06/04/24 at 1249, Intraprocedure (CV), Subsequent doses 1300 (Given - Provid er: Andres Simmons, R.N., CCRN)1323 (Given - Provider: Andres Simmons, Sahil.Yoel., CCRN)1342 (Given - Provider: Andres Simmons, Sahil.Yoel., CCRN)1414 (Given - Provider: Andres Simmons, Sahil.Anderson, CCRN) fentaNYL injection 25 mcg (Sublimaze) 25 mcg, intravenous, Once as needed, sedation, Starting on Mon06/04/24 at 1249, For 1 dose, Intraprocedure (CV), Initial dose flumazeniL injection 0.2 mg (Romazicon) 0.2 mg, intravenous, Once as needed, reversal, Starting on Mon06/04/24 at 1249, For 1 dose, Intraprocedure (CV), Administer once if patient has a RASS score of -4, -5 and has a respiratory rate less than 8 breaths/minute. heparin (porcine) 1,000 unit/mL injection (CANCELED) Code/trauma/sedation medication, Starting on Mon06/04/24 at 1342, Intraprocedure (CV) 1342 (Given - Provid er: Andres Simmons, Roberth, CCRN) iohexoL 350 mg iodine/mL solution (Omnipaque) (CANCELED) Code/trauma/sedation medication, Starting on Mon06/04/24 at 1412, Intraprocedure (CV) 1412 (Given - Provid er: Jason Chavez M.D.) lidocaine 10 mg/mL (1 %) injection (Xylocaine) (CANCELED) Code/trauma/sedation medication, Starting on Mon06/04/24 at 1330, Intraprocedure (CV) 1330 (Given - Provid er: Ignacio Vail M.D., Ph.D.) lidocaine 10 mg/mL (1 %) injection (Xylocaine) (CANCELED) Code/trauma/sedation medication, Starting on 06/04/24 at 1356, Intraprocedure (CV) 1356 (Given - Provid er: Jason Chavez M.D.) midazolam (PF) injection 0.25 mg (Versed) 0.25 mg, intravenous, Every 2 min PRN, sedation, RASS -2, Starting on e 06/04/24 at 1249, Intraprocedure (CV), May repeat every 2 minutes to a maximum of 5 mg. Do not give if respiratory rate is less than 8 breaths/minute. 1414 (Given - Provid er: Helen Isabel R.N.) midazolam (PF) injection 0.5 mg (Versed) 0.5 mg, intravenous, Once as needed, sedation, Starting on e 06/04/24 at 1249, For 1 dose, Intraprocedure (CV) midazolam (PF) injection 0.5 mg (Versed) 0.5 mg, intravenous, Every 2 min PRN, sedation, RASS -1, Starting on Mon06/04/24 at 1249, Intraprocedure (CV), May repeat every 2 minutes for a maximum of 5 mg. Do not give if respiratory rate is less than 8 breaths/minute. 1300 (Given - Provid er: Flora Simmons., R.N., CCRN)1342 (Given - Provider: Flora Simmons., R.N., CCRN) midazolam (PF) injection 1 mg (Versed) 1 mg, intravenous, Every 2 min PRN, sedation, RASS 0, Starting on Mon06/04/24 at 1249, Intraprocedure (CV), May repeat every 2 minutes for a maximum of 5 mg. Do not give if respiratory rate is less than 8 breaths/minute. NaCl 0.9% infusion 20 mL/hr, intravenous, Once as needed, to keep vein open, Starting on Mon06/04/24 at 1249, For 1 dose, Intraprocedure (CV) naloxone injection 0.2 mg (Narcan) 0.2 mg, intravenous, Once as needed, respiratory depression, Starting on Mon06/04/24 at 1249, For 1 dose, Intraprocedure (CV), Administer once if patient has a RASS score of -4, -5 and has a respiratory rate less than 8 breaths/minute. nitroglycerin SL tablet (Nitrostat) (CANCELED) Code/trauma/sedation medication, Starting on Mon06/04/24 at 1340, Intraprocedure (CV) 1340 (Given - Provid er: Flora Simmons., R.N., CCRN)1418 (Given - Provider: Flora Simmons., R.N., CCRN) ondansetron (PF) injection 4 mg (Zofran) (COMPLETED) 4 mg, intravenous, Once as needed, nausea, Starting on Mon06/04/24 at 1545, For 1 dose, Postprocedure (CV), First line option 1549 (Given - Provid er: Sabine Alvarado R.N.) sodium chloride 0.9 % injection 10 mL 10 mL, intravenous, As needed, line care, Starting on Mon06/04/24 at 1147, Preprocedure (CV), Peripheral Intravenous Catheter and Rapid Infusion Catheter, prior to blood sampling, post blood transfusion or post blood sampling sodium chloride 0.9 % injection 10 mL 10 mL, intravenous, As needed, line care, Starting on Mon06/04/24 at 1249, Intraprocedure (CV), Peripheral Intravenous Catheter and Rapid Infusion Catheter, prior to blood sampling, post blood transfusion or post blood sampling sodium chloride 0.9 % injection 3 mL 3 mL, intravenous, As needed, line care, Starting on Mon06/04/24 at 1147, Preprocedure (CV), Prior to and following infusion and between multiple consecutive infusions: sodium chloride 0.9 % injection sodium chloride 0.9 % injection 3 mL 3 mL, intravenous, As needed, line care, Starting on Mon06/04/24 at 1249, Intraprocedure (CV), Prior to and following infusion and between multiple consecutive infusions: sodium chloride 0.9 % injection Linked Groups Order Group 1: acetaminophen tablet 1,000 mg (TylenoL)Jump to med 1,000 mg, oral, Every 6 hours PRN, mild pain or score 1-3 of 10, Starting on Mon06/04/24 at 1545, Postprocedure (CV) Or acetaminophen suppository 650 mg (TylenoL)Jump to med 650 mg, rectal, Every 6 hours PRN, mild pain or score 1-3 of 10, Starting on Mon06/04/24 at 1545, Postprocedure (CV), If unable to give orally documented in this encounter Additional Health Concerns Assessment Noted Time PHQ-9 Depression Total Score: 6 04/29/19 20 12:40 PM PERMIT AGENT documented as of this encounter Care Teams Fire Assistant Relationship Specialty Start Date End Date Elsewhere, Pcp PCP - General Internal Medicine 04/24/23 documented as of this encounter
--- OUTSIDE RECORDS SUMMARY | 2024-06-28 07:57 | XMS_ITS | Encounter Summary ---
Author Organization [facility] Address [address] [place] [address] Care Team Providers Care Pier Master Assistant Name Role Phone Elsewhere, Pcp Primary Care Provider Unavailabl e Reason for Visit * Reason Comments Patient Education Encounter Details Date Type Department Care Team (Latest Contact Info) Description 06/03/2024 11:00 AM CDT Virtual Visit Department of Cardiovascular Medicine in [place], [place] [address] [place] [phone] Chuck Townsend M.D., Ph.D. [address] [place] [phone] Phoebe Hawley RTejas [address] [place] [phone] Atherosclerotic Heart Disease [place] Coronary Artery With Other Forms Angina Pectoris (Stable Angina/Angina Of Exertion) (Primary Dx); Hypertension Essential Primary; Edema Pitting; Dyspnea On Exertion Social History Tobacco Use Types Packs/Day Years Used Date Smoking Tobacco: Former Cigarettes 1 49.1 0 03/14/1974 - 04/24/2023 Smokeless Tobacco: Never Alcohol Use Standard Drinks/Week Comments Yes 0 (1 standard drink = 0.6 oz pur e alcohol) Very very rarely [facility] Utilities Answer Date Recorded In the past 12 months has [employer] electric, gas, oil, or water company threatened [...] Never 07/20/2019 How often do you attend jew or samaritan serv ices? Never 07/20/2019 Active Member of [...] Answer Date Recorded PHQ-2 Score 2 04/29/2019 [facility] [place] of Occupat ional Health - Occupational Stress [...] living situation today? I [facility] place to live 05/23/2024 Education Answer Date Recorded What is the highest level of school you have completed or the highest degree you have received? Associate degree: academic program 02/12/2019 Comments No Sex and Gender Information Value Date Recorded Sex Assigned at Female 05/07/2023 12:13 PM DIRECTOR COUNCIL ON AGING Legal Sex Female 3:09 AM DIRECTOR COUNCIL ON AGING Gender Identity Female 07/20/2019 7:51 PM CDT Sexual Orientation Straight 07/20/2019 7: 51 PM CDT documented as of this encounter Progress Notes * Phoebe Hawley R.N. - 06/03/2024 11:00 AM CDT SUBJECTIVE REASON FOR VISIT Pre-procedure education OBJECTIVE Nurse education visit was completed within the Pre-Procedure Clinic (PPC) as ordered by the referring provider for a Building Materials Sales Attendant readiness review and education prior to procedure. The visit was conducted via telephone. Procedure to be done: Coronary Angiogram Date of procedure: 06/05/24 JULES completed within 30 days of procedure? Yes Labs completed within 45 days of procedure? Yes ECG completed within designated timeframe of procedure? Yes Allergy to contrast dye/iodine? No Medications -- Aspirin Instructions: Take four tablets of 81 mg non-enteric Aspirin (for a total of 324 mg) or one tablet of 325 mg non-enteric coated Aspirin on the morning of your procedure as directed. -- Anti-Platelet Therapy Instructions: Take 4 tablets (300 mg total) of Plavix on the day prior to your procedure. Take 1 tablet (75 mg) of Plavix on the morning of your procedure. -- Vitamins/Supplements Instructions: Hold your vitamins or supplements the morning of the procedure. Anticoagulation Plan Not applicable ASSESSMENT / PLAN Information Discussed Reviewed pre-procedure instructions with patient/family including: Basic information about the scheduled procedure. Fasting for 8 hours, 6 hours, and 2 hours prior to report time. Please refer to the ???Instructions To Get Ready for Your Cardiac Catheterization or Heart Rhythm Procedure: [facility] [place] pamphlet for further details. Taking all medications as instructed. Calling the [facility] Service Line ([phone]) the evening before the procedure between the hours of 7:00 pm and midnight to learn what time and where to report to the hospital the next day. Needing a responsible adult (18 years of age or older) to be present the day of procedure includingat discharge for transportation home. Planning to stay within 100 miles of [facility] [place] overnight. Visitor Policy Please check the [facility] Visitor Policy website for the most up to date visitor policy information. Disposition/Recommendation: protocol orders and self-care are appropriate at this time, patient encouraged to call back with questions Information/Education: patient/caller able to teach back Caller agreeable to plan of care: yes The following references were used: [facility] protocol: Cardiovascular Clinic Pre-Cardiac Invasive Catheterization Procedure Patient Management and Cardiac Building Materials Sales Attendant Procedural Practice Guidelines documented in this encounter Plan of Treatment Upcoming Encounters Date Type Department Care Team (Late st Contact Info) Description 06/28/2024 3:00 PM CDT Virtual Visit Division of Pulmonary Medicine in [place], [place] [address] [place] [phone] Anum Jacobson, AMEENA, C.N.P., D.N.P. [address] [place] [phone] 07/03/2024 2:00 PM CDT [facility] in [place], [place] [address] [place] [phone] Baylee Pike M.D. [address] [place] [phone] documented as of this encounter Visit Diagnoses Diagnosis Atherosclerotic Heart Disease [place] Coronary Artery With Other Forms Angina Pectoris (Stable Angina/Angina Of Exertion)- Primary Hypertension Essential Primary Edema Pitting Dyspnea On Exertion documented in this encounter Additional Health Concerns Assessment Noted Time PHQ-9 Depression Total Score: 6 04/29/19 20 12:40 PM DIRECTOR COUNCIL ON AGING documented as of this encounter Care Teams Pier Master Assistant Relationship Specialty Start Date End Date Elsewhere, Pcp PCP - General Internal Medicine 04/24/23 documented as of this encounter
--- OUTSIDE RECORDS SUMMARY | 2024-06-28 07:58 | XMS_ITS | Encounter Summary ---
Author Organization [facility] Address [address] [place] [address] Care Team Providers Care Product Support Consultant Name Role Phone Elsewhere, Pcp Primary Care Provider Unavailabl e Reason for Visit * Reason Comments Post-op Problem Encounter Details Date Type Department Care Team (Late st Contact Info) Description 06/12/2024 9:58 PM CDT - 06/13/2024 4:[address] [facility] Emergency Department [address] [place] [phone] Leonardo Jones M.D. [address] [place] [phone] Unspecified Injury Radial Artery Forearm Level Right Initial (Primary Dx); Pain Postoperative Discharge Disposition: Home or Self Care Social History Tobacco Use Types Packs/Day Years Used Date Smoking Tobacco: Former Cigarettes 1 49.1 0 03/14/1974 - 04/24/2023 Smokeless Tobacco: Never Alcohol Use Standard Drinks/Week Comments Yes 0 (1 standard drink = 0.6 oz pur e alcohol) Very very rarely [facility] Utilities Answer Date Recorded In the [...] How often do you attend hindu or worship serv ices? Never 07/20/2019 Active Member of [...] Answer Date Recorded PHQ-2 Score 2 04/29/2019 [facility] - [...] money to buy more. Never true 05/24/19 25 Within the past 12 months, t he [...] your living situation today? I have a [facility] place to live 05/23/2024 Education Answer Date Recorded What is the highest level of school you have completed or the highest degree you have received? Associate degree: academic program 02/12/2019 Comments No Sex and Gender Information Value Date Recorded Sex Assigned at Female 05/07/2023 12:13 PM [employer] Legal Sex Female 3:09 AM [employer] Gender Identity Female 07/20/2019 7:51 PM CDT Sexual Orientation Straight 07/20/2019 7: 51 PM CDT documented as of this encounter Last Filed Vital Signs Vital Sign Reading Time Taken Comments Blood Pressure 149/62 06/13/2024 2:30 AM CDT Pulse 73 06/13/2024 1:00 AM CDT Temperature 36.5 C (97.7 F) 06/12/2024 10:07 PM CDT Respiratory Rate 18 06/12/2024 10:07 PM CDT Oxygen Saturation 95% 06/13/2024 1:00 AM CDT Inhaled Oxygen Concentration - - Weight 101 kg (222 lb 10.6 oz) 06/12/2024 10:01 PM CDT Height - - Body Mass Index 41.24 06/04/2024 11:44 AM CDT documented in this encounter Discharge Instructions * Discharge Instructions* Leonardo Jones M.D. - 06/13/2024 3:44 AM CDT Keep your arm elevated per hand surgery guidelines Use your brace for comfort documented in this encounter Medications at Time [...] every 4 (four) hours as needed. 02/24/2022 clopidogreL (Plavix) 75 mg tablet Take 300 [...] MOUTH ONCE DAILY 4 g 11 03/18/2024 valsartan (Diovan) 160 mg tablet Take 1 tablet by mouth daily. 09/18/2023 amoxicillin-pot clavulanate (Augmentin) 875-125 mg per tabletIndications :Pain Postoperative,Uns pecified Injury Radial Artery Forearm Level Right Initial Take 1 tablet by mouth 2 (two) times a day for 7 days. 14 tablet 06/13/2024 documented as of this encounter Consult Notes * Tika Baker M.D. - 06/13/2024 2:48 AM CDTAssociated Order(s): IP CONSULT TO HAND SURGERY HAND SURGERY CONSULT NOTE Today's date: 06/13/2024 Date of ED visit: 06/12/2024 CHIEF COMPLAINT/REASON FOR VISIT Right hand pain and tingling HISTORY OF PRESENT ILLNESS Ms. Allison is a 63 y.o. year old right hand dominant female. Hand surgery has been consulted for the evaluation and management of right hand pain and tingling. The patient received an angiogram on 06/04/24 due to concern for elevated JVP and lower extremity swelling, with right radial and internal jugular access, 1 week ago. She was premedicated with aspirin and Plavix. Starting on Monday morning, she started having pain and tingling in her right hand, which became more severe on Monday, prompting her presentation to the ED. She reports the pain and ti ngling did not spread, but become more bothersome. She endorses pain from the palm to mid forearm on volar aspect of RUE. She reports the pain at its worse is a 7/10, right now is a 2/10. She also endorses intermittent numbness, but is not currently numb per patient. The pain is worse with certain movement like picking things up. It is better with rest, and has improved since resting her arm in the ED for the past few hours. She denies any fevers, chills, malaise, or other symptoms. She reports bot arms are swollen equallydue to her peripheral edema. She has no pain or issues in the elbow or shoulder. Notably, she is flying out to [place] on Monday for a week long vacation. PAST MEDICAL HISTORY Relevant for COPD, hypertension, right [employer] stroke (2019), abdominal aortic aneurysm, obstructive sleep apnea, syncope, and atherosclerotic aortic disease. Notably, the patient denies a history of diabetes, bleeding disorders, or DVT/PE. The patient has never had surgery on either hand. No previous history of injury to the right hand. No history of carpal tunnel. Medical History[1] Surgical History[2] SOCIAL: former smoker, quit in 2023, 47 pack year history Preferred contact number [phone]. Patient lives in [place]. MEDICATIONS Medications Ordered Prior to Encounter[3] ALLERGIES Allergies[4] REVIEW OF SYSTEMS Pertinent items are noted in HPI; all other review of systems was negative. OBJECTIVE Vitals: 06/13/24 0230 BP: 149/62 Pulse: Resp: Temp: SpO2: PHYSICAL EXAMINATION GEN: NAD, A&Ox3, resting comfortably, answering questions appropriately. RIGHT UPPER EXTREMITY: INSPECTION: No obvious deformity. No erythema, minimal swelling compared to the other side. Tenderness to palpation over the radial aspect of the right hand and forearm. Full, painless range of motion of right elbow and shoulder. No swelling, hematoma, or bruising in the right neck, shoulder, or axilla. Both vascular access sites are well healed with no discharge, bleeding, or focal bruising. VASCULAR: 2+ radial and ulnar pulse. Reymundo test shows adequate circulation to the palm in both ulnar and radial arteries. Pulse dopplerable over the superficial arch wit radial and ulnar occlusion. Pulse dopplerable over the radial side of the middle finger with radial occulusion, but not ulnar. The extremity is pink and well perfused. Capillary refill is approximately 2 seconds throughout without concern for ischemia or impaired venous outflow. PALPATION: Tender to palpation over the dorsal aspect of the right hand, with shooting pain in the distribution of the superficial branch of the radial nerve. No pain with active range of motion, some pain with forced passive wrist extension. MOTOR: -- Firing PIN, AIN, and ulnar -- Positive Tinel in carpal tunnel --- Able to extend all fingers fully. Able to make 50% of a composite fist, some pain with increased flexion. --- FDS 5/5 --- FDP 5/5 --- Wrist flexion and extension: 5/5 --- Fires EPL >AIN of Median Nerve --- Fires FPL --- 5/5 strength on OK sign. >PIN of Radial Nerve --- Fires APL/EPB, EIP, EDM, ECU >Ulnar Nerve --- Interossei 5/5 strength --- Unable to cross fingers Sensory: --SILT throughout the distributions of the median, ulnar, and radial nerves. --Two point discrimination 4 mm in all fingers. -- Tingling in all fingers, worse in thumb, index, and middle, without numbness LABORATORY/IMAGING: LABORATORY STUDIES: Recent Labs 06/13/2452 WBC 8.9 HGB 11.4 L HCT 35.2 L MCV 94.4 PLT 293 Recent Labs 06/13/2452 NA 139 CL 105 CREATININE 0.77 BUN 17 GLUCOSE 102 Recent Labs 06/13/2452 SEDRATE 24 H CRP 5.3 H IMAGING: Relevant imaging, where available, was reviewed. Ultrasound of distal radial artery showed tiny thrombosed pseudoaneurysm versus scarring from catheterization. Artery is patent. Vein ultrasound negative for DVT. ASSESSMENT/PLAN Genevieve Allison is a 63 y.o. female who presents with two days of right hand and forearm pain with tingling and intermittent numbness. Hand Surgery was consulted for this issue. Ultrasound showsa tiny, thrombosed pseudoaneurysm versus scar from cannulation in the radial artery. No DVT, hematoma, or active bleeding appreciated. CRP and ESR mildly elevated, but lack of fever, erythema, significant swelling, or other symptoms makes infection less likely. Patient is neurovascularly intact, with some pain over the dorsal aspect of the right hand and when making a fist. No proximal swelling, bruising, or symptoms concerning for a proximal hematoma or brachial plexopathy. Tingling seems to be primarily in the median nerve distribution. We discussed with the patient the etiology is unclear at this time, and recommend close follow up for progression of symptoms. We discussed staying overnight for observation, but the patient declinedat tis time. We discussed that since she is flying to [place] on Monday, we will plan for tentative follow up in cast room on Monday versus follow up in 10 days. In the meantime, we recommend she remain NWB on the RUE, with a splint for comfort if the patient wishes and elevation. We also recommended augmentin for 5 days out of an abundance of caution given possibility of pseudoaneurysm. We discussed reasons to return to the ED. PLAN. 1. NWB RUE 2 weeks. 2. Elevate RUE. 3. Wist splint for comfort 4. Follow up in the cast room on Monday tentatively 5. Augmentin 5 days Thank you for the opportunity to participate in this patient's care. Please contact us with questions or concerns at [phone]. Tika Baker M.D. 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 Current Outpatient Medications on File Prior to Encounter Medication Sig Dispense Refill acetaminophen (TYLENOL) 500 mg tablet Take 1,000 mg by mouth as needed for pain. albuterol 90 mcg/actuation inhaler Inhale 2 puffs every 4 (four) hours as needed for wheezing or shortness of breath. 1 g 11 aspirin 81 mg chewable tablet Chew 4 tablets (324 mg total) once for 1 dose. Take morning of procedure. aspirin, buffered, 325 mg tablet Take 1 tablet (325 mg total) by mouth daily. 360 tablet 0 atorvastatin (LIPITOR) 80 mg tablet Take 1 tablet (80 mg total) by mouth at bedtime. 90 tablet 3 benzonatate (Tessalon Perles) 100 mg capsule Take 100 mg by mouth every 4 (four) hours as needed. clopidogreL (Plavix) 75 mg tablet Take 300 mg (4 tablets) the day before the procedure and 75 mg (1tablet) the morning of the procedure. 5 tablet 0 DME CPAP DME Order 1 each 0 fluticasone furoate-vilanteroL (Breo Ellipta) 100-25 mcg/actuation inhaler Inhale 1 puff daily. 180each 3 ibuprofen (ADVIL,MOTRIN) 200 mg tablet Take 400 mg by mouth as needed for pain. ipratropium-albuteroL (DuoNeb) 0.5-2.5 mg/3 mL nebulizer solution Inhale 3 mL by nebulization 4 (four) times a day as needed for wheezing or shortness of breath. 90 mL 11 nitroglycerin (NITROSTAT) 0.[address] 1 tablet (0.4 mg total) under the tongue every 5 (five) minutes as needed for chest pain. 30 tablet 0 Spiriva Respimat 2.5 mcg/actuation inhaler INHALE 2 PUFFS BY MOUTH ONCE DAILY 4 g 11 valsartan (Diovan) 160 mg tablet Take 1 tablet by mouth daily. [4] Allergies Allergen Reactions Penicillins Edema (Reselect Reaction) and Other (see comments) Penicillin injectables ONLY Sulfa (Sulfonamide Antibiotics) Hives (Reselect Reaction) and Hives only, no other systemic symptoms documented in this encounter ED Notes * Leonardo Jones M.D. - 06/13/2024 3:54 AM CDT I saw the patient with the medical student. I was present for or re-performed the History of Present Illness. I personally performed a Physical Exam and Medical Decision Making. I reviewed medical student documentation and agree or amended. Final Diagnoses: as of 06/13/24 0354 Pain Postoperative Unspecified Injury Radial Artery Forearm Level Right Initial The patient is a 63-year-old right-hand dominant woman who is status post recent right radial artery cardiac catheterization as well as right internal jugular vein catheterization, coming to the emergency department because of about 24 hours of right arm symptoms characterized by paresthesias in the radial, median, and ulnar nerve distributions with some median nerve predominance. The symptoms extend not only distal to the wrist but also proximal to the wrist interestingly. There is no visible abnormalities. We obtained imaging of the arteries and veins to look for clots or injuries and thereis concern for a arterial defect in the distal radius. I spoke with the vascular surgeon on-call who felt like there was nothing acutely they would do for this size of the defect. We also consulted hand surgery and they kindly came to see the patient and have recommended keeping the arm elevated, immobilization for comfort with the patient's own home brace. They will arrange outpatient follow up for her. I have asked the patient to take pictures of her hand daily just in case things should change including swelling or color. Leonardo Jones M.D. 06/13/24 0357 * Shanique Sutton - 06/13/2024 12:48 AM CDT SUBJECTIVE CHIEF COMPLAINT/REASON FOR VISIT Post-op Problem HISTORY OF PRESENT ILLNESS Patient is a 63-year-old female who presents with 24 hours of tingling and sharp pain in her R handand forearm. This is in the setting of a an angiogram completed 1 week ago which was part of a workup for worsening lower extremity swelling that has occurred over several months. The pain started yesterday and has gotten worse today. She describes it as a constant tingling with sporadic sharp pains occurring throughout the hand and forearm. Pain is elicited by touch and movement. She has tried [id number] pain medications and topical creams with no relief. She has not noticed any visual changes to the hand. REVIEW OF SYSTEMS All other systems reviewed and are negative. OBJECTIVE Initial Vitals Temperature 06/12/242206 36.5 ??C Pulse Rate 06/12/242206 77 Heart Rate -- Resp Rate 06/12/242206 18 Blood Pressure 06/12/242206 (!) 185/86 SpO2 06/12/242206 95 % Pain Score 06/13/24 0038 5 - Moderate pain PHYSICAL EXAMINATION Neck: Access site on the right neck completely healed. Cardiovascular: Regular rhythm and normal heart sounds. Edema: edema noted Lower extremities are significant for tense pitting edema Pulmonary/Chest: Effort normal and breath sounds normal. Musculoskeletal: Comments: Strength: Strength in R hand and wrist limited by pain. Normal strength in upper arm. Pulse: Normal symmetrical radial pulse Visual: Skin on palmar surface is dry and cracked with some skin breakdown bilaterally. Patient says this is normal for her in the winter. 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 Small access wound is visible on the right wrist. Neuro: Patient endorses tingling from the elbow down. Positive Tinel sign. She says that the pain is most significant in the 1st through 3rd digits. ASSESSMENT/PLAN Assessment and Plan Patient is a 63-year-old female who presents in pain right hand and forearm in the setting of angiogram with right radial and internal jugular access 1 week ago. The lack of visual changes and present pulses is reassuring. She is afebrile and has no symptoms of local infection. Our differential is broad given her atypical presentation and the lack of dermatomal distribution. -Venous US R UE - Inflammatory markers - CBC/ BNP . DIFFERENTIAL DIAGNOSES -nerve injury secondary to coronary angiogram procedure -local infection or inflammation in deep tissue -vascular insufficiency or occlusion -nerve entrapment. Shanique Sutton 06/13/24214 Cosigned by Leonardo Jones M.D. at 06/13/2024 7:14 AM CDT * Aide Almazan, R.N. - 06/12/2024 10:02 PM CDT Patient presents [facility] the [facility] ED via private vehicle for post-op problem. Patient states she had an angiogram 1 week ago. She states she was doing fine until yesterday when she developed pain in her wrist and hand. She states her neck site is sore, but the right hand is horrid. She is able to wiggle her fingers and close her fist, but states pain extends from just below angio site to fingers. No redness or swelling at site on wrist. She called her Cardiology team who referred her to the ED. Shehas tried tylenol and ibuprofen at home, as well as Voltaren gel without relief. No chest pain. Sheendorses shortness of breath but states this is chronic. Aide Almazan R.N. 06/12/242204 documented in this encounter Plan of Treatment Upcoming Encounters Date Type Department Care Team (Late st Contact Info) Description 06/28/2024 3:00 PM CDT Virtual Visit Division of Pulmonary Medicine in [place], [place] [address] [place] [phone] Anum Jacobson, AMEENA, C.N.P., D.N.P. [address] [place] [phone] 07/03/2024 2:00 PM CDT [facility] in [place], [place] [address] [place] [phone] Baylee Pike M.D. [address] [place] [phone] documented as of this encounter Procedures Procedure Name Priority Date/Time Associated Diagnosis Comments US UPPER EXTREMITY VEINS RIGHT RAD - Semiurgent (Fast; most ED patients; some inpatients) 06/13/2024 1:32 AM CDT US UPPER EXTREMITY ARTERIES RIGHT RAD - Semiurgent (Fast; most ED patients; some inpatients) 06/13/2024 1:32 AM CDT SEDIMENTATION RATE, B STAT 06/13/2024 12:53 AM CDT CBC WITH DIFFERENTIAL, B STAT 06/13/2024 12:53 AM CDT C-REACTIVE PROTEIN (CRP), S/P STAT 06/13/2024 12:53 AM CDT CREATINE KINASE (CK), S STAT 06/13/2024 12:53 AM CDT BASIC METABOLIC PANEL, S/P STAT 06/13/2024 12:53 AM CDT documented in this encounter Results * US Upper Extremity Veins Right (06/13/2024 1:32 AM CDT) Anatomical Region Laterality Modality Upper Extremity, Ultrasound RST LOS, Ultrasound ARZ LOS, Ultrasound FLA LOS Right Ultrasound Impressions 06/13/2024 8:38 AM CDT Negative for acute DVT in the right upper extremity. Narrative 06/13/2024 8:38 AM CDT EXAM: US UPPER EXTREMITY VEINS RIGHT Exam performed with color and spectral Doppler analysis. COMPARISON: None. FINDINGS: RIGHT: Internal Jugular Vein: Negative. Innominate Vein: Negative. Subclavian Vein: Negative. Axillary Vein: Negative. Brachial Veins: Negative. Cephalic Vein: Negative. Basilic Vein: Negative. Information on venous thrombosis and management can be found on the [employer] site. Link https://[employer].s[email or web address]/topic/clinical-answers/cnt-53229620/[email or web address] [address] Procedure Note Maksim Montoya M.D. - 06/13/2024 EXAM: US UPPER EXTREMITY VEINS RIGHT Exam performed with color and spectral Doppler analysis. COMPARISON: None. FINDINGS: RIGHT: Internal Jugular Vein: Negative. Innominate Vein: Negative. Subclavian Vein: Negative. Axillary Vein: Negative. Brachial Veins: Negative. Cephalic Vein: Negative. Basilic Vein: Negative. Information on venous thrombosis and management can be found on the[employer] site. [email or web address]/topic/clinical-answers/cnt-99586608/cpm -2049 1625 IMPRESSION: Negative for acute DVT in the right upper extremity. us Leonardo HUNTER US PROCEDURES F inal Result * US Upper Extremity Arteries Right (06/13/2024 1:32 AM CDT) Anatomical Region Laterality Modality Upper Extremity, Ultrasound RST LOS, Ultrasound ARZ LOS, Ultrasound FLA LOS, Procedural, Vascular Interventional NWWI LOS Right Ultrasound Impressions 06/13/2024 8:38 AM CDT Tiny tract from the distal right radial artery near the site of the recent catheterization without any Doppler internal flow. This may represent healing postprocedural soft tissue tract from recent catheterization or possibly a thrombosed pseudoaneurysm. No evidence for a patent pseudoaneurysm on this exam. Narrative 06/13/2024 8:38 AM CDT EXAM: US UPPER EXTREMITY ARTERIES RIGHT Exam performed with color and spectral Doppler analysis. COMPARISON: None FINDINGS: RIGHT Innominate: No significant stenosis in visualized segment. Subclavian: Relative mild elevated velocity in the proximal subclavian artery at 178 cm/s may represent mild stenosis. Axillary: No significant stenosis. Brachial: No significant stenosis. Radial: Mild relative elevated velocity (81 cm/second) in the distal radial artery near the site of recent catheterization may be secondary to mild narrowing in the setting of vasospasm or edema at that location. Tiny hypoechoic tract seen within the soft tissues immediately adjacent to the distal right radial artery near the site of the recent catheterization without any internal Doppler flow. Ulnar: No significant stenosis. Procedure Note Maksim Montoya M.D. - 06/13/2024 EXAM: US UPPER EXTREMITY ARTERIES RIGHT Exam performed with color and spectral Doppler analysis. COMPARISON: None FINDINGS: RIGHT Innominate: No significant stenosis in visualized segment. Subclavian: Relative mild elevated velocity in the proximal subclavianartery at 178 cm/s may represent mild stenosis. Axillary: No significant stenosis. Brachial: No significant stenosis. Radial: Mild relative elevated velocity (81 cm/second) in the distalradial artery near the site of recent catheterization may be secondary tomild narrowing in the setting of vasospasm or edema at that location. Tinyhypoechoic tract seen within the soft tissues immediately adjacent to the distal right radial artery nearthe site of the recent catheterization without any internal Doppler flow. Ulnar: No significant stenosis. IMPRESSION: Tiny tract from the distal right radial artery near the site of the recentcatheterization without any Doppler internal flow. This may representhealing postprocedural soft tissue tract from recent catheterization orpossibly a thrombosed pseudoaneurysm. No evidence for a patent pseudoaneurysm on this exam. Brad Wilcox M.D., M.S. IMG US PROCEDURES Fin al Result * CK (Creatine Kinase) (06/13/2024 12:53 AM CDT) Creatine Kinase (CK), S 89 26 - 192 U/L 06/13/2024 2:09 AM CDT DTL Blood (Blood, Venous) 06/13/2024 12:53 AM CDT 06/13/2024 1:45 AM CDT Leonardo Jones M.D. LAB BLOOD ADD-ON Fi nal Result Performing Organization Address City/[facility]/ZIP Co de Phone Number [facility] [address] [place] [address] * (ABNORMAL) CRP (C-Reactive Protein) (06/13/2024 12:53 AM CDT) [facility] C-Reactive Protein (CRP), S 5.3(H) <5.0 mg/L 06/13/2024 2:09 AM CDT DT Blood (Blood, Venous) 06/13/2024 12:53 AM CDT 06/13/2024 1:45 AM CDT Leonardo Jones M.D. LAB BLOOD ADD-ON Fi nal Result [facility] [address] [place] [address] * (ABNORMAL) CBC with Differential, Blood (06/13/2024 12:53 AM CDT) [facility] Hemoglobin 11.4(L) 11.6 - 15.0 g/dL 06/13/2024 1:00 AM CDT [facility] Hematocrit 35.2(L) 35.5 - 44.9 % 06/13/2024 1:00 AM CDT [facility] Erythrocytes 3.73(L) 3.92 - 5.13 x10(12)/L 06/13/2024 1:00 AM CDT [facility] MCV 94.4 78.2 - 97.9 fL 06/13/2024 1:00 AM CDT [facility] RBC Distrib Width 13.5 12.2 - 16.1 % 06/13/2024 1:00 AM CDT [facility] Platelet Count 293 157 - 371 x10(9)/L 06/13/2024 1:00 AM CDT [facility] Leukocytes 8.9 3.4 - 9.6 x10(9)/L 06/13/2024 1:00 AM CDT [facility] Neutrophils 5.23 1.56 - 6.45 x10(9)/L 06/13/2024 1:00 AM CDT [facility] Lymphocytes 2.37 0.95 - 3.07 x10(9)/L 06/13/2024 1:00 AM CDT [facility] Monocytes 0.86(H) 0.26 - 0.81 x10(9)/L 06/13/2024 1:00 AM CDT [facility] Eosinophils 0.30 0.03 - 0.48 x10(9)/L 06/13/2024 1:00 AM CDT [facility] Basophils 0.12(H) 0.01 - 0.08 x10(9)/L 06/13/2024 1:00 AM CDT [facility] Blood (Blood, Venous) 06/13/2024 12:53 AM CDT 06/13/2024 12:57 AM CDT us Leonardo Jones M.D. LAB BLOOD ADD-ON Fi nal Result [facility] [facility] [address] [place] [address], [facility] [address] [place] [address] [facility] [address] [place] [address] * Basic Metabolic Panel (06/13/2024 12:53 AM CDT) [facility] Potassium, P 4.1 3.6 - 5.2 mmol/L 06/13/2024 1:32 AM CDT DTL Sodium, P 139 135 - 145 mmol/L 06/13/2024 1:32 AM CDT DTL Chloride, P 105 98 - 107 mmol/L 06/13/2024 1:32 AM CDT DTL Bicarbonate, P 24 22 - 29 mmol/L 06/13/2024 1:32 AM CDT DTL Anion Gap, P 10 7 - 15 06/13/2024 1:32 AM CDT DTL BUN (Blood Urea Nitrogen), P 17 6 - 21 mg/dL 06/13/2024 1:32 AM CDT DTL Creatinine 0.77 0.59 - 1.04 mg/dL 06/13/2024 1:32 AM CDT DTL Estimated GFR (eGFR) 87 >=60 mL/min/BSA 06/13/2024 1:32 AM CDT DTL Comment: Estimated GFR calculated using the 2020 CKD_EPI creatinine equation. Calcium, Total, P 9.2 8.8 - 10.2 mg/dL 06/13/2024 1:32 AM CDT DTL Glucose, P 102 70 - 140 mg/dL 06/13/2024 1:32 AM CDT DTL Blood (Blood, Venous) 06/13/2024 12:53 AM CDT 06/13/2024 1:17 AM CDT us Leonardo Jones M.D. LAB BLOOD ADD-ON Fi nal Result [facility] [address] [place] [address], [facility] DTL [facility] [address] [place] [address] * (ABNORMAL) Sedimentation Rate (06/13/2024 12:53 AM CDT) Sedimentation Rate, B 24(H) 2 - 22 mm/h 06/13/2024 2:23 AM CDT DTL Blood (Blood, Venous) 06/13/2024 12:53 AM CDT 06/13/2024 1:29 AM CDT Leonardo Jones M.D. LAB BLOOD ADD-ON Fi nal Result [facility] [address] [place] [address], [facility] [place] [address] [place] [address] documented in this encounter Visit Diagnoses Diagnosis Unspecified Injury Radial Artery Forearm Level Right Initial- Primary Pain Postoperative documented in this encounter Additional Health Concerns Assessment Noted Time PHQ-9 Depression Total Score: 6 04/29/19 20 12:40 PM SECOND FACING BASTER documented as of this encounter Care Teams Product Support Consultant Relationship Specialty Start Date End Date Elsewhere, Pcp PCP - General Internal Medicine 04/24/23 documented as of this encounter
--- OUTSIDE RECORDS SUMMARY | 2024-06-28 07:58 | XMS_ITS | Clinical Summary ---
Author Organization [employer] [facility] Address [address] [place] [id number] Care Team Providers Care Load Out Person Name Role Phone Rupali Tate MD Primary Care Provider [phone] Allergies Active Allergy Reactions Criticality Noted Date Comments Penicillins Edema 02/18/2016 Penicillin injectables ONLY Sulfa (Sulfonamide Antibiotics) Hives 02/18/2016 Medications VENTOLIN HFA 90 mcg/actuation inhaler 3 9 Active predniSONE (DELTASONE) 20 mg tablet Take 20 mg by mouth once daily. 0 9 Active venlafaxine (EFFEXOR XR) 150 mg Extended-Release capsule Take 150 mg by mouth once daily in the afternoon. 3 9 Active methylPREDNISolon e (MEDROL DOSEPAK) 4 mg tablet Take 4 mg by mouth once daily with evening meal. 0 9 Active atorvastatin (LIPITOR) 20 mg tabletIndications :Atherosclerosis of coronary artery, angina presence unspecified, unspecified vessel or lesion type, unspecified whether stillaguamish or transplanted heart Take 1 tablet by mouth once daily. 90 tablet 3 9 Active Active Problems No known active problems Encounters Date Type Department Care Team Description 04/29/2024 8:00 AM SCIENCE EDITOR Ancillary Procedure [facility] [address] [place] [address] from Last 3 Months Social History Tobacco Use Types Packs/Day Years Used Date Smoking Tobacco: Every Day Cigarettes 0.5 48.5 Started: 01/03/1976 Smokeless Tobacco: Never Tobacco Cessation:Ready [...] Paying Living Expenses Not on file 05/04/2021 Comments No Sex and Gender Information Value Date Recorded Sex Assigned at Not on file Legal Sex Female 8:02 AM SCIENCE EDITOR Gender Identity Not on file Sexual Orientation Not on file Obstetrics History Last Filed Vital Signs Vital Sign Reading Time Taken Comments Blood Pressure 126/68 01/02/2019 12:51 PM CDT Pulse 102 01/02/2019 12:51 PM CDT Temperature 36.8 C (98.3 F) 02/18/2016 10:05 AM SCIENCE EDITOR Respiratory Rate - - Oxygen Saturation 95% [...] age 15-65 12/06/1975 Hepatitis C screening for age 18-79 1978 Tetanus booster 1980 Colonoscopy through age 75 2005 Lipids for age 45-75 2005 Mammogram for age 45-75 2005 Pneumococcal series for age 50+ (1 of 1 - PCV) 2010 Zoster (shingles) series for age 50+ (1 of 2) 2010 Pap test for age 21-65 06/21/2019 06/20/2016, 2016 BMI (ht and wt on same day) for age 18+ 01/03/2020 1 , 02/18/2016 COVID-19 vaccine series (1 - 2024-25 season) 2023 Influenza Vaccine (Season Ended) 2024 RSV vaccine for adults or pr egnancy (1 - 1-dose 75+ series) 12/06/2035 Procedures Procedure Name Priority Date/Time Associated Diagnosis Comments ECHO TTE COMPLETE WO CONTRAST Routine 04/29/2024 8:43 AM SCIENCE EDITOR Other forms of dyspnea SENIOR INTERNET SALES CONSULTANT THIN PREP PAP SCREEN IMAGED Routine 06/20/2016 5:30 PM CDT from Last 3 Months or Most Recently Relevant to Health Maintenance Results * ECHO TTE COMPLETE WO CONTRAST (04/29/2024 8:43 AM SCIENCE EDITOR) AORTIC VALVE MEAN PG 9 mmHg EJECTION FRACTION 64 % LVEDD 4.3 cm EJECTION FRACTION 60 - 65% Anatomical Region Laterality Modality Ultrasound 04/29/2024 8:08 AM SCIENCE EDITOR Narrative 04/29/2024 10:30 AM SCIENCE EDITOR ECHOCARDIOGRAM MS. GENEVIEVE MAYORGA : 1960 63 years Study Date: 04/29/2024 8:08:46 AM Gender: F BP: 192/77 mmHg Height: 155.00 cm BSA: 1.93 m Weight: 95.00 kg Tech: ERIC Referring MD: RUPALI TATE Site: [facility] Reading Location: Mobile OP Patient Location: Outpatient. Procedure: 2D, Color Doppler and Spectral Doppler. Indication for study: Dyspnea Cardiac Rhythm: Normal sinus.Study quality: Good. Final Impressions: 1. Normal LV size, normal wall thickness, normal global systolic function with an estimated EF of 60 - 65%. 2. The aortic valve is sclerotic, no stenosis and no regurgitation. Comparison Compared to prior exam of 2018, there has been no significant change. Chamber Sizes and Function Normal left ventricular size, normal wall thickness, normal global systolic function with an estimated EF of 60 - 65%. No resting regional wall motion abnormality visualized. Left atrial size is normal. Right ventricular cavity size is normal, global systolic RV function is normal. The right atrium is normal. Right atrial area is 13 cm . The pulmonary artery is of normal size and origin. The sinus of Valsalva is normal sized. The ascending aorta is normal sized. Valves, RV Pressures and Diastolic Function The aortic valve is sclerotic, no stenosis and no regurgitation. The mitral valve is normal in structure, no mitral regurgitation. Normal diastolic function. The tricuspid valve is normal in structure. Tricuspid regurgitation is regurgitation is not evident. The pulmonic valve is normal. No pulmonary regurgitation. TTE images do not appear adequate for transcather intervention with patient supine. Masses, Effusion, Shunts There is no pericardial effusion. The inferior vena cava is dilated, respiratory size variation less than 50%. No left to right shunting was detected by limited color flow Doppler interrogation of the interatrial septum. MEASUREMENTS AND CALCULATIONS 2-D Measurements and LV Function: LVID (d) 4.3 cm LV FS% (2D) 45 % LVID (s) 2.4 cm LVOT diameter 2.1 cm IVS (d) 1.1 cm HR 80 bpm LVPW (d) 1.1 cm LA Vol index 22 ml/m2 Ao Sinus 3.0 cm RA area 13 cm Asc Ao 3.1 cm RV Max 4C (d) 3.0 cm Diastology: Mitral Tissue Doppler E Peak 0.9 m/s e', Septum 0.08 m/s A Peak 0.7 m/s e', Lateral 0.13 m/s E/A 1.3 E/e' Average 8.96 DT 133 msec Aortic Valve: Vmax 2.0 m/s SELENA (V) 2.12 cm VTI 0.49 m SELENA (I) 1.91 cm LVOT V max 1.3 m/s Max PG 17 mmHg LVOT VTI 0.27 m Mean PG 9 mmHg SV 93 ml Dim Index 0.56 SV index 48 ml/m CO 7.4 l/min CI 3.9 l/min/m Mitral Valve: MVA 5.7 cm MV P 1/2 39 msec Tricuspid Valve and estimated PA pressures: TAPSE 2.0 cm . This study was interpreted by an [facility] accredited facility. CC: [facility] ([facility]) [facility]. Final Procedure Note Theodore Chong MD - 04/29/2024 ECHOCARDIOGRAM MS. GENEVIEVE MAYORGA : 1960 63 years Study Date: 04/29/2024 8:08:46 AM Gender: F BP: 192/77 mmHg Height: 155.00 cm BSA: 1.93 m Weight: 95.00 kg Tech: ERIC Referring MD: RUPALI TATE Site: [facility] Reading Location: Mobile OP Patient Location: Outpatient. Procedure: 2D, Color Doppler and Spectral Doppler. Indication for study: Dyspnea Cardiac Rhythm: Normal sinus.Study quality: Good. Final Impressions: 1. Normal LV size, normal wall thickness, normal global systolic functionwith an estimated EF of 60 - 65%. 2. The aortic valve is sclerotic, no stenosis and no regurgitation. Comparison Compared to prior exam of 2018, there has been no significant change. Chamber Sizes and Function Normal left ventricular size, normal wall thickness, normal globalsystolic function with an estimated EF of 60 - 65%. No resting regionalwall motion abnormality visualized. Left atrial size is normal. Rightventricular cavity size is normal, global systolic RV function is normal.The right atrium is normal. Right atrial area is 13 cm . The pulmonaryartery is of normal size and origin. The sinus of Valsalva is normalsized. The ascending aorta is normal sized. Valves, RV Pressures and Diastolic Function The aortic valve is sclerotic, no stenosis and no regurgitation. Themitral valve is normal in structure, no mitral regurgitation. Normaldiastolic function. The tricuspid valve is normal in structure. Tricuspidregurgitation is regurgitation is not evident. The pulmonic valve isnormal. No pulmonary regurgitation. TTE images do not appear adequate fortranscather intervention with patient supine. Masses, Effusion, Shunts There is no pericardial effusion. The inferior vena cava is dilated,respiratory size variation less than 50%. No left to right shunting wasdetected by limited color flow Doppler interrogation of the interatrialseptum. MEASUREMENTS AND CALCULATIONS 2-D Measurements and LV Function: LVID (d) 4.3 cm LV FS% (2D) 45 % LVID (s) 2.4 cm LVOT diameter 2.1 cm IVS (d) 1.1 cm HR 80 bpm LVPW (d) 1.1 cm LA Vol index 22 ml/m2 Ao Sinus 3.0 cm RA area 13 cm Asc Ao 3.1 cm RV Max 4C (d) 3.0 cm Diastology: Mitral Tissue Doppler E Peak 0.9 m/s e', Septum 0.08 m/s A Peak 0.7 m/s e', Lateral 0.13 m/s E/A 1.3 E/e' Average 8.96 DT 133 msec Aortic Valve: Vmax 2.0 m/s SELENA (V) 2.12 cm VTI 0.49 m SELENA (I) 1.91 cm LVOT V max 1.3 m/s Max PG 17 mmHg LVOT VTI 0.27 m Mean PG 9 mmHg SV 93 ml Dim Index 0.56 SV index 48 ml/m CO 7.4 l/min CI 3.9 l/min/m Mitral Valve: MVA 5.7 cm MV P 1/2 39 msec Tricuspid Valve and estimated PA pressures: TAPSE 2.0 cm . This study was interpreted by an [facility] accredited facility. CC: [facility] (med records) [facility]. Final us Rupali Tate MD ECHO ORD Final Resu lt * SENIOR INTERNET SALES CONSULTANT THIN PREP PAP SCREEN IMAGED (06/20/2016 5:30 PM CDT) Case Report Gynecologic Cytology Report Case: [id number] Authorizing Provider: Unknown, Doctor Collected: 06/20/2016 1730 First Screen: Perlita Mann Received: 06/22/2016 1226 Specimen: SENIOR INTERNET SALES CONSULTANT ThinPrep Vial Screening, Cervical/Vaginal 06/30/2016 11:31 AM CDT [facility] INTERPRETATION/ RESULT NEGATIVE FOR INTRAEPITHELIAL LESION OR MALIGNANCY (NIL) (none) 06/30/2016 11:31 AM CDT [facility] at 1131 CDT SPECIMEN ADEQUACY Satisfactory for evaluation Endocervical component present 06/30/2016 11:31 AM CDT [facility] HPV REQUEST HPV and PAP 06/30/2016 11:31 AM CDT [facility] Last Pap Date 02/20/2012 06/30/2016 11:31 AM CDT [facility] Last Pap Result NIL 7 11:31 AM CDT [facility] Menstrual Status 06/30/2016 11:31 AM CDT [facility] Comment:N/A Automated Review Successful 06/30/2016 11:31 AM CDT [facility] Comment:Specimen processed s uccessfully by automated surg rn device, Accur[employer]ioPrep Imaging System, [employer] ANCILLARY TESTING SENIOR INTERNET SALES CONSULTANT HPV Ordered, Please see separate report 06/30/2016 11:31 AM T [facility] Note The pap test is a screening technique, not a diagnostic procedure. It is used primarily to screen for squamous cancers and precursor lesions. Published studies have shown that it is subject to both false negative and false positive results. The pap test should not be used as the sole means to diagnose or exclude pre-malignant and malignant lesions. Interpreted at [facility] ([facility], [facility], [facility], [facility], [facility], [facility], [facility]) 06/30/2016 11:31 AM T [facility] Other (Cervical/Vagina l) 06/20/2016 5:30 PM CDT 06/22/2016 12:26 PM CDT us Doctor Unknown PATHOLOGY/CYTOLOGY Final Result [facility] [address] [place] [address], from Last 3 Months or Most Recently Relevant to Health Maintenance Insurance [place] [address] Care Teams Load Out Person Relationship Specialty Start Date End Date Rupali Tate MD [address] [place] [id number] PCP - General Internal Medicine 02/22/10
--- OUTSIDE RECORDS SUMMARY | 2024-06-28 07:58 | XMS_ITS | Encounter Summary ---
Author Organization [facility] Address [address] [place] [address] Care Team Providers Care Welcome Desk Agent Name Role Phone Elsewhere, Pcp Primary Care Provider Unavailabl e Reason for Visit * Reason Onset Date Comments cardiac rehabilitation discussion 06/12/2024 Encounter Details Date Type Department Care Team (Latest Contact Info) Description 06/12/2024 Clinical Communication Department of Cardiovascular Medicine in [place], [place] [address] [place] [address] Sarah Milligan [address] [place] [address] cardiac rehabilitation discussion Social History Tobacco Use Types Packs/Day Years Used Date Smoking Tobacco: Former Cigarettes 1 49.1 0 03/14/1974 - 04/24/2023 Smokeless Tobacco: Never Alcohol Use Standard Drinks/Week Comments Yes 0 (1 standard drink = 0.6 oz pur e alcohol) Very very rarely [facility] Utilities Answer Date Recorded In [...] Never 07/20/2019 How often do you attend evangelical or catholic serv ices? Never 07/20/2019 Active Member of [...] Answer Date Recorded PHQ-2 Score 2 04/29/2019 [facility] of Occupat ional Health - Occupational Stress [...] your living situation today? I have a [facility] place to live 05/23/2024 Education Answer Date Recorded What is the highest level of school you have completed or the highest degree you have received? Associate degree: academic program 02/12/2019 Comments No Sex and Gender Information Value Date Recorded Sex Assigned at Female 05/07/2023 12:13 PM REFINERY OPERATOR HEL[employer]UDE UNIT Legal Sex Female 3:09 AM REFINERY OPERATOR [employer] Gender Identity Female 07/20/2019 7:51 PM CDT Sexual Orientation Straight 07/20/2019 7: 51 PM CDT documented as of this encounter Miscellaneous Notes * Telephone Encounter - Sarah Milligan - 06/12/2024 2:58 PM CDT Patient not seen. Telephone call to patient was to make a local cardiac rehabilitation referral. Left a message stating that this call was for a non- emergent follow up and that the patient can call us back at [phone] or someone will try and call again tomorrow. Of note, patient does not have a diagnosis that is typically covered for cardiac rehab, so we will have her check with her private insurance to see if they will cover for HFpEF, and also we can offerthe ICP program, and lastly, she might qualify for pulmonary rehab. documented in this encounter Plan of Treatment Upcoming Encounters Date Type Department Care Team (Late st Contact Info) Description 06/28/2024 3:00 PM CDT Virtual Visit Division of Pulmonary Medicine in [place], [place] [address] [place] [address] Anum Jacobson APRN, C.N.P., D.N.P. [address] [place] [phone] 07/03/2024 2:00 PM CDT [facility] in [place], [place] [address] [place] [phone] Baylee Pike M.D. [address] [place] [phone] documented as of this encounter Visit Diagnoses Not on filedocumented in this encounter Additional Health Concerns Assessment Noted Time PHQ-9 Depression Total Score: 6 04/29/19 20 12:40 PM REFINERY OPERATOR [employer] documented as of this encounter Care Teams Welcome Desk Agent Relationship Specialty Start Date End Date Elsewhere, Pcp PCP - General Internal Medicine 04/24/23 documented as of this encounter
--- OUTSIDE RECORDS SUMMARY | 2024-06-28 07:58 | XMS_ITS | Encounter Summary ---
Author Organization [facility] Address [address] [place] [address] Care Team Providers Care Workers Compensation Paralegal Name Role Phone Elsewhere, Pcp Primary Care Provider Unavailabl e Reason for Referral * Outpatient (Routine) - Authorized Specialty Diagnoses / Procedures Referred By Carey t Referred To Contact Diagnoses Atherosclerotic Heart Disease [place] Coronary Artery With Other Forms Angina Pectoris (Stable Angina/Angina Of Exertion) Dyspnea On Exertion Procedures Cardiac Rehab Program Chuck Townsend M.D., Ph.D. [address] [place] [phone] Phone: tel: fax: [facility] Referral ID Status Reason Start Date Expiration Date V isits Requested Visits Authorized [id number] Authorized 06/12/2024 09/12/2025 50 50 Encounter Details Date Type Department Care Team (Latest Contact Info) Description 06/12/2024 Orders Only Department of Cardiovascular Medicine in [place], [place] [address] [place] [phone] Chuck Townsend M.D., Ph.D. [address] [place] [phone] Atherosclerotic Heart Disease [place] Coronary Artery With Other Forms Angina Pectoris (Stable Angina/Angina Of Exertion) (Primary Dx); Dyspnea On Exertion Social History Tobacco Use Types Packs/Day Years Used Date Smoking Tobacco: Former Cigarettes 1 49.1 0 03/14/1974 - 04/24/2023 Smokeless Tobacco: Never Alcohol Use Standard Drinks/Week Comments Yes 0 (1 standard drink = 0.6 oz pur e alcohol) Very very rarely [facility] Utilities Answer Date Recorded In the past 12 months has e [employer], gas, oil, or water [employer] threatened to shut off services in your [...] How often do you attend tenriism or baptist serv ices? Never 07/20/2019 Active Member of [...] Answer Date Recorded PHQ-2 Score 2 04/29/2019 [place] of Occupat ional Health - Occupational Stress [...] your living situation today? I have a [facility] place to live 05/23/2024 Education Answer Date Recorded What is the highest level of school you have completed or the highest degree you have received? Associate degree: academic program 02/12/2019 Comments No Sex and Gender Information Value Date Recorded Sex Assigned at Female 05/07/2023 12:13 PM CARDIOLOGY TECHNOLOGIST Legal Sex Female 3:09 AM CARDIOLOGY TECHNOLOGIST Gender Identity Female 07/20/2019 7:51 PM CDT Sexual Orientation Straight 07/20/2019 7: 51 PM CDT documented as of this encounter Plan of Treatment Upcoming Encounters Date Type Department Care Team (Late st Contact Info) Description 06/28/2024 3:00 PM CDT Virtual Visit Division of Pulmonary Medicine in [place], [place] [address] [place] [address] Anum Jacobson APRN, C.N.P., D.N.P. [address] [place] [phone] 07/03/2024 2:00 PM CDT Tele[facility]icine [facility] in [place], [place] [address] [place] [phone] Baylee Pike M.D. [address] [place] [phone] Scheduled Orders Name Type Priority Associated Diagnoses Orde r Schedule Cardiac Rehab Program Card Rehab Routine Atherosclerotic Heart Disease [place] Coronary Artery With Other Forms Angina Pectoris (Stable Angina/Angina Of Exertion) Dyspnea On Exertion 50 Occurrences starting 06/12/2024 until 06/12/2025 documented as of this encounter Visit Diagnoses Diagnosis Atherosclerotic Heart Disease [place] Coronary Artery With Other Forms Angina Pectoris (Stable Angina/Angina Of Exertion)- Primary Dyspnea On Exertion documented in this encounter Additional Health Concerns Assessment Noted Time PHQ-9 Depression Total Score: 6 04/29/19 20 12:40 PM CARDIOLOGY TECHNOLOGIST documented as of this encounter Care Teams Workers Compensation Paralegal Relationship Specialty Start Date End Date Elsewhere, Pcp PCP - General Internal Medicine 04/24/23 documented as of this encounter
--- OUTSIDE RECORDS SUMMARY | 2024-06-28 07:58 | XMS_ITS | Encounter Summary ---
Author Organization [facility] Address [address] [place] [address] Care Team Providers Care Manager Domestic Name Role Phone Elsewhere, Pcp Primary Care Provider Unavailabl e Encounter Details Date Type Department Care Team (Latest Contact Info) Description 05/29/2024 12:11 PM CDT - 05/29/2024 12:41 PM CDT Hospital Encounter Department of Laboratory Medicine and Pathology, [facility], in [place], [place] [address] [place] [phone] Chuck Townsend M.D., Ph.D. [address] [place] [phone] Atherosclerotic Heart Disease [place] Coronary Artery With Other Forms Angina Pectoris [...] e alcohol) Very very rarely [facility] Utilities Answer Date Recorded In [...] Never 07/20/2019 How often do you attend spiritism or christian serv ices? Never 07/20/2019 Active [...] Date Recorded PHQ-2 Score 2 04/29/2019 [facility] of Occupat ional Health - [...] your living situation today? I have a [facility] place to live 05/23/2024 Education Answer Date Recorded What is the highest level of school you have completed or the highest degree you have received? Associate degree: academic program 02/12/2019 Comments No Sex and Gender Information Value Date Recorded Sex Assigned at Female 05/07/2023 12:13 PM BARRELHEAD INSPECTOR Legal Sex Female 3:09 AM BARRELHEAD INSPECTOR Gender Identity Female 07/20/2019 7:51 PM [...] every 4 (four) hours as needed. 02/24/2022 DME CPAPIndications:O bstructive Sleep Apnea Adult DME [...] Virtual Visit Division of Pulmonary Medicine in [place], [place] [address] [place] [phone] Anum Jacobson, AMEENA, C.N.P., D.N.P. [address] [place] [phone] 07/03/2024 2:00 PM CDT [facility] in [place], [place] [address] [place] [phone] Baylee Pike M.D. [address] [place] [phone] documented as of this encounter Procedures Procedure Name Priority Date/Time Associated Diagnosis Comments NT-PRO B-TYPE NATRIURETIC PEPTIDE (BNP), S Routine 05/29/2024 12:28 PM CDT Atherosclerotic Heart Disease [place] Coronary Artery With Other Forms Angina Pectoris (Stable Angina/Angina Of Exertion) Hypertension Essential Primary Edema Pitting Dyspnea On Exertion BASIC METABOLIC PANEL, S/P Routine 05/29/2024 12:28 PM CDT Atherosclerotic Heart Disease [place] Coronary Artery With Other Forms Angina Pectoris (Stable Angina/Angina Of Exertion) Hypertension Essential Primary Edema Pitting Dyspnea On Exertion documented in this encounter Results * NT-Pro B-Type Natriuretic Peptide (BNP) (05/29/2024 12:28 PM CDT) NT-Pro BNP 62 <=226 pg/mL 05/29/2024 2:29 PM CDT DTL Comment: NT-proBNP values less than 300 pg/mL [...] absence of renal failure. Blood (Blood, Venous) 05/29/2024 12:28 PM CDT 05/29/2024 1:47 PM CDT us Chuck Townsend M.D., Ph.D. LAB BLOOD ADD-ON Fi nal Result [facility] [place] [address] [place] [address], [place] DTL [facility] [address] [place] [address] * Basic Metabolic Panel (05/29/2024 12:28 PM CDT) Potassium, S 4.2 3.6 - 5.2 mmol/L 05/29/2024 2:29 PM CDT DTL Sodium, S 140 135 - 145 mmol/L 05/29/2024 2:29 PM CDT DTL Chloride, S 103 98 - 107 mmol/L 05/29/2024 2:29 PM CDT DTL Bicarbonate, S 25 22 - 29 mmol/L 05/29/2024 2:29 PM CDT DTL Anion Gap 12 7 - 15 05/29/2024 2:29 PM CDT DTL BUN (Blood Urea Nitrogen), S 9 6 - 21 mg/dL 05/29/2024 2:38 PM CDT DTL Creatinine 0.63 0.59 - 1.04 mg/dL 05/29/2024 2:29 PM CDT DTL Estimated GFR (eGFR) >90 >=60 mL/min/BSA 05/29/2024 2:29 PM CDT DTL Comment: Estimated GFR calculated using the 2020 CKD_EPI creatinine equation. Calcium, Total, S 9.4 8.8 - 10.2 mg/dL 05/29/2024 2:29 PM CDT DTL Glucose, S 119 70 - 140 mg/dL 05/29/2024 2:29 PM CDT DTL Blood (Blood, Venous) 05/29/2024 12:28 PM CDT 05/29/2024 1:47 PM CDT Chuck Townsend M.D., Ph.D. LAB BLOOD ADD-ON Fi nal Result [facility] [address] [place] [address], [facility] [address] [place] [address] documented in this encounter Visit Diagnoses Diagnosis Atherosclerotic Heart Disease [place] Coronary Artery With Other Forms Angina Pectoris (Stable Angina/Angina Of Exertion) Hypertension Essential Primary Edema Pitting Dyspnea On Exertion documented in this encounter Additional Health Concerns Assessment Noted Time PHQ-9 Depression Total Score: 6 04/29/19 20 12:40 PM BARRELHEAD INSPECTOR documented as of this encounter Care Teams Manager Domestic Relationship Specialty Start Date End Date Elsewhere, Pcp PCP - General Internal Medicine 04/24/23 documented as of this encounter
--- OUTSIDE RECORDS SUMMARY | 2024-06-28 07:58 | XMS_ITS | Encounter Summary ---
Author Organization [facility] Address [address] [place] [address] Care Team Providers Care Beer Runner Name Role Phone Elsewhere, Pcp Primary Care Provider Unavailabl e Encounter Details Date Type Department Care Team (Latest Contact Info) Description 06/13/2024 3:35 AM CDT Ancillary Procedure Department of Plastic and Reconstructive Surgery Social History Tobacco Use Types Packs/Day Years Used Date Smoking Tobacco: Former Cigarettes 1 49.1 0 03/14/1974 - 04/24/2023 Smokeless Tobacco: Never Alcohol Use Standard Drinks/Week Comments Yes 0 (1 standard drink = 0.6 oz pur e alcohol) Very very rarely [facility] Utilities Answer Date Recorded In the past 12 months has [facility] [employer], gas, oil, or water [employer] threatened to shut off services in your [...] Never 07/20/2019 How often do you attend anabaptist or spiritism serv ices? Never 07/20/2019 Active [...] Answer Date Recorded PHQ-2 Score 2 04/29/2019 [facility] of Occupat ional Health - Occupational [...] your living situation today? I have a [facility] place to live 05/23/2024 Education Answer Date Recorded What is the highest level of school you have completed or the highest degree you have received? Associate degree: academic program 02/12/2019 Comments No Sex and Gender Information Value Date Recorded Sex Assigned at Female 05/07/2023 12:13 PM SYS DIR Legal Sex Female 3:09 AM SYS DIR Gender Identity Female 07/20/2019 7:51 PM CDT Sexual Orientation Straight 07/20/2019 7: 51 PM CDT documented as of this encounter Plan of Treatment Upcoming Encounters Date Type Department Care Team (Late st Contact Info) Description 06/28/2024 3:00 PM CDT Virtual Visit Division of Pulmonary Medicine in [place], [place] [address] [place] [phone] Anum Jacobson, AMEENA, C.N.P., D.N.P. [address] [place] [phone] 07/03/2024 2:00 PM CDT [facility] in [place], [place] [address] [place] [phone] Baylee Pike M.D. [address] [place] [phone] documented as of this encounter Procedures Procedure Name Priority Date/Time Associated Diagnosis Comments PLASTIC AND RECON SURGERY IMAGE EXAM Routine 06/13/2024 3:35 AM CDT documented in this encounter Results * Hand-Plastic And Recon Surgery Image Exam (06/13/2024 3:35 AM CDT) 06/13/2024 3:33 AM CDT Narrative [facility] - 06/13/2024 3:35 AM CDT This order has been created and auto-finalized to support the import of images acquired without order. The clinical documentation to support these images can be found on the encounter that produced images. us Provider Not In System IMG NON RAD IMAGING PROCE DURES Final Result [facility] NA documented in this encounter Visit Diagnoses Not on filedocumented in this encounter Additional Health Concerns Assessment Noted Time PHQ-9 Depression Total Score: 6 04/29/19 20 12:40 PM SYS DIR documented as of this encounter Care Teams Beer Runner Relationship Specialty Start Date End Date Elsewhere, Pcp PCP - General Internal Medicine 04/24/23 documented as of this encounter
--- OUTSIDE RECORDS SUMMARY | 2024-06-28 07:58 | XMS_ITS | Encounter Summary ---
Author Organization [facility] Address [address] [place] [address] Care Team Providers Care Pig Iron Loader Name Role Phone Elsewhere, Pcp Primary Care Provider Unavailabl e Encounter Details Date Type Department Care Team (Latest Contact Info) Description 06/12/2024 Results Follow-Up Department of Cardiovascular Medicine in [place], [place] [address] [place] [phone] Chuck Townsend M.D., Ph.D. [address] [place] [phone] Cardiac Catheterization Social History Tobacco Use Types Packs/Day Years Used Date Smoking Tobacco: Former Cigarettes 1 49.1 0 03/14/1974 - 04/24/2023 Smokeless Tobacco: Never Alcohol Use Standard Drinks/Week Comments Yes 0 (1 standard drink = 0.6 oz pur e alcohol) Very very rarely [facility] Utilities Answer Date Recorded In the [...] Never 07/20/2019 How often do you attend catholic or sikh serv ices? Never 07/20/2019 Active Member of [...] Answer Date Recorded PHQ-2 Score 2 04/29/2019 [facility] Occupational Stress Questionnaire Answer [...] have a [facility] place to live 05/23/2024 Education Answer Date Recorded What is the highest level of school you have completed or the highest degree you have received? Associate degree: academic program 02/12/2019 Comments No Sex and Gender Information Value Date Recorded Sex Assigned at Female 05/07/2023 12:13 PM COMMUNITY WORKER Legal Sex Female 3:09 AM COMMUNITY WORKER Gender Identity Female 07/20/2019 7:51 PM CDT Sexual Orientation Straight 07/20/2019 7: 51 PM CDT documented as of this encounter Plan of Treatment Upcoming Encounters Date Type Department Care Team (Late st Contact Info) Description 06/28/2024 3:00 PM CDT Virtual Visit Division of Pulmonary Medicine in [place], [place] [address] [place] [phone] Anum Jacobson, AMEENA, C.N.P., D.N.P. [address] [place] [phone] 07/03/2024 2:00 PM CDT [facility] in [place], [place] [address] [place] [phone] Baylee Pike M.D. [address] [place] [phone] documented as of this encounter Visit Diagnoses Not on filedocumented in this encounter Additional Health Concerns Assessment Noted Time PHQ-9 Depression Total Score: 6 04/29/19 20 12:40 PM COMMUNITY WORKER documented as of this encounter Care Teams Pig Iron Loader Relationship Specialty Start Date End Date Elsewhere, Pcp PCP - General Internal Medicine 04/24/23 documented as of this encounter
--- OUTSIDE RECORDS SUMMARY | 2024-06-28 07:58 | XMS_ITS | Encounter Summary ---
Author Organization [facility] Address [address] [place] [address] Care Team Providers Care Technical Marketing Consultant Name Role Phone Elsewhere, Pcp Primary Care Provider Unavailabl e Encounter Details Date Type Department Care Team (Late st Contact Info) Description 05/31/2024 Results Follow-Up Department of Vascular Medicine in [place], [place] [address] [place] [phone] Chuck Townsend M.D., Ph.D. [address] [place] [phone] ECG 12 Lead Social History Tobacco Use Types Packs/Day Years Used Date Smoking Tobacco: Former Cigarettes 1 49.1 0 03/14/1974 - 04/24/2023 Smokeless Tobacco: Never Alcohol Use Standard Drinks/Week Comments Yes 0 (1 standard drink = 0.6 oz pur e alcohol) Very very rarely [facility] Utilities Answer Date Recorded In [...] Never 07/20/2019 How often do you attend jainism or mormon serv ices? Never 07/20/2019 Active Member of [...] Answer Date Recorded PHQ-2 Score 2 04/29/2019 [facility] of Occupat ional Health - Occupational [...] your living situation today? I have a [facility] place to live 05/23/2024 Education Answer Date Recorded What is the highest level of school you have completed or the highest degree you have received? Associate degree: academic program 02/12/2019 Comments No Sex and Gender Information Value Date Recorded Sex Assigned at Female 05/07/2023 12:13 PM READY TO WEAR DEPARTMENT MANAGER Legal Sex Female 3:09 AM READY TO WEAR DEPARTMENT MANAGER Gender Identity Female 07/20/2019 7:51 PM CDT Sexual Orientation Straight 07/20/2019 7: 51 PM CDT documented as of this encounter Plan of Treatment Upcoming Encounters Date Type Department Care Team (Late st Contact Info) Description 06/28/2024 3:00 PM CDT Virtual Visit Division of Pulmonary Medicine in [place], [place] [address] [place] [phone] Anum Jacobson, AMEENA, C.N.P., D.N.P. [address] [place] [phone] 07/03/2024 2:00 PM CDT [facility] in [place], [place] [address] [place] [phone] Baylee Pike M.D. [address] [place] [phone] documented as of this encounter Visit Diagnoses Not on filedocumented in this encounter Additional Health Concerns Assessment Noted Time PHQ-9 Depression Total Score: 6 04/29/19 20 12:40 PM READY TO WEAR DEPARTMENT MANAGER documented as of this encounter Care Teams Technical Marketing Consultant Relationship Specialty Start Date End Date Elsewhere, Pcp PCP - General Internal Medicine 04/24/23 documented as of this encounter
--- OUTSIDE RECORDS SUMMARY | 2024-06-28 07:58 | XMS_ITS | Encounter Summary ---
Author Organization [facility] Address [address] [place] [address] Care Team Providers Care Soil Technician Name Role Phone Elsewhere, Pcp Primary Care Provider Unavailabl e Encounter Details Date Type Department Care Team (Late st Contact Info) Description 06/13/2024 Results Follow-Up [facility] [address] [place] [phone] Anum Carroll, R.N. [place] Upper Extremity Arteries Right Social History Tobacco Use Types Packs/Day Years Used Date Smoking Tobacco: Former Cigarettes 1 49.1 0 03/14/1974 - 04/24/2023 Smokeless Tobacco: Never Alcohol Use Standard Drinks/Week Comments Yes 0 (1 standard drink = 0.6 oz pur e alcohol) Very very rarely [facility] Utilities Answer Date Recorded In the past 12 months has [employer], gas, oil, or water [employer] threatened to shut off services in your [...] How often do you attend evangelical or congregation serv ices? Never 07/20/2019 Active [...] Answer Date Recorded PHQ-2 Score 2 04/29/2019 [facility] [place] of Occupat ional Health - Occupational Stress [...] your living situation today? I have a [facility] place to live 05/23/2024 Education Answer Date Recorded What is the highest level of school you have completed or the highest degree you have received? Associate degree: academic program 02/12/2019 Comments No Sex and Gender Information Value Date Recorded Sex Assigned at Female 05/07/2023 12:13 PM MONOGRAM TECHNICIAN Legal Sex Female 3:09 AM MONOGRAM TECHNICIAN Gender Identity Female 07/20/2019 7:51 PM CDT Sexual Orientation Straight 07/20/2019 7: 51 PM CDT documented as of this encounter Plan of Treatment Upcoming Encounters Date Type Department Care Team (Late st Contact Info) Description 06/28/2024 3:00 PM CDT Virtual Visit Division of Pulmonary Medicine in [place], [place] [address] [place] [phone] Anum Jacobson APRN, C.N.P., D.N.P. [address] [place] [phone] 07/03/2024 2:00 PM CDT [facility] in [place], [place] [address] [place] [phone] Baylee Pike M.D. [address] [place] [phone] documented as of this encounter Visit Diagnoses Not on filedocumented in this encounter Additional Health Concerns Assessment Noted Time PHQ-9 Depression Total Score: 6 04/29/19 12:40 PM MONOGRAM TECHNICIAN documented as of this encounter Care Teams Soil Technician Relationship Specialty Start Date End Date Elsewhere, Pcp PCP - General Internal Medicine 04/24/23 documented as of this encounter
--- OUTSIDE RECORDS SUMMARY | 2024-06-28 07:58 | XMS_ITS | Clinical Summary ---
Author Organization [facility] Address [address] [place] [address] Care Team Providers Care Electricians Top Helper Name Role Phone Elsewhere, Pcp Primary Care Provider Unavailabl e Source Comments Patient records contain information from all sites at [facility]. For routine questions regarding patient records, call [phone] during business hours, M-F 8:00 AM - 5:00 PM Central Time. Record requests for emergency care only can be directed to [phone] at any time.[facility] Allergies Active Allergy Reactions Criticality Noted [...] total) by mouth daily. 360 tablet 0 Active acetaminophen (TYLENOL) 500 mg tablet Take 1,000 mg by mouth as needed for pain. Active ibuprofen (ADVIL,MOTRIN) 200 mg tablet Take 400 mg by mouth as needed for pain. Active atorvastatin (LIPITOR) 80 mg tabletIndicatio ns:Stroke (HCC) Take 1 tablet (80 mg total) by mouth at bedtime. 90 tablet 3 4 Active nitroglycerin (NITROSTAT) 0.[address] 1 tablet (0.4 mg total) under the tongue every 5 (five) minutes as needed for chest pain. 30 tablet 4 Active albuterol 90 mcg/actuation inhalerIndicati ons:Shortness Of Breath,Chronic Obstructive Pulmonary Disease (HCC) Inhale 2 puffs every 4 (four) hours as needed for wheezing or shortness of breath. 1 g 11 4 Active ipratropium-alb uteroL (DuoNeb) 0.5-2.5 mg/3 mL nebulizer solutionIndicat ions:Chronic Obstructive Pulmonary Disease (HCC) Inhale 3 mL by nebulization 4 (four) times a day as needed for wheezing or shortness of breath. 90 mL 11 4 Active valsartan (Diovan) 160 mg tablet Take 1 tablet by mouth daily. 4 Active benzonatate (Tessalon Perles) 100 mg capsule Take 100 mg by mouth every 4 (four) hours as needed. 2 Active DME CPAPIndications :Obstructive Sleep Apnea Adult DME Order 1 each 4 Active fluticasone furoate-vilante roL (Breo Ellipta) 100-25 mcg/actuation inhalerIndicati ons:Chronic Obstructive Pulmonary Disease (HCC) Inhale 1 puff daily. 180 each 3 4 Active Spiriva Respimat 2.5 mcg/actuation inhalerIndicati ons:Chronic Obstructive Pulmonary Disease (HCC) INHALE 2 PUFFS BY MOUTH ONCE DAILY 4 g 11 5 Active aspirin 81 mg chewable tablet Chew 4 tablets (324 mg total) once for 1 dose. Take morning of procedure. 5 Active clopidogreL (Plavix) 75 mg tablet Take 300 mg (4 tablets) the day before the procedure and 75 mg (1 tablet) the morning of the procedure. 5 tablet 5 Active amoxicillin-pot clavulanate (Augmentin) 875-125 mg per tabletIndicatio ns:Pain Postoperative,U nspecified Injury Radial Artery Forearm Level Right Initial Take 1 tablet by mouth 2 (two) times a day for 7 days. 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 Unspecified Injury Radial Artery Forearm Level Right Initial (Primary Dx); Pain Postoperative Discharge Disposition: Home or Self Care 06/12/2024 Clinical Communication Department of Cardiovascular Medicine in [place], [place] [address] [place] [phone] Sarah Milligan cardiac rehabilitation discussion 06/12/2024 Orders Only Department of Cardiovascular Medicine in [place], [place] [address] [place] [address] Chuck Townsend M.D., Ph.D. 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 Angina Pectoris (Stable Angina/Angina Of Exertion) (Primary Dx); Dyspnea On Exertion 06/12/2024 Results Follow-Up Department of Cardiovascular Medicine in [place], [place] [address] [place] [address] Chuck Townsend M.D., Ph.D. Cardiac Catheterization 06/04/2024 12:50 PM CDT - 06/04/2024 3:20 PM CDT Surgery Division of Cardiovascular Diseases in [place], [place] [address] [place] [phone] Ignacio Vail M.D., Ph.D. Coronary Angiography 06/04/2024 10:52 AM CDT - 06/04/2024 4:53 PM CDT Hospital Encounter Division of Cardiovascular Diseases in [address] [phone] Fuentes Stuart M.D. 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 Chronic Obstructive Pulmonary Disease (HCC) (Primary Dx); Smoking Tobacco Use Personal History; Obstructive Sleep Apnea Adult; Body Mass Index 40.0 To 44.9 Adult (HCC); Edema 06/03/2024 11:00 AM CDT Virtual Visit Department of Cardiovascular Medicine in [place], [place] [address] [place] [phone] Chuck Townsend M.D., Ph.D. Phoebe Hawley, RTejas 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 Angina Pectoris (Stable Angina/Angina Of Exertion) (Primary Dx); Hypertension Essential Primary; Edema Pitting; Dyspnea On Exertion 05/31/2024 Results Follow-Up Department of Vascular Medicine in [place], [place] [address] [place] [phone] Chuck Townsend M.D., Ph.D. Basic Metabolic Panel, NT-Pro B-Type Natriuretic Peptide (BNP) 05/31/2024 Results Follow-Up Department of Vascular Medicine in [place], [place] [address] [place] [address] Chuck Townsend M.D., Ph.D. ECG 12 Lead 05/29/2024 12:42 PM CDT - 05/29/2024 11:59 PM CDT Hospital Encounter Department of Radiology, [facility] in [place], [place] [address] [place] [phone] Chuck Townsend M.D., Ph.D. 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 Angina Pectoris (Stable Angina/Angina Of Exertion); Hypertension Essential Primary; Edema Pitting; Dyspnea On Exertion Discharge Disposition: Home or Self Care 05/29/2024 12:11 PM CDT - 05/29/2024 12:41 PM CDT Hospital Encounter Department of Laboratory Medicine and Pathology, [facility] in [place], [place] [address] [place] [phone] Chuck Townsend M.D., Ph.D. 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 Angina Pectoris (Stable Angina/Angina Of Exertion); Hypertension Essential Primary; Edema Pitting; Dyspnea On Exertion Discharge Disposition: Home or Self Care 05/29/2024 11:15 AM CDT Office Visit Department of Cardiovascular Medicine in [place], [place] [address] [place] [address] Chuck Townsend M.D., Ph.D. 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 Angina Pectoris (Stable Angina/Angina Of Exertion) (Primary Dx); Hypertension Essential Primary; Edema Pitting; Dyspnea On Exertion from Last 3 Months Immunizations Immunization Administration Dates Next Due H1N1 All Forms 12/31/2008 Influenza, Unspecified 12/09/2009 Family History Medical History Relation Name Comments Dementia Brother Mckinley Carrillo Early onset Al zheimer s Alcohol abuse Father Francisco Carrillo Jr Suicide Attempts Father Francisco Carrillo Jr Coronary artery disease Maternal Grandfather Gallo Go dwin Hyperlipidemia Maternal Grandfather Gallo Banks Skin cancer Maternal Grandfather Gallo Darren Arthritis Mother Tiffanie Bravo Dementia Mother Tiffanie Cordon Diabetes Mother Tiffanie Cordon Hyperlipidemia Mother Tiffanie Cordon Alcohol abuse Paternal Grandfather Francisco alvarado Sr Alcohol abuse Paternal Grandmother Marge Carrillo ADD Son 1 Tyrell Allison Drug abuse Son 1 Tyrell Allison Psychiatric Son 1 Tyrell Allison ADD Son 2 Raymundo Allison Relation Name Status Comments Brother Mckinley Carrillo Father Francisco Carrillo Jr Maternal Grandfather Gallo Banks Mother Tiffanie Cordon Paternal Grandfather Francisco alvarado Sr Paternal Grandmother Marge Carrillo Son 1 Tyrell Allison Son 2 Raymundo Allison Social History Tobacco Use Types Packs/Day Years Used Date Smoking Tobacco: Former Cigarettes 1 49.1 0 03/14/1974 - 04/24/2023 Smokeless Tobacco: Never Tobacco Cessation:Counseling Given: Not Answered Alcohol Use Standard Drinks/Week Comments Yes 0 (1 standard drink = 0.6 oz pur e alcohol) Very very rarely [facility] [employer] Answer Date Recorded In the past 12 months has e [facility], gas, oil, or water [employer] threatened to shut off services in your [...] Never 07/20/2019 How often do you attend episcopal or shinto serv ices? Never 07/20/2019 Active Member of [...] Answer Date Recorded PHQ-2 Score 2 04/29/2019 [facility] - [...] Sex Assigned at Female 05/07/2023 12:13 PM SENIOR CENTER DIRECTOR Legal Sex Female 3:09 AM SENIOR CENTER DIRECTOR Gender Identity Female 07/20/2019 7:51 PM CDT [...] 10.6 oz) 06/12/2024 10:01 PM CDT Height 156.5 cm (5' 1.61) 06/04/2024 11:44 AM C DT Body Mass Index 41.24 06/04/2024 11:44 AM CDT Plan of Treatment Upcoming Encounters Date Type Department Care Team (Late st Contact Info) Description 06/28/2024 3:00 PM CDT Virtual Visit Division of Pulmonary Medicine in [place], [place] [address] [place] [phone] Anum Jacobson, AMEEAN, C.N.P., D.N.P. [address] [place] [phone] 07/03/2024 2:00 PM CDT Telemedicine Center for [facility] Medicine in [place], [place] [address] [place] [phone] Baylee Pike M.D. [address] [place] [phone] Health Maintenance Due Date Last Done Comments CT Colonography 1960 Cologuard 1960 Colonoscopy 1960 Colorectal Cancer Surveillance 1960 HIV Screening 1960 Hepatitis C Screening 1960 Mammogram 1960 Cervical/Vaginal Cancer Screening 06/21/2019 06/20/2016 Zoster Vaccines (2 of 2) 03/31/2020 02/04/2020 RSV vaccine - (32-36 weeks) or 60+ years (1 - Risk 60-74 years 1-dose series) 2020 COVID-19 Vaccine ( season) 2023 04/27/2021, 03/24/2020, 02/26/2020 Depression Screening (Annual PHQ-2) 03/06/2024 Lung Cancer Screening 05/21/2024 05/22/2023 Office Visit for Blood Pressure Check / Re-check 05/29/2025 05/29/2024 Creatinine Level (Kidney Function Test) 06/13/2025 06/13/2024, 05/29/2024, 04/26/2023, Additional history exists Potassium Level 06/13/2025 06/13/2024, 03/2 08/2024, 04/26/2023, Additional history exists Sodium Level 06/13/2025 06/13/2024, 03/2 08/2024, 04/26/2023, Additional history exists Fasting Glucose for Diabetes Screening 06/14/2027 06/13/2024, 05/29/2024, 04/26/2023, Additional history exists Lipid (Cholesterol) Screening 07/04/2028 07/05/2023, 04/25/2023, 02/12/2019, Additional history exists DTaP,Tdap,and Td Vaccines (3 - Td or Tdap) 02/03/2030 02/04/2020, 09/01/2009 Pneumococcal vaccine (50+ years) Completed 07/21/2022 Influenza Vaccine Completed 01/05/2024, , 01/07/2022, Additional history exists IPV Vaccines Aged Out No longer eligi ble based on patient's age to complete this topic Procedures Procedure Name Priority Date/Time Associated Diagnosis Comments PLASTIC AND RECON SURGERY IMAGE EXAM Routine 06/13/2024 3:35 AM CDT US UPPER EXTREMITY VEINS RIGHT RAD - Semiurgent (Fast; most ED patients; some inpatients) 06/13/2024 1:32 AM CDT US UPPER EXTREMITY ARTERIES RIGHT RAD - Semiurgent (Fast; most ED patients; some inpatients) 06/13/2024 1:32 AM CDT CREATINE KINASE (CK), S STAT 06/13/2024 12:53 AM CDT C-REACTIVE PROTEIN (CRP), S/P STAT 06/13/2024 12:53 AM CDT CBC WITH DIFFERENTIAL, B STAT 06/13/2024 12:53 AM CDT BASIC METABOLIC PANEL, S/P STAT 06/13/2024 12:53 AM CDT SEDIMENTATION RATE, B STAT 06/13/2024 12:53 AM CDT CARDIAC CATHETERIZATION Routine 06/04/2024 2:23 PM CDT 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 Angina Pectoris (Stable Angina/Angina Of Exertion) Hypertension Essential Primary Edema Pitting Dyspnea On Exertion CARDIAC CATHETERIZATION Routine 06/04/2024 2:23 PM CDT 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 Angina Pectoris (Stable Angina/Angina Of Exertion) Hypertension Essential Primary Edema Pitting Dyspnea On Exertion CBC WITHOUT DIFFERENTIAL, B STAT 06/04/2024 12:27 PM CDT ECG Routine 05/29/2024 1:58 PM CDT 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 Angina Pectoris (Stable Angina/Angina Of Exertion) Hypertension Essential Primary Edema Pitting Dyspnea On Exertion DX CHEST AP OR PA AND LATERAL 2 VIEWS RAD - Routine (most inpatients and all outpatients) 05/29/2024 1:01 PM CDT 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 Angina Pectoris (Stable Angina/Angina Of Exertion) Hypertension Essential Primary Edema Pitting Dyspnea On Exertion NT-PRO B-TYPE NATRIURETIC PEPTIDE (BNP), S Routine 05/29/2024 12:28 PM CDT 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 Angina Pectoris (Stable Angina/Angina Of Exertion) Hypertension Essential Primary Edema Pitting Dyspnea On Exertion BASIC METABOLIC PANEL, S/P Routine 05/29/2024 12:28 PM CDT 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 Angina Pectoris (Stable Angina/Angina Of Exertion) Hypertension Essential Primary Edema Pitting Dyspnea On Exertion LIPID PANEL, S Routine 07/05/2023 9:54 AM CDT Abdominal Aortic Aneurysm Without Rupture Unspecified (HCC) CT CHEST WITHOUT IV CONTRAST RAD - Routine (most inpatients and all outpatients) 05/22/2023 3:02 PM CDT Shortness Of Breath from Last 3 Months or Most Recently Relevant to Health Maintenance Results * Hand-Plastic And Recon Surgery Image [...] IMAGING PROCE DURES Final Result IIMS NA * US Upper Extremity Veins Right (06/13/2024 [...] and management can be found on the [employer] site. Link [email or web address] Procedure Note Maksim Montoya M.D. - 06/13/2024 EXAM: US UPPER EXTREMITY VEINS RIGHT Exam performed with color and spectral Doppler analysis. COMPARISON: None. FINDINGS: RIGHT: Internal Jugular Vein: Negative. Innominate Vein: Negative. Subclavian Vein: Negative. Axillary Vein: Negative. Brachial Veins: Negative. Cephalic Vein: Negative. Basilic Vein: Negative. Information on venous thrombosis and management can be found on the[employer] site. [email or web address] IMPRESSION: Negative for acute DVT in the right upper extremity. Leonardo Jones M.D. IMG US PROCEDURES F inal Result * US [...] IMG US PROCEDURES Fin al Result * (ABNORMAL) Sedimentation Rate (06/13/2024 12:53 AM CDT) Sedimentation Rate, B 24(H) 2 - 22 mm/h 06/13/2024 2:23 AM CDT DTL Blood (Blood, Venous) 06/13/2024 12:53 AM CDT 06/13/2024 1:29 AM CDT Leonardo Jones M.D. LAB BLOOD ADD-ON Fi nal Result [facility] [address] [place] [address], [place] DTL [facility] [address] [place] [address] * (ABNORMAL) CBC with Differential, Blood (06/13/2024 12:53 AM CDT) Hemoglobin 11.4(L) 11.6 - 15.0 g/dL 06/13/2024 [...] 12:53 AM CDT 06/13/2024 12:57 AM CDT Leonardo Jones M.D. LAB BLOOD ADD-ON Fi nal Result [facility] [place] [address] [facility] [address] [place] [address] * (ABNORMAL) CRP (C-Reactive Protein) (06/13/2024 12:53 AM CDT) C-Reactive Protein (CRP), S 5.3(H) <5.0 mg/L 06/13/2024 2:09 AM CDT DTL Blood (Blood, Venous) 06/13/2024 12:53 AM CDT 06/13/2024 1:45 AM CDT Leonardo Jones M.D. LAB BLOOD ADD-ON Fi nal Result Performing Organization Address City/[facility]/ZIP Co de Phone Number [facility] [place] [address] [place] [address] * CK (Creatine Kinase) (06/13/2024 12:53 AM CDT) Creatine Kinase (CK), S 89 26 - 192 U/L 06/13/2024 2:09 AM CDT DTL Blood (Blood, Venous) 06/13/2024 12:53 AM CDT 06/13/2024 1:45 AM CDT Leonardo Jones M.D. LAB BLOOD ADD-ON Fi nal Result [facility] [place] [address] [place] [address], [facility] [address] [place] [address] * Basic Metabolic Panel (06/13/2024 12:53 AM CDT) Only the most recent of2 resultswithin the time period is included. Potassium, P 4.1 3.6 - 5.2 mmol/L [...] 12:53 AM CDT 06/13/2024 1:17 AM CDT Leonardo Jones M.D. LAB BLOOD ADD-ON Fi nal Result [facility] [place] [address] [place] [address], [facility] [address] [place] [address] * RIGHT HEART CATHETERIZATION, CORONARY ANGIOGRAPHY (06/04/2024 2:23 PM CDT) Anatomical Region Laterality Modality X-Ray Angiograph y 06/04/2024 1:28 PM CDT Narrative 06/04/2024 4:23 PM CDT For the complete report, see the Order-Level Documents. PROCEDURE TYPES 1. HEART CATHETERIZATION - RIGHT 2. CORONARY ANGIOGRAPHY FINAL DIAGNOSIS 1. Mild pulmonary hypertension 2. Severe coronary artery atherosclerosis PRE-PROCEDURE DIAGNOSIS 1. 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 Angina Pectoris [...] atherosclerosis PRE-PROCEDURE DIAGNOSIS 1. 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Angina Pectoris (Stable [...] the complete report, see the Order-Level Documents. Chuck Townsend M.D., Ph.D. CV CARDIAC CATH [...] 12:27 PM CDT 06/04/2024 12:38 PM CDT Ignacio Vail M.D., Ph.D. LAB BLOOD ADD-ON F inal Result [facility] [place] [address] [place] [address], [facility] [address] [place] [address] * ECG 12 Lead (05/29/2024 1:58 PM CDT) Ventricular Rate ECG/Min 79 BPM MUSE MN Interval 150 ms MUSE QRSD Interval 86 ms MUSE QT Interval 376 ms MUSE QTC Interval 431 ms MUSE P Starke 60 degrees MUSE R Starke 71 degrees MUSE T Wave Starke 64 degrees MUSE 05/29/2024 1:58 PM CDT 05/29/2024 2:00 PM CDT Impressions MUSE - 05/29/2024 2:00 PM CDT Normal sinus rhythm Normal ECG When compared with ECG of 25-Apr-2023 09:57, Premature ventricular complexes are no longer present Reviewed by GAVIN Wing Narrative Procedure Note Darrius Verde M.D. - 05/29/2024 IMPRESSION: Normal sinus rhythm Normal ECG When compared with ECG of 25-Apr-2023 09:57, Premature ventricular complexes are no longer present Reviewed by GAVIN Wing Chuck Townsend M.D., Ph.D. ECG ORDERABLES Fin al Result MUSE NA * DX Chest AP or PA and Lateral 2 Views (05/29/2024 1:01 PM CDT) Anatomical Region Laterality Modality Chest, Thoracic RST LOS, Tho racic ARZ LOS, Thoracic FLA LOS N/A Digital Radiography Impressions 05/29/2024 1:04 PM CDT Shallow inspiration with new areas of linear atelectasis in the lower lungs since 04/24/2023. Prominent fat pad at the cardiac apex. Chest otherwise negative. Narrative 05/29/2024 1:04 PM CDT EXAM: DX CHEST AP OR PA AND LATERAL 2 VIEWS Procedure Note Deniz Calle M.D. - 05/29/2024 EXAM: DX CHEST AP OR PA AND LATERAL 2 VIEWS IMPRESSION: Shallow inspiration with new areas of linear atelectasis in the lowerlungs since 04/24/2023. Prominent fat pad at the cardiac apex. Chestotherwise negative. Chuck Townsend M.D., Ph.D. IMG DIAGNOSTIC IMAG ING PROCEDURES Final Result * NT-Pro B-Type Natriuretic Peptide (BNP) (05/29/2024 12:28 PM CDT) Pathologist [facility] NT-Pro BNP 62 <=226 pg/mL 05/29/2024 2:29 [...] Ph.D. LAB BLOOD ADD-ON Fi nal Result [facility] [place] [address] [place] [address], [facility] [address] [place] [address] * Lipid Panel (07/05/2023 9:54 AM CDT) [facility] Triglycerides 68 mg/dL 07/05/2023 10:52 AM CDT [...] D.O. LAB BLOOD ADD-ON Final Re sult [facility] [place] [address] [place] [address], [facility] [address] [place] [address] * CT Chest without IV Contrast (05/22/2023 [...] Severe coronary artery calcification. Perla Lorenz M.D. IM CT PROCEDURES Final Re sult from Last 3 Months or Most Recently Relevant to Health Maintenance Insurance [facility] Advance Directives For more information, please contact: [phone] * Full Code (Latest Code Status on File) Date Activated Date Inactivated Comments 04/24/2023 5:03 AM 04/26/2023 3:35 PM Question Answer Comments Full Code: Discussed * Full Code Date Activated Date Inactivated Comments 01/04/2019 11:20 PM 01/05/2019 7:41 PM Question Answer Comments Full Code: Discussed Care Teams Electricians Top Helper Relationship Specialty Start Date End Date Elsewhere, Pcp PCP - General Internal Medicine 04/24/23
--- OUTSIDE RECORDS SUMMARY | 2024-06-28 07:58 | XMS_ITS | Encounter Summary ---
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 [address] [place] [address] Phone: tel: fax: Referral ID Status Reason Start Date Expiration Date Visits Re quested Visits Authorized [id number] 1 1 Encounter Details Date Type Department Care Team (Late st Contact Info) Description 06/04/2024 12:50 PM CDT - 06/04/2024 3:20 PM CDT Surgery Division of Cardiovascular Diseases in [place], [place] [address] [place] [address] Ignacio Vail M.D., Ph.D. [address] [place] [phone] Coronary Angiography Social History Tobacco Use Types Packs/Day Years Used Date Smoking Tobacco: Former Cigarettes 1 49.1 0 03/14/1974 - 04/24/2023 Smokeless Tobacco: Never Alcohol Use Standard Drinks/Week Comments Yes 0 (1 standard drink = 0.6 oz pur e alcohol) Very very rarely [facility] Utilities Answer Date Recorded In the past 12 months has th e electric, gas, oil, or water [employer] threatened to shut off services in your [...] Never 07/20/2019 How often do you attend shinto or roman catholic serv ices? Never 07/20/2019 Active Member [...] Recorded PHQ-2 Score 2 04/29/2019 [facility] of Occupat ional Health - Occupational Stress [...] your living situation today? I have a [facility] place to live 05/23/2024 Education Answer Date Recorded What is the highest level of school you have completed or the highest degree you have received? 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 Legal Sex Female 3:09 AM ENGRAVER [employer] Gender Identity Female 07/20/2019 7:51 PM CDT Sexual Orientation Straight 07/20/2019 7: 51 PM CDT documented as of this encounter Last Filed Vital Signs Vital Sign Reading Time Taken Comments Blood Pressure 135/62 06/04/2024 2:10 PM CDT Pulse 70 06/04/2024 2:10 PM CDT Temperature 36.6 C (97.9 F) 06/04/2024 11:55 AM CDT Respiratory Rate 0 06/04/2024 2:10 PM CDT Oxygen Saturation 88% 06/04/2024 2:10 PM CDT Inhaled Oxygen Concentration - - [...] Virtual Visit Division of Pulmonary Medicine in [place], [place] [address] [place] [phone] Anum Jacobson, AMEENA, C.N.P., D.N.P. [address] [place] [phone] 07/03/2024 2:00 PM CDT Telemedicine Center for [facility] in [place], [place] [address] [place] [phone] Baylee Pike M.D. [address] [place] [phone] documented as of this encounter Procedures Procedure Name Priority Date/Time Associated Diagnosis Comments CARDIAC CATHETERIZATION Routine 06/05/19 2:23 PM CDT Atherosclerotic Heart Disease Lummi Coronary Artery With Other Forms Angina Pectoris (Stable Angina/Angina Of Exertion) Hypertension Essential Primary Edema Pitting Dyspnea On Exertion CARDIAC CATHETERIZATION Routine 06/05/19 2:23 PM CDT Atherosclerotic Heart Disease Lummi Coronary Artery With Other Forms Angina Pectoris [...] atherosclerosis PRE-PROCEDURE DIAGNOSIS 1. Atherosclerotic Heart Disease Lummi Coronary Artery With Other Forms Angina Pectoris [...] atherosclerosis PRE-PROCEDURE DIAGNOSIS 1. Atherosclerotic Heart Disease Lummi Coronary Artery With Other FormsAngina Pectoris (Stable [...] Ph.D. LAB BLOOD ADD-ON F inal Result [facility] [address] [place] [address], [place] [facility] [address] [place] [address] documented in this encounter Visit Diagnoses Diagnosis Atherosclerotic Heart Disease Lummi Coronary Artery With Other Forms Angina Pectoris (Stable Angina/Angina Of Exertion) Hypertension Essential Primary Edema Pitting Dyspnea On Exertion documented in this encounter Admitting Diagnoses Diagnosis Atherosclerotic Heart Disease Lummi Coronary Artery With Other Forms Angina Pectoris [...] 8 breaths/minute. heparin (porcine) 1,000 unit/mL injection Code/trauma/sedation medication, Starting on Mon06/04/24 at 1342, Intraprocedure (CV) Given 06/04/2024 1:42 PM CDT 5,000 Units iohexoL 350 mg iodine/mL solution (Omnipaque) Code/trauma/sedation medication, Starting on Mon06/04/24 at 1412, Intraprocedure (CV) Given 06/04/2024 2:12 PM CDT 60 mL lidocaine 10 mg/mL (1 %) injection (Xylocaine) Code/trauma/sedation medication, Starting on Mon06/04/24 at 1330, Intraprocedure (CV) Given 06/04/2024 1:30 PM CDT 2 mL Right Wrist lidocaine 10 mg/mL (1 %) injection (Xylocaine) Code/trauma/sedation medication, Starting on Mon06/04/24 at 1356, Intraprocedure (CV) Given 06/04/2024 1:56 PM CDT 5 mL Right Neck midazolam (PF) injection 0.25 mg (Versed) 0.25 [...] than 8 breaths/minute. nitroglycerin SL tablet (Nitrostat) Code/trauma/sedation medication, Starting on Mon06/04/24 at 1340, Intraprocedure (CV) Given 06/04/2024 2:18 PM CDT 0.4 mg Given 06/04/2024 1:40 PM CDT 0.4 mg ondansetron (PF) injection 4 mg (Zofran) 4 [...] 1638 (Given - Provid er: Sabine Alvarado RJustinNJustin) sodium chloride 0.9 % injection 3 mL [...] Subsequent doses 1300 (Given - Provid er: Flora Simmons., R.N., CCRN)1323 (Given - Provider: Flora Simmons., R.N., CCRN)1342 (Given - Provider: Flora Simmons., R.N., CCRN)1414 (Given - Provider: Rizwan SimmonsS.N., R.N., CCRN) fentaNYL injection 25 mcg (Sublimaze) 25 [...] 1342 (Given - Provid er: Andres Simmons, R.N., CCRN) iohexoL 350 mg iodine/mL solution (Omnipaque) [...] (CANCELED) Code/trauma/sedation medication, Starting on Mon06/04/24 at 1356, Intraprocedure (CV) 1356 (Given - [...] option 1549 (Given - Provid er: Sabine Alvarado, R.N.) sodium chloride 0.9 % injection 10 [...] Total Score: 6 04/29/19 20 12:40 PM ENGRAVER [employer] documented as of this encounter Care Teams Work Station Support Specialist Relationship Specialty Start Date End Date Elsewhere, Pcp PCP - General Internal Medicine 04/24/23 documented as of this encounter
--- OUTSIDE RECORDS SUMMARY | 2024-06-28 07:59 | XMS_ITS | Encounter Summary ---
Author Organization [facility] Address [address] [place] [address] Care Team Providers Care Ball Holder Name Role Phone Elsewhere, Pcp Primary Care Provider Unavailabl e Encounter Details Date Type Department Care Team (Late st Contact Info) Description 05/31/2024 Results Follow-Up Department of Vascular Medicine in [place], [place] [address] [place] [address] Chuck Townsend M.D., Ph.D. [address] [place] [phone] Basic Metabolic Panel, NT-Pro B-Type Natriuretic Peptide (BNP) Social History Tobacco Use Types Packs/Day Years Used Date Smoking Tobacco: Former Cigarettes 1 49.1 0 03/14/1974 - 04/24/2023 Smokeless Tobacco: Never Alcohol Use Standard Drinks/Week Comments Yes 0 (1 standard drink = 0.6 oz pur e alcohol) Very very rarely [facility] Utilities Answer Date Recorded In the [...] Never 07/20/2019 How often do you attend baptism or adventism serv ices? Never 07/20/2019 Active [...] Answer Date Recorded PHQ-2 Score 2 04/29/2019 [facility] of Occupat ional Health - Occupational [...] your living situation today? I have a [facility] place to live 05/23/2024 Education Answer Date Recorded What is the highest level of school you have completed or the highest degree you have received? 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 [address] [place] [phone] 07/03/2024 2:00 PM CDT Telemedicine [facility] in [place], [place] [address] [place] [phone] Baylee Pike M.D. [address] [place] [phone] documented as of this encounter Visit Diagnoses Not on filedocumented in this encounter Additional Health Concerns Assessment Noted Time PHQ-9 Depression Total Score: 6 04/29/19 20 12:40 PM LEARNING DESIGNER documented as of this encounter Care Teams Ball Holder Relationship Specialty Start Date End Date Elsewhere, Pcp PCP - General Internal Medicine 04/24/23 documented as of this encounter
--- OUTSIDE RECORDS SUMMARY | 2024-06-28 07:59 | XMS_ITS | Encounter Summary ---
Author Organization [facility] Address [address] [place] [address] Care Team Providers Care Director Of Spa And Guest Experience Name Role Phone Elsewhere, Pcp Primary Care Provider Unavailabl e Reason for Referral * Outpatient (Routine) - Closed Specialty Diagnoses / Procedures Referred By Carey escobar Referred To Contact Diagnoses Atherosclerotic Heart Disease Unga Coronary Artery With Other Forms Angina Pectoris (Stable Angina/Angina Of Exertion) Hypertension Essential Primary Edema Pitting Dyspnea On Exertion Procedures DX Chest AP or PA and Lateral 2 Views Chuck Townsend [place] [address] Phone: tel: fax: [facility] Referral ID Status Reason Start Date Expiration Date Visits Re quested Visits Authorized [id number] Closed 05/29/2024 08/29/2025 1 1 Reason for Visit * Outpatient (Routine) - Closed Specialty Diagnoses / Procedures Referred By Carey escobar Referred To Contact Diagnoses Atherosclerotic Heart Disease Unga Coronary Artery With Other Forms Angina Pectoris (Stable Angina/Angina Of Exertion) Hypertension Essential Primary Edema Pitting Dyspnea On Exertion Procedures DX Chest AP or PA and Lateral 2 Views Chuck Townsend M.D., Ph.D. [address] [place] [phone] Phone: tel: fax: [facility] Referral ID Status Reason Start Date Expiration Date Visits Re quested Visits Authorized [id number] Closed 05/29/2024 08/29/2025 1 1 Encounter Details Date Type Department Care Team (Latest Contact Info) Description 05/29/2024 12:42 PM CDT - 05/29/2024 11:59 PM CDT Hospital Encounter Department of Radiology, [facility] in [place], [place] [address] [place] [address] Chuck Townsend M.D., Ph.D. [address] [place] [address] Atherosclerotic Heart Disease Unga Coronary Artery With Other Forms Angina Pectoris [...] oz pur e alcohol) Very very rarely [facility] Utilities Answer Date Recorded In the past 12 months has e [employer], gas, oil, or water [employer] threatened to shut off services in your [...] How often do you attend temple or taoist serv ices? Never 07/20/2019 Active Member of [...] 2 04/29/2019 [facility] - Occupational Stress Questionnaire Answer Date Recorded [...] Sex Assigned at Female 05/07/2023 12:13 PM SET UP PERSON Legal Sex Female 3:09 AM SET UP PERSON Gender Identity Female 07/20/2019 7:51 PM CDT [...] Virtual Visit Division of Pulmonary Medicine in [place], [place] [address] [place] [phone] Anum Jacobson, AMEENA, C.N.P., D.N.P. [address] [place] [phone] 07/03/2024 2:00 PM CDT Tele[facility]icine [facility] in [place], [place] [address] [place] [phone] Baylee Pike M.D. [address] [place] [phone] documented as of this encounter Procedures Procedure Name Priority Date/Time Associated Diagnosis Comments DX CHEST AP OR PA AND LATERAL 2 VIEWS RAD - Routine (most inpatients and all outpatients) 05/29/2024 1:01 PM CDT Atherosclerotic Heart Disease Unga Coronary Artery With Other Forms Angina Pectoris (Stable Angina/Angina Of Exertion) Hypertension Essential Primary Edema Pitting Dyspnea On Exertion documented in this encounter Results * DX Chest AP or PA and [...] IMG DIAGNOSTIC IMAG ING PROCEDURES Final Result documented in this encounter Visit Diagnoses Diagnosis Atherosclerotic Heart Disease Unga Coronary Artery With Other Forms Angina Pectoris (Stable Angina/Angina Of Exertion) Hypertension Essential Primary Edema Pitting Dyspnea On Exertion documented in this encounter Additional Health Concerns Assessment Noted Time PHQ-9 Depression Total Score: 6 04/29/19 20 12:40 PM SET UP PERSON documented as of this encounter Care Teams Director Of Spa And Guest Experience Relationship Specialty Start Date End Date Elsewhere, Pcp PCP - General Internal Medicine 04/24/23 documented as of this encounter
--- OUTSIDE RECORDS SUMMARY | 2024-06-28 07:59 | XMS_ITS | Encounter Summary ---
Author Organization [facility] Address [address] [place] [address] Care Team Providers Care Organic Lab Worker Name Role Phone Elsewhere, Pcp Primary Care Provider Unavailabl e Reason for Referral * Specialty Diagnoses / Procedures Referred By Carey t Referred To Contact Diagnoses Atherosclerotic Heart Disease [place] Coronary Artery With Other Forms Angina Pectoris (Stable Angina/Angina Of Exertion) Hypertension Essential Primary Edema Pitting Dyspnea On Exertion Chuck Townsend M.D., Ph.D. [address] [place] [address] Phone: tel: fax: [facility] Referral ID Status Reason Start Date Expiration Date Visits Re quested Visits Authorized * Outpatient (Routine) - Closed Specialty Diagnoses / Procedures Referred By Carey escobar Referred To Contact Diagnoses Atherosclerotic Heart Disease [place] Coronary Artery With Other Forms Angina Pectoris (Stable Angina/Angina Of Exertion) Hypertension Essential Primary Edema Pitting Dyspnea On Exertion Procedures ECG 12 Lead Chuck Townsend M.D., Ph.D. [address] [place] [address] Phone: tel: fax: [facility] Referral ID Status Reason Start Date Expiration Date Visits Re quested Visits Authorized [id number] Closed 05/29/2024 08/29/2025 1 1 * Outpatient (Routine) - Closed Specialty Diagnoses / Procedures Referred By Contac t Referred To Contact Diagnoses Atherosclerotic Heart Disease [place] Coronary Artery With Other Forms Angina Pectoris (Stable Angina/Angina Of Exertion) Hypertension Essential Primary Edema Pitting Dyspnea On Exertion Procedures DX Chest AP or PA and Lateral 2 Views Chuck Townsend M.D., Ph.D. [address] [place] [phone] Phone: tel: fax: [facility] Referral ID Status Reason Start Date Expiration Date Visits Re quested Visits Authorized [id number] Closed 05/29/2024 08/29/2025 1 1 Reason for Visit * Outpatient (Routine) - Closed Specialty Diagnoses / Procedures Referred By Contac t Referred To Contact Cardiovascular Disease Chuck Townsend M.D., Ph.D. [address] [place] [phone] Phone: tel: fax: [facility] Referral ID Status Reason Start Date Expiration Date Visits Re quested Visits Authorized [id number] Closed 05/07/2024 11/06/2025 1 1 Encounter Details Date Type Department Care Team (Latest Contact Info) Description 05/29/2024 11:15 AM CDT Office Visit Department of Cardiovascular Medicine in [place], [place] [address] [place] [phone] Chuck Townsend M.D., Ph.D. [address] [place] [phone] Atherosclerotic Heart Disease [place] Coronary Artery With Other Forms Angina Pectoris (Stable Angina/Angina Of Exertion) (Primary Dx); Hypertension Essential Primary; Edema Pitting; Dyspnea On Exertion Social History Tobacco Use Types Packs/Day Years Used Date Smoking Tobacco: Former Cigarettes 1 49.1 0 03/14/1974 - 04/24/2023 Smokeless Tobacco: Never Alcohol Use Standard Drinks/Week Comments Yes 0 (1 standard drink = 0.6 oz pur e alcohol) Very very rarely [facility] Utilities Answer Date Recorded [...] Never 07/20/2019 How often do you attend confucianist or orthodox serv ices? Never 07/20/2019 Active [...] Answer Date Recorded PHQ-2 Score 2 04/29/2019 [facility] Occupat ional Health - Occupational [...] have a [facility] to live 05/23/2024 Education Answer Date Recorded What is the highest level of school you have completed or the highest degree you have received? Associate degree: academic program 02/12/2019 Comments No Sex and Gender Information Value Date Recorded Sex Assigned at Female 05/07/2023 12:13 PM [employer] Legal Sex Female 3:09 AM [employer] Gender Identity Female 07/20/2019 7:51 PM CDT Sexual Orientation Straight 07/20/2019 7: 51 PM CDT documented as of this encounter Last Filed Vital Signs Vital Sign Reading Time Taken Comments Blood Pressure 119/70 05/29/2024 11:11 AM CDT 3 BP averaged Pulse 92 05/29/2024 11:11 AM CDT Temperature - - Respiratory Rate - - Oxygen Saturation - - Inhaled Oxygen Concentration - - Weight 100 kg (221 lb 5.5 oz) 11:11 AM CDT Height 156.5 cm (5' 1.61) 05/29/2024 1 1:11 AM CDT Body Mass Index 40.99 05/29/2024 11:11 AM CDT documented in this encounter Progress Notes * Chuck Townsend M.D., Ph.D. - 05/29/2024 11:15 AM CDT CARDIOLOGY CLINIC NOTE UPDATE: Chest x-ray completed and notes shallow inspiration with new linear atelectasis bilaterally. On my review, I do also think it shows significant cephalization of pulmonary vasculature suggesting pulmonary hypertension but no obvious pattern of interstitial edema. Cardiac silhouette is normalsize but I do think the pulmonary trunk might be slightly enlarged as well, again concerning for elevated pulmonary pressures. HISTORY OF PRESENT ILLNESS Ms. Allison is a 63 y.o. female who presents to outpatient Cardiology Clinic today for evaluation and management of progressive exertional dyspnea and lower extremity edema. Relevant comorbid medical conditions include COPD, dense coronary calcifications on imaging, possible hypertension, and roughly 50 pack year smoking history with quit date in early 2023. She had COVID pneumonia in the fall (January 2024), and initially improved but then developed significant swelling of her legs (now from her hips down and in her hands) and severe shortness of breath. This has been progressive in the last month or two. She has had to stop wearing rings due to swelling in her hands. She does not have significant chest pain, although occasionally will have mild pain with activity. Shortly before she got COVID, she trialed a short course of Lasix with her PCP and this reportedly did nothing; she did not notice any change in her swelling or her urine amount/frequency. Workup prior to appointment today has been notable for a negative dobutamine echocardiogram stress test and significant coronary calcification on CT imaging. A full summary of pre-visit testing is available below. She did have an echo and blood work about a month ago; I cannot see most of these results but she reports they checked a BNP or NT pro-BNP and she remembers being told this was normal. That said, herswelling has significantly increased since then. Denies orthopnea. No changes to urination in terms of volume, frequency, or character of her urine. CARDIOVASCULAR HISTORY Chest pain concerning for angina Severe exertional dyspnea and edema, progressive since late 2023 Abnormal stress test in 2021; the report and images are not available to me but a note from that time does note A small area of mild reversibility in the mid and apical inferior wall with a normal ejection fraction; the note states that patient elected to pursue coronary CTA after this but I cannot see those results. OTHER PAST MEDICAL HISTORY COPD COVID pneumonia in January 2024 Tobacco use, roughly 50 pack year history, quit in early 2023 REVIEW OF SYSTEMS Otherwise negative except as per HPI. OUTPATIENT MEDICATIONS Current Outpatient Medications Medication Instructions acetaminophen (TYLENOL) 1,000 mg, oral, As needed albuterol 90 mcg/actuation inhaler 2 puffs, inhalation, Every 4 hours PRN aspirin, buffered, 325 mg tablet 325 mg, oral, Daily atorvastatin (LIPITOR) 80 mg, oral, Daily at bedtime benzonatate (TESSALON PERLES) 100 mg, oral, Every 4 hours PRN DME CPAP DME Order fluticasone furoate-vilanteroL (Breo Ellipta) 100-25 mcg/actuation inhaler 1 puff, inhalation, Daily ibuprofen 400 mg, oral, As needed ipratropium-albuteroL (DuoNeb) 0.5-2.5 mg/3 mL nebulizer solution 3 mL, nebulization, 4 times dailyPRN nitroglycerin (NITROSTAT) 0.4 mg, sublingual, Every 5 min PRN Spiriva Respimat 2.5 mcg/actuation inhaler 2 puffs, inhalation, Daily valsartan (Diovan) 160 mg tablet 1 tablet, oral, Daily SOCIAL HISTORY Roughly 50 pack-year smoking history, quit early 2023 ALLERGIES Allergies Allergen Reactions Penicillins Edema (Reselect Reaction) and Other (see comments) Penicillin injectables ONLY Sulfa (Sulfonamide Antibiotics) Hives (Reselect Reaction) and Hives only, no other systemic symptoms PHYSICAL EXAMINATION BP 119/70 (BP Location: Right arm, Patient Position: Sitting, Cuff Size: Regular) Comment: 3 BP averaged Pulse 92 Ht 156.5 cm Wt 100 kg BMI 40.99 kg/m?? Wt Readings from Last 1 Encounters: 05/29/24 100 kg Body mass index is 40.99 kg/m??. Gen: In no acute distress. HEENT: Pupils equal and round. No conjunctival injection or icterus. No corneal arcus or xanthelasma. Vision grossly intact. Good oral hygiene without visible lesions. Neck supple, non-tender withoutlymphadenopathy, no masses or thyromegaly. Heart: Regular rate, regular rhythm. No murmur. No rub or gallop. Nondisplaced apical impulse. No carotid bruits. JVP does appear markedly elevated, up to nearly the angle of the mandible with patient seated upright. Lungs: breathing on room air. Breath sounds symmetric with good air entry over all lung martinez. Faint bibasilar crackles. Abdomen: Soft and nontender. Extremities: 1+ pitting edema of bilateral lower extremities despite compression socks in place. Significant non-pitting edema as well.. Peripheral pulses symmetric and readily palpable. Extremities are warm and well perfused. No noted varicosities. Neurological: Alert and fully oriented. No obvious focal deficits. Skin: Skin normal color, texture and turgor with no lesions or eruptions. DIAGNOSTICS Transthoracic Echocardiogram (TTE) Last performed: 04/29/[address] [facility]; report available but not images Results include: LV: Normal size and systolic function without regional motion abnormalities, estimated LVEF 65%, report does not note diastolic dysfunction but E/e' ratio was calculated at roughly 9 RV: Normal size and systolic function, estimated RVSP not reported Atria:normal biatrial size Valves: No evidence of hemodynamically significant valvular disease Aorta: normal-appearing aorta Lab Results Component Value Date CHOL 146 07/05/2023 TRIG 68 07/05/2023 HDL 70 07/05/2023 LDLCALC 62 07/05/2023 ASSESSMENT / PLAN ASSESSMENT / PLAN Ms. Allison is a 63 y.o. female with a PMH of COPD, hypertension, and coronary artery disease without history of ischemic event who presented for follow-up of chest pain episode concerning for angina. #1 Atherosclerotic Heart Disease [place] Coronary Artery With Other Forms Angina Pectoris (Stable Angina/Angina Of Exertion) #2 Hypertension Essential Primary #3 Edema Pitting #4 Dyspnea On Exertion This is quite a concerning presentation, in a patient with known dense coronary calcifications and numerous other risk factors for cardiovascular disease presenting with progressive, and now quite limiting, dyspnea and edema. She appears fluid overloaded/congested on exam, with lower extremity edema and elevated JVP as well as faint bibasilar crackles. Her echo and lab work roughly one month ago reportedly did not show evidence of significant heart failure, although the TTE report I can see is limited in that it reports indeterminate diastolic function (E/e' ratio about 10) but was not able to estimate an RVSP and does not comment on IVC size/collapse. Ultimately, I think the differential here is primarily angina/coronary disease vs. HFpEF with acutevolume overload, although her lack of orthopnea is atypical for decompensated HF. Impaired renal function is also on the differential given apparent volume overload and apparent lack of response to lasix several months ago. I think we should do some basic testing today including blood work, ECG, and chest x ray to rule out severe acute pathology. Ultimately, I think our best way to get definitive answers is to proceed to the labor relations consultant. When I saw her a year ago with Dr. Phoenix, we felt that invasive angiography would be indicated with worseningsymptoms concerning for angina due to her dense coronary calcifications. She now has those symptoms, so I think angiography is the right next step. She does also have numerous risk factors for HFpEF and suggestive symptoms despite fairly unremarkable/indeterminate resting TTE last month. TTE, especially just at rest, is limited for its diagnosisof HFpEF, so I think a RHC with exercise is also indicated to assess for HFpEF. We have scheduled this study for next week. Because she does not have chest pain, I am less concerned about a very severe coronary lesion that would be a contraindication to exercise, but I will defer to the Animal Control Officer team in terms of the safety and/or optimal order for these tests. PLAN Testing today after visit to include 12-lead ECG, BMP, NT pro-BNP, and chest x ray photofinishing laboratory worker study ordered for next week Right heart cath with exercise Coronary angiography +/- intervention as indicated Patient was reviewed with curriculum consultant Dr. Ruben Stuart, who agrees with the assessment and plan as detailed above. I have listed him as the personal banking officer for the labor relations consultant, as I will be away next week. I spent a total of 35 minutes reviewing the patient's medical records and diagnostic tests, seeing the patient, speaking with the nursing team, placing the orders noted above, coordinating care, and/or documenting in the record. documented in this encounter Plan of Treatment Upcoming Encounters Date Type Department Care Team (Late st Contact Info) Description 06/28/2024 3:00 PM CDT Virtual Visit Division of Pulmonary Medicine in [place], [place] [address] [place] [phone] Anum Jacobson, AMEENA, C.N.P., D.N.P. [address] [place] [phone] 07/03/2024 2:00 PM CDT [facility] in [place], [place] [address] [place] [phone] Baylee Pike M.D. [address] [place] [phone] Scheduled Referrals Name Type Priority Associated Diagnoses Order Schedule Cardiovascular Disease - Education visit (clinic) Outpatient Referral Routine Atherosclerotic Heart Disease [place] Coronary Artery With Other Forms Angina Pectoris (Stable Angina/Angina Of Exertion) (HCC) Hypertension Essential Primary Edema Pitting Dyspnea On Exertion Expected: 05/29/2024, Expires: 08/29/2025 documented as of this encounter Results * ECG 12 Lead (05/29/2024 1:58 PM CDT) Ventricular Rate ECG/Min 79 BPM MUSE CA Interval 150 ms MUSE QRSD Interval 86 ms MUSE QT Interval 376 ms MUSE QTC Interval 431 ms MUSE P [place] 60 degrees MUSE R [place] 71 degrees MUSE T Wave [place] 64 degrees MUSE 05/29/2024 1:58 PM CDT [...] Ph.D. LAB BLOOD ADD-ON Fi nal Result [facility] [address] [place] [address], [facility] DTL [facility] [address] [place] [address] * Basic Metabolic Panel (05/29/2024 12:28 PM [...] CDT 05/29/2024 1:47 PM CDT us Chuck AstorgaD., Ph.D. LAB BLOOD ADD-ON Fi nal Result [facility] [address] [place] [address], [place] DTL [facility] [address] [place] [address] documented in this encounter Visit Diagnoses Diagnosis Atherosclerotic Heart Disease [place] Coronary Artery With Other Forms Angina Pectoris (Stable Angina/Angina Of Exertion)- Primary Hypertension Essential Primary Edema Pitting Dyspnea On Exertion Atherosclerotic Heart Disease [place] Coronary Artery With Other Forms Angina Pectoris (Stable Angina/Angina Of Exertion) Hypertension Essential Primary Edema Pitting Dyspnea On Exertion documented in this encounter Additional Health Concerns Assessment Noted Time PHQ-9 Depression Total Score: 6 04/29/19 20 12:40 PM [employer] documented as of this encounter Care Teams Organic Lab Worker Relationship Specialty Start Date End Date Elsewhere, Pcp PCP - General Internal Medicine 04/24/23 documented as of this encounter
--- OUTSIDE RECORDS SUMMARY | 2024-06-28 07:59 | XMS_ITS | Encounter Summary ---
Author Organization [facility] Address [address] [place] [address] Care Team Providers Care Channel Marketing Coordinator Name Role Phone Elsewhere, Pcp Primary Care Provider Unavailabl e Reason for Referral * Outpatient (Routine) - Authorized Specialty Diagnoses / Procedures Referred By Carey escobar Referred To Contact Pulmonary Medicine Diagnoses Chronic Obstructive Pulmonary Disease (HCC) Anum Jacobson APRN, C.N.P., D.N.P. [address] [place] [address] Phone: tel: fax: [facility] Referral ID Status Reason Start Date Expiration Date V isits Requested Visits Authorized [id number] Authorized 06/03/2024 12/03/2025 1 1 Reason for Visit * Outpatient (Routine) - Closed Specialty Diagnoses / Procedures Referred By Contmayela t Referred To Contact Pulmonary Medicine Diagnoses Chronic Obstructive Pulmonary Disease (HCC) Anum Jacobson APRN, C.N.P., D.N.P. [address] [place] [address] Phone: tel: fax: [facility] Referral ID Status Reason Start Date Expiration Date Visits Re quested Visits Authorized [id number] Closed 11/27/2023 05/28/2025 1 1 Encounter Details Date Type Department Care Team (Late st Contact Info) Description 06/03/2024 11:30 AM CDT Office Visit Division of Pulmonary Medicine in [place], [place] [address] [place] [address] Anum Jacobson APRN, C.N.P., D.N.P. [address] [place] [address] Chronic Obstructive Pulmonary Disease (HCC) (Primary Dx); Smoking Tobacco Use Personal History; Obstructive Sleep Apnea Adult; Body Mass Index 40.0 To 44.9 Adult (HCC); Edema Social History Tobacco Use Types Packs/Day Years Used Date Smoking Tobacco: Former Cigarettes 1 49.1 0 03/14/1974 - 04/24/2023 Smokeless Tobacco: Never Alcohol Use Standard Drinks/Week Comments Yes 0 (1 standard drink = 0.6 oz pur e alcohol) Very very rarely [facility] Utilities Answer Date Recorded In the past 12 months has e electric, gas, oil, or water [employer] threatened to shut off services in your [...] How often do you attend voodoo or faith serv ices? Never 07/20/2019 Active [...] Answer Date Recorded PHQ-2 Score 2 04/29/2019 [facility] of Occupat ional Health - Occupational Stress [...] have a [facility] to live 05/23/2024 Education Answer Date Recorded What is the highest level of school you have completed or the highest degree you have received? Associate degree: academic program 02/12/2019 Comments No Sex and Gender Information Value Date Recorded Sex Assigned at Female 05/07/2023 12:13 PM [employer] Legal Sex Female 3:09 AM [employer] Gender Identity Female 07/20/2019 7:51 PM CDT Sexual Orientation Straight 07/20/2019 7: 51 PM CDT documented as of this encounter Last Filed Vital Signs Vital Sign Reading Time Taken Comments Blood Pressure - - Pulse - - Temperature 36 C (96.8 F) 06/03/2024 10:42 AM CDT Respiratory Rate - - Oxygen Saturation 88% 06/03/2024 10:42 AM CDT Inhaled Oxygen Concentration - - Weight - - Height - - Body Mass Index - - documented in this encounter Progress Notes * Anum Jacobson APRN, C.N.P., D.N.P. - 06/03/2024 11:30 AM CDT SUBJECTIVE CHIEF COMPLAINT / REASON FOR VISIT COPD REFERRAL SOURCE: Anum Jacobson APRN, C.N.P., D.N.P. HISTORY OF PRESENT ILLNESS Genevieve Allison is a 63 y.o. female who presents for COPD follow up. Recall, she is a former smoker who quit in 2023. She has a 47 pack-year smoking history. Her past medical history includes hypertension, right COURIER stroke (2018), abdominal aortic aneurysm (per patient, she will be seen by vascular medicine as this has increased based on her last ultrasound), syncope, and atherosclerotic aortic disease. She was last seen in the pulmonary department in November of 2023 where she continued to experience dyspnea on exertion. 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 She denied any shortness of breath at rest. She reported using her albuterol inhaler twice while working, otherwise denies regular use. She reported that the albuterol helps with her chest tightness. She denied a cough. She would intermittently experience some chest pain/tightness in which she had to use her nitro. She did note some wheezing with activity. She was evaluated locally by her primary care provider for worsening swelling in her lower e xtremities. She had previously been on amlodipine, in which his medication was stopped as it was felt this was contributing to her lower extremity swelling. A BNP was ordered and was within normal limits. She reported an increase in weight, 45 to 50 lb weight gain. She tries to stay active at work,otherwise denies a regular exercise program. She reported intermittent use of her DuoNebs with little improvement in her symptoms. Prior to our visit, she underwent pulmonary function testing that showed moderate obstruction with air trapping and a severe reduction in her diffusing capacity. Her exhaled nitric oxide was within normal at night. Given her increase in shortness of breath, increase in weight, and lower extremity swelling, I did collect a D-dimer and TSH. Given that she had recentlyhad a BNP collected locally that was within normal, I did not repeat this lab. She reported that she is able to start Anoro Ellipta for 1 month, however when she went to refill the medication, the yoo had increased since she was unable to afford this. Given the normal exhaled nitric oxide, I do think it would be appropriate for her to be on LABA/LAMA inhaler therapy. I put through a referral for Bevespi. She was enrolled in the lung cancer screening program with yearly low dose chest CT. She was referred to the weight management clinic to further discuss weight loss strategies. She was to follow up in 6 months. At the end of January, she was hospitalized with COVID-19. She was started on Breo Ellipta and Spiriva Respimat for management of her COPD. Given her frequent exacerbations in the last year, triple therapy was recommended. She was discharged from the hospital with supplemental oxygen. She was evaluated in the sleep medicine clinic where she underwent a polysomnographic study that showed moderateobstructive sleep apnea and mild sleep-related hypoxemia. She was started on CPAP therapy and recommended to follow up with an overnight oximetry while on the CPAP to make sure she did not require any supplemental oxygen. She had met with Cardiology on 05/29/2024 for evaluation and management of prog ressive exertional dyspnea and lower extremity edema. She reported that after she had COVID pneumonia in the fall she initially reported improvement, but then developed significant swelling of her legs and severe shortness of breath. She denied any significant chest pain, although she would occasionally have some mild pain with activity. She has been child on diuretic therapy shortly after she had COVID and did not notice any improvement in her overall symptoms. She underwent an echocardiogram and blood work about a month ago in which she was told was normal. Since then, she has noticed a significant increase in her lower extremity swelling since then. It was recommended that she undergo a coronary angiogram with a right heart catheterization with exercise to further evaluate her symptoms. This is scheduled for 06/04/2024. Today, she continues to experience dyspnea on exertion. 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 Her symptoms will improve with rest. She denies any shortness of breath at rest. She denies a cough. She will experience wheezing with activity. She denies fever, chills, night sweats, chest pain, GERD like symptoms, seasonal allergies, post nasal drip, or unintentional weight loss. She has noticed an increase in generalized swelling which she feels is causing joint pain and stiffness. She will intermittently experience palpitations on occasion with activity. She has noticed a 60 pound weight gain since she quit smoking last ye ar. She reports no change in her diet and she tries to stay active through her occupation. She willcheck her oxygen saturations at home and they remain above 90% on room air. She continues to use her CPAP nightly. She continues to use her Breo Ellipta and Spiriva daily for management of her COPD. She will use her albuterol inhaler on average 3 times when she is working. She tries to use her DuoNeb 3 times a day while at home. She is unsure if these medications help with her shortness of breath. CURRENT DYSPNEA LEVEL: mMRC Breathlessness Scale: Grade [...] bilaterally and oxygenating on room air at 88% Heart: regular rate and rhythm, S1, S2 normal, no murmur Abdomen: soft, non-tender; bowel sounds normal Extremities: generalized nonpitting edema throughout DIAGNOSTICS Test results are as follows: No diagnostics were ordered prior to our visit ASSESSMENT / PLAN Mrs. Allison is a pleasant 63 year old female who presents for COPD follow up. She was last seen in November where she was started on LAMA/LABA therapy. Unfortunately, she was hospitalized at the end of January for COVID-19 and pneumonia. Given her hospitalization, she was started on ICS/LABA therapy, Breo Ellipta. A prescription was also sent for Spiriva Respimat to ensure she was on triple inhaler therapy. She initially felt like she was recovering well from COVID-19 until she started noticing an increase in generalized edema and worsening dyspnea on exertion. She was recently seen by cardiology and is planning to undergo a coronary angiogram scheduled for 06/04/2024. Today, she continues to experience dyspnea on exertion that will improve with rest. This has progressively worsened over the last couple of months following her hospital stay for COVID-19 in January. She denies shortness of breath at rest. She denies a cough. She reports wheezing when she over exert herself. She continues to use her Breo Ellipta and Spiriva Respimat daily. She will use her albuterol and DuoNeb as needed. We discussed that her dyspnea on exertion I suspect is multifactorial andis currently undergoing evaluation by cardiology. From a COPD standpoint, I would like to continue her on her current therapy and make no adjustments to her inhaler medication. Depending on the results of the angiogram, she may benefit from participating in pulmonary rehab or cardiac rehab. She should stay up to date on age appropriate immunizations. An order has been placed for enrollment to [facility] cancer screening program. She is scheduled to meet with our nursing colleagues at the end of June. We discussed at a previous visit meeting with our endocrine colleagues in the weight management clinic given the increase in weight over the last year. She should continue to follow with sleep medicine for management of obstructive sleep apnea. Follow up in 6 months with repeat pulmonary function testing. ASSESSMENT #1 Chronic Obstructive Pulmonary Disease (HCC) #2 Smoking Tobacco Use Personal History #3 Obstructive Sleep Apnea Adult #4 Body Mass Index 40.0 To 44.9 Adult (HCC) #5 Edema Ms. Genevieve Allison does have COPD Gold 3: Severe Group E. PLAN - Continue Breo Ellipta and Spiriva Respimat daily for management of your COPD. Ensure that you rinse your mouth out with water after each use to prevent thrush. - Enrolled in the lung cancer screening program. Phone visit scheduled for 06/28/2024 with our nursing colleagues. - Continue to use your albuterol inhaler and DuoNeb as needed for any shortness of breath or wheezing. - Continue following with cardiology for management of dyspnea on exertion and lower extremity edema - Consider meeting with our endocrine colleagues in the weight management clinic. - Work towards increasing your physical activity. Depending on the results of your coronary angiogram, consider cardiac or pulmonary rehab. - Stay up to date on age appropriate immunizations. - Follow up in 6 months with repeat pulmonary function test. Patient is agreeable with the plan outlined above, all questions were answered. I spent 25 minutes face to face and non-face to face caring for the patient today. Anum Jacobson APRN, C.N.P., D.N.P. documented in this encounter Plan of Treatment Upcoming Encounters Date Type Department Care Team (Late st Contact Info) Description 06/28/2024 3:00 PM CDT Virtual Visit Division of Pulmonary Medicine in [place], [place] [address] [place] [phone] Anum Jacobson APRN, C.N.P., D.N.P. [address] [place] [phone] 07/03/2024 2:00 PM CDT [facility] in [place], [place] [address] [place] [phone] Baylee Pike M.D. [address] [place] [phone] Scheduled Orders Name Type Priority Associated Diagnoses Orde r Schedule Pulmonary Function Tests PFT Routine Chronic Obstructive Pulmonary Disease (HCC) Expected: 12/03/2024, Expires: 09/02/2025 Scheduled Referrals Name Type Priority Associated Diagnoses Orde r Schedule Pulmonary Medicine office visit (clinic) Outpatient Referral Routine Chronic Obstructive Pulmonary Disease (HCC) Expected: 12/03/2024, Expires: 09/02/2025 documented as of this encounter Visit Diagnoses Diagnosis Chronic Obstructive Pulmonary Disease (HCC)- Primary Smoking Tobacco Use Personal History Obstructive Sleep Apnea Adult Body Mass Index 40.0 To 44.9 Adult (HCC) Edema documented in this encounter Additional Health Concerns Assessment Noted Time PHQ-9 Depression Total Score: 6 04/29/19 20 12:40 PM [employer] documented as of this encounter Care Teams Channel Marketing Coordinator Relationship Specialty Start Date End Date Elsewhere, Pcp PCP - General Internal Medicine 04/24/23 documented as of this encounter
[2024-06-28 08:16] VITALS: BP 161/83; PULSE 80; RESP 16; TEMP 36.4; O2SAT 96; BMI 41.0
--- NOTE | 2024-06-28 08:39 | ED_ITS ---
HPI - General Adult General Chief complaint: Extremity Pain/Injury, Upper Stated complaint: hand pain/swelling Time Seen by Provider: 06/28/24 08:29 History of Present Illness HPI narrative: Patient is a a 63-year-old woman who comes in today with bilateral hand pain. Is a dermatitis on her hands which seems to mirror the symptoms of her hand pain. The pain is mostly in the palmar surface with swelling of the fingers and numbness and tingling worsening throughout the day. She is unable to get her symptoms under control with hyib-fjg-cqqeryy anti-inflammatories. Patient has not been evaluated for carpal tunnel in the past and has no history of gout or he arthritis. Patient has a somewhat complex past medical history and has chronic lower extremity edema. No change to chronic issues otherwise. Related Data Home Medications ?Medication ?Instructions ?Recorded ?Confirmed aspirin 325 mg tablet,delayed 325 mg PO HS 02/10/22 06/28/24 release atorvastatin 80 mg tablet 80 mg PO HS 05/04/23 06/28/24 ipratropium 0.5 mg-albuterol 3 mg 3 ml inhalation Q6H PRN 10/24/23 06/28/24 (2.5 mg base)/3 mL nebulization soln valsartan 160 mg tablet 160 mg PO HS 01/30/24 06/28/24 tiotropium bromide 2.5 2 inhalation DAILY 06/28/24 mcg/actuation mist for inhalation (Spiriva Respimat) Previous Rx's ?Medication ?Instructions ?Recorded fluticasone furoate 100 1 inh inhalation DAILY #60 ea 02/04/24 mcg-vilanterol 25 mcg/dose inhalation powder (Breo Ellipta) ipratropium 0.5 mg-albuterol 3 mg 3 ml inhalation Q4H PRN #180 mL 02/04/24 (2.5 mg base)/3 mL nebulization soln ondansetron 4 mg disintegrating 4 mg PO Q6H PRN #20 tabs 02/04/24 tablet albuterol sulfate 90 mcg/actuation 2 puff inhalation Q6H PRN 02/06/24 aerosol inhaler shortness of breath or wheezing #8.5 grams methylprednisolone 4 mg tablets in See Rx Instructions PO .COMPLEX 02/20/24 a dose pack (Medrol (Héctor)) #21 ea prednisone 20 mg tablet 10 - 40 mg (0.5 - 2 x 20 mg) PO 04/15/24 DAILY #18 tabs metoprolol tartrate 25 mg tablet 25 mg PO BID #180 tabs 06/13/24 nitroglycerin 0.4 mg sublingual 0.4 mg sublingual Q5M PRN angina 06/13/24 tablet #30 tabs prednisone 20 mg tablet 10 - 40 mg (0.5 - 2 x 20 mg) PO 06/13/24 DAILY #18 tabs azithromycin 250 mg tablet 250 - 500 mg (1 - 2 x 250 mg) PO 06/17/24 .COMPLEX #6 tabs Allergies Allergy/AdvReac Type Severity Reaction Status Date / Time Penicillins Allergy Severe swollen Verified 06/28/24 08:25 legs Sulfa (Sulfonamide Allergy Severe Hives Verified 06/28/24 08:25 Antibiotics) Review of Systems Status of ROS: Reports: 10 or more systems reviewed and unremarkable except as noted in History and below [facility] Medical History History of syncope ?Z87.898 - Personal history of other specified conditions (ICD-10) Surgical History History of laparoscopy ?Z98.890 - Other specified postprocedural states (ICD-10) History of tubal ligation ?Z98.51 - Tubal ligation status (ICD-10) Social History Problems where you live details: n/a Exam Narrative: Exam Narrative: EXAM GENERAL: Patient appears comfortable and well. EYES: No scleral icterus. LYMPH: No supraclavicular or cervical lymphadenopathy. SKIN: Visible skin seen during exam normal or with benign process only. EXT: Pain and swelling of the hands bilaterally with superficial dermatitis over the palmar surface. Minor swelling of the digits. Pain to palpation noted with stiffness of the wrist. PSYCH: Good eye contact, speech is not pressured. Const: Vital Signs, click to edit/add: Vital Signs - 24 hr 06/28/24 08:16 Temperature 97.6 F Pulse Rate [Right Pulse Oximeter] 80 Respiratory Rate 16 Blood Pressure [Ri ght Upper Arm] 161/83 H Pulse Oximetry 96 Oxygen Delivery Me thod Room Air Course Course ED Course: Patient seen and examined. Vital Signs Vital signs: Initial Vital Signs Temperature 97.6 F 06/28/24 08:16 Temperature Source Temporal Artery Scan 06/28/24 08:16 Pulse Rate 80 06/28/24 08:16 Pulse Rhythm Regular 06/28/24 08:16 Pulse Strength 3+ Normal 06/28/24 08:16 Respiratory Rate 16 06/28/24 08:16 Blood Pressure 161/83 H 06/28/24 08:16 Blood Pressure Mean 109 H 06/28/24 08:16 Blood Pressure Position Sitting 06/28/24 08:16 Pulse Oximetry 96 06/28/24 08:16 Oxygen Delivery Method Room Air 06/28/24 08:16 Vital Signs Temperature 97.6 F 06/28/24 08:16 Pulse Rate 80 06/28/24 08:16 Respiratory Rate 16 06/28/24 08:16 Blood Pressure 161/83 H 06/28/24 08:16 Pulse Oximetry 96 06/28/24 08:16 Oxygen Delivery Method Room Air 06/28/24 08:16 Temperature 97.6 F 06/28/24 08:16 Pulse Rate 80 06/28/24 08:16 Respiratory Rate 16 06/28/24 08:16 Blood Pressure 161/83 H 06/28/24 08:16 Pulse Oximetry 96 06/28/24 08:16 Oxygen Delivery Method Room Air 06/28/24 08:16 Medical Decision Making MDM Narrative Medical decision making narrative: Patient presents with bilateral hand pain. Differential diagnosis would include but not limited to symmetric polyarthritis carpal tunnel syndrome cellulitis inflammatory condition. Did treated with short course of prednisone and she has contact mt or her primary physician to discuss next steps. In the meantime continue current care. Discharge Plan Discharge Clinical Impression: Bilateral hand pain Patient Disposition: Home, Self-Care Condition: Stable Additional Instructions: Continue current medications. Prednisone as directed. Contact Dr. Carrillo or primary physician next week to discuss next steps. Activity Level: No Restrictions Discharge Diet: Regular Prescriptions: No Action aspirin 325 mg tablet,delayed release (DR/EC) 325 mg PO HS atorvastatin 80 mg tablet 80 mg PO HS ipratropium-albuterol 0.5 mg-3 mg(2.5 mg base)/3 mL solution for nebulization 3 ml inhalation Q6H PRN prednisone 20 mg tablet 10 - 40 mg PO DAILY Qty: 18 0RF Rx Instructions: 40 MG PO DAILY FOR 5 DAYS, THEN 20 MG PO DAILY FOR 5 DAYS, THEN 10 MG PO TODD LY FOR 5 DAYS. valsartan 160 mg tablet 160 mg PO HS ipratropium-albuterol 0.5 mg-3 mg(2.5 mg base)/3 mL Solution For Nebulization 3 ml inhalation Q4H PRNQty: 180 0RF ondansetron 4 mg Tablet,Disintegrating 4 mg PO Q6H PRNQty: 20 0RF fluticasone furoate-vilanterol [Breo Ellipta] 100-25 mcg/dose blister with device 1 inh inhalation DAILY Qty: 60 0RF methylprednisolone [Medrol (Héctor)] 4 mg tablets,dose pack See Rx Instructions .ROUTE .COMPLEX Qty: 21 0RF Rx Instructions: orally per package directions Spiriva Respimat 2.5 mcg/actuation mist 2 INHALATION DAILY albuterol sulfate 90 mcg/actuation HFA aerosol inhaler 2 puff inhalation Q6H PRN (Reason: shortness of breath or wheezing) Qty: 8.5 3RF metoprolol tartrate 25 mg tablet 25 mg PO BID Qty: 180 3RF prednisone 20 mg tablet 10 - 40 mg PO DAILY Qty: 18 0RF Rx Instructions: 40 MG PO DAILY FOR 5 DAYS, THEN 20 MG PO DAILY FOR 5 DAYS, THEN 10 MG PO DAILY FOR 5 DAYS. nitroglycerin 0.4 mg tablet, sublingual 0.4 mg sublingual Q5M PRN (Reason: angina) Qty: 30 7RF azithromycin 250 mg tablet 250 - 500 mg PO .COMPLEX Qty: 6 0RF Rx Instructions: For 250 mg dose pack: take 500 mg today (day 1), then 250 mg for 4 days (days 2-5) orally; Follow Up/Referrals: Rupali Tate MD [Primary Care Provider] - Stand Alone Forms: [employer] Info Instructions
--- OUTSIDE RECORDS SUMMARY | 2024-06-28 08:49 | XMS_ITS | Encounter Summary ---
Author Organization [facility] Address [address] [place] [address] Care Team Providers Care Connie Scratcher Name Role Phone Elsewhere, Pcp Primary Care Provider Unavailabl e Reason for Visit * Auth/Cert (Routine) Specialty Diagnoses / Procedures Referred By Carey t Referred To Contact Diagnoses Atherosclerotic Heart Disease [place] Coronary Artery With Other Forms Angina Pectoris (Stable Angina/Angina Of Exertion) Hypertension Essential Primary Edema Pitting Dyspnea On Exertion Atherosclerotic Heart Disease [place] Coronary Artery With Other Forms Angina Pectoris (Stable Angina/Angina Of Exertion) [I25.118] Hypertension Essential Primary [I10] Edema Pitting [R60.9] Dyspnea On Exertion [R06.09] Procedures [place] CATH PLC COR ARTY/ANG W RT HRT [place] EXERCISE STUDY W HEMODYN [place] CORONARY ANGIOGRAPHY WITH POSSIBLE INTERVENTION HEART CATHETERIZATION - RIGHT EXERCISE Chuck Townsend M.D., Ph.D. [address] [place] [address] Phone: tel: fax: Referral ID Status Reason Start Date Expiration Date Visits Re quested Visits Authorized [id number] 1 1 Encounter Details Date Type Department Care Team (Late st Contact Info) Description 06/04/2024 12:50 PM CDT - 06/04/2024 3:20 PM CDT Surgery Division of Cardiovascular Diseases in [place], [place] [address] [place] [address] Ignacio Vail M.D., Ph.D. [address] [place] [phone] Coronary Angiography Social History Tobacco Use Types Packs/Day Years Used Date Smoking Tobacco: Former Cigarettes 1 49.1 0 03/14/1974 - 04/24/2023 Smokeless Tobacco: Never Alcohol Use Standard Drinks/Week Comments Yes 0 (1 standard drink = 0.6 oz pur e alcohol) Very very rarely [facility] Utilities Answer Date Recorded In the past 12 months has th e electric, gas, oil, or water [employer] threatened to shut off services in your [...] Never 07/20/2019 How often do you attend christian or congregation serv ices? Never 07/20/2019 Active [...] Answer Date Recorded PHQ-2 Score 2 04/29/2019 [facility] of Occupat ional Health - Occupational Stress [...] your living situation today? I have a [facility] place to live 05/23/2024 Education Answer Date Recorded What is the highest level of school you have completed or the highest degree you have received? Associate degree: academic program 02/12/2019 Comments No Sex and Gender Information Value Date Recorded Sex Assigned at Female 05/07/2023 12:13 PM PURCHASING ASSOCIATE Legal Sex Female 3:09 AM PURCHASING ASSOCIATE Gender Identity Female 07/20/2019 7:51 PM CDT [...] Virtual Visit Division of Pulmonary Medicine in [place], [place] [address] [place] [phone] Anum Jacobson, AMEENA, C.N.P., D.N.P. [address] [place] [phone] 07/03/2024 2:00 PM CDT [facility] in [place], [place] [address] [place] [phone] Baylee Pike M.D. [address] [place] [phone] documented as of this encounter Procedures Procedure Name Priority Date/Time Associated Diagnosis Comments CARDIAC CATHETERIZATION Routine 06/05/19 2:23 PM CDT Atherosclerotic Heart Disease [place] Coronary Artery With Other Forms Angina Pectoris (Stable Angina/Angina Of Exertion) Hypertension Essential Primary Edema Pitting Dyspnea On Exertion CARDIAC CATHETERIZATION Routine 06/05/19 2:23 PM CDT Atherosclerotic Heart Disease [place] Coronary Artery With Other Forms Angina Pectoris [...] atherosclerosis PRE-PROCEDURE DIAGNOSIS 1. Atherosclerotic Heart Disease [place] Coronary Artery With Other Forms Angina Pectoris [...] atherosclerosis PRE-PROCEDURE DIAGNOSIS 1. Atherosclerotic Heart Disease [place] Coronary Artery With Other FormsAngina Pectoris (Stable [...] Ph.D. LAB BLOOD ADD-ON F inal Result [facility] [address] [place] [address], [place] [facility] [address] [place] [address] documented in this encounter Visit Diagnoses Diagnosis Atherosclerotic Heart Disease [place] Coronary Artery With Other Forms Angina Pectoris (Stable Angina/Angina Of Exertion) Hypertension Essential Primary Edema Pitting Dyspnea On Exertion documented in this encounter Admitting Diagnoses Diagnosis Atherosclerotic Heart Disease [place] Coronary Artery With Other Forms Angina Pectoris [...] Total Score: 6 04/29/19 20 12:40 PM PURCHASING ASSOCIATE documented as of this encounter Care Teams Connie Scratcher Relationship Specialty Start Date End Date Elsewhere, Pcp PCP - General Internal Medicine 04/24/23 documented as of this encounter
--- OUTSIDE RECORDS SUMMARY | 2024-06-28 08:49 | XMS_ITS | Encounter Summary ---
Author Organization [facility] Address [address] [place] [address] Care Team Providers Care Log Rafter Name Role Phone Elsewhere, Pcp Primary Care Provider Unavailabl e Reason for Visit * Auth/Cert (Routine) Specialty Diagnoses / Procedures Referred By Carey t Referred To Contact Diagnoses Atherosclerotic Heart Disease [place] Coronary Artery With Other Forms Angina Pectoris (Stable Angina/Angina Of Exertion) Hypertension Essential Primary Edema Pitting Dyspnea On Exertion Atherosclerotic Heart Disease [place] Coronary Artery With Other Forms Angina Pectoris (Stable Angina/Angina Of Exertion) [I25.118] Hypertension Essential Primary [I10] Edema Pitting [R60.9] Dyspnea On Exertion [R06.09] Procedures [place] CATH PLC COR ARTY/ANG W RT HRT [place] EXERCISE STUDY W HEMODYN [place] CORONARY ANGIOGRAPHY WITH POSSIBLE INTERVENTION HEART CATHETERIZATION - RIGHT EXERCISE Chuck Townsend M.D., Ph.D. 200 [place] [address] Phone: tel: fax: Referral ID Status Reason Start Date Expiration Date Visits Re quested Visits Authorized [id number] 1 1 Encounter Details Date Type Department Care Team (Latest Contact Info) Description 06/04/2024 10:52 AM CDT - 06/04/2024 4:53 PM CDT Hospital Encounter Division of Cardiovascular Diseases in [place], [place] [address] [place] [phone] Fuentes Stuart M.D. 200 [place] [phone] Atherosclerotic Heart Disease [place] Coronary Artery With Other Forms Angina Pectoris [...] In the past 12 months has e [employer], gas, oil, or water [employer] threatened to shut off services in your [...] Never 07/20/2019 How often do you attend restorationist or confucianism serv ices? Never 07/20/2019 Active [...] Answer Date Recorded PHQ-2 Score 2 04/29/2019 [facility] - Occupational Stress Questionnaire Answer Date Recorded [...] Sex Assigned at Female 05/07/2023 12:13 PM CLIENT RELATIONS REPRESENTATIVE Legal Sex Female 3:09 AM CLIENT RELATIONS REPRESENTATIVE Gender Identity Female 07/20/2019 7:51 PM CDT [...] Virtual Visit Division of Pulmonary Medicine in [place], [place] [address] [place] [phone] Anum Jacobson, AMEENA, C.N.P., D.N.P. [address] [place] [phone] 07/03/2024 2:00 PM CDT Tele[facility]icine [facility] in [place], [place] [address] [place] [phone] Baylee Pike M.D. [address] [place] [phone] documented as of this encounter Procedures Procedure Name Priority Date/Time Associated Diagnosis Comments CARDIAC CATHETERIZATION Routine 06/05/19 2:23 PM CDT Atherosclerotic Heart Disease [place] Coronary Artery With Other Forms Angina Pectoris (Stable Angina/Angina Of Exertion) Hypertension Essential Primary Edema Pitting Dyspnea On Exertion CARDIAC CATHETERIZATION Routine 06/05/19 2:23 PM CDT Atherosclerotic Heart Disease [place] Coronary Artery With Other Forms Angina Pectoris [...] atherosclerosis PRE-PROCEDURE DIAGNOSIS 1. Atherosclerotic Heart Disease [place] Coronary Artery With Other Forms Angina Pectoris [...] atherosclerosis PRE-PROCEDURE DIAGNOSIS 1. Atherosclerotic Heart Disease [place] Coronary Artery With Other FormsAngina Pectoris (Stable [...] Ph.D. LAB BLOOD ADD-ON F inal Result [facility] [address] [place] [address], [facility] [address] [place] [address] documented in this encounter Visit Diagnoses Diagnosis Atherosclerotic Heart Disease [place] Coronary Artery With Other Forms Angina Pectoris (Stable Angina/Angina Of Exertion) Hypertension Essential Primary Edema Pitting Dyspnea On Exertion Atherosclerotic Heart Disease [place] Coronary Artery With Other Forms Angina Pectoris (Stable Angina/Angina Of Exertion) Hypertension Essential Primary Edema Pitting Dyspnea On Exertion documented in this encounter Admitting Diagnoses Diagnosis Atherosclerotic Heart Disease [place] Coronary Artery With Other Forms Angina Pectoris [...] Total Score: 6 04/29/19 20 12:40 PM CLIENT RELATIONS REPRESENTATIVE documented as of this encounter Care Teams Log Rafter Relationship Specialty Start Date End Date Elsewhere, Pcp PCP - General Internal Medicine 04/24/23 documented as of this encounter
--- OUTSIDE RECORDS SUMMARY | 2024-06-28 08:49 | XMS_ITS | Encounter Summary ---
Author Organization [facility] Address [address] [place] [address] Care Team Providers Care Slab Lifting Supervisor Name Role Phone Elsewhere, Pcp Primary Care Provider Unavailabl e Reason for Visit * Reason Comments Patient Education Encounter Details Date Type Department Care Team (Latest Contact Info) Description 06/03/2024 11:00 AM CDT Virtual Visit Department of Cardiovascular Medicine in [place], [place] [address] [place] [phone] Chuck Townsend M.D., Ph.D. [address] [place] [phone] Phoebe Hawley RTejas [address] [place] [phone] Atherosclerotic Heart Disease [place] Coronary Artery With Other Forms Angina Pectoris (Stable Angina/Angina Of Exertion) (Primary Dx); Hypertension Essential Primary; Edema Pitting; Dyspnea On Exertion Social History Tobacco Use Types Packs/Day Years Used Date Smoking Tobacco: Former Cigarettes 1 49.1 0 03/14/1974 - 04/24/2023 Smokeless Tobacco: Never Alcohol Use Standard Drinks/Week Comments Yes 0 (1 standard drink = 0.6 oz pur e alcohol) Very very rarely [facility] Utilities Answer Date Recorded In the past 12 months has [employer] electric, gas, oil, or water company threatened [...] Never 07/20/2019 How often do you attend advent or zoroastrian serv ices? Never 07/20/2019 Active Member of [...] Answer Date Recorded PHQ-2 Score 2 04/29/2019 [facility] of Occupat ional Health - Occupational Stress [...] your living situation today? I have a [facility] place to live 05/23/2024 Education Answer Date Recorded What is the highest level of school you have completed or the highest degree you have received? Associate degree: academic program 02/12/2019 Comments No Sex and Gender Information Value Date Recorded Sex Assigned at Female 05/07/2023 12:13 PM SUPERVISOR FRUIT GRADING Legal Sex Female 3:09 AM SUPERVISOR FRUIT GRADING Gender Identity Female 07/20/2019 7:51 PM CDT Sexual Orientation Straight 07/20/2019 7: 51 PM CDT documented as of this encounter Progress Notes * Phoebe Hawley R.N. - 06/03/2024 11:00 AM CDT SUBJECTIVE REASON FOR VISIT Pre-procedure education OBJECTIVE Nurse education visit was completed within the Pre-Procedure Clinic (PPC) as ordered by the referring provider for a Medical Center Manager readiness review and education prior to procedure. [...] Your Cardiac Catheterization or Heart Rhythm Procedure: [facility] pamphlet for further details. Taking all medications as instructed. Calling the [facility] Service Line ([phone]) the evening before the procedure between the hours of 7:00 pm and midnight to learn what time and where to report to the hospital the next day. Needing a responsible adult (18 years of age or older) to be present the day of procedure includingat discharge for transportation home. Planning to stay within 100 miles of [facility] overnight. Visitor Policy Please check the [place] Visitor Policy website for the most up to date visitor policy information. Disposition/Recommendation: protocol orders and self-care are appropriate at this time, patient encouraged to call back with questions Information/Education: patient/caller able to teach back Caller agreeable to plan of care: yes The following references were used: [facility] protocol: Cardiovascular Clinic Pre-Cardiac Invasive Catheterization Procedure Patient Management and Cardiac Medical Center Manager Procedural Practice Guidelines documented in this encounter Plan of Treatment Upcoming Encounters Date Type Department Care Team (Late st Contact Info) Description 06/28/2024 3:00 PM CDT Virtual Visit Division of Pulmonary Medicine in [place], [place] [address] [place] [phone] Anum Jacobson, AMEENA, C.N.P., D.N.P. [address] [place] [phone] 07/03/2024 2:00 PM CDT Telemedicine Center for Sleep Medicine in [place], [place] [address] [place] [phone] Baylee Pike M.D. [address] [place] [phone] documented as of this encounter Visit Diagnoses Diagnosis Atherosclerotic Heart Disease [place] Coronary Artery With Other Forms Angina Pectoris (Stable Angina/Angina Of Exertion)- Primary Hypertension Essential Primary Edema Pitting Dyspnea On Exertion documented in this encounter Additional Health Concerns Assessment Noted Time PHQ-9 Depression Total Score: 6 04/29/19 20 12:40 PM SUPERVISOR FRUIT GRADING documented as of this encounter Care Teams Slab Lifting Supervisor Relationship Specialty Start Date End Date Elsewhere, Pcp PCP - General Internal Medicine 04/24/23 documented as of this encounter
--- OUTSIDE RECORDS SUMMARY | 2024-06-28 08:49 | XMS_ITS | Encounter Summary ---
Author Organization [facility] Address [address] [place] [address] Care Team Providers Care Itinerant Teacher Assistant Name Role Phone Elsewhere, Pcp Primary [...] oz pur e alcohol) Very very rarely [facility] Utilities Answer Date Recorded In the past 12 months has [facility] [employer], gas, oil, or water [employer] threatened to shut off services in your [...] How often do you attend methodist or confucianism serv ices? Never 07/20/2019 Active [...] Answer Date Recorded PHQ-2 Score 2 04/29/2019 [facility] of Occupat ional Health - Occupational [...] your living situation today? I have a [facility] place to live 05/23/2024 Education Answer Date Recorded What is the highest level of school you have completed or the highest degree you have received? Associate degree: academic program 02/12/2019 Comments No Sex and Gender Information Value Date Recorded Sex Assigned at Female 05/07/2023 12:13 PM REPROGRAPHICS ASSOCIATE Legal Sex Female 3:09 AM REPROGRAPHICS ASSOCIATE Gender Identity Female 07/20/2019 7:51 PM CDT Sexual Orientation Straight 07/20/2019 7: 51 PM CDT documented as of this encounter Plan of Treatment Upcoming Encounters Date Type Department Care Team (Late st Contact Info) Description 06/28/2024 3:00 PM CDT Virtual Visit Division of Pulmonary Medicine in [place], [place] [address] [place] [phone] Anum Jacobson, AMEENA, C.N.P., D.N.P. [address] [place] [phone] 07/03/2024 2:00 PM CDT Telemedicine [facility] in [place], [place] [address] [place] [phone] Baylee Pike M.D. [address] [place] [phone] documented as of this encounter Procedures Procedure [...] Total Score: 6 04/29/19 20 12:40 PM REPROGRAPHICS ASSOCIATE documented as of this encounter Care Teams Itinerant Teacher Assistant Relationship Specialty Start Date End Date Elsewhere, Pcp PCP - General Internal Medicine 04/24/23 documented as of this encounter
--- OUTSIDE RECORDS SUMMARY | 2024-06-28 08:50 | XMS_ITS | Encounter Summary ---
Author Organization [facility] Address [address] [place] [address] Care Team Providers Care Film And Video Graphics Designer Name Role Phone Elsewhere, Pcp Primary Care Provider Unavailabl e Reason for Visit * Reason Comments Post-op Problem Encounter Details Date Type Department Care Team (Late st Contact Info) Description 06/12/2024 9:58 PM CDT - 06/13/2024 4:15 AM CDT Emergency [facility] Emergency Department [address] [place] [phone] Leonardo Jones M.D. [address] [place] [phone] Unspecified Injury Radial Artery Forearm Level Right Initial (Primary Dx); Pain Postoperative Discharge Disposition: Home or Self Care Social History Tobacco Use Types Packs/Day Years Used Date Smoking Tobacco: Former Cigarettes 1 49.1 0 03/14/1974 - 04/24/2023 Smokeless Tobacco: Never Alcohol Use Standard Drinks/Week Comments Yes 0 (1 standard drink = 0.6 oz pur e alcohol) Very very rarely [facility] Utilities Answer Date Recorded [...] often do you attend oriental orthodox or buddhism serv ices? Never 07/20/2019 Active Member of [...] Date Recorded PHQ-2 Score 2 04/29/2019 [facility] of Occupat ional Health - Occupational Stress [...] your living situation today? I have a [facility] place to live 05/23/2024 Education Answer Date Recorded What is the highest level of school you have completed or the highest degree you have received? Associate degree: academic program 02/12/2019 Comments No Sex and Gender Information Value Date Recorded Sex Assigned at Female 05/07/2023 12:13 PM STEEL ERECTOR APPRENTICE Legal Sex Female 3:09 AM STEEL ERECTOR APPRENTICE Gender Identity Female 07/20/2019 7:51 PM CDT [...] shoulder. Notably, she is flying out to [place] on Monday for a week long vacation. 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 Patient lives in [place]. MEDICATIONS Medications Ordered Prior to Encounter[3] ALLERGIES [...] discussed that since she is flying to [place] on Monday, we will plan for tentative [...] contact us with questions or concerns at [phone]. Tika Baker M.D. 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 She has tried [id number] pain medications and topical creams with no [...] 10:02 PM CDT Patient presents to the [facility] ED via private vehicle for post-op problem. [...] Virtual Visit Division of Pulmonary Medicine in [place], [place] [address] [place] [phone] Anum Jacobson, AMEENA, C.N.P., D.N.P. [address] [place] [phone] 07/03/2024 2:00 PM CDT Telemedicine [facility] in [place], [place] [address] [place] [phone] Baylee Pike M.D. [address] [place] [phone] documented as of this encounter Procedures Procedure [...] and management can be found on the [employer] site. Link [email or web address] Procedure Note Maksim Montoya M.D. - 06/13/2024 EXAM: US UPPER EXTREMITY VEINS RIGHT Exam performed with color and spectral Doppler analysis. COMPARISON: None. FINDINGS: RIGHT: Internal Jugular Vein: Negative. Innominate Vein: Negative. Subclavian Vein: Negative. Axillary Vein: Negative. Brachial Veins: Negative. Cephalic Vein: Negative. Basilic Vein: Negative. Information on venous thrombosis and management can be found on the[employer] site. [email or web address] IMPRESSION: Negative for acute DVT in the [...] ADD-ON Fi nal Result Performing Organization Address City/[facility]/ZIP Co de Phone Number [facility] [address] [place] [address] * (ABNORMAL) CRP (C-Reactive Protein) (06/13/2024 12:53 AM CDT) [facility] C-Reactive Protein (CRP), S 5.3(H) <5.0 mg/L 06/13/2024 2:09 AM CDT DT Blood (Blood, Venous) 06/13/2024 12:53 AM CDT 06/13/2024 1:45 AM CDT Leonardo Jones M.D. LAB BLOOD ADD-ON Fi nal Result [facility] [address] [place] [address] * (ABNORMAL) CBC with Differential, Blood (06/13/2024 12:53 AM CDT) [facility] Hemoglobin 11.4(L) 11.6 - 15.0 g/dL [...] M.D. LAB BLOOD ADD-ON Fi nal Result [facility] [address] [place] [address], [facility] [address] [place] [address] [facility] [address] [place] [address] * Basic Metabolic Panel (06/13/2024 12:53 AM CDT) [facility] Potassium, P 4.1 3.6 - 5.2 [...] M.D. LAB BLOOD ADD-ON Fi nal Result [facility] [address] [place] [address], [facility] DTL [facility] [address] [place] [address] * (ABNORMAL) Sedimentation Rate (06/13/2024 12:53 AM CDT) Sedimentation Rate, B 24(H) 2 - 22 mm/h 06/13/2024 2:23 AM CDT DTL Blood (Blood, Venous) 06/13/2024 12:53 AM CDT 06/13/2024 1:29 AM CDT Leonardo Jones M.D. LAB BLOOD ADD-ON Fi nal Result [facility] [address] [place] [address], [facility] [address] [place] [address] documented in this encounter Visit Diagnoses Diagnosis Unspecified Injury Radial Artery Forearm Level Right Initial- Primary Pain Postoperative documented in this encounter Additional Health Concerns Assessment Noted Time PHQ-9 Depression Total Score: 6 04/29/19 20 12:40 PM STEEL ERECTOR APPRENTICE documented as of this encounter Care Teams Film And Video Graphics Designer Relationship Specialty Start Date End Date Elsewhere, Pcp PCP - General Internal Medicine 04/24/23 documented as of this encounter
--- OUTSIDE RECORDS SUMMARY | 2024-06-28 08:50 | XMS_ITS | Clinical Summary ---
Author Organization [employer] [facility] Address [address] [place] [address] Care Team Providers Care Chemical Dependency Professional Name Role Phone Rupali Tate MD Primary Care Provider [phone] Allergies Active Allergy Reactions Criticality Noted Date [...] unspecified vessel or lesion type, unspecified whether [place] or transplanted heart Take 1 tablet by mouth once daily. 90 tablet 3 9 Active Active Problems No known active problems Encounters Date Type Department Care Team Description 04/29/2024 8:00 AM SAND MILL OPERATOR FACING SAND Ancillary Procedure [place] Heart Index at [facility] [address] [place] [address] from Last 3 Months Social History Tobacco [...] on file Legal Sex Female 8:02 AM SAND MILL OPERATOR FACING SAND Gender Identity Not on file Sexual Orientation Not on file Obstetrics History Last Filed Vital Signs Vital Sign Reading Time Taken Comments Blood Pressure 126/68 01/02/2019 12:51 PM CDT Pulse 102 01/02/2019 12:51 PM CDT Temperature 36.8 C (98.3 F) 02/18/2016 10:05 AM SAND MILL OPERATOR FACING SAND Respiratory Rate - - Oxygen Saturation 95% [...] COMPLETE WO CONTRAST Routine 04/29/2024 8:43 AM SAND MILL OPERATOR FACING SAND Other forms of dyspnea AZURE ARCHITECT THIN PREP PAP SCREEN IMAGED Routine 06/20/2016 5:30 PM CDT from Last 3 Months or Most Recently Relevant to Health Maintenance Results * ECHO TTE COMPLETE WO CONTRAST (04/29/2024 8:43 AM SAND MILL OPERATOR FACING SAND) AORTIC VALVE MEAN PG 9 mmHg EJECTION FRACTION 64 % LVEDD 4.3 cm EJECTION FRACTION 60 - 65% Anatomical Region Laterality Modality Ultrasound 04/29/2024 8:08 AM SAND MILL OPERATOR FACING SAND Narrative 04/29/2024 10:30 AM SAND MILL OPERATOR FACING SAND 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 This study was interpreted by an [facility] accredited facility. CC: [facility]. 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 CC: [facility] (med records) [facility]. Final us Rupali Tate MD ECHO ORD Final Resu lt * AZURE ARCHITECT THIN PREP PAP SCREEN IMAGED (06/20/2016 5:30 PM CDT) Case Report Gynecologic Cytology Report Case: [id number] Authorizing Provider: Unknown, Doctor Collected: 06/20/2016 1730 First Screen: Perlita Mann Received: 06/22/2016 1226 Specimen: AZURE ARCHITECT ThinPrep Vial Screening, Cervical/Vaginal 06/30/2016 11:31 AM CDT [facility] INTERPRETATION/ RESULT NEGATIVE FOR INTRAEPITHELIAL LESION OR MALIGNANCY (NIL) (none) 06/30/2016 11:31 AM CDT [facility] at 1131 CDT SPECIMEN ADEQUACY Satisfactory for evaluation Endocervical component present 06/30/2016 11:31 AM CDT [facility] HPV REQUEST HPV and PAP 06/30/2016 11:31 AM CDT [facility] Last Pap Date 02/20/2012 06/30/2016 11:31 AM CDT [facility] Last Pap Result NIL 7 11:31 AM CDT [facility] Menstrual Status 06/30/2016 11:31 AM CDT [facility] Comment:N/A Automated Review Successful 06/30/2016 11:31 AM CDT [facility] Comment:Specimen processed s uccessfully by automated type bar and segment assembler device, [employer] Imaging System, [employer] ANCILLARY TESTING AZURE ARCHITECT HPV Ordered, Please see separate report 06/30/2016 11:[address] [facility] Note The pap test is a screening technique, not a diagnostic procedure. It is used primarily to screen for squamous cancers and precursor lesions. Published studies have shown that it is subject to both false negative and false positive results. The pap test should not be used as the sole means to diagnose or exclude pre-malignant and malignant lesions. Interpreted at [facility] ([facility], [facility], [facility], [facility], [facility], [facility], [facility]) 06/30/2016 11:[address] [facility] Other (Cervical/Vagina l) 06/20/2016 5:30 PM CDT 06/22/2016 12:26 PM CDT us Doctor Unknown PATHOLOGY/CYTOLOGY Final Result [facility] [address] [place] [address], from Last 3 Months or Most Recently Relevant to Health Maintenance Insurance [employer] Care Teams Chemical Dependency Professional Relationship Specialty Start Date End Date Rupali Tate MD [address] [place] [phone] PCP - General Internal Medicine 02/22/10
--- OUTSIDE RECORDS SUMMARY | 2024-06-28 08:50 | XMS_ITS | Encounter Summary ---
Author Organization [facility] Address [address] [place] [address] Care Team Providers Care Glove Printer Name Role Phone Elsewhere, Pcp Primary Care Provider Unavailabl e Encounter Details Date Type Department Care Team (Late st Contact Info) Description 06/13/2024 Results Follow-Up [facility] [address] [place] [address] Anum Carroll, R.N. US Upper Extremity Arteries Right Social History Tobacco Use Types Packs/Day Years Used Date Smoking Tobacco: Former Cigarettes 1 49.1 0 03/14/1974 - 04/24/2023 Smokeless Tobacco: Never Alcohol Use Standard Drinks/Week Comments Yes 0 (1 standard drink = 0.6 oz pur e alcohol) Very very rarely [facility] Utilities Answer Date Recorded In the past 12 months has [employer], gas, oil, or water [employer] threatened to shut off services in your [...] Never 07/20/2019 How often do you attend restoration or baptism serv ices? Never 07/20/2019 Active [...] [facility] [place] of Occupat ional Health - Occupational Stress [...] your living situation today? I have a [facility] place to live 05/23/2024 Education Answer Date Recorded What is the highest level of school you have completed or the highest degree you have received? Associate degree: academic program 02/12/2019 Comments No Sex and Gender Information Value Date Recorded Sex Assigned at Female 05/07/2023 12:13 PM INSULATION HELPER Legal Sex Female 3:09 AM INSULATION HELPER Gender Identity Female 07/20/2019 7:51 PM CDT Sexual Orientation Straight 07/20/2019 7: 51 PM CDT documented as of this encounter Plan of Treatment Upcoming Encounters Date Type Department Care Team (Late st Contact Info) Description 06/28/2024 3:00 PM CDT Virtual Visit Division of Pulmonary Medicine in [place], [place] [address] [place] [phone] Anum Jacobson APRN, C.N.P., D.N.P. [address] [place] [phone] 07/03/2024 2:00 PM CDT [facility] in [place], [place] [address] [place] [phone] Baylee Pike M.D. [address] [place] [phone] documented as of this encounter Visit Diagnoses Not on filedocumented in this encounter Additional Health Concerns Assessment Noted Time PHQ-9 Depression Total Score: 6 04/29/19 12:40 PM INSULATION HELPER documented as of this encounter Care Teams Glove Printer Relationship Specialty Start Date End Date Elsewhere, Pcp PCP - General Internal Medicine 04/24/23 documented as of this encounter
--- OUTSIDE RECORDS SUMMARY | 2024-06-28 08:50 | XMS_ITS | Encounter Summary ---
Author Organization [facility] Address [address] [place] [address] Care Team Providers Care Plant Anatomy Teacher Name Role Phone Elsewhere, Pcp Primary Care Provider Unavailabl e Encounter Details Date Type Department Care Team (Latest Contact Info) Description 06/12/2024 Results Follow-Up Department of Cardiovascular Medicine in [place], [place] [address] [place] [address] Chuck Townsend M.D., Ph.D. [address] [place] [phone] Cardiac Catheterization Social History Tobacco Use Types [...] How often do you attend orthodoxy or jainism serv ices? Never 07/20/2019 Active Member of [...] Answer Date Recorded PHQ-2 Score 2 04/29/2019 [facility] - Occupational Stress Questionnaire Answer [...] your living situation today? I [facility] a [facility] place [facility] live 05/23/2024 Education Answer Date Recorded What is the highest level of school you have completed or the highest degree you have received? Associate degree: academic program 02/12/2019 Comments No Sex and Gender Information Value Date Recorded Sex Assigned at Female 05/07/2023 12:13 PM BUILDING SERVICES TECHNICIAN Legal Sex Female 3:09 AM BUILDING SERVICES TECHNICIAN Gender Identity Female 07/20/2019 7:51 PM CDT Sexual Orientation Straight 07/20/2019 7: 51 PM CDT documented as of this encounter Plan of Treatment Upcoming Encounters Date Type Department Care Team (Late st Contact Info) Description 06/28/2024 3:00 PM CDT Virtual Visit Division of Pulmonary Medicine in [place], [place] [address] [place] [phone] Anum Jacobson, AMEENA, C.N.P., D.N.P. [address] [place] [phone] 07/03/2024 2:00 PM CDT [facility] in [place], [place] [address] [place] [phone] Baylee Pike M.D. [address] [place] [phone] documented as of this encounter Visit Diagnoses Not on filedocumented in this encounter Additional Health Concerns Assessment Noted Time PHQ-9 Depression Total Score: 6 04/29/19 20 12:40 PM BUILDING SERVICES TECHNICIAN documented as of this encounter Care Teams Plant Anatomy Teacher Relationship Specialty Start Date End Date Elsewhere, Pcp PCP - General Internal Medicine 04/24/23 documented as of this encounter
--- OUTSIDE RECORDS SUMMARY | 2024-06-28 08:50 | XMS_ITS | Encounter Summary ---
Author Organization [facility] Address [address] [place] [address] Care Team Providers Care Asset Specialist Name Role Phone Elsewhere, Pcp Primary Care Provider Unavailabl e Reason for Referral * Outpatient (Routine) - Authorized Specialty Diagnoses / Procedures Referred By Carey t Referred To Contact Diagnoses Atherosclerotic Heart Disease [place] Coronary Artery With Other Forms Angina Pectoris (Stable Angina/Angina Of Exertion) Dyspnea On Exertion Procedures Cardiac Rehab Program Chuck Townsend M.D., Ph.D. [address] [place] [phone] Phone: tel: fax: [facility] Referral ID Status Reason Start Date Expiration Date V isits Requested Visits Authorized [id number] Authorized 06/12/2024 09/12/2025 50 50 Encounter Details Date Type Department Care Team (Latest Contact Info) Description 06/12/2024 Orders Only Department of Cardiovascular Medicine in [place], [place] [address] [place] [phone] Chuck Townsend M.D., Ph.D. [address] [place] [phone] Atherosclerotic Heart Disease [place] Coronary Artery With Other Forms Angina Pectoris (Stable Angina/Angina Of Exertion) (Primary Dx); Dyspnea On Exertion Social History Tobacco Use Types Packs/Day Years Used Date Smoking Tobacco: Former Cigarettes 1 49.1 0 03/14/1974 - 04/24/2023 Smokeless Tobacco: Never Alcohol Use Standard Drinks/Week Comments Yes 0 (1 standard drink = 0.6 oz pur e alcohol) Very very rarely [facility] Utilities Answer Date Recorded In the past 12 months has e [employer] [place], gas, oil, or water [employer] threatened to shut off services in your [...] How often do you attend restoration or scientologist serv ices? Never 07/20/2019 Active Member of [...] Answer Date Recorded PHQ-2 Score 2 04/29/2019 [place] of Occupat ional Health - Occupational Stress [...] your living situation today? I have a [facility] place to live 05/23/2024 Education Answer Date Recorded What is the highest level of school you have completed or the highest degree you have received? Associate degree: academic program 02/12/2019 Comments No Sex and Gender Information Value Date Recorded Sex Assigned at Female 05/07/2023 12:13 PM SUCCESS COACH Legal Sex Female 3:09 AM SUCCESS COACH Gender Identity Female 07/20/2019 7:51 PM CDT Sexual Orientation Straight 07/20/2019 7: 51 PM CDT documented as of this encounter Plan of Treatment Upcoming Encounters Date Type Department Care Team (Late st Contact Info) Description 06/28/2024 3:00 PM CDT Virtual Visit Division of Pulmonary Medicine in [place], [place] [address] [place] [phone] Anum Jacobson APRN, C.N.P., D.N.P. [address] [place] [phone] 07/03/2024 2:00 PM CDT [facility] in [place], [place] [address] [place] [phone] Baylee Pike M.D. [address] [place] [phone] Scheduled Orders Name Type Priority Associated Diagnoses Orde r Schedule Cardiac Rehab Program Card Rehab Routine Atherosclerotic Heart Disease [place] Coronary Artery With Other Forms Angina Pectoris (Stable Angina/Angina Of Exertion) Dyspnea On Exertion 50 Occurrences starting 06/12/2024 until 06/12/2025 documented as of this encounter Visit Diagnoses Diagnosis Atherosclerotic Heart Disease [place] Coronary Artery With Other Forms Angina Pectoris (Stable Angina/Angina Of Exertion)- Primary Dyspnea On Exertion documented in this encounter Additional Health Concerns Assessment Noted Time PHQ-9 Depression Total Score: 6 04/29/19 20 12:40 PM SUCCESS COACH documented as of this encounter Care Teams Asset Specialist Relationship Specialty Start Date End Date Elsewhere, Pcp PCP - General Internal Medicine 04/24/23 documented as of this encounter
--- OUTSIDE RECORDS SUMMARY | 2024-06-28 08:50 | XMS_ITS | Encounter Summary ---
Author Organization [facility] Address [address] [place] [address] Care Team Providers Care Office Support Clerk Name Role Phone Elsewhere, Pcp Primary Care Provider Unavailabl e Reason for Visit * Reason Onset Date Comments cardiac rehabilitation discussion 06/12/2024 Encounter Details Date Type Department Care Team (Latest Contact Info) Description 06/12/2024 Clinical Communication Department of Cardiovascular Medicine in [address] [place] [phone] Sarah Milligan [address] [place] [phone] cardiac rehabilitation discussion Social History Tobacco Use Types Packs/Day Years Used Date Smoking Tobacco: Former Cigarettes 1 49.1 0 03/14/1974 - 04/24/2023 Smokeless Tobacco: Never Alcohol Use Standard Drinks/Week Comments Yes 0 (1 standard drink = 0.6 oz pur e alcohol) Very very rarely [facility] Utilities Answer Date Recorded In [...] How often do you attend judaism or church serv ices? Never 07/20/2019 Active [...] Answer Date Recorded PHQ-2 Score 2 04/29/2019 [facility] of Occupat ional Health - Occupational Stress [...] [facility] place to live 05/23/2024 Education Answer Date Recorded What is the highest level of school you have completed or the highest degree you have received? Associate degree: academic program 02/12/2019 Comments No Sex and Gender Information Value Date Recorded Sex Assigned at Female 05/07/2023 12:13 PM HEALTH INFORMATICS SPECIALIST Legal Sex Female 3:09 AM HEALTH INFORMATICS SPECIALIST Gender Identity Female 07/20/2019 7:51 PM CDT [...] the patient can call us back at [phone] or someone will try and call again [...] Virtual Visit Division of Pulmonary Medicine in [address] [place] [phone] Anum Jacobson APRN, C.N.P., D.N.P. [address] [place] [phone] 07/03/2024 2:00 PM CDT Tele[facility]icine Center [facility] in [address] [place] [phone] Baylee Pike M.D. [address] [place] [phone] documented as of this encounter Visit Diagnoses Not on filedocumented in this encounter Additional Health Concerns Assessment Noted Time PHQ-9 Depression Total Score: 6 04/29/19 20 12:40 PM HEALTH INFORMATICS SPECIALIST documented as of this encounter Care Teams Office Support Clerk Relationship Specialty Start Date End Date Elsewhere, Pcp PCP - General Internal Medicine 04/24/23 documented as of this encounter
--- OUTSIDE RECORDS SUMMARY | 2024-06-28 08:51 | XMS_ITS | Encounter Summary ---
Author Organization [facility] Address [address] [place] [address] Care Team Providers Care Orthopedic Nurse Practitioner Name Role Phone Elsewhere, Pcp Primary Care Provider Unavailabl e Encounter Details Date Type Department Care Team (Latest Contact Info) Description 05/29/2024 12:11 PM CDT - 05/29/2024 12:41 PM CDT Hospital Encounter Department of Laboratory Medicine and Pathology, [facility], in [place], [place] [address] [place] [phone] Chuck Townsend M.D., Ph.D. [address] [place] [phone] Atherosclerotic Heart Disease [place] Coronary Artery With Other Forms Angina Pectoris [...] e alcohol) Very very rarely [facility] Utilities Answer Date Recorded In [...] Never 07/20/2019 How often do you attend congregational or sikh serv ices? Never 07/20/2019 Active [...] Answer Date Recorded PHQ-2 Score 2 04/29/2019 [facility] of Occupat ional Health - [...] [facility] place to live 05/23/2024 Education Answer Date Recorded What is the highest level of school you have completed or the highest degree you have received? Associate degree: academic program 02/12/2019 Comments No Sex and Gender Information Value Date Recorded Sex Assigned at Female 05/07/2023 12:13 PM BOTTOMER OPERATOR Legal Sex Female 3:09 AM BOTTOMER OPERATOR Gender Identity Female 07/20/2019 7:51 PM [...] Virtual Visit Division of Pulmonary Medicine in [place], [place] [address] [place] [phone] Anum Jacobson, AMEENA, C.N.P., D.N.P. [address] [place] [phone] 07/03/2024 2:00 PM CDT [facility] in [place], [place] [address] [place] [phone] Baylee Pike M.D. [address] [place] [phone] documented as of this encounter Procedures Procedure Name Priority Date/Time Associated Diagnosis Comments NT-PRO B-TYPE NATRIURETIC PEPTIDE (BNP), S Routine 05/29/2024 12:28 PM CDT Atherosclerotic Heart Disease [place] Coronary Artery With Other Forms Angina Pectoris (Stable Angina/Angina Of Exertion) Hypertension Essential Primary Edema Pitting Dyspnea On Exertion BASIC METABOLIC PANEL, S/P Routine 05/29/2024 12:28 PM CDT Atherosclerotic Heart Disease [place] Coronary Artery With Other Forms Angina Pectoris [...] Ph.D. LAB BLOOD ADD-ON Fi nal Result [facility] [place] [address] [place] [address], [place] [facility] [address] [place] [address] * Basic Metabolic Panel (05/29/2024 12:28 PM [...] LAB BLOOD ADD-ON Fi nal Result [facility] [address] [place] [address], [facility] [address] [place] [address] documented in this encounter Visit Diagnoses Diagnosis Atherosclerotic Heart Disease [place] Coronary Artery With Other Forms Angina Pectoris (Stable Angina/Angina Of Exertion) Hypertension Essential Primary Edema Pitting Dyspnea On Exertion documented in this encounter Additional Health Concerns Assessment Noted Time PHQ-9 Depression Total Score: 6 04/29/19 20 12:40 PM BOTTOMER OPERATOR documented as of this encounter Care Teams Orthopedic Nurse Practitioner Relationship Specialty Start Date End Date Elsewhere, Pcp PCP - General Internal Medicine 04/24/23 documented as of this encounter
--- OUTSIDE RECORDS SUMMARY | 2024-06-28 08:51 | XMS_ITS | Clinical Summary ---
Author Organization [facility] Address [address] [place] [address] Care Team Providers Care Drying Equipment Operator Name Role Phone Elsewhere, Pcp Primary Care Provider Unavailabl e Source Comments Patient records contain information from all sites at [facility]. For routine questions regarding patient records, call [phone] during business hours, M-F 8:00 AM - 5:00 PM Central Time. Record requests for emergency care only can be directed to [phone] at any time.[facility] Allergies Active Allergy Reactions Criticality Noted [...] Smoking Cessation 04/26/2023 Atherosclerotic Heart Diseas e [place] Coronary Artery With Other Forms Angina Pectoris [...] Plastic and Reconstructive Surgery 06/13/2024 Results Follow-Up [address] [phone] Anum Carroll, [place] Upper Extremity Arteries Right 06/12/2024 9:58 PM CDT - 06/13/2024 4:15 AM CDT Emergency [facility] Emergency Department [address] [place] [phone] Leonardo Jones M.D. Unspecified Injury Radial Artery Forearm Level Right Initial (Primary Dx); Pain Postoperative Discharge Disposition: Home or Self Care 06/12/2024 Clinical Communication Department of Cardiovascular Medicine in [place], [place] [address] [place] [address] Sarah Milligan cardiac rehabilitation discussion 06/12/2024 Orders Only Department of Cardiovascular Medicine in [place], [place] [address] [place] [address] Chuck Townsend M.D., Ph.D. Atherosclerotic Heart Disease [place] Coronary Artery With Other Forms Angina Pectoris (Stable Angina/Angina Of Exertion) (Primary Dx); Dyspnea On Exertion 06/12/2024 Results Follow-Up Department of Cardiovascular Medicine in [place], [place] [address] [place] [address] Chuck Townsend M.D., Ph.D. Cardiac Catheterization 06/04/2024 12:50 PM CDT - 06/04/2024 3:20 PM CDT Surgery Division of Cardiovascular Diseases in [place], [place] [address] [place] [phone] Ignacio Vail M.D., Ph.D. Coronary Angiography 06/04/2024 10:52 AM CDT - 06/04/2024 4:53 PM CDT Hospital Encounter Division of Cardiovascular Diseases in [address] [phone] Fuentes Stuart M.D. Atherosclerotic Heart Disease [place] Coronary Artery With Other Forms Angina Pectoris (Stable Angina/Angina Of Exertion); Hypertension Essential Primary; Edema Pitting; Dyspnea On Exertion Discharge Disposition: Home or Self Care 06/03/2024 11:30 AM CDT Office Visit Division of Pulmonary Medicine in [place], [place] [address] [place] [address] Anum Jacobson, TURNTABLE ENGINEER, C.N.P., D.N.P. Chronic Obstructive Pulmonary Disease (HCC) (Primary Dx); Smoking Tobacco Use Personal History; Obstructive Sleep Apnea Adult; Body Mass Index 40.0 To 44.9 Adult (HCC); Edema 06/03/2024 11:00 AM CDT Virtual Visit Department of Cardiovascular Medicine in [place], [place] [address] [place] [phone] Chuck Townsend M.D., Ph.D. Phoebe Hawley, RTejas Atherosclerotic Heart Disease [place] Coronary Artery With Other Forms Angina Pectoris (Stable Angina/Angina Of Exertion) (Primary Dx); Hypertension Essential Primary; Edema Pitting; Dyspnea On Exertion 05/31/2024 Results Follow-Up Department of Vascular Medicine in [place], [place] [address] [place] [address] Chuck Townsend M.D., Ph.D. Basic Metabolic Panel, NT-Pro B-Type Natriuretic Peptide (BNP) 05/31/2024 Results Follow-Up Department of Vascular Medicine in [place], [place] [address] [place] [address] Chuck Townsend M.D., Ph.D. ECG 12 Lead 05/29/2024 12:42 PM CDT - 05/29/2024 11:59 PM CDT Hospital Encounter Department of Radiology, [facility] in [place], [place] [address] [place] [address] Chuck Townsend M.D., Ph.D. Atherosclerotic Heart Disease [place] Coronary Artery With Other Forms Angina Pectoris (Stable Angina/Angina Of Exertion); Hypertension Essential Primary; Edema Pitting; Dyspnea On Exertion Discharge Disposition: Home or Self Care 05/29/2024 12:11 PM CDT - 05/29/2024 12:41 PM CDT Hospital Encounter Department of Laboratory Medicine and Pathology, [facility] in [place], [place] [address] [place] [address] Chuck Townsend M.D., Ph.D. Atherosclerotic Heart Disease [place] Coronary Artery With Other Forms Angina Pectoris (Stable Angina/Angina Of Exertion); Hypertension Essential Primary; Edema Pitting; Dyspnea On Exertion Discharge Disposition: Home or Self Care 05/29/2024 11:15 AM CDT Office Visit Department of Cardiovascular Medicine in [place], [place] [address] [place] [address] Chuck Townsend M.D., Ph.D. Atherosclerotic Heart Disease [place] Coronary Artery With Other Forms Angina Pectoris [...] very rarely [facility] [employer] Answer Date Recorded In the past 12 months has e [employer], gas, oil, or water [employer] threatened to shut off services in your [...] How often do you attend restorationist or buddhism serv ices? Never 07/20/2019 Active [...] Answer Date Recorded PHQ-2 Score 2 04/29/2019 [facility] of Occupat ional Health - Occupational [...] Sex Assigned at Female 05/07/2023 12:13 PM REGIONAL FACILITIES SPECIALIST Legal Sex Female 3:09 AM REGIONAL FACILITIES SPECIALIST Gender Identity Female 07/20/2019 7:51 PM [...] Virtual Visit Division of Pulmonary Medicine in [place], [place] [address] [place] [phone] Anum Jacobson, AMEENA, C.N.P., D.N.P. [address] [place] [phone] 07/03/2024 2:00 PM CDT Telemedicine Center for [facility] in [place], [place] [address] [place] [phone] Baylee Pike M.D. [address] [place] [phone] Health Maintenance Due Date Last Done Comments [...] 06/04/2024 2:23 PM CDT Atherosclerotic Heart Disease [place] Coronary Artery With Other Forms Angina Pectoris (Stable Angina/Angina Of Exertion) Hypertension Essential Primary Edema Pitting Dyspnea On Exertion CARDIAC CATHETERIZATION Routine 06/04/2024 2:23 PM CDT Atherosclerotic Heart Disease [place] Coronary Artery With Other Forms Angina Pectoris (Stable Angina/Angina Of Exertion) Hypertension Essential Primary Edema Pitting Dyspnea On Exertion CBC WITHOUT DIFFERENTIAL, B STAT 06/04/2024 12:27 PM CDT ECG Routine 05/29/2024 1:58 PM CDT Atherosclerotic Heart Disease [place] Coronary Artery With Other Forms Angina Pectoris (Stable Angina/Angina Of Exertion) Hypertension Essential Primary Edema Pitting Dyspnea On Exertion DX CHEST AP OR PA AND LATERAL 2 VIEWS RAD - Routine (most inpatients and all outpatients) 05/29/2024 1:01 PM CDT Atherosclerotic Heart Disease [place] Coronary Artery With Other Forms Angina Pectoris (Stable Angina/Angina Of Exertion) Hypertension Essential Primary Edema Pitting Dyspnea On Exertion NT-PRO B-TYPE NATRIURETIC PEPTIDE (BNP), S Routine 05/29/2024 12:28 PM CDT Atherosclerotic Heart Disease [place] Coronary Artery With Other Forms Angina Pectoris (Stable Angina/Angina Of Exertion) Hypertension Essential Primary Edema Pitting Dyspnea On Exertion BASIC METABOLIC PANEL, S/P Routine 05/29/2024 12:28 PM CDT Atherosclerotic Heart Disease [place] Coronary Artery With Other Forms Angina Pectoris [...] and management can be found on the [employer] site. Link [email or web address] Procedure Note Maksim Montoya M.D. - 06/13/2024 EXAM: US UPPER EXTREMITY VEINS RIGHT Exam performed with color and spectral Doppler analysis. COMPARISON: None. FINDINGS: RIGHT: Internal Jugular Vein: Negative. Innominate Vein: Negative. Subclavian Vein: Negative. Axillary Vein: Negative. Brachial Veins: Negative. Cephalic Vein: Negative. Basilic Vein: Negative. Information on venous thrombosis and management can be found on the[employer] site. [email or web address] IMPRESSION: Negative for acute DVT [...] M.D. LAB BLOOD ADD-ON Fi nal Result [facility] [address] [place] [address], [place] DTL [facility] [address] [place] [address] * (ABNORMAL) CBC with Differential, Blood (06/13/2024 [...] AM CDT 06/13/2024 12:57 AM CDT Leonardo Joens M.D. LAB BLOOD ADD-ON Fi nal Result [facility] [place] [address] [facility] [address] [place] [address] * (ABNORMAL) CRP (C-Reactive Protein) (06/13/2024 12:53 AM CDT) C-Reactive Protein (CRP), S 5.3(H) <5.0 mg/L 06/13/2024 2:09 AM CDT DTL Blood (Blood, Venous) 06/13/2024 12:53 AM CDT 06/13/2024 1:45 AM CDT Leonardo Jones M.D. LAB BLOOD ADD-ON Fi nal Result Performing Organization Address City/[facility]/ZIP Co de Phone Number [facility] [place] [address] [place] [address] * CK (Creatine Kinase) (06/13/2024 12:53 AM CDT) Creatine Kinase (CK), S 89 26 - 192 U/L 06/13/2024 2:09 AM CDT DTL Blood (Blood, Venous) 06/13/2024 12:53 AM CDT 06/13/2024 1:45 AM CDT Leonardo Jones M.D. LAB BLOOD ADD-ON Fi nal Result [facility] [place] [address] [place] [address], [facility] [address] [place] [address] * Basic Metabolic Panel (06/13/2024 12:53 AM [...] M.D. LAB BLOOD ADD-ON Fi nal Result [facility] [place] [address] [place] [address], [facility] [address] [place] [address] * RIGHT HEART CATHETERIZATION, CORONARY ANGIOGRAPHY (06/04/2024 2:23 PM CDT) Anatomical Region Laterality Modality X-Ray Angiograph y 06/04/2024 1:28 PM CDT Narrative 06/04/2024 4:23 PM CDT For the complete report, see the Order-Level Documents. PROCEDURE TYPES 1. HEART CATHETERIZATION - RIGHT 2. CORONARY ANGIOGRAPHY FINAL DIAGNOSIS 1. Mild pulmonary hypertension 2. Severe coronary artery atherosclerosis PRE-PROCEDURE DIAGNOSIS 1. Atherosclerotic Heart Disease [place] Coronary Artery With Other Forms Angina Pectoris [...] atherosclerosis PRE-PROCEDURE DIAGNOSIS 1. Atherosclerotic Heart Disease [place] Coronary Artery With Other FormsAngina Pectoris (Stable [...] Ph.D. LAB BLOOD ADD-ON F inal Result [facility] [place] [address] [place] [address], [facility] [address] [place] [address] * ECG 12 Lead (05/29/2024 1:58 PM CDT) Ventricular Rate ECG/Min 79 BPM MUSE GA Interval 150 ms MUSE QRSD Interval 86 ms MUSE QT Interval 376 ms MUSE QTC Interval 431 ms MUSE P [place] 60 degrees MUSE R [place] 71 degrees MUSE T Wave [place] 64 degrees MUSE 05/29/2024 1:58 PM CDT [...] Peptide (BNP) (05/29/2024 12:28 PM CDT) Pathologist [facility] NT-Pro BNP 62 <=226 pg/mL [...] LAB BLOOD ADD-ON Fi nal Result [facility] [place] [address] [place] [address], [facility] [address] [place] [address] * Lipid Panel (07/05/2023 9:54 AM CDT) [facility] Triglycerides 68 mg/dL 07/05/2023 10:52 AM [...] D.O. LAB BLOOD ADD-ON Final Re sult [facility] [place] [address] [place] [address], [facility] [address] [place] [address] * CT Chest without IV Contrast (05/22/2023 [...] Most Recently Relevant to Health Maintenance Insurance [facility] Advance Directives For more information, please contact: [phone] * Full Code (Latest Code Status on File) Date Activated Date Inactivated Comments 04/24/2023 5:03 AM 04/26/2023 3:35 PM Question Answer Comments Full Code: Discussed * Full Code Date Activated Date Inactivated Comments 01/04/2019 11:20 PM 01/05/2019 7:41 PM Question Answer Comments Full Code: Discussed Care Teams Drying Equipment Operator Relationship Specialty Start Date End Date Elsewhere, Pcp PCP - General Internal Medicine 04/24/23
--- OUTSIDE RECORDS SUMMARY | 2024-06-28 08:51 | XMS_ITS | Encounter Summary ---
Author Organization [facility] Address [address] [place] [address] Care Team Providers Care Locker Operator Name Role Phone Elsewhere, Pcp Primary Care Provider Unavailabl e Encounter Details Date Type Department Care Team (Late st Contact Info) Description 05/31/2024 Results Follow-Up Department of Vascular Medicine in [place], [place] [address] [place] [address] Chuck Townsend M.D., Ph.D. [address] [place] [phone] Basic Metabolic Panel, NT-Pro B-Type Natriuretic Peptide (BNP) Social History Tobacco Use Types Packs/Day Years Used Date Smoking Tobacco: Former Cigarettes 1 49.1 0 03/14/1974 - 04/24/2023 Smokeless Tobacco: Never Alcohol Use Standard Drinks/Week Comments Yes 0 (1 standard drink = 0.6 oz pur e alcohol) Very very rarely [facility] Utilities Answer Date Recorded In [...] How often do you attend baptism or judaism serv ices? Never 07/20/2019 Active Member of [...] Answer Date Recorded PHQ-2 Score 2 04/29/2019 [facility] of Occupat ional Health - [...] your living situation today? I have a [facility] place to live 05/23/2024 Education Answer Date Recorded What is the highest level of school you have completed or the highest degree you have received? Associate degree: academic program 02/12/2019 Comments No Sex and Gender Information Value Date Recorded Sex Assigned at Female 05/07/2023 12:13 PM BENEFITS REPRESENTATIVE Legal Sex Female 3:09 AM BENEFITS REPRESENTATIVE Gender Identity Female 07/20/2019 7:51 PM CDT Sexual Orientation Straight 07/20/2019 7: 51 PM CDT documented as of this encounter Plan of Treatment Upcoming Encounters Date Type Department Care Team (Late st Contact Info) Description 06/28/2024 3:00 PM CDT Virtual Visit Division of Pulmonary Medicine in [place], [place] [address] [place] [phone] Anum Jacobson APRN, C.N.P., D.N.P. [address] [place] [phone] 07/03/2024 2:00 PM CDT Telemedicine Center for Sleep Medicine in [place], [place] [address] [place] [phone] Baylee Pike M.D. [address] [place] [phone] documented as of this encounter Visit Diagnoses Not on filedocumented in this encounter Additional Health Concerns Assessment Noted Time PHQ-9 Depression Total Score: 6 04/29/19 20 12:40 PM BENEFITS REPRESENTATIVE documented as of this encounter Care Teams Locker Operator Relationship Specialty Start Date End Date Elsewhere, Pcp PCP - General Internal Medicine 04/24/23 documented as of this encounter
--- OUTSIDE RECORDS SUMMARY | 2024-06-28 08:51 | XMS_ITS | Encounter Summary ---
Author Organization [facility] Address [address] [place] [address] Care Team Providers Care Industrial Hire Sales Assistant Name Role Phone Elsewhere, Pcp Primary Care Provider Unavailabl e Encounter Details Date Type Department Care Team (Late st Contact Info) Description 05/31/2024 Results Follow-Up Department of Vascular Medicine in [place], [place] [address] [place] [address] Chuck Townsend M.D., Ph.D. [address] [place] [phone] ECG 12 Lead Social History Tobacco Use Types Packs/Day Years Used Date Smoking Tobacco: Former Cigarettes 1 49.1 0 03/14/1974 - 04/24/2023 Smokeless Tobacco: Never Alcohol Use Standard Drinks/Week Comments Yes 0 (1 standard drink = 0.6 oz pur e alcohol) Very very rarely [facility] Utilities Answer Date Recorded In the [...] How often do you attend congregation or hindu serv ices? Never 07/20/2019 Active Member of [...] Answer Date Recorded PHQ-2 Score 2 04/29/2019 [facility] of Occupat ional Health - [...] Sex Assigned at Female 05/07/2023 12:13 PM STOVE CLEANER Legal Sex Female 3:09 AM STOVE CLEANER Gender Identity Female 07/20/2019 7:51 PM CDT Sexual Orientation Straight 07/20/2019 7: 51 PM CDT documented as of this encounter Plan of Treatment Upcoming Encounters Date Type Department Care Team (Late st Contact Info) Description 06/28/2024 3:00 PM CDT Virtual Visit Division of Pulmonary Medicine in [place], [place] [address] [place] [phone] Anum Jacobson, AMEENA, C.N.P., D.N.P. [address] [place] [phone] 07/03/2024 2:00 PM CDT Telemedicine Center [facility] in [place], [place] [address] [place] [phone] Baylee Pike M.D. [address] [place] [phone] documented as of this encounter Visit Diagnoses Not on filedocumented in this encounter Additional Health Concerns Assessment Noted Time PHQ-9 Depression Total Score: 6 04/29/19 20 12:40 PM STOVE CLEANER documented as of this encounter Care Teams Industrial Hire Sales Assistant Relationship Specialty Start Date End Date Elsewhere, Pcp PCP - General Internal Medicine 04/24/23 documented as of this encounter
--- OUTSIDE RECORDS SUMMARY | 2024-06-28 08:51 | XMS_ITS | Encounter Summary ---
Author Organization [facility] Address [address] [place] [address] Care Team Providers Care Client Architect Name Role Phone Elsewhere, Pcp Primary Care Provider Unavailabl e Reason for Referral * Outpatient (Routine) - Authorized Specialty Diagnoses / Procedures Referred By Carey escobar Referred To Contact Pulmonary Medicine Diagnoses Chronic Obstructive Pulmonary Disease (HCC) Anum Jacobson APRN, C.N.P., D.N.P. [address] [place] [address] Phone: tel: fax: [facility] Referral ID Status Reason Start Date Expiration Date V isits Requested Visits Authorized [id number] Authorized 06/03/2024 12/03/2025 1 1 Reason for Visit * Outpatient (Routine) - Closed Specialty Diagnoses / Procedures Referred By Contmayela t Referred To Contact Pulmonary Medicine Diagnoses Chronic Obstructive Pulmonary Disease (HCC) Anum Jacobson APRN, C.N.P., D.N.P. [address] [place] [address] Phone: tel: fax: [facility] Referral ID Status Reason Start Date Expiration Date Visits Re quested Visits Authorized [id number] Closed 11/27/2023 05/28/2025 1 1 Encounter Details Date Type Department Care Team (Late st Contact Info) Description 06/03/2024 11:30 AM CDT Office Visit Division of Pulmonary Medicine in [place], [place] [address] [place] [address] Anum Jacobson APRN, C.N.P., D.N.P. [address] [place] [address] Chronic Obstructive Pulmonary Disease (HCC) (Primary Dx); [...] oz pur e alcohol) Very very rarely [facility] Utilities Answer Date Recorded In the past 12 months has e electric, gas, oil, or water [employer] threatened to shut off services in your [...] Never 07/20/2019 How often do you attend mormonism or episcopalian serv ices? 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 She is scheduled to [...] Virtual Visit Division of Pulmonary Medicine in [place], [place] [address] [place] [phone] Anum Jacobson APRN, C.N.P., D.N.P. [address] [place] [phone] 07/03/2024 2:00 PM CDT Telemedicine Center for Sleep Medicine in [place], [place] [address] [place] [phone] Baylee Pike M.D. [address] [place] [phone] Scheduled Orders Name Type Priority Associated Diagnoses [...] Score: 6 04/29/19 20 12:40 PM SUPERVISOR LIQUID YEAST documented as of this encounter Care Teams Client Architect Relationship Specialty Start Date End Date Elsewhere, Pcp PCP - General Internal Medicine 04/24/23 documented as of this encounter
--- OUTSIDE RECORDS SUMMARY | 2024-06-28 08:51 | XMS_ITS | Encounter Summary ---
Author Organization [facility] Address [address] [place] [address] Care Team Providers Care Insole Reinforcer Name Role Phone Elsewhere, Pcp Primary Care Provider Unavailabl e Reason for Referral * Specialty Diagnoses / Procedures Referred By Carey t Referred To Contact Diagnoses Atherosclerotic Heart Disease [place] Coronary Artery With Other Forms Angina Pectoris (Stable Angina/Angina Of Exertion) Hypertension Essential Primary Edema Pitting Dyspnea On Exertion Chuck Townsend M.D., Ph.D. [address] [place] [address] Phone: tel: fax: [facility] Referral ID Status Reason Start Date Expiration Date Visits Re quested Visits Authorized * Outpatient (Routine) - Closed Specialty Diagnoses / Procedures Referred By Carey escobar Referred To Contact Diagnoses Atherosclerotic Heart Disease [place] Coronary Artery With Other Forms Angina Pectoris (Stable Angina/Angina Of Exertion) Hypertension Essential Primary Edema Pitting Dyspnea On Exertion Procedures ECG 12 Lead Chuck Townsend M.D., Ph.D. [address] [place] [address] Phone: tel: fax: [facility] Referral ID Status Reason Start Date Expiration Date Visits Re quested Visits Authorized [id number] Closed 05/29/2024 08/29/2025 1 1 * Outpatient (Routine) - Closed Specialty Diagnoses / Procedures Referred By Contac t Referred To Contact Diagnoses Atherosclerotic Heart Disease [place] Coronary Artery With Other Forms Angina Pectoris (Stable Angina/Angina Of Exertion) Hypertension Essential Primary Edema Pitting Dyspnea On Exertion Procedures DX Chest AP or PA and Lateral 2 Views Chuck Townsend M.D., Ph.D. [address] [place] [phone] Phone: tel: fax: [facility] Referral ID Status Reason Start Date Expiration Date Visits Re quested Visits Authorized [id number] Closed 05/29/2024 08/29/2025 1 1 Reason for Visit * Outpatient (Routine) - Closed Specialty Diagnoses / Procedures Referred By Contac t Referred To Contact Cardiovascular Disease Chuck Townsend M.D., Ph.D. [address] [place] [phone] Phone: tel: fax: [facility] Referral ID Status Reason Start Date Expiration Date Visits Re quested Visits Authorized [id number] Closed 05/07/2024 11/06/2025 1 1 Encounter Details Date Type Department Care Team (Latest Contact Info) Description 05/29/2024 11:15 AM CDT Office Visit Department of Cardiovascular Medicine in [place], [place] [address] [place] [phone] Chuck Townsend M.D., Ph.D. [address] [place] [phone] Atherosclerotic Heart Disease [place] Coronary Artery With Other Forms Angina Pectoris (Stable Angina/Angina Of Exertion) (Primary Dx); Hypertension Essential Primary; Edema Pitting; Dyspnea On Exertion Social History Tobacco Use Types Packs/Day Years Used Date Smoking Tobacco: Former Cigarettes 1 49.1 0 03/14/1974 - 04/24/2023 Smokeless Tobacco: Never Alcohol Use Standard Drinks/Week Comments Yes 0 (1 standard drink = 0.6 oz pur e alcohol) Very very rarely [facility] Utilities Answer Date Recorded In [...] Never 07/20/2019 How often do you attend sikhism or amish serv ices? Never 07/20/2019 Active Member of [...] Answer Date Recorded PHQ-2 Score 2 04/29/2019 [facility] [place] [facility] Occupat [facility] - Occupational Stress [...] Sex Assigned at Female 05/07/2023 12:13 PM PUBLIC INFORMATION COORDINATOR Legal Sex Female 3:09 AM PUBLIC INFORMATION COORDINATOR Gender Identity Female 07/20/2019 7:51 PM [...] Echocardiogram (TTE) Last performed: 04/29/[address] [facility]; report available but [...] concerning for angina. #1 Atherosclerotic Heart Disease [place] Coronary Artery With Other Forms Angina Pectoris [...] definitive answers is to proceed to the flower shop laborer/designer. When I saw her a year ago [...] exercise, but I will defer to the Ash Worker team in terms of the safety and/or optimal order for these tests. PLAN Testing today after visit to include 12-lead ECG, BMP, NT pro-BNP, and chest x ray cath lab radiology technician study ordered for next week Right heart cath with exercise Coronary angiography +/- intervention as indicated Patient was reviewed with product safety consultant Dr. Ruben Stuart, who agrees with the assessment and plan as detailed above. I have listed him as the counter person for the flower shop laborer/designer, as I will be away next week. [...] Virtual Visit Division of Pulmonary Medicine in [place], [place] [address] [place] [phone] Anum Jacobson, AMEENA, C.N.P., D.N.P. [address] [place] [phone] 07/03/2024 2:00 PM CDT Telemedicine [facility] in [place], [place] [address] [place] [phone] Baylee Pike M.D. [address] [place] [phone] Scheduled Referrals Name Type Priority Associated Diagnoses Order Schedule Cardiovascular Disease - Education visit (clinic) Outpatient Referral Routine Atherosclerotic Heart Disease [place] Coronary Artery With Other Forms Angina Pectoris (Stable Angina/Angina Of Exertion) (HCC) Hypertension Essential Primary Edema Pitting Dyspnea On Exertion Expected: 05/29/2024, Expires: 08/29/2025 documented as of this encounter Results * ECG 12 Lead (05/29/2024 1:58 PM CDT) Ventricular Rate ECG/Min 79 BPM MUSE SD Interval 150 ms MUSE QRSD Interval 86 ms MUSE QT Interval 376 ms MUSE QTC Interval 431 ms MUSE P [place] 60 degrees MUSE R [place] 71 degrees MUSE T Wave [place] 64 degrees MUSE 05/29/2024 1:58 PM CDT [...] Ph.D. LAB BLOOD ADD-ON Fi nal Result [facility] [address] [place] [address], [facility] DTL [facility] [address] [place] [address] * Basic Metabolic Panel (05/29/2024 12:28 PM [...] Ph.D. LAB BLOOD ADD-ON Fi nal Result [facility] [address] [place] [address], [place] DTL [facility] [address] [place] [address] documented in this encounter Visit Diagnoses Diagnosis Atherosclerotic Heart Disease [place] Coronary Artery With Other Forms Angina Pectoris (Stable Angina/Angina Of Exertion)- Primary Hypertension Essential Primary Edema Pitting Dyspnea On Exertion Atherosclerotic Heart Disease [place] Coronary Artery With Other Forms Angina Pectoris (Stable Angina/Angina Of Exertion) Hypertension Essential Primary Edema Pitting Dyspnea On Exertion documented in this encounter Additional Health Concerns Assessment Noted Time PHQ-9 Depression Total Score: 6 04/29/19 20 12:40 PM PUBLIC INFORMATION COORDINATOR documented as of this encounter Care Teams Insole Reinforcer Relationship Specialty Start Date End Date Elsewhere, Pcp PCP - General Internal Medicine 04/24/23 documented as of this encounter
--- OUTSIDE RECORDS SUMMARY | 2024-06-28 08:52 | XMS_ITS | Encounter Summary ---
Author Organization [facility] Address [address] [place] [address] Care Team Providers Care Health Technical Writer Name Role Phone Elsewhere, Pcp Primary Care Provider Unavailabl e Reason for Referral * Outpatient (Routine) - Closed Specialty Diagnoses / Procedures Referred By Carey escobar Referred To Contact Diagnoses Atherosclerotic Heart Disease [place] Coronary Artery With Other Forms Angina Pectoris (Stable Angina/Angina Of Exertion) Hypertension Essential Primary Edema Pitting Dyspnea On Exertion Procedures DX Chest AP or PA and Lateral 2 Views Chuck Townsend [place]., [place] [phone] Phone: tel: fax: [facility] Referral ID Status Reason Start Date Expiration Date Visits Re quested Visits Authorized [id number] Closed 05/29/2024 08/29/2025 1 1 Reason for Visit * Outpatient (Routine) - Closed Specialty Diagnoses / Procedures Referred By Carey escobar Referred To Contact Diagnoses Atherosclerotic Heart Disease [place] Coronary Artery With Other Forms Angina Pectoris (Stable Angina/Angina Of Exertion) Hypertension Essential Primary Edema Pitting Dyspnea On Exertion Procedures DX Chest AP or PA and Lateral 2 Views Chuck Townsend M.D., Ph.D. [address] [place] [phone] Phone: tel: fax: [facility] Referral ID Status Reason Start Date Expiration Date Visits Re quested Visits Authorized [id number] Closed 05/29/2024 08/29/2025 1 1 Encounter Details Date Type Department Care Team (Latest Contact Info) Description 05/29/2024 12:42 PM CDT - 05/29/2024 11:59 PM CDT Hospital Encounter Department of Radiology, [facility] in [place], [place] [address] [place] [phone] Chuck Townsend M.D., Ph.D. [address] [place] [phone] Atherosclerotic Heart Disease [place] Coronary Artery With Other Forms Angina Pectoris [...] In the past 12 months has e [employer], gas, oil, or water [employer] threatened to shut off services in your [...] How often do you attend voodoo or cheondoism serv ices? Never 07/20/2019 Active [...] Date Recorded PHQ-2 Score 2 04/29/2019 [facility] - Occupational Stress Questionnaire Answer Date [...] Sex Assigned at Female 05/07/2023 12:13 PM CLOCK ASSEMBLER Legal Sex Female 3:09 AM CLOCK ASSEMBLER Gender Identity Female 07/20/2019 7:51 PM CDT [...] Virtual Visit Division of Pulmonary Medicine in [place], [place] [address] [place] [phone] Anum Jacobson, AMEENA, C.N.P., D.N.P. [address] [place] [phone] 07/03/2024 2:00 PM CDT [facility] in [place], [place] [address] [place] [phone] Baylee Pike M.D. [address] [place] [phone] documented as of this encounter Procedures Procedure Name Priority Date/Time Associated Diagnosis Comments DX CHEST AP OR PA AND LATERAL 2 VIEWS RAD - Routine (most inpatients and all outpatients) 05/29/2024 1:01 PM CDT Atherosclerotic Heart Disease [place] Coronary Artery With Other Forms Angina Pectoris [...] encounter Visit Diagnoses Diagnosis Atherosclerotic Heart Disease [place] Coronary Artery With Other Forms Angina Pectoris (Stable Angina/Angina Of Exertion) Hypertension Essential Primary Edema Pitting Dyspnea On Exertion documented in this encounter Additional Health Concerns Assessment Noted Time PHQ-9 Depression Total Score: 6 04/29/19 20 12:40 PM CLOCK ASSEMBLER documented as of this encounter Care Teams Health Technical Writer Relationship Specialty Start Date End Date Elsewhere, Pcp PCP - General Internal Medicine 04/24/23 documented as of this encounter
== END 2024-06-28 08:50 | disposition home or self-care (01) ==
LOC: ED 08:47
PROVIDERS: Emergency Provider Internal Medicine; PCP Internal Medicine
DX: M79.641 Pain in right hand (principal); M79.642 Pain in left hand
CPT/HCPCS: 99283

== ENCOUNTER 2024-08-07 08:31 | Outpatient (CLI) | payer OTHER, SELFPAY | END 2024-08-07 08:32 | disposition home or self-care (01) | LOC: NFLDREF 08-09 21:39 | PROVIDERS: PCP Internal Medicine; Referring Provider Internal Medicine; Visit Provider Internal Medicine | DX: R60.0 Localized edema (principal); I10 Essential (primary) hypertension; R82.90 Unspecified abnormal findings in urine | CPT/HCPCS: 81404; 83520; 83880; 84156; 84443; 86038; 86140; 86334; 86335; 87086 ==

== ENCOUNTER 2024-09-12 07:42 | Emergency (ER) | payer OTHER, SELFPAY ==
--- OUTSIDE RECORDS SUMMARY | 2024-07-30 07:45 | XMS_ITS | Encounter Summary ---
Author Organization [facility] Address [address] [place] [address] Care Team Providers Care Historical Society Director Name Role Phone Elsewhere, Pcp Primary Care Provider Unavailabl e Reason for Referral * Outpatient (Routine) - Authorized Specialty Diagnoses / Procedures Referred By Contact Referred To Contact Cardiovascular Diseases / Cardiovascular Disease Diagnoses Atherosclerotic Heart Disease [place] Coronary Artery With Other Forms Angina Pectoris (Stable Angina/Angina Of Exertion) Al Villalpando M.D., M.S. [address] [place] [address] Phone: tel: fax: [facility] Referral ID Status Reason Start Date Expiration Date V isits Requested Visits Authorized [id number] Authorized 07/30/2024 01/29/2026 1 1 Scheduling Instructions Prefers in person * Outpatient (Routine) - Closed Specialty Diagnoses / Procedures Referred By Contact Referred To Contact Cardiovascular Diseases / Cardiovascular Disease Diagnoses Angina Pectoris Tobacco User Atherosclerotic Heart Disease [place] Coronary Artery With Other Forms Angina Pectoris (Stable Angina/Angina Of Exertion) Shortness Of Breath Chuck Townsend M.D., Ph.D. [address] [place] [phone] Phone: tel: fax: [facility] Referral ID Status Reason Start Date Expiration Date Visits Re quested Visits Authorized [id number] Closed 07/17/2024 01/16/2026 1 1 Reason for Visit * Outpatient (Routine) - Closed Specialty Diagnoses / Procedures Referred By Contact Referred To Contact Cardiovascular Diseases / Cardiovascular Disease Diagnoses Angina Pectoris Tobacco User Atherosclerotic Heart Disease [place] Coronary Artery With Other Forms Angina Pectoris (Stable Angina/Angina Of Exertion) Shortness Of Breath Chuck Townsend M.D., Ph.D. [address] [place] [phone] Phone: tel: fax: [facility] Referral ID Status Reason Start Date Expiration Date Visits Re quested Visits Authorized [id number] Closed 07/17/2024 01/16/2026 1 1 Encounter Details Date Type Department Care Team (Latest Contact Info) Description 07/30/2024 7:45 AM CDT - 07/30/2024 11:59 PM CDT Hospital Encounter Department of Cardiac Rehabilitation in [place], [place] [address] [place] [phone] Chuck Townsend M.D., Ph.D. [address] [place] [phone] Angina Pectoris Tobacco User; Atherosclerotic Heart Disease [place] Coronary Artery With Other Forms Angina Pectoris (Stable Angina/Angina Of Exertion); Shortness Of Breath Discharge Disposition: Home or Self Care Social History Tobacco Use Types Packs/Day Years Used Date Smoking Tobacco: Former Cigarettes 1 48.1 0 03/14/1975 - 04/24/2023 Smokeless Tobacco: Never Alcohol Use Standard Drinks/Week Comments Yes 0 (1 standard drink = 0.6 oz pur e alcohol) Very very rarely [facility] Utilities Answer Date Recorded In the past 12 months has [employer], gas, oil, or water [employer] threatened to shut off services in your [...] by your partner or ex-partner? No 04/24/2023 Hunger Vital Sign Answer Date Recorded Within [...] PHQ-9 Total Score (max 27) 6 04/29 Housing Stability Answer Date Recorded What is your living situation today? I have a [facility] place to live 05/23/2024 Education Answer Date Recorded What is the highest level of school you have completed or the highest degree you have received? Associate degree: academic program 02/12/2019 Comments No Sex and Gender Information Value Date Recorded Sex Assigned at Female 05/07/2023 12:13 PM TOOL REPAIR TECHNICIAN Legal Sex Female 3:09 AM TOOL REPAIR TECHNICIAN Gender Identity Female 07/20/2019 7:51 PM CDT Sexual Orientation Straight 07/20/2019 7: 51 PM CDT documented as of this encounter Medications at Time of Discharge acetaminophen (TYLENOL) 500 mg tablet Take 1,000 mg by mouth as needed for pain. albuterol 90 mcg/actuation inhalerIndication s:Shortness Of Breath,Chronic Obstructive Pulmonary Disease (HCC) INHALE 2 PUFFS BY MOUTH EVERY 4 HOURS NEEDED FOR WHEEZING AND FOR SHORTNESS OF BREATH 18 g 07/30/2024 aspirin, buffered, 325 mg tablet Take 1 tablet (325 mg total) by mouth daily. 360 tablet 04/06/2019 atorvastatin (LIPITOR) 80 mg tabletIndications :Stroke (HCC) Take 1 tablet (80 mg total) by mouth at bedtime. 90 tablet 3 04/26/2023 azithromycin (Zithromax) 250 mg tablet Take 250 mg by mouth as needed. 06/26/2024 benzonatate (Tessalon Perles) 100 mg capsule Take 100 mg by mouth every 4 (four) hours as needed. 02/24/2022 clopidogreL (Plavix) 75 mg tablet Take 300 mg (4 tablets) the day before the procedure and 75 mg (1 tablet) the morning of the procedure. 5 tablet 06/03/2024 DME CPAPIndications:O bstructive Sleep Apnea Adult DME Order 1 each 02/29/2024 fluocinonide (Lidex) 0.05 % ointment Apply 1 Application topically 2 (two) times a day. 07/25/2024 fluticasone furoate-vilantero L (Breo Ellipta) 100-25 mcg/actuation [...] shortness of breath. 90 mL 11 10/10/2023 metoprolol tartrate (Lopressor) 25 mg tablet Take 1 tablet by mouth 2 (two) times a day. 06/13/2024 nitroglycerin (NITROSTAT) 0.[address] 1 tablet (0.4 mg total) under the tongue every 5 (five) minutes as needed for chest pain. 30 tablet 04/26/2023 predniSONE (Deltasone) 20 mg tablet Take 20 mg by mouth as needed. 06/13/2024 Spiriva Respimat 2.5 mcg/actuation inhalerIndication s:Chronic Obstructive Pulmonary Disease (HCC) INHALE 2 PUFFS BY MOUTH ONCE DAILY 4 g 11 03/18/2024 valsartan (Diovan) 160 mg tablet Take 1 tablet by mouth daily. 09/18/2023 documented as of this encounter Consult Notes * Jessica Morrell CEP - 07/30/2024 7:45 AM CDT Virtual Exercise and Lifestyle Program via the Interactive Care Plan Reason for Visit: Cardiovascular Health Clinic consultation for referral to cardiac rehabilitation or virtual exercise and lifestyle program via the interactive care plan. Participation in a Phase II cardiac rehabilitation program is considered the gold standard treatment after cardiovascular events. Patient was informed about what Cardiac Rehabilitation entails and why it is beneficial. Patient declined cardiac rehab enrollment due to geographic restrictions. Patient came in today to cardiac rehab for her initial session. 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 Provided her with other locations as well, declined. Completed 2 minute step test: 29 total. Patient/family was then offered an option to enroll in the virtual exercise and lifestyle program via the interactive care plan for risk factor management and exercise guidance. Patient/family were provided with progressive verbal and printed home-going exercise guidelines and description/expectations of participating in the interactive care plan. Patient/family understands and agrees with all provided information. Diagnosis: Stable angina Referral: Patient agreed with referral to the interactive care plan through [facility] in [place]. Appointment details can be found on the Patient Appointment Guide. Patient questionnaires sent via patient portal: [facility] QUALITY OF LIFE INDEX QUESTIONNAIRE, DUMONT ACTIVITY STATUS INDEX (DASI) QUESTIONNAIRE, PICTURE YOUR PLATE QUESTIONNAIRE, and STOP-BANG MYCHART QUESTIONNAIRE (Patient completed) Recommended that the patient check with insurance company to verify coverage of the cost of remote program sessions. documented in this encounter Plan of Treatment Upcoming Encounters Date Type Department Care Team (Late st Contact Info) Description 09/23/2024 9:30 AM CDT Telemedicine Department of Cardiovascular Medicine in [place], [place] [address] [place] [phone] Wilda Jaramillo APRN, C.N.P., M.S.N. [address] [place] [phone] 10/22/2024 9:45 AM CDT Appointment Department of Radiology, [facility], in [place], [place] [address] [place] [phone] Rupali Tate M.D. [address] [place] [phone] 12/03/2024 10:00 AM CDT Telemedicine Division of Pulmonary Medicine in [place], [place] [address] [place] [phone] Brad Hoffman M.D. [address] [place] [phone] Scheduled Referrals Name Type Priority Associated Diagnoses Order Schedule Cardiovascular Disease - Cardiac rehabilitation consult (clinic) Outpatient Referral Routine Angina Pectoris Tobacco User Atherosclerotic Heart Disease [place] Coronary Artery With Other Forms Angina Pectoris (Stable Angina/Angina Of Exertion) Shortness Of Breath Once for 1 Occurrences starting 07/30/2024 until 07/30/2024 Cardiovascular Disease - Cardiac rehabilitation consult (clinic) Outpatient Referral Routine Atherosclerotic Heart Disease [place] Coronary Artery With Other Forms Angina Pectoris (Stable Angina/Angina Of Exertion) Expected: 07/30/2024, Expires: 10/30/2025 documented as of this encounter Visit Diagnoses Diagnosis Angina Pectoris Tobacco User Atherosclerotic Heart Disease [place] Coronary Artery With Other Forms Angina Pectoris (Stable Angina/Angina Of Exertion) Shortness Of Breath documented in this encounter Additional Health Concerns Assessment Noted Time PHQ-9 Depression Total Score: 6 04/29/19 20 12:40 PM TOOL REPAIR TECHNICIAN documented as of this encounter Care Teams Historical Society Director Relationship Specialty Start Date End Date Elsewhere, Pcp PCP - General Internal Medicine 04/24/23 documented as of this encounter
--- OUTSIDE RECORDS SUMMARY | 2024-08-27 15:15 | XMS_ITS | Encounter Summary ---
Author Organization [facility] Address [address] [place] [address] Care Team Providers Care Seed District Sales Manager Name Role Phone Elsewhere, Pcp Primary Care Provider Unavailabl e Reason for Referral * Outpatient (Routine) - Closed Specialty Diagnoses / Procedures Referred By Carey escobar Referred To Contact Diagnoses Edema Pitting Procedures US Lower Extremity Venous Insufficiency Bilateral Chuck Townsend M.D., Ph.D. [address] [place] [address] Phone: tel: fax: [facility] Referral ID Status Reason Start Date Expiration Date Visits Re quested Visits Authorized [id number] Closed 08/27/2024 11/27/2025 1 1 Reason for Visit * Outpatient (Routine) - Closed Specialty Diagnoses / Procedures Referred By Carey escobar Referred To Contact Cardiovascular Disease Diagnoses Dyspnea On Exertion Edema Pitting Hypertension Essential Primary Atherosclerotic Heart Disease [place] Coronary Artery With Other Forms Angina Pectoris (Stable Angina/Angina Of Exertion) Hyperlipidemia Fuentes Stuart M.D. [address] [place] [address] Phone: tel: fax:[phone] [facility] Referral ID Status Reason Start Date Expiration Date Visits Re quested Visits Authorized [id number] Closed 06/06/2024 12/06/2025 1 1 Encounter Details Date Type Department Care Team (Latest Contact Info) Description 08/27/2024 3:15 PM CDT Office Visit Department of Cardiovascular Medicine in [place], [place] [address] [place] [address] Chuck Townsend M.D., Ph.D. [address] [place] [address] Edema Lower Extremity (Primary Dx); Dyspnea On Exertion; Edema Pitting; Hypertension Essential Primary; Atherosclerotic Heart Disease [place] Coronary Artery With Other Forms Angina Pectoris (Stable Angina/Angina Of Exertion); Hyperlipidemia Social History Tobacco Use Types Packs/Day Years Used Date Smoking Tobacco: Former Cigarettes 1 48.1 0 03/14/1975 - 04/24/2023 Smokeless Tobacco: Never Alcohol Use Standard Drinks/Week Comments Yes 0 (1 standard drink = 0.6 oz pur e alcohol) Very very rarely [facility] [employer] Answer Date Recorded In the past 12 months has e [employer], gas, oil, or water [employer] threatened to shut off services in your [...] a [facility] place to live 05/23/2024 Education Answer Date Recorded What is the highest level of school you have completed or the highest degree you have received? Associate degree: academic program 02/12/2019 Comments No Sex and Gender Information Value Date Recorded Sex Assigned at Female 05/07/2023 12:13 PM CHIEF CRUISER Legal Sex Female 3:09 AM CHIEF CRUISER Gender Identity Female 07/20/2019 7:51 PM CDT Sexual Orientation Straight 07/20/2019 7: 51 PM CDT documented as of this encounter Last Filed Vital Signs Vital Sign Reading Time Taken Comments Blood Pressure 132/79 08/27/2024 2:59 PM CDT Pulse 76 08/27/2024 2:59 PM CDT Temperature - - Respiratory Rate - - Oxygen Saturation - - Inhaled Oxygen Concentration - - Weight 98.7 kg (217 lb 9.5 oz) 08/27/2024 2:59 P M CDT Height 156.3 cm (5' 1.54) 08/27/2024 2:59 PM CD T Body Mass Index 40.4 08/27/2024 2:59 PM CDT documented in this encounter Patient Instructions * Attachments The following attachments cannot be sent through Care Everywhere. * Lymph Fluid Drainage Massage for Leg Lymphedema documented in this encounter Progress Notes * Chuck Townsend M.D., Ph.D. - 08/27/2024 3:15 PM CDT CARDIOLOGY CLINIC NOTE HISTORY OF PRESENT ILLNESS Mrs. Allison is a 63 y.o. female who presents to outpatient Cardiology Clinic today for evaluationand management of lower extremity edema. Relevant comorbid medical conditions include COPD, CAD with chronic total occlusion of the RCA found in June 2024, possible hypertension, and roughly 50 packyear smoking history with quit date in early 2023. 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 She is working on getting enrolled in virtual cardiac rehab (as she cannot do 3 days a week in person with her work schedule). 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 The swelling seems to be relatively constant throughout the day, although it does probably improve somewhat overnight. They are no necessarily smaller in the morning, but they do feel softer/less firm. She wears compression stockings, especially at work, that provide 15 mmHg compression. As discussed at her last visit, she did a trial of furosemide with her primary at a low dose that did not seem to help with her edema or make her urinate any more than normal. Developed severe pain in right knee yesterday morning that is limiting her ambulation. Denies orthopnea. No changes to urination in terms of volume, frequency, or character of her urine. CARDIOVASCULAR HISTORY Chronic CAD with CONSERVATION OFFICER of right coronary artery but robust collateral filling Exertional dyspnea, progressive in 2023 but stable in 2024 Mild precapillary pulmonary hypertension Lower extremity edema of unclear and likely multifactorial etiology OTHER PAST MEDICAL HISTORY COPD COVID pneumonia in January 2024 Tobacco use, roughly 50 pack year history, quit in early 2023 REVIEW OF SYSTEMS Otherwise negative except as per HPI. OUTPATIENT MEDICATIONS Current Outpatient Medications Medication Instructions acetaminophen (TYLENOL) 1,000 mg, As needed albuterol 90 mcg/actuation inhaler 2 puffs, inhalation, Every 4 hours PRN aspirin, buffered, 325 mg tablet 325 mg, oral, Daily aspirin 324 mg, oral, Once, Take morning of procedure. atorvastatin (LIPITOR) 80 mg, oral, Daily at bedtime azithromycin (ZITHROMAX) 250 mg, As needed benzonatate (TESSALON PERLES) 100 mg, oral, Every 4 hours PRN clopidogreL (Plavix) 75 mg tablet Take 300 mg (4 tablets) the day before the procedure and 75 mg (1tablet) the morning of the procedure. DME CPAP DME Order fluocinonide (Lidex) 0.05 % ointment 1 Application, 2 times daily fluticasone furoate-vilanteroL (Breo Ellipta) 100-25 mcg/actuation inhaler 1 puff, inhalation, Daily ibuprofen 400 mg, As needed ipratropium-albuteroL (DuoNeb) 0.5-2.5 mg/3 mL nebulizer solution 3 mL, nebulization, 4 times dailyPRN metoprolol tartrate (Lopressor) 25 mg tablet 1 tablet, 2 times daily nitroglycerin (NITROSTAT) 0.4 mg, sublingual, Every 5 min PRN predniSONE (DELTASONE) 20 mg, As needed Spiriva Respimat 2.5 mcg/actuation inhaler 2 puffs, inhalation, Daily valsartan (Diovan) 160 mg tablet 1 tablet, Daily SOCIAL HISTORY Roughly 50 pack-year smoking history, quit early 2023 ALLERGIES Allergies Allergen Reactions Penicillins Edema (Reselect Reaction) and Other (see comments) Penicillin injectables ONLY Sulfa (Sulfonamide Antibiotics) Hives (Reselect Reaction) and Hives only, no other systemic symptoms PHYSICAL EXAMINATION BP 132/79 (BP Location: Left arm, Patient Position: Sitting, Cuff Size: Large) Pulse 76 Ht 156.3 cm Wt 98.7 kg BMI 40.40 kg/m?? Wt Readings from Last 1 Encounters: 08/27/24 98.7 kg Body mass index is 40.4 kg/m??. Gen: In no acute distress. HEENT: [...] 1+ pitting edema of bilateral lower extremities superimposed on significant non-pitting edema. Right leg slightly more edematous/tenser than left. Peripheral pulses symmetric and readilypalpable. Extremities are warm and well perfused. No noted varicosities. Neurological: Alert and fully oriented. No obvious focal deficits. Skin: Skin normal color, texture and turgor with no lesions or eruptions. DIAGNOSTICS Transthoracic Echocardiogram (TTE) Last performed: 04/29/24 at [facility]; report available but not images [...] 07/05/2023 ASSESSMENT / PLAN ASSESSMENT / PLAN Mrs. Allison is a 63 y.o. female with a PMH of COPD, hypertension, and coronary artery disease including CONSERVATION OFFICER of the RCA who presented for evaluation of persistent lower extremity edema. #1 Dyspnea On Exertion #2 Edema Pitting #3 Hypertension Essential Primary #4 Atherosclerotic Heart Disease [place] Coronary Artery With Other Forms Angina Pectoris (Stable Angina/Angina Of Exertion) #5 Hyperlipidemia Overall, her symptoms seem largely stable since the last time I saw her. She does have a CONSERVATION OFFICER of theright coronary artery but this is well collateralized and I do not think any of her symptoms suggest angina. She is starting the process to enroll in cardiac rehab to see if this helps with her symptoms. She does have significant lower extremity edema that is not improved since last time. Normal hemodynamics (including RAP 3 mmHg) on her June cath procedure suggest this is not due to heart failure/volume overload, which is further supported by the primarily non-pitting nature of the edema. As such, I do not think diuretic therapy is the proper treatment here. On exam this does mostly suggest lymphedema, although venous insufficiency could also result in high venous pressure in the legs despite normal central venous pressure. We will pursue venous insufficiency ultrasounds to assess for this. If this is negative, we could consider a CT venogram to look for some sort of obstruction/compression of venous drainage in the pelvis/lower abdomen. Alternately,we could pursue lymphedema workup/management with tighter compression stockings and referral to lymphedema clinic, with perhaps consideration of lymphatic imaging in Radiology. PLAN - Continue current medications + cardiac rehab - Lower extremity venous insufficiency ultrasounds - Further edema workup could include CT venogram, lymphedema clinic referral, or lymphatic imaging with Radiology - Next steps to be determined based on ultrasound results I spent a total of 35 minutes [...] CDT Telemedicine Department of Cardiovascular Medicine in [address] [phone] Wilda Jaramillo APRN, C.N.P., M.S.N. [address] [place] [phone] 10/22/2024 9:45 AM CDT Appointment Department of Radiology, [facility], in [place], [place] [address] [place] [phone] Rupali Tate M.D. [address] [place] [phone] 12/03/2024 10:00 AM CDT Telemedicine Division of Pulmonary Medicine in [address] [phone] Brad Hoffman M.D. [address] [place] [phone] documented as of this encounter Results * US Lower Extremity Venous Insufficiency Bilateral (08/30/2024 12:04 PM CDT) Anatomical Region Laterality Modality Lower Extremity, Ultrasound RST LOS, Ultrasound ARZ LOS, Ultrasound FLA LOS, Procedural, Vascular Interventional NWWI LOS Bilateral Ultrasound Impressions 08/30/2024 12:09 PM CDT 1. The tested deep and superficial veins are widely patent and competent. 2. No significant superficial venous varicosities are seen. Narrative 08/30/2024 12:09 PM CDT EXAM: US LOWER EXTREMITY VENOUS INSUFFICIENCY BILATERAL Exam performed with color and spectral Doppler analysis. COMPARISON: None. FINDINGS: RIGHT: The tested deep and superficial veins are widely patent and competent. No significant superficial venous varicosities are seen. LEFT: The tested deep and superficial veins are widely patent and competent. No significant superficial venous varicosities are seen. DVT SCREENING RIGHT: Normal LEFT: Normal Exam was performed with the patient standing and the leg being evaluated in a non weight-bearing position. Right CFV: Competent. Right FV: Competent. Right Pop: Competent. Right SFJ: Competent. Right AASV: Competent. Right GSV Upper: Competent. Right GSV Knee: Competent. Right GSV Calf : Competent. Right SPJ: Competent. Right SSV Calf: Competent. Right SFJ: 7.1 mm Right AASV: 6.4 mm Right GSV Upper: 4.8 mm Right GSV Knee: 2.0 mm Right SPJ: 6.7 mm Right SSV: 3.3 mm Left CFV: Competent. Left FV: Competent. Left Pop: Competent. Left SFJ: Competent. Left AASV: Competent. Left GSV Upper: Competent. Left GSV Knee: Competent. Left GSV Calf: Competent. Left SPJ: Competent. Left SSV Calf: Competent. Left SFJ: 7.9 mm Left AASV: 6.3 mm Left GSV Upper: 6.4 mm Left GSV Knee: 5.2 mm Left SPJ: 4.4 mm Left SSV: 4.0 mm Absent= A Not Imaged= x Mild = 0.5 to 1 second Moderate= 1 to 3 seconds Severe = > 3 seconds * For the femoral and popliteal veins, significant reflux is greater than 1 second. May upgrade or downgrade depending on amplitude of reflux. Procedure Note Paddy Goode M.D. - 08/30/2024 EXAM: US LOWER EXTREMITY VENOUS INSUFFICIENCY BILATERAL Exam performed with color and spectral Doppler analysis. COMPARISON: None. FINDINGS: RIGHT: The tested deep and superficial veins are widely patent andcompetent. No significant superficial venous varicosities are seen. LEFT: The tested deep and superficial veins are widely patent andcompetent. No significant superficial venous varicosities are seen. DVT SCREENING RIGHT: Normal LEFT: Normal Exam was performed with the patient standing and the leg being evaluatedin a non weight-bearing position. Right CFV: Competent. Right FV: Competent. Right Pop: Competent. Right SFJ: Competent. Right AASV: Competent. Right GSV Upper: Competent. Right GSV Knee: Competent. Right GSV Calf : Competent. Right SPJ: Competent. Right SSV Calf: Competent. Right SFJ: 7.1 mm Right AASV: 6.4 mm Right GSV Upper: 4.8 mm Right GSV Knee: 2.0 mm Right SPJ: 6.7 mm Right SSV: 3.3 mm Left CFV: Competent. Left FV: Competent. Left Pop: Competent. Left SFJ: Competent. Left AASV: Competent. Left GSV Upper: Competent. Left GSV Knee: Competent. Left GSV Calf: Competent. Left SPJ: Competent. Left SSV Calf: Competent. Left SFJ: 7.9 mm Left AASV: 6.3 mm Left GSV Upper: 6.4 mm Left GSV Knee: 5.2 mm Left SPJ: 4.4 mm Left SSV: 4.0 mm Absent= A Not Imaged= x Mild = 0.5 to 1 second Moderate= 1 to 3 seconds Severe = > 3 seconds * For the femoral and popliteal veins, significant reflux is greater than1 second. May upgrade or downgrade depending on amplitude of reflux. IMPRESSION: 1. The tested deep and superficial veins are widely patent and competent. 2. No significant superficial venous varicosities are seen. us Chuck Townsend M.D., Ph.D. IMG US PROCEDURES F inal Result documented in this encounter Visit Diagnoses Diagnosis Edema Lower Extremity- Primary Dyspnea On Exertion Edema Pitting Hypertension Essential Primary Atherosclerotic Heart Disease [place] Coronary Artery With Other Forms Angina Pectoris (Stable Angina/Angina Of Exertion) Hyperlipidemia Edema Pitting documented in this encounter Additional Health Concerns Assessment Noted Time PHQ-9 Depression Total Score: 6 04/29/19 20 12:40 PM CHIEF CRUISER documented as of this encounter Care Teams Seed District Sales Manager Relationship Specialty Start Date End Date Elsewhere, Pcp PCP - General Internal Medicine 04/24/23 documented as of this encounter
--- OUTSIDE RECORDS SUMMARY | 2024-08-30 10:06 | XMS_ITS | Encounter Summary ---
Author Organization [facility] Address [address] [place] [address] Care Team Providers Care Gasoline Plant Operator Name Role Phone Elsewhere, Pcp Primary Care Provider Unavailabl e Reason for Referral * Outpatient (Routine) - Closed Specialty Diagnoses / Procedures Referred By Carey escobar Referred To Contact Diagnoses Edema Pitting Procedures US Lower Extremity Venous Insufficiency Bilateral Chuck Townsend M.D., Ph.D. [address] [place] [address] Phone: tel: fax: [facility] Referral ID Status Reason Start Date Expiration Date Visits Re quested Visits Authorized [id number] Closed 08/27/2024 11/27/2025 1 1 Reason for Visit * Outpatient (Routine) - Closed Specialty Diagnoses / Procedures Referred By Carey escobar Referred To Contact Diagnoses Edema Pitting Procedures US Lower Extremity Venous Insufficiency Bilateral Chuck Townsend M.D., Ph.D. [address] [place] [phone] Phone: tel: fax: [facility] Referral ID Status Reason Start Date Expiration Date Visits Re quested Visits Authorized [id number] Closed 08/27/2024 11/27/2025 1 1 Encounter Details Date Type Department Care Team (Latest Contact Info) Description 08/30/2024 10:06 AM CDT - 08/30/2024 11:59 PM CDT Hospital Encounter Department of Radiology, [facility], in [place], [place] [address] [place] [address] Chuck Townsend M.D., Ph.D. [address] [place] [address] Edema Pitting Discharge Disposition: Home or Self Care Social History Tobacco Use Types Packs/Day Years Used Date Smoking Tobacco: Former Cigarettes 1 48.1 0 03/14/1975 - 04/24/2023 Smokeless Tobacco: Never Alcohol Use Standard Drinks/Week Comments Yes 0 (1 standard drink = 0.6 oz pur e alcohol) Very very rarely [facility] Utilities Answer Date Recorded In the past 12 months has [employer], gas, oil, or water [employer] threatened to shut off services in your [...] your living situation today? I have a [facility] place to live 05/23/2024 Education Answer Date Recorded What is the highest level of school you have completed or the highest degree you have received? Associate degree: academic program 02/12/2019 Comments No Sex and Gender Information Value Date Recorded Sex Assigned at Female 05/07/2023 12:13 PM NURSE OUTREACH CASE MANAGER Legal Sex Female 3:09 AM NURSE OUTREACH CASE MANAGER Gender Identity Female 07/20/2019 7:51 PM [...] CDT Telemedicine Department of Cardiovascular Medicine in [place], [place] [address] [place] [phone] Wilda Jaramillo APRN, C.N.P., M.S.N. [address] [place] [phone] 10/22/2024 9:45 AM CDT Appointment Department of Radiology, [facility], in [place], [place] [address] [place] [phone] Rupali Tate M.D. [address] [place] [address] 12/03/2024 10:00 AM CDT Telemedicine Division of Pulmonary Medicine in [place], [place] [address] [place] [address] Brad Hoffman M.D. [address] [place] [address] documented as of this encounter Procedures Procedure Name Priority Date/Time Associated Diagnosis Comments US LOWER EXTREMITY VENOUS INSUFFICIENCY BILATERAL RAD - Routine (most inpatients and all outpatients) 08/30/2024 12:04 PM CDT Edema Pitting documented in this encounter Results * US Lower Extremity [...] No significant superficial venous varicosities are seen. Chuck Townsend M.D., Ph.D. IMG US PROCEDURES F inal Result documented in this encounter Visit Diagnoses Diagnosis Edema Pitting documented in this encounter Additional Health Concerns Assessment Noted Time PHQ-9 Depression Total Score: 6 04/29/19 20 12:40 PM NURSE OUTREACH CASE MANAGER documented as of this encounter Care Teams Gasoline Plant Operator Relationship Specialty Start Date End Date Elsewhere, Pcp PCP - General Internal Medicine 04/24/23 documented as of this encounter
--- OUTSIDE RECORDS SUMMARY | 2024-09-09 08:48 | XMS_ITS | Encounter Summary ---
Author Organization [facility] Address [address] [place] [address] Care Team Providers Care Timber Framer Helper Name Role Phone Elsewhere, Pcp Primary Care Provider Unavailabl e Reason for Referral * Outpatient (Routine) - Closed Specialty Diagnoses / Procedures Referred By Carey escobar Referred To Contact Diagnoses Pain Hand Right Pain Hand Left Procedures EMG AZ EMG NDL NON-EXT W NRV Rupali Gillis M.D. [address] [place] [address] Phone: tel: fax: [facility] Referral ID Status Reason Start Date Expiration Date Visits Re quested Visits Authorized [id number] Closed 08/30/2024 11/30/2025 1 1 Reason for Visit * Outpatient (Routine) - Closed Specialty Diagnoses / Procedures Referred By Carey t Referred To Contact Diagnoses Pain Hand Right Pain Hand Left Procedures EMG AZ EMG NDL NON-EXT W NRV Rupali Gillis M.D. [address] [place] [address] Phone: tel: fax: [facility] Referral ID Status Reason Start Date Expiration Date Visits Re quested Visits Authorized [id number] Closed 08/30/2024 11/30/2025 1 1 Encounter Details Date Type Department Care Team (Late st Contact Info) Description 09/09/2024 8:48 AM CDT - 09/09/2024 11:59 PM CDT Hospital Encounter Department of Neurology in [place], [place] [address] [place] [address] Rupali Tate M.D. [address] [place] [address] Pain Hand Right; Pain Hand Left Discharge Disposition: Home or Self Care Social History Tobacco Use Types Packs/Day Years Used Date Smoking Tobacco: Former Cigarettes 1 48.1 0 03/14/1975 - 04/24/2023 Smokeless Tobacco: Never Alcohol Use Standard Drinks/Week Comments Yes 0 (1 standard drink = 0.6 oz pur e alcohol) Very very rarely [facility] Utilities Answer Date Recorded In the past 12 months has e [employer], gas, oil, or water [employer] threatened to shut off services in your [...] Sex Assigned at Female 05/07/2023 12:13 PM HOT IRON WORKER Legal Sex Female 3:09 AM HOT IRON WORKER Gender Identity Female 07/20/2019 7:51 PM [...] CDT Telemedicine Department of Cardiovascular Medicine in [place], [place] [address] [place] [phone] Wilda Jaramillo APRN, C.N.P., M.S.N. [address] [place] [phone] 10/22/2024 9:45 AM CDT Appointment Department of Radiology, [facility], in [place], [place] [address] [place] [address] Rupali Tate M.D. [address] [place] [address] 12/03/2024 10:00 AM CDT Telemedicine Division of Pulmonary Medicine in [place], [place] [address] [place] [phone] Brad Hoffman M.D. [address] [place] [address] documented as of this encounter Procedures Procedure Name Priority Date/Time Associated Diagnosis Comments EMG Routine 09/09/2024 8:48 AM CDT Pain Hand Right Pain Hand Left documented in this encounter Results * EMG (09/09/2024 8:48 AM CDT) 09/09/2024 9:30 AM CDT Narrative EMG - 09/09/2024 9:46 AM CDT Table formatting from the original result was not included. 09-Sep-2024 Electromyography Final Report Study Number: 1 EMG Metal Trimmer: Flo Magana 127 or [id number] Referred by: RUPALI TATE () Referred for: Bilateral hand pain Referral Code: 211 920 RX: [id number] SUMMARY: Prior to starting the procedure, the patient's identity was verified, pertinent available records were reviewed, the nature of the procedure was explained, the appropriate sites of the exam were confirmed directly with the patient, and a pre-procedure pause was performed for final verification of all of the above. The bilateral median sensory and motor distal latencies are prolonged with left greater than right median sensory amplitude reduction. Needle examination shows larger motor units in the right opponens pollicis not seen on the left with normal alternative C5 through T1 innervated muscle examination. The left and right median nerves were evaluated with ultrasound, using a high frequency linear transducer to evaluate the nerves in short and long axis at the wrists and in short axis at the mid forearms. The patient was positioned semi-recumbent, with the elbow extended, in relaxed supination. The nerve cross-sectional area at the wrists were enlarged bilaterally and the wrist-forearm cross-sectional area ratios were increased bilaterally. A bifid median nerve was not present on either side. Images were saved to the internal [employer] network medical observer. 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 At evidence for superimposed cervical radiculopathy on the right. Given the severity a orthopedic hand consultation may be helpful with wrists x-rays for arthritis. Martha Magana (127 or [phone])/SMB NERVE CONDUCTIONS Record Rep Normal Normal Distal Normal F-Wave F-Wave Temp Nerve Type Site Stim Side Amp Amp CV CV Lat Lat Lat Est ( C) Median Motor APB L 4.2 (> 4.0) 53 (> 48) 7.1 (< 4.5) 31.8 Median Motor APB R 4.7 (> 4.0) 54 (> 48) 6.0 (< 4.5) 34.1 Ulnar Motor ADM R 11.5 (> 6.0) 56 (> 51) 2.3 (< 3.6) 32.9 Median Sensory Dig II L 8 (> 15.0) (> 56) 6.0 (< 3.6) 31.3 Median Sensory Dig II R 11 (> 15.0) 57 (> 56) 4.8 (< 3.6) 32.1 Ulnar Sensory Dig V L 35 (> 10.0) (> 54) 2.6 (< 3.1) 31.2 Ulnar Sensory Dig V R 47 (> 10.0) 61 (> 54) 2.5 (< 3.1) 32.1 NEEDLE EMG Ins Spont MUP Recruitment Duration Amplitude Phases Muscle Side Act Fib Fasc Normal Activ Reduced Rapid Long Short High Low % Turns First dorsal interosseous R NL 0 0 NL Opponens pollicis R NL 0 0 ----- + Flexor pollicis brevis R NL 0 0 NL Pronator teres R NL 0 0 NL NERVE ULTRASOUND (Potential) Area Area Nerve Side Site (mm ) NL Segment Ratio NL Mobility Vascularity Comments Median L Wrist 17.2 < 12.0 Median L Forearm 6.3 Wrist - Forearm 2.7 < 2.00 Median R Wrist 19.3 < 12.0 Median R Forearm 6.7 Wrist - Forearm 2.9 < 2.00 This interpretation has been electronically signed: Flo Magana M.D. at 09/09/2024 9:44:54 AM CDT Procedure Note Flo Magana M.D. - 09/09/2024 09-Sep-2024 Electromyography Final Report Study Number: 1 EMG Metal Trimmer: Flo Magana. 127 or [id number] Referred by: RUPALI TATE () Referred for: Bilateral hand pain Referral Code: 211 920 RX: [id number] SUMMARY: Prior to starting the procedure, the patient's identity wasverified, pertinent available records were reviewed, the nature of theprocedure was explained, the appropriate sites of the exam were confirmeddirectly with the patient, and a pre-procedure pause was performed forfinal verification of all of the above. The bilateral median sensory andmotor distal latencies are prolonged with left greater than right mediansensory amplitude reduction. Needle examination shows larger motor unitsin the right opponens pollicis not seen on the left with normalalternative C5 through T1 innervated muscle examination. The left and right median nerves were evaluated with ultrasound, using ahigh frequency linear transducer to evaluate the nerves in short and longaxis at the wrists and in short axis at the mid forearms. The patient waspositioned semi-recumbent, with the elbow extended, in relaxed supination.The nerve cross-sectional area at the wrists were enlarged bilaterally andthe wrist- forearm cross-sectional area ratios were increased bilaterally.A bifid median nerve was not present on either side. Images were saved tothe internal Quickly[employer] network medical observer. CLINICAL INTERPRETATION: The electrophysiologic findings are of bilateralmedian neuropathies at the wrists of moderate electrophysiologic severity.At evidence for superimposed cervical radiculopathy on the right. Giventhe severity a orthopedic hand consultation may be helpful with wristsx-rays for arthritis. Martha Magana (127 or [phone])/SMB NERVE CONDUCTIONS Record Rep Normal Normal Distal Normal F-Wave F-Wave Temp Nerve Type Site Stim Side Amp Amp CV CV Lat Lat Lat Est ( C) Median Motor APB L 4.2 (> 4.0) 53 (> 48) 7.1 (< 4.5) 31.8 Median Motor APB R 4.7 (> 4.0) 54 (> 48) 6.0 (< 4.5) 34.1 Ulnar Motor ADM R 11.5 (> 6.0) 56 (> 51) 2.3 (< 3.6) 32.9 Median Sensory Dig II L 8 (> 15.0) (> 56) 6.0 (< 3.6) 31.3 Median Sensory Dig II R 11 (> 15.0) 57 (> 56) 4.8 (< 3.6) 32.1 Ulnar Sensory Dig V L 35 (> 10.0) (> 54) 2.6 (< 3.1) 31.2 Ulnar Sensory Dig V R 47 (> 10.0) 61 (> 54) 2.5 (< 3.1) 32.1 NEEDLE EMG Ins Spont MUP Recruitment Duration Amplitude Phases Muscle Side Act Fib Fasc Normal Activ Reduced Rapid Long Short High Low %Turns First dorsal interosseous R NL 0 0 NL Opponens pollicis R NL 0 0 ----- + Flexor pollicis brevis R NL 0 0 NL Pronator teres R NL 0 0 NL NERVE ULTRASOUND (Potential) Area Area Nerve Side Site (mm ) NL Segment Ratio NL Mobility Vascularity Comments Median L Wrist 17.2 < 12.0 Median L Forearm 6.3 Wrist - Forearm 2.7 < 2.00 Median R Wrist 19.3 < 12.0 Median R Forearm 6.7 Wrist - Forearm 2.9 < 2.00 This interpretation has been electronically signed: ChristopherJ. Magana M.D. at 09/09/2024 9:44:54 AM CDT us Rupali Tate M.D. NEUROLOGY ORDERABLES Ramiro carrie Result - Final EMG documented in this encounter Visit Diagnoses Diagnosis Pain Hand Right Pain Hand Left documented in this encounter Additional Health Concerns Assessment Noted Time PHQ-9 Depression Total Score: 6 04/29/19 20 12:40 PM HOT IRON WORKER documented as of this encounter Care Teams Timber Framer Helper Relationship Specialty Start Date End Date Elsewhere, Pcp PCP - General Internal Medicine 04/24/23 documented as of this encounter
--- OUTSIDE RECORDS SUMMARY | 2024-09-09 08:55 | XMS_ITS | Encounter Summary ---
Author Organization [facility] Address [address] [place] [address] Care Team Providers Care Tape Controlled Machine Stitcher Name Role Phone Elsewhere, Pcp Primary Care Provider Unavailabl e Encounter Details Date Type Department Care Team (Late st Contact Info) Description 09/09/2024 8:55 AM CDT Ancillary Procedure Department of Neurology Arrived Social History Tobacco Use Types Packs/Day Years Used Date Smoking Tobacco: Former Cigarettes 1 48.1 0 03/14/1975 - 04/24/2023 Smokeless Tobacco: Never Alcohol Use Standard Drinks/Week Comments Yes 0 (1 standard drink = 0.6 oz pur e alcohol) Very very rarely [facility] Utilities Answer Date Recorded In the past 12 months has [facility] [employer], gas, oil, or water [employer] threatened to shut off services in your [...] your living situation today? I have a [facility] place to live 05/23/2024 Education Answer Date Recorded What is the highest level of school you have completed or the highest degree you have received? Associate degree: academic program 02/12/2019 Comments No Sex and Gender Information Value Date Recorded Sex Assigned at Female 05/07/2023 12:13 PM FORENSIC NURSE Legal Sex Female 3:09 AM FORENSIC NURSE Gender Identity Female 07/20/2019 7:51 PM CDT Sexual Orientation Straight 07/20/2019 7: 51 PM CDT documented as of this encounter Plan of Treatment Upcoming Encounters Date Type Department Care Team (Late st Contact Info) Description 09/23/2024 9:30 AM CDT Telemedicine Department of Cardiovascular Medicine in [place], [place] [address] [place] [phone] Wilda Jaramillo APRN, C.N.P., M.S.N. [address] [place] [phone] 10/22/2024 9:45 AM CDT Appointment Department of Radiology, [facility], in [place], [place] [address] [place] [address] Rupali Tate M.D. [address] [place] [address] 12/03/2024 10:00 AM CDT Telemedicine Division of Pulmonary Medicine in [place], [place] [address] [place] [address] Brad Hoffman M.D. [address] [place] [address] documented as of this encounter Procedures Procedure Name Priority Date/Time Associated Diagnosis Comments NEUROLOGY IMAGE EXAM Routine 09/09/2024 8:55 AM CDT documented in this encounter Results * Patrick NMUS+-Neurology Image Exam (09/09/2024 8:55 AM CDT) 09/09/2024 8:53 AM CDT Narrative [facility]S - 09/09/2024 10:02 AM CDT This order has been created [...] Total Score: 6 04/29/19 20 12:40 PM FORENSIC NURSE documented as of this encounter Care Teams Tape Controlled Machine Stitcher Relationship Specialty Start Date End Date Elsewhere, Pcp PCP - General Internal Medicine 04/24/23 documented as of this encounter
--- OUTSIDE RECORDS SUMMARY | 2024-09-12 07:44 | XMS_ITS | Encounter Summary ---
Author Organization [facility] Address [address] [place] [address] Care Team Providers Care Inspector Mechanical Name Role Phone Elsewhere, Pcp Primary Care Provider Unavailabl e Encounter Details Date Type Department Care Team (Late st Contact Info) Description 08/08/2024 Orders Only Department of Cardiac Rehabilitation in [place], [place] [address] [place] [address] Dee Powell, [facility] Angina Stable (Primary Dx) Social History Tobacco Use Types Packs/Day Years Used Date Smoking Tobacco: Former Cigarettes 1 48.1 0 03/14/1975 - 04/24/2023 Smokeless Tobacco: Never Alcohol Use Standard Drinks/Week Comments Yes 0 (1 standard drink = 0.6 oz pur e alcohol) Very very rarely [facility] Utilities Answer Date Recorded In [...] Sex Assigned at Female 05/07/2023 12:13 PM CONDUCTOR PULLMAN Legal Sex Female 3:09 AM CONDUCTOR PULLMAN Gender Identity Female 07/20/2019 7:51 PM CDT Sexual Orientation Straight 07/20/2019 7: 51 PM CDT documented as of this encounter Plan of Treatment Upcoming Encounters Date Type Department Care Team (Late st Contact Info) Description 09/23/2024 9:30 AM CDT Telemedicine Department of Cardiovascular Medicine in [place], [place] [address] [place] [phone] Wilda Jaramillo APRN, C.N.P., M.S.N. [address] [place] [address] 10/22/2024 9:45 AM CDT Appointment Department of Radiology, [facility], in [place], [place] [address] [place] [address] Rupali Tate M.D. [address] [place] [address] 12/03/2024 10:00 AM CDT Telemedicine Division of Pulmonary Medicine in [place], [place] [address] [place] [address] Brad Hoffman M.D. [address] [place] [address] documented as of this encounter Visit Diagnoses Diagnosis Angina Stable- Primary documented in this encounter Additional Health Concerns Assessment Noted Time PHQ-9 Depression Total Score: 6 04/29/19 20 12:40 PM CONDUCTOR PULLMAN documented as of this encounter Care Teams Inspector Mechanical Relationship Specialty Start Date End Date Elsewhere, Pcp PCP - General Internal Medicine 04/24/23 documented as of this encounter
--- OUTSIDE RECORDS SUMMARY | 2024-09-12 07:44 | XMS_ITS | Encounter Summary ---
Author Organization [facility] Address [address] [place] [address] Care Team Providers Care Scenic Arts Supervisor Name Role Phone Elsewhere, Pcp Primary Care Provider Unavailabl e Encounter Details Date Type Department Care Team (Latest Contact Info) Description 08/01/2024 Orders Only Department of Cardiovascular Medicine in [place], [place] [address] [place] [address] Chuck Townsend M.D., Ph.D. [address] [place] [address] Atherosclerotic Heart Disease [place] Coronary Artery With Other Forms Angina Pectoris (Stable Angina/Angina Of Exertion) (Primary Dx); Shortness Of Breath; Dyspnea On Exertion Social History Tobacco Use [...] your living situation today? I have a [facility] place to live 05/23/2024 Education Answer Date Recorded What is the highest level of school you have completed or the highest degree you have received? Associate degree: academic program 02/12/2019 Comments No Sex and Gender Information Value Date Recorded Sex Assigned at Female 05/07/2023 12:13 PM PSYCHOLOGY INSTRUCTOR Legal Sex Female 3:09 AM PSYCHOLOGY INSTRUCTOR Gender Identity Female 07/20/2019 7:51 PM CDT Sexual Orientation Straight 07/20/2019 7: 51 PM CDT documented as of this encounter Plan of Treatment Upcoming Encounters Date Type Department Care Team (Late st Contact Info) Description 09/23/2024 9:30 AM CDT Telemedicine Department of Cardiovascular Medicine in [place], [place] [address] [place] [address] MickowWilda APRN, C.N.P., M.S.N. [address] [place] [address] 10/22/2024 9:45 AM CDT Appointment Department of Radiology, [facility], in [place], [place] [address] [place] [address] Rupali Tate M.D. [address] [place] [address] 12/03/2024 10:00 AM CDT Telemedicine Division of Pulmonary Medicine in [place], [place] [address] [place] [address] Brad Hoffman M.D. [address] [place] [phone] documented as of this encounter Visit Diagnoses Diagnosis Atherosclerotic Heart Disease [place] Coronary Artery With Other Forms Angina Pectoris (Stable Angina/Angina Of Exertion)- Primary Shortness Of Breath Dyspnea On Exertion documented in this encounter Additional Health Concerns Assessment Noted Time PHQ-9 Depression Total Score: 6 04/29/19 20 12:40 PM PSYCHOLOGY INSTRUCTOR documented as of this encounter Care Teams Scenic Arts Supervisor Relationship Specialty Start Date End Date Elsewhere, Pcp PCP - General Internal Medicine 04/24/23 documented as of this encounter
--- OUTSIDE RECORDS SUMMARY | 2024-09-12 07:44 | XMS_ITS | Encounter Summary ---
Author Organization [facility] Address [address] [place] [address] Care Team Providers Care Plc Programmer Name Role Phone Elsewhere, Pcp Primary Care Provider Unavailabl e Reason for Visit * Reason Onset Date Comments Appt Request 07/23/2024 Encounter Details Date Type Department Care Team (Latest Contact Info) Description 07/23/2024 Clinical Communication Department of Cardiovascular Medicine in [place], [place] [address] [place] [address] Business Data AnalystZachary M.D. Appt Request Social History Tobacco Use Types Packs/Day Years Used Date Smoking Tobacco: Former Cigarettes 1 48.1 0 03/14/1975 - 04/24/2023 Smokeless Tobacco: Never Alcohol Use Standard Drinks/Week Comments Yes 0 (1 standard drink = 0.6 oz pur e alcohol) Very very rarely [facility] Utilities Answer Date Recorded In [...] your living situation today? I have a [facility] place to live 05/23/2024 Education Answer Date Recorded What is the highest level of school you have completed or the highest degree you have received? Associate degree: academic program 02/12/2019 Comments No Sex and Gender Information Value Date Recorded Sex Assigned at Female 05/07/2023 12:13 PM GOVERNMENT PROGRAM MANAGER Legal Sex Female 3:09 AM GOVERNMENT PROGRAM MANAGER Gender Identity Female 07/20/2019 7:51 PM CDT Sexual Orientation Straight 07/20/2019 7: 51 PM CDT documented as of this encounter Miscellaneous Notes * Telephone Encounter - Dank Giordano - 07/23/2024 10:[address] Townsend, We have a request for the patient to see you. I did not see any availability on your schedule. Did you want to see this still? If so are you able to work the patient in as an extra? documented in this encounter Plan of Treatment Upcoming Encounters Date Type Department Care Team (Late st Contact Info) Description 09/23/2024 9:30 AM CDT Telemedicine Department of Cardiovascular Medicine in [place], [place] [address] [place] [address] Wilda Jaramillo APRN, C.NJustinP., M.S.N. [address] [place] [phone] 10/22/2024 9:45 AM CDT Appointment Department of Radiology, [facility] in [place], [place] [address] [place] [address] Rupali Tate M.D. [address] [place] [phone] 12/03/2024 10:00 AM CDT Telemedicine Division of Pulmonary Medicine in [place], [place] [address] [place] [phone] Brad Hoffman M.D. [address] [place] [phone] documented as of this encounter Visit Diagnoses Not on filedocumented in this encounter Additional Health Concerns Assessment Noted Time PHQ-9 Depression Total Score: 6 04/29/19 20 12:40 PM GOVERNMENT PROGRAM MANAGER documented as of this encounter Care Teams Plc Programmer Relationship Specialty Start Date End Date Elsewhere, Pcp PCP - General Internal Medicine 04/24/23 documented as of this encounter
--- OUTSIDE RECORDS SUMMARY | 2024-09-12 07:45 | XMS_ITS | Clinical Summary ---
Author Organization [facility] Address [address] [place] [address] Care Team Providers Care Food And Nutrition Teacher Name Role Phone Elsewhere, Pcp Primary Care Provider Unavailabl e Source Comments Patient records contain information from all sites at [facility]. For routine questions regarding patient records, call [phone] during business hours, M-F 8:00 AM - 5:00 PM Central Time. Record requests for emergency care only can be directed to [phone] at any time.[facility] Allergies Active Allergy Reactions Criticality [...] for chest pain. 30 tablet 4 Active ipratropium-alb uteroL (DuoNeb) 0.5-2.5 mg/3 [...] of the procedure. 5 tablet 5 Active albuterol 90 mcg/actuation inhalerIndicati ons:Shortness Of Breath,Chronic Obstructive Pulmonary Disease (HCC) INHALE 2 PUFFS BY MOUTH EVERY 4 HOURS NEEDED FOR WHEEZING AND FOR SHORTNESS OF BREATH 18 g 5 Active azithromycin (Zithromax) 250 mg tablet Take 250 mg by mouth as needed. 5 Active fluocinonide (Lidex) 0.05 % ointment Apply 1 Application topically 2 (two) times a day. Active metoprolol tartrate (Lopressor) 25 mg tablet Take 1 tablet by mouth 2 (two) times a day. Active predniSONE (Deltasone) 20 mg tablet Take 20 mg by mouth as needed. Active Active Problems Problem Noted Date Diagnosed Date Edema Pitting 05/29/2024 Dyspnea On Exertion 05/29/2024 Hypoxia 04/26/2023 Abuse Tobacco Smoking 04/26/2023 Counseling Smoking Cessation 04/26/2023 Atherosclerotic Heart Diseas e [place] Coronary Artery With Other Forms Angina Pectoris [...] Encounters Date Type Department Care Team Description 09/09/2024 8:55 AM CDT Ancillary Procedure Department of Neurology Arrived 09/09/2024 8:48 AM CDT - 09/09/2024 11:59 PM CDT Hospital Encounter Department of Neurology in [place], [place] [address] [place] [address] Rupali Raygoza M.D. Pain Hand Right; Pain Hand Left Discharge Disposition: Home or Self Care 09/04/2024 Results Follow-Up Department of Cardiovascular Medicine in [place], [place] [address] [place] [address] Chuck Townsend M.D., Ph.D. [place] Lower Extremity Venous Insufficiency Bilateral 08/30/2024 10:06 AM CDT - 08/30/2024 11:59 PM CDT Hospital Encounter Department of Radiology, [facility], in [place], [place] [address] [place] [address] Amdahl, Chuck B, M.D., Ph.D. Edema Pitting Discharge Disposition: Home or Self Care 08/27/2024 3:15 PM CDT Office Visit Department of Cardiovascular Medicine in [place], [place] [address] [place] [phone] Chuck Townsend M.D., Ph.D. Edema Lower Extremity (Primary Dx); Dyspnea On Exertion; Edema Pitting; Hypertension Essential Primary; Atherosclerotic Heart Disease [place] Coronary Artery With Other Forms Angina Pectoris (Stable Angina/Angina Of Exertion); Hyperlipidemia 08/08/2024 Orders Only Department of Cardiac Rehabilitation in [place], [place] [address] [place] [phone] Dee Powell CEP Angina Stable (Primary Dx) 08/01/2024 Orders Only Department of Cardiovascular Medicine in [place], [place] [address] [place] [address] [phone] Chuck Townsend M.D., Ph.D. Atherosclerotic Heart Disease [place] Coronary Artery With Other Forms Angina Pectoris (Stable Angina/Angina Of Exertion) (Primary Dx); Shortness Of Breath; Dyspnea On Exertion 07/30/2024 7:45 AM CDT - 07/30/2024 11:59 PM CDT Hospital Encounter Department of Cardiac Rehabilitation in [place], [place] [address] [place] [address] [phone] Chuck Townsend M.D., Ph.D. Angina Pectoris Tobacco User; Atherosclerotic Heart Disease [place] Coronary Artery With Other Forms Angina Pectoris (Stable Angina/Angina Of Exertion); Shortness Of Breath Discharge Disposition: Home or Self Care 07/30/2024 Refill Division of Pulmonary Medicine in [place], [place] [address] [place] [address] [phone] Anum Jacobson APRN, C.N.P., D.N.P. Med Refill 07/23/2024 Clinical Communication Department of Cardiovascular Medicine in [place], [place] [address] [place] [phone] Precision MachinistZachary M.D. Appt Request 07/17/2024 Orders Only Department of Cardiovascular Medicine in [place], [place] [address] [place] [phone] Chuck Townsend M.D., Ph.D. Angina Pectoris Tobacco User (Primary Dx); Atherosclerotic Heart Disease [place] Coronary Artery With Other Forms Angina Pectoris (Stable Angina/Angina Of Exertion); Shortness Of Breath 06/28/2024 3:00 PM CDT Virtual Visit Division of Pulmonary Medicine in [place], [place] [address] [place] [address] Anum Jacobson, AMEENA, C.N.P., Suzanne.N.P. Dipti Gregorio R.N. Lung Cancer Screening (Primary Dx); Smoking Tobacco Use Personal History 06/13/2024 3:35 AM CDT Ancillary Procedure Department of Plastic and Reconstructive Surgery 06/13/2024 Results Follow-Up [address] [phone] Anum Carroll, RTejas [place] Upper Extremity Arteries Right 06/12/2024 9:58 PM CDT - 06/13/2024 4:15 AM CDT Emergency [facility] Emergency Department [address] [place] [address] Leonardo Jones M.D. Unspecified Injury Radial Artery Forearm Level Right Initial (Primary Dx); Pain Postoperative Discharge Disposition: Home or Self Care from Last 3 Months Immunizations Immunization Administration Dates Next Due H1N1 All Forms 12/31/2008 Influenza, Unspecified 12/09/2009 Family History Medical History Relation Name Comments Dementia Brother Mckinley Lorena Early onset Al zheimer s Alcohol abuse Father Francisco Carrillo Jr Suicide Attempts Father Francisco Carrillo Jr Coronary artery disease Maternal Grandfather Gallo Go dwin Hyperlipidemia Maternal Grandfather Gallo Banks Skin cancer Maternal Grandfather Gallo Banks Arthritis Mother Tiffanie Bravo Dementia Mother Tiffanie Rbavo Diabetes Mother Tiffanie Bravo Hyperlipidemia Mother Tiffanie Bravo Alcohol abuse Paternal Grandfather Francisco alvarado Sr Alcohol abuse Paternal Grandmother Marge Carrillo ADD Son 1 Tyerll Keegan Drug abuse Son 1 Tyrell Keegan [...] 0 03/14/1975 - 04/24/2023 Smokeless Tobacco: Never Tobacco Cessation:Counseling Given: Not Answered Alcohol Use Standard Drinks/Week Comments Yes 0 (1 standard drink = 0.6 oz pur e alcohol) Very very rarely [facility] Utilities Answer Date Recorded In the past 12 months has e [employer] [place], gas, oil, or water [employer] threatened to shut off services in your [...] Sex Assigned at Female 05/07/2023 12:13 PM SALESPERSON TERRAZZO TILES Legal Sex Female 3:09 AM SALESPERSON TERRAZZO TILES Gender Identity Female 07/20/2019 7:51 PM CDT Sexual Orientation Straight 07/20/2019 7: 51 PM CDT Last Filed Vital Signs Vital Sign Reading Time Taken Comments Blood Pressure 132/79 08/27/2024 2:59 PM CDT Pulse 76 08/27/2024 2:59 PM CDT Temperature 36.5 C (97.7 F) 06/12/2024 10:07 PM CDT Respiratory Rate 18 06/12/2024 10:07 PM CDT Oxygen Saturation 95% 06/13/2024 1:00 AM CDT Inhaled Oxygen Concentration - - Weight 98.7 kg (217 lb 9.5 oz) 08/27/2024 2:59 P M CDT Height 156.3 cm (5' 1.54) 08/27/2024 2:59 PM CD T Body Mass Index 40.4 08/27/2024 2:59 PM CDT Plan of Treatment Upcoming Encounters Date Type Department Care Team (Late st Contact Info) Description 09/23/2024 9:30 AM CDT Telemedicine Department of Cardiovascular Medicine in [place], [place] [address] [place] [phone] Wilda Jaramillo APRN, C.N.P., M.S.N. [address] [place] [phone] 10/22/2024 9:45 AM CDT Appointment Department of Radiology, [facility], in [place], [place] [address] [place] [phone] Rupali Raygoza M.D. [address] [place] [phone] 12/03/2024 10:00 AM CDT Telemedicine Division of Pulmonary Medicine in [place], [place] [address] [place] [phone] Brad Hoffman M.D. [address] [place] [address] Health Maintenance Due Date Last Done Comments CT Colonography 1960 Cologuard 1960 Colonoscopy 1960 Colorectal Cancer Surveillance 1960 HIV Screening 1960 Hepatitis C Screening 1960 Mammogram 1960 Cervical/Vaginal Cancer Screening 06/21/2019 06/20/2016 Zoster Vaccines (2 of 2) 03/31/2020 02/04/2020 RSV vaccine - (32-36 weeks) or 60+ years (1 - Risk 60-74 years 1-dose series) 2020 COVID-19 Vaccine (3 - 2023- season) 2023 04/27/2021, 03/24/2020, 02/26/2020 Depression Screening (Annual PHQ-2) 03/06/2024 Lung Cancer Screening 05/21/2024 05/22/2023 Influenza Vaccine (#1) 2024 , 12/22/2022, 01/07/2022, Additional history exists Creatinine Level (Kidney Function Test) 06/13/2025 06/13/2024, 05/29/2024, 04/26/2023, Additional history exists Potassium Level 06/13/2025 06/13/2024, 05/05, 04/26/2023, Additional history exists Sodium Level 06/13/2025 06/13/2024, 05/05, 04/26/2023, Additional history exists Office Visit for Blood Pressure Check / Re-check 08/27/2025 08/27/2024 Fasting Glucose for Diabetes Screening 06/14/2027 06/13/2024, 05/29/2024, 04/26/2023, Additional history exists Lipid (Cholesterol) Screening 07/04/2028 07/05/2023, 04/25/2023, 02/12/2019, Additional history exists DTaP,Tdap,and Td Vaccines (3 - Td or Tdap) 02/03/2030 02/04/2020, 09/01/2009 Pneumococcal vaccine (50+ years) Completed 07/21/2022 IPV Vaccines Aged Out No longer eligi ble based on patient's age to complete this topic Procedures Procedure Name Priority Date/Time Associated Diagnosis Comments NEUROLOGY IMAGE EXAM Routine 09/09/2024 8:55 AM CDT EMG Routine 09/09/2024 8:48 AM CDT Pain Hand Right Pain Hand Left US LOWER EXTREMITY VENOUS INSUFFICIENCY BILATERAL RAD - Routine (most inpatients and all outpatients) 08/30/2024 12:04 PM CDT Edema Pitting PLASTIC AND RECON SURGERY IMAGE EXAM Routine [...] RATE, B STAT 06/13/2024 12:53 AM CDT LIPID PANEL, S Routine 07/05/2023 9:54 AM CDT Abdominal Aortic Aneurysm Without Rupture Unspecified (HCC) CT CHEST WITHOUT IV CONTRAST RAD - Routine (most inpatients and all outpatients) 05/22/2023 3:02 PM CDT Shortness Of Breath from Last 3 Months or Most Recently Relevant to Health Maintenance Results * [place] [facility]US+-Neurology Image Exam (09/09/2024 8:55 AM CDT) [...] PROCE DURES Final Result IIMS NA * EMG (09/09/2024 8:48 AM CDT) 09/09/2024 9:30 AM CDT Narrative EMG - 09/09/2024 9:46 AM CDT Table formatting from the original result was not included. 09-Sep-2024 Electromyography Final Report Study Number: 1 EMG Nurse Prn: Flo Magana 127 or [phone] Referred by: RUPALI RAYGOZA () Referred for: Bilateral hand pain Referral [...] side. Images were saved to the internal [employer] network server programmer. 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 At evidence for superimposed cervical radiculopathy on the right. Given the severity a orthopedic hand consultation may be helpful with wrists x-rays for arthritis. Martha Magana (127 or [phone])/SMB NERVE CONDUCTIONS Record Rep Normal Normal Distal [...] Electromyography Final Report Study Number: 1 EMG Nurse Prn: Flo Magana 127 or [phone] Referred by: RUPALI RAYGOZA () Referred for: Bilateral hand pain Referral [...] on either side. Images were saved tothe [employer] server programmer. CLINICAL INTERPRETATION: The electrophysiologic findings are of bilateralmedian neuropathies at the wrists of moderate electrophysiologic severity.At evidence for superimposed cervical radiculopathy on the right. Giventhe severity a orthopedic hand consultation may be helpful with wristsx-rays for arthritis. Martha Magana (127 or [phone])/SMB NERVE CONDUCTIONS Record Rep Normal Normal Distal [...] at 09/09/2024 9:44:54 AM CDT us Rupali Raygoza M.D. NEUROLOGY ORDERABLES Ramiro carrie Result - Final [facility] EMG * US Lower Extremity Venous Insufficiency Bilateral [...] varicosities are seen. Chuck Townsend M.D., Ph.D. [facility] US PROCEDURES F inal Result * Hand-Plastic And Recon Surgery Image Exam (06/13/2024 3:35 AM CDT) 06/13/2024 3:33 AM CDT Narrative IIMS - 06/13/2024 3:35 AM CDT This order has been created and auto-finalized to support the import of images acquired without order. The clinical documentation to support these images can be found on the encounter that produced images. us Provider Not In System IM NON RAD IMAGING PROCE DURES Final Result [...] and management can be found on the [employer] site. Link [email or web address] Procedure Note Maksim Montoya M.D. - 06/13/2024 EXAM: US UPPER EXTREMITY VEINS RIGHT Exam performed with color and spectral Doppler analysis. COMPARISON: None. FINDINGS: RIGHT: Internal Jugular Vein: Negative. Innominate Vein: Negative. Subclavian Vein: Negative. Axillary Vein: Negative. Brachial Veins: Negative. Cephalic Vein: Negative. Basilic Vein: Negative. Information on venous thrombosis and management can be found on the[employer] site. [email or web address] IMPRESSION: Negative for acute DVT in the right upper extremity. us Leonardo Jones M.D. IMG US PROCEDURES F [...] (ABNORMAL) Sedimentation Rate (06/13/2024 12:53 AM CDT) Pathologist [facility] Sedimentation Rate, B 24(H) 2 - 22 mm/h 06/13/2024 2:23 AM CDT DTL Blood (Blood, Venous) 06/13/2024 12:53 AM CDT 06/13/2024 1:29 AM CDT Leonardo Jones M.D. LAB BLOOD ADD-ON Fi nal Result [facility] [address] [place] [address], [facility] [address] [place] [address] * (ABNORMAL) CBC with Differential, Blood (06/13/2024 12:53 AM CDT) Pathologist [facility] Hemoglobin 11.4(L) 11.6 - 15.0 g/dL 06/13/2024 [...] ADD-ON Fi nal Result Performing Organization Address City/[facility]/ZIP Co de Phone Number [facility] [address] [facility] [address] [place] [address] [facility] [address] [place] [address] * (ABNORMAL) CRP (C-Reactive Protein) (06/13/2024 12:53 AM CDT) [facility] Signature C-Reactive Protein (CRP), S 5.3(H) <5.0 mg/L 06/13/2024 2:09 AM CDT DTL Blood (Blood, Venous) 06/13/2024 12:53 AM CDT 06/13/2024 1:45 AM CDT Leonardo Jones M.D. LAB BLOOD ADD-ON Fi nal Result [facility] [address] DTL [facility] [address] [place] [address] * CK (Creatine Kinase) (06/13/2024 12:53 AM CDT) Creatine Kinase (CK), S 89 26 - 192 U/L 06/13/2024 2:09 AM CDT DTL Blood (Blood, Venous) 06/13/2024 12:53 AM CDT 06/13/2024 1:45 AM CDT Leonardo Jones M.D. LAB BLOOD ADD-ON Fi nal Result [facility] [address] [place] [address], [facility] DTL [facility] [address] [place] [address] * Basic Metabolic Panel (06/13/2024 12:53 AM CDT) Pathologist [facility] Potassium, P 4.1 3.6 - 5.2 mmol/L [...] M.D. LAB BLOOD ADD-ON Fi nal Result [facility] [address] [place] [address], [place] [facility] [address] [place] [address] * Lipid Panel (07/05/2023 9:54 AM CDT) [...] D.O. LAB BLOOD ADD-ON Final Re sult [facility] [address] [place] [address], [place] DTL [facility] [address] [place] [address] * CT Chest without IV Contrast (05/22/2023 [...] Severe coronary artery calcification. Perla Lorenz M.D. IMSavana CT PROCEDURES Final Re sult from Last 3 Months or Most Recently Relevant to Health Maintenance Insurance [facility] Advance Directives For more information, please contact: [phone] * Full Code (Latest Code Status on File) Date Activated Date Inactivated Comments 04/24/2023 5:03 AM 04/26/2023 3:35 PM Question Answer Comments Full Code: Discussed * Full Code Date Activated Date Inactivated Comments 01/04/2019 11:20 PM 01/05/2019 7:41 PM Question Answer Comments Full Code: Discussed Care Teams Food And Nutrition Teacher Relationship Specialty Start Date End Date Elsewhere, Pcp PCP - General Internal Medicine 04/24/23
--- OUTSIDE RECORDS SUMMARY | 2024-09-12 07:45 | XMS_ITS | Encounter Summary ---
Author Organization [facility] Address [address] [place] [address] Care Team Providers Care Field Machinist Name Role Phone Elsewhere, Pcp Primary Care Provider Unavailabl e Encounter Details Date Type Department Care Team (Latest Contact Info) Description 09/04/2024 Results Follow-Up Department of Cardiovascular Medicine in [place], [place] [address] [place] [address] Chuck Townsend M.D., Ph.D. [address] [place] [address] Lower Extremity Venous Insufficiency Bilateral Social History Tobacco Use Types Packs/Day Years Used Date Smoking Tobacco: Former Cigarettes 1 48.1 0 03/14/1975 - 04/24/2023 Smokeless Tobacco: Never Alcohol Use Standard Drinks/Week Comments Yes 0 (1 standard drink = 0.6 oz pur e alcohol) Very very rarely [facility] Utilities Answer Date Recorded In the [...] your living situation today? [facility] 05/23/2024 Education Answer Date Recorded What is the highest level of school you have completed or the highest degree you have received? Associate degree: academic program 02/12/2019 Comments No Sex and Gender Information Value Date Recorded Sex Assigned at Female 05/07/2023 12:13 PM TAX EXAMINER Legal Sex Female 3:09 AM TAX EXAMINER Gender Identity Female 07/20/2019 7:51 PM CDT Sexual Orientation Straight 07/20/2019 7: 51 PM CDT documented as of this encounter Plan of Treatment Upcoming Encounters Date Type Department Care Team (Late st Contact Info) Description 09/23/2024 9:30 AM CDT Telemedicine Department of Cardiovascular Medicine in [place], [place] [address] [place] [address] Wilda Jaramillo APRN, C.N.P., M.S.N. [address] [place] [phone] 10/22/2024 9:45 AM CDT Appointment Department of Radiology, [facility], in [place], [place] [address] [place] [address] Rupali Tate M.D. [address] [place] [address] 12/03/2024 10:00 AM CDT Telemedicine Division of Pulmonary Medicine in [place], [place] [address] [place] [address] Brad Hoffman M.D. [address] [place] [address] documented as of this encounter Visit Diagnoses Not on filedocumented in this encounter Additional Health Concerns Assessment Noted Time PHQ-9 Depression Total Score: 6 04/29/19 20 12:40 PM TAX EXAMINER documented as of this encounter Care Teams Field Machinist Relationship Specialty Start Date End Date Elsewhere, Pcp PCP - General Internal Medicine 04/24/23 documented as of this encounter
--- OUTSIDE RECORDS SUMMARY | 2024-09-12 07:45 | XMS_ITS | Encounter Summary ---
Author Organization [facility] Address [address] [place] [address] Care Team Providers Care Senior Communications Specialist Name Role Phone Elsewhere, Pcp Primary Care Provider Unavailabl e Reason for Visit * Reason Comments Med Refill Encounter Details Date Type Department Care Team (Late st Contact Info) Description 07/30/2024 Refill Division of Pulmonary Medicine in [place], [place] [address] [place] [phone] Anum Jacobson, AMEENA, C.N.P., D.N.P. [address] [place] [phone] Med Refill Social History Tobacco Use Types Packs/Day Years Used Date Smoking Tobacco: Former Cigarettes 1 48.1 0 03/14/1975 - 04/24/2023 Smokeless Tobacco: Never Alcohol Use Standard Drinks/Week Comments Yes 0 (1 standard drink = 0.6 oz pur e alcohol) Very very rarely [facility] Utilities Answer Date Recorded In [...] your living situation today? I have a [facility] place [facility] live 05/23/2024 Education Answer Date Recorded What is the highest level of school you have completed or the highest degree you have received? Associate degree: academic program 02/12/2019 Comments No Sex and Gender Information Value Date Recorded Sex Assigned at Female 05/07/2023 12:13 PM DIRECTOR DIGITAL MARKETING Legal Sex Female 3:09 AM DIRECTOR DIGITAL MARKETING Gender Identity Female 07/20/2019 7:51 PM CDT Sexual Orientation Straight 07/20/2019 7: 51 PM CDT documented as of this encounter Plan of Treatment Upcoming Encounters Date Type Department Care Team (Late st Contact Info) Description 09/23/2024 9:30 AM CDT Telemedicine Department of Cardiovascular Medicine in [place], [place] [address] [place] [address] Wilda Jaramillo APRN, C.N.P., M.S.N. [address] [place] [phone] 10/22/2024 9:45 AM CDT Appointment Department of Radiology, [facility], in [place], [place] [address] [place] [address] Rupali Tate M.D. [address] [place] [address] 12/03/2024 10:00 AM CDT Telemedicine Division of Pulmonary Medicine in [place], [place] [address] [place] [address] Brad Hoffman M.D. [address] [place] [phone] documented as of this encounter Visit Diagnoses Diagnosis Shortness Of Breath Chronic Obstructive Pulmonary Disease (HCC) documented in this encounter Additional Health Concerns Assessment Noted Time PHQ-9 Depression Total Score: 6 04/29/19 20 12:40 PM DIRECTOR DIGITAL MARKETING documented as of this encounter Care Teams Senior Communications Specialist Relationship Specialty Start Date End Date Elsewhere, Pcp PCP - General Internal Medicine 04/24/23 documented as of this encounter
--- OUTSIDE RECORDS SUMMARY | 2024-09-12 07:45 | XMS_ITS | Clinical Summary ---
Author Organization [facility] Address [address] [place] [id number] Care Team Providers Care Respiratory Therapy Instructor Name Role Phone Rupali Tate MD Primary Care Provider [phone] Allergies Active Allergy Reactions Criticality Noted Date [...] unspecified vessel or lesion type, unspecified whether mcgrath or transplanted heart Take 1 tablet by mouth once daily. 90 tablet 3 9 Active Active Problems No known active problems Encounters Date Type Department Care Team Description 08/07/2024 Lab Requisition [facility] [phone] Rupali Tate MD from Last 3 Months Social History Tobacco Use Types Packs/Day Years Used Date Smoking Tobacco: Every Day Cigarettes 0.5 48.7 Started: 01/03/1976 Smokeless Tobacco: Never Tobacco Cessation:Ready [...] on file Legal Sex Female 8:02 AM EMERGENCY MANAGEMENT PROGRAM SPECIALIST Gender Identity Not on file Sexual Orientation Not on file Obstetrics History Last Filed Vital Signs Vital Sign Reading Time Taken Comments Blood Pressure 126/68 01/02/2019 12:51 PM CDT Pulse 102 01/02/2019 12:51 PM CDT Temperature 36.8 C (98.3 F) 02/18/2016 10:05 AM EMERGENCY MANAGEMENT PROGRAM SPECIALIST Respiratory Rate - - Oxygen Saturation 95% 01/02/2019 12:51 PM CDT Inhaled Oxygen Concentration - - Weight 78.3 kg (172 lb 9.6 oz) 01/02/2019 12:51 PM CDT Height 154.9 cm (5' 1) 01/02/2019 12:51 PM CDT Body Mass Index 32.61 01/02/2019 12:51 PM CDT Plan of Treatment Upcoming Encounters Date Type Department Care Team (Late st Contact Info) Description 10/04/2024 7:40 AM CDT Office Visit [facility] [address] [place] [address] Tin Lemus MD [address] [place] [address] Health Maintenance Due Date Last Done Comments Tetanus booster 12/06/1971 Depression screening for age 12+ 1972 HIV for age 15-65 12/06/1975 Hepatitis C screening for ag e 18-79 1978 Pneumococcal series for age 50+ (1 of 2 - PCV) 12/06/1979 Colonoscopy through age 75 2005 Lipids for age 45-75 2005 Mammogram for age 45-75 2005 Zoster (shingles) series for age 50+ (1 of 2) 2010 Pap test for age 21-65 06/21/2019 7, 06/20/2016 BMI (ht and wt on same day) for age 18+ 01/03/2020 01/02/2019, 02/18/2016 RSV vaccine for adults or (1 - Risk 60-74 years 1-dose series) 2020 COVID-19 vaccine series ( - season) 2023 Influenza Vaccine (#1) 2024 Hepatitis B series for 19+ Aged Out N o longer eligible based on patient's age to complete this topic Procedures Procedure Name Priority Date/Time Associated Diagnosis Comments [facility] MISCELLANEOUS SENDOUT Routine 08/07/2024 8:20 AM CDT MISCELLANEOUS SEND OUT Routine 8:20 AM CDT DATA INTEGRITY ANALYST THIN PREP PAP SCREEN IMAGED Routine 06/20/2016 5:30 PM CDT from Last 3 Months or Most Recently Relevant to Health Maintenance Results * [facility] MISCELLANEOUS SENDOUT (08/07/2024 8:20 AM CDT) [facility] MISCELLANEOUS SEND OUT COMMENT 08/15/2024 9:07 PM CDT [facility] Comment: Test Ordered: [id number] Serum Amyloid A (YANA) Serum Amyloid (YANA) 1.3 ug/mL 01 Reference Interval: 0.4 - 5.0 ug/mL Comments: Serum Amyloid A (YANA) is an acute-phase response protein. Values greater than the reference range indicate active acute or chronic inflammation. YANA may be used for evaluating disease severity and monitoring disease activity in various rheumatic and autoinflammatory diseases including rheumatoid arthritis, systemic lupus erythematosus, vasculitis, inflammatory bowel disease and microbial infections. Persistent elevated YANA values is associated with secondary amyloidosis and coronary heart disease. (1,2) Median values during Familial Mediterranean Fever attacks and attack-free periods were 433.5 (34 -1780) and 3.2 (0.1-25.0), respectively. (3) In attack-free periods, about 30% of FMF patients may have YANA >6. (4) This test was developed and its performance characteristics determined by [facility]. It has not been cleared or approved by the Food and Drug Administration. References: 1. Albino HM et al. Br Med J 1983;286:8614-3465 2. Maritza et al. Br Med J 2000;321:199-204 3. Cakan M et al. Clin Rheumatol 2020;39:249-253. 4. Sebastian Y et al. Seminars in Arthritis and Rheumatism, 2007;37(3):182-188. Other (Other) Client Collect / Unknown 08/07/2024 8:20 AM CDT 08/07/2024 10:38 PM CDT Narrative [facility] ([facility]) - 08/15/2024 9:07 PM CDT Performed At: 01 [employer] [address] [place] [id number] Joe Nelson MD Ph:[phone] Performed At: [address] [id number] Mallorie Colin MD Ph:[phone] us Rupali Tate MD LABORATORY Final Resu lt [facility] ([facility]) [address] [place] [address], * MISCELLANEOUS SEND OUT (08/07/2024 8:20 AM CDT) TEST NAME Serum Amyloid A 9:12 AM CDT [facility] SOURCE SERUM 08/08/2024 9:12 AM CDT [facility] PERFORMING LAB [facility] 08/08/2024 9:12 AM CDT [facility] REFERRAL LAB TEST # [id number] 08/08/2024 9:12 AM CDT [facility] IS THIS A [facility] TEST? Yes, [facility] Miscellaneous Sendout result 08/08/2024 9:12 AM CDT [facility] Is this a Sharma Test? No 08/08/2024 9:12 AM CDT [facility] Other (Other) Client Collect / Unknown 08/07/2024 8:20 AM CDT 08/07/2024 10:38 PM CDT us Rupali Tate MD SEND OUTS Final Resu lt [facility] [address] [place] [address], [place] * DATA INTEGRITY ANALYST THIN PREP PAP SCREEN IMAGED (06/20/2016 5:30 PM CDT) Case Report Gynecologic Cytology Report Case: [id number] Authorizing Provider: Unknown, Doctor Collected: 06/20/2016 1730 First Screen: Perlita Mann Received: 06/22/2016 1226 Specimen: DATA INTEGRITY ANALYST ThinPrep Vial Screening, Cervical/Vaginal 06/30/2016 11:31 AM CDT [facility] Conversion Logic [facility] INTERPRETATION/ RESULT NEGATIVE FOR INTRAEPITHELIAL LESION OR MALIGNANCY (NIL) (none) 06/30/2016 11:31 AM CDT [facility] at 1131 CDT SPECIMEN ADEQUACY Satisfactory for evaluation Endocervical component present 06/30/2016 11:31 AM CDT [facility] HPV REQUEST HPV and PAP 06/30/2016 11:31 AM CDT [facility] Last Pap Date 02/20/2012 06/30/2016 11:31 AM CDT [facility] Last Pap Result NIL 11:31 AM CDT [facility] Menstrual Status 06/30/2016 11:31 AM CDT [facility] Comment:N/A Automated Review Successful 06/30/2016 11:31 AM CDT [facility] Comment:Specimen processed s uccessfully by automated senior mainframe developer device, ThinPrep Imaging System, [employer] ANCILLARY TESTING DATA INTEGRITY ANALYST HPV Ordered, Please see separate report 06/30/2016 11:31 AM CDT [facility]-C ENTRAL LABORATORY Note The pap test is a screening technique, not a diagnostic procedure. It is used primarily to screen for squamous cancers and precursor lesions. Published studies have shown that it is subject to both false negative and false positive results. The pap test should not be used as the sole means to diagnose or exclude pre-malignant and malignant lesions. Interpreted at [facility] (Central Lab, [facility], [facility], [facility], [facility], [facility], [facility]) 06/30/2016 11:31 AM CDT [facility]-C ENTRAL LABORATORY Other (Cervical/Vagina l) 06/20/2016 5:30 PM CDT 06/22/2016 12:26 PM CDT us Doctor Unknown PATHOLOGY/CYTOLOGY Final Result [facility] LAB[facility]ATORY [address] [place] [address], from Last 3 Months or Most Recently Relevant to Health Maintenance Insurance [employer] Care Teams Respiratory Therapy Instructor Relationship Specialty Start Date End Date Rupali Tate MD [address] [place] [address] PCP - General Internal Medicine 02/22/10
[2024-09-12 07:46] VITALS: BP 175/78; PULSE 84; RESP 20; O2SAT 98; BMI 40.6
--- NOTE | 2024-09-12 08:51 | CRLHL7_ITS ---
For Patients: As a result of the Century Cures Act, medical imaging exams and procedure reports are released immediately into your electronic medical record. You may view this report before your referring provider. If you have questions, please contact your health care provider. Indication: Right knee pain Technique: Three views right knee Comparison: None Findings/Impression: Bones: No evidence of fracture. Joint spaces: Moderate to large knee effusion. No dislocation. Soft tissues: Atherosclerosis. Dictated by Eleuterio Noonan MD @ 09/12/2024 9:25:19 AM (Electronically Signed)
--- OUTSIDE RECORDS SUMMARY | 2024-09-12 09:02 | XMS_ITS | Encounter Summary ---
Author Organization [facility] Address [address] [place] [address] Care Team Providers Care Industrial Maintenance Repairer Helper Name Role Phone Elsewhere, Pcp Primary Care Provider Unavailabl e Reason for Referral * Outpatient (Routine) - Authorized Specialty Diagnoses / Procedures Referred By Carey t Referred To Contact Dermatology Diagnoses Rash Rupali Tate M.D. [address] [place] [address] Phone: tel: fax: [facility] Referral ID Status Reason Start Date Expiration Date V isits Requested Visits Authorized [id number] Authorized 09/12/2024 03/14/2026 1 1 Encounter Details Date Type Department Care Team (Late st Contact Info) Description 09/12/2024 [facility] [address] [place], [place] [phone] Rupali Tate M.D. [address] [place] [phone] Rash (Primary Dx) Social History Tobacco Use Types [...] your living situation today? I have a [facility] place to live 05/23/2024 Education Answer Date Recorded What is the highest level of school you have completed or the highest degree you have received? Associate degree: academic program 02/12/2019 Comments No Sex and Gender Information Value Date Recorded Sex Assigned at Female 05/07/2023 12:13 PM SAFETY FIRE BOSS Legal Sex Female 3:09 AM SAFETY FIRE BOSS Gender Identity Female 07/20/2019 7:51 PM CDT Sexual Orientation Straight 07/20/2019 7: 51 PM CDT documented as of this encounter Plan of Treatment Upcoming Encounters Date Type Department Care Team (Late st Contact Info) Description 09/23/2024 9:30 AM CDT Telemedicine Department of Cardiovascular Medicine in [place], [place] [address] [place] [phone] Wilda Jaramillo APRN, C.N.P., M.S.N. [address] [place] [phone] 10/22/2024 9:45 AM CDT Appointment Department of Radiology, [facility], in [place], [place] [address] [place] [phone] Rupali Tate M.D. [address] [place] [phone] 12/03/2024 10:00 AM CDT Telemedicine Division of Pulmonary Medicine in [place], [place] [address] [place] [phone] Brad Hoffman M.D. [address] [place] [phone] Scheduled Referrals Name Type Priority Associated Diagnoses Order Schedule Dermatology Referral Outpatient Referral Routine Rash Expected: 09/12/2024 (Approximate), Expires: 12/13/2025 documented as of this encounter Visit Diagnoses Diagnosis Rash- Primary documented in this encounter Additional Health Concerns Assessment Noted Time PHQ-9 Depression Total Score: 6 04/29/19 20 12:40 PM SAFETY FIRE BOSS documented as of this encounter Care Teams Industrial Maintenance Repairer Helper Relationship Specialty Start Date End Date Elsewhere, Pcp PCP - General Internal Medicine 04/24/23 documented as of this encounter
--- NOTE | 2024-09-12 09:14 | ED.GENADULT ---
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 Pain is been present for about 2 or 3 weeks but has been getting worse over the past few days. In particular she notes pain on the right anteromedial knee. Hurts when she steps down on it and hurts when she tries to bend her knee. It is not really been swollen. No bruising or redness. No known injury. She review overnight shift last night is now having worsening pain. She is getting so bad that she feels that sometimes when she stepped on a that it might give out. It is not actually given out yet and she has not fallen. It is not locking. She has no previous knee surgery. She does have a past medical history COPD, hyperlipidemia, hypertension, elevated BMI, carotid stenosis, abdominal aortic aneurysm, carpal tunnel syndrome. No previous knee surgery. She is on aspirin but no other anticoagulants. She is not having any pain or proximally in her quad or thigh. No pain in her calf or lower leg. Related Data Home Medications ?Medication ?Instructions ?Recorded ?Confirmed aspirin 325 mg tablet,delayed 325 mg PO HS 02/10/22 09/12/24 release ipratropium 0.5 mg-albuterol 3 mg 3 ml inhalation Q6H PRN 10/24/23 07/25/24 (2.5 mg base)/3 mL nebulization soln valsartan 160 mg tablet 160 mg PO HS 01/30/24 09/12/24 tiotropium bromide 2.5 2 inh inhalation DAILY 06/28/24 09/12/24 mcg/actuation mist for inhalation (Spiriva Respimat) Previous Rx's ?Medication ?Instructions ?Recorded fluticasone furoate 100 1 inh inhalation DAILY #60 ea 02/04/24 mcg-vilanterol 25 mcg/dose inhalation powder (Breo Ellipta) ipratropium 0.5 mg-albuterol 3 mg 3 ml inhalation Q4H PRN #180 mL 02/04/24 (2.5 mg base)/3 mL nebulization soln ondansetron 4 mg disintegrating 4 mg PO Q6H PRN #20 tabs 02/04/24 tablet albuterol sulfate 90 mcg/actuation 2 puff inhalation Q6H PRN 02/06/24 aerosol inhaler shortness of breath or wheezing #8.5 grams metoprolol tartrate 25 mg tablet 25 mg PO BID #180 tabs 06/13/24 nitroglycerin 0.4 mg sublingual 0.4 mg sublingual Q5M PRN angina 06/13/24 tablet #30 tabs fluocinonide 0.05 % topical 1 applic topical BID #30 grams 07/25/24 ointment atorvastatin 80 mg tablet 80 mg PO HS #90 tabs 08/06/24 Allergies Allergy/AdvReac Type Severity Reaction Status Date / Time Penicillins Allergy Severe swollen Verified 09/12/24 07:53 legs Sulfa (Sulfonamide Allergy Severe Hives Verified 09/12/24 07:53 Antibiotics) [facility] Medical History History of syncope ?Z87.898 - Personal history of other specified conditions (ICD-10) Surgical History History of laparoscopy ?Z98.890 - Other specified postprocedural states (ICD-10) History of tubal ligation ?Z98.51 - Tubal ligation status (ICD-10) Social History Problems where you live details: n/a Smoking Status: Never smoker How often do you have a drink containing alcohol: monthly or less AUDIT-C Alcohol total score: 1 Non-prescribed substance use: denies use Exam Narrative: Exam Narrative: Constitutional: Appears well-developed and well-nourished. Active. Non-toxic appearing. Polite. HENT: Head: Atraumatic. No signs of injury. Nose: No nasal discharge. Mouth/Throat: Mucous membranes are moist. Pharynx is normal. Tonsils symmetric. Uvula midline. Airway patent. Eyes: Conjunctivae normal and EOM are normal. Pupils are equal, round, and reactive to light. Right eye exhibits no discharge. Left eye exhibits no discharge. No icterus. Neck: Normal range of motion. Neck supple. No adenopathy. No stridor. Cardiovascular: Normal rate and regular rhythm.. Brisk capillary refill Pulmonary/Chest: Effort normal. No stridor. No respiratory distress. Musculoskeletal: Normal except for her right knee. Right lower extremity: Hip, quad, hamstring, femur are nontender. Knee: Normal inspection. No swelling. No redness. No bruising. No warmth palpation. She is tender to palpation over the anteromedial knee/perhaps the medial epicondyle of her femur. There is no redness or warmth there. She is able to actively fully extend her knee and flex it to about 90. She does not have any ligamentous laxity on ligament testing but does have significant pain when I stress her MCL. I am not able to elicit any locking with flexing her knee or internal/external rotation. No tenderness over the tibia, fibula, gastrocnemius, Achilles, ankle. Intact distal neurovascular function. Normal distal cap refill. Neurological: Alert. Normal strength. No cranial nerve deficit or sensory deficit. Coordination normal. GCS eye subscore is 4. GCS verbal subscore is 5. GCS motor subscore is 6. Skin: Skin is warm. No rash noted. Const: Vital Signs, click to edit/add: Vital Signs - 24 hr 09/12/24 07:46 Pulse Rate [Right Pulse Oximeter] 84 Respiratory Rate 20 Blood Pressure [Ri ght Upper Arm] 175/78 H Pulse Oximetry 98 Oxygen Delivery Me thod Room Air Course Vital Signs Vital signs: Initial Vital Signs Pulse Rate 84 09/12/24 07:46 Respiratory Rate 20 09/12/24 07:46 Blood Pressure 175/78 H 09/12/24 07:46 Blood Pressure Mean 110 H 09/12/24 07:46 Blood Pressure Position Sitting 09/12/24 07:46 Pulse Oximetry 98 09/12/24 07:46 Oxygen Delivery Method Room Air 09/12/24 07:46 Vital Signs Pulse Rate 84 09/12/24 07:46 Respiratory Rate 20 09/12/24 07:46 Blood Pressure 175/78 H 09/12/24 07:46 Pulse Oximetry 98 09/12/24 07:46 Oxygen Delivery Method Room Air 09/12/24 07:46 Pulse Rate 84 09/12/24 07:46 Respiratory Rate 20 09/12/24 07:46 Blood Pressure 175/78 H 09/12/24 07:46 Pulse Oximetry 98 09/12/24 07:46 Oxygen Delivery Method Room Air 09/12/24 07:46 Medications Administered Medications: Discontinued Medications Generic Name Dose Route Start Last Admin Trade Name Xenia PRN Reason Stop Dose Admin Ibuprofen 600 mg 09/12/24 09:00 09/12/24 09:05 Ibuprofen 200 Mg Tablet PO 09/12/24 09:01 Not Given ONCE ONE Medical Decision Making MDM Narrative Medical decision making narrative: Pleasant 63-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 It is atraumatic it started a couple weeks so but has been getting worse the past few nights when she has been on shift. It has gotten to the point where it is starting to feel like it is going to give out and is quite painful. She is having trouble walking on it. Differential for knee pain is broad. No history of trauma we did obtain x-rays to look for signs of arthritis or other abnormality. X-rays of her knee are negative by my read. There is no redness or warmth to raise suspicion for septic arthritis, gouty arthritis, prepatellar bursitis, overlying cellulitis. No rash or blisters to suggest shingles. She is not having any pain or swelling in the calf to raise concern for DVT or Rosenbaum cyst. Patient is placed into a knee immobilizer. She will follow-up with the [facility]. Imaging Data XR R knee: Attestation: I have reviewed the pertinent imaging results. My impression: no acute fracture Radiologist's impression: Findings/Impression: Bones: No evidence of fracture. Joint spaces: Moderate to large knee effusion. No dislocation. Soft tissues: Atherosclerosis. Discharge Plan Discharge Clinical Impression: Acute pain of right knee Patient Disposition: Home, Self-Care Condition: Stable Instructions: Knee Pain (ED) Additional Instructions: As we discussed, please call the [facility] to schedule an ER follow-up appointment. You can call 507 make your appointment. For now, wear the knee immobilizer when you are up and around to help protect her knee from any further injury. You can use Tylenol 1000 mg 3 times daily or ibuprofen 600 mg 3 times daily as needed help treat pain. You can also do an ice pack for 15 or 20 minutes every 2-3 hours to reduce pain. Please wear the knee immobilizer in 1 year up and walking to help protect her knee and keep it from getting re-injured. If you have worsening pain, or new problems such as redness or swelling of your knee, pain spreading throughout your leg, or any other problems, please come back to the ER right away. Prescriptions: No Action aspirin 325 mg tablet,delayed release (DR/EC) 325 mg PO HS fluocinonide 0.05 % ointment 1 applic topical BID Qty: 30 3RF ipratropium-albuterol 0.5 mg-3 mg(2.5 mg base)/3 mL solution for nebulization 3 ml inhalation Q6H PRN valsartan 160 mg tablet 160 mg PO HS ipratropium-albuterol 0.5 mg-3 mg(2.5 mg base)/3 mL Solution For Nebulization 3 ml inhalation Q4H PRNQty: 180 0RF ondansetron 4 mg Tablet,Disintegrating 4 mg PO Q6H PRNQty: 20 0RF fluticasone furoate-vilanterol [Breo Ellipta] 100-25 mcg/dose blister with device 1 inh inhalation DAILY Qty: 60 0RF Spiriva Respimat 2.5 mcg/actuation mist 2 inh INHALATION DAILY albuterol sulfate 90 mcg/actuation HFA aerosol inhaler 2 puff inhalation Q6H PRN (Reason: shortness of breath or wheezing) Qty: 8.5 3RF metoprolol tartrate 25 mg tablet 25 mg PO BID Qty: 180 3RF nitroglycerin 0.4 mg tablet, sublingual 0.4 mg sublingual Q5M PRN (Reason: angina) Qty: 30 7RF atorvastatin 80 mg tablet 80 mg PO HS Qty: 90 3RF Follow Up/Referrals: Rupali Tate MD [Primary Care Provider, Internal Medicine] Stand Alone Forms: Work/School Release, [facility] Info Instructions
== END 2024-09-12 10:11 | disposition home or self-care (01) ==
PROVIDERS: Emergency Provider Emergency Medicine; PCP Internal Medicine
DX: M25.561 Pain in right knee (principal)
CPT/HCPCS: 73562; 99282; 99283

== ENCOUNTER 2024-09-23 18:11 | Outpatient (CLI) | payer OTHER, SELFPAY ==
--- NOTE | 2024-09-23 18:15 | MR_ITS ---
[facility] [address] [facility] [address] Phone:?[phone] Fax:?[phone] Referring Physician Information: Demarco Lopez M.D. [address] [facility] [address] Phone:?[phone] Fax:?[phone] Patient:Tru Allison D.O.B:?1960 Sex:?Female Phone:?[phone] [facility] MRN:?[id number] Exam Date:?09/23/2024 EXAM: MRI of the RIGHT KNEE, without contrast CLINICAL HISTORY: Ongoing right knee pain. Evaluate for medial meniscal tear. COMPARISONS: Plain radiographs 09/12/2024. TECHNICAL: MR sequences of the right knee: sagittals: PD, T2 FS coronals: PD, STIR, T2 axials: PD, T2 FS CONTRAST: None SEDATION: None FINDINGS: Bones: No fracture or destructive osseous lesion. Patellofemoral joint: Cartilage: Intact. Retinacula: The medial and lateral retinacula are intact. Fat pads: The infrapatellar, quadriceps, and prefemoral fat pads are unremarkable. Knee joint: Effusion: Moderate to large right knee joint effusion. Popliteal cyst: Moderately sized popliteal cyst. Intra-articular bodies: None. Posteromedial corner: The semimembranosus and pes anserine tendons are intact. Medial compartment: Medial meniscus: Complex tear from the body through posterior horn/posterior root junction of the medial meniscus with a 7 x 4 mm flap of torn meniscal tissue from the body flipped superomedial to the jointline. Marked medial meniscal extrusion. 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 Edema-like signal within the weight-bearing portion of the medial femoral condyle and peripheral portion of the medial tibial plateau may reflect reactive bone marrow edema secondary to medial meniscal tearing and/or overlying chondral loss. Lateral compartment: Lateral meniscus: No definitive evidence of lateral meniscal tear although evaluation is markedly compromised by poor ujdgqc-vd-cjlad. Cartilage: No discrete chondral defect is seen although evaluation is markedly suboptimal because of poor pqqbur-jd-itqob. Ligaments: Anterior cruciate ligament: Intact. Posterior cruciate ligament: Intact. Medial collateral ligament: Intact. Posterior oblique ligament: Intact. Fibular collateral ligament: Intact. Posterolateral corner: The distal biceps femoris tendon, iliotibial band, popliteus tendon, popliteus muscle, popliteofibular ligament, and arcuate ligament are intact. Extensor mechanism: Patellar tendon: Intact. Quadriceps tendon: Intact. IMPRESSION: 1. Complex tear from the body through posterior horn/posterior root junction of the medial meniscus with a 7 x 4 mm flap of torn meniscal tissue from the body flipped superomedial to the jointline. Marked medial meniscal extrusion. 2. Edema-like signal within the weight-bearing portion of the medial femoral condyle and peripheral portion of the medial tibial plateau may reflect reactive bone marrow edema secondary to medial meniscal tearing and/or overlying chondral loss. 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 3. No definitive evidence of lateral meniscal tear or discrete lateral compartment chondral defect although it must be noted that evaluation is markedly compromised by poor uttway-mo-nwahr. 4. Moderate to large right knee joint effusion. Moderately sized popliteal cyst. 5. No ligamentous or tendinous pathology of the right knee. RCB Electronically signed on 09/24/2024 8:35:00 AM by Ken Hlae M.D.
== END 2024-09-23 18:12 | disposition home or self-care (01) ==
LOC: MRI 18:12
PROVIDERS: PCP Internal Medicine; Visit Provider Orthopaedic Surgery Sports Medicine
DX: M25.561 Pain in right knee (principal); S83.231A Complex tear of medial meniscus, current injury, right knee, initial encounter; S83.241A Other tear of medial meniscus, current injury, right knee, initial encounter; M94.261 Chondromalacia, right knee; M25.461 Effusion, right knee
CPT/HCPCS: 73721

== ENCOUNTER 2024-10-21 12:47 | Outpatient (CLI) | payer OTHER, SELFPAY ==
--- NOTE | 2024-10-21 13:00 | CRLHL7_ITS ---
For Patients: As a result of the Century Cures Act, medical imaging exams and procedure reports are released immediately into your electronic medical record. You may view this report before your referring provider. If you have questions, please contact your health care provider. INDICATION: Lumbar radiculopathy. TECHNIQUE: Multisequence multiplanar MRI of the lumbar spine without the use of intravenous contrast. COMPARISON: None available. FINDINGS: Transitional S1 vertebral body. Normal vertebral alignment, stature, and intrinsic marrow signal intensity. Mild multilevel disc desiccation and height loss. The conus medullaris terminates normally at the L1-L2 level. The paraspinal soft tissues are unremarkable. T12-L1 and L1-L2: No significant spinal canal or neural foraminal stenosis. L2-L3 and L3-L4: Symmetric disc bulging. No significant spinal canal or neural foraminal stenosis. L4-L5: Symmetric disc bulge. Moderate facet joint arthrosis. No significant spinal canal or neural foraminal stenosis. L5-S1: Posterior disc bulge eccentric to the left. Mild narrowing of the left lateral recess. No high-grade spinal canal stenosis or significant neural foraminal narrowing. IMPRESSION: 1. Transitional S1 vertebral body. 2. At L5-S1, eccentric disc bulge resulting in mild narrowing of the left lateral recess with questionable abutment of the underlying traversing left S1 nerve root (series 7, image 29). 3. Moderate lumbar spondylosis elsewhere without significant spinal canal or neural foraminal stenosis. Dictated by Abdi Medina MD @ 10/21/2024 3:28:05 PM (Electronically Signed)
== END 2024-10-21 12:48 | disposition home or self-care (01) ==
LOC: MRI 12:48
PROVIDERS: PCP Internal Medicine; Visit Provider Family Medicine
DX: M54.16 Radiculopathy, lumbar region (principal); M47.816 Spondylosis without myelopathy or radiculopathy, lumbar region; M51.27 Other intervertebral disc displacement, lumbosacral region
CPT/HCPCS: 72148

== ENCOUNTER 2024-10-30 06:23 | Day surgery (SDC) | payer OTHER, SELFPAY ==
[2024-10-30] VITALS (7 sets, daily range): BP systolic 130–172; BP diastolic 56–99; PULSE 66–74; RESP 16; TEMP 36.2–36.6; O2SAT 95–98
--- NOTE | 2024-10-30 06:51 | SUR.PREOP ---
SAME DAY SURGERY LOCAL INJECTION SITE VERIFICATION WAS PERFORMED BY SURGEON/PA AND PATIENT PRIOR TO LOCAL ANESTHETIC BEING INJECTED TO OPERATIVE SITE.
[2024-10-30] MEDS: BUPIVACAINE 0.5% 30 ML INJECTION (06:55)
[2024-10-30] MEDS: ETHYL CHLORIDE 1 APPLICATION 1 APPLIC TOPICAL (06:55)
[2024-10-30] MEDS: LIDOCAINE 1%-EPI 1:100,000 20 ML INFILTRATI (06:55)
--- NOTE | 2024-10-30 07:33 | PM.ORPRC ---
Procedure Note Date of procedure: 10/30/24 Procedure: PREOPERATIVE DIAGNOSIS: 1. Left carpal tunnel syndrome POSTOPERATIVE DIAGNOSIS: 1. Left carpal tunnel syndrome PROCEDURE: 1. Left open carpal tunnel release SURGEON: Demarco Lopez MD. STUDENT SERVICES ADVISOR: AMADOR Hall ANESTHESIA: Local anesthetic (50:50 mixture of 1% lidocaine with epi and 0.5% marcaine plain) - 10ml total IMPLANTS: None EBL: 2 mL TOURNIQUET: None COMPLICATIONS: None evident INDICATIONS: The patient is a pleasant 63-year-old female who has experienced left hand numbess/tingling affecting the radial 3.5 digits for multiple months. It has progressively gotten worse. Nonoperative management has been tried and failed, and therefore surgery was recommended. DESCRIPTION OF PROCEDURE: Following a thorough discussion of risks, benefits, and alternatives consent was obtained and the operative extremity was marked. The patient was brought to the operating room and placed supine on the operating table. Local anesthesia induction was undertaken in preop holding. No antibiotics were administered as this was planned to be a local case only. Proper time-out was performed identifying proper patient, site, and procedure. The operative extremity was prepped and draped in the appropriate sterile fashion using ChloraPrep. An incision was made in line with the radial border of the ring finger beginning 1 cm distal to the distal wrist crease and progressing for another 2.5cm distal. Caution was taken to stay proximal to Dejesus's cardinal line. Sharp incision through the skin, subcutaneous tissue, and palmar fascia was performed. The thenar musculature was bluntly elevated off the transverse carpal ligament. The ligament was directly visualized, and divided sharply with a 15 blade. This was released from its most proximal to the most distal extent. Metzenbaum scissor was also utilized to release the fascia extension proximally. We confirmed complete release of the transverse carpal ligament. Closure was performed with 4-O nylon in interrupted fashion. Soft dressings were applied, and the patient was transferred to the recovery room in stable condition. PLAN: 1. Encourage elevation of the operative extremity. 2. Range of motion of the fingers and hand/wrist as tolerated. 3. Ibuprofen/acetaminophen and/or oxycodone as needed for pain control. 4. Follow up with PA visit or nurse visit in 12-16 days for wound check and suture removal.
[2024-10-30] MEDS: BACITRACIN OINTMENT BULK TUBE 1 APPLIC TOPICAL (07:37)
== END 2024-10-30 08:09 | disposition home or self-care (01) ==
PROVIDERS: PCP Internal Medicine; Visit Provider Orthopaedic Surgery Sports Medicine
PROC: (CPT 64721; principal; 2024-10-30 07:15)
DX: G56.02 Carpal tunnel syndrome, left upper limb (principal)
CPT/HCPCS: 64721; J0665

== ENCOUNTER 2024-11-12 10:45 | Outpatient (CLI) | payer OTHER, SELFPAY | END 2024-11-12 10:46 | disposition home or self-care (01) | LOC: INJ CL 10:45 | PROVIDERS: PCP Internal Medicine; Visit Provider Family Medicine | DX: M54.16 Radiculopathy, lumbar region (principal); M51.369 Other intervertebral disc degeneration, lumbar region without mention of lumbar back pain or lower extremity pain | CPT/HCPCS: 62323; J0702; Q9966 ==

== ENCOUNTER 2024-12-23 15:50 | Outpatient (CLI) | payer OTHER, SELFPAY | END 2024-12-23 15:51 | disposition home or self-care (01) | PROVIDERS: PCP Internal Medicine; Visit Provider Family Medicine | DX: L40.9 Psoriasis, unspecified (principal); M25.50 Pain in unspecified joint | CPT/HCPCS: 86140; 86200; 86431 ==